=== PATIENT | male | born 1970 | race Caucasian/White ===

== ENCOUNTER 2018-07-15 13:27 | Emergency (ER) | payer OTHER ==
[2018-07-15] MEDS ORDERED: KETOROLAC 30 MG/ML INJ ONE (15:25)
--- NOTE | 2018-07-15 15:39 | RAD REPORT ---
EXAM DESCRIPTION: CT - Stone Protocol - 07/15/2018 3:29 pm CLINICAL HISTORY: Flank pain. FLANK PAIN COMPARISON: Abdomen Pelvis W Contrast dated 10/02/2016 TECHNIQUE: Axial images were obtained without oral or IV contrast. Lack of contrast limits solid org an and vascular assessment. The [id number]-idos spans the entirety of the system partially obscuring uppermost abdomen and lung bases. Coronal reformatted images were obtained and reviewed. All CT scans are performed using dose optimization technique as appropriate and may include automated exposure control or mA/KV adjustment according to patient size. FINDINGS: The lower lung jennings are clear. Imaged portions of the liver and spleen show no suspicious findings on non-contrast imaging. The panc reas and adrenal glands are normal. No pathologic lymphadenopathy in the abdomen or pelvis. Small bilateral renal calculi noted without hydronephrosis. The largest stone measuring 4 mm in the i nferior left calyx. No bowel obstruction, free air, free fluid or abscess. Normal appendix noted. No significant bony abnormality. Postsurgical changes left inguinal region. Small fat containing umbi lical hernia. IMPRESSION: Bilateral nephrolithiasis without hydronephrosis.
--- NOTE | 2018-07-15 15:44 | ER ---
Nurse's Notes [facility] Name: Chi Kelley Age: 48 yrs Sex: Male : 1970 Arrival Date: 07/15/2018 Time: 13:30 Bed 5 Private MD: None, None Diagnosis: Kidney stones;Radiculopathy, lumbar region Presentation: 07/15 14:03 Presenting complaint: Patient states: right lower back pain radiating down right leg aa5 that began Wednesday. Denies known injury. Transition of care: patient was not received from another setting of care. Onset of symptoms was 2017. Risk Assessment: Do you want to hurt yourself or someone else? Patient reports no desire to harm self or others. Initial Sepsis Screen: Does the patient meet any 2 criteria? No. Patient's initial sepsis screen is negative. Does the patient have a suspected source of infection? No. Patient's initial sepsis screen is negative. Care prior to arrival: None. 14:03 Method Of Arrival: Wheelchair aa5 14:03 Acuity: DORIAN 4 aa5 Historical: - Allergies: 14:04 No Known Allergies; aa5 - PMHx: 14:04 chronic back pain; COPD; Hypothyroidism; aa5 - PSHx: 14:04 None; aa5 - Immunization history:: Adult Immunizations unknown. - Social history:: Smoking status: Patient uses tobacco products, smokes one-half pack cigarettes per day. - Ebola Screening: : No symptoms or risks identified at this time. Screenin:32 Abuse screen: Denies threats or abuse. Denies injuries from another. Nutritional ch screening: No deficits noted. Tuberculosis screening: No symptoms or risk factors identified. Fall Risk None identified. Assessment: 15:32 General: Appears in no apparent distress. comfortable, Behavior is calm, cooperative, ch appropriate for age. Pain: Complains of pain in low back area Pain radiates to right leg Pain currently is 8 out of 10 on a pain scale. Pain began wednesday. Neuro: No deficits noted. Level of Consciousness is awake, alert, obeys commands, Oriented to person, place, time, situation, Military Technician are equal bilaterally Moves all extremities. Full function Gait is steady, Speech is normal, Facial symmetry appears normal, Facial symmetry: tongue is midline, Pupils are PERRLA. Cardiovascular: No deficits noted. Respiratory: No deficits noted. GI: No signs and/or symptoms were reported involving the gastrointestinal system. : No signs and/or symptoms were reported regarding the genitourinary system. Derm: Skin is pink, warm \T\ dry. Musculoskeletal: Circulation, motion, and sensation intact. Capillary refill < 3 seconds, in bilateral fingers. toes. Range of motion: intact in all extremities, Swelling absent. 15:56 Reassessment: Patient appears in no apparent distress at this time. Patient and/or ch family updated on plan of care and expected duration. Pain level reassessed. Patient is alert, oriented x 3, equal unlabored respirations, skin warm/dry/pink. Patient states feeling better. Patient states symptoms have improved. Vital Signs: 14:04 BP 125 / 96; Pulse 90; Resp 18 S; Temp 97.9(TE); Pulse Ox 99% on R/A; Weight 86.18 kg aa5 (R); Height 5 ft. 9 in. (175.26 cm) (R); Pain 9/10; 15:32 BP 128 / 88; Pulse 78; Resp 15; Temp 98.8; Pulse Ox 99% on R/A; Pain 8/10; ch 15:56 BP 119 / 77; Pulse 76; Resp 14; Temp 98.5; Pulse Ox 99% on R/A; Pain 7/10; ch 14:04 Body Mass Index 28.06 (86.18 kg, 175.26 cm) aa5 ED Course: 13:30 Patient arrived in ED. mr 13:31 None, None is Private Physician. mr 14:04 Triage completed. aa5 14:04 Arm band placed on. aa5 14:24 Andrew Jewell RN is Primary Nurse. jl 14:25 Melinda Guaman FNP-C is [facility]. snw 14:25 Yassine Jauregui MD is Attending Physician. snw 15:18 Primary Nurse role handed off by Andrew Jewell RN 15:18 Jazmin Ramirez, MELINA is Primary Nurse. 15:29 CT Stone Protocol In Process Unspecified. EDMS 15:32 Patient has correct armband on for positive identification. Bed in low position. Call ch light in reach. Side rails up X 1. Pulse ox on. NIBP on. 15:32 No provider procedures requiring assistance completed. Patient did not have IV access ch during this emergency room visit. Administered Medications: 15:24 Drug: TORadol 60 mg Route: IM; Site: right gluteus; ss Outcome: 15:43 Discharge ordered by . snw 15:57 Discharged to home ambulatory. 15:57 Condition: stable 15:57 Discharge instructions given to patient, family, Instructed on discharge instructions, follow up and referral plans. medication usage, Demonstrated understanding of instructions, follow-up care, medications, Prescriptions given X 2. 15:58 Patient left the ED. Signatures: Dispatcher [employer] EDMS Jazmin Ramirez, RN RN Melinda Guaman, MUFFLER MECHANIC-C MUFFLER MECHANIC-Csnw Gail Greer mr Abbi Torre, RN RN aa5 Julissa Rico RN RN Andrew Seay RN RN jl7
--- NOTE | 2018-07-15 15:44 | EDPHYS ---
Physician Documentation [facility] Name: Chi Kelley Age: 48 yrs Sex: Male : 1970 Arrival Date: 07/15/2018 Time: 13:30 Bed 5 Private MD: None, None ED Physician Yassine Jauregui HPI: 07/15 15:57 This 48 yrs old Male presents to ER via Wheelchair with complaints of Back snw Pain. 15:57 The patient presents with pain that is acute, with no known mechanism of injury. The snw symptoms are located in the low back. Onset: The symptoms/episode began/occurred suddenly, 3 day(s) ago, and became worse today, and became persistent. The pain radiates to the medial aspect of right thigh and right quadriceps. Associated signs and symptoms: The patient has no apparent associated signs or symptoms. The problem was sustained from unknown cause. Severity of symptoms: At their worst the symptoms were moderate. The patient has experienced similar episodes in the past. It is unknown whether or not the patient has recently seen a physician. 15:58 denies trauma, fever, hematuria. snw Historical: - Allergies: 14:04 No Known Allergies; aa5 - PMHx: 14:04 chronic back pain; COPD; Hypothyroidism; aa5 - PSHx: 14:04 None; aa5 - Immunization history:: Adult Immunizations unknown. - Social history:: Smoking status: Patient uses tobacco products, smokes one-half pack cigarettes per day. - Ebola Screening: : No symptoms or risks identified at this time. ROS: 15:55 Constitutional: Negative for fever, chills, and weight loss, Eyes: Negative for injury, snw pain, redness, and discharge, ENT: Negative for injury, pain, and discharge, Neck: Negative for injury, pain, and swelling, Cardiovascular: Negative for chest pain, palpitations, and edema, Respiratory: Negative for shortness of breath, cough, wheezing, and pleuritic chest pain, Abdomen/GI: Negative for abdominal pain, nausea, vomiting, diarrhea, and constipation, Back: Negative for injury and pain, : Negative for injury, bleeding, discharge, and swelling, Skin: Negative for injury, rash, and discoloration, Neuro: Negative for headache, weakness, numbness, tingling, and seizure, Psych: Negative for depression, anxiety, suicide ideation, homicidal ideation, and hallucinations. 15:55 Back: Negative for injury. + pain to right flank with radiation around to right anterior thigh MS/Extremity: Negative for injury and deformity. Exam: 15:47 Constitutional: This is a well developed, well nourished patient who is awake, alert, snw and in no acute distress. Head/Face: Normocephalic, atraumatic. Eyes: Pupils equal round and reactive to light, extra-ocular motions intact. Lids and lashes normal. Conjunctiva and sclera are non-icteric and not injected. Cornea within normal limits. Periorbital areas with no swelling, redness, or edema. ENT: Nares patent. No nasal discharge, no septal abnormalities noted. Tympanic membranes are normal and external auditory canals are clear. Oropharynx with no redness, swelling, or masses, exudates, or evidence of obstruction, uvula midline. Mucous membranes moist. Neck: Trachea midline, no thyromegaly or masses palpated, and no cervical lymphadenopathy. Supple, full range of motion without nuchal rigidity, or vertebral point tenderness. No Meningismus. Chest/axilla: Normal chest wall appearance and motion. Nontender with no deformity. No lesions are appreciated. Cardiovascular: Regular rate and rhythm with a normal S1 and S2. No gallops, murmurs, or rubs. Normal PMI, no JVD. No pulse deficits. Respiratory: Lungs have equal breath sounds bilaterally, clear to auscultation and percussion. No rales, rhonchi or wheezes noted. No increased work of breathing, no retractions or nasal flaring. Abdomen/GI: Soft, non-tender, with normal bowel sounds. No distension or tympany. No guarding or rebound. No evidence of tenderness throughout. Back: No spinal tenderness. Mild costovertebral tenderness to right. Full range of motion. Skin: Warm, dry with normal turgor. Normal color with no rashes, no lesions, and no evidence of cellulitis. MS/ Extremity: Pulses equal, no cyanosis. Neurovascular intact. Full, normal range of motion. Neuro: Awake and alert, GCS 15, oriented to person, place, time, and situation. Cranial nerves II-XII grossly intact. Motor strength 5/5 in all extremities. Sensory grossly intact. Cerebellar exam normal. Normal gait. Vital Signs: 14:04 BP 125 / 96; Pulse 90; Resp 18 S; Temp 97.9(TE); Pulse Ox 99% on R/A; Weight 86.18 kg aa5 (R); Height 5 ft. 9 in. (175.26 cm) (R); Pain 9/10; 15:32 BP 128 / 88; Pulse 78; Resp 15; Temp 98.8; Pulse Ox 99% on R/A; Pain 8/10; ch 15:56 BP 119 / 77; Pulse 76; Resp 14; Temp 98.5; Pulse Ox 99% on R/A; Pain 7/10; ch 14:04 Body Mass Index 28.06 (86.18 kg, 175.26 cm) aa5 MDM: 14:26 Patient medically screened. snw 15:57 Data reviewed: vital signs, nurses notes. Data interpreted: Pulse oximetry: on room air snw is 99 %. Interpretation: normal. Counseling: I had a detailed discussion with the patient and/or guardian regarding: the historical points, exam findings, and any diagnostic results supporting the discharge/admit diagnosis, the presence of at least one elevated blood pressure reading (>120/80) during this emergency department visit, radiology results, the need for outpatient follow up, to return to the emergency department if symptoms worsen or persist or if there are any questions or concerns that arise at home. Special discussion: I have referred the patient to see his PCP for further evaluation of high blood pressure. Based on the history and exam findings, there is no indication for further emergent testing or inpatient evaluation. I discussed with the patient/guardian the need to see the primary care provider for further evaluation of the symptoms. 07/15 15:15 Order name: CT Stone Protocol; Complete Time: 15:42 snw Administered Medications: 15:24 Drug: TORadol 60 mg Route: IM; Site: right gluteus; ss Disposition: 17:28 Co-signature as Attending Physician, Yassine Jauregui MD. rn Disposition: 07/15/18 15:43 Discharged to Home. Impression: Kidney stones, Radiculopathy, lumbar region. - Condition is Stable. - Discharge Instructions: Kidney Stones, Lumbosacral Radiculopathy, Heat Therapy, Back Injury Prevention. - Prescriptions for Diclofenac Sodium 75 mg Oral Tablet Sustained Release - take 1 tablet by ORAL route 2 times per day; 30 tablet. orphenadrine citrate 100 mg Oral Tablet Sustained Release - take 1 tablet by ORAL route 2 times per day As needed; 20 tablet. - Medication Reconciliation Form, Thank You Letter, Antibiotic Education, Prescription Opioid Use form. - Follow up: Private Physician; When: 2 - 3 days; Reason: Recheck today's complaints, Continuance of care, Re-evaluation by your physician. Follow up: Emergency Department; When: As needed; Reason: Worsening of condition. Signatures: Dispatcher [employer] EDJazmin Jarrett, RN RN Melinda Guaman, PERSONAL INJURY PARALEGAL-C PERSONAL INJURY PARALEGAL-Csnw Yassine Jauregui MD MD rn Calderon, Audri RN RN aa5 Julissa Rico RN RN ss Corrections: (The following items were deleted from the chart) 15:58 15:43 07/15/2018 15:43 Discharged to Home. Impression: Kidney stones; Radiculopathy, ch lumbar region. Condition is Stable. Forms are Medication Reconciliation Form, Thank You Letter, Antibiotic Education, Prescription Opioid Use. Follow up: Private Physician; When: 2 - 3 days; Reason: Recheck today's complaints, Continuance of care, Re-evaluation by your physician. Follow up: Emergency Department; When: As needed; Reason: Worsening of condition. snw
[2018-07-15 16:02] VITALS: O2SAT 99
[2018-07-15 16:05] VITALS: BP 119/77; TEMP 98.5
== END 2018-07-15 15:58 | disposition home or self-care (01) ==
LOC: ER 13:27
DX: N20.0 Calculus of kidney (principal); M54.16 Radiculopathy, lumbar region; F17.210 Nicotine dependence, cigarettes, uncomplicated
CPT/HCPCS: 74176; 76377; 96372; 99284

== ENCOUNTER 2018-08-22 07:15 | Day surgery (SDC) | payer OTHER ==
[2018-08-18 15:13] LABS: Absolute Lymphocytes (CBC) 2.1 K/uL (0.7-4.9); Absolute Monocytes 0.5 K/uL (0.1-1.3); Absolute Neutrophil 4.8 K/uL (1.8-8.0); Basophils % 0.9 % (0-1.3); Eosinophils % 2.3 % (0-4.4); Hematocrit 44.1 % (39.6-49.0); Lymphocytes % 27.3 % (15.3-44.8); MCH 32.5 pg (27.0-35.0); MCV 93.5 fL (80-100); MPV 9.8 fL (7.6-11.3); Monocytes % 6.9 % (3.3-12.3); RBC Red Blood Cell Count 4.71 M/uL (4.33-5.43)
[2018-08-18 15:23] LABS: Albumin 4.1 g/dL (3.4-5.0); Bilirubin Direct 0.1 mg/dL (0-0.2); Bilirubin Total 0.4 mg/dL (0.2-1.0); Potassium 4.3 mmol/L (3.5-5.1); Protein, Total 7.4 g/dL (6.4-8.2)
--- NOTE | 2018-08-18 15:52 | RAD REPORT ---
EXAM DESCRIPTION: RAD - Chest Pa And Lat (2 Views) - 08/18/2018 3:00 pm CLINICAL HISTORY: Preop chest, pending cholecystectomy COMPARISON: September 2016 TECHNIQUE: PA and lateral views of the chest were obtained. FINDINGS: The lungs are clear of failure, infiltrate or mass. Interstitial markings are prominent bu t not clearly different. Heart size is normal and central vasculature is within normal limits. No pleural effusion or pneumothorax seen. No acute bony finding noted. No aortic abnormality. IMPRESSION: No acute cardiopulmonary process. No significant change from 2016.
--- NOTE | 2018-08-18 22:06 | EKG ---
Test Date: 2018-08-18 Test Time: 14:40:33 General Clerk: COLIN MEASUREMENT RESULTS: Intervals: Rate: 75 MO: 180 QRSD: 80 QT: 352 QTc: 393 [place]: P: 38 MO: 180 QRS: 34 T: 35 INTERPRETIVE STATEMENTS: Normal sinus rhythm Normal ECG Compared to ECG 10/17/2015 13:12:32 No significant changes Electronically Signed On 08-18-18 22:05:57 CDT by Parveen Connor
[2018-08-22] MEDS ORDERED: CEFOXITIN/SWI 1gm 1 GM/10 ML SYR ONE (08:08)
[2018-08-22] MEDS ORDERED: Ringers Lactate 1,000 ML IV ONE (08:08)
[2018-08-22] MEDS ORDERED: FENTANYL CITR 250 MCG/5 ML ONE (08:13)
[2018-08-22] MEDS ORDERED: PROPOFOL 200 MG/20 ML VIAL IV ONE (08:15)
[2018-08-22] MEDS ORDERED: ROCURONIUM 50 MG/5 ML VIAL IV ONE (08:15)
[2018-08-22] MEDS ORDERED: NEOSTIGMINE 1 MG/ML -5 ML SYRINGE ONE (08:15)
[2018-08-22] MEDS ORDERED: GLYCOPYRROLATE 0.2 MG/ML SYR ONE ×2 (08:17)
[2018-08-22] MEDS ORDERED: MIDAZOLAM HCL 2 MG/2 ML INJ ONE (08:18)
[2018-08-22] MEDS ORDERED: NA CHLORIDE 0.9% 500 ML ONE (09:03)
--- NOTE | 2018-08-22 09:29 | P.BOP ---
Preoperative diagnosis: acute cholecystitis, symptomatic cholelithiasis, RUQ abd pain Postoperative diagnosis: same, incarcerated umbilical hernia Primary procedure: 1. Laparoscopic cholecystectomy Secondary procedure: 2. open repair of incarcerated umbilical hernia Diver Assistant: Alla Hinds) Estimated blood loss: <20 Specimen: gb Findings: same Anesthesia: General Complications: None Transferred to: Recovery Room Condition: Good
[2018-08-22] MEDS: MEPERIDINE HCL 50 MG/ML AMP ONE ×2 (09:44→09:49)
[2018-08-22] MEDS ORDERED: MEPERIDINE HCL 50 MG/ML AMP ONE (10:03)
[2018-08-22] MEDS ORDERED: CODEINE 30MG/APAP 300MG TAB ONE (10:25)
[2018-08-22 11:36] VITALS: TEMP 96.9
[2018-08-22 11:37] VITALS: BP 122/72; O2SAT 97
--- NOTE | 2018-08-22 20:48 | OP ---
Date of Procedure: 08/22/2018 Surgeon: Trino Vick MD Rn Integrated: Alla Munoz Preoperative Diagnoses: Acute cholecystitis, symptomatic cholelithiasis, and right upper quadrant ab dominal pain. Postoperative Diagnoses: Acute cholecystitis, symptomatic cholelithiasis, and right upper quadrant a bdominal pain. Procedures: 1.Laparoscopic cholecystectomy. 2.Open repair of incarcerated umbilical hernia. Estimated Blood Loss: Less than 20 cc. Specimen: Gallbladder. Anesthesia: General plus local. Indications: This is a case of a 48-year-old patient, comes to us with above diagnosis. Fully expla ined the benefits, alternatives, and risks of laparoscopic, possible open cholecystectomy, which incl ude but not limited to infection, bleeding, damage to adjacent structures, anesthesia complication, r ecurrence, [place], and even . He also understands this may not relieve any symptoms. He might need more than one surgical intervention. He understood, signed a consent. Description Of Procedure: The patient was brought to the operating room and placed in supine positio n. Anesthesia was achieved without complication. Abdominal area was prepped and draped in the usual sterile fashion. Marcaine 0.5% injected for local anesthetic, followed by sharp incision of the ski n in the infraumbilical region. Incision was carried down to fascia and we noticed the patient to nichole ve an incarcerated umbilical hernia. The hernia sac was opened. Incarcerated omentum was carefully retracted back into the abdominal cavity after fully inspected to make sure there was no bleeding and after adhesions were removed from that omentum to the hernia sac. The hernia sac was removed. The fascial edges were cleaned. We placed Vicryl #1 inside the fascia. Joy trocar was carefully intr oduced. Pneumoperitoneum was obtained. After that, I placed 3 more trocars, 5 mm each one of them, in the right upper quadrant. We localized the area of the gallbladder, some adhesions of omentum to the gallbladder. The patient had inflammation of the gallbladder. A grasper was placed in the fundu s of the gallbladder, another grasper in the infundibulum, retracted the gallbladder in the inferolat eral fashion exposing the triangle of Calot and obtaining critical view of safety. Cystic duct and c ystic artery were clearly isolated, freed circumferentially and a connection between those and the ga llbladder was clearly identified. I proceeded to ligate those by using at least 3 clips proximal, 1 clip distal, and ligation in middle. Same was done with the cystic artery. No bile leak. No bleedi ng. The gallbladder was removed from liver using Bovie cauterizer and removed from abdominal cavity using an EndoCatch through umbilical incision. The area was inspected once again. No bile leak. No bleeding. Clips were intact. Gallbladder fossa was intact. At that moment, I proceeded to remove the trocars under direct vision. Deflated the pneumoperitoneum. Closed the fascia with #1 Vicryl. Irrigated subcutaneous tissue. Closed the umbilical hernia with #1 Vicryl. Then, closed with 3-0 ch romic the subcutaneous tissue and then the skin with mitchell. Sponge count and instrument count were correct. The patient tolerated the procedure well. The patient was sent to Recovery in stable cond ition. POOJA/ANA Voice ID: [id number] Report ID: [id number]
--- NOTE | 2018-08-22 20:54 | DS ---
Date of Discharge: 08/22/2018 Diagnoses: Acute cholecystitis, symptomatic cholelithiasis, right upper quadrant abdominal pain and incarcerated umbilical hernia. Procedures: Laparoscopic cholecystectomy and repair of an incarcerated umbilical hernia. Disposition: Home. Activity: As tolerated. No heavy lifting. Followup: Follow up in my office in 1 week. Call for appointment on [phone]. Keep area dry for 48 hours, then may shower. May replace the gauze after 48 hours and use triple antibiotics. Medications: Include Tylenol No. 3 q.4 hours p.r.n. pain and Bactrim DS p.o. b.i.d. POOJA/ANA Voice ID: [id number] Report ID: [id number]
== END 2018-08-22 11:05 | disposition home or self-care (01) ==
LOC: OR 07:15
PROVIDERS: ATTEND Surgery
PROC: 0WQF0ZZ Repair Abdominal Wall, Open Approach (ICD-10-PCS; 2018-08-22)
PROC: 0FT44ZZ Resection of Gallbladder, Percutaneous Endoscopic Approach (ICD-10-PCS; principal; 2018-08-22 08:30)
DX: K80.12 Calculus of gallbladder with acute and chronic cholecystitis without obstruction (principal); K42.0 Umbilical hernia with obstruction, without gangrene; J44.9 Chronic obstructive pulmonary disease, unspecified; E07.9 Disorder of thyroid, unspecified; F17.210 Nicotine dependence, cigarettes, uncomplicated; Z80.9 Family history of malignant neoplasm, unspecified
CPT/HCPCS: 36415; 47562; 49587; 71046; 80048; 80076; 82150; 83690; 85025; 88302; 88304; 93005; J2175 ×2; J2250; J2704; J2710; J3010

== ENCOUNTER 2018-12-16 11:11 | Inpatient (IN) | payer OTHER ==
[2018-12-16 11:43] LABS: Absolute Lymphocytes (CBC) 1.9 K/uL (0.7-4.9); Absolute Monocytes 0.8 K/uL (0.1-1.3); Basophils % 0.5 % (0-1.3); Hematocrit 45.3 % (39.6-49.0); Lymphocytes % 17.4 % (15.3-44.8); MPV 9.2 fL (7.6-11.3); Monocytes % 7.7 % (3.3-12.3); RBC Red Blood Cell Count 4.99 M/uL (4.33-5.43)
[2018-12-16] MEDS ORDERED: MORPHINE 4 MG/ML SYR ONE ×2 (11:43→13:50)
[2018-12-16] MEDS ORDERED: ONDANSETRON 4 MG/2 ML VIAL ONE (11:43)
[2018-12-16 11:55] LABS: Albumin 4.4 g/dL (3.4-5.0); Bilirubin Direct 0.3 mg/dL (0-0.2); Potassium 3.8 mmol/L (3.5-5.1); Protein, Total 7.9 g/dL (6.4-8.2)
--- NOTE | 2018-12-16 12:30 | RAD REPORT ---
EXAM DESCRIPTION: CTAbdomen Pelvis W Contrast - 12/16/2018 12:16 pm CLINICAL HISTORY: Abdominal pain. ABD PAIN COMPARISON: Abdomen Pelvis W Contrast dated 10/02/2016; CT ABD PELVIS W CONTRAST dated 02/15/2013; S tone Protocol dated 07/15/2018 TECHNIQUE: Biphasic CT imaging of the abdomen and pelvis was performed with 100 ml non-ionic IV cont rast. All CT scans are performed using dose optimization technique as appropriate and may include automated exposure control or mA/KV adjustment according to patient size. FINDINGS: The lung bases are clear. The liver, spleen, pancreas, adrenal glands and kidneys are within normal limits. Cholecystectomy cli ps. Proximal aspect of the stomach appears dilated with multiple prominent small bowel loops seen through out the abdomen. No pneumoperitoneum or intra-abdominal abscess. The appendix is normal. Postsurgical clips are seen in the left inguinal region. No evidence of significant lymphadenopathy. No suspicious bony findings. IMPRESSION: Multiple dilated and thickened small bowel loops are seen in the abdomen suspicious for developing mechanical obstruction. Advise followup imaging in 24-48 hours for further assessment.
--- NOTE | 2018-12-16 13:05 | EDPHYS ---
Physician Documentation [facility] Name: Chi Kelley Age: 48 yrs Sex: Male : 1970 Arrival Date: 12/16/2018 Time: 11:13 Bed 5 Private MD: ED Physician Jaime Benitez HPI: 12/16 12:03 This 48 yrs old Male presents to ER via EMS with complaints of Abdominal Pain.pm1 12:03 The patient presents with abdominal pain right lower quadrant. Onset: The pm1 symptoms/episode began/occurred last night. The symptoms do not radiate. Associated signs and symptoms: Pertinent positives: nausea, Pertinent negatives: chest pain, diarrhea, dysuria, fever, shortness of breath, vomiting. The symptoms are described as crampy. Modifying factors: The symptoms are alleviated by nothing, the symptoms are aggravated by nothing. Severity of pain: in the emergency department the pain is actually worse is a 7 / 10. The patient has not experienced similar symptoms in the past. The patient has not recently seen a physician. Historical: - Allergies: 11:17 No Known Allergies; jl7 - Home Meds: 11:17 Flexeril 10 mg Oral tab 1 tab daily [Active]; levothyroxine oral once daily [Active]; jl7 Trazodone Oral nightly [Active]; Albuterol Inhl 3 times per day [Active]; - PMHx: 11:17 chronic back pain; COPD; Hypothyroidism; jl7 - PSHx: 11:17 Cholecystectomy; Hernia repair; jl7 - Immunization history:: Adult Immunizations unknown. - Social history:: Smoking status: Patient uses tobacco products, smokes one-half pack cigarettes per day. - Ebola Screening: : No symptoms or risks identified at this time. ROS: 12:10 Constitutional: Negative for fever, chills, and weight loss, Eyes: Negative for injury, pm1 pain, redness, and discharge, ENT: Negative for injury, pain, and discharge, Neck: Negative for injury, pain, and swelling, Cardiovascular: Negative for chest pain, palpitations, and edema, Respiratory: Negative for shortness of breath, cough, wheezing, and pleuritic chest pain. 12:10 Back: Negative for injury and pain, : Negative for injury, bleeding, discharge, and swelling, MS/Extremity: Negative for injury and deformity, Skin: Negative for injury, rash, and discoloration, Neuro: Negative for headache, weakness, numbness, tingling, and seizure. 12:10 Abdomen/GI: Positive for abdominal pain, nausea, Negative for vomiting, diarrhea, constipation. Exam: 12:10 Constitutional: This is a well developed, well nourished patient who is awake, alert, pm1 and in no acute distress. Head/Face: Normocephalic, atraumatic. Eyes: Pupils equal round and reactive to light, extra-ocular motions intact. Lids and lashes normal. Conjunctiva and sclera are non-icteric and not injected. Cornea within normal limits. Periorbital areas with no swelling, redness, or edema. ENT: Nares patent. No nasal discharge, no septal abnormalities noted. Tympanic membranes are normal and external auditory canals are clear. Oropharynx with no redness, swelling, or masses, exudates, or evidence of obstruction, uvula midline. Mucous membranes moist. Neck: Trachea midline, no thyromegaly or masses palpated, and no cervical lymphadenopathy. Supple, full range of motion without nuchal rigidity, or vertebral point tenderness. No Meningismus. Chest/axilla: Normal chest wall appearance and motion. Nontender with no deformity. No lesions are appreciated. Cardiovascular: Regular rate and rhythm with a normal S1 and S2. No gallops, murmurs, or rubs. Normal PMI, no JVD. No pulse deficits. Respiratory: Lungs have equal breath sounds bilaterally, clear to auscultation and percussion. No rales, rhonchi or wheezes noted. No increased work of breathing, no retractions or nasal flaring. 12:10 Back: No spinal tenderness. No costovertebral tenderness. Full range of motion. Skin: Warm, dry with normal turgor. Normal color with no rashes, no lesions, and no evidence of cellulitis. MS/ Extremity: Pulses equal, no cyanosis. Neurovascular intact. Full, normal range of motion. 12:10 Abdomen/GI: Inspection: abdomen appears normal, Bowel sounds: normal, Palpation: soft, mild abdominal tenderness, in the right midabdomen, mass, is not appreciated, rebound tenderness, is not appreciated. 12:10 Neuro: Orientation: is normal, Motor: is normal, moves all fours. Vital Signs: 11:17 BP 128 / 77; Pulse 98; Resp 16 S; Temp 98.3(O); Pulse Ox 96% on R/A; jl7 12:23 BP 122 / 70; Pulse 86; Resp 16 S; Pulse Ox 97% on R/A; jl7 13:27 BP 120 / 85; Pulse 85; Resp 16 S; Pulse Ox 98% on R/A; jl7 MDM: 11:22 Patient medically screened. pm1 12:11 Data reviewed: vital signs. Data interpreted: Pulse oximetry: on room air is 96 %. pm1 Interpretation: normal. 12:50 Physician consultation: Trino Vick MD discussed case with Dr. Vick. Is out of pm1 town and will not be back until Wednesday. Requests surgeon case monitor to be consulted. 13:01 Counseling: I had a detailed discussion with the patient and/or guardian regarding: the pm1 historical points, exam findings, and any diagnostic results supporting the discharge/admit diagnosis, lab results, radiology results, the need for further work-up and treatment in the hospital. 13:04 Physician consultation: Sharyn Torres MD was called at 13:04, was contacted at 13:04, pm1 regarding admission, patient's condition. 13:40 Physician consultation: Khari Kohler MD was called at 13:40, was contacted at 13:40, pm1 regarding admission, consult, patient's condition, Patient is not actively vomiting so currently no need for NG tube placement. 12/16 11:26 Order name: Basic Metabolic Panel; Complete Time: 11:57 pm1 12/16 11:26 Order name: CBC with Diff; Complete Time: 11:57 pm1 12/16 11:26 Order name: Creatinine for Radiology; Complete Time: 11:57 pm12/16 11:26 Order name: Hepatic Function; Complete Time: 11:57 pm1 12/16 11:26 Order name: Lipase; Complete Time: 11:57 pm1 12/16 12:36 Order name: Urine Dipstick--Ancillary (enter results); Complete Time: 13:29 eb 12/16 11:26 Order name: IV Saline Lock; Complete Time: 11:36 pm1 12/16 11:26 Order name: Labs collected and sent; Complete Time: 11:37 pm1 12/16 11:26 Order name: CT Abd/Pelvis - W/Contrast: IV contrast only; Complete Time: 12:39 pm1 12/16 13:16 Order name: NPO EDFL 12/16 11:26 Order name: Urine Dipstick-Ancillary (obtain specimen); Complete Time: 11:37 pm1 Administered Medications: 11:34 Drug: Zofran 4 mg Route: IVP; Site: left antecubital; jl7 12:24 Follow up: Response: No adverse reaction; Nausea is decreased jl7 11:36 Drug: morphine 4 mg Route: IVP; Site: left antecubital; jl7 12:24 Follow up: Response: No adverse reaction; Pain is decreased jl7 13:41 Drug: NS 0.9% 1000 ml Route: IV; Rate: 1000 ml; Site: left antecubital; jl7 14:30 Follow up: IV Status: Completed infusion jl7 13:41 Drug: morphine 4 mg Route: IVP; Site: left antecubital; jl7 14:00 Follow up: Response: No adverse reaction; Pain is decreased jl7 Disposition: 15:43 Co-signature as Attending Physician, Jaime Benitez MD I agree with the assessment and kdr plan of care. Disposition: 12/16/18 13:04 Hospitalization ordered by Sharyn Torres for Inpatient Admission. Preliminary diagnosis is Small bowel obstruction. - Bed requested for Telemetry/MedSurg (Inpatient). - Status is Inpatient Admission. jl7 - Condition is Stable. - Problem is new. - Symptoms have improved. UTI on Admission? No Signatures: Dispatcher [facility] Tanisha Carroll RN RN Jaime Benitez MD MD kdr Marinas, Patrick, NP APPAREL MANAGER pm1 Andrew Jewell RN RN jl7 Corrections: (The following items were deleted from the chart) 13:26 13:04 Hospitalization Ordered by Sharyn Torres MD for Inpatient Admission. Preliminary dylan diagnosis is Small bowel obstruction. Bed requested for Telemetry/MedSurg (Inpatient). Status is Inpatient Admission. Condition is Stable. Problem is new. Symptoms have improved. UTI on Admission? No. pm1 14:44 13:26 12/16/2018 13:04 Hospitalization Ordered by Sharyn Torres MD for Inpatient jl7 Admission. Preliminary diagnosis is Small bowel obstruction. Bed requested for Telemetry/MedSurg (Inpatient). Status is Inpatient Admission. Condition is Stable. Problem is new. Symptoms have improved. UTI on Admission? No. dw
--- NOTE | 2018-12-16 13:05 | ER ---
Nurse's Notes [facility] Name: Chi Kelley Age: 48 yrs Sex: Male : 1970 Arrival Date: 12/16/2018 Time: 11:13 Bed 5 Private MD: Diagnosis: Small bowel obstruction Presentation: 12/16 11:14 Presenting complaint: EMS states: RLQ abd pain started last night, worse today. Last BM jl7 was today and normal. Transition of care: patient was not received from another setting of care. Onset of symptoms was December 15, 2018. Risk Assessment: Do you want to hurt yourself or someone else? Patient reports no desire to harm self or others. Initial Sepsis Screen: Does the patient meet any 2 criteria? No. Patient's initial sepsis screen is negative. Does the patient have a suspected source of infection? No. Patient's initial sepsis screen is negative. Care prior to arrival: IV initiated. 20 GA, in the left antecubital area, Glucose check: 118. 11:14 Method Of Arrival: EMS: [facility] jl7 11:14 Acuity: DORIAN 3 jl7 Triage Assessment: 11:17 General: Appears in no apparent distress. uncomfortable, Behavior is calm, cooperative, jl7 appropriate for age. Pain: Complains of pain in right lower quadrant Pain radiates to right upper quadrant Pain currently is 8 out of 10 on a pain scale. Quality of pain is described as sharp, Pain began 1 day ago. Is continuous. EENT: No signs and/or symptoms were reported regarding the EENT system. Neuro: Level of Consciousness is awake, alert, obeys commands, Oriented to person, place, time, situation. Cardiovascular: Patient's skin is warm and dry. Respiratory: Airway is patent Respiratory effort is even, unlabored, Respiratory pattern is regular, symmetrical. GI: Abdomen is round non-distended, Bowel sounds present X 4 quads. Abd is soft X 4 quads Abd is non tender in right upper quadrant, left upper quadrant and left lower quadrant Abdomen is tender to palpation in right lower quadrant. : No signs and/or symptoms were reported regarding the genitourinary system. Derm: No signs and/or symptoms reported regarding the dermatologic system. Musculoskeletal: No signs and/or symptoms reported regarding the musculoskeletal system. Historical: - Allergies: 11:17 No Known Allergies; jl7 - Home Meds: 11:17 Flexeril 10 mg Oral tab 1 tab daily [Active]; levothyroxine oral once daily [Active]; jl7 Trazodone Oral nightly [Active]; Albuterol Inhl 3 times per day [Active]; - PMHx: 11:17 chronic back pain; COPD; Hypothyroidism; jl7 - PSHx: 11:17 Cholecystectomy; Hernia repair; jl7 - Immunization history:: Adult Immunizations unknown. - Social history:: Smoking status: Patient uses tobacco products, smokes one-half pack cigarettes per day. - Ebola Screening: : No symptoms or risks identified at this time. Screenin:20 Abuse screen: Denies threats or abuse. Denies injuries from another. Nutritional jl7 screening: No deficits noted. Tuberculosis screening: No symptoms or risk factors identified. Fall Risk IV access (20 points). Total Brito Fall Scale indicates No Risk (0-24 pts). Assessment: 11:20 General: See triage assessment. jl7 12:23 Reassessment: Patient appears in no apparent distress at this time. Patient and/or jl7 family updated on plan of care and expected duration. Pain level reassessed. Patient is alert, oriented x 3, equal unlabored respirations, skin warm/dry/pink. Patient states symptoms have improved. 13:27 Reassessment: Patient appears in no apparent distress at this time. Patient and/or jl7 family updated on plan of care and expected duration. Pain level reassessed. Patient is alert, oriented x 3, equal unlabored respirations, skin warm/dry/pink. Vital Signs: 11:17 BP 128 / 77; Pulse 98; Resp 16 S; Temp 98.3(O); Pulse Ox 96% on R/A; jl7 12:23 BP 122 / 70; Pulse 86; Resp 16 S; Pulse Ox 97% on R/A; jl7 13:27 BP 120 / 85; Pulse 85; Resp 16 S; Pulse Ox 98% on R/A; jl7 ED Course: 11:13 Patient arrived in ED. jl7 11:16 Triage completed. jl7 11:17 Arm band placed on right wrist. jl7 11:20 Patient has correct armband on for positive identification. Bed in low position. Call jl7 light in reach. Side rails up X 1. Pulse ox on. NIBP on. Warm blanket given. 11:20 Maintain EMS IV. Dressing intact. Good blood return noted. Site clean \T\ dry. Gauge \T\ jl 7 site: 20 left AC. 11:22 Luis Angel Suazo NP is PHCP. pm1 11:22 Jaime Benitez MD is Attending Physician. pm1 11:29 Andrew Jewell RN is Primary Nurse. jl7 11:52 Radiology exam delayed due to lab results not completed at this time. (BUN/Creatinine). vm2 12:[address] vm2 12:14 CT completed. Patient tolerated procedure well. Patient moved back from CT. vm2 12:16 CT Abd/Pelvis - W/Contrast: IV contrast only In Process Unspecified. EDMS 13:03 Sharyn Torres MD is Hospitalizing Provider. pm1 14:43 No provider procedures requiring assistance completed. Patient admitted, IV remains in jl7 place. intact, No redness/swelling at site. Administered Medications: 11:34 Drug: Zofran 4 mg Route: IVP; Site: left antecubital; jl7 12:24 Follow up: Response: No adverse reaction; Nausea is decreased jl7 11:36 Drug: morphine 4 mg Route: IVP; Site: left antecubital; jl7 12:24 Follow up: Response: No adverse reaction; Pain is decreased jl7 13:41 Drug: NS 0.9% 1000 ml Route: IV; Rate: 1000 ml; Site: left antecubital; jl7 14:30 Follow up: IV Status: Completed infusion jl7 13:41 Drug: morphine 4 mg Route: IVP; Site: left antecubital; jl7 14:00 Follow up: Response: No adverse reaction; Pain is decreased jl7 Outcome: 13:04 Decision to Hospitalize by Provider. pm1 14:43 Admitted to Tele accompanied by tech, family with patient, via wheelchair, room 224, jl7 with chart, Report called to MELINA Ramirez 14:43 Condition: stable 14:43 Discharge instructions given to patient, family, Instructed on the need for admit, Demonstrated understanding of instructions. 14:44 Patient left the ED. jl7 Signatures: Dispatcher [employer] EDMS Luis Angel Suazo NP DIRECTOR EQUIPMENT pm1 Andrew Jewell RN RN jl7 Rodriguez, Fifi vm2
[2018-12-16 13:28] LABS: Urine Blood NEGATIVE (NEG); Urine Glucose NEGATIVE (NEG); Urine Protein 3+ (NEG); Urine pH 6.5 (5.0-7.0)
--- NOTE | 2018-12-16 13:38 | P.HP ---
Certification for Inpatient Patient admitted to: Observation With expected LOS: <2 Midnights Patient will require the following post-hospital care: None Practitioner: I am a practitioner with admitting privileges, knowledge of patient current condition, hospital course, and medical plan of care. Services: Services provided to patient in accordance with Admission requirements found in Title 42 Section 412.3 of the Code of Federal Regulations Patient History Date of Service: 12/16/18 History of Present Illness: This is a 48-year-old male with significant past medical history of hypothyroidism, hernia repair in the past of presented to the ED complaining of having some right lower quadrant pain and nausea and vomiting. Patient stated that he had previous symptoms similar to this in 2016 when he had some oranges and started having abdominal pain. This time as well he had some oranges and started having the abdominal pain. Patient stated that he had 1 vomiting episode at the house that was really nauseous. Patient had his bowel movement today in the morning and after that he has been feeling really gassy as well. He had recently been seen here in the hospital also for gallbladder surgery In the ER patient was having abdominal tenderness along with some nausea and was found to have small bowel obstruction on the CT scan and thus was admitted for further care. NG tube was inserted due to continuous nausea and abdominal pain. Allergies No Known Allergies Allergy (Verified 08/18/18 14:16) Home medications list reviewed: Yes Home Medications: Levothyroxine [Synthroid*] 1 tab PO DAILY 10/03/16 Albuterol Neb [Proventil 0.083% Neb Soln] 2.5 mg NEB PRN PRN 08/18/18 Cyclobenzaprine [Flexeril] 10 mg PO BEDTIME 08/18/18 Trazodone [Desyrel] 50 mg PO BEDTIME 08/18/18 - Past Medical/Surgical History Diabetic: No -: Hypothyroidism -: GERD -: COPD -: Glaucoma -: BPH -: Tobacco abuse -: Left inguinal hernia repair -: Ankle surgery Psychosocial/ Personal History: He is , has 1 child, he does not work. He is currently disabled. - Family History Family History: Reviewed- Non-Contributory - Family History Mother -: Cancer (Lung and brain cancer) Father -: Lung disease (Asbestosis), Cancer - Social History Smoking Status: Current every day smoker Counseled patient to stop smoking for: more than 10 minutes Smoking therapy provided: Yes Patient receptive to therapy: No Alcohol use: No CD- Drugs: No Caffeine use: Yes Place of Residence: Home Review of Systems 10-point ROS is otherwise unremarkable Physical Examination - Physical Exam General: Alert, In no apparent distress HEENT: Atraumatic, PERRLA, Mucous membr. moist/pink, EOMI, Sclerae nonicteric Neck: Supple, 2+ carotid pulse no bruit, No LAD, Without JVD or thyroid abnormality Respiratory: Clear to auscultation bilaterally, Normal air movement Cardiovascular: Regular rate/rhythm, Normal S1 S2 Gastrointestinal: Normal bowel sounds, Tenderness (RLQ) Musculoskeletal: No tenderness Integumentary: No rashes Neurological: Normal gait, Normal speech, Normal strength at 5/5 x4 extr, Normal tone, Normal affect Lymphatics: No axilla or inguinal lymphadenopathy - Studies Laboratory Data (last 24 hrs) 12/16/18 11:30: Creatinine 0.99 12/16/18 11:30: WBC 10.9, Hgb 15.5, Hct 45.3, Plt Count 282 12/16/18 11:30: Sodium 141, Potassium 3.8, BUN 16, Creatinine 0.98, Glucose 131 H, Total Bilirubin 1.0, AST 20, ALT 37, Alkaline Phosphatase 76, Lipase 84 Assessment and Plan - Problems (Diagnosis) (1) Small bowel obstruction Onset Date: 10/05/16 Current Visit: No Status: Acute Plan: SBO on ABD CT 2.2 to Adhesion vs allergic reaction to orange -NPO, IV fluids and NG tube -General Surgery consulted. Appreciate Reccs -Encourage Ambulation (2) BPH (benign prostatic hyperplasia) Onset Date: 10/05/16 Current Visit: No Status: Chronic Qualifiers: Lower urinary tract symptom presence: symptoms absent Qualified Code(s): N40.0 - Benign prostatic hyperplasia without lower urinary tract symptoms (3) COPD (chronic obstructive pulmonary disease) Onset Date: 10/05/16 Current Visit: No Status: Chronic Qualifiers: COPD type: chronic bronchitis Chronic bronchitis type: simple Qualified Code(s): J41.0 - Simple chronic bronchitis (4) GERD (gastroesophageal reflux disease) Onset Date: 10/05/16 Current Visit: No Status: Chronic Qualifiers: Esophagitis presence: without esophagitis Qualified Code(s): K21.9 - Gastro -esophageal reflux disease without esophagitis (5) Hypothyroidism Onset Date: 10/05/16 Current Visit: No Status: Chronic Qualifiers: Hypothyroidism type: acquired Qualified Code(s): E03.9 - Hypothyroidism, unspecified (6) Tobacco abuse Onset Date: 10/05/16 Current Visit: No Status: Chronic Discharge Plan: Home Plan to discharge in: 48 Hours - Advance Directives Does patient have a Living Will: No Does patient have a Durable POA for Healthcare: No - Code Status/Comfort Care Code Status Assessed: Yes Critical Care: No
[2018-12-16] MEDS ORDERED: NA CHLORIDE 0.9% 1,000 ML ONE (13:46)
[2018-12-16] MEDS ORDERED: ONDANSETRON 4 MG/2 ML VIAL IV PRN (14:35)
[2018-12-16 15:19] VITALS: BMI 27.3
[2018-12-16] MEDS: NA CHLORIDE 0.9% 1,000 ML IV SCH (15:53)
--- NOTE | 2018-12-16 16:32 | RAD REPORT ---
EXAM DESCRIPTION: RAD - Chest Single View - 12/16/2018 4:20 pm CLINICAL HISTORY: NG TUBE PLACEMENT Chest pain. COMPARISON: Chest Pa And Lat (2 Views) dated 08/18/2018; Abdomen Acute Series dated 10/05/2016; Abdom en Acute Series dated 10/04/2016; CHEST SINGLE VIEW dated 10/17/2015 FINDINGS: Portable technique limits examination quality. The enteric tube tip is in the stomach.
[2018-12-16] MEDS ORDERED: ALBUTEROL 2.5 MG/3 ML NEB SOL NEB PRN (18:54)
--- NOTE | 2018-12-16 21:08 | CON ---
Date of Consultation: 12/16/2018 Brief History Of Present Illness: The patient is a 48-year-old male, who [facility] with 1-day history of global abdominal bloating, distention, nausea, vomiting, similar to epi sodes before he has had in the past. He does have a history of small bowel obstruction before in the past, resolved without surgical intervention. He states this felt very much like this and occurred after eating of either an orange or an apple, he cannot recall exactly. He believes it was an orange on both occasions. He states that he does not have any fever, chills. No constitutional complaints . No sick contacts. No recent travel. No new food exposures. He has had several abdominal surgeri es before in the past. Past Medical History: Significant for hypothyroidism, GERD, COPD, glaucoma, BPH, tobacco abuse. Past Surgical History: Includes an ankle surgery, left inguinal hernia repair, umbilical hernia repa ir, and cholecystectomy. Allergies: NO KNOWN DRUG ALLERGIES. Home Medications: Include Nexium, Synthroid, Proventil, Flexeril, Desyrel, Tylenol with Codeine, and Bactrim. Family History: Reviewed, noncontributory, although his mother had lung cancer, brain cancer. Juan R patel had asbestosis and cancer. Social History: Smoking, he is a current everyday smoker, has approximately 20 pack year history. Katharina sim denies alcohol or recreational drug use. Review of Systems: A 10-point review of systems other than HPI, denies. Physical Examination: Vital Signs: At the time of my examination, his BMI is 27.4. His blood pressure 120/85, pulse is 85 , respiratory rate 16, temperature is 98.3. General: He is awake, alert, oriented. Psychiatric: He is appropriate, conversive. HEENT: He is normocephalic. His sclerae are anicteric. His mucous membranes are moist. He has poo r dentition. His oropharynx is otherwise clear. Neck: Supple with no JVD. Chest: Normal expansion and excursion. Cardiovascular: Regular rate and rhythm. Pulmonary: Clear to auscultation bilaterally. Abdomen: Soft with positive mild global tenderness to palpation. No rebound. No guarding. No foca l peritonitis. It is nondistended. He has well-healed surgical scars evident. There is no psoas si gn. Extremities: No clubbing, cyanosis, or edema. Skin: Warm and dry. Laboratory Data: Reveals a white blood cell count of 10.9, hemoglobin is 15.5, hematocrit 45.3, plat elet count is 282, neutrophils are 73%. Sodium 141, potassium 3.8, chloride 106, carbon dioxide 26, BUN 16, creatinine is 0.99, glucose is 131, calcium 9.8, total bilirubin 1.0, direct component 0.3, A ST 20, ALT 37, alkaline phosphatase is 76, lipase 84. UA showed 2+ ketones, 3+ total protein. He nichole d a CT scan performed of the abdomen and pelvis, which was officially read by Dr. Vick as multiple di lated and thickened small bowel loops are seen in the abdomen suspicious for developing mechanical ob struction. Advised followup imaging in 24-48 hours for further assessment. The proximal aspect of t he stomach appears dilated with multiple prominent small bowel loops seen throughout the abdomen. No pneumoperitoneum or intraabdominal abscess. The appendix is normal. Postsurgical clips seen in the left inguinal region. No evidence of significant lymphadenopathy. Assessment And Plan: This is a 48-year-old male, who presents with signs and symptoms of an early sm all-bowel obstruction. 1.IV fluid hydration. 2.N.p.o. status. 3.Place NG tube for decompression as the patient's stomach appears quite dilated on CT scan. He con tinues to have nausea and had multiple episodes of vomiting this morning. 4.Serial abdominal exams. 5.Continue medical management per Dr. Torres. I will follow along with you. I have explained the ri sks, benefits, and alternatives of possible need for surgical intervention during this admission. Ho wever, we will try nonoperative management as the patient does not have any acute signs or symptoms o f a surgical urgency at this time. Thank you for this interesting consult. AYESHA/ANA Voice ID: [id number] Report ID: [id number]
[2018-12-17] MEDS: MORPHINE 4 MG/ML SYR IV PRN ×2 (00:46→05:30)
[2018-12-17] MEDS: NA CHLORIDE 0.9% 1,000 ML IV SCH ×4 (00:46→20:57)
[2018-12-17] MEDS ORDERED: MORPHINE 4 MG/ML SYR ONE (00:56)
[2018-12-17 05:05] LABS: Absolute Monocytes 1.1 K/uL (0.1-1.3); Basophils % 0.5 % (0-1.3); Eosinophils % 1.2 % (0-4.4); Hematocrit 44.3 % (39.6-49.0); MPV 9.3 fL (7.6-11.3); Monocytes % 8.3 % (3.3-12.3); RBC Red Blood Cell Count 4.85 M/uL (4.33-5.43)
[2018-12-17 05:32] LABS: ALT/SGPT 35 U/L (12-78); AST/SGOT 22 U/L (15-37); Albumin 3.6 g/dL (3.4-5.0); Alkaline Phosphatase 73 U/L (45-117); BUN Blood Urea Nitrogen 17 mg/dL (7-18); Bicarbonate 30 mmol/L (21-32); Bilirubin Total 1.2 mg/dL (0.2-1.0); Glucose Level 109 mg/dL (74-106); Magnesium 1.9 mg/dL (1.8-2.4); Phosphorus 3.3 mg/dL (2.5-4.9); Protein, Total 6.8 g/dL (6.4-8.2); Sodium Level 143 mmol/L (136-145)
[2018-12-17] MEDS ORDERED: SODIUM CHLORIDE 0.9% 10ML INJ IV PRN (05:47)
[2018-12-17] MEDS: PANTOPRAZOLE 40 MG INJ IVP SCH ×3 (06:43→20:57)
--- NOTE | 2018-12-17 10:04 | P.PN ---
Subjective Date of Service: 12/17/18 Subjective: Improving (Patient feels much better, hungry, passing large amount of gas. no pain since NG tube placed.) Physical Examination - Vital Signs Temperature: 97.2 F Blood Pressure: 129/76 Pulse: 79 Respirations: 18 Pulse Ox (%): 96 - Physical Exam General: Alert, In no apparent distress, Cooperative Gastrointestinal: Soft and benign, Non-distended, No ascites, No tenderness, No masses, No rebound, No guarding - Studies Laboratory Data (last 24 hrs) 12/17/18 04:51: Sodium 143, Potassium 4.0, BUN 17, Creatinine 0.88, Glucose 109 H, Phosphorus 3.3, Magnesium 1.9, Total Bilirubin 1.2 H, AST 22, ALT 35, Alkaline Phosphatase 73 12/17/18 04:51: WBC 13.3 H D, Hgb 15.0, Hct 44.3, Plt Count 255 12/16/18 11:30: Creatinine 0.99 12/16/18 11:30: WBC 10.9, Hgb 15.5, Hct 45.3, Plt Count 282 12/16/18 11:30: Sodium 141, Potassium 3.8, BUN 16, Creatinine 0.98, Glucose 131 H, Total Bilirubin 1.0, AST 20, ALT 37, Alkaline Phosphatase 76, Lipase 84 Assessment And Plan - Current Problems (Diagnosis) (1) Small bowel obstruction Onset Date: 10/05/16 Current Visit: No Status: Acute Plan: - SBO resolving - continue serial exams - DC NG tube and start sips of clears - will advance diet as tolerated - monitor leukocytosis
--- NOTE | 2018-12-17 10:52 | P.PN ---
Subjective Date of Service: 12/17/18 Patient seen and examined at bedside with RN. Chart reviewed. Case discussed with general surgery. Currently patient is off of NG tube diet has been advanced. Passing flatulence. No bowel movement yet. Review of Systems 10-point ROS is otherwise unremarkable Physical Examination - Vital Signs Temperature: 97.2 F Blood Pressure: 129/76 Pulse: 79 Respirations: 18 Pulse Ox (%): 96 - Physical Exam General: Alert, In no apparent distress HEENT: Atraumatic, PERRLA, EOMI Neck: Supple, JVD not distended Respiratory: Clear to auscultation bilaterally, Normal air movement Cardiovascular: Regular rate/rhythm, Normal S1 S2 Gastrointestinal: Normal bowel sounds, No tenderness Musculoskeletal: No tenderness Integumentary: No rashes Neurological: Normal speech, Normal tone, Normal affect Lymphatics: No axilla or inguinal lymphadenopathy - Studies Laboratory Data (last 24 hrs) 12/17/18 04:51: Sodium 143, Potassium 4.0, BUN 17, Creatinine 0.88, Glucose 109 H, Phosphorus 3.3, Magnesium 1.9, Total Bilirubin 1.2 H, AST 22, ALT 35, Alkaline Phosphatase 73 12/17/18 04:51: WBC 13.3 H D, Hgb 15.0, Hct 44.3, Plt Count 255 12/16/18 11:30: Creatinine 0.99 12/16/18 11:30: WBC 10.9, Hgb 15.5, Hct 45.3, Plt Count 282 12/16/18 11:30: Sodium 141, Potassium 3.8, BUN 16, Creatinine 0.98, Glucose 131 H, Total Bilirubin 1.0, AST 20, ALT 37, Alkaline Phosphatase 76, Lipase 84 Medications List Reviewed: Yes Assessment And Plan - Current Problems (Diagnosis) (1) Small bowel obstruction Onset Date: 10/05/16 Current Visit: No Status: Acute Plan: SBO on ABD CT 2.2 to Adhesion vs allergic reaction to orange -NG tube discontinued at this time. Will continue with IV fluids and clear liquid diet. -General Surgery consulted. Appreciate Reccs -Encourage Ambulation (2) BPH (benign prostatic hyperplasia) Onset Date: 10/05/16 Current Visit: No Status: Chronic Qualifiers: Lower urinary tract symptom presence: symptoms absent Qualified Code(s): N40.0 - Benign prostatic hyperplasia without lower urinary tract symptoms (3) COPD (chronic obstructive pulmonary disease) Onset Date: 10/05/16 Current Visit: No Status: Chronic Qualifiers: COPD type: chronic bronchitis Chronic bronchitis type: simple Qualified Code(s): J41.0 - Simple chronic bronchitis (4) GERD (gastroesophageal reflux disease) Onset Date: 10/05/16 Current Visit: No Status: Chronic Qualifiers: Esophagitis presence: without esophagitis Qualified Code(s): K21.9 - Gastro -esophageal reflux disease without esophagitis (5) Hypothyroidism Onset Date: 10/05/16 Current Visit: No Status: Chronic Qualifiers: Hypothyroidism type: acquired Qualified Code(s): E03.9 - Hypothyroidism, unspecified (6) Tobacco abuse Onset Date: 10/05/16 Current Visit: No Status: Chronic Discharge Plan: Home Plan to discharge in: 48 Hours - Code Status/Comfort Care Code Status Assessed: Yes Critical Care: No
[2018-12-18 05:04] LABS: Absolute Lymphocytes (CBC) 1.9 K/uL (0.7-4.9); Absolute Monocytes 0.9 K/uL (0.1-1.3); Absolute Neutrophil 5.7 K/uL (1.8-8.0); Basophils % 0.3 % (0-1.3); Hematocrit 39.3 % (39.6-49.0); Lymphocytes % 21.6 % (15.3-44.8); MPV 9.3 fL (7.6-11.3); Monocytes % 10.6 % (3.3-12.3); RBC Red Blood Cell Count 4.27 M/uL (4.33-5.43)
[2018-12-18 05:11] LABS: ALT/SGPT 29 U/L (12-78); AST/SGOT 19 U/L (15-37); Albumin 3.2 g/dL (3.4-5.0); Alkaline Phosphatase 66 U/L (45-117); BUN Blood Urea Nitrogen 13 mg/dL (7-18); Bicarbonate 28 mmol/L (21-32); Bilirubin Total 1.2 mg/dL (0.2-1.0); Glucose Level 107 mg/dL (74-106); Potassium 3.6 mmol/L (3.5-5.1); Protein, Total 6.1 g/dL (6.4-8.2); Sodium Level 142 mmol/L (136-145)
[2018-12-18] MEDS: NA CHLORIDE 0.9% 1,000 ML IV SCH (05:57)
[2018-12-18] MEDS ORDERED: POTASSIUM CL SA 10 MEQ TAB PO ONE (07:00)
[2018-12-18] MEDS: PANTOPRAZOLE 40 MG INJ IVP SCH (08:25)
[2018-12-18 10:35] VITALS: O2SAT 96
--- NOTE | 2018-12-18 11:52 | P.PN ---
Subjective Date of Service: 12/18/18 Subjective: Improving (Patient tolerated diet, no pain, return of normal bowel function) Physical Examination - Vital Signs Temperature: 98.7 F Blood Pressure: 134/80 Pulse: 81 Respirations: 19 Pulse Ox (%): 96 - Physical Exam General: Alert, In no apparent distress, Cooperative HEENT: Mucous membr. moist/pink Gastrointestinal: Soft and benign, Non-distended, No ascites, No tenderness, No masses, No rebound, No guarding - Studies Medications List Reviewed: Yes Assessment And Plan - Current Problems (Diagnosis) (1) Small bowel obstruction Onset Date: 10/05/16 Current Visit: No Status: Acute Plan: - SBO resolved - ok to [place] home from surgical standpoint
--- NOTE | 2018-12-18 13:01 | P.DS ---
Admission Date: 12/17/18 Discharge Date: 12/18/18 Disposition: ROUTINE DISCHARGE Discharge Condition: GOOD Consultations: Gen Surgery - Problems (1) Small bowel obstruction Onset Date: 10/05/16 Current Visit: No Status: Acute (2) BPH (benign prostatic hyperplasia) Onset Date: 10/05/16 Current Visit: No Status: Chronic Qualifiers: Lower urinary tract symptom presence: symptoms absent Qualified Code(s): N40.0 - Benign prostatic hyperplasia without lower urinary tract symptoms (3) COPD (chronic obstructive pulmonary disease) Onset Date: 10/05/16 Current Visit: No Status: Chronic Qualifiers: COPD type: chronic bronchitis Chronic bronchitis type: simple Qualified Code(s): J41.0 - Simple chronic bronchitis (4) GERD (gastroesophageal reflux disease) Onset Date: 10/05/16 Current Visit: No Status: Chronic Qualifiers: Esophagitis presence: without esophagitis Qualified Code(s): K21.9 - Gastro -esophageal reflux disease without esophagitis (5) Hypothyroidism Onset Date: 10/05/16 Current Visit: No Status: Chronic Qualifiers: Hypothyroidism type: acquired Qualified Code(s): E03.9 - Hypothyroidism, unspecified (6) Tobacco abuse Onset Date: 10/05/16 Current Visit: No Status: Chronic Brief History of Present Illness: This is a 48-year-old male with significant past medical history of hypothyroidism, hernia repair in the past of presented to the ED complaining of having some right lower quadrant pain and nausea and vomiting. Patient stated that he had previous symptoms similar to this in 2016 when he had some oranges and started having abdominal pain. This time as well he had some oranges and started having the abdominal pain. Patient stated that he had 1 vomiting episode at the house that was really nauseous. Patient had his bowel movement today in the morning and after that he has been feeling really gassy as well. He had recently been seen here in the hospital also for gallbladder surgery In the ER patient was having abdominal tenderness along with some nausea and was found to have small bowel obstruction on the CT scan and thus was admitted for further care. NG tube was inserted due to continuous nausea and abdominal pain. Hospital Course: Overall during the hospital stay patient main stable Patient was initially admitted to the hospital for small bowel obstruction most likely secondary to oranges versus adhesions. Patient was kept NPO NG tube was placed and IV fluids. Patient had marked improvement in his symptoms. NG tube this was discontinued. Patient's diet was advanced to a clear liquid diet tolerated well and thus was advanced to a soft diet.. Patient then was discharged home under stable condition and was asked to follow up with general surgery in about 1-2 days post discharge Vital Signs/Physical Exam: Temp Pulse Resp BP Pulse Ox 98.7 F 81 19 134/80 96 12/18/18 11:51 12/18/18 11:51 12/18/18 11:51 12/18/18 11:51 12/18/18 11:51 General: Alert, In no apparent distress HEENT: Atraumatic, PERRLA, EOMI Neck: Supple, JVD not distended Respiratory: Clear to auscultation bilaterally, Normal air movement Cardiovascular: Regular rate/rhythm, Normal S1 S2 Gastrointestinal: Normal bowel sounds, No tenderness Musculoskeletal: No tenderness Integumentary: No rashes Neurological: Normal speech, Normal tone, Normal affect Lymphatics: No axilla or inguinal lymphadenopathy Laboratory Data at Discharge: WBC 8.9 K/uL (4.3-10.9) D 12/18/18 04:33 Hgb 13.5 g/dL (13.6-17.9) L 12/18/18 04:33 Hct 39.3 % (39.6-49.0) L 12/18/18 04:33 Plt Count 215 K/uL (152-406) 12/18/18 04:33 Sodium 142 mmol/L (136-145) 12/18/18 04:33 Potassium 3.6 mmol/L (3.5-5.1) 12/18/18 04:33 BUN 13 mg/dL (7-18) 12/18/18 04:33 Creatinine 0.86 mg/dL (0.55-1.3) 12/18/18 04:33 Glucose 107 mg/dL (74-106) H 12/18/18 04:33 Phosphorus 3.3 mg/dL (2.5-4.9) 12/17/18 04:51 Magnesium 1.9 mg/dL (1.8-2.4) 12/17/18 04:51 Total Bilirubin 1.2 mg/dL (0.2-1.0) H 12/18/18 04:33 AST 19 U/L (15-37) 12/18/18 04:33 ALT 29 U/L (12-78) 12/18/18 04:33 Alkaline Phosphatase 66 U/L (45-117) 12/18/18 04:33 Lipase 84 U/L (73-393) 12/16/18 11:30 Home Medications: Levothyroxine [Synthroid*] 1 tab PO DAILY 10/03/16 Albuterol Neb [Proventil 0.083% Neb Soln] 2.5 mg NEB PRN PRN 08/18/18 Cyclobenzaprine [Flexeril*] 10 mg PO BEDTIME 08/18/18 Trazodone [Desyrel*] 50 mg PO BEDTIME 08/18/18 Diet: Regular Activity: Ad denise Followup: Trino Vick MD [ACTIVE - CAN ADMIT] - KEENAN DAVILA [OUTSIDE PHYSICIAN] -
[2018-12-18 14:40] VITALS: BP 116/73; TEMP 98.5
== END 2018-12-18 12:43 | disposition home or self-care (01) | DRG 390 ==
LOC: ER 11:11 → ERHOLD 13:14 → 2ND 14:18 → OBSVTOIN 12-17 08:12
PROVIDERS: ADMIT Family Medicine; ATTEND Family Medicine
PROC: 0D9670Z Drainage of Stomach with Drainage Device, Via Natural or Artificial Opening (ICD-10-PCS; principal; 2018-12-16)
DX: K56.50 Intestinal adhesions [bands], unspecified as to partial versus complete obstruction (principal); N40.0 Benign prostatic hyperplasia without lower urinary tract symptoms; J41.0 Simple chronic bronchitis; K21.9 Gastro-esophageal reflux disease without esophagitis; E03.9 Hypothyroidism, unspecified; F17.210 Nicotine dependence, cigarettes, uncomplicated; G89.29 Other chronic pain; M54.9 Dorsalgia, unspecified
CPT/HCPCS: 36415; 71045; 74177; 80048; 80053; 80076; 81003; 83690; 83735; 84100; 85025; 96361; 96374; 96375; 99285; C9113; G0378; J2405; J7030; Q9967

== ENCOUNTER 2019-04-05 15:27 | Emergency (ER) | payer OTHER ==
--- NOTE | 2019-04-05 16:05 | EDPHYS ---
Physician Documentation [facility] Name: Chi Kelley Age: 49 yrs Sex: Male : 1970 Arrival Date: 04/05/2019 Time: 15:29 Bed 14 Private MD: ED Physician Jaime Benitez HPI: 04/05 15:55 This 49 yrs old Male presents to ER via Ambulatory with complaints of pm1 Toothache. 15:55 The patient presents with pain. The problem is located in the upper right first molar pm1 and upper left first molar. Onset: The symptoms/episode began/occurred 3 day(s) ago. Duration: The symptoms are chronic, are continuous. Modifying factors: The symptoms are alleviated by nothing, the symptoms are aggravated by nothing. Associated signs and symptoms: Pertinent negatives: fever, inability to eat, nausea, vomiting. Severity of symptoms: in the emergency department the symptoms are actually worse. The patient has experienced similar episodes in the past, chronically. The patient has not recently seen a physician. Historical: - Allergies: 15:36 No Known Allergies; aj - Home Meds: 15:58 Trazodone Oral nightly [Active]; levothyroxine oral once daily [Active]; Flexeril 10 mg ls4 Oral tab 1 tab daily [Active]; Albuterol Inhl 3 times per day [Active]; - Immunization history:: Adult Immunizations unknown. - Social history:: Smoking status: Patient/guardian denies using tobacco. - Ebola Screening: : Patient negative for fever greater than or equal to 101.5 degrees Fahrenheit, and additional compatible Ebola Virus Disease symptoms Patient denies exposure to infectious person Patient denies travel to an Ebola-affected area in the 21 days before illness onset No symptoms or risks identified at this time. ROS: 15:55 Constitutional: Negative for fever, chills, and weight loss, Eyes: Negative for injury, pm1 pain, redness, and discharge, Neck: Negative for injury, pain, and swelling, Cardiovascular: Negative for chest pain, palpitations, and edema, Respiratory: Negative for shortness of breath, cough, wheezing, and pleuritic chest pain, Abdomen/GI: Negative for abdominal pain, nausea, vomiting, diarrhea, and constipation, Back: Negative for injury and pain, : Negative for injury, bleeding, discharge, and swelling. 15:55 MS/Extremity: Negative for injury and deformity, Skin: Negative for injury, rash, and discoloration, Neuro: Negative for headache, weakness, numbness, tingling, and seizure. 15:55 ENT: Positive for dental pain, Negative for drainage from ear(s), ear pain, rhinorrhea, sore throat. Exam: 15:55 Constitutional: This is a well developed, well nourished patient who is awake, alert, pm1 and in no acute distress. Head/Face: Normocephalic, atraumatic. Eyes: Pupils equal round and reactive to light, extra-ocular motions intact. Lids and lashes normal. Conjunctiva and sclera are non-icteric and not injected. Cornea within normal limits. Periorbital areas with no swelling, redness, or edema. 15:55 Neck: Trachea midline, no thyromegaly or masses palpated, and no cervical lymphadenopathy. Supple, full range of motion without nuchal rigidity, or vertebral point tenderness. No Meningismus. Chest/axilla: Normal chest wall appearance and motion. Nontender with no deformity. No lesions are appreciated. Cardiovascular: Regular rate and rhythm with a normal S1 and S2. No gallops, murmurs, or rubs. Normal PMI, no JVD. No pulse deficits. Respiratory: Lungs have equal breath sounds bilaterally, clear to auscultation and percussion. No rales, rhonchi or wheezes noted. No increased work of breathing, no retractions or nasal flaring. Abdomen/GI: Soft, non-tender, with normal bowel sounds. No distension or tympany. No guarding or rebound. No evidence of tenderness throughout. Back: No spinal tenderness. No costovertebral tenderness. Full range of motion. Skin: Warm, dry with normal turgor. Normal color with no rashes, no lesions, and no evidence of cellulitis. MS/ Extremity: Pulses equal, no cyanosis. Neurovascular intact. Full, normal range of motion. 15:55 ENT: External ear(s): are unremarkable, Ear canal(s): are normal, TM's: are normal, Nose: is normal, Mouth: is normal, no abscess, no drooling, (-) tongue elevation (-) trismus no ulcerations, Dental exam: dental caries, specifically in the upper right first molar (#3) and upper left first molar (#14), missing teeth, diffusely. 15:55 Neuro: Orientation: is normal, Motor: is normal. Vital Signs: 15:36 BP 118 / 67; Pulse 84; Resp 19; Temp 97.3; Pulse Ox 99% on R/A; Weight 78.02 kg; Height aj 5 ft. 9 in. (175.26 cm); 15:36 Body Mass Index 25.40 (78.02 kg, 175.26 cm) MDM: 16:01 Patient medically screened. pm1 16:02 Data reviewed: vital signs. Data interpreted: Pulse oximetry: on room air is 99 %. pm1 Interpretation: normal. Counseling: I had a detailed discussion with the patient and/or guardian regarding: the historical points, exam findings, and any diagnostic results supporting the discharge/admit diagnosis, the need for outpatient follow up, for definitive care, a dentist, to return to the emergency department if symptoms worsen or persist or if there are any questions or concerns that arise at home. Administered Medications: 16:14 Drug: [place] 5 mg-325 mg 1 tabs Route: PO; ls4 16:26 Follow up: Response: No adverse reaction ls4 Disposition: 04/06 07:20 Co-signature as Attending Physician, Jaime Benitez MD I agree with the assessment and kdr plan of care. Disposition: 04/05/19 16:05 Discharged to Home. Impression: Dental caries. - Condition is Stable. - Discharge Instructions: Dental Pain. - Prescriptions for Augmentin 875- 125 mg Oral Tablet - take 1 tablet by ORAL route every 12 hours for 10 days; 20 tablet. Tylenol- Codeine #3 300-30 mg Oral Tablet - take 2 tablets by ORAL route every 6 hours As needed; 20 tablet. - Medication Reconciliation Form, Thank You Letter, Antibiotic Education, Prescription Opioid Use form. - Follow up: Emergency Department; When: As needed; Reason: Worsening of condition. Follow up: Private Physician; When: 2 - 3 days; Reason: Recheck today's complaints, Continuance of care, Re-evaluation by your physician. - Problem is new. - Symptoms have improved. Signatures: Linda Nagy RN RN aj Rittger, Kevin, MD MD kdr Marinas, Patrick, NP INSURANCE CLAIMS ASSISTANT pm1 Frank, Irene, RN RN ls4 Corrections: (The following items were deleted from the chart) 04/05 16:27 16:05 04/05/2019 16:05 Discharged to Home. Impression: Dental caries. Condition is ls4 Stable. Forms are Medication Reconciliation Form, Thank You Letter, Antibiotic Education, Prescription Opioid Use. Follow up: Emergency Department; When: As needed; Reason: Worsening of condition. Follow up: Private Physician; When: 2 - 3 days; Reason: Recheck today's complaints, Continuance of care, Re-evaluation by your physician. Problem is new. Symptoms have improved. pm1
--- NOTE | 2019-04-05 16:05 | ER ---
Nurse's Notes [facility] Name: Chi Kelley Age: 49 yrs Sex: Male : 1970 Arrival Date: 04/05/2019 Time: 15:29 Bed 14 Private MD: Diagnosis: Dental caries Presentation: 04/05 15:35 Presenting complaint: Patient states: Left upper tooth pain for days. Transition of aj care: patient was not received from another setting of care. Onset of symptoms was April 03, 2019. Care prior to arrival: None. 15:35 Method Of Arrival: Ambulatory 15:35 Acuity: DORIAN 5 15:56 Risk Assessment: Do you want to hurt yourself or someone else? Patient reports no ls4 desire to harm self or others. Initial Sepsis Screen: Does the patient meet any 2 criteria? No. Patient's initial sepsis screen is negative. Does the patient have a suspected source of infection? No. Patient's initial sepsis screen is negative. Triage Assessment: 15:36 General: Appears in no apparent distress. comfortable, Behavior is calm, cooperative, aj appropriate for age. Pain: Complains of pain in upper left first molar. EENT: Poor dentition noted. Reports pain in upper left first molar. Respiratory: Airway is patent Respiratory effort is even, unlabored, Respiratory pattern is regular, symmetrical. Derm: Skin is intact, is healthy with good turgor, Skin is pink, warm \T\ dry. normal. Historical: - Allergies: 15:36 No Known Allergies; aj - Home Meds: 15:58 Trazodone Oral nightly [Active]; levothyroxine oral once daily [Active]; Flexeril 10 mg ls4 Oral tab 1 tab daily [Active]; Albuterol Inhl 3 times per day [Active]; - Immunization history:: Adult Immunizations unknown. - Social history:: Smoking status: Patient/guardian denies using tobacco. - Ebola Screening: : Patient negative for fever greater than or equal to 101.5 degrees Fahrenheit, and additional compatible Ebola Virus Disease symptoms Patient denies exposure to infectious person Patient denies travel to an Ebola-affected area in the 21 days before illness onset No symptoms or risks identified at this time. Screenin:53 Abuse screen: Denies threats or abuse. Denies injuries from another. Nutritional ls4 screening: No deficits noted. Tuberculosis screening: No symptoms or risk factors identified. Fall Risk None identified. Assessment: 15:53 General: Appears in no apparent distress. uncomfortable. Neuro: No deficits noted. ls4 Cardiovascular: No deficits noted. Respiratory: No deficits noted. Musculoskeletal: No deficits noted. Vital Signs: 15:36 BP 118 / 67; Pulse 84; Resp 19; Temp 97.3; Pulse Ox 99% on R/A; Weight 78.02 kg; Height aj 5 ft. 9 in. (175.26 cm); 15:36 Body Mass Index 25.40 (78.02 kg, 175.26 cm) aj ED Course: 15:29 Patient arrived in ED. as 15:36 Triage completed. aj 15:36 Arm band placed on right wrist. Patient placed in an exam room. aj 15:50 Luis Angel Suazo NP is PHCP. pm1 15:50 Jaime Benitez MD is Attending Physician. pm1 15:52 Irene Marie RN is Primary Nurse. ls4 15:53 Patient has correct armband on for positive identification. Bed in low position. Call ls4 light in reach. Side rails up X 1. 15:53 No provider procedures requiring assistance completed. Patient did not have IV access ls4 during this emergency room visit. Administered Medications: 16:14 Drug: [place] 5 mg-325 mg 1 tabs Route: PO; ls4 16:26 Follow up: Response: No adverse reaction ls4 Outcome: 16:05 Discharge ordered by . pm1 16:26 Discharged to home ambulatory. ls4 16:26 Condition: good 16:26 Discharge instructions given to patient, Instructed on discharge instructions, follow up and referral plans. medication usage, safety practices, Demonstrated understanding of instructions, follow-up care, medications, Prescriptions given X 2. 16:27 Patient left the ED. ls4 Signatures: Linda Nagy RN RN Waleska Krishnamurthy Patrick, NP NEGATIVE CLEANER pm1 Irene Marie RN RN ls4
[2019-04-05] MEDS ORDERED: HYDROCODONE/APAP 5/325 MG TAB ONE (16:35)
[2019-04-05 18:15] VITALS: BP 118/67; TEMP 97.3; O2SAT 99
== END 2019-04-05 16:27 | disposition home or self-care (01) ==
LOC: ER 15:27
DX: K02.9 Dental caries, unspecified (principal)
CPT/HCPCS: 99283

== ENCOUNTER 2019-05-16 22:51 | Emergency (ER) | payer OTHER ==
--- NOTE | 2019-05-16 23:21 | EDPHYS ---
Physician Documentation [facility] Name: Chi Kelley Age: 49 yrs Sex: Male : 1970 Arrival Date: 05/16/2019 Time: 22:58 Bed 20 Private MD: ED Physician Eugene Qureshi HPI: 05/16 23:44 This 49 yrs old Male presents to ER via Ambulatory with complaints of kb Toothache. 23:45 The patient presents with pain, redness, swelling. The problem is located in the upper kb right first bicuspid (#5). Onset: The symptoms/episode began/occurred months ago. Duration: The symptoms are continuous. Modifying factors: The symptoms are alleviated by nothing, the symptoms are aggravated by nothing. Associated signs and symptoms: Pertinent positives: pain, redness in area, swelling. Severity of symptoms: At their worst the symptoms were moderate, in the emergency department the symptoms are unchanged. The patient has not experienced similar symptoms in the past. The patient has not recently seen a physician. Historical: - Allergies: 23:18 No Known Allergies; mg2 - Home Meds: 23:18 Trazodone Oral nightly [Active]; levothyroxine oral once daily [Active]; Flexeril 10 mg mg2 Oral tab 1 tab daily [Active]; Albuterol Inhl 3 times per day [Active]; - PMHx: 23:18 Hypothyroidism; COPD; chronic back pain; mg2 - Immunization history:: Adult Immunizations up to date. - Social history:: Smoking status: Patient uses tobacco products. - Ebola Screening: : No symptoms or risks identified at this time. ROS: 23:44 Constitutional: Negative for fever, chills, and weight loss, Neck: Negative for injury, kb pain, and swelling, Cardiovascular: Negative for chest pain, palpitations, and edema, Respiratory: Negative for shortness of breath, cough, wheezing, and pleuritic chest pain, Abdomen/GI: Negative for abdominal pain, nausea, vomiting, diarrhea, and constipation, MS/Extremity: Negative for injury and deformity, Skin: Negative for injury, rash, and discoloration, Neuro: Negative for headache, weakness, numbness, tingling, and seizure. 23:44 ENT: Positive for dental pain. Exam: 23:39 Constitutional: This is a well developed, well nourished patient who is awake, alert, kb and in no acute distress. Head/Face: Normocephalic, atraumatic. Neck: Trachea midline, no thyromegaly or masses palpated, and no cervical lymphadenopathy. Supple, full range of motion without nuchal rigidity, or vertebral point tenderness. No Meningismus. Chest/axilla: Normal chest wall appearance and motion. Nontender with no deformity. No lesions are appreciated. Cardiovascular: Regular rate and rhythm with a normal S1 and S2. No gallops, murmurs, or rubs. Normal PMI, no JVD. No pulse deficits. Respiratory: Lungs have equal breath sounds bilaterally, clear to auscultation and percussion. No rales, rhonchi or wheezes noted. No increased work of breathing, no retractions or nasal flaring. Abdomen/GI: Soft, non-tender, with normal bowel sounds. No distension or tympany. No guarding or rebound. No evidence of tenderness throughout. Skin: Warm, dry with normal turgor. Normal color with no rashes, no lesions, and no evidence of cellulitis. MS/ Extremity: Pulses equal, no cyanosis. Neurovascular intact. Full, normal range of motion. Neuro: Awake and alert, GCS 15, oriented to person, place, time, and situation. Cranial nerves II-XII grossly intact. Motor strength 5/5 in all extremities. Sensory grossly intact. Cerebellar exam normal. Normal gait. 23:39 ENT: Dental exam: abscess, missing teeth, diffusely, pain, that is moderate, specifically in the upper right first bicuspid (#5). Vital Signs: 23:17 BP 122 / 71; Pulse 83; Resp 18; Temp 98.5; Pulse Ox 97% on R/A; Weight 78.02 kg; Height mg2 6 ft. (182.88 cm); Pain 10/10; 23:35 BP 125 / 82; Pulse 80; Resp 17; Pulse Ox 99% on R/A; rr5 23:17 Body Mass Index 23.33 (78.02 kg, 182.88 cm) mg2 MDM: 23:14 Patient medically screened. kb 23:20 Data reviewed: vital signs, nurses notes. Data interpreted: Pulse oximetry: on room air kb is 97 %. Interpretation: normal. Counseling: I had a detailed discussion with the patient and/or guardian regarding: the historical points, exam findings, and any diagnostic results supporting the discharge/admit diagnosis, the need for outpatient follow up, a dentist, to return to the emergency department if symptoms worsen or persist or if there are any questions or concerns that arise at home. Administered Medications: 23:24 Drug: [place] 5 mg-325 mg 1 tabs Route: PO; rr5 23:36 Follow up: Response: Medication administered at discharge. rr5 23:24 Drug: Augmentin 875 mg Route: PO; rr5 23:36 Follow up: Response: Medication administered at discharge. rr5 Disposition: 05/16/19 23:21 Discharged to Home. Impression: Periapical abscess without sinus. - Condition is Stable. - Discharge Instructions: Dental Pain, [id number], Dental Abscess, [id number]. - Prescriptions for Augmentin 875- 125 mg Oral Tablet - take 1 tablet by ORAL route every 12 hours for 10 days; 20 tablet. Diclofenac Sodium 75 mg Oral Tablet, Delayed Release (E.C.) - take 1 tablet by ORAL route 2 times per day As needed; 30 tablet. - Medication Reconciliation Form, Thank You Letter, Antibiotic Education, Prescription Opioid Use form. - Follow up: Emergency Department; When: As needed; Reason: Worsening of condition. Follow up: Private Physician; When: 2 - 3 days; Reason: Recheck today's complaints, Continuance of care, Re-evaluation by your physician. Signatures: Erika Hackett, CHIEF SOLUTION ARCHITECT-C CHIEF SOLUTION ARCHITECT-CkShun Wagner RN RN [facility] Magen Corbin RN RN rr5 Corrections: (The following items were deleted from the chart) 23:37 23:21 05/16/2019 23:21 Discharged to Home. Impression: Periapical abscess without rr5 sinus. Condition is Stable. Forms are Medication Reconciliation Form, Thank You Letter, Antibiotic Education, Prescription Opioid Use. Follow up: Emergency Department; When: As needed; Reason: Worsening of condition. Follow up: Private Physician; When: 2 - 3 days; Reason: Recheck today's complaints, Continuance of care, Re-evaluation by your physician. kb
--- NOTE | 2019-05-16 23:21 | ER ---
Nurse's Notes [facility] Name: Chi Kelley Age: 49 yrs Sex: Male : 1970 Arrival Date: 05/16/2019 Time: 22:58 Bed 20 Private MD: Diagnosis: Periapical abscess without sinus Presentation: 05/16 23:14 Presenting complaint: Patient states: Pt reports toothache to right side of mouth that mg2 has been coming and going for a few months. Pt reports tonight the pain got worse and radiated to his sabianism. Transition of care: patient was not received from another setting of care. Onset of symptoms was May 16, 2019. Risk Assessment: Do you want to hurt yourself or someone else? Patient reports no desire to harm self or others. Initial Sepsis Screen: Does the patient meet any 2 criteria? No. Patient's initial sepsis screen is negative. Does the patient have a suspected source of infection? No. Patient's initial sepsis screen is negative. Care prior to arrival: None. 23:14 Method Of Arrival: Ambulatory mg2 23:14 Acuity: DORIAN 5 mg2 Triage Assessment: 23:19 General: Appears in no apparent distress. Behavior is calm, cooperative, appropriate mg2 for age. Pain: Complains of pain in right side of mouth. EENT: Reports pain in right cheek, mouth and right sabianism. Neuro: Level of Consciousness is awake, alert, obeys commands, Oriented to person, place, time, situation. Respiratory: Airway is patent Respiratory effort is even, unlabored, Respiratory pattern is regular, symmetrical. Derm: Skin is pink, warm \T\ dry. Historical: - Allergies: 23:18 No Known Allergies; mg2 - Home Meds: 23:18 Trazodone Oral nightly [Active]; levothyroxine oral once daily [Active]; Flexeril 10 mg mg2 Oral tab 1 tab daily [Active]; Albuterol Inhl 3 times per day [Active]; - PMHx: 23:18 Hypothyroidism; COPD; chronic back pain; mg2 - Immunization history:: Adult Immunizations up to date. - Social history:: Smoking status: Patient uses tobacco products. - Ebola Screening: : No symptoms or risks identified at this time. Screenin:18 Abuse screen: Denies threats or abuse. Nutritional screening: No deficits noted. mg2 Tuberculosis screening: No symptoms or risk factors identified. Fall Risk None identified. Assessment: 23:15 General: Appears in no apparent distress. uncomfortable, Behavior is calm, cooperative, rr5 appropriate for age. 23:15 Pain: Complains of pain in tooth right side Pain radiates to right cheek and sabianism rr5 Pain currently is 10 out of 10 on a pain scale. Quality of pain is described as aching, Pain began gradually, Is intermittent. Neuro: Level of Consciousness is awake, alert, obeys commands, Oriented to person, place, time, situation, Appropriate for age. Cardiovascular: Capillary refill < 3 seconds Patient's skin is warm and dry. Respiratory: Airway is patent Respiratory effort is even, unlabored, Respiratory pattern is regular, symmetrical. GI: No signs and/or symptoms were reported involving the gastrointestinal system. : No signs and/or symptoms were reported regarding the genitourinary system. EENT: Reports pain since right side toothache. Derm: Skin is intact, Skin temperature is warm. Musculoskeletal: Circulation, motion, and sensation intact. Capillary refill. 23:35 Reassessment: Patient appears in no apparent distress at this time. Patient is alert, rr5 oriented x 3, equal unlabored respirations, skin warm/dry/pink. discharge instruction given and explained without complaints made. Vital Signs: 23:17 BP 122 / 71; Pulse 83; Resp 18; Temp 98.5; Pulse Ox 97% on R/A; Weight 78.02 kg; Height mg2 6 ft. (182.88 cm); Pain 10/10; 23:35 BP 125 / 82; Pulse 80; Resp 17; Pulse Ox 99% on R/A; rr5 23:17 Body Mass Index 23.33 (78.02 kg, 182.88 cm) mg2 ED Course: 22:58 Patient arrived in ED. es 23:14 Erika Hackett FNP-C is [facility]. kb 23:14 Eugene Qureshi MD is Attending Physician. kb 23:16 Triage completed. mg2 23:16 Patient has correct armband on for positive identification. Bed in low position. Call mg2 light in reach. Side rails up X2. 23:17 Arm band placed on right wrist. Patient placed in an exam room, on a stretcher, on mg2 pulse oximetry. 23:32 Corbin, Magen, RN is Primary Nurse. rr5 23:36 No provider procedures requiring assistance completed. Patient did not have IV access rr5 during this emergency room visit. Administered Medications: 23:24 Drug: Street 5 mg-325 mg 1 tabs Route: PO; rr5 23:36 Follow up: Response: Medication administered at discharge. rr5 23:24 Drug: Augmentin 875 mg Route: PO; rr5 23:36 Follow up: Response: Medication administered at discharge. rr5 Outcome: 23:21 Discharge ordered by . jennifer 23:36 Discharged to home ambulatory. rr5 23:36 Condition: stable 23:36 Discharge instructions given to patient, Instructed on discharge instructions, follow up and referral plans. medication usage, Demonstrated understanding of instructions, follow-up care, wound care, Prescriptions given X 2. 23:37 Patient left the ED. rr5 Signatures: Erika Hackett, RIGGER CHIEF-C RIGGER CHIEF-CkTanna Dumas Michele, RN RN mg2 Magen Corbin, MELINA RN rr5
[2019-05-16 23:41] VITALS: TEMP 98.5
[2019-05-16 23:42] VITALS: BP 125/82; O2SAT 99
[2019-05-16] MEDS ORDERED: HYDROCODONE/APAP 5/325 MG TAB ONE (23:43)
[2019-05-16] MEDS ORDERED: AMOX/K CLAV 875 MG TAB ONE (23:44)
[2019-05-17] MEDS ORDERED: MORPHINE 4 MG/ML SYR ONE (00:03)
== END 2019-05-16 23:37 | disposition home or self-care (01) ==
LOC: ER 22:51
DX: K04.7 Periapical abscess without sinus (principal); E03.9 Hypothyroidism, unspecified; J44.9 Chronic obstructive pulmonary disease, unspecified; Z72.0 Tobacco use

== ENCOUNTER 2019-07-20 20:38 | Emergency (ER) | payer OTHER ==
[2019-07-20 21:47] LABS: Absolute Lymphocytes (CBC) 3.2 K/uL (0.7-4.9); Basophils % 0.2 % (0-1.3); Hematocrit 37.5 % (39.6-49.0); MPV 9.5 fL (7.6-11.3); RBC Red Blood Cell Count 4.04 M/uL (4.33-5.43)
[2019-07-20 22:08] LABS: ALT/SGPT 34 U/L (12-78); AST/SGOT 23 U/L (15-37); Albumin 3.8 g/dL (3.4-5.0); Alkaline Phosphatase 64 U/L (45-117); BUN Blood Urea Nitrogen 15 mg/dL (7-18); Bicarbonate 26 mmol/L (21-32); Bilirubin Total 0.3 mg/dL (0.2-1.0); Glucose Level 132 mg/dL (74-106); NT PRO-BNP 44 pg/mL (<125); Potassium 3.8 mmol/L (3.5-5.1); Protein, Total 6.6 g/dL (6.4-8.2); Sodium Level 143 mmol/L (136-145); Troponin (Emerg Dept Use Only) < 0.02 ng/mL (0.0-0.045)
--- NOTE | 2019-07-20 22:45 | ER ---
Nurse's Notes [facility] Name: Chi Kelley Age: 49 yrs Sex: Male : 1970 Arrival Date: 07/20/2019 Time: 20:42 Bed 19 Private MD: Diagnosis: Intercostal pain Presentation: 07/20 21:00 Presenting complaint: Patient states: I'm having right sided chest pain started 1 1/2 rr5 week ago can't lay on side and it hurts when coughing. no trauma, pain score 9/10. Transition of care: patient was not received from another setting of care. Onset of symptoms was June 2019. Risk Assessment: Do you want to hurt yourself or someone else? Patient reports no desire to harm self or others. Initial Sepsis Screen: Does the patient meet any 2 criteria? No. Patient's initial sepsis screen is negative. Does the patient have a suspected source of infection? No. Patient's initial sepsis screen is negative. Care prior to arrival: None. 21:00 Method Of Arrival: Ambulatory rr5 21:00 Acuity: DORIAN 3 rr5 Historical: - Allergies: 21:00 No Known Allergies; rr5 - Home Meds: 21:00 Albuterol Inhl 3 times per day [Active]; Flexeril 10 mg Oral tab 1 tab daily [Active]; rr5 levothyroxine oral once daily [Active]; Trazodone Oral nightly [Active]; - PMHx: 21:00 chronic back pain; COPD; Hypothyroidism; rr5 - PSHx: 21:00 Cholecystectomy; Hernia repair; rr5 - Immunization history:: Adult Immunizations up to date. - Social history:: Smoking status: Patient uses tobacco products, 7 sticks per day, Patient/guardian denies using alcohol, street drugs. - Ebola Screening: : Patient negative for fever greater than or equal to 101.5 degrees Fahrenheit, and additional compatible Ebola Virus Disease symptoms Patient denies exposure to infectious person Patient denies travel to an Ebola-affected area in the 21 days before illness onset. Screenin:35 Abuse screen: Denies threats or abuse. Denies injuries from another. Nutritional rr5 screening: No deficits noted. Tuberculosis screening: No symptoms or risk factors identified. Fall Risk IV access (20 points). Total Brito Fall Scale indicates No Risk (0-24 pts). Assessment: 21:00 General: Appears in no apparent distress. comfortable, Behavior is calm, cooperative, rr5 appropriate for age. 21:00 Pain: Complains of pain in right chest Pain radiates to back Pain currently is 8 out of rr5 10 on a pain scale. Quality of pain is described as aching, Pain began gradually, Is intermittent. Neuro: Level of Consciousness is awake, alert, obeys commands, Oriented to person, place, time, situation, Appropriate for age. Cardiovascular: Reports chest pain, Capillary refill < 3 seconds Patient's skin is warm and dry. Respiratory: Airway is patent Respiratory effort is even, unlabored, Respiratory pattern is regular, symmetrical. GI: No signs and/or symptoms were reported involving the gastrointestinal system. : No signs and/or symptoms were reported regarding the genitourinary system. EENT: No signs and/or symptoms were reported regarding the EENT system. Derm: Skin is intact, Skin temperature is warm. Musculoskeletal: Circulation, motion, and sensation intact. Capillary refill < 3 seconds. 22:00 Reassessment: Patient appears in no apparent distress at this time. No changes from rr5 previously documented assessment. Patient is alert, oriented x 3, equal unlabored respirations, skin warm/dry/pink. 23:16 Reassessment: Patient appears in no apparent distress at this time. Patient is alert, rr5 oriented x 3, equal unlabored respirations, skin warm/dry/pink. discharge instruction given and explained without complaints made. verbalized understanding Patient states feeling better. Patient states symptoms have improved. Vital Signs: 21:00 BP 115 / 74; Pulse 86; Resp 17; Temp 98.5; Pulse Ox 98% ; Weight 82.1 kg; Height 5 ft. rr5 9 in. (175.26 cm); Pain 9/10; 22:00 BP 110 / 79; Pulse 79; Resp 19; Temp 98.4; Pulse Ox 99% on R/A; rr5 23:15 BP 101 / 67; Pulse 85; Resp 17; Temp 98.2; Pulse Ox 98% ; rr5 21:00 Body Mass Index 26.73 (82.10 kg, 175.26 cm) rr5 ED Course: 20:42 Patient arrived in ED. mr 20:51 Magen Corbin, RN is Primary Nurse. rr5 21:00 Arm band placed on left wrist. EKG completed in triage. Results shown to MD. rr5 21:00 Patient has correct armband on for positive identification. Placed in gown. Bed in low rr5 position. Call light in reach. suture winder hand on. Pulse ox on. NIBP on. 21:02 Triage completed. rr5 21:04 Chris Hsu MD is Attending Physician. ps1 21:34 Inserted saline lock: 20 gauge in right forearm, using aseptic technique. Blood rr5 collected. 22:46 CXR XRAY In Process Unspecified. EDMS 23:16 No provider procedures requiring assistance completed. IV discontinued, intact, rr5 bleeding controlled, No redness/swelling at site. Pressure dressing applied. Patient maintains SpO2 saturation greater than 95% on room air. Administered Medications: No medications were administered Outcome: 22:44 Discharge ordered by MD. ps1 23:17 Discharged to home ambulatory, with family. rr5 23:17 Condition: stable 23:17 Discharge instructions given to patient, Instructed on discharge instructions, follow up and referral plans. medication usage, Demonstrated understanding of instructions, follow-up care, medications, Prescriptions given X 2. 23:30 Patient left the ED. rr5 Signatures: Dispatcher [employer] [facility] Colleen Greer mr Chris Hsu MD MD ps1 Magen Corbin, RN RN rr5
--- NOTE | 2019-07-20 22:45 | EDPHYS ---
Physician Documentation [facility] Name: Chi Kelley Age: 49 yrs Sex: Male : 1970 Arrival Date: 07/20/2019 Time: 20:42 Bed 19 Private MD: ED Physician Chris Hsu HPI: 07/20 22:39 This 49 yrs old Male presents to ER via Ambulatory with complaints of Chest ps1 Pain. 22:39 Patient has reproducible chest pain localized in the inter-rib space of the right ribs ps1 for over a week and a half. patient states that the pain is atruamatic. Does not attest to exertional movements. He has a history of COPD and current smoker. Patient states the pain is worse with deep inspiration. Does not radiate. He denies fever. . Historical: - Allergies: 21:00 No Known Allergies; rr5 - Home Meds: 21:00 Albuterol Inhl 3 times per day [Active]; Flexeril 10 mg Oral tab 1 tab daily [Active]; rr5 levothyroxine oral once daily [Active]; Trazodone Oral nightly [Active]; - PMHx: 21:00 chronic back pain; COPD; Hypothyroidism; rr5 - PSHx: 21:00 Cholecystectomy; Hernia repair; rr5 - Immunization history:: Adult Immunizations up to date. - Social history:: Smoking status: Patient uses tobacco products, 7 sticks per day, Patient/guardian denies using alcohol, street drugs. - Ebola Screening: : Patient negative for fever greater than or equal to 101.5 degrees Fahrenheit, and additional compatible Ebola Virus Disease symptoms Patient denies exposure to infectious person Patient denies travel to an Ebola-affected area in the 21 days before illness onset. ROS: 22:39 Constitutional: Negative for fever, chills, and weight loss, Eyes: Negative for injury, ps1 pain, redness, and discharge, ENT: Negative for injury, pain, and discharge, Cardiovascular: Negative for chest pain, palpitations, and edema, Respiratory: Negative for shortness of breath, cough, wheezing, and pleuritic chest pain, Abdomen/GI: Negative for abdominal pain, nausea, vomiting, diarrhea, and constipation, Skin: Negative for injury, rash, and discoloration, Neuro: Negative for headache, weakness, numbness, tingling, and seizure, Psych: Negative for depression, anxiety, suicide ideation, homicidal ideation, and hallucinations. 22:39 MS/extremity: Positive for tenderness, of the right nipple and right breast. Exam: 22:39 Constitutional: This is a well developed, well nourished patient who is awake, alert, ps1 and in no acute distress. Head/Face: Normocephalic, atraumatic. Eyes: Pupils equal round and reactive to light, extra-ocular motions intact. Lids and lashes normal. Conjunctiva and sclera are non-icteric and not injected. Cardiovascular: Regular rate and rhythm. No gallops, murmurs, or rubs. Normal PMI, no JVD. No pulse deficits. Respiratory: Lungs have equal breath sounds bilaterally, clear to auscultation and percussion. No rales, rhonchi or wheezes noted. No increased work of breathing, no retractions or nasal flaring. Abdomen/GI: Soft, non-tender, with normal bowel sounds. No distension or tympany. No guarding or rebound. No evidence of tenderness throughout. Skin: Warm, dry with normal turgor. Normal color with no rashes, no lesions, and no evidence of cellulitis. MS/ Extremity: Pulses equal, no cyanosis. Neurovascular intact. Full, normal range of motion. Neuro: Awake and alert, GCS 15, oriented to person, place, time, and situation. Cranial nerves II-XII grossly intact. Sensory grossly intact. 22:39 Chest/axilla: Inspection: normal, Palpation: tenderness, that is moderate, of the right breast, that totally reproduces the patient's complaints. Vital Signs: 21:00 BP 115 / 74; Pulse 86; Resp 17; Temp 98.5; Pulse Ox 98% ; Weight 82.1 kg; Height 5 ft. rr5 9 in. (175.26 cm); Pain 9/10; 22:00 BP 110 / 79; Pulse 79; Resp 19; Temp 98.4; Pulse Ox 99% on R/A; rr5 23:15 BP 101 / 67; Pulse 85; Resp 17; Temp 98.2; Pulse Ox 98% ; rr5 21:00 Body Mass Index 26.73 (82.10 kg, 175.26 cm) rr5 MDM: 21:30 Patient medically screened. ps1 22:43 HEART Score: History: Slightly Suspicious (0), ECG: Normal (0), Age: > 45 and < 65 ps1 years (1), Risk Factors: 1 or 2 risk factors (1), Troponin: < or = 1 x Normal Limit (0), Total Score = 2. 22:43 Data reviewed: vital signs, nurses notes, lab test result(s), EKG, radiologic studies, ps1 and as a result, I will discharge patient. Counseling: I had a detailed discussion with the patient and/or guardian regarding: the historical points, exam findings, and any diagnostic results supporting the discharge/admit diagnosis, radiology results, the need for outpatient follow up, to return to the emergency department if symptoms worsen or persist or if there are any questions or concerns that arise at home, smoking cessation. 07/20 21:22 Order name: CBC with Diff; Complete Time: 22:10 ps1 07/20 21:22 Order name: CMP; Complete Time: 22:10 ps1 07/20 21:22 Order name: Troponin (emerg Dept Use Only); Complete Time: 22:10 ps1 07/20 21:22 Order name: BNP; Complete Time: 22:10 ps1 07/20 21:22 Order name: CXR XRAY ps1 EC:56 Rate is 83 beats/min. Rhythm is regular. QRS [place] is Normal. VT interval is normal. QRS ps1 interval is normal. QT interval is normal. No Q waves. T waves are Normal. No ST changes noted. Clinical impression: Normal ECG. Interpreted by me. Administered Medications: No medications were administered Disposition: 07/20/19 22:44 Discharged to Home. Impression: Intercostal pain. - Condition is Stable. - Prescriptions for Anaprox DS 550 mg Oral Tablet - take 1 tablet by ORAL route every 12 hours As needed; 20 tablet. Medrol (Dean) 4 mg Oral Tablets, Dose Pack - take 1 tablet by ORAL route as directed - follow package instructions; 1 packet. - Medication Reconciliation Form, Thank You Letter, Antibiotic Education, Prescription Opioid Use form. - Follow up: Emergency Department; When: As needed; Reason: Fever > 102 F, Trouble breathing, Worsening of condition. Follow up: Private Physician; When: As needed; Reason: Further diagnostic work-up, Recheck today's complaints, Continuance of care, Re-evaluation by your physician. - Problem is new. - Symptoms are unchanged. Signatures: Dispatcher [employer] EDChris Low MD MD ps1 Magen Corbin RN RN rr5 Corrections: (The following items were deleted from the chart) 23:30 22:44 07/20/2019 22:44 Discharged to Home. Impression: Intercostal pain. Condition is rr5 Stable. Forms are Medication Reconciliation Form, Thank You Letter, Antibiotic Education, Prescription Opioid Use. Follow up: Emergency Department; When: As needed; Reason: Fever > 102 F, Trouble breathing, Worsening of condition. Follow up: Private Physician; When: As needed; Reason: Further diagnostic work-up, Recheck today's complaints, Continuance of care, Re-evaluation by your physician. Problem is new. Symptoms are unchanged. ps1
[2019-07-21 00:58] VITALS: BP 101/67; TEMP 98.2; O2SAT 98
--- NOTE | 2019-07-22 04:44 | EKG ---
Test Date: 2019-07-20 Test Time: 20:56:56 Rn Manager: SHASHANK MEASUREMENT RESULTS: Intervals: Rate: 83 [place]: 162 QRSD: 76 QT: 336 QTc: 394 [place]: P: 61 [place]: 162 QRS: 43 T: 44 INTERPRETIVE STATEMENTS: Normal sinus rhythm Normal ECG Compared to ECG 08/18/2018 14:40:33 No significant changes Electronically Signed On 07-22-19 04:44:30 CDT by Parveen Connor
--- NOTE | 2019-07-22 15:19 | RAD REPORT ---
EXAM DESCRIPTION: Sylwia Single View07/21/2019 7:04 pm CLINICAL HISTORY: Chest pain COMPARISON: December 2018 FINDINGS: The lungs appear clear of acute infiltrate. The heart is normal size IMPRESSION: No acute abnormalities displayed
== END 2019-07-20 23:30 | disposition home or self-care (01) ==
LOC: ER 20:38
DX: R07.82 Intercostal pain (principal); J44.9 Chronic obstructive pulmonary disease, unspecified; E03.9 Hypothyroidism, unspecified; Z72.0 Tobacco use
CPT/HCPCS: 36415; 71045; 80053; 83880; 84484; 85025; 93005; 99285

== ENCOUNTER 2019-09-22 13:01 | Emergency (ER) | payer OTHER ==
[2019-09-22] MEDS ORDERED: HYDROCODONE/APAP 10/325 TAB ONE (14:03)
--- NOTE | 2019-09-22 14:54 | EDPHYS ---
Physician Documentation [facility] Name: Chi Kelley Age: 49 yrs Sex: Male : 1970 Arrival Date: 09/22/2019 Time: 13:04 Bed 30 Private MD: ED Physician Jaime Benitez HPI: 09/22 14:50 This 49 yrs old Male presents to ER via Ambulatory with complaints of Back la1 Pain. 14:50 The patient presents with pain that is acute, with no known mechanism of injury. The la1 symptoms are located in the low back. Onset: The symptoms/episode began/occurred 3 day(s) ago. The pain radiates to the right leg. Associated signs and symptoms: Pertinent negatives: headache, hematuria, nausea, urinary retention, weakness. The problem was sustained from unknown cause. Modifying factors: The patient symptoms are alleviated by nothing, the patient symptoms are aggravated by any movement, bending. Severity of symptoms: At their worst the symptoms were moderate. The patient has not experienced similar symptoms in the past. Historical: - Allergies: 13:16 No Known Allergies; iw - Home Meds: 13:16 Albuterol Inhl 3 times per day [Active]; Trazodone Oral nightly [Active]; levothyroxine iw oral once daily [Active]; Flexeril 10 mg Oral tab 1 tab daily [Active]; - PMHx: 13:16 chronic back pain; COPD; Hypothyroidism; iw - PSHx: 13:16 Cholecystectomy; Hernia repair; iw - Immunization history:: Adult Immunizations up to date. - Social history:: Smoking status: Smoking status: Patient uses tobacco products, denies chronic smoking, but will smoke occasionally. - Ebola Screening: : Patient negative for fever greater than or equal to 101.5 degrees Fahrenheit, and additional compatible Ebola Virus Disease symptoms Patient denies exposure to infectious person Patient denies travel to an Ebola-affected area in the 21 days before illness onset No symptoms or risks identified at this time. ROS: 14:51 Constitutional: Negative for fever, chills, and weight loss, Eyes: Negative for injury, la1 pain, redness, and discharge, ENT: Negative for injury, pain, and discharge, Neck: Negative for injury, pain, and swelling, Cardiovascular: Negative for chest pain, palpitations, and edema, Respiratory: Negative for shortness of breath, cough, wheezing, and pleuritic chest pain, Abdomen/GI: Negative for abdominal pain, nausea, vomiting, diarrhea, and constipation, Back: + for back pain' MS/Extremity: + for numbess/tingling to right leg Exam: 14:52 Constitutional: This is a well developed, well nourished patient who is awake, alert, la1 and in no acute distress. Head/Face: Normocephalic, atraumatic. Eyes: Pupils equal round and reactive to light, extra-ocular motions intact. Lids and lashes normal. Conjunctiva and sclera are non-icteric and not injected. Cornea within normal limits. Periorbital areas with no swelling, redness, or edema. ENT: Mucous membranes moist. Neck: No Meningismus. Chest/axilla: Normal chest wall appearance and motion. Nontender with no deformity. No lesions are appreciated. Cardiovascular: Regular rate and rhythm with a normal S1 and S2. No gallops, murmurs, or rubs. Normal PMI, no JVD. No pulse deficits. Respiratory: No increased work of breathing, no retractions or nasal flaring. Abdomen/GI: Soft, non-tender, with normal bowel sounds. No distension . No guarding or rebound. No evidence of tenderness throughout. Back: No spinal tenderness. No costovertebral tenderness. Full range of motion. 14:55 Neuro: Orientation: is normal, Mentation: is normal, Memory: is normal, Cranial nerves: la1 CN I not tested, CN II- XII are normal as tested, Cerebellar function: is grossly normal, Motor: is normal. Vital Signs: 13:16 BP 131 / 84; Pulse 91; Resp 16; Temp 98.0; Pulse Ox 97% on R/A; Weight 81.65 kg; Height iw 5 ft. 9 in. (175.26 cm); Pain 10/10; 13:16 Body Mass Index 26.58 (81.65 kg, 175.26 cm) iw MDM: 13:31 Patient medically screened. la1 14:52 Data reviewed: vital signs, nurses notes. Counseling: I had a detailed discussion with la1 the patient and/or guardian regarding: the historical points, exam findings, and any diagnostic results supporting the discharge/admit diagnosis, the need for outpatient follow up, a family practitioner, a neurosurgeon. ED course: PT ambulatory, denies urinary retention, sexual dysfunction, or saddle anesthesia. . 09/22 14:33 Order name: Urine Dipstick--Ancillary (enter results) eb 09/22 14:24 Order name: Urine Dipstick-Ancillary (obtain specimen); Complete Time: 14:37 lt1 Administered Medications: 14:04 Drug: [place] 10 mg-325 mg 1 tabs Route: PO; sg Disposition: 16:49 Co-signature as Attending Physician, Jaime Benitez MD I agree with the assessment and kdr plan of care. Disposition: 09/22/19 14:54 Discharged to Home. Impression: Low back pain, Paresthesia of skin. - Condition is Stable. - Discharge Instructions: Back Pain, Adult, Paresthesia, Back Pain, Adult, [id number], Back Exercises, [id number]. - Prescriptions for Tylenol 325 mg Oral Tablet - take 3 tablet by ORAL route every 6 hours as needed; 1 bottle. - Medication Reconciliation Form, Thank You Letter form. - Follow up: Private Physician; When: 2 - 3 days; Reason: Recheck today's complaints, Re-evaluation by your physician. Follow up: Emergency Department; When: As needed; Reason: Worsening of condition. - Notes: continue taking your flexeril as prescribed Signatures: Dispatcher [employer] EDMS Sagar Hernández RN RN sg Rittger, Kevin, MD MD [facility] Joann Moreau RN RN iw Sujata, Beau, GIS CONSULTANT-C GIS CONSULTANT-Cla1 Bridgett Don lt1 Corrections: (The following items were deleted from the chart) 15:03 14:54 09/22/2019 14:54 Discharged to Home. Impression: Low back pain; Paresthesia of iw skin. Condition is Stable. Forms are Medication Reconciliation Form, Thank You Letter, Antibiotic Education, Prescription Opioid Use. Follow up: Private Physician; When: 2 - 3 days; Reason: Recheck today's complaints, Re-evaluation by your physician. Follow up: Emergency Department; When: As needed; Reason: Worsening of condition. la1
--- NOTE | 2019-09-22 14:54 | ER ---
Nurse's Notes [facility] Name: Chi Kelley Age: 49 yrs Sex: Male : 1970 Arrival Date: 09/22/2019 Time: 13:04 Bed 30 Private MD: Diagnosis: Low back pain;Paresthesia of skin Presentation: 09/22 13:14 Presenting complaint: Patient states: right low back pain radiating to right leg for a iw few days. Transition of care: patient was not received from another setting of care. Onset of symptoms was September 19, 2019. Risk Assessment: Do you want to hurt yourself or someone else? Patient reports no desire to harm self or others. Initial Sepsis Screen: Does the patient meet any 2 criteria? No. Patient's initial sepsis screen is negative. Does the patient have a suspected source of infection? No. Patient's initial sepsis screen is negative. Care prior to arrival: Medication(s) given: Motrin. 13:14 Method Of Arrival: Ambulatory iw 13:14 Acuity: DORIAN 4 iw Historical: - Allergies: 13:16 No Known Allergies; iw - Home Meds: 13:16 Albuterol Inhl 3 times per day [Active]; Trazodone Oral nightly [Active]; levothyroxine iw oral once daily [Active]; Flexeril 10 mg Oral tab 1 tab daily [Active]; - PMHx: 13:16 chronic back pain; COPD; Hypothyroidism; iw - PSHx: 13:16 Cholecystectomy; Hernia repair; iw - Immunization history:: Adult Immunizations up to date. - Social history:: Smoking status: Smoking status: Patient uses tobacco products, denies chronic smoking, but will smoke occasionally. - Ebola Screening: : Patient negative for fever greater than or equal to 101.5 degrees Fahrenheit, and additional compatible Ebola Virus Disease symptoms Patient denies exposure to infectious person Patient denies travel to an Ebola-affected area in the 21 days before illness onset No symptoms or risks identified at this time. Screenin:30 Abuse screen: Denies threats or abuse. Denies injuries from another. Nutritional sg screening: No deficits noted. Tuberculosis screening: No symptoms or risk factors identified. Never had TB. Fall Risk None identified. Assessment: 13:30 General: Appears in no apparent distress. comfortable, well groomed, well developed, sg well nourished, Behavior is calm, cooperative, appropriate for age. Pain: Complains of pain in back Quality of pain is described as aching. Neuro: Level of Consciousness is awake, alert, obeys commands, Oriented to person, place, time, Superintendent Operating are equal bilaterally Moves all extremities. Full function Speech is normal, Facial symmetry appears normal. Cardiovascular: Heart tones S1 S2 present Chest pain is denied. Respiratory: Airway is patent Respiratory effort is even, unlabored, Respiratory pattern is regular, symmetrical. GI: Abdomen is round non-distended, Reports normal bowel habits, tolerance of fluids, tolerance of food. : No signs and/or symptoms were reported regarding the genitourinary system. EENT: No signs and/or symptoms were reported regarding the EENT system. Derm: Skin is pink, warm \T\ dry. Musculoskeletal: Circulation, motion, and sensation intact. Range of motion: intact in all extremities. Vital Signs: 13:16 BP 131 / 84; Pulse 91; Resp 16; Temp 98.0; Pulse Ox 97% on R/A; Weight 81.65 kg; Height iw 5 ft. 9 in. (175.26 cm); Pain 10/10; 13:16 Body Mass Index 26.58 (81.65 kg, 175.26 cm) iw ED Course: 13:04 Patient arrived in ED. mr 13:15 Triage completed. iw 13:30 Arm band placed on. sg 13:31 Beau Ernst FNP-C [facility]. la1 13:31 Jaime Benitez MD is Attending Physician. la1 13:41 Sagar Hernández, MELINA is Primary Nurse. sg 14:05 No provider procedures requiring assistance completed. sg 14:37 Urine collected: clean catch specimen, clear, teri colored. sg 14:37 Patient has correct armband on for positive identification. Bed in low position. Call sg light in reach. Side rails up X2. Pulse ox on. NIBP on. 15:02 Patient did not have IV access during this emergency room visit. iw Administered Medications: 14:04 Drug: [place] 10 mg-325 mg 1 tabs Route: PO; sg Outcome: 14:54 Discharge ordered by . la1 15:02 Discharged to home ambulatory, with family. iw 15:02 Condition: good 15:02 Discharge instructions given to patient, family, Instructed on discharge instructions, follow up and referral plans. medication usage, Demonstrated understanding of instructions, follow-up care, medications, Prescriptions given X 1. 15:03 Patient left the ED. iw Signatures: Sagar Hernández RN Colleen Cormier Irene, RN RN iw Attema, Lee, CLIMATOLOGIST-C CLIMATOLOGIST-Cla1
[2019-09-22 15:24] LABS: Urine Blood NEGATIVE (NEG); Urine Glucose NEGATIVE (NEG); Urine Protein 1+ (NEG)
[2019-09-22 17:19] VITALS: BP 131/84; TEMP 98; O2SAT 97
== END 2019-09-22 15:03 | disposition home or self-care (01) ==
LOC: ER 13:01
DX: R20.2 Paresthesia of skin (principal); E03.9 Hypothyroidism, unspecified; J44.9 Chronic obstructive pulmonary disease, unspecified; Z72.0 Tobacco use
CPT/HCPCS: 81003; 99284

== ENCOUNTER 2020-06-18 18:48 | Emergency (ER) | payer OTHER ==
[2020-06-18 19:43] LABS: Absolute Lymphocytes (CBC) 1.5 K/uL (0.7-4.9); Basophils % 0.8 % (0-1.3); Hematocrit 40.5 % (39.6-49.0); MPV 10.1 fL (7.6-11.3); RBC Red Blood Cell Count 4.41 M/uL (4.33-5.43)
[2020-06-18 19:49] LABS: Barbiturates NEGATIVE (NEGATIVE); Benzodiazepines NEGATIVE (NEGATIVE); Cocaine NEGATIVE (NEGATIVE); METHAMPHETAM NEGATIVE (NEGATIVE); Methadone NEGATIVE (NEGATIVE); Opiates NEGATIVE (NEGATIVE); Phencyclidine NEGATIVE (NEGATIVE); THC Cannibis NEGATIVE (NEGATIVE)
[2020-06-18 19:50] LABS: Protime INR 0.97
[2020-06-18 19:59] LABS: Urine Blood NEGATIVE (NEG); Urine Glucose NEGATIVE (NEG); Urine Protein 2+ (NEG); Urine Specific Gravity >1.030 (1.005-1.030); Urine pH 5.5 (5.0-7.0)
[2020-06-18] MEDS ORDERED: NA CHLORIDE 0.9% 1,000 ML ONE ×2 (20:04→20:59)
[2020-06-18 20:09] LABS: ALT/SGPT 51 U/L (12-78); AST/SGOT 29 U/L (15-37); Albumin 3.9 g/dL (3.4-5.0); Alkaline Phosphatase 73 U/L (45-117); BUN Blood Urea Nitrogen 14 mg/dL (7-18); Bicarbonate 25 mmol/L (21-32); Bilirubin Direct 0.1 mg/dL (0-0.2); Bilirubin Total 0.3 mg/dL (0.2-1.0); Glucose Level 134 mg/dL (74-106); Potassium 3.4 mmol/L (3.5-5.1); Protein, Total 7.7 g/dL (6.4-8.2); Sodium Level 141 mmol/L (136-145)
[2020-06-18] MEDS ORDERED: POTASSIUM 25 MEQ EFFERV TAB ONE (20:59)
--- NOTE | 2020-06-18 22:04 | EDPHYS ---
Physician Documentation [facility] Name: Chi Kelley Age: 50 yrs Sex: Male : 1970 Arrival Date: 06/18/2020 Time: 18:54 Bed 13 Private MD: ED Physician Ian Rhoades HPI: 06/18 19:46 This 50 yrs old Male presents to ER via EMS with complaints of accidental paige overdose, flexeril and trazadone. 19:46 not suicidal. Onset: The symptoms/episode began/occurred just prior to arrival, today. paige Severity of symptoms: At their worst the symptoms were mild in the emergency department the symptoms are unchanged. The patient has not experienced similar symptoms in the past. Historical: - Allergies: 19:00 No Known Allergies; ca1 - Home Meds: 19:00 Flexeril 10 mg Oral tab 1 tab daily [Active]; trazodone 50 mg oral tab 1 tab nightly ca1 [Active]; - PMHx: 19:00 chronic back pain; COPD; Hypothyroidism; Glaucoma; ca1 - PSHx: 19:00 Cholecystectomy; Hernia repair; ca1 - Immunization history:: Adult Immunizations up to date. - Social history:: Smoking status: Patient reports the use of cigarette tobacco products, smokes one-half pack cigarettes per day. ROS: 19:47 Constitutional: Negative for fever, chills, and weight loss, Eyes: Negative for injury, paige pain, redness, and discharge, ENT: Negative for injury, pain, and discharge, Neck: Negative for injury, pain, and swelling, Cardiovascular: Negative for chest pain, palpitations, and edema, Respiratory: Negative for shortness of breath, cough, wheezing, and pleuritic chest pain, Abdomen/GI: Negative for abdominal pain, nausea, vomiting, diarrhea, and constipation, Back: Negative for injury and pain, : Negative for injury, bleeding, discharge, and swelling, MS/Extremity: Negative for injury and deformity, Skin: Negative for injury, rash, and discoloration, Psych: Negative for depression, anxiety, suicide ideation, homicidal ideation, and hallucinations, Allergy/Immunology: Negative for hives, rash, and allergies, Endocrine: Negative for neck swelling, polydipsia, polyuria, polyphagia, and marked weight changes, Hematologic/Lymphatic: Negative for swollen nodes, abnormal bleeding, and unusual bruising. 19:47 Neuro: Positive for altered mental status. 19:47 Psych: Negative for anxiety, depression, drug dependence, alcohol dependence, auditory hallucinations, visual hallucinations, homicidal ideation, suicide gesture, suicidal ideation, acute changes. Exam: 19:47 Constitutional: This is a well developed, well nourished patient who is awake, alert, paige and in no acute distress. Head/Face: Normocephalic, atraumatic. Eyes: Pupils equal round and reactive to light, extra-ocular motions intact. Lids and lashes normal. Conjunctiva and sclera are non-icteric and not injected. Cornea within normal limits. Periorbital areas with no swelling, redness, or edema. ENT: Nares patent. No nasal discharge, no septal abnormalities noted. Tympanic membranes are normal and external auditory canals are clear. Oropharynx with no redness, swelling, or masses, exudates, or evidence of obstruction, uvula midline. Mucous membranes moist. Neck: Trachea midline, no thyromegaly or masses palpated, and no cervical lymphadenopathy. Supple, full range of motion without nuchal rigidity, or vertebral point tenderness. No Meningismus. Chest/axilla: Normal chest wall appearance and motion. Nontender with no deformity. No lesions are appreciated. Cardiovascular: Regular rate and rhythm with a normal S1 and S2. No gallops, murmurs, or rubs. Normal PMI, no JVD. No pulse deficits. Respiratory: Lungs have equal breath sounds bilaterally, clear to auscultation and percussion. No rales, rhonchi or wheezes noted. No increased work of breathing, no retractions or nasal flaring. Abdomen/GI: Soft, non-tender, with normal bowel sounds. No distension or tympany. No guarding or rebound. No evidence of tenderness throughout. Back: No spinal tenderness. No costovertebral tenderness. Full range of motion. Male : Normal genitalia with no discharge or lesions. Skin: Warm, dry with normal turgor. Normal color with no rashes, no lesions, and no evidence of cellulitis. MS/ Extremity: Pulses equal, no cyanosis. Neurovascular intact. Full, normal range of motion. Neuro: Awake and alert, GCS 15, oriented to person, place, time, and situation. Cranial nerves II-XII grossly intact. Motor strength 5/5 in all extremities. Sensory grossly intact. Cerebellar exam normal. Normal gait. Psych: Awake, alert, with orientation to person, place and time. Behavior, mood, and affect are within normal limits. 20:41 ECG was reviewed by the Attending Physician. paige 22:26 ECG was reviewed by the Attending Physician. [facility] Vital Signs: 18:54 BP 117 / 87; Pulse 88; Resp 16 S; Temp 98.3(TE); Pulse Ox 98% on R/A; Weight 90.72 kg aa5 (R); Height 5 ft. 9 in. (175.26 cm) (R); Pain 0/10; 20:26 BP 121 / 77; Pulse 75; Resp 18; Pulse Ox 96% on R/A; mg2 21:03 BP 118 / 69; Pulse 78; Resp 18; Pulse Ox 100% on R/A; mg2 22:22 BP 136 / 72; Pulse 70; Resp 18; Temp 98; Pulse Ox 100% on R/A; mg2 18:54 Body Mass Index 29.54 (90.72 kg, 175.26 cm) aa5 MDM: 19:20 Patient medically screened. [facility] 19:48 Data reviewed: vital signs, nurses notes, lab test result(s), EKG. [facility] 19:49 Differential Diagnosis altered mental status. Differential Diagnosis: electrolyte paige abnormality, alcohol intoxication, hypoglycemia, overdose, UTI, volume depletion. Data interpreted: monitor and storage bin tender: rate is 88 beats/min, rhythm is regular, Pulse oximetry: on room air is 98 %. Test interpretation: by ED physician or midlevel provider: ECG, plain radiologic studies. Counseling: I had a detailed discussion with the patient and/or guardian regarding: the historical points, exam findings, and any diagnostic results supporting the discharge/admit diagnosis, lab results. ED course: dw patient his results, not suicidal, will be more careful with meds. 22:01 ED course: pt remains stable, without complaint, repeat ekg normal, will dc and have [facility] patient follow up. 06/18 19:14 Order name: Acetaminophen mg2 06/18 19:14 Order name: Basic Metabolic Panel mg2 06/18 19:14 Order name: CBC with Diff; Complete Time: 19:49 mg2 06/18 19:14 Order name: ETOH Level; Complete Time: 20:38 mg2 06/18 19:14 Order name: Hepatic Function; Complete Time: 20:38 mg2 06/18 19:14 Order name: PT-INR; Complete Time: 20:38 mg2 06/18 19:14 Order name: Ptt, Activated; Complete Time: 20:38 mg2 06/18 19:14 Order name: Salicylate; Complete Time: 20:38 mg2 06/18 19:14 Order name: Urine Drug Screen; Complete Time: 20:38 mg2 06/18 19:15 Order name: Acetaminophen Level; Complete Time: 20:38 EDMS 06/18 19:15 Order name: Basic Metabolic Panel; Complete Time: 20:38 EDMS 06/18 19:26 Order name: Urine Dipstick--Ancillary (enter results); Complete Time: 20:38 sg 06/18 19:14 Order name: EKG; Complete Time: 19:15 mg2 06/18 19:14 Order name: EKG - Nurse/Tech; Complete Time: 19:16 mg2 06/18 19:14 Order name: IV Saline Lock; Complete Time: 19:16 mg2 06/18 19:14 Order name: Labs collected and sent; Complete Time: 19:16 mg2 06/18 19:14 Order name: Urine Dipstick-Ancillary (obtain specimen); Complete Time: 19:25 mg2 06/18 21:56 Order name: EKG - Nurse/Tech: Repeat EKG pls; Complete Time: 22:22 sg EC:41 Rate is 84 beats/min. Rhythm is regular. QRS [place] is Normal. ME interval is normal. QRS paige interval is normal. QT interval is normal. No Q waves. T waves are Normal. No ST changes noted. Clinical impression: Normal ECG and No evidence of ischemia. Interpreted by me. Reviewed by me. 22:26 Rate is 81 beats/min. Rhythm is regular. QRS [place] is Normal. ME interval is normal. QRS paige interval is normal. QT interval is normal. No Q waves. T waves are Normal. No ST changes noted. Clinical impression: Normal ECG and No evidence of ischemia. Interpreted by me. Reviewed by me. Administered Medications: Discontinued: NS 0.9% 1000 ml IV at 125 ml/hr continuous 19:52 Drug: NS 0.9% 1000 ml Route: IV; Rate: 1 bolus; Site: right antecubital; mg2 22:04 Follow up: Response: No adverse reaction; IV Status: Completed infusion; IV Intake: mg2 1000ml 21:02 Drug: NS 0.9% 1000 ml Route: IV; Rate: 125 ml/hr; Site: right antecubital; mg2 21:03 Drug: Potassium Effervescent Tablet 50 mEq Route: PO; mg2 22:04 Follow up: Response: No adverse reaction mg2 Disposition: 06/18/20 22:03 Discharged to Home. Impression: Poisoning by unspecified drugs, medicaments and biological substances, accidental (unintentional), Hypokalemia. - Condition is Stable. - Discharge Instructions: Potassium Content of Foods, Accidental Overdose, Weakness, Weakness, [id number], Hypokalemia. - Medication Reconciliation Form, Thank You Letter, Antibiotic Education, Prescription Opioid Use form. - Follow up: Private Physician; When: 2 - 3 days; Reason: Recheck today's complaints, Continuance of care, Re-evaluation by your physician. - Problem is new. - Symptoms have improved. Signatures: Dispatcher [employer] EDMS Sagar Hernández RN RN Ian Rhoades MD MD cha Gardose, Michele, RN RN [facility] Grecia Manzo RN RN ca1 Corrections: (The following items were deleted from the chart) 22:03 22:00 ED course: . paige [facility] 22:31 22:03 06/18/2020 22:03 Discharged to Home. Impression: Poisoning by unspecified drugs, mg2 medicaments and biological substances, accidental (unintentional); Hypokalemia. Condition is Stable. Discharge Instructions: Accidental Overdose, Weakness, Weakness, [id number], Potassium Content of Foods, Hypokalemia. Forms are Medication Reconciliation Form, Thank You Letter, Antibiotic Education, Prescription Opioid Use. Follow up: Private Physician; When: 2 - 3 days; Reason: Recheck today's complaints, Continuance of care, Re-evaluation by your physician. Problem is new. Symptoms have improved. paige
--- NOTE | 2020-06-18 22:04 | ER ---
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 Reports lightheadedness and nausea. BP 152/86, HR 96, RR 18. SPO2 98%, Temp 97.5. Chief complaint: Patient states: "I think I took 3-4 tabs of each bottle right there", pointing at the Trazodone and Cyclobenzaprine bottles. Coronavirus screen: Client denies travel out of the [place] in the last 14 days. At this time, the client does not indicate any symptoms associated with coronavirus-19. Ebola Screen: Patient negative for fever greater than or equal to 101.5 degrees Fahrenheit, and additional compatible Ebola Virus Disease symptoms Patient denies exposure to infectious person. Patient denies travel to an Ebola-affected area in the 21 days before illness onset. No symptoms or risks identified at this time. Initial Sepsis Screen: Does the patient meet any 2 criteria? Yes Does the patient have a suspected source of infection? No. Patient's initial sepsis screen is negative. Risk Assessment: Do you want to hurt yourself or someone else? Patient reports no desire to harm self or others. Onset of symptoms was June 18, 2020 at 18:00. 18:54 Method Of Arrival: EMS: [facility] ca1 18:54 Acuity: DORIAN 3 ca1 Triage Assessment: 19:00 General: Appears in no apparent distress. comfortable, Behavior is calm, cooperative, ca1 drowsy. Pain: Denies pain. Neuro: Level of Consciousness is awake, alert, obeys commands, Oriented to person, place, time, situation, Appropriate for age. Respiratory: Airway is patent Respiratory effort is even, unlabored, Respiratory pattern is regular, symmetrical. Historical: - Allergies: 19:00 No Known Allergies; ca1 - Home Meds: 19:00 Flexeril 10 mg Oral tab 1 tab daily [Active]; trazodone 50 mg oral tab 1 tab nightly ca1 [Active]; - PMHx: 19:00 chronic back pain; COPD; Hypothyroidism; Glaucoma; ca1 - PSHx: 19:00 Cholecystectomy; Hernia repair; ca1 - Immunization history:: Adult Immunizations up to date. - Social history:: Smoking status: Patient reports the use of cigarette tobacco products, smokes one-half pack cigarettes per day. Screenin:15 Abuse screen: Denies threats or abuse. Denies injuries from another. Nutritional mg2 screening: No deficits noted. Tuberculosis screening: No symptoms or risk factors identified. Fall Risk IV access (20 points). Assessment: 19:12 Reassessment: Called poison Control. Spoke with Lanny. Case # [id number]. Instructions: ca1 Cholinergic effects from Cyclobenzaprine: drowsiness, pupils enlarged, decrease bowel sounds, hypotension or hypertension, conduction issues like Q-T prolongation, should do EKG NOW then repeat in 4 hours. Trazodone effect: drowsiness. So put pt on Fall Risk. Observe pt for 8 hours from time of ingestion, so till 0200 06/19/2020. If patient continues to be symptomatic, admit patient. Do Tox Labs, UDS. If patient is not telling the truth and might have taken more than he is saying, put pt on SEIZURE precaution. 19:14 General: Appears in no apparent distress. comfortable, Behavior is calm, cooperative, mg2 drowsy. Pain: Denies pain. Neuro: Level of Consciousness is awake, alert, obeys commands, Oriented to person, place, time, situation. Cardiovascular: Capillary refill < 3 seconds Patient's skin is warm and dry. Respiratory: Airway is patent Respiratory effort is even, unlabored, Respiratory pattern is regular, symmetrical. GI: Reports nausea. : No signs and/or symptoms were reported regarding the genitourinary system. EENT: No signs and/or symptoms were reported regarding the EENT system. Derm: Skin is intact, is healthy with good turgor, Skin is pink, warm \\T\\ dry. normal. Musculoskeletal: Circulation, motion, and sensation intact. Capillary refill < 3 seconds. 21:03 Reassessment: Patient appears in no apparent distress at this time. mg2 21:07 Reassessment: Eli- updated about the patient, [id number]. mg2 21:33 Reassessment: poison control lanny updated for the status of the patient. 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 patient is fully awake and alert. Vital Signs: 18:54 BP 117 / 87; Pulse 88; Resp 16 S; Temp 98.3(TE); Pulse Ox 98% on R/A; Weight 90.72 kg aa5 (R); Height 5 ft. 9 in. (175.26 cm) (R); Pain 0/10; 20:26 BP 121 / 77; Pulse 75; Resp 18; Pulse Ox 96% on R/A; mg2 21:03 BP 118 / 69; Pulse 78; Resp 18; Pulse Ox 100% on R/A; mg2 22:22 BP 136 / 72; Pulse 70; Resp 18; Temp 98; Pulse Ox 100% on R/A; mg2 18:54 Body Mass Index 29.54 (90.72 kg, 175.26 cm) aa5 ED Course: 18:54 Patient arrived in ED. ca1 18:59 Triage completed. ca1 19:00 Arm band placed on right wrist. ca1 19:13 Shun Davey, RN is Primary Nurse. mg2 19:15 Patient has correct armband on for positive identification. radiation monitor on. Pulse mg2 ox on. NIBP on. Door closed. Warm blanket given. 19:15 No provider procedures requiring assistance completed. Inserted saline lock: 20 gauge mg2 in right antecubital area, using aseptic technique. Blood collected. 19:20 Ian Rhoades MD is Attending Physician. paige 22:31 IV discontinued, intact, bleeding controlled, No redness/swelling at site. Pressure mg2 dressing applied. Administered Medications: Discontinued: NS 0.9% 1000 ml IV at 125 ml/hr continuous 19:52 Drug: NS 0.9% 1000 ml Route: IV; Rate: 1 bolus; Site: right antecubital; mg2 22:04 Follow up: Response: No adverse reaction; IV Status: Completed infusion; IV Intake: mg2 1000ml 21:02 Drug: NS 0.9% 1000 ml Route: IV; Rate: 125 ml/hr; Site: right antecubital; mg2 21:03 Drug: Potassium Effervescent Tablet 50 mEq Route: PO; mg2 22:04 Follow up: Response: No adverse reaction mg2 Intake: 22:04 IV: 1000ml; Total: 1000ml. mg2 Outcome: 22:03 Discharge ordered by . paige 22:31 Discharged to home ambulatory. mg2 22:31 Condition: stable 22:31 Discharge instructions given to patient, Instructed on discharge instructions, follow up and referral plans. Demonstrated understanding of instructions, follow-up care. 22:31 Patient left the ED. mg2 Signatures: Ian Rhoades MD MD cha Calderon, Audri RN RN aa5 Shun Davey RN RN mg2 Magen Corbin, RN RN rr5 Grecia Manzo RN RN ca1 Corrections: (The following items were deleted from the chart) 19:04 18:54 BP 117 / 87; Pulse 88bpm; Resp 16bpm; Spontaneous; Pulse Ox 98% RA; Temp 98.3F aa5 Temporal; 90.72 kg Reported; Height 5 ft. 9 in. Reported; BMI: 29.5; Pain 0/10; ca1 19:18 19:04 Reassessment: aa5 ca1
--- NOTE | 2020-06-19 12:23 | EKG ---
Test Date: 2020-06-18 Test Time: 19:10:05 Media Senior Recruiter: MEASUREMENT RESULTS: Intervals: Rate: 84 CA: 170 QRSD: 86 QT: 368 QTc: 434 [place]: P: 46 CA: 170 QRS: 35 T: 53 INTERPRETIVE STATEMENTS: Normal sinus rhythm Normal ECG Compared to ECG 07/20/2019 20:56:56 No significant changes Electronically Signed On 06-19-20 12:22:41 CDT by Zack Tong
--- NOTE | 2020-06-19 12:23 | EKG ---
Test Date: 2020-06-18 Test Time: 22:21:55 Clinical Project Assistant: MEASUREMENT RESULTS: Intervals: Rate: 81 MI: 172 QRSD: 86 QT: 360 QTc: 418 [place]: P: 44 MI: 172 QRS: 23 T: 49 INTERPRETIVE STATEMENTS: Normal sinus rhythm Normal ECG Compared to ECG 07/20/2019 20:56:56 No significant changes Electronically Signed On 06-19-20 12:22:36 CDT by Zack Tong
== END 2020-06-18 22:31 | disposition home or self-care (01) ==
LOC: ER 18:48
DX: T50.901A Poisoning by unspecified drugs, medicaments and biological substances, accidental (unintentional), initial encounter (principal); Y92.9 Unspecified place or not applicable; E87.6 Hypokalemia; M54.9 Dorsalgia, unspecified; F17.210 Nicotine dependence, cigarettes, uncomplicated
CPT/HCPCS: 93005 ×2; 85025; 80048; 36415; 80320; 80329 ×2; 85610; 80076; 80307 ×8; 85730; 81003; J7030 ×2; 96360; 96361; 99284

== ENCOUNTER 2020-06-24 21:39 | Emergency (ER) | payer OTHER ==
[2020-06-24] MEDS ORDERED: MORPHINE 4 MG/ML SYR ONE (22:43)
[2020-06-24] MEDS ORDERED: ONDANSETRON 4 MG/2 ML VIAL ONE (22:43)
[2020-06-24] MEDS ORDERED: NA CHLORIDE 0.9% 1,000 ML ONE (22:44)
[2020-06-24 23:15] LABS: Absolute Lymphocytes (CBC) 2.9 K/uL (0.7-4.9); Basophils % 0.7 % (0-1.3); Hematocrit 41.9 % (39.6-49.0); Lymphocytes % 28.6 % (15.3-44.8); RBC Red Blood Cell Count 4.61 M/uL (4.33-5.43)
[2020-06-24 23:21] LABS: Albumin 3.9 g/dL (3.4-5.0); Bilirubin Direct 0.1 mg/dL (0-0.2); Bilirubin Total 0.5 mg/dL (0.2-1.0); Potassium 3.6 mmol/L (3.5-5.1); Protein, Total 7.6 g/dL (6.4-8.2)
--- NOTE | 2020-06-25 01:14 | ER ---
Nurse's Notes [facility] Name: Chi Kelley Age: 50 yrs Sex: Male : 1970 Arrival Date: 06/24/2020 Time: 21:40 Bed 13 Private MD: Diagnosis: Abdominal tenderness Presentation: 06/24 21:54 Chief complaint: EMS states: C/O right side abdominal pain and right flank pain for a wh few days now. Pt states loss of appetite and diarrhea yesterday. Coronavirus screen: Client denies travel out of the [place] in the last 14 days. At this time, the client does not indicate any symptoms associated with coronavirus-19. Ebola Screen: Patient negative for fever greater than or equal to 101.5 degrees Fahrenheit, and additional compatible Ebola Virus Disease symptoms Patient denies exposure to infectious person. Initial Sepsis Screen: Does the patient meet any 2 criteria? No. Patient's initial sepsis screen is negative. Does the patient have a suspected source of infection? Yes: Acute abdominal pain. Risk Assessment: Do you want to hurt yourself or someone else? Patient reports no desire to harm self or others. Onset of symptoms was June 24, 2020. 21:54 Method Of Arrival: EMS: [facility] 21:54 Acuity: DORIAN 3 wh Historical: - Allergies: 21:57 No Known Allergies; wh - PMHx: 21:57 chronic back pain; COPD; Glaucoma; Hypothyroidism; wh - PSHx: 21:57 Cholecystectomy; Hernia repair; wh - Immunization history:: Adult Immunizations up to date. - Social history:: Smoking status: Patient reports the use of cigarette tobacco products, 5 PPD, Patient/guardian denies using alcohol, street drugs. Screenin:30 Abuse screen: Denies threats or abuse. Denies injuries from another. Nutritional wh screening: No deficits noted. Tuberculosis screening: No symptoms or risk factors identified. Fall Risk None identified. Assessment: 22:10 General: Appears in no apparent distress. uncomfortable, Behavior is calm, cooperative, wh appropriate for age. Pain: Complains of pain in right upper quadrant and right lower quadrant Pain radiates to right mid back and right low back Pain currently is 8 out of 10 on a pain scale. Quality of pain is described as sharp, Pain began 2-3 days ago. Is intermittent. Neuro: Level of Consciousness is awake, alert, obeys commands, Oriented to person, place, time, situation, Appropriate for age. Cardiovascular: Heart tones S1 S2. Respiratory: Airway is patent Respiratory effort is even, unlabored, Respiratory pattern is regular, symmetrical, Breath sounds are clear bilaterally. GI: Abdomen is flat, non-distended, Bowel sounds present X 4 quads. Abd is soft Abdomen is tender to palpation in right upper quadrant and right lower quadrant Reports lower abdominal pain, upper abdominal pain. : No signs and/or symptoms were reported regarding the genitourinary system. EENT: No signs and/or symptoms were reported regarding the EENT system. Derm: Skin is intact, is healthy with good turgor, Skin is pink, warm \T\ dry. normal. Musculoskeletal: Circulation, motion, and sensation intact. 23:13 Reassessment: Patient appears in no apparent distress at this time. No changes from previously documented assessment. Patient and/or family updated on plan of care and expected duration. Pain level reassessed. Patient is alert, oriented x 3, equal unlabored respirations, skin warm/dry/pink. 06/25 00:08 Reassessment: Patient is alert, oriented x 3, equal unlabored respirations, skin wh warm/dry/pink. Patient states feeling better. Patient states symptoms have improved. 01:11 Reassessment: Patient is alert, oriented x 3, equal unlabored respirations, skin wh warm/dry/pink. FF up with [facility] result. 01:20 Reassessment: Pt with DC order but with no ride home as Pt doesn't own any vehicle, notified Charge Nurse and House Sup and agreeable to provide taxi for transportation. Vital Signs: 06/24 21:54 BP 126 / 88; Pulse 80; Resp 18; Temp 97.9; Pulse Ox 100% ; Weight 81.65 kg; Height 5 wh ft. 9 in. (175.26 cm); Pain 8/10; 23:14 BP 122 / 74; Pulse 76; Resp 18; Pulse Ox 98% on R/A; wh 06/25 00:08 BP 125 / 80; Pulse 69; Resp 18; Pulse Ox 97% ; wh 01:12 BP 118 / 71; Pulse 66; Resp 18; Pulse Ox 99% on R/A; 02:26 BP 121 / 84; Pulse 67; Resp 18; Pulse Ox 99% on R/A; 06/24 21:54 Body Mass Index 26.58 (81.65 kg, 175.26 cm) ED Course: 06/24 21:40 Patient arrived in ED. ds1 21:54 Eugene Qureshi MD is Attending Physician. tw4 21:54 Domo Seymour is Primary Nurse. 21:57 Triage completed. 22:30 Arm band placed on right wrist. 22:30 Patient has correct armband on for positive identification. Bed in low position. Call light in reach. Side rails up X 1. Pulse ox on. NIBP on. 22:45 Inserted saline lock: 20 gauge in right antecubital area, using aseptic technique. Blood collected. 23:14 Radiology exam delayed due to lab results not completed at this time. (BUN/Creatinine). kw1 23:48 CT Abd/Pelvis - IV Contrast Only In Process Unspecified. [facility] 06/25 02:26 No provider procedures requiring assistance completed. IV discontinued, intact, bleeding controlled, No redness/swelling at site. Administered Medications: 06/24 22:32 Drug: NS 0.9% 1000 ml Route: IV; Rate: 1 bolus; Site: right antecubital; 06/25 01:23 Follow up: Response: No adverse reaction; IV Status: Completed infusion 06/24 22:34 Drug: morphine 4 mg {Note: RASS 0.} Route: IVP; Site: right antecubital; 06/25 01:24 Follow up: Response: No adverse reaction; Pain is decreased; RASS: Alert and Calm (0) 06/24 22:36 Drug: Zofran (Ondansetron) 4 mg Route: IVP; Site: right antecubital; 06/25 01:24 Follow up: Response: No adverse reaction; Nausea is decreased Outcome: 01:14 Discharge ordered by . tw4 02:23 Patient left the ED. mw2 02:26 Discharged to home ambulatory. 02:26 Condition: stable 02:26 Discharge instructions given to patient, Instructed on discharge instructions, follow up and referral plans. medication usage, POC Demonstrated understanding of instructions, follow-up care, medications, POC Prescriptions given X 2. Signatures: Dispatcher [employer] [facility] Zena Aburto ds1 Domo Seymour wh Carlie Cardenas kw1 Eugene Qureshi MD MD tw4 Juanita Vallecillo mw2 Corrections: (The following items were deleted from the chart) 01:12 01:11 Reassessment: Patient is alert, oriented x 3, equal unlabored respirations, skin wh warm/dry/pink. wh
--- NOTE | 2020-06-25 01:15 | EDPHYS ---
Physician Documentation [facility] Name: Chi Kelley Age: 50 yrs Sex: Male : 1970 Arrival Date: 06/24/2020 Time: 21:40 Bed 13 Private MD: ED Physician Eugene Qureshi HPI: 06/24 22:38 This 50 yrs old Male presents to ER via EMS with complaints of Abdominal Pain.tw4 22:38 The patient presents with abdominal pain in the right upper quadrant, right lower tw4 quadrant. Onset: The symptoms/episode began/occurred 5 day(s) ago. The symptoms do not radiate. Associated signs and symptoms: none. Severity of pain: At its worst the pain was moderate in the emergency department the pain is unchanged. The patient has not experienced similar symptoms in the past. Historical: - Allergies: 21:57 No Known Allergies; wh - PMHx: 21:57 chronic back pain; COPD; Glaucoma; Hypothyroidism; wh - PSHx: 21:57 Cholecystectomy; Hernia repair; wh - Immunization history:: Adult Immunizations up to date. - Social history:: Smoking status: Patient reports the use of cigarette tobacco products, 5 PPD, Patient/guardian denies using alcohol, street drugs. ROS: 22:38 Constitutional: Negative for fever, chills, and weight loss, Eyes: Negative for injury, tw4 pain, redness, and discharge, Cardiovascular: Negative for chest pain, palpitations, and edema, Respiratory: Negative for shortness of breath, cough, wheezing, and pleuritic chest pain, Abdomen/GI: Negative for abdominal pain, nausea, vomiting, diarrhea, and constipation, Back: Negative for injury and pain, MS/Extremity: Negative for injury and deformity, Skin: Negative for injury, rash, and discoloration, Neuro: Negative for headache, weakness, numbness, tingling, and seizure. Exam: 22:38 Constitutional: This is a well developed, well nourished patient who is awake, alert, tw4 and in no acute distress. Head/Face: Normocephalic, atraumatic. Chest/axilla: Normal chest wall appearance and motion. Nontender with no deformity. No lesions are appreciated. Cardiovascular: Regular rate and rhythm with a normal S1 and S2. No gallops, murmurs, or rubs. Normal PMI, no JVD. No pulse deficits. Respiratory: Lungs have equal breath sounds bilaterally, clear to auscultation and percussion. No rales, rhonchi or wheezes noted. No increased work of breathing, no retractions or nasal flaring. Abdomen/GI: Soft, non-tender, with normal bowel sounds. No distension or tympany. No guarding or rebound. No evidence of tenderness throughout. Back: No spinal tenderness. No costovertebral tenderness. Full range of motion. MS/ Extremity: Pulses equal, no cyanosis. Neurovascular intact. Full, normal range of motion. Vital Signs: 21:54 BP 126 / 88; Pulse 80; Resp 18; Temp 97.9; Pulse Ox 100% ; Weight 81.65 kg; Height 5 wh ft. 9 in. (175.26 cm); Pain 8/10; 23:14 BP 122 / 74; Pulse 76; Resp 18; Pulse Ox 98% on R/A; 06/25 00:08 BP 125 / 80; Pulse 69; Resp 18; Pulse Ox 97% ; wh 01:12 BP 118 / 71; Pulse 66; Resp 18; Pulse Ox 99% on R/A; 02:26 BP 121 / 84; Pulse 67; Resp 18; Pulse Ox 99% on R/A; 06/24 21:54 Body Mass Index 26.58 (81.65 kg, 175.26 cm) MDM: 06/24 21:54 Patient medically screened. tw4 06/25 06:48 Data reviewed: vital signs, nurses notes. Data reviewed: lab test result(s), CBC, tw4 electrolytes, hepatic panel, radiologic studies, CT scan. Data interpreted: Pulse oximetry: Interpretation: normal. Counseling: I had a detailed discussion with the patient and/or guardian regarding: the historical points, exam findings, and any diagnostic results supporting the discharge/admit diagnosis, lab results, radiology results. Special discussion: I discussed with the patient/guardian in detail that at this point there is no indication for admission to the hospital. It is understood, however, that if the symptoms persist or worsen the patient needs to return immediately for re-evaluation. 06/24 22:19 Order name: Basic Metabolic Panel; Complete Time: 23:24 tw4 06/24 23:24 Interpretation: Normal except: BUN 19; CRE 1.31; GFR 58; CL 108. [facility] 06/24 22:19 Order name: CBC with Diff; Complete Time: 23:24 [facility] 06/24 23:24 Interpretation: Normal except: WBC 10.2. [facility] 06/24 22:19 Order name: Hepatic Function; Complete Time: 23:24 [facility] 06/24 23:25 Interpretation: Normal except: GLOB 3.7. [facility] 06/24 22:19 Order name: Lipase; Complete Time: 23:24 [facility] 06/24 22:19 Order name: CT Abd/Pelvis - IV Contrast Only [facility] 06/25 01:25 Order name: Urine Dipstick--Ancillary (enter results); Complete Time: 02:07 [facility] 06/25 02:07 Interpretation: Normal except: UKET 1+; UPROT 2+. [facility] 06/24 22:19 Order name: IV Saline Lock; Complete Time: 22:36 [facility] 06/24 22:19 Order name: Labs collected and sent; Complete Time: 22:36 [facility] 06/25 01:14 Order name: Urine Dipstick-Ancillary (obtain specimen); Complete Time: 01:23 [facility] Administered Medications: 06/24 22:32 Drug: NS 0.9% 1000 ml Route: IV; Rate: 1 bolus; Site: right antecubital; 06/25 01:23 Follow up: Response: No adverse reaction; IV Status: Completed infusion 06/24 22:34 Drug: morphine 4 mg {Note: RASS 0.} Route: IVP; Site: right antecubital; 06/25 01:24 Follow up: Response: No adverse reaction; Pain is decreased; RASS: Alert and Calm (0) 06/24 22:36 Drug: Zofran (Ondansetron) 4 mg Route: IVP; Site: right antecubital; 06/25 01:24 Follow up: Response: No adverse reaction; Nausea is decreased Disposition: 06/25/20 01:14 Discharged to Home. Impression: Abdominal tenderness. - Condition is Stable. - Discharge Instructions: Abdominal Pain, Adult, [id number]. - Prescriptions for Bentyl 20 mg Oral Tablet - take 1 tablet by ORAL route every 6 hours As needed; 20 tablet. Protonix 40 mg Oral Tablet - take 1 tablet by ORAL route once daily; 30 tablet. - Medication Reconciliation Form, Thank You Letter, Antibiotic Education, Prescription Opioid Use form. - Follow up: Private Physician; When: Upon discharge from the Emergency Department; Reason: Recheck today's complaints, Continuance of care, Re-evaluation by your physician. - Problem is new. - Symptoms have improved. Signatures: Dispatcher [employer] Domo Seymour Terrence, MD MD tw4 Juanita Vallecillo mw2 Corrections: (The following items were deleted from the chart) 02:23 01:14 06/25/2020 01:14 Discharged to Home. Impression: Abdominal tenderness. Condition mw2 is Stable. Forms are Medication Reconciliation Form, Thank You Letter, Antibiotic Education, Prescription Opioid Use. Follow up: Private Physician; When: Upon discharge from the Emergency Department; Reason: Recheck today's complaints, Continuance of care, Re-evaluation by your physician. Problem is new. Symptoms have improved. tw4
[2020-06-25 01:32] LABS: Urine Blood NEGATIVE (NEG); Urine Glucose NEGATIVE (NEG); Urine Protein 2+ (NEG); Urine pH 5.5 (5.0-7.0)
--- NOTE | 2020-06-25 11:10 | RAD REPORT ---
EXAM DESCRIPTION: CT ABDOMEN PELVIS W CONTRAST CLINICAL HISTORY: ABD PAIN TECHNIQUE: Contiguous axial images obtained through the abdomen and pelvis following the uneventful administration of IV contrast. Coronal and sagittal reformatted images were provided. This exam was performed according to our departmental dose-optimization program, which includes autom ated exposure control, adjustment of the mA and/or kV according to patient size and/or use of iterati ve reconstruction technique. COMPARISON: 12/16/2018 FINDINGS: Lung bases: Bibasilar subsegmental atelectasis/pleural parenchymal scar. Liver: Unremarkable Gallbladder and biliary system: Prior cholecystectomy. Pancreas: Unremarkable Spleen: Unremarkable Adrenals: Unremarkable Kidneys: Normal renal cortical enhancement. Small bilateral calculi. No hydronephrosis. Bowel: No obstruction. No appreciable mucosal thickening. Appendix: Normal caliber appendix. No findings to suggest acute appendicitis. Urinary bladder: Unremarkable Reproductive: Unremarkable as visualized Lymph nodes: No pathologically enlarged lymph nodes. Peritoneum: No focal fluid collection. No free air. Vessels: Mild atherosclerotic disease. No abdominal aortic aneurysm. Abdominal wall: Prior left inguinal hernia repair. Bones: Multilevel spondylosis. No acute fracture. IMPRESSION: 1. No acute abnormality identified within the abdomen and pelvis. 2. Other findings as above. Electronically signed by: Dianelys Campos MD 06/25/2020 12:03 AM CDT Due to temporary technical issues with the PACS/Fluency reporting system, reports are being signed by the in house radiologist without review as a courtesy to ensure prompt reporting. The interpreting r adiologist is fully responsible for the content of the report.
[2020-06-25 13:05] VITALS: TEMP 97.9
[2020-06-25 13:09] VITALS: BP 118/71; O2SAT 99
== END 2020-06-25 02:23 | disposition home or self-care (01) ==
LOC: ER 21:39
DX: R10.819 Abdominal tenderness, unspecified site (principal); G89.29 Other chronic pain; F17.210 Nicotine dependence, cigarettes, uncomplicated
CPT/HCPCS: 96361; 85025; 80048; 36415; 80076; 81003; 83690; 74177; 96375; 96374; 99284; Q9967; J7030; J2405

== ENCOUNTER 2020-07-27 17:29 | Observation (INO) | payer OTHER ==
[2020-07-27 17:51] LABS: Absolute Lymphocytes (CBC) 2.1 K/uL (0.7-4.9); Basophils % 0.9 % (0-1.3); Hematocrit 42.3 % (39.6-49.0); Lymphocytes % 24.8 % (15.3-44.8); MPV 9.6 fL (7.6-11.3)
[2020-07-27] MEDS ORDERED: NA CHLORIDE 0.9% 1,000 ML ONE (17:56)
[2020-07-27 18:07] LABS: ALT/SGPT 56 U/L (12-78); AST/SGOT 22 U/L (15-37); Alkaline Phosphatase 70 U/L (45-117); BUN Blood Urea Nitrogen 15 mg/dL (7-18); Bicarbonate 26 mmol/L (21-32); Bilirubin Direct 0.1 mg/dL (0-0.2); Bilirubin Total 0.5 mg/dL (0.2-1.0); Glucose Level 142 mg/dL (74-106); Lipase 93 U/L (73-393); Magnesium 2.1 mg/dL (1.8-2.4); NT PRO-BNP 14 pg/mL (<125); Potassium 3.8 mmol/L (3.5-5.1); Protein, Total 7.4 g/dL (6.4-8.2); Sodium Level 142 mmol/L (136-145); Troponin (Emerg Dept Use Only) < 0.02 ng/mL (0.0-0.045)
[2020-07-27] MEDS ORDERED: ACETAMINOPHEN 500 MG TAB ONE (18:09)
[2020-07-27] MEDS ORDERED: MORPHINE 2 MG/ML SYR ONE (18:09)
[2020-07-27] MEDS ORDERED: ONDANSETRON 4 MG/2 ML VIAL ONE (18:09)
--- NOTE | 2020-07-27 18:12 | EDPHYS ---
Physician Documentation [facility] Name: Chi Kelley Age: 50 yrs Sex: Male : 1970 Arrival Date: 07/27/2020 Time: 17:33 Bed 18 Private MD: ED Physician Ian Rhoades HPI: 07/27 17:49 This 50 yrs old Male presents to ER via EMS with complaints of Chest Pain > paige 29 y/o. 17:49 The patient or guardian reports chest pain that is located primarily in the substernal paige area. Onset: just prior to arrival. The pain does not radiate. Associated signs and symptoms: Pertinent positives: headache, shortness of breath. The chest pain is described as a pressure. Modifying factors: The symptoms are alleviated by remaining still, rest, the symptoms are aggravated by activity, exertion. Severity of pain: At its worst the pain was moderate in the emergency department the pain has improved. EMS care prior to arrival includes: aspirin, IV fluids, nitroglycerin, x 2 supplemental oxygen. Historical: - Allergies: 17:35 No Known Allergies; ss - PMHx: 17:35 chronic back pain; COPD; Glaucoma; Hypothyroidism; ss - PSHx: 17:35 Cholecystectomy; Hernia repair; ss - Immunization history:: Adult Immunizations up to date. - Social history:: Smoking status: Patient denies any tobacco usage or history of. - Family history:: not pertinent. ROS: 17:49 Constitutional: Negative for fever, chills, and weight loss, Eyes: Negative for injury, paige pain, redness, and discharge, ENT: Negative for injury, pain, and discharge, Neck: Negative for injury, pain, and swelling, Cardiovascular: Negative for chest pain, palpitations, and edema, Respiratory: Negative for shortness of breath, cough, wheezing, and pleuritic chest pain, Abdomen/GI: Negative for abdominal pain, nausea, vomiting, diarrhea, and constipation, Back: Negative for injury and pain, : Negative for injury, bleeding, discharge, and swelling, MS/Extremity: Negative for injury and deformity, Skin: Negative for injury, rash, and discoloration, Neuro: Negative for headache, weakness, numbness, tingling, and seizure, Psych: Negative for depression, anxiety, suicide ideation, homicidal ideation, and hallucinations, Endocrine: Negative for neck swelling, polydipsia, polyuria, polyphagia, and marked weight changes, Hematologic/Lymphatic: Negative for swollen nodes, abnormal bleeding, and unusual bruising. 17:49 MS/extremity: Negative for swelling, tenderness. Exam: 17:49 Constitutional: This is a well developed, well nourished patient who is awake, alert, paige and in no acute distress. Head/Face: Normocephalic, atraumatic. Eyes: Pupils equal round and reactive to light, extra-ocular motions intact. Lids and lashes normal. Conjunctiva and sclera are non-icteric and not injected. Cornea within normal limits. Periorbital areas with no swelling, redness, or edema. ENT: Nares patent. No nasal discharge, no septal abnormalities noted. Tympanic membranes are normal and external auditory canals are clear. Oropharynx with no redness, swelling, or masses, exudates, or evidence of obstruction, uvula midline. Mucous membranes moist. Neck: Trachea midline, no thyromegaly or masses palpated, and no cervical lymphadenopathy. Supple, full range of motion without nuchal rigidity, or vertebral point tenderness. No Meningismus. Chest/axilla: Normal chest wall appearance and motion. Nontender with no deformity. No lesions are appreciated. Cardiovascular: Regular rate and rhythm with a normal S1 and S2. No gallops, murmurs, or rubs. Normal PMI, no JVD. No pulse deficits. Respiratory: Lungs have equal breath sounds bilaterally, clear to auscultation and percussion. No rales, rhonchi or wheezes noted. No increased work of breathing, no retractions or nasal flaring. Abdomen/GI: Soft, non-tender, with normal bowel sounds. No distension or tympany. No guarding or rebound. No evidence of tenderness throughout. Back: No spinal tenderness. No costovertebral tenderness. Full range of motion. Skin: Warm, dry with normal turgor. Normal color with no rashes, no lesions, and no evidence of cellulitis. MS/ Extremity: Pulses equal, no cyanosis. Neurovascular intact. Full, normal range of motion. Neuro: Awake and alert, GCS 15, oriented to person, place, time, and situation. Cranial nerves II-XII grossly intact. Motor strength 5/5 in all extremities. Sensory grossly intact. Cerebellar exam normal. Normal gait. Psych: Awake, alert, with orientation to person, place and time. Behavior, mood, and affect are within normal limits. 17:49 Neck: ROM/movement: is normal, no acute changes, limited range of motion, is not appreciated, Meningeal signs: are not present, Kernig's sign is negative, Brudzinski's sign is negative, nuchal rigidity, is not appreciated. Vital Signs: 17:33 BP 115 / 60; Pulse 92; Resp 18; Pulse Ox 96% on R/A; Pain 4/10; ss 18:05 Temp 97.9(O); ss 18:05 Pain 0/10; ss 19:15 Weight 85.28 kg; ss 19:57 BP 125 / 83; Pulse 67; Resp 16 S; Pulse Ox 99% on R/A; jd3 MDM: 17:36 Patient medically screened. paige 17:53 Differential diagnosis: abnormal EKG, acute pericarditis, anxiety, coronary artery paige disease chest wall pain, congestive heart failure esophagitis, gastritis, hiatal hernia, pancreatitis, pneumonia, pneumothorax, pulmonary embolus, stable angina, unstable angina. HEART Score: History: Moderately Suspicious (1), ECG: Normal (0), Age: < or = 45 years (0), Risk Factors: 1 or 2 risk factors (1), [+ Family HX] Troponin: < or = 1 x Normal Limit (0). The patient was given aspirin in the Emergency Department. The patient's deep vein thrombosis risk score was calculated as follows: Total Score: 0. This patient was found to be at low risk for a deep vein thrombosis by using the Well's assessment criteria. The patient's pulmonary embolism risk score was calculated as follows: Total Score: 0-2 points. This patient was found to be at low risk for a pulmonary embolism by using the Well's assessment criteria. LIZY Risk Score: TOTAL SCORE = 0. Data reviewed: vital signs, nurses notes, lab test result(s), EKG, radiologic studies, CT scan, plain films. Data interpreted: library monitor: rate is 92 beats/min, rhythm is regular, Pulse oximetry: on room air is 96 %. Test interpretation: by ED physician or midlevel provider: ECG, plain radiologic studies. Counseling: I had a detailed discussion with the patient and/or guardian regarding: the historical points, exam findings, and any diagnostic results supporting the discharge/admit diagnosis, lab results, radiology results, the need for further work-up and treatment in the hospital. 07/27 17:35 Order name: Basic Metabolic Panel; Complete Time: 18:08 [facility] 07/27 17:35 Order name: CBC with Diff; Complete Time: 18:06 [facility] 07/27 17:35 Order name: LFT's; Complete Time: 18:08 [facility] 07/27 17:35 Order name: Magnesium; Complete Time: 18:08 [facility] 07/27 17:35 Order name: NT PRO-BNP; Complete Time: 18:08 [facility] 07/27 17:35 Order name: Troponin (emerg Dept Use Only); Complete Time: 18:08 [facility] 07/27 17:35 Order name: Lipase; Complete Time: 18:08 [facility] 07/27 17:35 Order name: UDS [facility] 07/27 19:15 Order name: Comprehensive Metabolic Panel [facility] 07/27 19:15 Order name: Comprehensive Metabolic Panel [facility] 07/27 19:15 Order name: Creatine Phosphokinase [facility] 07/27 19:15 Order name: Creatine Phosphokinase [facility] 07/27 19:15 Order name: Creatine Phosphokinase [facility] 07/27 19:17 Order name: Thyroid Stimulating Hormone [facility] 07/27 17:35 Order name: XRAY Chest (1 view); Complete Time: 18:42 [facility] 07/27 17:35 Order name: EKG; Complete Time: 17:36 [facility] 07/27 17:35 Order name: Cardiac monitoring; Complete Time: 17:48 [facility] 07/27 17:49 Order name: CT Head Brain wo Cont; Complete Time: 18:42 [facility] 07/27 19:16 Order name: CONS Pharmacy Consult [facility] 07/27 19:16 Order name: CONS Physician Consult [facility] 07/27 19:16 Order name: CONS Physician Consult [facility] 07/27 19:16 Order name: Regular [facility] 07/27 19:17 Order name: Troponin I [facility] 07/27 17:35 Order name: EKG - Nurse/Tech; Complete Time: 17:48 [facility] 07/27 17:35 Order name: IV Saline Lock; Complete Time: 19:19 [facility] 07/27 17:35 Order name: Labs collected and sent; Complete Time: 19:17 [facility] 07/27 17:35 Order name: O2 Per Protocol; Complete Time: 19:18 [facility] 07/27 17:35 Order name: O2 Sat Monitoring; Complete Time: 19:18 [facility] Administered Medications: 17:50 Drug: NS 0.9% 1000 ml Route: IV; Rate: 125 ml/hr; Site: right antecubital; ss 20:11 Follow up: Response: No adverse reaction; IV Status: Infusion continued upon admission jd3 18:01 Drug: Zofran (Ondansetron) 4 mg Route: IVP; Site: right antecubital; ss 19:10 Follow up: Response: No adverse reaction ss 18:03 Drug: morphine 2 mg Route: IVP; Site: right antecubital; ss 19:10 Follow up: Response: No adverse reaction; Pain is decreased ss 18:04 Drug: Tylenol 1000 mg Route: PO; ss 19:10 Follow up: Response: No adverse reaction; Pain is decreased ss 19:56 Drug: Pepcid 20 mg Route: IVP; Site: right antecubital; jd3 20:10 Follow up: Response: No adverse reaction jd3 19:56 Drug: Lovenox 1 mg/kg Route: Sub-Q; Site: abdomen; jd3 20:10 Follow up: Response: No adverse reaction jd3 19:57 Drug: Lopressor (metoprolol TARTRATE) 50 mg Route: PO; jd3 20:10 Follow up: Response: No adverse reaction jd3 Disposition: 07/27/20 18:12 Hospitalization ordered by Heidi Orozco for Observation. Preliminary diagnosis are Angina pectoris, Unspecified kidney failure - mild renal insufficency. - Bed requested for Telemetry/MedSurg (observation). - Status is Observation. jd3 - Condition is Stable. - Problem is new. - Symptoms have improved. Signatures: Dispatcher [employer] Ian Rogers MD MD cha Smirch, Shelby RN RN ss Isis Tavarez RN RN tl1 Dat Quiles RN RN jd3 Corrections: (The following items were deleted from the chart) 18:17 18:12 Hospitalization Ordered by Heidi Orozco MD for Observation. Preliminary [facility] diagnosis is Angina pectoris. Bed requested for Telemetry/MedSurg (observation). Status is Observation. Condition is Stable. Problem is new. Symptoms have improved. [facility] 19:28 18:17 07/27/2020 18:12 Hospitalization Ordered by Heidi Orozco MD for Observation. tl1 Preliminary diagnosis is Angina pectoris; Unspecified kidney failure - mild renal insufficency. Bed requested for Telemetry/MedSurg (observation). Status is Observation. Condition is Stable. Problem is new. Symptoms have improved. paige 20:16 19:28 07/27/2020 18:12 Hospitalization Ordered by Heidi Orozco MD for Observation. jd3 Preliminary diagnosis is Angina pectoris; Unspecified kidney failure - mild renal insufficency. Bed requested for Telemetry/MedSurg (observation). Status is Observation. Condition is Stable. Problem is new. Symptoms have improved. tl1
--- NOTE | 2020-07-27 18:12 | ER ---
Nurse's Notes [facility] Name: Chi Kelley Age: 50 yrs Sex: Male : 1970 Arrival Date: 07/27/2020 Time: 17:33 Bed 18 Private MD: Diagnosis: Angina pectoris;Unspecified kidney failure-mild renal insufficency Presentation: 07/27 17:33 Chief complaint: Patient states: Substernal chest pain that began 2 days ago. ss Reportedly radiates down L arm and up jaw. ASA 324 given en route to ED and 2 sprays of Nitro given. Pt reports that pain decreased from 06/27 to 10. Coronavirus screen: Client denies travel out of the [place] in the last 14 days. Ebola Screen: Patient denies exposure to infectious person. Patient denies travel to an Ebola-affected area in the 21 days before illness onset. Initial Sepsis Screen: Does the patient meet any 2 criteria? HR > 90 bpm. Does the patient have a suspected source of infection? No. Patient's initial sepsis screen is negative. Risk Assessment: Do you want to hurt yourself or someone else? Patient reports no desire to harm self or others. Onset of symptoms was July 25, 2020. 17:33 Method Of Arrival: EMS: [facility] ss 17:33 Acuity: DORIAN 2 ss Historical: - Allergies: 17:35 No Known Allergies; ss - PMHx: 17:35 chronic back pain; COPD; Glaucoma; Hypothyroidism; ss - PSHx: 17:35 Cholecystectomy; Hernia repair; ss - Immunization history:: Adult Immunizations up to date. - Social history:: Smoking status: Patient denies any tobacco usage or history of. - Family history:: not pertinent. Screenin:33 Abuse screen: Denies threats or abuse. Denies injuries from another. Nutritional ss screening: No deficits noted. Tuberculosis screening: Never had TB. Fall Risk None identified. Assessment: 17:33 General: Appears in no apparent distress. comfortable, Behavior is calm, cooperative, ss Denies fever, feeling ill, fatigue, chills. Pain: Complains of pain in chest Pain radiates to left jaw and left arm Pain currently is 4 out of 10 on a pain scale. Quality of pain is described as unable to describe Pain began 2-3 days ago. Is intermittent. Neuro: Level of Consciousness is awake, alert, obeys commands, Oriented to person, place, time, situation. Cardiovascular: Capillary refill < 3 seconds is brisk in bilateral fingers. Respiratory: Airway is patent Respiratory effort is even, unlabored, Respiratory pattern is regular, symmetrical. GI: Patient currently denies diarrhea, nausea, vomiting. : No signs and/or symptoms were reported regarding the genitourinary system. EENT: Oral mucosa is moist. Derm: Skin is intact, is healthy with good turgor, Skin is dry, Skin is pink, warm \T\ dry. normal. 18:05 Reassessment: Pt to XRAY not VIA stretcher. ss 18:06 Reassessment: Patient appears in no apparent distress at this time. Patient and/or ss family updated on plan of care and expected duration. Pain level reassessed. Patient is alert, oriented x 3, equal unlabored respirations, skin warm/dry/pink. Pt reports that just after medication administration that his pain is now 0/10 from 8/10 Patient denies pain at this time. Patient states symptoms have improved. 19:00 Reassessment: Patient appears in no apparent distress at this time. Patient and/or jd3 family updated on plan of care and expected duration. Pain level reassessed. Patient is alert, oriented x 3, equal unlabored respirations, skin warm/dry/pink. 20:05 Reassessment: Patient appears in no apparent distress at this time. Patient and/or jd3 family updated on plan of care and expected duration. Pain level reassessed. Patient is alert, oriented x 3, equal unlabored respirations, skin warm/dry/pink. report given to Catrachita SUMMERS. Vital Signs: 17:33 BP 115 / 60; Pulse 92; Resp 18; Pulse Ox 96% on R/A; Pain 4/10; ss 18:05 Temp 97.9(O); ss 18:05 Pain 0/10; ss 19:15 Weight 85.28 kg; ss 19:57 BP 125 / 83; Pulse 67; Resp 16 S; Pulse Ox 99% on R/A; jd3 ED Course: 17:33 Patient arrived in ED. ss 17:33 Ian Rhoades MD is Attending Physician. [facility] 17:33 Patient has correct armband on for positive identification. Placed in gown. Bed in low ss position. Call light in reach. Side rails up X 1. chicken cleaner on. Pulse ox on. NIBP on. 17:33 Patient maintains SpO2 saturation greater than 95% on room air. ss 17:35 Triage completed. ss 17:35 Arm band placed on right wrist. ss 17:36 Maintain EMS IV. Dressing intact. Good blood return noted. Site clean \T\ dry. Gauge \T\ ss site: 18 gauge R AC. 17:54 XRAY Chest (1 view) In Process Unspecified. EDMS 18:03 Julissa Rico, MELINA is Primary Nurse. ss 18:08 CT Head Brain wo Cont In Process Unspecified. EDMS 18:11 Heidi Orozco MD is Hospitalizing Provider. [facility] 19:29 No provider procedures requiring assistance completed. Patient admitted, IV remains in ss place. Administered Medications: 17:50 Drug: NS 0.9% 1000 ml Route: IV; Rate: 125 ml/hr; Site: right antecubital; ss 20:11 Follow up: Response: No adverse reaction; IV Status: Infusion continued upon admission jd3 18:01 Drug: Zofran (Ondansetron) 4 mg Route: IVP; Site: right antecubital; ss 19:10 Follow up: Response: No adverse reaction ss 18:03 Drug: morphine 2 mg Route: IVP; Site: right antecubital; ss 19:10 Follow up: Response: No adverse reaction; Pain is decreased ss 18:04 Drug: Tylenol 1000 mg Route: PO; ss 19:10 Follow up: Response: No adverse reaction; Pain is decreased ss 19:56 Drug: Pepcid 20 mg Route: IVP; Site: right antecubital; jd3 20:10 Follow up: Response: No adverse reaction jd3 19:56 Drug: Lovenox 1 mg/kg Route: Sub-Q; Site: abdomen; jd3 20:10 Follow up: Response: No adverse reaction jd3 19:57 Drug: Lopressor (metoprolol TARTRATE) 50 mg Route: PO; jd3 20:10 Follow up: Response: No adverse reaction jd3 Outcome: 18:12 Decision to Hospitalize by Provider. paige 19:29 Instructed on the need for admit. ss 19:57 Condition: stable jd3 20:09 Admitted to Med/surg accompanied by nurse, room 216, with chart, Report called to eliel Titus RN 20:16 Patient left the ED. eliel Signatures: Dispatcher [employer] Ian Rogers MD MD cha Smirch, Shelby RN Dat Navarrete RN RN jd3
--- NOTE | 2020-07-27 18:18 | RAD REPORT ---
EXAM DESCRIPTION: Sylwia Single View07/27/2020 5:53 pm CLINICAL HISTORY: Chest pain COMPARISON: 2019 FINDINGS: The lungs appear clear of acute infiltrate. The heart is normal size IMPRESSION: No acute abnormalities displayed
--- NOTE | 2020-07-27 18:24 | RAD REPORT ---
EXAM DESCRIPTION: CT - Head Brain Wo Cont - 07/27/2020 6:07 pm CLINICAL HISTORY: Headache COMPARISON: None. TECHNIQUE: Computed axial tomography of the head was obtained. IV contrast was not requested. All CT scans are performed using dose optimization technique as appropriate and may include automated exposure control or mA/KV adjustment according to patient size. FINDINGS: An intracranial bleed is not seen . The ventricles are normal in caliber. No extra-axial fluid collection is noted. Fluid within the sinuses/ mastoids is not seen. IMPRESSION: No acute intracranial abnormality is seen. If patient's symptoms persist MRI of the bra in would be recommended.
[2020-07-27] MEDS ORDERED: ACETAMINOPHEN 500 MG TAB PO PRN (19:08)
[2020-07-27] MEDS ORDERED: ONDANSETRON 4 MG/2 ML VIAL IV PRN (19:08)
[2020-07-27] MEDS ORDERED: ALBUTEROL 2.5 MG/3 ML NEB SOL NEB PRN (19:08)
[2020-07-27] MEDS ORDERED: MORPHINE 2 MG/ML SYR IV PRN (19:08)
[2020-07-27] MEDS ORDERED: HYDRALAZINE HCL 20 MG/ML VIAL IV PRN (19:11)
[2020-07-27] MEDS ORDERED: PANTOPRAZOLE 40MG TABLET PO SCH (19:11)
[2020-07-27] MEDS ORDERED: MELATONIN 5 MG TABLET PO PRN (19:11)
[2020-07-27] MEDS ORDERED: MAGNES/ALUMIN/SIMET 30ML UCUP PO ONE (19:14)
--- NOTE | 2020-07-27 19:23 | P.HP ---
Certification for Inpatient With expected LOS: >2 Midnights Patient will require the following post-hospital care: None Practitioner: I am a practitioner with admitting privileges, knowledge of patient current condition, hospital course, and medical plan of care. Services: Services provided to patient in accordance with Admission requirements found in Title 42 Section 412.3 of the Code of Federal Regulations Patient History Date of Service: 07/27/20 Reason for admission: chest pain History of Present Illness: 50-year-old male with past medical history of hypothyroidism, GERD on Protonix, status post cholecystectomy history of chronic tobacco use admitted for left-sided chest pain onset a about 3 days ago intermittent, left-sided, and radiating to the neck and down to the arm. He described the pain as someone applying pliers to his heart and twisting . Patient states his symptoms usually resolve after 5 min but frequency has gradually been increasing. He had multiple episodes last night distal BD sleep. 2D on his way to the emergency room he was attempting to ride his bike but felt very weak and and had to return after only 10 min ride , as against usual over 30 mins daily ride. He was driven to the emergency room by the spouse. Patient denies any shortness of breath. He had multiple doses of aspirin as well as nitroglycerin with no resolution of the pain. He still complain of pain symptoms now. He states the pain also intermittently radiates to his epigastric area. He states he is compliant with his Protonix use. He denies any history of hypertension or diabetes. He has a family history of coronary artery disease in his for the whole had heart attack in setting of cancer and diabetes in his 60s. Patient has never had any stress tests. Of note review of record shows when he was admitted and treated in the ER for similar chest pain 3 weeks ago. He describes history of intermittent nasal congestion, headaches and dizziness since the last 1 month. Seems to appeared to be worse with movement of the head. He has also noticed decreasing his hearing due to the dizziness. In the ER today EKG was unremarkable and unchanged from 3 weeks ago. Initial set of cardiac enzymes were negative. Head CT obtained was also negative for any acute intracranial pathology. He has been admitted for rule out acute coronary syndrome with possible unstable angina Allergies No Known Allergies Allergy (Verified 08/18/18 14:16) Home Medications: Levothyroxine [Synthroid*] 1 tab PO DAILY 10/03/16 Albuterol Neb [Proventil 0.083% Neb Soln] 2.5 mg NEB PRN PRN 08/18/18 Cyclobenzaprine [Flexeril*] 10 mg PO BEDTIME 08/18/18 Trazodone [Desyrel*] 50 mg PO BEDTIME 08/18/18 - Past Medical/Surgical History Diabetic: No -: Hypothyroidism -: GERD -: COPD -: Glaucoma -: BPH -: Tobacco abuse -: Left inguinal hernia repair -: Ankle surgery Psychosocial/ Personal History: He is , has 1 child, he does not work. He is currently disabled. - Family History Mother -: Cancer (Lung and brain cancer) Father -: Lung disease (Asbestosis), Cancer - Social History Alcohol use: No CD- Drugs: No Caffeine use: Yes Review of Systems General: Weakness, Unremarkable Eyes: Vision Change ENT: Nose Congestion Respiratory: Unremarkable Cardiovascular: Chest Pain, Light Headedness Gastrointestinal: Abdominal Pain, Diarrhea Genitourinary: Unremarkable Musculoskeletal: Unremarkable Integumentary: Unremarkable Neurological: Weakness, Unremarkable Physical Examination - Physical Exam General: Alert, In no apparent distress, Oriented x3 HEENT: Atraumatic, Normocephalic, PERRLA, Other (poor dentition) Neck: Supple, 2+ carotid pulse no bruit, JVD not distended Respiratory: Clear to auscultation bilaterally, Normal air movement, Other (marked reproducible anterior chest wall tenderness) Cardiovascular: Normal pulses, Regular rate/rhythm, Normal S1 S2 Capillary refill: <2 Seconds Gastrointestinal: Normal bowel sounds, Soft and benign, Non-distended, Tenderness (over epigastric area ) Musculoskeletal: No clubbing, No swelling Integumentary: No rashes, No breakdown Neurological: Normal gait, Normal speech, Normal strength at 5/5 x4 extr, Normal tone, Sensation intact, Cranial nerves 3-12 intact - Studies Laboratory Data (last 24 hrs) 07/27/20 17:39: WBC 8.6, Hgb 14.3, Hct 42.3, Plt Count 248 07/27/20 17:39: Sodium 142, Potassium 3.8, BUN 15, Creatinine 1.34 H, Glucose 142 H, Magnesium 2.1, Total Bilirubin 0.5, AST 22, ALT 56, Alkaline Phosphatase 70, Lipase 93 Imagings Data: EXAM DESCRIPTION: CT - Head Brain Wo Cont - 07/27/2020 6:07 pm CLINICAL HISTORY: Headache COMPARISON: None. TECHNIQUE: Computed axial tomography of the head was obtained. IV contrast was not requested. All CT scans are performed using dose optimization technique as appropriate and may include automated exposure control or mA/KV adjustment according to patient size. FINDINGS: An intracranial bleed is not seen . The ventricles are normal in caliber. No extra-axial fluid collection is noted. Fluid within the sinuses/ mastoids is not seen. IMPRESSION: No acute intracranial abnormality is seen. If patient's symptoms persist MRI of the brain would be recommended. CXR -unremarkable EKG -NSR at 86bpm , no ST changes Assessment and Plan - Problems (Diagnosis) (1) Menieres syndrome Current Visit: Yes Status: Acute (2) Chest pain Current Visit: No Status: Active (3) Abdominal pain Onset Date: 10/05/16 Current Visit: No Status: Acute Qualifiers: Abdominal location: periumbilical Qualified Code(s): R10.33 - Periumbilical pain (4) GERD (gastroesophageal reflux disease) Onset Date: 10/05/16 Current Visit: No Status: Chronic Qualifiers: Esophagitis presence: without esophagitis Qualified Code(s): K21.9 - Gastro-esophageal reflux disease without esophagitis (5) Hypothyroidism Onset Date: 10/05/16 Current Visit: No Status: Chronic Qualifiers: Hypothyroidism type: acquired Qualified Code(s): E03.9 - Hypothyroidism, unspecified (6) Tobacco abuse Onset Date: 10/05/16 Current Visit: No Status: Chronic Discharge Plan: Home Plan to discharge in: 48 Hours - Advance Directives Does patient have a Living Will: No Does patient have a Durable POA for Healthcare: No Physician Review: Patient Assessed, Agree with Above Assessment and Plan Physician Review Additional Text: # Atypical chest pain-possible for acute coronary syndrome with unstable angina -given reproducible chest pain pattern worrisome for musculoskeletal -Do serial set of cardiac enzymes. -Do nitro glycerine patch x1 now. -continue p.r.n. pain meds with morphine -since recurrent pattern of pain, will consult Cardiology, may need cardiac catheterization given tobacco use and mild family history LIZY score of 3 now -start aspirin 81 daily # history of culture with presumed gastritis We start Protonix in-increase to b.i.d. With dose Maalox x1 now May need EGD if cardiac catheterization negative #Hypothyroid disease-restart Synthroid, follow tsh #DVT prophylaxis-subcutaneous Lovenox # Recurrent headache and dizziness-may be due to Meniere's disease. Will do empirical meclizine use for now # chronic tobacco use-we do nicotine patch, tobacco cessation counseling done # Disposition-possible hospital stay for 24-48 hr Time Spent Managing Pts Care (In Minutes): 65
[2020-07-27] MEDS ORDERED: ENOXAPARIN 80 MG/0.8 ML SQ ONE (20:01)
[2020-07-27] MEDS ORDERED: METOPROLOL TAR 50 MG TAB ONE (20:01)
[2020-07-27] MEDS ORDERED: FAMOTIDINE 20 MG/2 ML VIAL IV ONE (20:01)
[2020-07-27 20:08] LABS: Thyroid Stimulating Hormone 0.819 uIU/mL (0.360-3.740)
[2020-07-27 20:57] VITALS: BMI 27.7
[2020-07-27] MEDS ORDERED: TRAZODONE 50 MG TABLET PO SCH (21:00)
[2020-07-27] MEDS ORDERED: CYCLOBENZAPRINE 10 MG TAB PO SCH (21:00)
[2020-07-27] MEDS: MECLIZINE HCL 12.5 MG TAB PO SCH (21:16)
[2020-07-27 22:52] LABS: Barbiturates NEGATIVE (NEGATIVE); Benzodiazepines NEGATIVE (NEGATIVE); Cocaine NEGATIVE (NEGATIVE); METHAMPHETAM NEGATIVE (NEGATIVE); Methadone NEGATIVE (NEGATIVE); Opiates POSITIVE (NEGATIVE); Phencyclidine NEGATIVE (NEGATIVE); THC Cannibis NEGATIVE (NEGATIVE)
[2020-07-28 04:23] LABS: Urine Protein/Creatinine Ratio 0.09 ratio (<0.15)
[2020-07-28 05:36] VITALS: TEMP 97.6
[2020-07-28 05:50] LABS: Absolute Lymphocytes (CBC) 3.3 K/uL (0.7-4.9); Basophils % 0.2 % (0-1.3); Hematocrit 40.1 % (39.6-49.0); Lymphocytes % 44.3 % (15.3-44.8); MPV 9.5 fL (7.6-11.3); RBC Red Blood Cell Count 4.36 M/uL (4.33-5.43)
[2020-07-28 06:15] LABS: Albumin 3.4 g/dL (3.4-5.0); Bilirubin Total 0.5 mg/dL (0.2-1.0); Potassium 4.1 mmol/L (3.5-5.1); Protein, Total 6.4 g/dL (6.4-8.2); Uric Acid 6.3 mg/dL (3.5-7.2)
[2020-07-28] MEDS ORDERED: LEVOTHYROXINE SOD 0.088 MG TAB PO SCH ×3 (06:30→09:00)
[2020-07-28] MEDS ORDERED: ALBUTEROL 2.5 MG/3 ML NEB SOL NEB PRN (06:46)
[2020-07-28] MEDS ORDERED: PANTOPRAZOLE 40MG TABLET PO SCH (07:30)
[2020-07-28] MEDS: MECLIZINE HCL 12.5 MG TAB PO SCH (08:37)
[2020-07-28] MEDS ORDERED: NICOTINE 21 MG/PAT TD SCH (09:00)
[2020-07-28] MEDS ORDERED: ASPIRIN EC 81 MG TAB PO SCH (09:00)
[2020-07-28] MEDS ORDERED: NITROGLYCERIN 0.2 MG/HR (5 MG) PATCH TD SCH (09:00)
[2020-07-28] MEDS ORDERED: ENOXAPARIN 40 MG/0.4 ML SQ SCH (09:00)
[2020-07-28 09:16] LABS: Creatine Phosphokinase 85 U/L (39-308); Troponin I < 0.02 ng/mL (0.0-0.045)
[2020-07-28 09:57] VITALS: BP 121/82
--- NOTE | 2020-07-28 11:12 | P.DS ---
Admission Date: 07/27/20 Discharge Date: 07/28/20 Disposition: ROUTINE DISCHARGE Discharge Condition: GOOD Reason for Admission: chest pain Brief History of Present Illness: Please refer to H&P Hospital Course: Patient is a 50 year old male with a PMH of HTN, HLD admitted overnight for chest pain. ACS was ruled out. He was cleared by cardiology for discharge. Vital Signs/Physical Exam: Temp Pulse Resp BP Pulse Ox 97.6 F 69 18 121/82 98 07/28/20 08:00 07/28/20 09:55 07/28/20 09:08 07/28/20 09:55 07/28/20 09:08 General: Alert, In no apparent distress, Cooperative HEENT: Atraumatic, Normocephalic, EOMI Neck: Supple Respiratory: Clear to auscultation bilaterally, Normal air movement Cardiovascular: No edema, Normal pulses, Regular rate/rhythm, Normal S1 S2 Gastrointestinal: Normal bowel sounds, Soft and benign, Non-distended Musculoskeletal: No clubbing, No swelling, No contractures, No erythema, No tenderness, No warmth Neurological: Normal speech, Sensation intact, Normal affect Laboratory Data at Discharge: WBC 7.5 K/uL (4.3-10.9) 07/28/20 05:12 Hgb 13.7 g/dL (13.6-17.9) 07/28/20 05:12 Hct 40.1 % (39.6-49.0) 07/28/20 05:12 Plt Count 201 K/uL (152-406) 07/28/20 05:12 Sodium 142 mmol/L (136-145) 07/28/20 05:12 Potassium 4.1 mmol/L (3.5-5.1) 07/28/20 05:12 BUN 14 mg/dL (7-18) 07/28/20 05:12 Creatinine 1.13 mg/dL (0.55-1.3) 07/28/20 05:12 Glucose 87 mg/dL (74-106) 07/28/20 05:12 Uric Acid 6.3 mg/dL (3.5-7.2) 07/28/20 05:12 Magnesium 2.1 mg/dL (1.8-2.4) 07/27/20 17:39 Total Bilirubin 0.5 mg/dL (0.2-1.0) 07/28/20 05:12 AST 24 U/L (15-37) 07/28/20 05:12 ALT 50 U/L (12-78) 07/28/20 05:12 Alkaline Phosphatase 57 U/L (45-117) 07/28/20 05:12 Troponin I < 0.02 ng/mL (0.0-0.045) 07/28/20 08:45 Lipase 93 U/L (73-393) 07/27/20 17:39 Home Medications: Albuterol Neb [Proventil 0.083% Neb Soln] 2.5 mg NEB PRN PRN 08/18/18 Trazodone [Desyrel*] 50 mg PO BEDTIME 08/18/18 Cyclobenzaprine HCl [Flexeril] 1 tab PO BEDTIME 07/27/20 Levothyroxine [Synthroid*] 1 tab PO DAILY 07/27/20 Pantoprazole [Protonix Tab*] 1 tab PO DAILY 07/27/20 Albuterol Neb [Proventil 0.083% Neb Soln] 2.5 mg NEB Q6HP PRN amp 07/28/20 Aspirin [Aspirin EC 81 MG] 81 mg PO DAILY #30 tablet. 07/28/20 Atorvastatin Calcium 40 mg PO DAILY #30 tablet 07/28/20 Meclizine HCl [Antivert*] 25 mg PO BID tab 07/28/20 Melatonin 10 mg PO BEDTIME PRN PRN tablet 07/28/20 New Medications: Aspirin [Aspirin EC 81 MG] 81 mg PO DAILY #30 tablet. Atorvastatin Calcium 40 mg PO DAILY #30 tablet Diet: AHA
[2020-07-28 12:09] VITALS: O2SAT 97
[2020-07-28] MEDS ORDERED: CYCLOBENZAPRINE 10 MG TAB PO SCH (21:00)
--- NOTE | 2020-07-29 00:13 | CON ---
Date of Consultation: 07/28/2020 Reason For Consultation: Elevated BUN and creatinine. History Of Present Illness: This is a 50-year-old gentleman with significant past medical history of hypothyroidism, GERD, came to the hospital complaining of chest pain, typical. The patient's primary workup showed elevation in BUN and creatinine. For that reason, we have been consulted. The patient denied taking any nonsteroidal. No IV contrast. No recent change in his medication. Upon arrival to the hospital, creatinine 1.3. The patient was started on hydration. Creatinine down to 1.1 with GFR of 68. Allergies: NO KNOWN DRUG ALLERGIES. Home Medications: Include levothyroxine, albuterol, Flexeril, trazodone. Past Medical History: Include GERD, hypothyroidism, benign prostatic hypertrophy. Past Surgical History: Include ankle surgery, left inguinal hernia repair. Family History: Positive for hypertension and cancer. Social History: Denies smoking. Denies drinking. Denies drug abuse. Review of Systems: Head and Neck: No red eye. No ear pain. GI: No nausea. No vomiting. : He has nocturia. 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 Respiratory: No shortness of breath. Cardiovascular: He has chest pain. Endocrine: No polydipsia. Skin: No rash. Physical Examination: Vital Signs: When I saw the patient, blood pressure of 121/82, pulse of 69, afebrile. Chest: Clear to auscultation. Heart: S1, S2. Regular. Abdomen: Soft, nontender. Extremities: No edema. Neurologic: Alert and oriented x3. Nonfocal. Laboratory Data: Upon admission, creatinine 1.3, GFR of 56. Current lab data, sodium 142, potassium 4.1, bicarb 28, BUN 14, creatinine 1.1, GFR 68, uric acid 6.3, calcium 8.5, TSH 0.8, PC ratio 0.09. Current Medications: Include aspirin, albuterol, Tylenol, levothyroxine, melatonin, nitroglycerin, pantoprazole, trazodone. Assessment And Plan: 1. Acute kidney injury secondary to prerenal, secondary to dehydration, resolved. I am going to discontinue IV fluid. The patient cleared from the renal standpoint for discharge planning. 2. Hypertension, currently controlled, optimal. Hold all blood pressure medication. 3. Chest pain as by primary. Time spent coordinating the care, discuss him with all of our team members including othere internal control consultant and hospitalist and [id number] with the patient and please go out of 45 min SAPPHIRE Voice ID: [id number] Report ID: [id number] MTDD
[2020-07-29] MEDS ORDERED: LEVOTHYROXINE SOD 0.088 MG TAB PO SCH (06:30)
[2020-07-29] MEDS ORDERED: PANTOPRAZOLE 40MG TABLET PO SCH (07:00)
--- NOTE | 2020-07-29 07:46 | EKG ---
Test Date: 2020-07-27 Test Time: 17:37:57 Buffet Runner: YANA MEASUREMENT RESULTS: Intervals: Rate: 86 OH: 164 QRSD: 84 QT: 336 QTc: 402 [place]: P: 31 OH: 164 QRS: 18 T: 38 INTERPRETIVE STATEMENTS: Normal sinus rhythm Normal ECG Compared to ECG 06/18/2020 22:21:55 No significant changes Electronically Signed On 07-29-20 07:43:14 CDT by Zack Tong
--- NOTE | 2020-07-29 10:09 | CON ---
Date of Consultation: 07/28/2020 Reason For Consultation: Chest pain. History Of Present Illness: Mr. Kelley is a 50-year-old male who has a history of COPD, chronic back pain, hypothyroidism, and glaucoma. Has had a cholecystectomy in the past and hernia surgery in the past, but no previous cardiac history. He had a heart catheterization few years ago that was normal. He came in with a sensation of what he describes as a plier like chest pain in the midsternal area that did not radiate. It was not exertional. It was not related to food, body position or time of he day. There were no nausea, vomiting, diaphoresis, PND, orthopnea, pedal edema, palpitations, or s yncope. FL has been ruled out. Past Medical History: As stated above. Allergies: NONE. Review of Systems: Negative. Social History: Positive for tobacco. Family History: Noncontributory. Medications: At home include inhalers, Synthroid, Protonix, Desyrel. Physical Examination: Vital Signs: Stable. He was afebrile. HEENT: Negative. Neck: Supple without any bruit, lymphadenopathy, JVD, or thyromegaly. Chest: Clear to auscultation and percussion. Cardiac: Revealed a regular rhythm and rate. No murmurs, gallops, or rubs. Abdomen: Benign. Extremities: Revealed no clubbing, cyanosis, or edema. Diagnostic Data: His EKG was normal. Chest x-ray was normal. Creatinine was 1.34. CPKs, MBs, and troponin were negative. Impression And Plan: 1.Atypical chest pain. Myocardial infarction had been ruled out. Normal EKG. Normal x-ray. Sympt oms are most suggestive of gastroesophageal reflux disease. Nevertheless, he has some risk factors i ncluding tobacco use and I think an outpatient stress test and an echocardiogram are reasonable and I will make an arrangement for those but he can go home whenever it is okay with Dr. Cain. 2.Chronic obstructive pulmonary disease. 3.Hypothyroidism. 4.Renal insufficiency. Nephrology consultation is pending. ELSA/ANA Voice ID: [id number] Report ID: [id number]
== END 2020-07-28 12:02 | disposition home or self-care (01) ==
LOC: ER 17:29 → ERHOLD 19:41 → INTOOBSV 19:41 → 2ND 20:10
PROVIDERS: ADMIT Internal Medicine; ATTEND Internal Medicine
DX: R07.89 Other chest pain (principal); N17.9 Acute kidney failure, unspecified; E86.0 Dehydration; Z20.828 Contact with and (suspected) exposure to other viral communicable diseases; J44.9 Chronic obstructive pulmonary disease, unspecified; M54.9 Dorsalgia, unspecified; G89.29 Other chronic pain; E03.9 Hypothyroidism, unspecified; H40.9 Unspecified glaucoma; K21.9 Gastro-esophageal reflux disease without esophagitis; N40.0 Benign prostatic hyperplasia without lower urinary tract symptoms; I10 Essential (primary) hypertension; E78.5 Hyperlipidemia, unspecified; Z72.0 Tobacco use
CPT/HCPCS: 96361; 93005; 85025 ×2; 80048; 36415 ×2; 83735; 82550 ×2; 84300; 80076; 84550; 80307 ×8; 84443; 82570; 84484 ×3; 83690; 80053; 83880; 84156; 70450; 71045; 96375; 96372; 96374; 99285; U0002; J1650; J2270 ×2; J7030; J2405; G0378 ×3

== ENCOUNTER 2020-11-24 17:27 | Emergency (ER) | payer OTHER ==
[2020-11-24 18:27] LABS: Absolute Lymphocytes (CBC) 2.5 K/uL (0.7-4.9); Basophils % 0.8 % (0-1.3); Hematocrit 39.2 % (39.6-49.0); Lymphocytes % 22.8 % (15.3-44.8); MPV 9.8 fL (7.6-11.3); RBC Red Blood Cell Count 4.31 M/uL (4.33-5.43)
[2020-11-24] MEDS ORDERED: MORPHINE 4 MG/ML SYR ONE (18:30)
[2020-11-24] MEDS ORDERED: ONDANSETRON 4 MG/2 ML VIAL ONE (18:31)
[2020-11-24 18:33] LABS: Protime INR 0.98
--- NOTE | 2020-11-24 18:35 | RAD REPORT ---
EXAM DESCRIPTION: RAD - Chest Single View - 11/24/2020 6:05 pm CLINICAL HISTORY: CHEST PAIN Chest pain. COMPARISON: Chest Single View dated 07/27/2020; Chest Single View dated 07/20/2019; Chest Single View dated 12/16/2018; Chest Pa And Lat (2 Views) dated 08/18/2018 FINDINGS: Portable technique limits examination quality. The lungs are grossly clear. The heart is normal in size. No displaced fractures. IMPRESSION: No acute intrathoracic process suspected.
[2020-11-24 18:46] LABS: ALT/SGPT 52 U/L (12-78); AST/SGOT 23 U/L (15-37); Albumin 3.9 g/dL (3.4-5.0); Alkaline Phosphatase 62 U/L (45-117); BUN Blood Urea Nitrogen 16 mg/dL (7-18); Bicarbonate 28 mmol/L (21-32); Bilirubin Direct 0.1 mg/dL (0-0.2); Bilirubin Total 0.4 mg/dL (0.2-1.0); Glucose Level 126 mg/dL (74-106); Magnesium 1.7 mg/dL (1.8-2.4); NT PRO-BNP 29 pg/mL (<125); Potassium 3.5 mmol/L (3.5-5.1); Sodium Level 141 mmol/L (136-145); Troponin (Emerg Dept Use Only) < 0.02 ng/mL (0.0-0.045)
--- NOTE | 2020-11-24 19:14 | ER ---
Nurse's Notes [facility] Name: Chi Kelley Age: 50 yrs Sex: Male : 1970 Arrival Date: 11/24/2020 Time: 17:29 Bed 19 Private MD: Diagnosis: Chest pain, unspecified Presentation: 11/24 17:37 Chief complaint: EMS states: patient called from home stating that he woke up feeling zb bad has a left sided nodule that was found in AUG 2020. pain will shoot from his neck to head and radiated down his left arm. patient also c/o of pain with inspiration, mild shortness of breath. patient states he has some difficult with taste. Coronavirus screen: Client presents with at least one sign or symptom that may indicate coronavirus-19. Standard/surgical mask placed on the client. Provider contacted for isolation considerations. Ebola Screen: No symptoms or risks identified at this time. Initial Sepsis Screen: Does the patient meet any 2 criteria? No. Patient's initial sepsis screen is negative. Does the patient have a suspected source of infection? No. Patient's initial sepsis screen is negative. Risk Assessment: Do you want to hurt yourself or someone else? Patient reports no desire to harm self or others. Onset of symptoms is unknown. 17:37 Acuity: DORIAN 3 zb 17:37 Method Of Arrival: EMS: [facility] zb Triage Assessment: 17:37 General: Appears in no apparent distress. uncomfortable, unkempt, Behavior is calm, zb cooperative, appropriate for age. Pain: Complains of pain in face and left arm and mid-sternal area Pain radiates to top of head Pain currently is 9 out of 10 on a pain scale. EENT: No signs and/or symptoms were reported regarding the EENT system. Neuro: Level of Consciousness is awake, alert, obeys commands, Oriented to person, place, time, situation. Cardiovascular: Heart tones S1 S2 present Capillary refill < 3 seconds Patient's skin is warm and dry. Respiratory: Airway is patent Respiratory effort is even, unlabored, Respiratory pattern is regular, symmetrical. GI: Abdomen is flat, non-distended, Bowel sounds present X 4 quads. : No signs and/or symptoms were reported regarding the genitourinary system. Derm: Skin is intact, is healthy with good turgor, Skin is dry, Skin is normal, Skin temperature is warm. Musculoskeletal: Circulation, motion, and sensation intact. Capillary refill < 3 seconds, in bilateral fingers. Range of motion: intact in all extremities. Historical: - Allergies: 17:43 No Known Allergies; zb - Home Meds: 17:43 Flexeril 10 mg Oral tab 1 tab daily [Active]; trazodone 50 mg Oral tab 1 tab nightly zb [Active]; - PMHx: 17:43 chronic back pain; COPD; Glaucoma; Hypothyroidism; zb - PSHx: 17:43 Cholecystectomy; Hernia repair; zb - Immunization history:: Adult Immunizations up to date. - Social history:: Smoking status: Patient reports the use of cigarette tobacco products, denies chronic smoking, but will smoke occasionally. Screenin:12 Abuse screen: Denies threats or abuse. Denies injuries from another. Nutritional zb screening: No deficits noted. Tuberculosis screening: No symptoms or risk factors identified. Fall Risk None identified. Assessment: 17:35 Reassessment: see triage note for initial assessment. zb 18:35 Reassessment: Patient appears in no apparent distress at this time. Patient and/or zb family updated on plan of care and expected duration. Pain level reassessed. Patient is alert, oriented x 3, equal unlabored respirations, skin warm/dry/pink. pt given pain medication. currently appears to be resting. 18:42 Pain: Pain began aug 2020. zb 19:35 Pain: Denies pain. mg2 Vital Signs: 17:37 BP 134 / 79; Pulse 86; Resp 16; Temp 97.5; Pulse Ox 100% on R/A; Weight 83.91 kg; zb Height 5 ft. 9 in. (175.26 cm); Pain 9/10; 18:41 BP 125 / 83; Pulse 70; Resp 16; Pulse Ox 100% on R/A; zb 19:34 BP 125 / 72; Pulse 75; Resp 18; Pulse Ox 100% on R/A; Pain 0/10; mg2 17:37 Body Mass Index 27.32 (83.91 kg, 175.26 cm) zb ED Course: 17:29 Patient arrived in ED. zb 17:30 Luis Angel Suazo NP is PHCP. pm1 17:30 Yassine Jauregui MD is Attending Physician. pm1 17:37 Nusrat Kelley, RN is Primary Nurse. zb 17:43 Triage completed. zb 17:50 EKG completed in triage. Results shown to MD. zb 18:03 XRAY Chest (1 view) Sent. zb 18:04 XRAY Chest (1 view) In Process Unspecified. EDMS 18:11 Inserted saline lock: 20 gauge in right antecubital area, using aseptic technique. zb Blood collected. 18:12 Patient maintains SpO2 saturation greater than 95% on room air. zb 18:12 Patient has correct armband on for positive identification. ekg monitor on. Pulse zb ox on. NIBP on. Door closed. Noise minimized. Warm blanket given. 18:41 Arm band placed on. zb 19:34 No provider procedures requiring assistance completed. IV discontinued, intact, mg2 bleeding controlled, No redness/swelling at site. Pressure dressing applied. Administered Medications: 18:18 Drug: morphine 4 mg Route: IVP; Site: right antecubital; zb 18:18 Drug: Zofran (Ondansetron) 4 mg Route: IVP; Site: right antecubital; zb Outcome: 19:14 Discharge ordered by MD. pm1 19:35 Discharged to home ambulatory. mg2 19:35 Condition: stable 19:35 Discharge instructions given to patient, Instructed on discharge instructions, follow up and referral plans. medication usage, Demonstrated understanding of instructions, follow-up care, medications, Prescriptions given X 1. 19:35 Patient left the ED. mg2 Signatures: Dispatcher [employer] EDFL Luis Angel Suazo, ANALI IRISH MOSS OPERATOR pm1 Shun Davey, MELINA RN mg2 Nusrat Kelley, MELINA RN zb
--- NOTE | 2020-11-24 19:14 | EDPHYS ---
Physician Documentation [facility] Name: Chi Kelley Age: 50 yrs Sex: Male : 1970 Arrival Date: 11/24/2020 Time: 17:29 Bed 19 Private MD: ED Physician Yassine Jauregui HPI: 11/24 18:02 This 50 yrs old Male presents to ER via EMS with complaints of Chest Pain, pm1 Headache. 18:02 The patient or guardian reports chest pain that is located primarily in the mid-sternal pm1 area. Onset: 3 day(s) ago, constant. The pain radiates to head and left arm. Associated signs and symptoms: Pertinent positives: cough, headache, shortness of breath, Pertinent negatives: abdominal pain, diaphoresis, dizziness, nausea, vomiting. The chest pain is described as aching. Duration: The patient or guardian reports a single episode, constant for the past 3 days. On and off since August. Modifying factors: The symptoms are alleviated by nothing. the symptoms are aggravated by deep breath. Severity of pain: in the emergency department the pain is unchanged. The patient has experienced similar episodes in the past, multiple times. It is unknown whether or not the patient has recently seen a physician. Historical: - Allergies: 17:43 No Known Allergies; zb - Home Meds: 17:43 Flexeril 10 mg Oral tab 1 tab daily [Active]; trazodone 50 mg Oral tab 1 tab nightly zb [Active]; - PMHx: 17:43 chronic back pain; COPD; Glaucoma; Hypothyroidism; zb - PSHx: 17:43 Cholecystectomy; Hernia repair; zb - Immunization history:: Adult Immunizations up to date. - Social history:: Smoking status: Patient reports the use of cigarette tobacco products, denies chronic smoking, but will smoke occasionally. ROS: 18:02 Constitutional: Negative for fever, chills, and weight loss, Neck: Negative for injury, pm1 pain, and swelling. 18:02 Abdomen/GI: Negative for abdominal pain, nausea, vomiting, diarrhea, and constipation, Back: Negative for injury and pain, MS/Extremity: Negative for injury and deformity, Skin: Negative for injury, rash, and discoloration. 18:02 Cardiovascular: Positive for chest pain, Negative for edema, orthopnea, palpitations. 18:02 Respiratory: Positive for cough, shortness of breath. 18:02 Neuro: Positive for headache, Negative for numbness, tingling, weakness. Exam: 18:02 Constitutional: This is a well developed, well nourished patient who is awake, alert, pm1 and in no acute distress. Head/Face: Normocephalic, atraumatic. Chest/axilla: Normal chest wall appearance and motion. Nontender with no deformity. No lesions are appreciated. Cardiovascular: Regular rate and rhythm with a normal S1 and S2. No gallops, murmurs, or rubs. Normal PMI, no JVD. No pulse deficits. Respiratory: Lungs have equal breath sounds bilaterally, clear to auscultation and percussion. No rales, rhonchi or wheezes noted. No increased work of breathing, no retractions or nasal flaring. 18:02 Back: No spinal tenderness. No costovertebral tenderness. Full range of motion. Skin: Warm, dry with normal turgor. Normal color with no rashes, no lesions, and no evidence of cellulitis. MS/ Extremity: Pulses equal, no cyanosis. Neurovascular intact. Full, normal range of motion. 18:02 Abdomen/GI: Exam negative for acute changes, Inspection: abdomen appears normal, Palpation: abdomen is soft and non-tender, in all quadrants. 18:02 Neuro: Exam negative for acute changes, Orientation: is normal, Mentation: is normal, Motor: is normal, moves all fours. Vital Signs: 17:37 BP 134 / 79; Pulse 86; Resp 16; Temp 97.5; Pulse Ox 100% on R/A; Weight 83.91 kg; zb Height 5 ft. 9 in. (175.26 cm); Pain 9/10; 18:41 BP 125 / 83; Pulse 70; Resp 16; Pulse Ox 100% on R/A; zb 19:34 BP 125 / 72; Pulse 75; Resp 18; Pulse Ox 100% on R/A; Pain 0/10; mg2 17:37 Body Mass Index 27.32 (83.91 kg, 175.26 cm) zb MDM: 17:31 Patient medically screened. pm1 19:12 Data reviewed: vital signs. Data interpreted: Pulse oximetry: on room air is 100 %. pm1 Interpretation: normal. 19:12 Counseling: I had a detailed discussion with the patient and/or guardian regarding: the pm1 historical points, exam findings, and any diagnostic results supporting the discharge/admit diagnosis, lab results, radiology results, the need for outpatient follow up, to return to the emergency department if symptoms worsen or persist or if there are any questions or concerns that arise at home. 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 2019 last prescription for T3. pm1 19:35 ED course: Patient attributes pain to lymph node in his neck. Requesting pain pm1 medication for prescription. Advised patient to follow up with his PCP or ENT for further evaluation and treatment of lymph node since August of last yerar. 11/24 17:37 Order name: Basic Metabolic Panel; Complete Time: 19:08 pm1 11/24 17:37 Order name: CBC with Diff; Complete Time: 18:40 pm1 11/24 17:37 Order name: LFT's; Complete Time: 19:08 pm1 11/24 17:37 Order name: Magnesium; Complete Time: 19:08 pm1 11/24 17:37 Order name: NT PRO-BNP; Complete Time: 19:08 pm1 11/24 17:37 Order name: PT-INR; Complete Time: 18:40 pm1 11/24 17:37 Order name: Troponin (emerg Dept Use Only); Complete Time: 19:08 pm1 11/24 17:37 Order name: XRAY Chest (1 view); Complete Time: 18:40 pm1 11/24 17:37 Order name: EKG; Complete Time: 17:38 pm1 11/24 17:37 Order name: Cardiac monitoring; Complete Time: 18:03 pm1 11/24 17:37 Order name: EKG - Nurse/Tech; Complete Time: 18:03 pm1 11/24 17:37 Order name: IV Saline Lock; Complete Time: 18:11 pm1 11/24 17:37 Order name: Labs collected and sent; Complete Time: 18:11 pm1 11/24 17:37 Order name: O2 Per Protocol; Complete Time: 18:03 pm1 11/24 17:37 Order name: O2 Sat Monitoring; Complete Time: 18:03 pm1 EC:06 Rate is 76 beats/min. Rhythm is regular, Normal Sinus Rhythm with No ectopy. QRS [place] pm1 is Normal. No Q waves. T waves are Normal. No ST changes noted. Clinical impression: Normal ECG. Administered Medications: 18:18 Drug: morphine 4 mg Route: IVP; Site: right antecubital; zb 18:18 Drug: Zofran (Ondansetron) 4 mg Route: IVP; Site: right antecubital; zb Disposition: 11/25 09:44 Co-signature as Attending Physician, Yassine Jauregui MD. rn Disposition: 11/24/20 19:14 Discharged to Home. Impression: Chest pain, unspecified. - Condition is Stable. - Discharge Instructions: Nonspecific Chest Pain. - Prescriptions for Tylenol- Codeine #3 300-30 mg Oral Tablet - take 2 tablets by ORAL route every 6 hours As needed; 20 tablet. - Medication Reconciliation Form, Thank You Letter, Antibiotic Education, Prescription Opioid Use form. - Follow up: Emergency Department; When: As needed; Reason: Worsening of condition. Follow up: Private Physician; When: 2 - 3 days; Reason: Recheck today's complaints, Continuance of care, Re-evaluation by your physician. - Problem is new. - Symptoms have improved. Signatures: Dispatcher [employer] EDMS Yassine Jauregui MD MD rn Luis Angel Suazo, [employer]NA[employer]PARATUS REPAIR MECHANIC pm1 Shun Davey RN RN mg2 Nusrat Kelley RN RN zb Corrections: (The following items were deleted from the chart) 11/24 19:35 19:14 11/24/2020 19:14 Discharged to Home. Impression: Chest pain, unspecified. mg2 Condition is Stable. Forms are Medication Reconciliation Form, Thank You Letter, Antibiotic Education, Prescription Opioid Use. Follow up: Emergency Department; When: As needed; Reason: Worsening of condition. Follow up: Private Physician; When: 2 - 3 days; Reason: Recheck today's complaints, Continuance of care, Re-evaluation by your physician. Problem is new. Symptoms have improved. pm1
[2020-11-24 19:41] VITALS: TEMP 97.5; O2SAT 100
[2020-11-24 19:43] VITALS: BP 125/72
== END 2020-11-24 19:35 | disposition home or self-care (01) ==
LOC: ER 17:27
DX: R07.9 Chest pain, unspecified (principal); E03.9 Hypothyroidism, unspecified; J44.9 Chronic obstructive pulmonary disease, unspecified; F17.210 Nicotine dependence, cigarettes, uncomplicated
CPT/HCPCS: 93005; 85025; 80048; 36415; 83735; 85610; 80076; 84484; 83880; 71045; 96375; 96374; 99285; J2405

== ENCOUNTER 2021-12-20 16:05 | Emergency (ER) | payer OTHER ==
--- OUTSIDE RECORDS SUMMARY | 2021-12-20 16:06 | XMS REPORT | Continuity of Care Document ---
:1970 Author Organization [facility] t Address [address] [place] [address] Care Team Providers Name Role Phone Unavailable Unavailable Unavailable Problems This patient has no known problems. Allergies, Adverse Reactions, Alerts This patient has no known allergies or adverse reactions. Medications This patient has no known medications. Procedures This patient has no known procedures. Results This patient has no known results.
[2021-12-20] MEDS ORDERED: ONDANSETRON 4 MG/2 ML VIAL ONE (16:26)
[2021-12-20] MEDS ORDERED: MORPHINE 4 MG/ML SYR ONE (16:26)
[2021-12-20 16:33] LABS: Absolute Lymphocytes (CBC) 2.8 K/uL (0.7-4.9); Hematocrit 38.7 % (39.6-49.0); Lymphocytes % 26.8 % (15.3-44.8); MPV 9.2 fL (7.6-11.3); RBC Red Blood Cell Count 4.17 M/uL (4.33-5.43)
[2021-12-20 16:55] LABS: ALT/SGPT 33 U/L (12-78); AST/SGOT 14 U/L (15-37); Albumin 3.5 g/dL (3.4-5.0); Alkaline Phosphatase 73 U/L (45-117); BUN Blood Urea Nitrogen 11 mg/dL (7-18); Bicarbonate 25 mmol/L (21-32); Bilirubin Total 0.2 mg/dL (0.2-1.0); Glucose Level 151 mg/dL (74-106); Lipase 236 U/L (73-393); Protein, Total 6.7 g/dL (6.4-8.2); Sodium Level 143 mmol/L (136-145)
[2021-12-20 16:58] LABS: Bilirubin Direct < 0.1 mg/dL (0-0.2)
--- NOTE | 2021-12-20 17:16 | RAD REPORT ---
EXAM DESCRIPTION: US - Scrotum Testicles - 12/20/2021 5:07 pm CLINICAL HISTORY: right scrotal pain COMPARISON: No comparisons FINDINGS: The right testicle 4.3 x 2.2 x 3.4 cm with volume of 16.7 mL. No intratesticular masses or evidence of testicular torsion. The left testicle 4.4 x 2.2 x 3.3 cm with volume of 16.4 mL. No intratesticular masses or evidence of testicular torsion. Both epididymides are normal in size and appearance. No pathologic fluid collections. IMPRESSION: Bilateral testicular blood flow. No acute findings.
--- NOTE | 2021-12-20 17:41 | RAD REPORT ---
EXAM DESCRIPTION: CTAbdomen Pelvis W Contrast - 12/20/2021 5:16 pm CLINICAL HISTORY: right sided abdominal pain COMPARISON: <Comparisons> TECHNIQUE: CT of the abdomen and pelvis was performed. All CT scans are performed using dose optimization technique as appropriate and may include automated exposure control or mA/KV adjustment according to patient size. FINDINGS: Lower chest: No acute abnormality. Liver: No acute abnormality or suspicious lesions. Biliary: No biliary ductal dilatation. Cholecystectomy. Stomach: No significant focal abnormality. Duodenum: No significant focal abnormality. Pancreas: No significant abnormality. Spleen: No significant abnormality. Adrenal: No suspicious lesions. Kidney/ureter: No hydronephrosis. Nonobstructive nephrolithiasis . Retroperitoneum: No retroperitoneal adenopathy. Vascular: No aneurysm. Bowel: No significant focal abnormality. Normal appendix. Peritoneum: Trace pelvic free fluid. Surgical clips in the left inguinal region. Increased nonspecifi c mesenteric edema. Bladder: Grossly unremarkable. Reproductive: No adnexal masses. Bones: No acute fracture. Other: n/a IMPRESSION: Nonspecific increased mesenteric edema without clear etiology. It could represent an occ ult infectious or inflammatory process such as an enteritis.
--- NOTE | 2021-12-20 17:52 | ER ---
Nurse's Notes [facility] Name: Chi Kelley Age: 51 yrs Sex: Male : 1970 Arrival Date: 12/20/2021 Time: 16:07 Bed 2 Private MD: Diagnosis: Vomiting;Diarrhea, unspecified Presentation: 12/20 16:11 Chief complaint: EMS states: ABD pain x3 days with NVD. Stated hx of bowel obstruction. vg1 Coronavirus screen: Vaccine status: Patient reports being unvaccinated. Client denies travel out of the [place] in the last 14 days. Ebola Screen: Patient negative for fever greater than or equal to 101.5 degrees Fahrenheit, and additional compatible Ebola Virus Disease symptoms. Initial Sepsis Screen: Does the patient meet any 2 criteria? No. Patient's initial sepsis screen is negative. Does the patient have a suspected source of infection? No. Patient's initial sepsis screen is negative. Risk Assessment: Do you want to hurt yourself or someone else? Patient reports no desire to harm self or others. Onset of symptoms was December 17, 2021. 16:11 Method Of Arrival: EMS: [facility] 1 16:11 Acuity: DORIAN 3 vg1 Triage Assessment: 16:13 General: Appears in no apparent distress. uncomfortable, Behavior is calm, cooperative. vg1 Pain: Complains of pain in right upper quadrant and right lower quadrant Pain currently is 9 out of 10 on a pain scale. GI: Abdomen is round non-distended, Reports diarrhea, nausea, vomiting. Historical: - Allergies: 16:13 No Known Allergies; vg1 - Home Meds: 16:13 Zoloft Oral [Active]; vg1 16:18 trazodone 50 mg Oral tab 1 tab nightly [Active]; jh6 - PMHx: 16:13 chronic back pain; COPD; Glaucoma; Hypothyroidism; Anxiety; Chronic obstructive lung vg1 disease; - PSHx: 16:13 Cholecystectomy; vg1 - Immunization history:: Client reports having NOT received the Covid vaccine. - Social history:: Smoking status: Patient reports the use of cigarette tobacco products, smokes one-half pack cigarettes per day. Screenin:18 Abuse screen: Denies threats or abuse. Nutritional screening: No deficits noted. 6 Tuberculosis screening: No symptoms or risk factors identified. Fall Risk Assessment: 16:16 General: Appears in no apparent distress. Behavior is calm, cooperative. Pain: jh6 Complains of pain in right upper quadrant and right lower quadrant Pain radiates to right mid back Pain currently is 9 out of 10 on a pain scale. Quality of pain is described as crampy, gnawing, Pain began 2-3 days ago. Is continuous, Alleviated by repositioning, Aggravated by increased activity. GI: Bowel sounds present X 4 quads. Abdomen is tender to palpation in anterior aspect of right lateral abdomen, right upper quadrant and right lower quadrant Reports upper abdominal pain, vomiting. 17:45 Reassessment: Patient and/or family updated on plan of care and expected duration. Pain jh6 level reassessed. Patient denies pain at this time. Patient states feeling better. 17:45 General: Appears in no apparent distress. jh6 Vital Signs: 16:11 BP 122 / 78; Pulse 90; Resp 17; Temp 97.7; Pulse Ox 98% ; Weight 83.91 kg; Height 5 ft. vg1 8 in. (172.72 cm); Pain 9/10; 16:18 BP 123 / 76; Pulse 84; Resp 18; Pulse Ox 96% ; jh6 17:45 BP 99 / 64; Pulse 76; Resp 17; Temp 97.6(O); Pulse Ox 97% ; Pain 0/10; jh6 16:11 Body Mass Index 28.13 (83.91 kg, 172.72 cm) vg1 ED Course: 16:07 Patient arrived in ED. eb 16:08 Miki Qureshi PA is PHCP. [facility] 16:08 Yassine Jauregui MD is Attending Physician. [facility] 16:13 Triage completed. vg1 16:13 Arm band placed on. vg1 16:15 Renita Torres, MELINA is Primary Nurse. jh6 16:17 Inserted saline lock: 20 gauge in left antecubital area, using aseptic technique. Blood jh6 collected. 16:18 Placed in gown. Bed in low position. Call light in reach. Side rails up X 1. jh6 16:18 No provider procedures requiring assistance completed. jh6 17:07 Scrotum Testicles US In Process Unspecified. EDMS 17:16 CT Abd/Pelvis - IV Contrast Only In Process Unspecified. EDMS 18:04 IV discontinued, intact, bleeding controlled, No redness/swelling at site. Pressure jh6 dressing applied. Administered Medications: 16:27 Drug: Zofran (Ondansetron) 4 mg Route: IVP; Site: right hand; jh6 16:28 Drug: morphine 4 mg Route: IVP; Site: right hand; jh6 Outcome: 17:51 Discharge ordered by . diamond 18:04 Discharged to home ambulatory. jh6 18:04 Condition: improved 18:04 Discharge instructions given to patient, Instructed on discharge instructions, follow up and referral plans. Demonstrated understanding of instructions, follow-up care, medications, Prescriptions given X 4. 18:05 Patient left the ED. jh6 Signatures: Dispatcher [employer] EDMS Miki Qureshi PA PA jmm Botello, Elizabeth eb Garcia, Victoria, RN RN vg1 Renita Torres RN RN jh6
--- NOTE | 2021-12-20 17:52 | EDPHYS ---
Physician Documentation [facility] Name: Chi Kelley Age: 51 yrs Sex: Male : 1970 Arrival Date: 12/20/2021 Time: 16:07 Bed 2 Private MD: ED Physician Yassine Jauregui HPI: 12/20 16:11 This 51 yrs old Male presents to ER via EMS with complaints of Abdominal Pain. [facility] 16:11 The patient presents with abdominal pain. Onset: The symptoms/episode began/occurred jm gradually, 4 day(s) ago. The symptoms radiate to right back. Associated signs and symptoms: Pertinent positives: diarrhea, vomiting. The symptoms are described as achy. Modifying factors: The symptoms are alleviated by nothing, the symptoms are aggravated by nothing. The patient has experienced similar episodes in the past, multiple times. Historical: - Allergies: 16:13 No Known Allergies; vg1 - Home Meds: 16:13 Zoloft Oral [Active]; vg1 16:18 trazodone 50 mg Oral tab 1 tab nightly [Active]; jh6 - PMHx: 16:13 chronic back pain; COPD; Glaucoma; Hypothyroidism; Anxiety; Chronic obstructive lung vg1 disease; - PSHx: 16:13 Cholecystectomy; vg1 - Immunization history:: Client reports having NOT received the Covid vaccine. - Social history:: Smoking status: Patient reports the use of cigarette tobacco products, smokes one-half pack cigarettes per day. ROS: 16:11 Constitutional: Negative for fever, chills, and weight loss, Cardiovascular: Negative jm for chest pain, palpitations, and edema, Respiratory: Negative for shortness of breath, cough, wheezing, and pleuritic chest pain. 16:11 Abdomen/GI: Positive for abdominal pain, nausea and vomiting, diarrhea. 16:11 All other systems are negative. Exam: 16:11 Constitutional: This is a well developed, well nourished patient who is awake, alert, jmm and in no acute distress. Head/Face: atraumatic. Eyes: EOMI, no conjunctival erythema appreciated ENT: Moist Mucus Membranes Neck: Trachea midline, Supple Chest/axilla: Normal chest wall appearance and motion. Cardiovascular: Regular rate and rhythm. No edema appreciated Respiratory: Normal respirations, no respiratory distress appreciated 16:11 Skin: General appearance color normal MS/ Extremity: Moves all extremities, no obvious deformities appreciated, no edema noted to the lower extremities Neuro: Awake and alert Psych: Behavior is normal, Mood is normal, Patient is cooperative and pleasant 16:11 Abdomen/GI: Inspection: abdomen appears normal, Bowel sounds: normal, Palpation: soft, mild abdominal tenderness, in the right upper quadrant and right lower quadrant. Vital Signs: 16:11 BP 122 / 78; Pulse 90; Resp 17; Temp 97.7; Pulse Ox 98% ; Weight 83.91 kg; Height 5 ft. vg1 8 in. (172.72 cm); Pain 9/10; 16:18 BP 123 / 76; Pulse 84; Resp 18; Pulse Ox 96% ; jh6 17:45 BP 99 / 64; Pulse 76; Resp 17; Temp 97.6(O); Pulse Ox 97% ; Pain 0/10; jh6 16:11 Body Mass Index 28.13 (83.91 kg, 172.72 cm) vg1 MDM: 16:11 Patient medically screened. [facility] 17:50 Data reviewed: vital signs, nurses notes. Counseling: I had a detailed discussion with diamond the patient and/or guardian regarding: the historical points, exam findings, and any diagnostic results supporting the discharge/admit diagnosis, lab results, radiology results, the need for outpatient follow up, to return to the emergency department if symptoms worsen or persist or if there are any questions or concerns that arise at home. ED course: Pain relieved in the ED. CT negative for obstruction. Advised to follow up with GI and otherwise given strict return precautions. patient understood and agrees with the plan of care. . 12/20 16:14 Order name: Basic Metabolic Panel; Complete Time: 17:13 [facility] 12/20 16:14 Order name: CBC with Diff; Complete Time: 16:40 [facility] 12/20 16:14 Order name: Hepatic Function; Complete Time: 17:13 [facility] 12/20 16:14 Order name: Lipase; Complete Time: 17:13 [facility] 12/20 16:17 Order name: Scrotum Testicles US; Complete Time: 17:19 [facility] 12/20 16:17 Order name: CT Abd/Pelvis - IV Contrast Only; Complete Time: 17:43 [facility] 12/20 16:14 Order name: IV Saline Lock; Complete Time: 16:19 [facility] 12/20 16:14 Order name: Labs collected and sent; Complete Time: 16:19 [facility] Administered Medications: 16:27 Drug: Zofran (Ondansetron) 4 mg Route: IVP; Site: right hand; [facility] 16:28 Drug: morphine 4 mg Route: IVP; Site: right hand; 6 Disposition: 18:12 Co-signature as Attending Physician, Yassine Jauregui MD. rn Disposition Summary: 12/20/21 17:51 Discharge Ordered Location: Home [facility] Condition: Stable [facility] Diagnosis - Vomiting [facility] - Diarrhea, unspecified jmm Followup: [facility] - With: Private Physician - When: 2 - 3 days - Reason: Recheck today's complaints, Continuance of care, Re-evaluation by your physician Discharge Instructions: - Discharge Summary Sheet [facility] - Food Choices to Help Relieve Diarrhea, Adult jm - Vomiting, Adult [facility] Forms: - Medication Reconciliation Form [facility] - Thank You Letter [facility] - Antibiotic Education [facility] - Prescription Opioid Use [facility] Prescriptions: - Flagyl 500 mg Oral Tablet - take 1 tablet by ORAL route every 6 hours for 10 days; 40 tablet; Refills: 0, [facility] Product Selection Permitted - Cipro 500 mg Oral Tablet - take 1 tablet by ORAL route every 12 hours for 10 days; 20 tablet; Refills: 0, [facility] Product Selection Permitted - ondansetron 4 mg Oral tablet,disintegrating - take 1 tablet by ORAL route every 4-6 hours; 30 tablet; Refills: 0, Product [facility] Selection Permitted - dicyclomine 20 mg Oral Tablet - take 1 tablet by ORAL route 3 times per day; 30 tablet; Refills: 0, Product [facility] Selection Permitted Signatures: Dispatcher [employer] Miki Harvey PA PA [facility] Yassine Jauregui MD MD rn Garcia, Victoria RN RN vg1 Renita Torres RN RN jh6
[2021-12-20 18:27] VITALS: BP 99/64; TEMP 97.6; O2SAT 97
== END 2021-12-20 18:05 | disposition home or self-care (01) ==
LOC: ER 16:05
DX: R19.7 Diarrhea, unspecified (principal); R10.9 Unspecified abdominal pain; F41.9 Anxiety disorder, unspecified; F17.210 Nicotine dependence, cigarettes, uncomplicated
CPT/HCPCS: 85025; 80048; 36415; 80076; 83690; 74177; 76870; 96375; 96374; 99284; Q9967; J2405

== ENCOUNTER 2021-12-23 18:09 | Emergency (ER) | payer OTHER ==
--- OUTSIDE RECORDS SUMMARY | 2021-12-23 18:12 | XMS REPORT | Continuity of Care Document ---
:1970 Author Organization [facility] t Address [address] [place] [address] Care Team Providers Name Role Phone Unavailable Unavailable Unavailable Problems This patient has no known problems. Allergies, Adverse Reactions, Alerts This patient has no known allergies or adverse reactions. Medications This patient has no known medications. Procedures This patient has no known procedures. Results This patient has no known results.
[2021-12-23 18:31] LABS: Urine Blood Negative (Negative); Urine Glucose Negative (Negative); Urine Protein Negative (Negative); Urine Specific Gravity 1.025 (1.005-1.030)
[2021-12-23 18:44] LABS: Absolute Lymphocytes (CBC) 2.5 K/uL (0.7-4.9); Hematocrit 39.5 % (39.6-49.0); Lymphocytes % 26.3 % (15.3-44.8); RBC Red Blood Cell Count 4.22 M/uL (4.33-5.43)
[2021-12-23] MEDS ORDERED: FENTANYL CITR 100 MCG/2 ML ONE (18:48)
[2021-12-23] MEDS ORDERED: ONDANSETRON 4 MG/2 ML VIAL ONE (18:48)
[2021-12-23 18:55] LABS: Protime INR 0.84
[2021-12-23 18:56] LABS: BUN Blood Urea Nitrogen 14 mg/dL (7-18); Bicarbonate 25 mmol/L (21-32); Glucose Level 141 mg/dL (74-106); Potassium 3.7 mmol/L (3.5-5.1); Sodium Level 141 mmol/L (136-145)
[2021-12-23 19:01] LABS: ALT/SGPT 35 U/L (12-78); AST/SGOT 19 U/L (15-37); Albumin 3.5 g/dL (3.4-5.0); Alkaline Phosphatase 74 U/L (45-117); Bilirubin Total 0.1 mg/dL (0.2-1.0); Lipase 264 U/L (73-393); Protein, Total 6.8 g/dL (6.4-8.2)
[2021-12-23 19:03] LABS: Bilirubin Direct < 0.1 mg/dL (0-0.2)
[2021-12-23 19:11] LABS: Urine Amorphous Sediment 1+ /HPF (NONE SEEN); Urine Bacteria <20 /HPF (NONE SEEN); Urine RBC <5 /HPF (NONE SEEN)
[2021-12-23 19:15] LABS: Barbiturates NEGATIVE (NEGATIVE); Benzodiazepines NEGATIVE (NEGATIVE); Cocaine NEGATIVE (NEGATIVE); METHAMPHETAM NEGATIVE (NEGATIVE); Methadone NEGATIVE (NEGATIVE); Opiates NEGATIVE (NEGATIVE); Phencyclidine NEGATIVE (NEGATIVE); THC Cannibis NEGATIVE (NEGATIVE)
--- NOTE | 2021-12-23 19:35 | RAD REPORT ---
EXAM DESCRIPTION: US - Extrem Venous W Compress Lexa - 12/23/2021 7:18 pm CLINICAL HISTORY: Pain;Swelling COMPARISON: None. TECHNIQUE: Real-time sonographic evaluation of the bilateral lower extremity common femoral, superfi cial femoral, popliteal and posterior tibial veins was performed. FINDINGS: Normal compressibility, flow augmentation, phasic flow and spontaneous flow are identified in the left and right lower extremity common femoral, superficial femoral, popliteal and posterior t ibial veins. No intraluminal filling defects seen. IMPRESSION: No DVT in either lower extremity.
--- NOTE | 2021-12-23 19:40 | RAD REPORT ---
EXAM DESCRIPTION: CT - Stone Protocol - 12/23/2021 7:27 pm CLINICAL HISTORY: FLANK PAINright side COMPARISON: Abdomen Pelvis W Contrast dated 12/20/2021 TECHNIQUE: Axial 3 mm thick images were obtained without oral or IV contrast. The [id number] span s the entirety of the system including uppermost abdomen and lung bases. All CT scans are performed using dose optimization technique as appropriate and may include automated exposure control or mA/KV adjustment according to patient size. FINDINGS: No hydronephrosis is present and no obstructing ureteral calculi. Bilateral 3-7 mm sized n onobstructing calyx calculi are present. No suspicious renal masses. Isodense masses and pyelonephrit is are not excluded on a stone protocol CT scan. No significant adrenal finding. No urinary bladder s uspicious finding. No bladder calculi. Prostate gland and seminal vesicles within range of normal. Nu merous phleboliths are seen along the pelvic floor with seminal vesicle calcifications present. Imaged portions of the liver, spleen and pancreas show no suspicious findings on non-contrast imaging . Cholecystectomy clips are present. No biliary tree dilatation. No suspicious bowel findings. The appendix is normal. There is moderate stool volume throughout the c olon with no acute colon process identified. No mass or bulky lymphadenopathy. Left inguinal hernia repair changes are present. No recurrent herni a is seen. No free air, free fluid or inflammatory stranding. No significant bony abnormality. IMPRESSION: No hydronephrosis, obstructing calculus or acute finding. Patient has nonobstructing bilateral calyx calculi. No appendicitis or acute GI finding. Gallbladder is absent with normal biliary tree.
[2021-12-23] MEDS ORDERED: KETOROLAC 30 MG/ML INJ ONE (21:20)
--- NOTE | 2021-12-23 21:47 | ER ---
Nurse's Notes [facility] Name: Chi Kelley Age: 51 yrs Sex: Male : 1970 Arrival Date: 12/23/2021 Time: 18:11 Bed 6 Private MD: Diagnosis: Suicidal ideations;Abdominal pain, unspecified;Pain in leg, unspecified-bilateral Presentation: 12/23 18:11 Chief complaint: Patient states: pt presented to Ed reporting bilateral leg swelling nichole and SI. Coronavirus screen: Vaccine status: Patient reports being unvaccinated. Ebola Screen: Patient denies travel to an Ebola-affected area in the 21 days before illness onset. Initial Sepsis Screen: Does the patient meet any 2 criteria? HR > 90 bpm. No. Patient's initial sepsis screen is negative. Does the patient have a suspected source of infection? No. Patient's initial sepsis screen is negative. Risk Assessment: Do you want to hurt yourself or someone else? Patient reports desire/thoughts of hurting themselves or someone else. Provider notified. Onset of symptoms was December 23, 2021. 18:11 Method Of Arrival: EMS: [facility] nichole 18:11 Acuity: DORIAN 2 nichole Triage Assessment: 18:12 General: Appears in no apparent distress. Behavior is calm, cooperative. Pain: nichole Complains of pain in pt reported pain all over. Musculoskeletal: Reports pain in right leg and left leg Pain is 10 out of 10 on a pain scale. Historical: - Allergies: 18:12 No Known Allergies; nichole - Home Meds: 18:12 Flexeril 10 mg Oral tab 1 tab daily [Active]; trazodone 50 mg Oral tab 1 tab nightly nichole [Active]; Zoloft Oral [Active]; - PMHx: 18:12 Anxiety; chronic back pain; Chronic obstructive lung disease; COPD; Glaucoma; nichole Hypothyroidism; - PSHx: 18:15 Cholecystectomy; nichole - Immunization history:: Adult Immunizations not up to date. - Social history:: Smoking status: Patient reports the use of cigarette tobacco products, smokes two packs cigarettes per day. Screenin:14 Abuse screen: Denies threats or abuse. Denies injuries from another. Nutritional nichole screening: No deficits noted. Tuberculosis screening: No symptoms or risk factors identified. Fall Risk None identified. Assessment: 18:41 General: Appears in no apparent distress. Behavior is calm, cooperative. Pain: nichole Complains of pain in right leg and left leg. 19:05 Reassessment: cleared pt's room of all items, informed him of suicidal precautions. sm5 20:17 Reassessment: Patient and/or family updated on plan of care and expected duration. Pain sm5 level reassessed. 21:06 Reassessment: No changes from previously documented assessment. sm5 22:10 Reassessment: pt given a sandwich and soda. sm5 12/24 01:08 Reassessment: pt resting comfortably in bed. kd3 02:00 Reassessment: No changes from previously documented assessment. kd3 03:20 Reassessment: Patient and/or family updated on plan of care and expected duration. Pain kd3 level reassessed. Patient is alert, oriented x 3, equal unlabored respirations, skin warm/dry/pink. 04:30 Reassessment: No changes from previously documented assessment. kd3 05:12 Reassessment: pt resting comfortably in bed. kd3 06:06 Reassessment: No changes from previously documented assessment. kd3 07:05 Reassessment: pt resting with eyes closed. General: Appears in no apparent distress. vg1 comfortable. Cardiovascular: Patient's skin is warm and dry. Respiratory: Airway is patent Respiratory effort is even, unlabored. GI: No signs and/or symptoms were reported involving the gastrointestinal system. : No signs and/or symptoms were reported regarding the genitourinary system. EENT: No signs and/or symptoms were reported regarding the EENT system. Vital Signs: 12/23 18:11 BP 125 / 77; Pulse 90; Resp 18; Temp 98.2; Pulse Ox 97% on R/A; Weight 90.72 kg; Height nichole 5 ft. 8 in. (172.72 cm); 12/24 03:30 BP 128 / 72; Pulse 92; Resp 16; Pulse Ox 100% on R/A; kd3 07:10 BP 108 / 64; Pulse 80; Resp 16; Temp 98.1; Pulse Ox 96% on R/A; vg1 12/23 18:11 Body Mass Index 30.41 (90.72 kg, 172.72 cm) ED Course: 12/23 18:11 Patient arrived in ED. nichole 18:12 Triage completed. nichole 18:12 Arm band placed on. nichole 18:13 Ian Ibrahim PA is PHCP. cp 18:13 Yassine Jauregui MD is Attending Physician. cp 18:14 No apparent distress. ED physician to see patient. Safety Checks: The door is open or nichole patient has been placed in a hallway bed/chair. There are no family/friend visitors at this time. 18:14 Patient has correct armband on for positive identification. Bed in low position. nichole 18:14 No provider procedures requiring assistance completed. nichole 18:34 Inserted saline lock: 20 gauge in right antecubital area, using aseptic technique. ic1 Blood collected. 18:41 Safety Checks: Other: clothing and medications was given to security to lock up. nichole 18:43 Safety Checks: Other: hospital equipments was not removed from pt room until pt is nichole medically cleared D/T bilateral leg swelling from from taking new prescribed medication. 18:50 SARS-COV-2 RT PCR Sent. ic1 18:50 Basic Metabolic Panel Sent. ic1 19:03 Mili Jones, MELINA is Primary Nurse. kd3 19:18 US Extremity Venous W Compression Lexa In Process Unspecified. EDMS 19:27 CT Stone Protocol In Process Unspecified. EDMS 12/24 07:07 Safety Checks: Personal items have been removed. The door is open or patient has been vg1 placed in a hallway bed/chair. There are no family/friend visitors at this time Sitter not present at this time due to or because sitter unavailable at this time Other: pt is resting with eyes closed. 08:04 IV discontinued, intact, bleeding controlled, No redness/swelling at site. Pressure vg1 dressing applied. Administered Medications: 12/23 18:49 Drug: fentaNYL (PF) 25 mcg Route: IVP; Site: right antecubital; ic1 18:58 Follow up: Response: No adverse reaction nichole 18:49 Drug: Zofran (Ondansetron) 4 mg Route: IVP; Site: right antecubital; ic1 18:58 Follow up: Response: No adverse reaction nichole 21:20 Drug: Ketorolac 15 mg Route: IVP; Site: right antecubital; kd3 12/24 01:08 Follow up: Response: No adverse reaction; Pain is decreased kd3 12/23 22:51 Drug: Ativan (LORazepam) 1 mg Route: IVP; Site: right antecubital; kd3 12/24 01:08 Follow up: Response: No adverse reaction; Anxiety decreased kd3 Outcome: 12/23 21:46 ER care complete, transfer ordered by MD. avitia 12/24 08:16 Transferred by ground EMS vg1 Condition: good Instructed on the need for transfer. 08:16 Patient left the ED. vg1 Signatures: Dispatcher [employer] EDMS Ian Ibrahim PA PA cp Garcia, Victoria, RN RN vg1 Mili Jones RN RN kd3 Rufina Michaels RN RN sm5 Cheri Ham RN RN Lorie Rodríguez RN RN ic1
--- NOTE | 2021-12-23 21:47 | EDPHYS ---
Physician Documentation [facility] Name: Chi Kelley Age: 51 yrs Sex: Male : 1970 Arrival Date: 12/23/2021 Time: 18:11 Bed 6 Private MD: ED Physician Yassine Jauregui HPI: 12/23 18:30 This 51 yrs old Male presents to ER via EMS with complaints of Right Flank Pain and cp Suicidal Ideation. 18:30 The patient presents with abdominal pain right flank bilateral leg pain. cp 18:30 Onset: The symptoms/episode began/occurred chronically. cp 18:30 Associated signs and symptoms: Pertinent negatives: chest pain, fever, hallucinations, cp shortness of breath, vomiting. The symptoms do not radiate. 18:33 The patient presents to the emergency department with suicide ideation, and the patient cp has a plan, to hang oneself. Historical: - Allergies: 18:12 No Known Allergies; nichole - Home Meds: 18:12 Flexeril 10 mg Oral tab 1 tab daily [Active]; trazodone 50 mg Oral tab 1 tab nightly nichole [Active]; Zoloft Oral [Active]; - PMHx: 18:12 Anxiety; chronic back pain; Chronic obstructive lung disease; COPD; Glaucoma; nichole Hypothyroidism; - PSHx: 18:15 Cholecystectomy; nichole - Immunization history:: Adult Immunizations not up to date. - Social history:: Smoking status: Patient reports the use of cigarette tobacco products, smokes two packs cigarettes per day. ROS: 18:40 Constitutional: Negative for body aches, chills, fever, poor PO intake. cp 18:40 Eyes: Negative for injury, pain, redness, and discharge. cp 18:40 Neck: Negative for pain with movement, pain at rest, stiffness. 18:40 Cardiovascular: Negative for chest pain, edema, palpitations. 18:40 Respiratory: Negative for cough, shortness of breath, wheezing. 18:40 Abdomen/GI: Positive for abdominal pain, Negative for vomiting, diarrhea, constipation, anorexia, black/tarry stool, rectal bleeding. 18:40 : Negative for urinary symptoms, testicular pain 18:40 MS/extremity: Positive for pain, swelling, of the right leg and left leg, Negative for injury or acute deformity, decreased range of motion. 18:40 Neuro: Negative for altered mental status, headache, weakness. 18:40 All other systems are negative. Exam: 18:45 Constitutional: The patient appears in no acute distress, alert, awake, cp non-diaphoretic, non-toxic, well developed, well nourished. 18:45 Head/Face: Normocephalic, atraumatic. cp 18:45 Eyes: Periorbital structures: appear normal, Conjunctiva: normal, no exudate, no injection, Sclera: no appreciated abnormality, Lids and lashes: appear normal, bilaterally. 18:45 ENT: External ear(s): are unremarkable, Nose: is normal, Mouth: Lips: moist, Oral mucosa: pink and intact, moist, Posterior pharynx: Airway: no evidence of obstruction, patent. 18:45 Neck: ROM/movement: is normal, is supple, without pain, no range of motions limitations. 18:45 Chest/axilla: Inspection: normal. 18:45 Cardiovascular: Rate: normal, Rhythm: regular, Edema: is not appreciated, JVD: is not appreciated. 18:45 Respiratory: the patient does not display signs of respiratory distress, Respirations: normal, no use of accessory muscles, no retractions, labored breathing, is not present, Breath sounds: are clear throughout, no decreased breath sounds, no stridor, no wheezing. 18:45 Abdomen/GI: Inspection: abdomen appears normal, Bowel sounds: active, all quadrants, Palpation: soft, in all quadrants, moderate abdominal tenderness, in the anterior aspect of right lateral abdomen, right upper quadrant and right lower quadrant, rebound tenderness, is not appreciated, involuntary guarding, is not appreciated. 18:45 Back: vertebral tenderness, is not appreciated. 18:45 Skin: cellulitis, is not appreciated, no rash present. 18:45 Neuro: Orientation: to person, place \T\ time. Mentation: is normal, Motor: moves all fours, strength is normal, Sensation: is normal. 18:45 Psych: Behavior/mood is cooperative, Affect is calm, Patient having thoughts of suicide. Plan for suicide is hang himself with rope Judgement / Insight is normal. Delusions/hallucinations are not present. 19:28 ECG was reviewed by the Attending Physician. cp Vital Signs: 18:11 BP 125 / 77; Pulse 90; Resp 18; Temp 98.2; Pulse Ox 97% on R/A; Weight 90.72 kg; Height nichole 5 ft. 8 in. (172.72 cm); 12/24 03:30 BP 128 / 72; Pulse 92; Resp 16; Pulse Ox 100% on R/A; kd3 07:10 BP 108 / 64; Pulse 80; Resp 16; Temp 98.1; Pulse Ox 96% on R/A; vg1 12/23 18:11 Body Mass Index 30.41 (90.72 kg, 172.72 cm) nichole MDM: 12/23 18:32 Patient medically screened. 21:43 Other consultation: [facility] screener recommends transfer for inpatient treatment to psych facility. 21:45 Data reviewed: vital signs, nurses notes, lab test result(s), EKG, radiologic studies, cp CT scan, and as a result, I will transfer patient to psych facility. 21:45 Test interpretation: by ED physician or midlevel provider: ECG. 23:32 Physician consultation: was contacted at 23:30, regarding regarding transfer, to a psychiatric hospital. patient's condition, accepting physician will be DR Ji. 12/23 18:22 Order name: Basic Metabolic Panel cp 12/23 18:22 Order name: CBC with Diff; Complete Time: 19:51 cp 12/23 19:51 Interpretation: Normal except: RBC 4.22; HCT 39.5. cp 12/23 18:22 Order name: Hepatic Function; Complete Time: 19:51 cp 12/23 19:51 Interpretation: Normal except: BILIT 0.1. cp 12/23 18:22 Order name: Lipase; Complete Time: 19:51 cp 12/23 19:54 Interpretation: Reviewed. cp 12/23 18:22 Order name: Urine Microscopic Only; Complete Time: 19:51 cp 12/23 19:55 Interpretation: Reviewed. cp 12/23 18:22 Order name: Basic Metabolic Panel; Complete Time: 19:51 EDMS 12/23 19:51 Interpretation: Normal except: GLUC 141; GFR 68. cp 12/23 18:28 Order name: Acetaminophen; Complete Time: 19:51 cp 12/23 18:28 Order name: ETOH Level; Complete Time: 19:51 cp 12/23 20:00 Interpretation: Reviewed. cp 12/23 18:28 Order name: PT-INR; Complete Time: 19:51 cp 12/23 18:28 Order name: Ptt, Activated; Complete Time: 19:51 cp 12/23 18:28 Order name: Salicylate; Complete Time: 23:28 cp 12/23 18:28 Order name: Urine Drug Screen; Complete Time: 19:51 cp 12/23 18:31 Order name: Urine Dipstick-Ancillary; Complete Time: 19:51 EDMS 12/23 19:54 Interpretation: Normal except: UKET Trace. cp 12/23 18:22 Order name: US Extremity Venous W Compression Lexa; Complete Time: 19:51 cp 12/23 19:52 Interpretation: Report reviewed. cp 12/23 18:22 Order name: IV Saline Lock; Complete Time: 18:50 cp 12/23 18:22 Order name: Labs collected and sent; Complete Time: 18:50 cp 12/23 18:22 Order name: Urine Dipstick-Ancillary (obtain specimen); Complete Time: 19:25 cp 12/23 18:22 Order name: CT Stone Protocol; Complete Time: 19:51 cp 12/23 18:28 Order name: NPO; Complete Time: 19:24 cp 12/23 18:28 Order name: EKG; Complete Time: 18:29 cp 12/23 18:28 Order name: EKG - Nurse/Tech; Complete Time: 19:24 cp 12/23 18:28 Order name: Suicide Screening (Jermyn); Complete Time: 18:50 cp 12/23 18:43 Order name: SARS-COV-2 RT PCR; Complete Time: 19:51 EDMS EC:28 Rate is 74 beats/min. Rhythm is regular. OR interval is normal. QRS interval is normal. cp QT interval is normal. T waves are Inverted in lead aVR. Interpreted by me. Reviewed by me. Administered Medications: 18:49 Drug: fentaNYL (PF) 25 mcg Route: IVP; Site: right antecubital; ic1 18:58 Follow up: Response: No adverse reaction nichole 18:49 Drug: Zofran (Ondansetron) 4 mg Route: IVP; Site: right antecubital; ic1 18:58 Follow up: Response: No adverse reaction nichole 21:20 Drug: Ketorolac 15 mg Route: IVP; Site: right antecubital; kd3 0309 01:08 Follow up: Response: No adverse reaction; Pain is decreased kd3 03/08 22:51 Drug: Ativan (LORazepam) 1 mg Route: IVP; Site: right antecubital; kd3 12/24 01:08 Follow up: Response: No adverse reaction; Anxiety decreased kd3 Disposition Summary: 12/23/21 21:46 Transfer Ordered Transfer Location: [facility] Facility cp Reason: Higher level of care cp Condition: Stable cp Problem: new cp Symptoms: have improved cp Accepting Physician: DR Ji(12/24/21 08:16) vg1 Diagnosis - Suicidal ideations cp - Abdominal pain, unspecified cp - Pain in leg, unspecified - bilateral cp Forms: - Medication Reconciliation Form cp - SBAR form cp Signatures: Dispatcher [employer] EDMS Ian Ibrahim PA PA cp Garcia, Victoria RN RN vg1 Mili Jones RN RN kd3 Wendy-Cheri Cruz RN RN Lorie Rodríguez RN RN ic1 Corrections: (The following items were deleted from the chart) 12/23 18:43 18:21 COVID 19 CPL+MR.LAB.BRZ ordered. EDMS EDMS 18:49 18:29 ETHANOL+C.LAB.BRZ ordered. EDMS EDMS 23:33 21:46 Doctor cp cp 12/24 08:16 12/23 23:33 DR Ji cp vg1 12/24 23:40 12/23 18:30 The patient presents with abdominal pain right flank cp cp
[2021-12-23] MEDS ORDERED: LORazepam 2 MG/ML VIAL ONE (22:53)
[2021-12-24 08:25] VITALS: BP 108/64; TEMP 98.1; O2SAT 96
--- NOTE | 2021-12-24 12:53 | EKG ---
Test Date: 2021-12-23 Test Time: 19:23:17 Alarm Signal Operator: BRYANT MEASUREMENT RESULTS: Intervals: Rate: 74 NE: 170 QRSD: 84 QT: 374 QTc: 415 [place]: P: 61 NE: 170 QRS: 51 T: 51 INTERPRETIVE STATEMENTS: Normal sinus rhythm Normal ECG Compared to ECG 11/24/2020 17:49:40 No significant changes Electronically Signed On 12-24-21 12:52:02 UNDERGROUND TRUCK OPERATOR by Zack Tong
== END 2021-12-24 08:16 ==
LOC: ER 18:09
DX: R45.851 Suicidal ideations (principal); R10.9 Unspecified abdominal pain; M79.605 Pain in left leg; M79.604 Pain in right leg; F41.9 Anxiety disorder, unspecified; J44.9 Chronic obstructive pulmonary disease, unspecified; F17.210 Nicotine dependence, cigarettes, uncomplicated; Z20.822 Contact with and (suspected) exposure to COVID-19
CPT/HCPCS: 93005; 85025; 80048; 36415; 80320; 80329 ×2; 85610; 80076; 85730; 83690; 80307; 76377; 74176; 93970; U0003; J3010; J2405; 81003; 81015; 96374; 96375; 99285

== ENCOUNTER 2022-01-16 17:53 | Emergency (ER) | payer OTHER ==
--- OUTSIDE RECORDS SUMMARY | 2022-01-16 17:57 | XMS REPORT | Continuity of Care Document ---
:1970 Author Organization [facility] t Address [address] [place] [address] Care Team Providers Name Role Phone Unavailable Unavailable Unavailable Problems This patient has no known problems. Allergies, Adverse Reactions, Alerts This patient has no known allergies or adverse reactions. Medications This patient has no known medications. Procedures This patient has no known procedures. Results This patient has no known results.
--- NOTE | 2022-01-16 18:32 | EDPHYS ---
Physician Documentation [facility] Name: Chi Kelley Age: 51 yrs Sex: Male : 1970 Arrival Date: 01/16/2022 Time: 17:55 Bed 27 Private MD: ED Physician Mario Devine HPI: 01/16 19:21 This 51 yrs old Male presents to ER via Ambulatory with complaints of Headache. mh7 19:21 The patient complains of pain to the head. The patient describes the headache as mh7 intermittent, throbbing, waxing and waning. Onset: The symptoms/episode began/occurred 4 month(s) ago, and became worse 2 week(s) ago. Associated signs and symptoms: Pertinent positives: dizziness, nausea, Photophobia Vertigo Ear ringing, Pertinent negatives: altered mental status, fever, malaise, neck stiffness, paresthesias, rash, sinus congestion, sinus tenderness, vision changes, vision loss, vomiting, weakness. Severity of symptoms: At its worst the pain was moderate, 7 day(s) ago, in the emergency department the pain has improved, moderately. Headache History: The patient has had previous headaches and this one is similar to previous episodes. The symptoms are alleviated by Darkened room, remaining still, the symptoms are aggravated by movement, noise. Historical: - Allergies: 18:10 No Known Allergies; ab2 - PMHx: 18:10 Anxiety; chronic back pain; COPD; Chronic obstructive lung disease; Glaucoma; ab2 Hypothyroidism; - PSHx: 18:10 Cholecystectomy; ab2 - Immunization history:: Adult Immunizations up to date. - Social history:: Smoking status: Patient reports the use of cigarette tobacco products, smokes one-half pack cigarettes per day. ROS: 19:21 Constitutional: Negative for fever, chills, and weight loss, Eyes: Negative for injury, mh7 pain, redness, and discharge, ENT: Negative for injury, pain, and discharge, Neck: Negative for injury, pain, and swelling, Cardiovascular: Negative for chest pain, palpitations, and edema, Respiratory: Negative for shortness of breath, cough, wheezing, and pleuritic chest pain. 19:21 Back: Negative for injury and pain, : Negative for injury, bleeding, discharge, and swelling, MS/Extremity: Negative for injury and deformity, Skin: Negative for injury, rash, and discoloration, Psych: Negative for depression, anxiety, suicide ideation, homicidal ideation, and hallucinations, Allergy/Immunology: Negative for hives, rash, and allergies, Endocrine: Negative for neck swelling, polydipsia, polyuria, polyphagia, and marked weight changes, Hematologic/Lymphatic: Negative for swollen nodes, abnormal bleeding, and unusual bruising. 19:21 Abdomen/GI: Negative for abdominal pain, vomiting, diarrhea, constipation, abdominal cramps, abdominal distension, anorexia, dysphagia, hematemesis, black/tarry stool, rectal pain, rectal bleeding, bowel incontinence, flatulence. Exam: 19:21 Constitutional: This is a well developed, well nourished patient who is awake, alert, mh7 and in no acute distress. 19:21 Eyes: Pupils equal round and reactive to light, extra-ocular motions intact. Lids and lashes normal. Conjunctiva and sclera are non-icteric and not injected. Cornea within normal limits. Periorbital areas with no swelling, redness, or edema. Neck: Trachea midline, no thyromegaly or masses palpated, and no cervical lymphadenopathy. Supple, full range of motion without nuchal rigidity, or vertebral point tenderness. No Meningismus. Chest/axilla: Normal chest wall appearance and motion. Nontender with no deformity. No lesions are appreciated. Cardiovascular: Regular rate and rhythm with a normal S1 and S2. No gallops, murmurs, or rubs. Normal PMI, no JVD. No pulse deficits. Respiratory: Lungs have equal breath sounds bilaterally, clear to auscultation and percussion. No rales, rhonchi or wheezes noted. No increased work of breathing, no retractions or nasal flaring. Abdomen/GI: Soft, non-tender, with normal bowel sounds. No distension or tympany. No guarding or rebound. No evidence of tenderness throughout. Back: No spinal tenderness. No costovertebral tenderness. Full range of motion. Skin: Warm, dry with normal turgor. Normal color with no rashes, no lesions, and no evidence of cellulitis. MS/ Extremity: Pulses equal, no cyanosis. Neurovascular intact. Full, normal range of motion. Psych: Awake, alert, with orientation to person, place and time. Behavior, mood, and affect are within normal limits. 19:21 Head/face: Noted is tenderness, that is moderate, of the scalp, diffusely. 19:21 Neuro: Orientation: is normal, Mentation: is normal, Memory: is normal, Cranial nerves: grossly normal, Cerebellar function: is grossly normal, Motor: is normal, Sensation: is normal, Gait: not tested. seizure activity, is not displayed by the patient, Abnormal movements: there are no abnormal movements. 19:21 ENT: Nares patent. No nasal discharge, no septal abnormalities noted. Tympanic mh7 membranes are normal and external auditory canals are clear. Oropharynx with no redness, swelling, or masses, exudates, or evidence of obstruction, uvula midline. Mucous membranes moist. 20:05 ECG was reviewed by the Attending Physician. 7 Vital Signs: 18:08 BP 136 / 79; Pulse 97; Resp 17; Temp 97.7(TE); Pulse Ox 99% on R/A; Weight 88.45 kg; ab2 Height 5 ft. 9 in. (175.26 cm); Pain 10/10; 18:45 BP 119 / 72; Pulse 95; Resp 18; Pulse Ox 95% on R/A; ld1 19:45 BP 124 / 71; Pulse 75; Resp 18; Pulse Ox 98% on R/A; ld1 20:34 BP 118 / 71; Pulse 84; Resp 18; Pulse Ox 98% on R/A; ld1 21:49 BP 127 / 69; Pulse 82; Resp 18; Pulse Ox 99% on R/A; ld1 18:08 Body Mass Index 28.80 (88.45 kg, 175.26 cm) ab2 [place] Coma Score: 21:52 Eye Response: spontaneous(4). Verbal Response: oriented(5). Motor Response: obeys mh7 commands(6). Total: 15. MDM: 21:52 Differential diagnosis: cluster headache, intracerebral hemorrhage, migraine, otitis, mh7 sinusitis, tension headache. Data reviewed: vital signs, nurses notes, old medical records, lab test result(s), CBC, electrolytes, EKG, radiologic studies, CT scan. Data interpreted: Pulse oximetry: on room air is 99 %. Interpretation: normal. Counseling: I had a detailed discussion with the patient and/or guardian regarding: the historical points, exam findings, and any diagnostic results supporting the discharge/admit diagnosis, lab results, radiology results, the need for outpatient follow up, an ENT specialist, to return to the emergency department if symptoms worsen or persist or if there are any questions or concerns that arise at home. Response to treatment: the patient's symptoms have markedly improved after treatment. Physician consultation: Tanesha Royal MD was contacted at 20:50, regarding patient's condition, and will see patient in office, Recommended Augmentin 875 mg BID for 10 days and follow up in office. 21:57 Patient medically screened. [facility] 01/16 19:21 Order name: CBC with Diff; Complete Time: 20:32 7 01/16 19:21 Order name: Basic Metabolic Panel; Complete Time: 21:31 [facility] 01/16 19:21 Order name: Protime (+inr); Complete Time: 20:32 7 01/16 19:21 Order name: Ptt, Activated; Complete Time: 20:32 7 01/16 19:21 Order name: LFT's; Complete Time: 21:31 [facility] 01/16 19:35 Order name: UDS; Complete Time: 20:32 7 01/16 19:21 Order name: Urine Dipstick-Ancillary (obtain specimen); Complete Time: 20:03 7 01/16 19:21 Order name: EKG - Nurse/Tech; Complete Time: 20:03 7 01/16 19:21 Order name: CT Head Brain wo Cont; Complete Time: 20:32 7 01/16 20:02 Order name: Urine Dipstick-Ancillary; Complete Time: 20:32 EDMS 01/16 19:21 Order name: Saline Lock; Complete Time: 20:03 mh7 EC:05 Rate is 88 beats/min. Rhythm is regular, Normal Sinus Rhythm with No ectopy. QRS [place] 7 is Normal. [place] interval is normal. QRS interval is normal. QT interval is normal. No Q waves. T waves are Normal. No ST changes noted. Clinical impression: Normal ECG and LVH. Administered Medications: 20:03 Drug: Reglan (metoCLOPramide) 10 mg Route: IVP; Site: right antecubital; ld1 20:03 Drug: Benadryl (diphenhydrAMINE) 50 mg Route: IVP; Site: right antecubital; ld1 20:03 Drug: NS 0.9% 500 ml Route: IV; Rate: bolus; Site: right antecubital; ld1 21:59 Drug: Augmentin (Amoxicillin-Clavulanate) 875 mg Route: PO; ld1 Disposition: 01/17 01:03 Co-signature as Attending Physician, Mario Devine MD. [facility] Disposition Summary: 01/16/22 21:57 Discharge Ordered Location: Home [facility] Problem: chronic [facility] Symptoms: have improved [facility] Condition: Stable(01/16/22 21:57) [facility] Diagnosis - Chronic Mastoiditis, Headache [facility] - Dizziness and giddiness [facility] Followup: [facility] - With: Private Physician - When: 1 - 2 days - Reason: Worsening of condition, Recheck today's complaints, Continuance of care, Re-evaluation by your physician Followup: [facility] - With: Tanesha Royal MD - When: 2 - 3 days - Reason: Worsening of condition, Further diagnostic work-up, Recheck today's complaints, Continuance of care Discharge Instructions: - Discharge Summary Sheet [facility] - Mastoiditis, Pediatric [facility] - Vertigo, [id number] [facility] - Dizziness, [id number] [facility] Forms: - Medication Reconciliation Form [facility] - Thank You Letter [facility] - Antibiotic Education [facility] - Prescription Opioid Use [facility] Prescriptions: - ketorolac 10 mg Oral tablet - take 1 tablet by ORAL route every 6 hours As needed not to exceed 40 mg in [facility] 24hrs; 15 tablet; Refills: 0, Product Selection Permitted - Augmentin 875-125 mg Oral Tablet - take 1 tablet by ORAL route every 12 hours for 10 days; 20 tablet; Refills: 0, [facility] Product Selection Permitted - Meclizine 25 mg Oral Tablet - take 1 tablet by ORAL route every 8 hours As needed; 30 tablet; Refills: 0, [facility] Product Selection Permitted Signatures: Dispatcher [employer] EDErika Gaffney, NIKKI-C CURRICULUM SUPERVISOR-Mario Puckett MD MD [facility] Lisa Valencia RN RN ld1 Dmitriy Carrillo Corrections: (The following items were deleted from the chart) 01/16 18:26 18:26 Data reviewed: vital signs, nurses notes, jennifer rodriguez 18:26 18:26 Data interpreted: Pulse oximetry: on room air is 99 %. Interpretation: normal. jennifer kb 18: 18: GCS: 15, kb kb 18:33 18:31 before being seen by provider ab2 iw : 18:31 unknown ab2 iw 18:31 Stable ab2 iw
--- NOTE | 2022-01-16 18:32 | ER ---
Nurse's Notes [facility] Name: Chi Kelley Age: 51 yrs Sex: Male : 1970 Arrival Date: 01/16/2022 Time: 17:55 Bed 27 Private MD: Diagnosis: Chronic Mastoiditis, Headache;Dizziness and giddiness Presentation: 01/16 18:08 Chief complaint: Patient states: "I've had a headache for 4 months and its getting ab2 worse. The pain radiates down my head into my left shoulder. My eyes hurt and I can hardly hear. I am losing my hair". Coronavirus screen: Vaccine status: Patient reports being unvaccinated. Client denies travel out of the [place] in the last 14 days. At this time, the client does not indicate any symptoms associated with coronavirus-19. Ebola Screen: Patient negative for fever greater than or equal to 101.5 degrees Fahrenheit, and additional compatible Ebola Virus Disease symptoms Patient denies exposure to infectious person. Patient denies travel to an Ebola-affected area in the 21 days before illness onset. No symptoms or risks identified at this time. Initial Sepsis Screen: Does the patient meet any 2 criteria? No. Patient's initial sepsis screen is negative. Does the patient have a suspected source of infection? No. Patient's initial sepsis screen is negative. Risk Assessment: Do you want to hurt yourself or someone else? Patient reports no desire to harm self or others. Onset of symptoms is unknown. 18:08 Method Of Arrival: Ambulatory ab2 18:08 Acuity: DORIAN 3 ab2 Triage Assessment: 18:11 Headache History: The patient has had previous headaches and this one is similar to ab2 previous episodes. General: Appears in no apparent distress. uncomfortable, Behavior is calm, cooperative, appropriate for age. Pain: Complains of pain in head Pain currently is 10 out of 10 on a pain scale. Pain began 4 months Also complains of. EENT: Reports decreased hearing in right ear and left ear pain in right eye, right ear, left ear and left eye. Neuro: Level of Consciousness is awake, alert, obeys commands, Oriented to person, place, time, situation, Appropriate for age Gang Worker are equal bilaterally Moves all extremities. Gait is steady, Speech is normal. Respiratory: Airway is patent Respiratory effort is even, unlabored, Respiratory pattern is regular, symmetrical. Derm: Skin is intact, Skin is pink, warm \\T\\ dry. Historical: - Allergies: 18:10 No Known Allergies; ab2 - PMHx: 18:10 Anxiety; chronic back pain; COPD; Chronic obstructive lung disease; Glaucoma; ab2 Hypothyroidism; - PSHx: 18:10 Cholecystectomy; ab2 - Immunization history:: Adult Immunizations up to date. - Social history:: Smoking status: Patient reports the use of cigarette tobacco products, smokes one-half pack cigarettes per day. Screenin:51 Abuse screen: Denies threats or abuse. Denies injuries from another. Nutritional ld1 screening: No deficits noted. Tuberculosis screening: No symptoms or risk factors identified. Fall Risk None identified. Assessment: 18:51 General: Appears in no apparent distress. comfortable, Behavior is calm, cooperative, ld1 appropriate for age. Pain: Complains of pain in face Pain does not radiate. Pain currently is 8 out of 10 on a pain scale. Quality of pain is described as throbbing, Pain began gradually, Is intermittent. Neuro: Level of Consciousness is awake, alert, obeys commands, Oriented to person, place, time, situation. Cardiovascular: Capillary refill < 3 seconds Patient's skin is warm and dry. Respiratory: Airway is patent Respiratory effort is even, unlabored. GI: Abdomen is flat, non-distended. : No signs and/or symptoms were reported regarding the genitourinary system. EENT: No signs and/or symptoms were reported regarding the EENT system. Derm: No signs and/or symptoms reported regarding the dermatologic system. Musculoskeletal: No signs and/or symptoms reported regarding the musculoskeletal system. 19:45 Reassessment: Patient appears in no apparent distress at this time. Patient and/or ld1 family updated on plan of care and expected duration. Pain level reassessed. Patient is alert, oriented x 3, equal unlabored respirations, skin warm/dry/pink. 19:45 Reassessment: Patient appears in no apparent distress at this time. No changes from ld1 previously documented assessment. Patient and/or family updated on plan of care and expected duration. Pain level reassessed. Patient is alert, oriented x 3, equal unlabored respirations, skin warm/dry/pink. Vital Signs: 18:08 BP 136 / 79; Pulse 97; Resp 17; Temp 97.7(TE); Pulse Ox 99% on R/A; Weight 88.45 kg; ab2 Height 5 ft. 9 in. (175.26 cm); Pain 10/10; 18:45 BP 119 / 72; Pulse 95; Resp 18; Pulse Ox 95% on R/A; ld1 19:45 BP 124 / 71; Pulse 75; Resp 18; Pulse Ox 98% on R/A; ld1 20:34 BP 118 / 71; Pulse 84; Resp 18; Pulse Ox 98% on R/A; ld1 21:49 BP 127 / 69; Pulse 82; Resp 18; Pulse Ox 99% on R/A; ld1 18:08 Body Mass Index 28.80 (88.45 kg, 175.26 cm) ab2 [place] Coma Score: 21:52 Eye Response: spontaneous(4). Verbal Response: oriented(5). Motor Response: obeys mh7 commands(6). Total: 15. ED Course: 17:55 Patient arrived in ED. am2 18:10 Triage completed. ab2 18:12 Arm band placed on left wrist. ab2 18:34 Lisa Valencia, RN is Primary Nurse. ld1 18:51 Patient has correct armband on for positive identification. Placed in gown. Bed in low ld1 position. Call light in reach. Side rails up X2. legal contracts specialist on. Pulse ox on. NIBP on. Door closed. Noise minimized. Warm blanket given. 18:51 No provider procedures requiring assistance completed. ld1 19:01 Mario Devine MD is Attending Physician. mh7 20:02 CT Head Brain wo Cont In Process Unspecified. EDMS 20:04 UDS Sent. ld1 20:04 Inserted saline lock: 20 gauge in right antecubital area, using aseptic technique. ld1 Blood collected. 21:56 Tanesha Royal MD is Referral Physician. mh7 22:11 IV discontinued, intact, bleeding controlled, No redness/swelling at site. ld1 Administered Medications: 20:03 Drug: Reglan (metoCLOPramide) 10 mg Route: IVP; Site: right antecubital; ld1 20:03 Drug: Benadryl (diphenhydrAMINE) 50 mg Route: IVP; Site: right antecubital; ld1 20:03 Drug: NS 0.9% 500 ml Route: IV; Rate: bolus; Site: right antecubital; ld1 21:59 Drug: Augmentin (Amoxicillin-Clavulanate) 875 mg Route: PO; ld1 Outcome: 18:31 Patient left the ED. ab2 21:57 Discharge ordered by . mh7 22:11 Discharged to home ambulatory. ld1 22:11 Condition: stable 22:11 Discharge instructions given to patient, Instructed on discharge instructions, follow up and referral plans. medication usage, Demonstrated understanding of instructions, follow-up care, medications. 22:11 Patient left the ED. ld1 Signatures: Dispatcher [employer] EDMS Erika Hackett, TOLL MECHANIC-C TOLL MECHANIC-Linda Guardado amMario Tobar MD MD [facility] Lisa Valencia RN RN ld1 Dmitriy Carrillo ab2
[2022-01-16] MEDS ORDERED: METOCLOPRAMIDE 10 MG/2mL INJ ONE (19:45)
[2022-01-16] MEDS ORDERED: DIPHENHYDRAMINE 50 MG/ML VIAL ONE (19:45)
[2022-01-16] MEDS ORDERED: NA CHLORIDE 0.9% 1,000 ML ONE (19:45)
[2022-01-16 20:02] LABS: Urine Blood 1+ (Negative); Urine Glucose Negative (Negative); Urine Protein Negative (Negative)
[2022-01-16 20:19] LABS: Absolute Lymphocytes (CBC) 2.7 K/uL (0.7-4.9); Hematocrit 39.4 % (39.6-49.0); Lymphocytes % 33.2 % (15.3-44.8); MPV 8.8 fL (7.6-11.3); RBC Red Blood Cell Count 4.27 M/uL (4.33-5.43)
[2022-01-16 20:20] LABS: Protime INR 0.89
--- NOTE | 2022-01-16 20:21 | RAD REPORT ---
EXAM DESCRIPTION: CT - Head Brain Wo Cont - 01/16/2022 8:01 pm CLINICAL HISTORY: Headache;Dizziness COMPARISON: Head Brain Wo Cont dated 07/27/2020 TECHNIQUE: Axial 5 mm thick images of the head were obtained without IV contrast. All CT scans are performed using dose optimization technique as appropriate and may include automated exposure control or mA/KV adjustment according to patient size. FINDINGS: No intracranial hemorrhage, mass, edema or shift of mid-line structures. No acute infarcti on changes seen. No abnormal extra-axial fluid collections. Ventricles are normal. Right-side mastoid air cells and paranasal sinuses are clear. There is complete left mastoid air cell opacification and partial opacification of the left middle ear. Similar pattern was seen in 2019. No acute bony findings. IMPRESSION: No acute intracranial finding. Intracranial findings are similar to July 2020. Complete opacification of the left mastoid air cells and partial middle ear opacification. Similar fi ndings were noted in 2019. This would be consistent with a chronic mastoiditis. No bone destruction seen.
[2022-01-16 20:22] LABS: Barbiturates NEGATIVE (NEGATIVE); Benzodiazepines NEGATIVE (NEGATIVE); Cocaine NEGATIVE (NEGATIVE); METHAMPHETAM NEGATIVE (NEGATIVE); Methadone NEGATIVE (NEGATIVE); Opiates NEGATIVE (NEGATIVE); Phencyclidine NEGATIVE (NEGATIVE); THC Cannibis NEGATIVE (NEGATIVE)
[2022-01-16 20:33] VITALS: TEMP 97.7
[2022-01-16 20:46] LABS: ALT/SGPT 40 U/L (12-78); AST/SGOT 20 U/L (15-37); Albumin 3.5 g/dL (3.4-5.0); Alkaline Phosphatase 76 U/L (45-117); BUN Blood Urea Nitrogen 13 mg/dL (7-18); Bicarbonate 29 mmol/L (21-32); Bilirubin Total 0.1 mg/dL (0.2-1.0); Glucose Level 175 mg/dL (74-106); Potassium 3.7 mmol/L (3.5-5.1); Protein, Total 6.7 g/dL (6.4-8.2); Sodium Level 142 mmol/L (136-145)
[2022-01-16 21:22] LABS: Bilirubin Direct < 0.1 mg/dL (0-0.2)
[2022-01-16] MEDS ORDERED: AMOX/K CLAV 875 MG TAB ONE (21:59)
[2022-01-16 23:38] VITALS: BP 127/69; O2SAT 99
--- NOTE | 2022-01-20 08:34 | EKG ---
Test Date: 2022-01-16 Test Time: 19:49:46 [place] Supervisor: TANVI MEASUREMENT RESULTS: Intervals: Rate: 88 OR: 174 QRSD: 82 QT: 356 QTc: 430 [place]: P: 41 OR: 174 QRS: 24 T: 6 INTERPRETIVE STATEMENTS: Normal sinus rhythm Moderate voltage criteria for LVH, may be normal variant Borderline ECG Compared to ECG 12/23/2021 19:23:17 Left ventricular hypertrophy now present Electronically Signed On 01-20-22 08:28:31 CDT by Zack Tong
== END 2022-01-16 22:11 | disposition home or self-care (01) ==
LOC: ER 17:53
DX: H70.10 Chronic mastoiditis, unspecified ear (principal); R42 Dizziness and giddiness; E03.9 Hypothyroidism, unspecified; J44.9 Chronic obstructive pulmonary disease, unspecified; F41.9 Anxiety disorder, unspecified; F17.210 Nicotine dependence, cigarettes, uncomplicated
CPT/HCPCS: 93005; 85025; 80048; 36415; 85610; 80076; 85730; 81003; 80307; 70450; 96375; 96374; 99284; J2765; J1200; J7030

== ENCOUNTER 2022-02-26 21:23 | Emergency (ER) | payer OTHER ==
--- OUTSIDE RECORDS SUMMARY | 2022-02-26 21:26 | XMS REPORT | Continuity of Care Document ---
:1970 Author Organization [facility] t Address [address] [place] [address] Care Team Providers Name Role Phone Unavailable Unavailable Unavailable Problems This patient has no known problems. Allergies, Adverse Reactions, Alerts This patient has no known allergies or adverse reactions. Medications This patient has no known medications. Procedures This patient has no known procedures. Results This patient has no known results.
--- NOTE | 2022-02-26 21:45 | RAD REPORT ---
EXAM DESCRIPTION: CT - Ct Stroke Brain Wo Cont - 02/26/2022 9:34 pm CLINICAL HISTORY: headache COMPARISON: January 2022 TECHNIQUE: Computed axial tomography of the head was obtained. All CT scans are performed using dose optimization technique as appropriate and may include automated exposure control or mA/KV adjustment according to patient size. FINDINGS: An intracranial bleed is not seen . The ventricles are normal in caliber. No extra-axial fluid collection is noted. No significant hypodense areas within the brain Fluid within the sinuses/ mastoids is not seen. IMPRESSION: No acute intracranial abnormality is seen. If patient's symptoms persist MRI of the bra in would be recommended. Maxwell Ibrahim of the emergency room was notified at 9:40 p.m. February 26, 2022
[2022-02-26 21:52] LABS: Absolute Lymphocytes (CBC) 2.8 K/uL (0.7-4.9); Hematocrit 38.5 % (39.6-49.0); Lymphocytes % 37.2 % (15.3-44.8); MPV 8.3 fL (7.6-11.3); RBC Red Blood Cell Count 4.24 M/uL (4.33-5.43)
--- NOTE | 2022-02-26 21:53 | RAD REPORT ---
EXAM DESCRIPTION: Sylwia Single View02/26/2022 9:44 pm CLINICAL HISTORY: Cough COMPARISON: 2020 FINDINGS: The lungs appear clear of acute infiltrate. The heart is normal size IMPRESSION: No acute abnormalities displayed
[2022-02-26 22:00] LABS: Protime INR 0.97
[2022-02-26] MEDS ORDERED: NA CHLORIDE 0.9% 1,000 ML ONE (22:10)
[2022-02-26 22:12] LABS: ALT/SGPT 47 U/L (12-78); AST/SGOT 19 U/L (15-37); Albumin 3.7 g/dL (3.4-5.0); Alkaline Phosphatase 61 U/L (45-117); BUN Blood Urea Nitrogen 11 mg/dL (7-18); Bicarbonate 27 mmol/L (21-32); Bilirubin Total 0.2 mg/dL (0.2-1.0); Glucose Level 116 mg/dL (74-106); Magnesium 1.8 mg/dL (1.8-2.4); NT PRO-BNP 15 pg/mL (<125); Potassium 3.5 mmol/L (3.5-5.1); Protein, Total 6.9 g/dL (6.4-8.2); Sodium Level 141 mmol/L (136-145); Troponin High Sensitivity 4.2 pg/mL (<58.9)
[2022-02-26 22:29] LABS: Bilirubin Direct < 0.1 mg/dL (0-0.2)
--- NOTE | 2022-02-27 00:59 | ER ---
Nurse's Notes [facility] Name: Chi Kelley Age: 52 yrs Sex: Male : 1970 Arrival Date: 02/26/2022 Time: 21:27 Bed 15 Private MD: Diagnosis: Abdominal pain, Generalized;Headache;Anorexia;Fatty (change of) liver, not elsewhere classified Presentation: 02/26 21:40 Chief complaint: Patient states: started having a headache that radiates down his left sm5 arm about 4-5 days ago. pt presenting with L sided arm and leg weakness and decreased sensation. pt has laceration to L side of forehead, states he fell but does not remember when. Coronavirus screen: Vaccine status: Patient reports being unvaccinated. Ebola Screen: No symptoms or risks identified at this time. Initial Sepsis Screen: Does the patient meet any 2 criteria? No. Patient's initial sepsis screen is negative. Does the patient have a suspected source of infection? No. Patient's initial sepsis screen is negative. Risk Assessment: Do you want to hurt yourself or someone else? Patient reports no desire to harm self or others. Onset of symptoms was February 22, 2022. 21:40 Method Of Arrival: EMS: [facility] 21:40 Acuity: DORIAN 3 sm5 Triage Assessment: 21:48 General: Appears in no apparent distress. Behavior is cooperative. Pain: Complains of sm5 pain in head. 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 Reports dizziness, headache in left frontal area. Cardiovascular: No deficits noted. Capillary refill < 3 seconds Patient's skin is warm and dry. Respiratory: No deficits noted. Airway is patent Trachea midline Respiratory effort is even, unlabored. Historical: - Allergies: 21:46 No Known Allergies; sm5 - Home Meds: 21:46 Flexeril 10 mg Oral tab 1 tab daily [Active]; trazodone 50 mg Oral tab 1 tab nightly sm5 [Active]; Zoloft Oral [Active]; - PMHx: 21:46 Anxiety; chronic back pain; Chronic obstructive lung disease; COPD; Glaucoma; sm5 Hypothyroidism; Pre-Diabetes; - PSHx: 21:46 Cholecystectomy; sm5 - Immunization history:: Client reports having NOT received the Covid vaccine. Flu vaccine is not up to date. - Social history:: Smoking status: Patient reports the use of cigarette tobacco products, denies chronic smoking, but will smoke occasionally, Patient/guardian denies using alcohol, street drugs. - Family history:: not pertinent. Screenin:47 Abuse screen: Denies threats or abuse. Denies injuries from another. Nutritional sm5 screening: No deficits noted. Tuberculosis screening: No symptoms or risk factors identified. Fall Risk None identified. Assessment: 22:00 Reassessment: see triage assessment. sm5 23:00 Reassessment: No changes from previously documented assessment. Patient and/or family sm5 updated on plan of care and expected duration. Pain level reassessed. 02/27 01:23 Reassessment: Patient states feeling better. Patient states symptoms have improved. 5 Vital Signs: 02/26 21:40 BP 136 / 81; Pulse 83; Resp 14; Pulse Ox 99% on R/A; Weight 86.18 kg; Height 5 ft. 9 sm5 in. (175.26 cm); Pain 10/10; 22:00 BP 123 / 79; Pulse 75; Resp 14; Pulse Ox 97% on R/A; sm5 23:35 BP 124 / 68; Pulse 68; Resp 15; Pulse Ox 98% on R/A; sm5 02/27 00:30 BP 115 / 70; Pulse 66; Resp 18; Pulse Ox 99% on R/A; sm5 00:30 BP 111 / 70; Pulse 69; Resp 18; Pulse Ox 99% on R/A; sm5 02/26 21:40 Body Mass Index 28.06 (86.18 kg, 175.26 cm) 5 ED Course: 02/26 21:27 Patient arrived in ED. mw2 21:28 Ian Rhoades MD is Attending Physician. paige 21:36 Ct Stroke Brain Wo Cont In Process Unspecified. EDMS 21:40 Rufina Michaels RN is Primary Nurse. 5 21:45 Inserted saline lock: 20 gauge in right antecubital area, using aseptic technique. 5 Blood collected. 21:46 XRAY Chest (1 view) In Process Unspecified. EDMS 21:46 Triage completed. sm5 21:47 Arm band placed on right wrist. sm5 21:47 Patient has correct armband on for positive identification. Bed in low position. Call 5 light in reach. Side rails up X2. Client placed on continuous cardiac and pulse oximetry monitoring. NIBP monitoring applied. 21:49 Basic Metabolic Panel Sent. sm5 21:50 CBC with Diff Sent. sm5 21:50 LFT's Sent. sm5 21:50 Magnesium Sent. sm5 21:50 NT PRO-BNP Sent. sm5 21:50 PT-INR Sent. sm5 21:50 Troponin HS Sent. sm5 02/27 00:12 Abdomen In Process Unspecified. EDMS 00:57 Brian Santos MD is Referral Physician. [facility] 01:22 No provider procedures requiring assistance completed. IV discontinued, intact, sm5 bleeding controlled, No redness/swelling at site. Pressure dressing applied. Administered Medications: 02/26 22:11 Drug: NS 0.9% 1000 ml Route: IV; Rate: 1000 ml; Site: right antecubital; 5 02/27 01:04 Follow up: IV Status: Completed infusion; IV Intake: 1000ml 5 Medication: 01:22 VIS not applicable for this client. sm5 Intake: 01:04 IV: 1000ml; Total: 1000ml. [facility] Outcome: 00:58 Discharge ordered by . [facility] 01:22 Discharged to home ambulatory. 5 01:22 Condition: stable 01:22 Discharge instructions given to patient, Instructed on discharge instructions, follow up and referral plans. medication usage, Demonstrated understanding of instructions, follow-up care, medications, Prescriptions given X 1. 01:41 Patient left the ED. 5 Signatures: Dispatcher [employer] EDIan Engle MD MD cha Westbrook, Juanita 2 Rufina Michaels, RN RN 5
--- NOTE | 2022-02-27 00:59 | EDPHYS ---
Physician Documentation [facility] Name: Chi Kelley Age: 52 yrs Sex: Male : 1970 Arrival Date: 02/26/2022 Time: 21:27 Bed 15 Private MD: ED Physician Ian Rhoades HPI: 02/26 22:21 This 52 yrs old Male presents to ER via EMS with complaints of abd pain , paige weak and headache. 22:21 The patient complains of pain to the forehead. The patient describes the headache as paige aching. Onset: The symptoms/episode began/occurred 3 day(s) ago. The patient presents with abdominal pain in the lower abdomen, abdominal distention in the upper abdomen, in the lower abdomen. Onset: The symptoms/episode began/occurred 3 day(s) ago. weak , no appetite and headache. Associated signs and symptoms: Pertinent positives: dizziness, weakness. Severity of symptoms: At its worst the pain was mild, in the emergency department the pain is unchanged. Headache History: The patient has had previous headaches and this one is similar to previous episodes. The symptoms do not radiate. Historical: - Allergies: 21:46 No Known Allergies; sm5 - Home Meds: 21:46 Flexeril 10 mg Oral tab 1 tab daily [Active]; trazodone 50 mg Oral tab 1 tab nightly sm5 [Active]; Zoloft Oral [Active]; - PMHx: 21:46 Anxiety; chronic back pain; Chronic obstructive lung disease; COPD; Glaucoma; sm5 Hypothyroidism; Pre-Diabetes; - PSHx: 21:46 Cholecystectomy; sm5 - Immunization history:: Client reports having NOT received the Covid vaccine. Flu vaccine is not up to date. - Social history:: Smoking status: Patient reports the use of cigarette tobacco products, denies chronic smoking, but will smoke occasionally, Patient/guardian denies using alcohol, street drugs. - Family history:: not pertinent. ROS: 22:21 Constitutional: Negative for fever, chills, and weight loss, Eyes: Negative for injury, paige pain, redness, and discharge, ENT: Negative for injury, pain, and discharge, Neck: Negative for injury, pain, and swelling, Cardiovascular: Negative for chest pain, palpitations, and edema, Respiratory: Negative for shortness of breath, cough, wheezing, and pleuritic chest pain, Back: Negative for injury and pain, : Negative for injury, bleeding, discharge, and swelling, MS/Extremity: Negative for injury and deformity, Skin: Negative for injury, rash, and discoloration, Neuro: Negative for headache, weakness, numbness, tingling, and seizure, Psych: Negative for depression, anxiety, suicide ideation, homicidal ideation, and hallucinations, Allergy/Immunology: Negative for hives, rash, and allergies, Endocrine: Negative for neck swelling, polydipsia, polyuria, polyphagia, and marked weight changes, Hematologic/Lymphatic: Negative for swollen nodes, abnormal bleeding, and unusual bruising. 22:21 Abdomen/GI: Positive for abdominal pain, abdominal cramps, of the right lower quadrant and left lower quadrant. Exam: 22:21 Constitutional: This is a well developed, well nourished patient who is awake, alert, paige and in no acute distress. Head/Face: Normocephalic, atraumatic. Eyes: Pupils equal round and reactive to light, extra-ocular motions intact. Lids and lashes normal. Conjunctiva and sclera are non-icteric and not injected. Cornea within normal limits. Periorbital areas with no swelling, redness, or edema. ENT: Nares patent. No nasal discharge, no septal abnormalities noted. Tympanic membranes are normal and external auditory canals are clear. Oropharynx with no redness, swelling, or masses, exudates, or evidence of obstruction, uvula midline. Mucous membranes moist. Neck: Trachea midline, no thyromegaly or masses palpated, and no cervical lymphadenopathy. Supple, full range of motion without nuchal rigidity, or vertebral point tenderness. No Meningismus. Chest/axilla: Normal chest wall appearance and motion. Nontender with no deformity. No lesions are appreciated. Cardiovascular: Regular rate and rhythm with a normal S1 and S2. No gallops, murmurs, or rubs. Normal PMI, no JVD. No pulse deficits. Respiratory: Lungs have equal breath sounds bilaterally, clear to auscultation and percussion. No rales, rhonchi or wheezes noted. No increased work of breathing, no retractions or nasal flaring. Back: No spinal tenderness. No costovertebral tenderness. Full range of motion. Male : Normal genitalia with no discharge or lesions. Skin: Warm, dry with normal turgor. Normal color with no rashes, no lesions, and no evidence of cellulitis. MS/ Extremity: Pulses equal, no cyanosis. Neurovascular intact. Full, normal range of motion. Neuro: Awake and alert, GCS 15, oriented to person, place, time, and situation. Cranial nerves II-XII grossly intact. Motor strength 5/5 in all extremities. Sensory grossly intact. Cerebellar exam normal. Normal gait. Psych: Awake, alert, with orientation to person, place and time. Behavior, mood, and affect are within normal limits. 22:21 ECG was reviewed by the Attending Physician. 22:21 Abdomen/GI: Inspection: abdomen appears normal, Bowel sounds: normal, Palpation: moderate abdominal tenderness, in all quadrants, Liver: is firm, Hernia: not appreciated. Vital Signs: 21:40 BP 136 / 81; Pulse 83; Resp 14; Pulse Ox 99% on R/A; Weight 86.18 kg; Height 5 ft. 9 5 in. (175.26 cm); Pain 10/10; 22:00 BP 123 / 79; Pulse 75; Resp 14; Pulse Ox 97% on R/A; 5 23:35 BP 124 / 68; Pulse 68; Resp 15; Pulse Ox 98% on R/A; [facility] 05 00:30 BP 115 / 70; Pulse 66; Resp 18; Pulse Ox 99% on R/A; 5 00:30 BP 111 / 70; Pulse 69; Resp 18; Pulse Ox 99% on R/A; [facility] 02/26 21:40 Body Mass Index 28.06 (86.18 kg, 175.26 cm) [facility] MDM: 02/26 21:28 Patient medically screened. [facility] 22:25 Data reviewed: vital signs, nurses notes, lab test result(s), EKG, radiologic studies, [facility] CT scan, plain films. ED course: weak, nichole and anorexia. 02/26 21:29 Order name: Basic Metabolic Panel; Complete Time: 22:40 [facility] 02/26 21:29 Order name: CBC with Diff; Complete Time: 22:17 [facility] 02/26 21:29 Order name: LFT's; Complete Time: 22:40 [facility] 02/26 21:29 Order name: Magnesium; Complete Time: 22:40 [facility] 02/26 21:29 Order name: NT PRO-BNP; Complete Time: 22:40 [facility] 02/26 21:29 Order name: PT-INR; Complete Time: 22:17 [facility] 02/26 21:29 Order name: Troponin HS; Complete Time: 22:40 [facility] 02/26 21:29 Order name: XRAY Chest (1 view); Complete Time: 22:17 [facility] 02/26 21:33 Order name: Ct Stroke Brain Wo Cont; Complete Time: 22:17 [facility] 02/26 21:58 Order name: Glucose, Ancillary Testing; Complete Time: 22:17 [facility] 02/26 22:18 Order name: Lipase; Complete Time: 23:02 [facility] 02/26 21:29 Order name: EKG; Complete Time: 21:30 [facility] 02/26 21:29 Order name: Cardiac monitoring; Complete Time: 21:49 [facility] 02/26 21:29 Order name: EKG - Nurse/Tech; Complete Time: 21:57 [facility] 02/26 21:29 Order name: IV Saline Lock; Complete Time: 21:49 [facility] 02/26 21:29 Order name: Labs collected and sent; Complete Time: 21:49 [facility] 02/26 21:29 Order name: O2 Per Protocol; Complete Time: 21:49 [facility] 02/26 21:29 Order name: O2 Sat Monitoring; Complete Time: 21:49 [facility] 02/26 21:29 Order name: Urine Dipstick-Ancillary (obtain specimen) [facility] 02/26 23:24 Order name: Abdomen EDMS EC:21 Rate is 83 beats/min. Rhythm is regular. QRS Igo is Normal. MA interval is normal. QRS paige interval is normal. QT interval is normal. No Q waves. T waves are Normal. No ST changes noted. Clinical impression: Normal ECG and No evidence of ischemia. Interpreted by me. Reviewed by me. Administered Medications: 22:11 Drug: NS 0.9% 1000 ml Route: IV; Rate: 1000 ml; Site: right antecubital; [facility] 02/27 01:04 Follow up: IV Status: Completed infusion; IV Intake: 1000ml [facility] Disposition Summary: 02/27/22 00:58 Discharge Ordered Location: Home paige Problem: new paige Symptoms: have improved paige Condition: Stable paige Diagnosis - Abdominal pain, Generalized paige - Headache paige - Anorexia paige - Fatty (change of) liver, not elsewhere classified paige Followup: paige - With: Private Physician - When: 2 - 3 days - Reason: Recheck today's complaints, Continuance of care, Re-evaluation by your physician Followup: paige - With: - When: 2 - 3 days - Reason: Recheck today's complaints, Re-evaluation by your physician Discharge Instructions: - Discharge Summary Sheet paige - Abdominal Pain, Adult paige - General Headache Without Cause paige - Abdominal Pain, Adult, Pram-gy-Oenw paige - General Headache Without Cause, Nauy-lo-Ihqd paige - Nonalcoholic Fatty Liver Disease Diet, Adult paige Forms: - Medication Reconciliation Form paige - Thank You Letter paige - Antibiotic Education paige - Prescription Opioid Use [facility] Prescriptions: - Zofran 4 mg Oral Tablet - take 1 tablet by ORAL route every 12 hours As needed; 20 tablet; Refills: 0, paige Product Selection Permitted Signatures: Dispatcher [employer] Ian Rogers MD MD cha Mazur, Sarah RN RN sm5 Corrections: (The following items were deleted from the chart) 02/26 21:38 21:34 Head Brain Wo Cont+CT.RAD.BRZ ordered. EDMS EDMS
[2022-02-27 05:58] VITALS: BP 111/70; O2SAT 99
--- NOTE | 2022-02-27 11:36 | RAD REPORT ---
EXAM DESCRIPTION: CT - Abdomen Pelvis W Contrast - 02/27/2022 1:49 am CLINICAL HISTORY: The patient is 52 years old and is Male; abdominal pain TECHNIQUE: Axial computed tomography images of the abdomen and pelvis with intravenous contrast. S agittal and coronal reformatted images were created and reviewed. This CT exam was performed using one or more of the following dose reduction techniques: automated exposure control, adjustment of t he mA and/or kV according to patient size, and/or use of iterative reconstruction technique. DLP: 2082 mGy*cm COMPARISON: CT abdomen and pelvis dated 12/23/2021. FINDINGS: LUNG BASES: Bibasilar atelectasis or scarring. No focal consolidation. Visualized heart is normal. ABDOMEN: LIVER: Hepatic steatosis. GALLBLADDER AND BILE DUCTS: Prior cholecystectomy with ductal dilatation. PANCREAS: Unremarkable. No mass. No ductal dilation. SPLEEN: Unremarkable. No splenomegaly. ADRENALS: Unremarkable. No mass. KIDNEYS AND URETERS: Nonobstructive left renal stone measuring 3.6 mm. STOMACH AND BOWEL: Unremarkable. No obstruction. No mucosal thickening. PELVIS: APPENDIX: The appendix is seen and is within normal limits. BLADDER: Unremarkable. No mass. REPRODUCTIVE: Unremarkable as visualized. ABDOMEN and PELVIS: INTRAPERITONEAL SPACE: Unremarkable. No free air. No significant fluid collection. BONES/JOINTS: Multilevel degenerative changes. Disc herniation at L3-4 with spinal canal narrowing . No acute fracture. No dislocation. SOFT TISSUES: Prior left inguinal hernia repair. VASCULATURE: Mild atherosclerotic vascular calcifications. No abdominal aortic aneurysm. LYMPH NODES: Unremarkable. No enlarged lymph nodes. IMPRESSION: 1. No acute abdominal or pelvic abnormality. 2. Hepatic steatosis. 3. Nonobstructive left renal stone measuring 3.6 mm. Electronically signed by: Nahun Hilliard DO 02/27/2022 12:35 AM CDT Due to temporary technical issues with the PACS/Fluency reporting system, reports are being signed by the in house radiologist without review as a courtesy to ensure prompt reporting. The interpreting r adiologist is fully responsible for the content of the report.
--- NOTE | 2022-02-28 14:53 | EKG ---
Test Date: 2022-02-26 Test Time: 21:56:41 Labeling Machine Operator: YOSELIN MEASUREMENT RESULTS: Intervals: Rate: 77 NV: 180 QRSD: 84 QT: 368 QTc: 416 [place]: P: 38 NV: 180 QRS: 16 T: 16 INTERPRETIVE STATEMENTS: Normal sinus rhythm Minimal voltage criteria for LVH, may be normal variant Borderline ECG Compared to ECG 01/16/2022 19:49:46 No significant changes Electronically Signed On 02-28-22 14:53:14 CDT by Tremayne An
== END 2022-02-27 01:41 | disposition home or self-care (01) ==
LOC: ER 21:23
DX: R10.84 Generalized abdominal pain (principal); R51.9 Headache, unspecified; R63.0 Anorexia; K76.0 Fatty (change of) liver, not elsewhere classified; E03.9 Hypothyroidism, unspecified; R73.03 Prediabetes; F41.9 Anxiety disorder, unspecified; F17.210 Nicotine dependence, cigarettes, uncomplicated
CPT/HCPCS: 96361; 93005; 85025; 80048; 36415; 83735; 85610; 82947; 80076; 84484; 83690; 83880; 74177; 70450; 71045; 96360; 99284; Q9967; J7030

== ENCOUNTER 2022-04-20 14:07 | Emergency (ER) | payer OTHER ==
[2022-04-20] MEDS ORDERED: NA CHLORIDE 0.9% 1,000 ML ONE (14:35)
[2022-04-20] MEDS ORDERED: ONDANSETRON 4 MG/2 ML VIAL ONE (14:35)
[2022-04-20] MEDS ORDERED: MORPHINE 4 MG/ML SYR ONE (14:35)
[2022-04-20 14:42] LABS: Urine Blood 3+ (Negative); Urine Glucose Negative (Negative); Urine Protein 2+ (Negative); Urine Specific Gravity >=1.030 (1.005-1.030); Urine pH 5.5 (5.0-7.0)
[2022-04-20 14:47] LABS: Absolute Lymphocytes (CBC) 2.3 K/uL (0.7-4.9); Lymphocytes % 27.8 % (15.3-44.8); MPV 8.5 fL (7.6-11.3); RBC Red Blood Cell Count 4.78 M/uL (4.33-5.43)
--- NOTE | 2022-04-20 14:51 | RAD REPORT ---
EXAM DESCRIPTION: CT - Stone Protocol - 04/20/2022 2:41 pm CLINICAL HISTORY: left flank pain COMPARISON: Abdomen Pelvis W Contrast dated 02/26/2022 TECHNIQUE: Axial 3 mm thick images were obtained without oral or IV contrast. The [id number] span s the entirety of the system including uppermost abdomen and lung bases. All CT scans are performed using dose optimization technique as appropriate and may include automated exposure control or mA/KV adjustment according to patient size. FINDINGS: Mild hydronephrosis of the left pelvis and calices noted secondary to a 6 mm UPJ calculus. 1 mm and 3 mm nonobstructing calyx calculi in the lower pole of the left kidney with 2 mm lower pole calcification right kidney. No right-sided hydronephrosis. No suspicious renal masses. Isodense mass es and pyelonephritis are not excluded on a stone protocol CT scan. No significant adrenal finding. U rinary bladder is contracted. No bladder calculi. Numerous pelvic floor phleboliths are present. Imaged portions of the liver, spleen and pancreas show no suspicious findings on non-contrast imaging . Liver shows fatty infiltration attenuation pattern. Cholecystectomy clips are present. No biliary t ree dilatation. No suspicious bowel findings. Appendix is normal. No hernia, mass or bulky lymphadenopathy noted. Left inguinal hernia repair changes are present. Fat extends minimally into the right inguinal canal. No free air, free fluid or inflammatory stranding. No significant bony abnormality. IMPRESSION: Mild left-sided renal pelvic and talus seal dilatation secondary to 6 mm obstructing UPJ calculus. Additional nonobstructing bilateral calyx calculi are present. Isodense masses and pyelonephritis are not excluded on stone protocol technique.
[2022-04-20 15:01] LABS: Albumin 3.9 g/dL (3.4-5.0); Bilirubin Total 0.4 mg/dL (0.2-1.0); Potassium 3.9 mmol/L (3.5-5.1); Protein, Total 7.4 g/dL (6.4-8.2)
[2022-04-20] MEDS ORDERED: TAMSULOSIN 0.4 MG SR CAP ONE (15:34)
[2022-04-20] MEDS ORDERED: CIPROFLOXACIN HCL 500 MG TAB ONE (15:34)
[2022-04-20] MEDS ORDERED: KETOROLAC 30 MG/ML INJ ONE (15:34)
--- NOTE | 2022-04-20 15:38 | EDPHYS ---
Physician Documentation [facility] Name: Chi Kelley Age: 52 yrs Sex: Male : 1970 Arrival Date: 04/20/2022 Time: 14:16 Bed 17 Private MD: ED Physician Jaime Benitez HPI: 04/20 14:26 This 52 yrs old Male presents to ER via EMS with complaints of Flank Pain. pm1 14:26 The patient complains of pain in the left low back. The pain radiates to the left lower pm1 quadrant. Onset: The symptoms/episode began/occurred this morning. Modifying factors: The symptoms are alleviated by nothing. the symptoms are aggravated by nothing. Associated signs and symptoms: Pertinent positives: nausea, Pertinent negatives: dysuria, fever, urinary frequency, hematuria, vomiting. Severity of pain: in the emergency department the pain is actually worse. The patient has not experienced similar symptoms in the past. The patient has not recently seen a physician. Historical: - Allergies: 14:19 No Known Allergies; bp - Home Meds: 14:19 Flexeril 10 mg Oral tab 1 tab daily [Active]; trazodone 50 mg Oral tab 1 tab nightly bp [Active]; Zoloft Oral [Active]; - PMHx: 14:19 Anxiety; chronic back pain; Chronic obstructive lung disease; COPD; Glaucoma; bp Hypothyroidism; Pre-Diabetes; - PSHx: 14:19 Cholecystectomy; bp - Immunization history:: Adult Immunizations up to date. - Social history:: Smoking status: Patient reports the use of cigarette tobacco products, unknown amount. ROS: 14:26 Constitutional: Negative for fever, chills, and weight loss, Cardiovascular: Negative pm1 for chest pain, palpitations, and edema, Respiratory: Negative for shortness of breath, cough, wheezing, and pleuritic chest pain. 14:26 : Negative for injury, bleeding, discharge, and swelling, MS/Extremity: Negative for injury and deformity, Skin: Negative for injury, rash, and discoloration, Neuro: Negative for headache, weakness, numbness, tingling, and seizure. 14:26 Abdomen/GI: Positive for nausea, Negative for abdominal pain, vomiting. 14:26 Back: Positive for flank pain, on the left. 14:26 All other systems are negative. Exam: 14:26 Constitutional: This is a well developed, well nourished patient who is awake, alert, pm1 and in no acute distress. Head/Face: Normocephalic, atraumatic. 14:26 Skin: Warm, dry with normal turgor. Normal color with no rashes, no lesions, and no evidence of cellulitis. MS/ Extremity: Pulses equal, no cyanosis. Neurovascular intact. Full, normal range of motion. 14:26 Eyes: Exam is negative for acute changes, Periorbital structures: appear normal, Pupils: no acute changes, Extraocular movements: no acute changes, Conjunctiva: no acute changes, no injection. 14:26 ENT: Exam is negative for acute changes, Mouth: no acute changes, Lips: normal, moist, Oral mucosa: normal, pink and intact, moist. 14:26 Cardiovascular: Exam negative for acute changes, Rate: normal, Rhythm: regular, Pulses: no pulse deficits are appreciated. 14:26 Respiratory: Exam negative for acute changes, respiratory distress, shortness of breath. 14:26 Abdomen/GI: Exam negative for acute changes, Inspection: abdomen appears normal, Palpation: abdomen is soft and non-tender, in all quadrants. 14:26 Back: CVA tenderness, that is mild, is noted on the left. 14:26 Neuro: Exam negative for acute changes, Orientation: is normal, Mentation: is normal, Motor: is normal, moves all fours. Vital Signs: 14:16 BP 123 / 83; Pulse 85; Resp 16; Temp 98; Pulse Ox 95% on R/A; bp 16:25 BP 121 / 79; Pulse 53; Resp 16; Pulse Ox 98% ; bp MDM: 14:20 Patient medically screened. pm1 15:02 Data reviewed: vital signs. Data interpreted: Pulse oximetry: on room air is 95 %. pm1 Interpretation: normal. 15:36 Counseling: I had a detailed discussion with the patient and/or guardian regarding: the pm1 historical points, exam findings, and any diagnostic results supporting the discharge/admit diagnosis, lab results, radiology results, the need for outpatient follow up, a urologist, to return to the emergency department if symptoms worsen or persist or if there are any questions or concerns that arise at home. 16:23 ED course: PMP[place] reviewed. pm1 04/20 14:24 Order name: CBC with Diff; Complete Time: 15:01 pm1 04/20 14:24 Order name: CMP; Complete Time: 15:01 pm1 04/20 14:24 Order name: Lipase; Complete Time: 15:01 pm1 04/20 14:24 Order name: CT Stone Protocol; Complete Time: 15:01 pm1 04/20 14:42 Order name: Urine Dipstick-Ancillary; Complete Time: 15:01 EDMS 04/20 14:24 Order name: IV Saline Lock; Complete Time: 14:38 pm1 04/20 14:24 Order name: Labs collected and sent; Complete Time: 14:38 pm1 04/20 14:24 Order name: Urine Dipstick-Ancillary (obtain specimen); Complete Time: 14:51 pm1 Administered Medications: 14:35 Drug: Zofran (Ondansetron) 4 mg Route: IVP; Site: right antecubital; bp 16:27 Follow up: Response: No adverse reaction bp 14:35 Drug: morphine 4 mg Route: IVP; Infused Over: 4 mins; Site: right antecubital; bp 16:28 Follow up: Response: Pain is decreased bp 14:35 Drug: NS 0.9% 1000 ml Route: IV; Rate: 1000 ml; Site: right antecubital; bp 16:27 Follow up: IV Status: Completed infusion; IV Intake: 1000ml bp 15:20 Drug: Ketorolac 30 mg Route: IVP; Site: right antecubital; bp 16:27 Follow up: Response: No adverse reaction bp 15:20 Drug: Flomax (tamsulosin) 0.4 mg Route: PO; bp 16:28 Follow up: Response: No adverse reaction bp 15:20 Drug: Cipro (ciprofloxacin) 500 mg Route: PO; bp 16:28 Follow up: Response: No adverse reaction bp Disposition: 16:35 Co-signature as Attending Physician, Jaime Benitez MD I agree with the assessment and kdr plan of care. Disposition Summary: 04/20/22 15:38 Discharge Ordered Location: Home pm1 Problem: new pm1 Symptoms: have improved pm1 Condition: Stable pm1 Diagnosis - Calculus of kidney with calculus of ureter pm1 Followup: pm1 - With: Emergency Department - When: As needed - Reason: Worsening of condition Followup: pm1 - With: Private Physician - When: 2 - 3 days - Reason: Recheck today's complaints, Continuance of care, Re-evaluation by your physician Discharge Instructions: - Discharge Summary Sheet pm1 - Kidney Stones pm1 - Dietary Guidelines to Help Prevent Kidney Stones pm1 Forms: - Medication Reconciliation Form pm1 - Thank You Letter pm1 - Antibiotic Education pm1 - Prescription Opioid Use pm1 Prescriptions: - ondansetron 4 mg Oral tablet,disintegrating - place 1 tablet by TRANSLINGUAL route every 8 hours As needed; 15 tablet; pm1 Refills: 0, Product Selection Permitted - Cipro 500 mg Oral Tablet - take 1 tablet by ORAL route every 12 hours for 7 days; 14 tablet; Refills: 0, pm1 Product Selection Permitted - Flomax 0.4 mg Oral capsule - take 1 capsule by ORAL route once daily 1/2 hour following the same meal each pm1 day; 10 capsule; Refills: 0, Product Selection Permitted - Tylenol-Codeine #3 300 mg-30 mg Oral - take 2 tablet by ORAL route every 6 hours As needed; 20 tablet; Refills: 0, pm1 Product Selection Permitted Signatures: Dispatcher [employer] Jaime Hannah MD MD [facility] Luis Angel Suazo NP HEAD LIBRARIAN pm1 Herb Lay, RN RN bp
--- NOTE | 2022-04-20 15:38 | ER ---
Nurse's Notes [facility] Name: Chi Kelley Age: 52 yrs Sex: Male : 1970 Arrival Date: 04/20/2022 Time: 14:16 Bed 17 Private MD: Diagnosis: Calculus of kidney with calculus of ureter Presentation: 04/20 14:16 Chief complaint: EMS states: LEFT FLANK PAIN RADIATING TO LLQ. Coronavirus screen: At bp this time, the client does not indicate any symptoms associated with coronavirus-19. Ebola Screen: No symptoms or risks identified at this time. Initial Sepsis Screen: Does the patient meet any 2 criteria? No. Patient's initial sepsis screen is negative. Does the patient have a suspected source of infection? No. Patient's initial sepsis screen is negative. Risk Assessment: Do you want to hurt yourself or someone else? Patient reports no desire to harm self or others. Onset of symptoms was April 20, 2022. 14:16 Method Of Arrival: EMS: [facility] bp 14:16 Acuity: DORIAN 3 bp Triage Assessment: 14:19 General: Appears distressed, uncomfortable, Behavior is cooperative, appropriate for bp age, anxious. Pain: Complains of pain in left flank. EENT: No deficits noted. Neuro: No deficits noted. Cardiovascular: No deficits noted. Respiratory: No deficits noted. GI: No signs and/or symptoms were reported involving the gastrointestinal system. : Reports pain in left flank(s), urinary frequency. Derm: No deficits noted. Musculoskeletal: No deficits noted. Historical: - Allergies: 14:19 No Known Allergies; bp - Home Meds: 14:19 Flexeril 10 mg Oral tab 1 tab daily [Active]; trazodone 50 mg Oral tab 1 tab nightly bp [Active]; Zoloft Oral [Active]; - PMHx: 14:19 Anxiety; chronic back pain; Chronic obstructive lung disease; COPD; Glaucoma; bp Hypothyroidism; Pre-Diabetes; - PSHx: 14:19 Cholecystectomy; bp - Immunization history:: Adult Immunizations up to date. - Social history:: Smoking status: Patient reports the use of cigarette tobacco products, unknown amount. Screenin:20 Abuse screen: Denies threats or abuse. Denies injuries from another. Nutritional bp screening: No deficits noted. Tuberculosis screening: No symptoms or risk factors identified. Fall Risk None identified. Assessment: 14:20 General: SEE TRIAGE NOTE. bp 16:25 Reassessment: PT D/C HOME AMBULATORY WITH FAMILY, DX WITH RENAL CALCULUS. bp Vital Signs: 14:16 BP 123 / 83; Pulse 85; Resp 16; Temp 98; Pulse Ox 95% on R/A; bp 16:25 BP 121 / 79; Pulse 53; Resp 16; Pulse Ox 98% ; bp ED Course: 14:16 Patient arrived in ED. bp 14:18 Luis Angel Suazo NP is PHCP. pm1 14:18 Jaime Benitez MD is Attending Physician. pm1 14:18 Triage completed. bp 14:19 Arm band placed on. bp 14:20 Patient has correct armband on for positive identification. Bed in low position. Call bp light in reach. Side rails up X2. 14:25 Herb Lay, RN is Primary Nurse. bp 14:37 Initial lab(s) drawn, by ga, sent to lab. Inserted saline lock: 20 gauge in right jw7 antecubital area, using aseptic technique. Blood collected. 14:43 CT Stone Protocol In Process Unspecified. EDMS 16:25 No provider procedures requiring assistance completed. IV discontinued, intact, bp bleeding controlled, No redness/swelling at site. Pressure dressing applied. Administered Medications: 14:35 Drug: Zofran (Ondansetron) 4 mg Route: IVP; Site: right antecubital; bp 16:27 Follow up: Response: No adverse reaction bp 14:35 Drug: morphine 4 mg Route: IVP; Infused Over: 4 mins; Site: right antecubital; bp 16:28 Follow up: Response: Pain is decreased bp 14:35 Drug: NS 0.9% 1000 ml Route: IV; Rate: 1000 ml; Site: right antecubital; bp 16:27 Follow up: IV Status: Completed infusion; IV Intake: 1000ml bp 15:20 Drug: Ketorolac 30 mg Route: IVP; Site: right antecubital; bp 16:27 Follow up: Response: No adverse reaction bp 15:20 Drug: Flomax (tamsulosin) 0.4 mg Route: PO; bp 16:28 Follow up: Response: No adverse reaction bp 15:20 Drug: Cipro (ciprofloxacin) 500 mg Route: PO; bp 16:28 Follow up: Response: No adverse reaction bp Medication: 14:20 VIS not applicable for this client. bp Intake: 16:27 IV: 1000ml; Total: 1000ml. bp Outcome: 15:38 Discharge ordered by . pm1 16:25 Discharged to home ambulatory, with family. bp 16:25 Condition: stable 16:25 Discharge instructions given to patient, Instructed on discharge instructions, follow up and referral plans. medication usage, Demonstrated understanding of instructions, follow-up care, medications, Prescriptions given X 4. 16:28 Patient left the ED. bp Signatures: Dispatcher [employer] EDMS Luis Angel Suazo NP BEAVER TRAPPER pm1 Herb Lay, RN RN bp Sheba Clements jw7
[2022-04-20 16:43] VITALS: TEMP 98
[2022-04-20 16:45] VITALS: BP 121/79; O2SAT 98
== END 2022-04-20 16:28 | disposition home or self-care (01) ==
LOC: ER 14:07
DX: N20.2 Calculus of kidney with calculus of ureter (principal); R10.32 Left lower quadrant pain; M54.50 Low back pain, unspecified; F41.9 Anxiety disorder, unspecified; Z72.0 Tobacco use
CPT/HCPCS: 85025; 36415; 81003; 83690; 80053; 76377; 74176; J7030; J2405; 96361; 96374; 96375; 99284

== ENCOUNTER 2023-01-06 20:30 | Emergency (ER) | payer OTHER ==
--- OUTSIDE RECORDS SUMMARY | 2023-01-06 20:34 | XMS REPORT | Continuity of Care Document ---
:1970 Author Organization [facility] t Address [address] [place] [address] Care Team Providers Name Role Phone Asked, No Pcp Primary Care Physician Unavailable Kalen Erickson MD Attending Clinician SOLEDAD Attending Clinician Unavailable MD KALEN ERICKSON Admitting Clinician Unavailable SOLEDAD Admitting Clinician Unavailable Payers Payer Name Policy Type Policy Number Effective Date Expiration Date S ource Problems This patient has no known problems. Allergies, Adverse Reactions, Alerts Allergy Allergy Status Severity Reaction(s) Onset Inactive Treating Comm ents Source Name Type Date Date Clinician No Known DA [facility] Allergie 00:00: s 00 No Known DA Active U [facility] Drug 2-11 Allergie 00:00: s 00 Social History Social Habit Start Date Stop Date Quantity Comments Source Sex Assigned At [birth year] [facility] 00:00:00 00:00:00 Smoking Status Start Date Stop Date Source Tobacco smoking consumption unknown [facility] Medications This patient has no known medications. Vital Signs Vital Name Observation Time Observation Value Comments Source Systolic blood 2022-11-25 14:54:00 136 mm[Hg] [facility] pressure Diastolic blood 2022-11-25 14:54:00 78 mm[Hg] [facility] pressure Heart rate 2022-11-25 14:54:00 84 /min [facility] Body temperature 2022-11-25 14:54:00 36.61 Evy [facility] Respiratory rate 2022-11-25 14:54:00 17 /min [facility] Oxygen saturation in 2022-11-25 14:54:00 98 /min [facility] Arterial blood by Pulse oximetry Body height 2022-11-25 08:50:00 175.3 cm [facility] Body weight 2022-11-25 08:50:00 97.977 kg [facility] BMI 2022-11-25 08:50:00 31.90 kg/m2 [facility] Procedures Procedure Date / Time Performing Clinician Source Performed ECG ED PRELIMINARY 2022-11-25 11:23:18 Tu, [facility] INTERPRETATION URINE CULTURE 2022-11-25 09:37:00 Tu, [facility] COVID-19 QUALITATIVE 2022-11-25 09:12:00 Tu, [facility] RT-PCR CBC WITH PLATELET AND 2022-11-25 09:12:00 Tu, [facility] DIFFERENTIAL COMPREHENSIVE METABOLIC 2022-11-25 09:12:00 Tu, [facility] PANEL THYROID STIMULATING 2022-11-25 09:12:00 Tu, [facility] HORMONE T4, FREE 2022-11-25 09:12:00 Tu, [facility] ALCOHOL LEVEL, BLOOD 2022-11-25 09:12:00 Tu, [facility] ACETAMINOPHEN LEVEL 2022-11-25 09:12:00 Tu, [facility] SALICYLATE LEVEL 2022-11-25 09:12:00 Tu, [facility] URINE DRUGS OF ABUSE 2022-11-25 09:12:00 Tu, [facility] SCREEN URINALYSIS SCREEN AND 2022-11-25 09:12:00 Tu, [facility] MICROSCOPY, WITH REFLEX TO CULTURE ESTIMATED GFR 2022-11-25 09:12:00 Tu, [facility] ECG 12-LEAD 2022-11-25 08:35:34 Kalen Erickson Hospital Encounters Start End Encounter Admission Attending Care Care Encounter Source Date/Time Date/Time Type Type Clinicians Facility Department ID 2021-12-11 Inpatient [facility] [id number] [facility] 15:59:00 21 2021-11-28 Inpatient [facility] [id number] [facility] 18:18:00 50 2021-11-28 Inpatient [facility] [id number] [facility] 18:18:00 50 2022-11-25 2022-11-25 Emergency Topher EricksonChuck 1.2.840.1 [id number] Jazmin 02:49:00 21:05:[id number] 3.430.2.7 Hospit a .3.108306 l .8 2022-11-25 2022-11-25 [id number] [place] 00:00:00 00:00:[address] 2022-11-25 2022-11-25 Travel 1.2.840.1 [id number] [id number] Methodi 00:00:00 00:00:[address] 3.430.2.7 0.2.7.3.698 Ho spita .3.540286 084.8 l .8 2022-04-30 2022-04-30 Outpatient AGUILA AMBRIZ [facility] [address] 01:18:00 01:18:00 HN 0714 da [facility] h Program 2021-12-11 2021-12-11 Emergency [facility] [id number] [facility] 15:59:00 15:59:00 21 Results Test Description Test Time Test Comments Results Result Comments Source ECG 12 lead 2022-11-27 01:20:51 Test Item Value Reference Range Interpretation Comme nts Ventricular rate (test code = 253) 76 Atrial rate (test code = 255) 76 CA interval (test code = 266) 174 QRSD interval (test code = 260) 74 QT interval (test code = 264) 366 QTC interval (test code = 265) 411 P axis 1 (test code = 267) 41 QRS axis 1 (test code = 268) 25 T wave axis (test code = 270) 51 EKG impression (test code = 273) Poor data quality-Normal sinus rhy thm-Normal ECG-No previous ECGs available- [facility] [id number] 18:28:00 Test Item Value Reference Range Interpretation Comments Urine culture Mixed jarod Specimen isolate (test <=10-3 col/cc InformationSp ecimen code = 46298-5) Source: Urin eSpecimen [facility] [Presence] in Respiratory specimen by LENKA with probe [id number] 04:11:08 Test Item Value Reference Range Interpretation Comments SARS-CoV-2 (COVID-19) RNA Not detected [Presence] in Respiratory specimen by LENKA with probe detection (test code = 05202-2) Whether patient is employed in a Unknown healthcare setting (test code = 97630-3) Whether the patient has symptoms Unknown related to condition of interest (test code = 38751-4) Whether the patient was Unknown hospitalized for condition of interest (test code = 12826-2) Whether the patient was admitted Unknown to intensive care unit (ICU) for condition of interest (test code = 25773-2) Whether patient resides in a Unknown congregate care setting (test code = 33614-4) status (test code = Unknown 66668-1) Date and time of symptom onset Unknown (test code = 88029-4) KAMERON HORNE WESTUA, Urinalysis Rflx Cult/[id number] 17:00:00 Test Item Value Reference Range Interpretation Comments Color,Urine (test code = UCOL) Yellow Yellow Clarity,Urine (test code = Clear Clear UCLAR) Ph, Urine (test code = UPH) 7.5 5.0-9.0 N Specific [place],Urine (test 1.015 1.005-1.030 N code = USG) Blood,Urine (test code = UBLD) Negative mg/dL Negative Protein,Urine (test code = Negative mg/dL Negative UPRO) Glucose,Urine (UA) (test code Negative mg/dL Negative = UGLU) Ketones,Urine (test code = Negative mg/dL Negative UKET) Nitrate,Urine (test code = Negative Negative UNIT) Bilirubin,Urine (test code = Negative mg/dL Negative UBIL) Urobilinogen,Urine (test code 1.0 E.U./dL Normal = UURO) Leukocyte Esterase,Urine (test Negative mg/dL Negative code = ULEU) Drug Screen,[id number] 17:00:00 Test Item Value Reference Range Interpretation Comments PCP Phencyclidine Screen,Urine (test Negative Negative code = PCPU) Amphetamine Screen,Urine (test code Negative Negative = AMPU) Methadone Screen,Urine (test code = Negative Negative METHU) Opiate Screen,Urine (test code = Negative Negative UOPIS) Barbituates Screen,Urine (test code Negative Negative = BARBU) Benzodiazepines Screen,Urine (test Negative Negative code = UBENZS) Cocaine Screen,Urine (test code = Negative Negative UCOCS) Cannabinoid Screen,Urine (test code Negative Negative = UTHCS) Propoxyphene Screen, Urine (test Negative Negative code = UPROP) Complete Blood Count Auto [id number] 16:55:00 Test Item Value Reference Range Interpretation Comments White Blood Count (test code = 10.8 x10 3/uL 4.4-10.5 H WBCT) Red Blood Count (test code = 4.79 x10 6/uL 4.10-5.70 N RBC) Hemoglobin (test code = HGBT) 14.9 g/dL 13.4-17.4 N Hematocrit (test code = HCTT) 44.9 % 38.7-52.0 N Mean Corpuscular Volume (test 93.70 fL 80.00-100.00 N code = MCV) Mean Corpuscular Hemoglobin 31.1 pg 27.0-32.5 N (test code = MCH) Mean Corpuscular HGB Conc 33.20 g/dL 32.00-37.50 N (test code = MCHC) RDW Coefficient of Variation 11.9 % 11.5-14.5 N (test code = RDWCV) Platelet Count (test code = 236.0 x10 3/uL 140.0-440.0 N PLTT) Mean Platelet Volume (test 11.4 fL code = MPV) Immature Granulocytes % (Auto) 0.3 % 0.0-5.0 N (test code = IMMGRAN%) Neutrophils % (Auto) (test 64.0 % 36.0-70.0 N code = NE%) Lymphocytes % (Auto) (test 27.8 % 12.0-44.0 N code = LY%) Monocytes % (Auto) (test code 6.3 % 0.0-11.0 N = MO%) Eosinophils % (Auto) (test 1.0 % 0.0-7.0 N code = EO%) Basophils % (Auto) (test code 0.6 % 0.0-2.0 N = BA%) Immature Granulocytes # (Auto) 0.03 x10 3/uL (test code = IMMGRAN#) Neutrophils # (Auto) (test 6.9 x10 3/uL 1.6-7.4 N code = NE#) Lymphocytes # (Auto) (test 3.00 x10 3/uL 0.50-4.60 N code = LY#) Monocytes # (Auto) (test code 0.68 x10 3/uL 0.00-1.20 N = MO#) Eosinophils # (Auto) (test 0.11 x10 3/uL 0.00-0.74 N code = EO#) Basophils # (Auto) (test code 0.06 x10 3/uL 0.00-0.21 N = BA#) nRBC Abs (test code = NRBCA) 0 nRBC Pct (test code = NRBCP) 0 % Comprehensive Metabolic [id number] 16:55:00 Test Item Value Reference Range Interpretation Comments SODIUM (test code = NA) 141.0 mmol/L 136.0-145.0 N Potassium,K (test code = K) 3.8 mmol/L 3.0-5.1 N Chloride (test code = CL) 107 mmol/L 98-107 N Carbon Dioxide (test code = 29 mmol/L 20-31 N CO2) Anion Gap (test code = GAP) 5 mmol/L 5-15 N Blood Urea Nitrogen (test code 12 mg/dL 9-23 N = BUN) Creatinine (test code = CREATT) 0.78 mg/dL 0.55-1.02 N Creatinine Clr Calc Pharmacy 114.39 mL/min (test code = CRCLPHA) Estimated GFR ( Lisa > 60 mL/min/1.73m2 (test code = EGFRAA) Estimated GFR (Non Afr Lisa > 60 mL/min/1.73m2 (test code = EGFRNAA) BUN/Creatinine Ratio (test code 15 ratio 10-20 N = BCRATIO) Glucose (test code = GLU) 90 mg/dL 74-106 N Osmolality,Calculated (test 291.2 code = OSMOC) Calcium (test code = CA) 9.8 mg/dL 8.3-10.6 N Bilirubin,Total (test code = 0.3 mg/dL 0.2-1.1 N BILIT) Aspartate Amino Transferase 33 U/L 0-34 N (test code = AST) Alanine Aminotransferase (test 66 U/L 10-49 H code = ALT) Total Protein (test code = TP) 7.0 g/dL 5.7-8.2 N Albumin Level (test code = ALB) 4.6 g/dL 3.2-4.8 N Globulin (test code = GLOB) 2.4 mg/dL 2.3-3.5 N Albumin/Globulin Ratio (test 1.9 ratio 0.8-2.0 N code = AGRATIO) Alkaline Phosphatase (test code 67 U/L 46-116 N = ALP) Ethanol [id number] 16:55:00 Test Item Value Reference Range Interpretation Comments Ethanol (test code < 3 mg/dL The pharm acological = ETOH) response to blo od alcohol levels mayvary from individual to i ndividual. The fatal umair ntrationhas been reported t o be >400mg/dL. Sars-CoV-2/FLU A/B RSV [id number] 16:55:00 Test Item Value Reference Range Interpretation Comments Sars-CoV-2/FLU A/B For use under Emergency RSV PCR (test code = Use Authorization (EUA) SARSFLURSVPCR) only. Sars-CoV-2/FLU A/B Reference Range: RSV PCR (test code = Negative SARSFLURSVPCR1.1) Influenza A PCR: Negative by Nucleic Acid (test code = Amplification Influenza A PCR:) Influenza B PCR: Negative by Nucleic Acid (test code = Amplification Influenza B PCR:) RSV PCR Result: (test Negative by Nucleic Acid code = RSV PCR Amplification Result:) SARS-CoV-2 PCR Negative by RT-PCR Result: (test code = SARS-CoV-2 PCR Result:) Complete Blood Count Auto [id number] 19:00:00 Test Item Value Reference Range Interpretation Comments White Blood Count (test code = 9.4 x10 3/uL 4.4-10.5 N WBCT) Red Blood Count (test code = 4.45 x10 6/uL 4.10-5.70 N RBC) Hemoglobin (test code = HGBT) 13.9 g/dL 13.4-17.4 N Hematocrit (test code = HCTT) 41.9 % 38.7-52.0 N Mean Corpuscular Volume (test 94.20 fL 80.00-100.00 N code = MCV) Mean Corpuscular Hemoglobin 31.2 pg 27.0-32.5 N (test code = MCH) Mean Corpuscular HGB Conc 33.20 g/dL 32.00-37.50 N (test code = MCHC) RDW Coefficient of Variation 11.9 % 11.5-14.5 N (test code = RDWCV) Platelet Count (test code = 235.0 x10 3/uL 140.0-440.0 N PLTT) Mean Platelet Volume (test 11.3 fL code = MPV) Immature Granulocytes % (Auto) 0.2 % 0.0-5.0 N (test code = IMMGRAN%) Neutrophils % (Auto) (test 57.5 % 36.0-70.0 N code = NE%) Lymphocytes % (Auto) (test 33.7 % 12.0-44.0 N code = LY%) Monocytes % (Auto) (test code 6.9 % 0.0-11.0 N = MO%) Eosinophils % (Auto) (test 1.1 % 0.0-7.0 N code = EO%) Basophils % (Auto) (test code 0.6 % 0.0-2.0 N = BA%) Immature Granulocytes # (Auto) 0.02 x10 3/uL (test code = IMMGRAN#) Neutrophils # (Auto) (test 5.4 x10 3/uL 1.6-7.4 N code = NE#) Lymphocytes # (Auto) (test 3.15 x10 3/uL 0.50-4.60 N code = LY#) Monocytes # (Auto) (test code 0.65 x10 3/uL 0.00-1.20 N = MO#) Eosinophils # (Auto) (test 0.10 x10 3/uL 0.00-0.74 N code = EO#) Basophils # (Auto) (test code 0.06 x10 3/uL 0.00-0.21 N = BA#) nRBC Abs (test code = NRBCA) 0 nRBC Pct (test code = NRBCP) 0 % Drug Screen,[id number] 19:00:00 Test Item Value Reference Range Interpretation Comments PCP Phencyclidine Screen,Urine (test Negative Negative code = PCPU) Amphetamine Screen,Urine (test code Negative Negative = AMPU) Methadone Screen,Urine (test code = Negative Negative METHU) Opiate Screen,Urine (test code = Negative Negative UOPIS) Barbituates Screen,Urine (test code Negative Negative = BARBU) Benzodiazepines Screen,Urine (test Negative Negative code = UBENZS) Cocaine Screen,Urine (test code = Negative Negative UCOCS) Cannabinoid Screen,Urine (test code Negative Negative = UTHCS) Propoxyphene Screen, Urine (test Negative Negative code = UPROP) UA, Urinalysis [id number] 19:00:00 Test Item Value Reference Range Interpretation Comments Color,Urine (test code = Yellow Yellow UCOL) Clarity,Urine (test code = Clear Clear UCLAR) PH,Urine (test code = 6.5 5.5-8.5 UPH.XX) Specific [place],Urine 1.015 1.005-1.030 N (test code = USG) Blood,Urine (test code = Negative cells/uL Negative UBLD) Protein,Urine (test code = Negative mg/dL Negative UPRO) Glucose,Urine (UA) (test Negative mg/dL Negative code = UGLU) Ketones,Urine (test code = Negative mg/dL Negative UKET) Nitrate,Urine (test code = Negative Negative UNIT) Bilirubin,Urine (test code Negative mg/dL Negative = UBIL) Urobilinogen,Urine (test 0.2 mg/dL Negative code = UURO) Leukocyte Esterase,Urine Negative cells/uL Negative (test code = ULEU) Sars-CoV-2/FLU A/B RSV [id number] 19:00:00 Test Item Value Reference Range Interpretation Comments Sars-CoV-2/FLU A/B For use under Emergency RSV PCR (test code = Use Authorization (EUA) SARSFLURSVPCR) only. Sars-CoV-2/FLU A/B Reference Range: RSV PCR (test code = Negative SARSFLURSVPCR1.1) Influenza A PCR: Negative by Nucleic Acid (test code = Amplification Influenza A PCR:) Influenza B PCR: Negative by Nucleic Acid (test code = Amplification Influenza B PCR:) RSV PCR Result: (test Negative by Nucleic Acid code = RSV PCR Amplification Result:) SARS-CoV-2 PCR Negative by RT-PCR Result: (test code = SARS-CoV-2 PCR Result:) Comprehensive Metabolic [id number] 19:00:00 Test Item Value Reference Range Interpretation Comments SODIUM (test code = NA) 142.0 mmol/L 136.0-145.0 N Potassium,K (test code = K) 3.6 mmol/L 3.0-5.1 N Chloride (test code = CL) 106 mmol/L 98-107 N Carbon Dioxide (test code = CO2) 29 mmol/L 20-31 N Anion Gap (test code = GAP) 7 mmol/L 5-15 N Blood Urea Nitrogen (test code = 8 mg/dL 9-23 L BUN) Creatinine (test code = CREATT) 0.95 mg/dL 0.55-1.02 N Creatinine Clr Calc Pharmacy 88.00 mL/min (test code = CRCLPHA) Estimated GFR ( Lisa > 60 mL/min/1.73m2 (test code = EGFRAA) Estimated GFR (Non Afr Lisa > 60 mL/min/1.73m2 (test code = EGFRNAA) BUN/Creatinine Ratio (test code 8 ratio 10-20 L = BCRATIO) Glucose (test code = GLU) 102 mg/dL 74-106 N Calcium (test code = CA) 10.2 mg/dL 8.3-10.6 N Bilirubin,Total (test code = 0.6 mg/dL 0.2-1.1 N BILIT) Aspartate Amino Transferase 44 U/L 0-34 H (test code = AST) Alanine Aminotransferase (test 66 U/L 10-49 H code = ALT) Total Protein (test code = TP) 7.4 g/dL 5.7-8.2 N Albumin Level (test code = ALB) 4.8 g/dL 3.2-4.8 N Globulin (test code = GLOB) 2.6 mg/dL 2.3-3.5 N Albumin/Globulin Ratio (test 1.8 ratio 0.8-2.0 N code = AGRATIO) Alkaline Phosphatase (test code 68 U/L 46-116 N = ALP) Osmolality,Calculated (test code 291.8 = OSMOC) Ethanol [id number] 19:00:00 Test Item Value Reference Range Interpretation Comments Ethanol (test code < 3 mg/dL The pharm acological = ETOH) response to blo od alcohol levels mayvary from individual to i ndividual. The fatal umair ntrationhas been reported t o be >400mg/dL.
[2023-01-06] MEDS ORDERED: MORPHINE 4 MG/ML SYR ONE (21:24)
[2023-01-06] MEDS ORDERED: ONDANSETRON 4 MG/2 ML VIAL ONE (21:24)
[2023-01-06] MEDS ORDERED: NA CHLORIDE 0.9% 1,000 ML ONE (21:24)
--- NOTE | 2023-01-06 21:47 | RAD REPORT ---
EXAM DESCRIPTION: CT - Stone Protocol - 01/06/2023 9:22 pm CLINICAL HISTORY: right flank and right low abdomen pain COMPARISON: Stone Protocol dated 04/20/2022; Abdomen Pelvis W Contrast dated 02/26/2022; Stone Protoc ol dated 12/23/2021; Abdomen Pelvis W Contrast dated 12/20/2021 TECHNIQUE: Thin cut axial CT imaging of the abdomen and pelvis was performed without IV contrast. Mu ltiplanar reformats were generated and reviewed. All CT scans are performed using dose optimization technique as appropriate and may include automated exposure control or mA/KV adjustment according to patient size. FINDINGS: No suspicious findings in the lung bases. The liver, spleen, and pancreas show no suspicious findings. Status post cholecystectomy. No evidence of intra or extrahepatic biliary ductal dilation. Symmetric renal contour, without suspicious parenchymal findings within limits of noncontrast techniq ue. No evidence of hydroureteronephrosis. Bilateral nonobstructing renal calculi, the largest at the lower pole on the right measuring 5 millimeter and on the left at the lower pole measuring 4 millimet er. No dilated bowel loops or bowel wall thickening. No free air, free fluid or inflammatory stranding. N o hernia, mass or bulky lymphadenopathy. Urinary bladder is suboptimally distended, limiting evaluati on, with small calculi layering posteriorly, 2-3 millimeter. No suspicious bony findings. IMPRESSION: No acute intra-abdominal process. Nonobstructing renal calculi, up to 5 millimeter. Tiny bladder calculi as well.
[2023-01-06 21:48] LABS: Specific Gravity 1.024 (1.005-1.030); Urine Bacteria <20 /HPF (<20); Urine Bilirubin NEGATIVE (Negative); Urine Blood 1+ (Negative); Urine Clarity Extremely Turbid (Clear); Urine Color Yellow (Yellow); Urine Glucose NEGATIVE (Negative); Urine Mucus 1+ /HPF (None Seen); Urine Protein 1+ (Negative); Urine RBC 21-50 /HPF (None Seen); Urine Urobilinogen 1+ (Normal)
[2023-01-06 22:07] LABS: Absolute Lymphocytes (CBC) 2.6 K/uL (0.7-4.9); Hematocrit 41.9 % (39.6-49.0); MCV 91.6 fL (80-100); MPV 8.9 fL (7.6-11.3); RBC Red Blood Cell Count 4.57 M/uL (4.33-5.43)
[2023-01-06 22:19] LABS: Albumin 3.8 g/dL (3.4-5.0); Bilirubin Total 0.3 mg/dL (0.2-1.0); Potassium 3.6 mEq/L (3.5-5.1); Protein, Total 7.4 g/dL (6.4-8.2)
--- NOTE | 2023-01-07 08:32 | ER ---
Nurse's Notes [facility] Name: Chi Kelley Age: 52 yrs Sex: Male : 1970 Arrival Date: 01/06/2023 Time: 20:33 Bed 19 Private MD: Diagnosis: Kidney Stone/ Calculus in bladder Presentation: 01/06 20:54 Chief complaint: Patient states: right groin pain radiating to back X1 day. burning lg3 sensation in stomach. Coronavirus screen: Client denies travel out of the [place] in the last 14 days. At this time, the client does not indicate any symptoms associated with coronavirus-19. Ebola Screen: No symptoms or risks identified at this time. Initial Sepsis Screen: Does the patient meet any 2 criteria? No. Patient's initial sepsis screen is negative. Does the patient have a suspected source of infection? No. Patient's initial sepsis screen is negative. Risk Assessment: Do you want to hurt yourself or someone else? Patient reports no desire to harm self or others. Onset of symptoms was January 05, 2023. 20:54 Method Of Arrival: Wheelchair lg3 20:54 Acuity: DORIAN 3 lg3 Triage Assessment: 20:56 General: Appears in no apparent distress. comfortable, Behavior is calm, cooperative. lg3 Pain: Complains of pain in right lower quadrant Pain radiates to right flank. EENT: No deficits noted. No signs and/or symptoms were reported regarding the EENT system. Neuro: No deficits noted. Good Agitation-Sedation Scale (RASS): 0 - Alert and Calm Level of Consciousness is awake, alert, obeys commands, Oriented to person, place, time, situation. Cardiovascular: No deficits noted. Denies chest pain, shortness of breath, Capillary refill < 3 seconds Clubbing of nail beds is absent Patient's skin is warm and dry. Respiratory: No deficits noted. Airway is patent Respiratory effort is even, unlabored, Respiratory pattern is regular, symmetrical. GI: No deficits noted. Abdomen is round non-distended, Reports lower abdominal pain, cramping. : No deficits noted. No signs and/or symptoms were reported regarding the genitourinary system. Derm: No deficits noted. No signs and/or symptoms reported regarding the dermatologic system. Skin is intact, is healthy with good turgor, Skin is dry, Skin is normal, Skin temperature is warm. Musculoskeletal: No deficits noted. No signs and/or symptoms reported regarding the musculoskeletal system. Circulation, motion, and sensation intact. Range of motion: intact in all extremities. Historical: - Allergies: 20:56 No Known Allergies; lg3 - Home Meds: 20:56 Flexeril 10 mg Oral tab 1 tab daily [Active]; trazodone 50 mg Oral tab 1 tab nightly lg3 [Active]; Zoloft Oral [Active]; - PMHx: 20:56 Anxiety; chronic back pain; Chronic obstructive lung disease; COPD; Glaucoma; lg3 Hypothyroidism; Pre-Diabetes; - PSHx: 20:56 Cholecystectomy; lg3 - Immunization history:: Adult Immunizations up to date, Client reports receiving the Rio \T\ Rio single-dose vaccine. - Social history:: Smoking status: Patient reports the use of cigarette tobacco products, smokes one-half pack cigarettes per day, Patient/guardian denies using alcohol, street drugs. Screenin:52 [facility] ED Fall Risk Assessment (Adult) History of falling in the last 3 months, mb9 including since admission No falls in past 3 months (0 pts) Confusion or Disorientation No (0 pts) Intoxicated or Sedated No (0 pts) Impaired Gait No (0 pts) Mobility Assist Device Used No (0 pt) Altered Elimination No (0 pt) Score/Fall Risk Level 0 - 2 = Low Risk Oriented to surroundings, Maintained a safe environment, Educated pt \T\ family on fall prevention, incl call for assistance when getting out of bed. Abuse screen: Denies threats or abuse. Nutritional screening: No deficits noted. Tuberculosis screening: No symptoms or risk factors identified. Assessment: 23:05 Reassessment: No changes from previously documented assessment. Patient and/or family mb9 updated on plan of care and expected duration. Pain level reassessed. Patient is alert, oriented x 3, equal unlabored respirations, skin warm/dry/pink. Patient states symptoms have improved. Vital Signs: 20:54 BP 120 / 90; Pulse 85; Resp 18 S; Temp 97.8(TE); Pulse Ox 98% on R/A; Weight 95.25 kg lg3 (R); Height 5 ft. 9 in. (R); Pain 10/10; 21:55 BP 121 / 79; Pulse 75; Resp 18; Pulse Ox 100% ; mb9 23:05 BP 119 / 78; Pulse 71; Resp 20; Pulse Ox 97% on R/A; mb9 20:54 Body Mass Index 31.01 (95.25 kg, 175.26 cm) lg3 20:54 Pain Scale: Adult lg3 ED Course: 20:33 Patient arrived in ED. es 20:38 Yassine Jauregui MD is Attending Physician. rn 20:41 Ian Ibrahim PA is PHCP. cp 20:41 Yassine Jauregui MD is Attending Physician. cp 20:51 Colleen Rudolph, MELINA is Primary Nurse. mb9 20:52 Arm band placed on. mb9 20:52 Placed in gown. Bed in low position. Call light in reach. Side rails up X 1. Client mb9 placed on continuous cardiac and pulse oximetry monitoring. NIBP monitoring applied. 20:55 Triage completed. lg3 21:20 Inserted saline lock: 20 gauge in right antecubital area, using aseptic technique. mb9 21:22 Urinalysis w/ reflexes Sent. mb9 21:23 CT Stone Protocol In Process Unspecified. EDMS 21:55 CBC with Diff Sent. mb9 21:55 CMP Sent. mb9 21:55 Lipase Sent. mb9 23:05 No provider procedures requiring assistance completed. mb9 23:37 Victorino Robles MD is Referral Physician. cp 23:52 IV discontinued, intact, bleeding controlled, No redness/swelling at site. Pressure mb9 dressing applied. Administered Medications: 21:30 Drug: Ondansetron IVP 4 mg Route: IVP; Site: right antecubital; mb9 23:33 Follow up: Response: No adverse reaction mb9 21:30 Drug: NS 0.9% IV 1000 ml Route: IV; Rate: 1 bolus; Site: right antecubital; mb9 21:33 Drug: morphine IVP or IV 4 mg Route: IVP; Infused Over: 4 mins; Site: right antecubital;mb9 23:33 Follow up: Response: No adverse reaction mb9 Medication: 20:52 VIS not applicable for this client. mb9 Outcome: 23:38 Discharge ordered by . cp 23:51 Discharged to home via wheelchair. mb9 23:51 Condition: stable 23:51 Discharge instructions given to patient, Instructed on discharge instructions, follow up and referral plans. Demonstrated understanding of instructions, follow-up care, medications, Prescriptions given X 1. 23:52 Patient left the ED. mb9 Signatures: Dispatcher [employer] Tanna Etienne Roman, MD MD rn Page, Corey, PA PA cp Gibson, Lacie, RN RN lg3 Colleen Rudolph RN RN mb9
--- NOTE | 2023-01-07 08:33 | EDPHYS ---
Physician Documentation [facility] Name: Chi Kelley Age: 52 yrs Sex: Male : 1970 Arrival Date: 01/06/2023 Time: 20:33 Bed 19 Private MD: ED Physician Yassine Jauregui HPI: 01/06 21:00 This 52 yrs old Male presents to ER via Wheelchair with complaints of Abdominal Pain, cp Back Pain. 21:00 The patient presents with abdominal pain right lower abdomen and right flank. Onset: cp The symptoms/episode began/occurred yesterday. 21:00 The symptoms radiate to right back, right groin. Associated signs and symptoms: cp Pertinent negatives: constipation, diarrhea, fever, headache, hematuria, vomiting. The symptoms are described as constant. Severity of pain: in the emergency department the pain is unchanged despite home interventions. Historical: - Allergies: 20:56 No Known Allergies; lg3 - Home Meds: 20:56 Flexeril 10 mg Oral tab 1 tab daily [Active]; trazodone 50 mg Oral tab 1 tab nightly lg3 [Active]; Zoloft Oral [Active]; - PMHx: 20:56 Anxiety; chronic back pain; Chronic obstructive lung disease; COPD; Glaucoma; lg3 Hypothyroidism; Pre-Diabetes; - PSHx: 20:56 Cholecystectomy; lg3 - Immunization history:: Adult Immunizations up to date, Client reports receiving the Rio \T\ Rio single-dose vaccine. - Social history:: Smoking status: Patient reports the use of cigarette tobacco products, smokes one-half pack cigarettes per day, Patient/guardian denies using alcohol, street drugs. ROS: 21:05 Constitutional: Negative for body aches, chills, fever, poor PO intake. cp 21:05 Eyes: Negative for injury, pain, redness, and discharge. cp 21:05 ENT: Negative for drainage from ear(s), ear pain, sore throat, difficulty swallowing, difficulty handling secretions. 21:05 Cardiovascular: Negative for chest pain, edema, palpitations. 21:05 Respiratory: Negative for cough, shortness of breath, wheezing. 21:05 Abdomen/GI: Positive for abdominal pain, of the right flank and right lower abdomen, Negative for vomiting, diarrhea, constipation, anorexia. 21:05 Back: Positive for pain at rest, pain with movement. 21:05 : Negative for urinary symptoms, testicular pain 21:05 Neuro: Negative for altered mental status, dizziness, headache, numbness, weakness. 21:05 All other systems are negative. Exam: 21:10 Constitutional: The patient appears in no acute distress, alert, awake, non-toxic, well cp developed, well nourished. 21:10 Head/Face: Normocephalic, atraumatic. cp 21:10 Eyes: Periorbital structures: appear normal, Conjunctiva: normal, no exudate, no cp injection, Sclera: no appreciated abnormality, Lids and lashes: appear normal, bilaterally. 21:10 ENT: External ear(s): are unremarkable, Nose: is normal, Mouth: Lips: moist, Oral mucosa: pink and intact, moist, Posterior pharynx: Airway: no evidence of obstruction, patent. 21:10 Chest/axilla: Inspection: normal. 21:10 Cardiovascular: Rate: normal, Rhythm: regular, Edema: is not appreciated. 21:10 Respiratory: the patient does not display signs of respiratory distress, Respirations: cp normal, no use of accessory muscles, no retractions, labored breathing, is not present, Breath sounds: are clear throughout, no decreased breath sounds, no stridor, no wheezing. 21:10 Abdomen/GI: Inspection: abdomen appears normal, Bowel sounds: active, all quadrants, Palpation: soft, in all quadrants, moderate abdominal tenderness, in the anterior aspect of right lateral abdomen, posterior aspect of right lateral abdomen and right lower quadrant, rebound tenderness, is not appreciated, involuntary guarding, is not appreciated. 21:10 Back: CVA tenderness, is absent. 21:10 Skin: cellulitis, is not appreciated, no rash present. 21:10 Neuro: Orientation: to person, place \T\ time. Mentation: is normal. Vital Signs: 20:54 BP 120 / 90; Pulse 85; Resp 18 S; Temp 97.8(TE); Pulse Ox 98% on R/A; Weight 95.25 kg lg3 (R); Height 5 ft. 9 in. (R); Pain 10/10; 21:55 BP 121 / 79; Pulse 75; Resp 18; Pulse Ox 100% ; mb9 23:05 BP 119 / 78; Pulse 71; Resp 20; Pulse Ox 97% on R/A; mb9 20:54 Body Mass Index 31.01 (95.25 kg, 175.26 cm) lg3 20:54 Pain Scale: Adult lg3 MDM: 20:38 Patient medically screened. rn 21:00 Differential diagnosis: appendicitis, cholecystitis, Cholelithiasis, Pyelonephritis, cp Testicular Torsion, Ureterolithiasis, urinary tract infection, colitis. 23:38 Data reviewed: vital signs, nurses notes, lab test result(s), radiologic studies, CT cp scan. 23:38 Consideration of Admission/Observation Escalation of care including cp admission/observation considered. I considered the following discharge prescriptions or medication management in the emergency department Medications were administered in the Emergency Department. See MAR. Care significantly affected by the following chronic conditions: Chronic Obstructive Pulmonary Disease, chronic back pain. Counseling: I had a detailed discussion with the patient and/or guardian regarding: the historical points, exam findings, and any diagnostic results supporting the discharge/admit diagnosis, lab results, radiology results, to return to the emergency department if symptoms worsen or persist or if there are any questions or concerns that arise at home. Response to treatment: the patient's symptoms have markedly improved after treatment, and as a result, I will discharge patient. 01/06 20:57 Order name: CBC with Diff cp 01/06 20:57 Order name: CMP cp 01/06 20:57 Order name: Lipase cp 01/06 20:57 Order name: Urinalysis w/ reflexes cp 01/06 21:04 Order name: CT Stone Protocol cp 01/06 20:57 Order name: IV Saline Lock; Complete Time: 21:55 cp 01/06 20:57 Order name: Labs collected and sent; Complete Time: 21:55 cp 01/06 23:37 Order name: Urine Strainer; Complete Time: 23:39 cp Administered Medications: 21:30 Drug: Ondansetron IVP 4 mg Route: IVP; Site: right antecubital; mb9 23:33 Follow up: Response: No adverse reaction mb9 21:30 Drug: NS 0.9% IV 1000 ml Route: IV; Rate: 1 bolus; Site: right antecubital; mb9 21:33 Drug: morphine IVP or IV 4 mg Route: IVP; Infused Over: 4 mins; Site: right antecubital;mb9 23:33 Follow up: Response: No adverse reaction mb9 Disposition: 01/07 00:45 Co-signature as Attending Physician, Yassine Jauregui MD I reviewed the patient's care rn provided by the Advanced Practice Provider and agree with the diagnosis and treatment plan. Disposition Summary: 01/06/23 23:38 Discharge Ordered Location: Home cp Problem: new cp Symptoms: have improved cp Condition: Stable cp Diagnosis - Kidney Stone/ Calculus in bladder cp Followup: cp - With: Victorino Robles MD - When: 2 - 3 days - Reason: pain continues Discharge Instructions: - Discharge Summary Sheet cp - Kidney Stones cp - Dietary Guidelines to Help Prevent Kidney Stones cp Forms: - Medication Reconciliation Form cp - Thank You Letter cp - Antibiotic Education cp - Prescription Opioid Use cp Prescriptions: - Ibuprofen 800 mg Oral Tablet - take 1 tablet by ORAL route every 8 hours As needed take with food; 30 tablet; cp Refills: 0, Product Selection Permitted Signatures: Dispatcher [employer] EDYassine Darden MD MD rn Page, Corey, PA PA cp Gertrudis Bermudez RN RN lg3 Colleen Rudolph RN RN mb9 Corrections: (The following items were deleted from the chart) 01/06 22:50 21:05 This 52 yrs old Male presents to ER via Wheelchair with complaints of Abdominal cp Pain, Back Pain. cp
[2023-01-07 10:34] VITALS: TEMP 97.8
[2023-01-07 10:36] VITALS: BP 119/78; O2SAT 97
== END 2023-01-06 23:52 | disposition home or self-care (01) ==
LOC: ER 20:30
DX: N20.0 Calculus of kidney (principal); N21.0 Calculus in bladder; J44.9 Chronic obstructive pulmonary disease, unspecified; F41.9 Anxiety disorder, unspecified; F17.210 Nicotine dependence, cigarettes, uncomplicated
CPT/HCPCS: 85025; 81001; 36415; 83690; 80053; 76377; 74176; J2405; J7030

== ENCOUNTER 2023-03-02 17:19 | Emergency (ER) | payer OTHER ==
--- OUTSIDE RECORDS SUMMARY | 2023-03-02 17:23 | XMS REPORT | Continuity of Care Document ---
:1970 Author Organization [facility] t Address [address] [place] [address] Care Team Providers Name Role Phone Asked, [...] Date Clinician No Known DA Active U 0 [facility] Drug 2-24 Allergie 00:00: s 00 No Known DA Active U 0 [facility] Drug 2-11 Allergie 00:00: s 00 Social History Social Habit Start Date Stop Date Quantity Comments Source Gender identity [facility] Sexual orientation Method [facility] History of Social 2022-11-25 2022-11-25 [facility] function 00:00:00 00:00:00 Sex Ass[birth year] [facility] 00:00:00 00:00:00 Smoking Status Start Date Stop Date Source Tobacco smoking consumption unknown [facility] Medications This patient has no known medications. Vital Signs Vital Name Observation Time Observation Value Comments Source Systolic blood 2022-11-25 14:54:00 136 mm[Hg] Method [facility] pressure Diastolic blood 2022-11-25 14:54:00 78 mm[Hg] [facility] pressure Heart rate 2022-11-25 14:54:00 84 /min [facility] Body temperature 2022-11-25 14:54:00 36.61 Evy [facility] Respiratory rate 2022-11-25 14:54:00 17 /min [facility] Oxygen saturation in 2022-11-25 14:54:00 98 /min [facility] Arterial blood by Pulse oximetry Body height 2022-11-25 08:50:00 175.3 cm [facility] Body weight 2022-11-25 08:50:00 97.977 kg [facility] BMI 2022-11-25 08:50:00 31.90 kg/m2 [facility] Procedures Procedure Date / Time Performing Clinician Source Performed ECG ED PRELIMINARY 2022-11-25 11:23:18 Tu, [facility] INTERPRETATION URINE CULTURE 2022-11-25 09:37:00 Tu, [facility] COVID-19 QUALITATIVE 2022-11-25 09:12:00 Tu, [facility] RT-PCR CBC WITH PLATELET AND 2022-11-25 09:12:00 Tu, [facility] DIFFERENTIAL COMPREHENSIVE METABOLIC 2022-11-25 09:12:00 Tu, [facility] PANEL THYROID STIMULATING 2022-11-25 09:12:00 Tu, [facility] HORMONE T4, FREE 2022-11-25 09:12:00 Tu, [facility] ALCOHOL LEVEL, BLOOD 2022-11-25 09:12:00 Tu, [facility] ACETAMINOPHEN LEVEL 2022-11-25 09:12:00 Tu, [facility] SALICYLATE LEVEL 2022-11-25 09:12:00 Tu, [facility] URINE DRUGS OF ABUSE 2022-11-25 09:12:00 Tu, [facility] SCREEN URINALYSIS SCREEN AND 2022-11-25 09:12:00 Tu, [facility] MICROSCOPY, WITH REFLEX TO CULTURE ESTIMATED GFR 2022-11-25 09:12:00 Tu, [facility] ECG 12-LEAD 2022-11-25 08:35:34 Tu, [facility] Encounters Start End Encounter Admission Attending Care Care Encounter Source Date/Time Date/Time Type Type Clinicians Facility Department ID 2021-12-11 Inpatient [facility] [id number] [facility] 15:59:00 21 2021-11-28 Inpatient [facility] [id number] [facility] 18:18:00 50 2021-11-28 Inpatient [facility] [id number] [facility] 18:18:00 50 2022-11-25 2022-11-25 Emergency Tu, Kalen 1.2.840.1 [id number] Methodi 02:49:00 21:05:[address] 3.430.2.7 Hospit a .3.453580 l .8 2022-11-25 2022-11-25 Emergency Tu, Kalen 1.2.840.1 [id number] [facility] 02:49:00 21:05:[id number] 3.430.2.7 Hospit a .3.302009 l .8 2022-11-25 2022-11-25 Travel 1.2.840.1 1.2.442.685 [id number] Methodi 00:00:00 00:00:[address] 3.430.2.7 0.2.7.3.698 Ho spita .3.974618 084.8 l .8 2022-11-25 2022-11-25 Travel 1.2.840.1 1.2.092.054 [id number] Methodi 00:00:00 00:00:[address] 3.430.2.7 0.2.7.3.698 Ho spita .3.033515 084.8 l .8 2022-04-30 2022-04-30 Outpatient AGUILA AMBRIZ [facility] [address] 01:18:00 01:18:00 HN 0714 da [facility] Outre [facility] 2021-12-11 2021-12-11 Emergency [facility] [id number] [facility] 15:59:00 15:59:00 21 Results Test Description Test Time Test Comments Results Result Comments Source ECG 12 lead 2022-11-27 01:20:51 Test Item Value Reference Range Interpretation Comme nts Ventricular rate (test code = 253) 76 Atrial rate (test code = 255) 76 DE interval (test code = 266) 174 QRSD [...] sinus rhy thm-Normal ECG-No previous ECGs available- [facility] [id number] 01:20:51 Test Item Value Reference Range Interpretation Comments Ventricular rate (test 76 code = 253) Atrial rate (test code = 76 255) DE interval (test code = 174 266) QRSD interval (test code 74 = 260) QT interval (test code = 366 264) QTC interval (test code 411 = 265) P axis 1 (test code = 41 267) QRS axis 1 (test code = 25 268) T wave axis (test code = 51 270) EKG impression (test Poor data code = 273) quality-Normal sinus rhythm-Normal ECG-No previous ECGs available-Electronica lly Signed By Neva Anne MD ([id number]) on 11/26/2022 7:20:49 PM [facility] [id number] 18:28:00 Test Item Value Reference Range Interpretation Comments Urine culture Mixed jarod Specimen isolate (test <=10-3 col/cc InformationSp ecimen code = 48897-5) Source: Urin eSpecimen Site: [facility] [id number] 18:28:00 Test Item Value Reference Range Interpretation Comments Urine culture Mixed jarod Specimen isolate (test <=10-3 col/cc InformationSp ecimen code = 03642-2) Source: [facility]rin [facility]Specimen [facility] RNA [Presence] in Respiratory specimen by LENKA with probe [id number] 04:11:08 Test Item Value Reference Range Interpretation Comments SARS-CoV-2 (COVID-19) RNA Not detected [Presence] in Respiratory specimen by LENKA with probe detection (test code = 35930-8) Whether patient is employed in a Unknown healthcare setting (test code = 18429-8) Whether the patient has symptoms Unknown related to condition of interest (test code = 45122-3) Whether the patient was Unknown hospitalized for condition of interest (test code = 82831-1) Whether the patient was admitted Unknown to intensive care unit (ICU) for condition of interest (test code = 16688-6) Whether patient resides in a Unknown congregate care setting (test code = 22536-8) status (test code = Unknown 94336-3) Date and time of symptom onset Unknown (test code = 09284-1) KAMERON TERRAZAS, Urinalysis Rflx Cult/[id number] 17:00:00 Test Item Value Reference Range Interpretation Comments Color,Urine (test code = UCOL) Yellow Yellow Clarity,Urine (test code = Clear Clear UCLAR) Ph, Urine (test code = UPH) 7.5 5.0-9.0 N Specific [place],Urine (test 1.015 1.005-1.030 N code = USG) [...] Negative mg/dL Negative code = ULEU) Drug Screen,[id number] 17:00:00 Test Item Value Reference Range Interpretation [...] code = UPROP) Complete Blood Count Auto [id number] 16:55:00 Test Item Value Reference Range Interpretation [...] code = NRBCP) 0 % Comprehensive Metabolic [id number] 16:55:00 Test Item Value Reference Range Interpretation [...] 67 U/L 46-116 N = ALP) Ethanol [id number] 16:55:00 Test Item Value Reference Range Interpretation Comments Ethanol (test code < 3 mg/dL The pharm acological = ETOH) response to blo od alcohol levels mayvary from individual to i ndividual. The fatal umair ntrationhas been reported t o be >400mg/dL. Sars-CoV-2/FLU A/B RSV [id number] 16:55:00 Test Item Value Reference Range Interpretation [...] SARS-CoV-2 PCR Result:) Complete Blood Count Auto [id number] 19:00:00 Test Item Value Reference Range Interpretation [...] (test code = NRBCP) 0 % Drug Screen,[id number] 19:00:00 Test Item Value Reference Range Interpretation [...] Negative Negative code = UPROP) UA, Urinalysis [id number] 19:00:00 Test Item Value Reference Range Interpretation Comments Color,Urine (test code = Yellow Yellow UCOL) Clarity,Urine (test code = Clear Clear UCLAR) PH,Urine (test code = 6.5 5.5-8.5 UPH.XX) Specific [place],Urine 1.015 1.005-1.030 N (test code = USG) [...] (test code = ULEU) Sars-CoV-2/FLU A/B RSV [id number] 19:00:00 Test Item Value Reference Range Interpretation [...] code = SARS-CoV-2 PCR Result:) Comprehensive Metabolic [id number] 19:00:00 Test Item Value Reference Range Interpretation [...] Osmolality,Calculated (test code 291.8 = OSMOC) Ethanol [id number] 19:00:00 Test Item Value Reference Range Interpretation Comments Ethanol (test code < 3 mg/dL The pharm acological = ETOH) response to blo od alcohol levels mayvary from individual to i ndividual. The fatal umair ntrationhas been reported t o be >400mg/dL. Notes Date/Time Note Provider Source 2021-12-11 16:54:00-00:00 [facility] [address] [place] [address] Emergency Department Document Signed Patient: Chi Kelley Medical Record#: [id number] 0 : 1970 Acct:[id number] Age/Sex: 51 / M Admit/Reg Date: 12/11/21 Loc: [facility] Room: Report Number: [id number]: Honorio Castañeda DO <Christiana Davis - Last Filed: 12/11/21 18:08> Psych HPI - General Chief Complaint: Psychiatric Symptoms Stated Complaint: Hearing Voices Nursing note reviewed: Yes Source: patient Mode of arrival: ambulatory Limitations: no limitations Primary Care Provider: Pcp-None,Md - History of Present Illness HPI Narrative: 51-year-old male history of anxiety, depression, GERD presents the ED complaining of auditory visual hallucinations, patient stat es he feels like someone is trying to kill him. Patient states he hears voices, states he feels like his landlord others are trying to kill him he feels paranoid, patient also reports seeing angels t rying to get him. Patient states was discharged from hospital yesterday, but has been unab le to afford the medications he was prescribed until the 1st of the month. Patient denies SI HI. Patient denies chest pain, shortness of breath, dizziness, headache, weakness, numbness, nausea/v omiting, abdominal pain, cough/congestion, fever syncope. Patient is alert oriented x3, answering questions appropriately, appears in no distress at this time, ambulates with an even steady gait. GCS 15 Vital signs stable - Related Data Previous Rx's Medication Instructions Recorded olanzapine 10 mg tablet 10 mg PO QHS tab 2 sertraline 50 mg tablet 50 mg PO DAILY tab 12/10 trazodone 100 mg tablet 100 mg PO QHS PRN tab Allergies Allergy/AdvReac Type Severity Reaction Status Da te / Time No Known Drug Allergies Allergy Verified 2 16:32 Review of Systems ROS: As reviewed in the HPI. All other systems review ed are negative or normal. Family/Social History - Social History Smoking Status: Current some day smoker Smoked/Used Tobacco in the Last 30 Days?: No Current or Hx of Recreational Drug use: No Physical Exam Physical Exam: CONSTITUTIONAL: Well appearing in no acute distr ess SKIN: Warm, dry, and intact EYES: Extraocular movements are grossly intact, clear conjunctiva HENT: Normocephalic, atraumatic, moist mucus mem branes NECK: No obvious swelling, normal range of motio n PULMONARY: Normal chest rise and fall, no respir atory distress or stridor CARDIOVASCULAR: Regular rate, distal extremities are warm and well perfused GASTROINTESTINAL: Nondistended, non-tender GENITOURINARY: No CVA tenderness noted NEUROLOGIC: Normal speech, moves all extremities MUSCULOSKELETAL: No gross deformities, atraumati c PSYCHIATRIC: Depressed, reports AH/VH, denies SI HI Results/Orders - Results and Orders Result diagrams: 12/11/21 16:55 12/11/21 16:55 MDM/COURSE - MDM Medical Decision Making Narrative: DDX: Depression, anxiety, sc hizophrenia, bipolar, substance abuse, intoxication Abnormal Lab Results 12/11/21 12/11/21 16:55 16:55 WBC 10.8 H RBC 4.79 Hgb 14.9 Hct 44.9 MCV 93.70 MCH 31.1 MCHC 33.20 RDW Coeff of Claribel 11.9 Plt Count 236.0 MPV 11.4 Immature Gran % (Auto) 0.3 Neut % (Auto) 64.0 Lymph % (Auto) 27.8 Dickey % (Auto) 6.3 Eos % (Auto) 1.0 Baso % (Auto) 0.6 Neut # (Auto) 6.9 Lymph # (Auto) 3.00 Dickey # (Auto) 0.68 Eos # (Auto) 0.11 Baso # (Auto) 0.06 Immature Gran # (Auto) 0.03 Absolute Nucleated RBC 0 Nucleated RBC % (auto) 0 Sodium 141.0 Potassium 3.8 Chloride 107 Carbon Dioxide 29 Anion Gap 5 BUN 12 Creatinine 0.78 Estimated Creat Clear 114.39 Est GFR ( Amer) > 60 Est GFR (Non-Af Amer) > 60 BUN/Creatinine Ratio 15 Glucose 90 Calculated Osmolality 291.2 Calcium 9.8 Total Bilirubin 0.3 AST 33 ALT 66 H Alkaline Phosphatase 67 Total Protein 7.0 Albumin 4.6 Globulin 2.4 Albumin/Globulin Ratio 1.9 Ethyl Alcohol < 3 MDM: CBC unremarkable, CMP unremarkable, ethanol nega tive Patient seen evaluated by xenia dozier thing cleared for discharge, patient was provided discount prescription cards at [facility], patient given resources for outpatient psychiatry. Patient denies SI HI at discharge, patient given return precautions verbalized understanding agreement the plan of care The results of pertinent cathy gnostic studies and exam findings were discussed. The patient s provisional diagnosis and pl an of care were discussed with the patient and present family. The patient and/or present famil y expressed understanding of the diagnosis and plan. The nurse was instructed to provide writte n instructions and appropriate follow-up information. The patient unde rstands their need and respo nsibility to obtain additional follow-up as instructed. The risks of med ications administered and pr escribed were discussed with the patient and family present. <Honorio Castañeda M - Last Filed: 12/13/21 14:30> Arrival - Arrival ED Triage Note: Patient stat es he does not feel safe at his home and he feels like someone is trying to kill. Patient denies SI/ HI but states he is hearing voices and seeing things. [facility] he think the discharge him too [facility]. H/o depression and anxiety, not taking meds. Psych HPI - General Primary Care Provider: Pcp-Shanda, Family/Social History - Social History Smoking Status: Current some day smoker Smoked/Used Tobacco in the Last 30 Days?: No Current or Hx of Recreational Drug use: No 1. How Often Do You Have a Drink Containing Alco hol: a. Never Physical Exam Triage Vital Signs: Temperature 36.8 C 12/11/21 16:19 Temperature Source Oral 12/11/21 16:19 Pulse Rate 75 12/11/21 16:19 Respiratory Rate 18 12/11/21 16:19 Blood Pressure 135/79 12/11/21 16:19 Blood Pressure Source Automatic Cuff 12/11/21 16 :19 Blood Pressure Mean 97 12/11/21 16:19 O2 Sat by Pulse Oximetry 100 12/11/21 16:19 Oxygen Delivery Method 12/11/21 16:19 Results/Orders - Results and Orders Result diagrams: 12/11/21 16:55 12/11/21 16:55 Lab Testing Results 12/11/21 16:55: WBC 10.8 H, RBC 4.79, Hgb 14.9, Hct 44.9, MCV 93.70, MCH 31.1, MCHC 33.20, RDW Coeff of Claribel 11.9, Plt Count 236.0 , MPV 11.4, Immature Gran % (Auto) 0.3, Neut % (Auto) 64.0, Lymph % (Auto) 27.8, Dickey % (Auto) 6 .3, Eos % (Auto) 1.0, Baso % (Auto) 0.6, Neut # (Auto) 6.9, Lymph # (Auto) 3.00, Dickey # (Auto) 0 .68, Eos # (Auto) 0.11, Baso # (Auto) 0.06, Immature Gran # (Auto) 0.03, Absolute Nucleated RBC 0, Nucleated RBC % (auto) 0 12/11/21 16:55: Sodium 141.0 , Potassium 3.8, Chloride 107, Carbon Dioxide 29, Anion Gap 5, BUN 12, Creatinine 0.78, Estimated C reat Clear 114.39, Est GFR ( Amer) > 60, Est GFR (Non-Af Amer) > 60, BUN/Creatinine Ratio 15, Glucose 90, Calculated Osmolality 291.2, Calcium 9.8, Total Bilirubin 0.3, AST 33, ALT 66 H, Alkal ine Phosphatase 67, Total Protein 7.0, Albumin 4.6, Globulin 2.4, Albumin/Globulin Ratio 1.9, Ethyl Alcohol < 3 12/11/21 17:00: Urine Color Yellow, Urine Clarity Clear, Urine pH 7.5, Ur Specific [place] 1.015, Urine Protein Negative, Urin e Glucose (UA) Negative, Urine Ketones Negative, Urine Blood Negative, Urine Nitrate Negative, Urin e Bilirubin Negative, Urine Urobilinogen 1.0, Ur Leukocyte Esterase Negative 12/11/21 17:00: Urine Opiate s Screen Negative, Urine Methadone Screen Negative, Ur Propoxyphene Screen Negative, Ur Barbitur ates Screen Negative, Ur Phencyclidine Scrn Negative, Ur Amphetamines Screen Negative, U Benzodiaz epines Scrn Negative, Urine Cocaine Screen Negative, U Cannabinoids Screen Negative MDM/COURSE Vital Signs Temperature 36.8 C 12/11/21 16:19 Pulse Rate 75 12/11/21 16:19 Respiratory Rate 18 12/11/21 16:19 Blood Pressure 135/79 12/11/21 16:19 O2 Sat by Pulse Oximetry 100 12/11/21 16:19 Temperature 36.8 C 12/11/21 16:19 Pulse Rate 82 12/11/21 18:39 Respiratory Rate 18 12/11/21 18:39 Blood Pressure 132/76 12/11/21 18:39 O2 Sat by Pulse Oximetry 99 12/11/21 18:39 - [facility] Medical Decision Making Narrative: 12/11/21 16:54 51-year-old male presents to the emergency department with auditory hallucinations, telling him to kill himself, known prior mo story of suicide attempt. Psychiatric evaluation pending medical clearance. Calm and co-opera tive on exam, normal mood and affect, obtaining labs for medical clearence. 12/13/21 14:29 Medically clear for psychiat [place] evaluation, no longer suicidal, cleared by psychiatry for discharge. - Medical Records Attestation: I reviewed the patient's medical re cords. Attending - ALLAN: Attending Note ALLAN: ED Attending Attestation: Yes Attending Attestation Statem ent: I personally saw the patient and performed a substantive portion of the visit including: all aspects of: medical decision making Discharge Plan - Discharge Clinical Impression: Anxiety, Depression Disposition: Home or Self-Care Condition: Good Instructions: ED Anxiety Reaction, ED Depression Prescriptions: No Action olanzapine 10 mg Tablet 10 mg PO QHS RF: 0 sertraline 50 mg Tablet 50 mg PO DAILY RF: 0 trazodone 100 mg Tablet 100 mg PO QHS PRN (Reason: Insomnia) RF: 0 Referrals: [facility] [Other] [facility] [Other] [facility] [Other] Pcp-Md Land MD [Primary Care Provider] - Print Language: Libyan - Discharge Data Time Seen by Provider: 12/11/21 16:00 - Depart Patient Account Discharge Date/Time: 12/11/21 18:39 Dictated By: Honorio Castañeda DO Signed By: Honorio Castañeda DO 12/13/21 1430 Christiana Davis NP 12/11/21 1810 DD/ 53 TD/TT: 12/11/21 165 Manufacturer Representative: DENISSE cc: MICHAEL* Pcp-Md DESIREE Land
[2023-03-02] MEDS ORDERED: LORazepam 2 MG/ML VIAL ONE (18:11)
[2023-03-02 18:31] LABS: Barbiturates NEGATIVE (NEGATIVE); Benzodiazepines NEGATIVE (NEGATIVE); Cocaine NEGATIVE (NEGATIVE); METHAMPHETAM NEGATIVE (NEGATIVE); Methadone NEGATIVE (NEGATIVE); Opiates NEGATIVE (NEGATIVE); Phencyclidine NEGATIVE (NEGATIVE); THC Cannibis NEGATIVE (NEGATIVE)
[2023-03-02 18:36] LABS: Absolute Lymphocytes (CBC) 2.7 K/uL (0.7-4.9); Hematocrit 42.1 % (39.6-49.0); Lymphocytes % 24.5 % (15.3-44.8); MCV 91.4 fL (80-100); MPV 9.1 fL (7.6-11.3); RBC Red Blood Cell Count 4.61 M/uL (4.33-5.43)
[2023-03-02 18:39] LABS: Protime INR 1.02
[2023-03-02 18:44] LABS: SARS-CoV-2 Antigen Rapid Res Negative (Negative)
[2023-03-02 18:51] LABS: ALT/SGPT 52 U/L (16-61); AST/SGOT 20 U/L (15-37); Albumin 4.2 g/dL (3.4-5.0); Alkaline Phosphatase 78 U/L (45-117); BUN Blood Urea Nitrogen 10 mg/dL (7-18); Bicarbonate 26 mEq/L (21-32); Bilirubin Direct 0.1 mg/dL (0-0.2); Bilirubin Indirect, Calculated 0.3 mg/dL (0.2-0.8); Bilirubin Total 0.4 mg/dL (0.2-1.0); Glomerular Filtration Rate 94 ml/min (=/>90); Glucose Level 115 mg/dL (74-106); Potassium 3.4 mEq/L (3.5-5.1); Protein, Total 7.8 g/dL (6.4-8.2); Sodium Level 137 mEq/L (136-145)
--- NOTE | 2023-03-02 19:26 | EDPHYS ---
Physician Documentation [facility] Name: Chi Kelley Age: 53 yrs Sex: Male : 1970 Arrival Date: 03/02/2023 Time: 17:19 Bed 16 Private MD: ED Physician Jarret Arndt HPI: 03/02 17:47 This 53 yrs old Male presents to ER via Unassigned with complaints of Suicidal Ideation.ms3 17:47 53-year-old male with past medical history of anxiety, chronic back pain, chronic ms3 obstructive lung disease, hyperlipidemia, glaucoma, hypothyroidism presents for suicidal thoughts. Patient states he wants to jump off a bridge to end his life. Patient states he does not feel like he is accomplish anything in his life and his sisters and brothers do not like him. Patient also states he can lower care for his and he lives in a "shitty trailer." Patient also notes he has not been able to sleep for 48 hours and has attempted to walk into traffic but the cars keeps worrying. Patient states he has also been hearing voices today that are telling him he is worthless, no good, and to kill himself. Patient states he has been seeing white doves today. Historical: - Allergies: 18:29 No Known Allergies; ld1 - Home Meds: 17:40 sertraline 100 mg oral tablet 2 tabs daily [Active]; quetiapine 400 mg oral tablet 1 nj1 tab every day at bedtime [Active]; mirtazapine 15 mg Oral tablet 1 tab every day at bedtime [Active]; olanzapine 15 mg oral Tablet,disintegrating 1 tab every day at bedtime [Active]; omeprazole 40 mg Oral capsule,delayed release (e.c.) 1 cap daily [Active]; - PMHx: 17:45 Anxiety; chronic back pain; Chronic obstructive lung disease; COPD; Glaucoma; ld1 Hypothyroidism; Pre-Diabetes; - PSHx: 17:45 Cholecystectomy; ld1 - Immunization history:: Adult Immunizations up to date, Client reports having NOT received the Covid vaccine. - Social history:: Smoking status: Patient denies any tobacco usage or history of. Patient/guardian denies using alcohol. ROS: 17:47 Constitutional: Negative for fever, and chills. Neck: Negative for injury, pain, and ms3 swelling, Cardiovascular: Negative for chest pain, and palpitations. Respiratory: Negative for shortness of breath, cough, wheezing, and pleuritic chest pain, Abdomen/GI: Negative for abdominal pain, nausea, vomiting, diarrhea, and constipation, MS/Extremity: Negative for injury and deformity, Skin: Negative for injury, rash, and discoloration. 17:47 Psych: Positive for anxiety, depression, auditory hallucinations, visual hallucinations, suicidal ideation. 17:47 All other systems are negative. Exam: 17:47 Constitutional: This is a well developed, well nourished patient who is awake, alert, ms3 and in no acute distress. Head/Face: Normocephalic, atraumatic. Neck: Trachea midline, no cervical lymphadenopathy. Supple, full range of motion without nuchal rigidity, or vertebral point tenderness. No Meningismus. Chest/axilla: Normal chest wall appearance and motion. Nontender with no deformity. Cardiovascular: Regular rate and rhythm with a normal S1 and S2. No gallops, murmurs, or rubs. Normal PMI, no JVD. No pulse deficits. Respiratory: Lungs have equal breath sounds bilaterally, clear to auscultation and percussion. No rales, rhonchi or wheezes noted. No increased work of breathing, no retractions or nasal flaring. Abdomen/GI: Soft, non-tender, with normal bowel sounds. No distension or tympany. No guarding or rebound. No evidence of tenderness throughout. Skin: Warm, dry with normal turgor. Normal color with no rashes, no lesions, and no evidence of cellulitis. MS/ Extremity: Pulses equal, no cyanosis. Neurovascular intact. Full, normal range of motion. 18:39 ECG was reviewed by the Attending Physician. ms3 Vital Signs: 17:40 BP 151 / 76; Pulse 88; Resp 18; Temp 99(TE); Pulse Ox 97% on R/A; Weight 90.72 kg; nj1 Height 5 ft. 9 in. ; 03/03 02:50 BP 113 / 77; Pulse 71; Resp 16; Temp 98.1; Pulse Ox 97% on R/A; Pain 0/10; pf1 07:08 BP 113 / 68; Pulse 86; Resp 16; Temp 97.9; Pulse Ox 98% on R/A; Pain 0/10; sg5 03/02 17:40 Body Mass Index 29.53 (90.72 kg, 175.26 cm) nj1 03/03 02:50 Pain Scale: Adult pf1 07:08 Pain Scale: Adult sg5 MDM: 03/02 17:46 Patient medically screened. ms3 17:47 Differential diagnosis: acute psychotic break, depression, psychosis secondary to ms3 non-compliance. 20:19 Data reviewed: vital signs, nurses notes, lab test result(s), and as a result, I will ms3 transfer to psychiatric facility. I considered the following discharge prescriptions or medication management in the emergency department Medications were administered in the Emergency Department. See MAR. Independent interpretation of the following test(s) in the Emergency Department EKG: See my EKG interpretation above. Care significantly affected by the following Social Determinants of Health: Poor access to healthcare and/or lack of insurance. Counseling: I had a detailed discussion with the patient and/or guardian regarding: the historical points, exam findings, and any diagnostic results supporting the discharge/admit diagnosis, the need to transfer to another facility. Transition of care: After a detail discussion of the patient's case, care is transferred to Jarret Arndt MD. 03/03 04:33 ED course: Patient had no acute issues while in the emergency department, patient sp4 received some IV Ativan for anxiety, patient was medically cleared and is now being transferred to [facility] for further management. 03/02 17:47 Order name: Acetaminophen; Complete Time: 19:24 ms3 03/02 17:47 Order name: BMP; Complete Time: 19:24 ms3 03/02 17:47 Order name: CBC with Diff; Complete Time: 19:24 ms3 03/02 17:47 Order name: Ethanol; Complete Time: 19:24 ms3 03/02 17:47 Order name: Hepatic Function; Complete Time: 19:24 ms3 03/02 17:47 Order name: Protime (+inr); Complete Time: 19:24 ms3 03/02 17:47 Order name: Ptt, Activated; Complete Time: 19:24 ms3 03/02 17:47 Order name: SARS-COV-2 Antigen Rapid; Complete Time: 19:24 ms3 03/02 17:47 Order name: Salicylate; Complete Time: 19:24 ms3 03/02 17:47 Order name: Urine Drug Screen; Complete Time: 19:24 ms3 03/02 17:47 Order name: EKG; Complete Time: 17:48 ms3 03/02 17:57 Order name: Diet Finger Food; Complete Time: 17:57 ld1 03/03 07:31 Order name: Diet Finger Food; Complete Time: 07:32 bd 03/02 17:47 Order name: EKG - Nurse/Tech; Complete Time: 18:08 ms3 03/02 17:47 Order name: IV Saline Lock; Complete Time: 18:08 ms3 03/02 17:47 Order name: Labs collected and sent; Complete Time: 18:08 ms3 03/02 17:47 Order name: O2 Per Protocol; Complete Time: 17:48 ms3 03/02 17:47 Order name: O2 Sat Monitoring; Complete Time: 17:48 ms3 03/02 17:47 Order name: Suicide Screening ([place]); Complete Time: 17:48 ms3 EC/16 18:39 Rate is 81 beats/min. Rhythm is regular. QRS [place] is Normal. [place] interval is normal. QRS ms3 interval is normal. Clinical impression: NSR w/ Non-specific ST/T Changes. Interpreted by me. Reviewed by me. Administered Medications: 18:16 Drug: Ativan IVP 2 mg Route: IVP; Site: left wrist; ld1 03/03 02:53 Follow up: Response: No adverse reaction as6 03/02 22:49 Drug: Nicoderm CQ Transdermal Patch 21 mg/24 hr 1 patches Route: Transdermal; Site: as6 affected area; 03/03 02:53 Follow up: Response: No adverse reaction as6 Disposition Summary: 03/02/23 19:25 Transfer Ordered Transfer Location: Psych Facility ms3 Reason: Higher level of care ms3 Condition: Stable ms3 Problem: new ms3 Symptoms: are unchanged ms3 Accepting Physician: (03/03/23 07:50) sg5 Diagnosis - Suicidal ideations ms3 - Visual hallucinations ms3 - Auditory hallucinations ms3 Forms: - Medication Reconciliation Form ms3 - SBAR form ms3 Signatures: Dispatcher [employer] EDMS Donavon Aguilar, DO ms3 Lisa Aguilar RN RN ld1 Jp Lee RN RN as6 Jarret Arndt MD MD sp4 Annette Mcleod RN RN sg5 Yashira Basilio RN RN nj1 Corrections: (The following items were deleted from the chart) 07:50 03/02 19:25 Dr tobias sg5
--- NOTE | 2023-03-02 19:26 | ER ---
Nurse's Notes [facility] Name: Chi Kelley Age: 53 yrs Sex: Male : 1970 Arrival Date: 03/02/2023 Time: 17:19 Bed 16 Private MD: Diagnosis: Suicidal ideations;Visual hallucinations;Auditory hallucinations Presentation: 03/02 17:22 Note Patient talking on the phone by triage room. This RN standing by patient to be nj1 able to triage and take him to room. Patient aware this RN is waiting for him to ask questions and bring him inside. 17:35 Note Patient done with phone call. This RN offers wheel chair, patient accepts. Taken nj1 to room 16 at this time. 17:40 Initial Sepsis Screen: Does the patient meet any 2 criteria? No. Patient's initial nj1 sepsis screen is negative. Does the patient have a suspected source of infection? No. Patient's initial sepsis screen is negative. 17:40 Risk Assessment: Do you want to hurt yourself or someone else? Patient reports nj1 desire/thoughts of hurting themselves or someone else. Provider notified. 18:28 Chief complaint: Patient states: "I came to the ER because I don't want to hurt myself. ld1 I have been having suicidal thoughts about stabbing myself with a knife or jumping off a bridge.". Coronavirus screen: At this time, the client does not indicate any symptoms associated with coronavirus-19. Ebola Screen: No symptoms or risks identified at this time. Initial Sepsis Screen:. Risk Assessment: Do you want to hurt yourself or someone else? Patient reports no desire to harm self or others. Onset of symptoms was March 02, 2023. 18:28 Method Of Arrival: Ambulatory ld1 18:28 Acuity: DORIAN 2 ld1 18:31 Initial Sepsis Screen: Does the patient meet any 2 criteria?. ld1 Triage Assessment: 18:29 General: Appears in no apparent distress. comfortable, Behavior is calm, cooperative, ld1 appropriate for age. Pain: Denies pain. EENT: No signs and/or symptoms were reported regarding the EENT system. Neuro: Level of Consciousness is awake, alert, obeys commands, Oriented to person, place, time, situation. Cardiovascular: Capillary refill < 3 seconds Patient's skin is warm and dry. Respiratory: Airway is patent Respiratory effort is even, unlabored. GI: Abdomen is round non-distended. : No signs and/or symptoms were reported regarding the genitourinary system. Derm: No signs and/or symptoms reported regarding the dermatologic system. Musculoskeletal: No signs and/or symptoms reported regarding the musculoskeletal system. Historical: - Allergies: 18:29 No Known Allergies; ld1 - Home Meds: 17:40 sertraline 100 mg oral tablet 2 tabs daily [Active]; quetiapine 400 mg oral tablet 1 nj1 tab every day at bedtime [Active]; mirtazapine 15 mg Oral tablet 1 tab every day at bedtime [Active]; olanzapine 15 mg oral Tablet,disintegrating 1 tab every day at bedtime [Active]; omeprazole 40 mg Oral capsule,delayed release (e.c.) 1 cap daily [Active]; - PMHx: 17:45 Anxiety; chronic back pain; Chronic obstructive lung disease; COPD; Glaucoma; ld1 Hypothyroidism; Pre-Diabetes; - PSHx: 17:45 Cholecystectomy; ld1 - Immunization history:: Adult Immunizations up to date, Client reports having NOT received the Covid vaccine. - Social history:: Smoking status: Patient denies any tobacco usage or history of. Patient/guardian denies using alcohol. Screenin:45 [facility] ED Fall Risk Assessment (Adult) History of falling in the last 3 months, ld1 including since admission No falls in past 3 months (0 pts). Abuse screen: Denies threats or abuse. Denies injuries from another. Nutritional screening: No deficits noted. Tuberculosis screening: No symptoms or risk factors identified. Assessment: 17:45 General: Appears in no apparent distress. comfortable, Behavior is calm, cooperative, ld1 appropriate for age. Pain: Denies pain. Neuro: Level of Consciousness is awake, alert, obeys commands, Oriented to person, place, time, situation. Cardiovascular: Capillary refill < 3 seconds Patient's skin is warm and dry. Respiratory: Airway is patent Respiratory effort is even, unlabored. GI: Abdomen is round non-distended. : No signs and/or symptoms were reported regarding the genitourinary system. EENT: No signs and/or symptoms were reported regarding the EENT system. Derm: No signs and/or symptoms reported regarding the dermatologic system. Musculoskeletal: No signs and/or symptoms reported regarding the musculoskeletal system. 19:00 Reassessment: Patient appears in no apparent distress at this time. Patient and/or as6 family updated on plan of care and expected duration. Pain level reassessed. Patient is alert, oriented x 3, equal unlabored respirations, skin warm/dry/pink. General:. 21:00 Reassessment: Patient appears in no apparent distress at this time. Patient and/or as6 family updated on plan of care and expected duration. Pain level reassessed. Patient is alert, oriented x 3, equal unlabored respirations, skin warm/dry/pink. 23:00 General: pt ambulated to bathroom. sitter at bedside, respirations even and non as6 labored, no other complaints or concerns at this time. 03/03 01:00 General: pt resting with eye closed, NAD, respirations even and non labored, no as6 complaints or concerns at this time. 03:00 General: VSS, NAD, pt resting with eyes closed, respirations even and non labored, pt as6 clam and cooperative, no complaints or concerns at this time, sitter remains with pt . 03:47 Reassessment: Spoke with Mandi with [facility]. aa9 03:52 Reassessment: spoke with Lydia Vasquez. aa9 03:57 Reassessment: spoke with [facility]. aa9 05:00 Reassessment: Patient appears in no apparent distress at this time. aa9 05:29 Reassessment: spoke with Chip from [facility] Dr Arce [id number] facility aa9 number [phone]. 06:55 Reassessment: Patient appears in no apparent distress at this time. Patient and/or aa9 family updated on plan of care and expected duration. Pain level reassessed. Patient is alert, oriented x 3, equal unlabored respirations, skin warm/dry/pink. 07:08 General: Appears in no apparent distress. comfortable, Behavior is calm, cooperative, sg5 appropriate for age, Patient awaiting transport to [facility] via EMS.. Pain: Denies pain. Neuro: Level of Consciousness is awake, alert, obeys commands, Oriented to person, place, time, situation. Cardiovascular: Capillary refill < 3 seconds Patient's skin is warm and dry. Respiratory: Airway is patent Respiratory effort is even, unlabored. GI: Abdomen is round non-distended. : No signs and/or symptoms were reported regarding the genitourinary system. EENT: No signs and/or symptoms were reported regarding the EENT system. Derm: No signs and/or symptoms reported regarding the dermatologic system. Musculoskeletal: No signs and/or symptoms reported regarding the musculoskeletal system. 07:26 Reassessment: Patient Belongings Bag brought to nurse station by Security for transport.sg5 07:41 Reassessment: [facility] arrived for transfer. sg5 07:46 Reassessment: [facility] leaving with patient, belongings given to EMS and food sg5 sent with EMS. Psych: 03/02 18:00 [place] Suicide Severity Screening: In the past month, have you wished you were ld1 or wished you could go to sleep and not wake up? Patient responds "yes." "In the past month, have you actually had any thoughts of killing yourself?" Patient responds "yes." "In your lifetime, have you ever done anything, started to do anything, or prepared to do anything to end your life?" Patient responds "no.". Subjective: Patient's mood is sad. Objective: Patient is cooperative. Interventions: Removed personal items and placed in bag. Patient placed in hospital gown. Searched person for dangerous items. Urine collected and sent for urine drug test. Belonging list filled out. Safety Checks: Personal items have been removed. Door is open. Pt denies substance abuse. Commitment: Patient will be a voluntary commitment. Vital Signs: 17:40 BP 151 / 76; Pulse 88; Resp 18; Temp 99(TE); Pulse Ox 97% on R/A; Weight 90.72 kg; nj1 Height 5 ft. 9 in. ; 03/03 02:50 BP 113 / 77; Pulse 71; Resp 16; Temp 98.1; Pulse Ox 97% on R/A; Pain 0/10; pf1 07:08 BP 113 / 68; Pulse 86; Resp 16; Temp 97.9; Pulse Ox 98% on R/A; Pain 0/10; sg5 03/02 17:40 Body Mass Index 29.53 (90.72 kg, 175.26 cm) [facility] 03/03 02:50 Pain Scale: Adult pf1 07:08 Pain Scale: Adult sg5 ED Course: 03/02 17:22 Patient arrived in ED. ja2 17:27 Donavon Aguilar DO is Attending Physician. ms3 17:28 Ian Ibrahim PA is PHCP. cp 17:45 Patient has correct armband on for positive identification. Placed in gown. Bed in low ld1 position. Call light in reach. Side rails up X2. Pulse ox on. NIBP on. Door closed. Noise minimized. Warm blanket given. 17:45 No provider procedures requiring assistance completed. ld1 17:48 Lisa Aguilar, RN is Primary Nurse. ld1 18:16 SARS-COV-2 Antigen Rapid Sent. ld1 18:16 Urine Drug Screen Sent. ld1 18:29 Triage completed. ld1 18:29 Arm band placed on right wrist. EKG completed in triage. Results shown to MD. ld1 20:21 Attending Physician role handed off by Donavon Aguilar DO ms3 20:21 Jarret Arndt MD is Attending Physician. ms3 03/03 03:02 Faxed all available Psych Facilities listed on Psych transfer sheet. wm 04:10 Pt accepted for transfer to [facility] by Dr. Kumar \\T\\ [id number]. wm 07:50 IV discontinued. sg5 Administered Medications: 03/02 18:16 Drug: Ativan IVP 2 mg Route: IVP; Site: left wrist; ld1 03/03 02:53 Follow up: Response: No adverse reaction as6 03/02 22:49 Drug: Nicoderm CQ Transdermal Patch 21 mg/24 hr 1 patches Route: Transdermal; Site: as6 affected area; 03/03 02:53 Follow up: Response: No adverse reaction as6 Medication: 03/02 17:45 VIS not applicable for this client. ld1 Outcome: 19:25 ER care complete, transfer ordered by . ms3 03/03 02:52 Condition: stable as6 07:47 Transferred by ground EMS Note: [facility] sg5 07:47 Condition: good 07:47 Instructed on the need for transfer, Demonstrated understanding of instructions. 07:50 Patient left the ED. sg5 Signatures: Ian Ibrahim PA PA cp Donavon Aguilar DO DO ms3 Lisa Aguilar RN RN ld1 Hannah Martinez Diana Cortes 2 Jp Lee RN RN as6 Mehnaz Yeh RN RN aa9 Jordana Day, RN RN pf1 Annette Mcleod RN RN sg5 Yashira Basilio RN RN nj1 Corrections: (The following items were deleted from the chart) 05:00 03:52 Reassessment: spoke with chi Kelley with [facility] aa9
[2023-03-02] MEDS ORDERED: NICOTINE 21 MG/PAT TD ONE (22:51)
[2023-03-03 08:00] VITALS: BP 113/68; TEMP 97.9; O2SAT 98
--- NOTE | 2023-03-03 11:46 | EKG ---
Test Date: 2023-03-02 Test Time: 18:11:26 Safety Investigator: Lang RICH MEASUREMENT RESULTS: Intervals: Rate: 81 MN: 164 QRSD: 80 QT: 360 QTc: 418 [place]: P: 15 MN: 164 QRS: 2 T: -13 INTERPRETIVE STATEMENTS: Normal sinus rhythm Voltage criteria for left ventricular hypertrophy Inferior infarct, age undetermined Abnormal ECG Compared to ECG 02/26/2022 21:56:41 Myocardial infarct finding now present Electronically Signed On 03-03-23 11:44:42 CDT by Zack Tong
== END 2023-03-03 07:50 ==
LOC: ER 17:19
DX: R45.851 Suicidal ideations (principal); R44.0 Auditory hallucinations; R44.1 Visual hallucinations; F41.9 Anxiety disorder, unspecified; R73.03 Prediabetes; J44.9 Chronic obstructive pulmonary disease, unspecified; E03.9 Hypothyroidism, unspecified; Z20.822 Contact with and (suspected) exposure to COVID-19
CPT/HCPCS: 93005; 85025; 80048; 36415; 85610; 80076; 85730; 80307; 87811; G0480 ×3

== ENCOUNTER 2023-03-19 20:33 | Emergency (ER) | payer OTHER ==
--- OUTSIDE RECORDS SUMMARY | 2023-03-19 20:36 | XMS REPORT | Continuity of Care Document ---
:1970 Author Organization [facility] t Address [address] [place] [address] Care Team Providers Name Role Phone Asked, [...] Clinician No Known DA Active U 0 [facility]24 Allergie 00:00: s 00 No Known DA Active U 2021-0 [facility] 2[facility]11 Allergie 00:00: s 00 Social History Social Habit Start Date Stop Date Quantity Comments Source Gender identity [facility] Sexual orientation [facility] History of Social 2022-11-25 2022-11-25 [facility] function 00:00:00 00:00:00 Sex Ass[birth year] [facility] 00:00:00 00:00:00 Smoking Status Start Date Stop Date Source Tobacco smoking consumption unknown [facility] Medications This patient has no known medications. Vital Signs Vital Name Observation Time Observation Value Comments Source Systolic blood 2022-11-25 14:54:00 136 mm[Hg] [facility] pressure Diastolic blood 2022-11-25 14:54:00 78 mm[Hg] [facility] pressure Heart rate 2022-11-25 14:54:00 84 /min [facility] Body temperature 2022-11-25 14:54:00 36.61 Evy [facility] Respiratory rate 2022-11-25 14:54:00 17 /min [facility] Oxygen saturation in 2022-11-25 14:54:00 98 /min [facility] Arterial blood by Pulse oximetry Body height 2022-11-25 08:50:00 175.3 cm [facility] Body weight 2022-11-25 08:50:00 97.977 kg [facility] BMI 2022-11-25 08:50:00 31.90 kg/m2 [facility] Procedures Procedure Date / Time Performing Clinician Source Performed ECG ED PRELIMINARY 2022-11-25 11:23:18 Tu, [facility] INTERPRETATION URINE CULTURE 2022-11-25 09:37:00 Tu, [facility] COVID-19 QUALITATIVE 2022-11-25 09:12:00 Tu, [facility] RT-PCR CBC WITH PLATELET AND 2022-11-25 09:12:00 Tu, [facility] DIFFERENTIAL COMPREHENSIVE METABOLIC 2022-11-25 09:12:00 Tu, [facility] PANEL THYROID STIMULATING 2022-11-25 09:12:00 Tu, [facility] HORMONE T4, FREE 2022-11-25 09:12:00 Tu, [facility] ALCOHOL LEVEL, BLOOD 2022-11-25 09:12:00 Tu, [facility] ACETAMINOPHEN LEVEL 2022-11-25 09:12:00 Tu, [facility] SALICYLATE LEVEL 2022-11-25 09:12:00 Tu, [facility] URINE DRUGS OF ABUSE 2022-11-25 09:12:00 Tu, [facility] SCREEN URINALYSIS SCREEN AND 2022-11-25 09:12:00 Tu, [facility] MICROSCOPY, WITH REFLEX TO CULTURE ESTIMATED GFR 2022-11-25 09:12:00 Kalen [facility] ECG 12-LEAD 2022-11-25 08:35:34 Kalen [facility] Encounters Start End Encounter Admission Attending Care Care Encounter Source Date/Time Date/Time Type Type Clinicians Facility Department ID 2021-12-11 Inpatient [facility] [id number] [facility] 15:59:00 21 2021-11-28 Inpatient [facility] [id number] [facility] 18:18:00 50 2021-11-28 Inpatient [facility] [id number] [facility] 18:18:00 50 2022-11-25 2022-11-25 Emergency , WenceslaoireneAriel 1.2.840.1 [id number] [facility] 02:49:00 21:05:[address] 3.430.2.7 Hospit a .3.423997 l .8 2022-11-25 2022-11-25 Emergency Tu, WenceslaoChuck 1.2.840.1 [id number] [facility] 02:49:00 21:05:[address] 3.430.2.7 Hospit a .3.885366 l .8 2022-11-25 2022-11-25 Travel 1.2.840.1 1.2.594.510 [id number] [facility] 00:00:00 00:00:[address] 3.430.2.7 0.2.7.3.698 Ho spita .3.026147 084.8 l .8 2022-11-25 2022-11-25 Travel 1.2.840.1 1.2.400.662 [id number] [facility] 00:00:00 00:00:[address] 3.430.2.7 0.2.7.3.698 Ho spita .3.592012 084.8 l .8 2022-04-30 2022-04-30 Outpatient AGUILA AMBRIZ [facility] [address] 01:18:00 01:18:00 HN 0714 da [facility] h Program 2021-12-11 2021-12-11 Emergency [facility] [id number] [facility] 15:59:00 15:59:00 21 Results Test Description Test Time Test Comments Results Result Comments Source ECG 12 lead 2022-11-27 01:20:51 Test Item Value Reference Range Interpretation Comme nts Ventricular rate (test code = 253) 76 Atrial rate (test code = 255) 76 NE interval (test code = 266) 174 QRSD [...] sinus rhy thm-Normal ECG-No [facility] ECGs available- [facility] [id number] 01:20:51 Test Item Value Reference Range Interpretation Comments Ventricular rate (test 76 code = 253) Atrial rate (test code = 76 255) NE interval (test code = 174 266) QRSD [...] available-Electronica lly Signed By Neva Anne MD ([id number]) on 11/26/2022 7:20:49 PM [facility] [id number] 01:20:51 Test Item Value Reference Range Interpretation Comments Ventricular rate (test 76 code = 253) Atrial rate (test code = 76 255) NE interval (test code = 174 266) QRSD [...] available-Electronica lly Signed By Neva Anne MD ([id number]) on 11/26/2022 7:20:49 PM [facility]2023-02-09 18:28:00 Test Item Value Reference Range Interpretation Comments Urine culture Mixed jarod Specimen isolate (test <=10-3 col/cc InformationSp ecimen code = 68116-7) Source: [facility] Site: [facility]2023-02-09 18:28:00 Test Item Value Reference Range Interpretation Comments Urine culture Mixed jarod Specimen isolate (test <=10-3 col/cc InformationSp ecimen code = 39101-2) Source: [facility] Site: [facility] [id number] 18:28:00 Test Item Value Reference Range Interpretation Comments Urine culture Mixed jarod Specimen isolate (test <=10-3 col/cc InformationSp ecimen code = 26499-9) Source: [facility] [Presence] in Respiratory specimen by LENKA with probe [id number] 04:11:08 Test Item Value Reference Range Interpretation Comments SARS-CoV-2 (COVID-19) RNA Not detected [Presence] in Respiratory specimen by LENKA with probe detection (test code = 49169-0) Whether patient is employed in a Unknown healthcare setting (test code = 52188-1) Whether the patient has symptoms Unknown related to condition of interest (test code = 05856-1) Whether the patient was Unknown hospitalized for condition of interest (test code = 88021-6) Whether the patient was admitted Unknown to intensive care unit (ICU) for condition of interest (test code = 14367-0) Whether patient resides in a Unknown congregate care setting (test code = 33346-6) status (test code = Unknown 52590-0) Date and time of symptom onset Unknown (test code = 44433-0) KAMERON HORNE NINI, Urinalysis Rflx Cult/[id number] 17:00:00 Test Item Value Reference Range Interpretation Comments Color,Urine (test code = UCOL) Yellow Yellow Clarity,Urine (test code = Clear Clear UCLAR) Ph, Urine (test code = UPH) 7.5 5.0-9.0 N Specific Marion,Urine (test 1.015 1.005-1.030 N code = USG) [...] Negative mg/dL Negative code = ULEU) Drug Screen,[id number] 17:00:00 Test Item Value Reference Range Interpretation [...] Urine (test Negative Negative code = UPROP) Sars-CoV-2/FLU A/B RSV [id number] 16:55:00 Test Item Value Reference Range Interpretation [...] SARS-CoV-2 PCR Result:) Complete Blood Count Auto [id number] 16:55:00 Test Item Value Reference Range Interpretation [...] code = NRBCP) 0 % Comprehensive Metabolic [id number] 16:55:00 Test Item Value Reference Range Interpretation [...] 67 U/L 46-116 N = ALP) Ethanol [id number] 16:55:00 Test Item Value Reference Range Interpretation Comments Ethanol (test code < 3 mg/dL The pharm acological = ETOH) response to blo od alcohol levels mayvary from individual to i ndividual. The fatal umair ntrationhas been reported t o be >400mg/dL. Complete Blood Count Auto [id number] 19:00:00 Test Item Value Reference Range Interpretation [...] (test code = NRBCP) 0 % Drug Screen,[id number] 19:00:00 Test Item Value Reference Range Interpretation [...] Negative Negative code = UPROP) UA, Urinalysis [id number] 19:00:00 Test Item Value Reference Range Interpretation Comments Color,Urine (test code = Yellow Yellow UCOL) Clarity,Urine (test code = Clear Clear UCLAR) PH,Urine (test code = 6.5 5.5-8.5 UPH.XX) Specific Marion,Urine 1.015 1.005-1.030 N (test code = USG) [...] (test code = ULEU) Sars-CoV-2/FLU A/B RSV [id number] 19:00:00 Test Item Value Reference Range Interpretation [...] code = SARS-CoV-2 PCR Result:) Comprehensive Metabolic [id number] 19:00:00 Test Item Value Reference Range Interpretation [...] Osmolality,Calculated (test code 291.8 = OSMOC) Ethanol [id number] 19:00:00 Test Item Value Reference Range Interpretation Comments Ethanol (test code < 3 mg/dL The pharm acological = ETOH) response to blo od alcohol levels mayvary from individual to i ndividual. The fatal umair ntrationhas been reported t o be >400mg/dL. Notes Date/Time Note Provider Source 2021-12-11 16:54:00-00:00 [facility] [address] [id number] Emergency Department Document Signed Patient: Chi Kelley Medical Record#: [id number] 0 : 1970 Acct:[id number] Age/Sex: 51 / M Admit/Reg Date: 12/11/21 Loc: [facility] Room: Report Number: [id number] Attending Dr: Honorio Castañeda DO <Christiana Davis [...] feels paranoid, patient also reports seeing [facility] get him. Patient states was discharged from hospital yesterday, but has been unab le to afford the medications he was prescribed until the of the month. Patient denies SI HI. [...] % (Auto) 64.0 Lymph % (Auto) 27.8 Foard % (Auto) 6.3 Eos % (Auto) 1.0 Baso % (Auto) 0.6 Neut # (Auto) 6.9 Lymph # (Auto) 3.00 Foard # (Auto) 0.68 Eos # (Auto) 0.11 [...] ethanol nega tive Patient seen evaluated by be havioral thing cleared for discharge, patient was provided discount prescription cards at [facility], patient given resources for outpatient psychiatry. [...] Patient says he was admitted here and discha rged yesterday and he think the discharge him too soon. H/o depression and anxiety, not taking meds. Psych HPI - General Primary Care Provider: Pcp-Md Shanda Family/Social History - Social History Smoking Status: [...] % (Auto) 64.0, Lymph % (Auto) 27.8, Foard % (Auto) 6 .3, Eos % (Auto) 1.0, Baso % (Auto) 0.6, Neut # (Auto) 6.9, Lymph # (Auto) 3.00, Foard # (Auto) 0 .68, Eos # (Auto) [...] Clarity Clear, Urine pH 7.5, Ur Specific Marion 1.015, Urine Protein Negative, Urin e Glucose [...] by Pulse Oximetry 99 12/11/21 18:39 - [facility] Medical Decision Making Narrative: 12/11/21 16:54 51-year-old male presents to the emergency department with auditory hallucinations, telling him to kill himself, known prior hi story of suicide attempt. Psychiatric evaluation pending [...] QHS PRN (Reason: Insomnia) RF: 0 Referrals: [facility] [Other] [facility] [Other] [facility] [Other] Pcp-Md Land MD [Primary Care Provider] - Print Language: Afghan - Discharge Data Time Seen by Provider: 12/11/21 16:00 - Depart Patient Account Discharge Date/Time: 12/11/21 18:39 Dictated By: Honorio Castañeda DO Signed By: Honorio Castañeda DO 12/13/21 1430 Christiana Davis NP 12/11/21 1810 DD/ 53 TD/TT: 12/11/21 165 [employer]: DENISSE cc: PCPNO* Pcp-Md DESIREE Land
--- NOTE | 2023-03-19 21:24 | ER ---
Nurse's Notes [facility] Name: Chi Kelley Age: 53 yrs Sex: Male : 1970 Arrival Date: 03/19/2023 Time: 20:33 Bed 17 Private MD: Diagnosis: Insomnia;Other depressive episodes;Suicidal ideations-resolved, no plan Presentation: 03/19 20:39 Chief complaint: EMS states: 53 year old male reports that has not been able to sleep ha1 for the past 12 hours because he ran out of medication. Coronavirus screen: Vaccine status:. Ebola Screen: No symptoms or risks identified at this time. Initial Sepsis Screen: Does the patient meet any 2 criteria? No. Patient's initial sepsis screen is negative. Does the patient have a suspected source of infection? No. Patient's initial sepsis screen is negative. Risk Assessment: Do you want to hurt yourself or someone else? Patient reports no desire to harm self or others. Onset of symptoms was March 19, 2023. 20:39 Method Of Arrival: EMS: [facility] ha1 20:39 Acuity: DORIAN 4 ha1 Triage Assessment: 20:38 General: Appears comfortable, Behavior is calm, cooperative. Pain: Denies pain. Neuro: ha1 Level of Consciousness is awake, alert, obeys commands, Oriented to person, place, time, situation. Neuro: Reports insommia. Cardiovascular: Capillary refill < 3 seconds Patient's skin is warm and dry. Respiratory: Airway is patent Respiratory effort is even, unlabored, Respiratory pattern is regular, symmetrical. GI: No signs and/or symptoms were reported involving the gastrointestinal system. : No signs and/or symptoms were reported regarding the genitourinary system. Derm: Skin is pink, warm \T\ dry. Musculoskeletal: Circulation, motion, and sensation intact. Range of motion: intact in all extremities. Historical: - Allergies: 20:42 No Known Allergies; ha1 - Home Meds: 20:42 mirtazapine 15 mg Oral tablet 1 tab every day at bedtime [Active]; olanzapine 15 mg ha1 Oral Tablet,disintegrating 1 tab every day at bedtime [Active]; omeprazole 40 mg Oral capsule,delayed release (e.c.) 1 cap daily [Active]; quetiapine 400 mg Oral tablet 1 tab every day at bedtime [Active]; sertraline 100 mg Oral tablet 2 tabs daily [Active]; - PMHx: 20:42 Anxiety; chronic back pain; Chronic obstructive lung disease; COPD; Glaucoma; ha1 Hypothyroidism; Pre-Diabetes; - PSHx: 20:42 Cholecystectomy; ha1 - Immunization history:: Adult Immunizations unknown. - Social history:: Smoking status: unknown. - Family history:: not pertinent. Screenin:38 [facility] ED Fall Risk Assessment (Adult) History of falling in the last 3 months, ha1 including since admission No falls in past 3 months (0 pts) Confusion or Disorientation No (0 pts) Intoxicated or Sedated No (0 pts) Impaired Gait No (0 pts) Mobility Assist Device Used No (0 pt) Altered Elimination No (0 pt) Score/Fall Risk Level 0 - 2 = Low Risk Oriented to surroundings, Maintained a safe environment, Educated pt \T\ family on fall prevention, incl call for assistance when getting out of bed. 21:53 Abuse screen: Denies threats or abuse. Denies injuries from another. Nutritional ha1 screening: No deficits noted. Tuberculosis screening: No symptoms or risk factors identified. Assessment: 20:38 Reassessment: see triage assessment. ha1 21:35 Reassessment: Patient and/or family updated on plan of care and expected duration. Pain ha1 level reassessed. Patient is alert, oriented x 3, equal unlabored respirations, skin warm/dry/pink. Patient denies pain at this time. Patient states feeling better. Patient states symptoms have improved. Vital Signs: 20:39 BP 107 / 69; Pulse 107; Resp 18 S; Temp 98.1; Pulse Ox 99% on R/A; Weight 79.38 kg; ha1 Height 5 ft. 9 in. ; Pain 0/10; 21:00 BP 106 / 64; Pulse 97; Resp 18 S; Pulse Ox 100% on R/A; ha1 21:53 BP 108 / 65; Pulse 98; Resp 18 S; Pulse Ox 100% on R/A; ha1 20:39 Body Mass Index 25.84 (79.38 kg, 175.26 cm) ha1 20:39 Pain Scale: Adult ha1 ED Course: 03/18 20:38 Arm band placed on right wrist. ha1 03/19 20:37 Patient arrived in ED. ag3 20:38 Patient has correct armband on for positive identification. Placed in gown. Bed in low ha1 position. Call light in reach. Side rails up X 1. 20:39 Deepthi Schulte, MELINA is Primary Nurse. ha1 20:40 Ian Rhoades MD is Attending Physician. [facility] 20:42 Triage completed. ha1 21:23 Stephane Hankins MD is Referral Physician. [facility] 21:55 No provider procedures requiring assistance completed. Patient did not have IV access ha1 during this emergency room visit. Administered Medications: 21:40 Drug: Zoloft 100 mg Route: PO; ha1 21:52 Follow up: Response: No adverse reaction ha1 21:40 Drug: Restoril PO 30 mg Route: PO; ha1 21:52 Follow up: Response: No adverse reaction ha1 Medication: 21:56 VIS not applicable for this client. ha1 Outcome: 21:24 Discharge ordered by . [facility] 21:55 Discharged to home ambulatory, [employer] ha1 21:55 Condition: stable 21:55 Discharge instructions given to patient, Instructed on discharge instructions, follow up and referral plans. medication usage, Demonstrated understanding of instructions, follow-up care, medications, Prescriptions given X 1. 21:56 Patient left the ED. ha1 Signatures: Ian Rhoades MD MD cha Gomez, Alice [facility] Deepthi Schulte RN RN ha1 Corrections: (The following items were deleted from the chart) 0603 01:34 06/02 21:53 Reassessment: Patient and/or family updated on plan of care and expected ha1 duration. Pain level reassessed. Patient is alert, oriented x 3, equal unlabored respirations, skin warm/dry/pink. Patient denies pain at this time. Patient states feeling better. Patient states symptoms have improved. ha1
--- NOTE | 2023-03-19 21:25 | EDPHYS ---
Physician Documentation [facility] Name: Chi Kelley Age: 53 yrs Sex: Male : 1970 Arrival Date: 03/19/2023 Time: 20:33 Bed 17 Private MD: ED Physician Ian Rhoades HPI: 03/19 21:15 This 53 yrs old Male presents to ER via EMS with complaints of Insomnia. paige 21:15 The patient presents to the emergency department with suicide ideation, but the patient paige has no formulated plan. Onset: The symptoms/episode began/occurred just prior to arrival. Past psychiatric history: Prior diagnosis: anxiety. cant sleep , out of zoloft. Associated signs and symptoms: Pertinent positives;. Onset: The symptoms/episode began/occurred 1 day(s) ago. Severity of symptoms: At their worst the symptoms were mild in the emergency department the symptoms are unchanged. The patient has experienced similar episodes in the past, several times. Historical: - Allergies: 20:42 No Known Allergies; ha1 - Home Meds: 20:42 mirtazapine 15 mg Oral tablet 1 tab every day at bedtime [Active]; olanzapine 15 mg ha1 Oral Tablet,disintegrating 1 tab every day at bedtime [Active]; omeprazole 40 mg Oral capsule,delayed release (e.c.) 1 cap daily [Active]; quetiapine 400 mg Oral tablet 1 tab every day at bedtime [Active]; sertraline 100 mg Oral tablet 2 tabs daily [Active]; - PMHx: 20:42 Anxiety; chronic back pain; Chronic obstructive lung disease; COPD; Glaucoma; ha1 Hypothyroidism; Pre-Diabetes; - PSHx: 20:42 Cholecystectomy; ha1 - Immunization history:: Adult Immunizations unknown. - Social history:: Smoking status: unknown. - Family history:: not pertinent. ROS: 21:15 Constitutional: Negative for fever, chills, and weight loss, Eyes: Negative for injury, paige pain, redness, and discharge, ENT: Negative for injury, pain, and discharge, Neck: Negative for injury, pain, and swelling, Cardiovascular: Negative for chest pain, palpitations, and edema, Respiratory: Negative for shortness of breath, cough, wheezing, and pleuritic chest pain, Abdomen/GI: Negative for abdominal pain, nausea, vomiting, diarrhea, and constipation, Back: Negative for injury and pain, : Negative for injury, bleeding, discharge, and swelling, MS/Extremity: Negative for injury and deformity, Skin: Negative for injury, rash, and discoloration, Neuro: Negative for headache, weakness, numbness, tingling, and seizure, Allergy/Immunology: Negative for hives, rash, and allergies, Endocrine: Negative for neck swelling, polydipsia, polyuria, polyphagia, and marked weight changes, Hematologic/Lymphatic: Negative for swollen nodes, abnormal bleeding, and unusual bruising. 21:15 Psych: Positive for insomnia, suicidal ideation. Exam: 21:15 Constitutional: This is a well developed, well nourished patient who is awake, alert, paige and in no acute distress. Head/Face: Normocephalic, atraumatic. Eyes: Pupils equal round and reactive to light, extra-ocular motions intact. Lids and lashes normal. Conjunctiva and sclera are non-icteric and not injected. Cornea within normal limits. Periorbital areas with no swelling, redness, or edema. ENT: Nares patent. No nasal discharge, no septal abnormalities noted. Tympanic membranes are normal and external auditory canals are clear. Oropharynx with no redness, swelling, or masses, exudates, or evidence of obstruction, uvula midline. Mucous membranes moist. Neck: Trachea midline, no thyromegaly or masses palpated, and no cervical lymphadenopathy. Supple, full range of motion without nuchal rigidity, or vertebral point tenderness. No Meningismus. Chest/axilla: Normal chest wall appearance and motion. Nontender with no deformity. No lesions are appreciated. Cardiovascular: Regular rate and rhythm with a normal S1 and S2. No gallops, murmurs, or rubs. Normal PMI, no JVD. No pulse deficits. Respiratory: Lungs have equal breath sounds bilaterally, clear to auscultation and percussion. No rales, rhonchi or wheezes noted. No increased work of breathing, no retractions or nasal flaring. Abdomen/GI: Soft, non-tender, with normal bowel sounds. No distension or tympany. No guarding or rebound. No evidence of tenderness throughout. Back: No spinal tenderness. No costovertebral tenderness. Full range of motion. Skin: Warm, dry with normal turgor. Normal color with no rashes, no lesions, and no evidence of cellulitis. MS/ Extremity: Pulses equal, no cyanosis. Neurovascular intact. Full, normal range of motion. Neuro: Awake and alert, GCS 15, oriented to person, place, time, and situation. Cranial nerves II-XII grossly intact. Motor strength 5/5 in all extremities. Sensory grossly intact. Cerebellar exam normal. Normal gait. Psych: Awake, alert, with orientation to person, place and time. Behavior, mood, and affect are within normal limits. 21:15 Psych: Behavior/mood is pleasant, cooperative, Affect is calm, Oriented to person, place, time, Patient has no thoughts/intents to harm self or others. Judgement / Insight is normal. Memory is normal. Delusions/hallucinations are not present. Vital Signs: 20:39 BP 107 / 69; Pulse 107; Resp 18 S; Temp 98.1; Pulse Ox 99% on R/A; Weight 79.38 kg; ha1 Height 5 ft. 9 in. ; Pain 0/10; 21:00 BP 106 / 64; Pulse 97; Resp 18 S; Pulse Ox 100% on R/A; ha1 21:53 BP 108 / 65; Pulse 98; Resp 18 S; Pulse Ox 100% on R/A; ha1 20:39 Body Mass Index 25.84 (79.38 kg, 175.26 cm) ha1 20:39 Pain Scale: Adult ha1 MDM: 20:40 Patient medically screened. paige 21:23 Differential diagnosis: drug withdrawal. acute psychotic break, depression. paige Differential Diagnosis altered mental status. Data reviewed: vital signs, nurses notes. Consideration of Admission/Observation Escalation of care including admission/observation considered. I considered the following discharge prescriptions or medication management in the emergency department Medications were administered in the Emergency Department. See MAR. Test considered but Not performed: Labs: no labs. Administered Medications: 21:40 Drug: Zoloft 100 mg Route: PO; ha1 21:52 Follow up: Response: No adverse reaction ha1 21:40 Drug: Restoril PO 30 mg Route: PO; ha1 21:52 Follow up: Response: No adverse reaction ha1 Disposition Summary: 03/19/23 21:24 Discharge Ordered Location: Home paige Problem: new apige Symptoms: have improved paige Condition: Stable paige Diagnosis - Insomnia paige - Other depressive episodes paige - Suicidal ideations - resolved, no plan paige Followup: paige - With: Private Physician - When: 2 - 3 days - Reason: Recheck today's complaints, Continuance of care, Re-evaluation by your physician Followup: paige - With: Stephane Hankins MD - When: 2 - 3 days - Reason: Recheck today's complaints, Re-evaluation by your physician Discharge Instructions: - Discharge Summary Sheet paige - Insomnia paige - Suicidal Feelings: How to Help Yourself paige - Helping Someone Who is Suicidal paige - Stress, Adult paige Forms: - Medication Reconciliation Form paige - Thank You Letter paige - Antibiotic Education paige - Prescription Opioid Use paige Prescriptions: - Zoloft 100 mg Oral tablet - take 1 tablet by ORAL route daily; 30 tablet; Refills: 0, Product Selection paige Permitted Signatures: Ian Rhoades MD MD cha Ayala, Heidy, RN RN ha1
[2023-03-19] MEDS ORDERED: TEMAZEPAM 15 MG CAP ONE (21:40)
[2023-03-19] MEDS ORDERED: SERTRALINE HCL 100 MG TAB ONE (21:52)
[2023-03-19 22:37] VITALS: TEMP 98.1
[2023-03-19 22:39] VITALS: BP 108/65; O2SAT 100
== END 2023-03-19 21:56 | disposition home or self-care (01) ==
LOC: ER 20:33
DX: G47.00 Insomnia, unspecified (principal); F32.89 Other specified depressive episodes
CPT/HCPCS: 99284

== ENCOUNTER 2023-06-01 14:28 | Emergency (ER) | payer OTHER ==
--- OUTSIDE RECORDS SUMMARY | 2023-06-01 14:32 | XMS REPORT | Continuity of Care Document ---
:1970 Author Organization [facility] t Address [address] [place] [address] Care Team Providers Name Role Phone Asked, No Pcp Primary Care Physician Unavailable Arash RAMÍREZ, Kalen Christianson Attending Clinician SOLEDAD Attending Clinician Unavailable MD KALEN ERICKSON Admitting Clinician Unavailable SOLEDAD Admitting Clinician Unavailable Payers Payer Name Policy Type Policy Number Effective Date Expiration Date S ource Problems This patient has no known problems. Allergies, Adverse Reactions, Alerts Allergy Allergy Status Severity Reaction(s) Onset Inactive Treating Comm ents Source Name Type Date Date Clinician No Known [facility] Allergie 00:00: s 00 No Known DA Active U 0 [facility] 2-11 Allergie 00:00: s 00 Social History Social Habit Start Date Stop Date Quantity Comments Source Gender identity [facility] Sexual orientation [facility] History of Social 2022-11-25 2022-11-25 [facility] function 00:00:00 00:00:00 Sex Assigned At [birth year] [facility] 00:00:00 00:00:00 Smoking Status Start Date Stop Date Source Tobacco smoking consumption unknown [facility] Medications This patient has no known medications. Vital Signs Vital Name Observation Time Observation Value Comments Source Systolic blood 2022-11-25 14:54:00 136 mm[Hg] [facility] pressure Diastolic blood 2022-11-25 14:54:00 78 mm[Hg] [facility] pressure Heart rate 2022-11-25 14:54:00 84 /min [facility] Body temperature 2022-11-25 14:54:00 36.61 Evy [facility] Respiratory rate 2022-11-25 14:54:00 17 /min [facility] Oxygen saturation in 2022-11-25 14:54:00 98 /min [facility] Arterial blood by Pulse oximetry Body height 2022-11-25 08:50:00 175.3 cm [facility] Body weight 2022-11-25 08:50:00 97.977 kg [facility] BMI 2022-11-25 08:50:00 31.90 kg/m2 [facility] Procedures Procedure Date / Time Performing Clinician Source Performed ECG ED PRELIMINARY 2022-11-25 11:23:18 Tu, [facility] INTERPRETATION URINE CULTURE 2022-11-25 09:37:00 Tu, [facility] COVID-19 QUALITATIVE 2022-11-25 09:12:00 Tu, [facility] RT-PCR CBC WITH PLATELET AND 2022-11-25 09:12:00 Tu, [facility] DIFFERENTIAL COMPREHENSIVE METABOLIC 2022-11-25 09:12:00 Tu, [facility] PANEL THYROID STIMULATING 2022-11-25 09:12:00 Tu, [facility] HORMONE T4, FREE 2022-11-25 09:12:00 Tu, [facility] ALCOHOL LEVEL, BLOOD 2022-11-25 09:12:00 Tu, [facility] ACETAMINOPHEN LEVEL 2022-11-25 09:12:00 Tu, [facility] SALICYLATE LEVEL 2022-11-25 09:12:00 Tu, [facility] URINE DRUGS OF ABUSE 2022-11-25 09:12:00 Tu, [facility] SCREEN URINALYSIS SCREEN AND 2022-11-25 09:12:00 Kalen Erickson [facility] MICROSCOPY, WITH REFLEX TO CULTURE ESTIMATED GFR 2022-11-25 09:12:00 TuKalen [facility] ECG 12-LEAD 2022-11-25 08:35:34 Kalen Erickson [facility] Encounters Start End Encounter Admission Attending Care Care Encounter Source Date/Time Date/Time Type Type Clinicians Facility Department ID 2021-12-11 Inpatient [facility] [id number] [facility] 15:59:00 21 2021-11-28 Inpatient [facility] [id number] [facility] 18:18:00 50 2021-11-28 Inpatient [facility] [id number] [facility] 18:18:00 50 2022-11-25 2022-11-25 Emergency Tu, Kalen 1.2.840.1 [id number] [facility] 02:49:00 21:05:[address] [facility] [address] 3.430.2.7 Hospit a .3.662451 l .8 2022-11-25 2022-11-25 Emergency Tu, Kalen 1.2.840.1 [id number] [facility] 02:49:00 21:05:[address] [facility] [address] 3.430.2.7 Hospit a .3.563121 l .8 2022-11-25 2022-11-25 Travel 1.2.840.1 [id number] [id number] [facility] 00:00:00 00:00:[address] 3.430.2.7 0.2.7.3.698 Ho spita .3.078940 084.8 l .8 2022-11-25 2022-11-25 Travel 1.2.840.1 1.2.926.759 [id number] [facility] 00:00:00 00:00:[address] 3.430.2.7 0.2.7.3.698 Ho spita .3.320253 084.8 l .8 2022-04-30 2022-04-30 Outpatient AGUILA AMBRIZ [place] [address] 01:18:00 01:18:00 HN 0714 da [facility] Program 2021-12-11 2021-12-11 Emergency [facility] [id number] [facility] 15:59:00 15:59:00 21 Results Test Description Test Time Test Comments Results Result Comments Source ECG 12 lead 2022-11-27 01:20:51 Test Item Value Reference Range Interpretation Comme nts Ventricular rate (test code = 253) 76 Atrial rate (test code = 255) 76 PA interval (test code = 266) 174 QRSD [...] sinus rhy thm-Normal ECG-No previous ECGs available- [place] [address] [id number] 01:20:51 Test Item Value Reference Range Interpretation Comments Ventricular rate (test 76 code = 253) Atrial rate (test code = 76 255) PA interval (test code = 174 266) QRSD [...] available-Electronica lly Signed By Neva Anne MD ([id number]) on 11/26/2022 7:20:49 PM [facility] [id number] 01:20:51 Test Item Value Reference Range Interpretation Comments Ventricular rate (test 76 code = 253) Atrial rate (test code = 76 255) PA interval (test code = 174 266) QRSD [...] available-Electronica lly Signed By Neva Anne MD ([id number]) on 11/26/2022 7:20:[address]2023-02-10 01:20:51 Test Item Value Reference Range Interpretation Comments Ventricular rate (test 76 code = 253) Atrial rate (test code = 76 255) PA interval (test code = 174 266) QRSD [...] available-Electronica lly Signed By Neva Anne MD ([id number]) on 11/26/2022 7:20:[address]2023-02-10 01:20:51 Test Item Value Reference Range Interpretation Comments Ventricular rate (test 76 code = 253) Atrial rate (test code = 76 255) PA interval (test code = 174 266) QRSD [...] available-Electronica lly Signed By Neva Anne MD ([id number]) on 11/26/2022 7:20:49 PM [facility]2023-02-09 18:28:00 Test Item Value Reference Range Interpretation Comments Urine culture Mixed jarod Specimen isolate (test <=10-3 col/cc InformationSp ecimen code = 96992-0) Source: Urin eSpecimen Site: [facility] [id number] 18:28:00 Test Item Value Reference Range Interpretation Comments Urine culture Mixed jarod Specimen isolate (test <=10-3 col/cc InformationSp ecimen code = 52018-5) Source: [place] Site: [facility] [id number] 18:28:00 Test Item Value Reference Range Interpretation Comments Urine culture Mixed jarod Specimen isolate (test <=10-3 col/cc InformationSp ecimen code = 64510-8) Source: [place] Site: [facility] [id number] 18:28:00 Test Item Value Reference Range Interpretation Comments Urine culture Mixed jarod Specimen isolate (test <=10-3 col/cc InformationSp ecimen code = 51850-4) Source: [place] Site: [facility] [id number] 18:28:00 Test Item Value Reference Range Interpretation Comments Urine culture Mixed jarod Specimen isolate (test <=10-3 col/cc InformationSp ecimen code = 61452-6) Source: [place] [facility] [Presence] in Respiratory specimen by LENKA with probe [id number] 04:11:08 Test Item Value Reference Range Interpretation Comments SARS-CoV-2 (COVID-19) RNA Not detected [Presence] in Respiratory specimen by LENKA with probe detection (test code = 17618-4) Whether patient is employed in a Unknown healthcare setting (test code = 07723-1) Whether the patient has symptoms Unknown related to condition of interest (test code = 81037-2) Whether the patient was Unknown hospitalized for condition of interest (test code = 92692-0) Whether the patient was admitted Unknown to intensive care unit (ICU) for condition of interest (test code = 08897-1) Whether patient resides in a Unknown congregate care setting (test code = 85397-1) status (test code = Unknown 28636-2) Date and time of symptom onset Unknown (test code = 18992-7) KAMERON TERRAZAS Urinalysis Rflx Cult/[id number] 17:00:00 Test Item Value Reference Range Interpretation Comments Color,Urine (test code = UCOL) Yellow Yellow Clarity,Urine (test code = Clear Clear UCLAR) Ph, Urine (test code = UPH) 7.5 5.0-9.0 N Specific [place],Urine (test 1.015 1.005-1.030 N code = USG) [...] Negative mg/dL Negative code = ULEU) Drug Screen,[id number] 17:00:00 Test Item Value Reference Range Interpretation [...] code = UPROP) Complete Blood Count Auto [id number] 16:55:00 Test Item Value Reference Range Interpretation [...] code = NRBCP) 0 % Comprehensive Metabolic [id number] 16:55:00 Test Item Value Reference Range Interpretation [...] 67 U/L 46-116 N = ALP) Ethanol [id number] 16:55:00 Test Item Value Reference Range Interpretation Comments Ethanol (test code < 3 mg/dL The pharm acological = ETOH) response to blo od alcohol levels mayvary from individual to i ndividual. The fatal umair ntrationhas been reported t o be >400mg/dL. Sars-CoV-2/FLU A/B RSV [id number] 16:55:00 Test Item Value Reference Range Interpretation [...] SARS-CoV-2 PCR Result:) Complete Blood Count Auto [id number] 19:00:00 Test Item Value Reference Range Interpretation [...] (test code = NRBCP) 0 % Drug Screen,[id number] 19:00:00 Test Item Value Reference Range Interpretation [...] Negative Negative code = UPROP) UA, Urinalysis [id number] 19:00:00 Test Item Value Reference Range Interpretation Comments Color,Urine (test code = Yellow Yellow UCOL) Clarity,Urine (test code = Clear Clear UCLAR) PH,Urine (test code = 6.5 5.5-8.5 UPH.XX) Specific [place],Urine 1.015 1.005-1.030 N (test code = USG) [...] (test code = ULEU) Sars-CoV-2/FLU A/B RSV [id number] 19:00:00 Test Item Value Reference Range Interpretation [...] code = SARS-CoV-2 PCR Result:) Comprehensive Metabolic [id number] 19:00:00 Test Item Value Reference Range Interpretation [...] Osmolality,Calculated (test code 291.8 = OSMOC) Ethanol [id number] 19:00:00 Test Item Value Reference Range Interpretation Comments Ethanol (test code < 3 mg/dL The pharm acological = ETOH) response to blo od alcohol levels mayvary from individual to i ndividual. The fatal umair ntrationhas been reported t o be >400mg/dL. Notes Date/Time Note Provider Source 2021-12-11 16:54:00-00:00 [facility] [address] [place] [address] Emergency Department Document Signed Patient: Chi Kelley Medical Record#: [id number] : 1970 Acct:[id number] Age/Sex: 51 / M Admit/Reg Date: 12/11/21 Loc: [facility] Room: Report Number: [id number]: Honorio Castañeda DO <Christiana Davis [...] he feels paranoid, patient also reports seeing [facility] to get him. Patient states was [...] Medical Decision Making Narrative: DDX: Depression, anxiety, s chizophrenia, bipolar, substance abuse, intoxication Abnormal Lab Results 12/11/21 12/11/21 16:55 16:55 WBC 10.8 H RBC 4.79 Hgb 14.9 Hct 44.9 MCV 93.70 MCH 31.1 MCHC 33.20 RDW Coeff of Claribel 11.9 Plt Count 236.0 MPV 11.4 Immature Gran % (Auto) 0.3 Neut % (Auto) 64.0 Lymph % (Auto) 27.8 [place] % (Auto) 6.3 Eos % (Auto) 1.0 Baso % (Auto) 0.6 Neut # (Auto) 6.9 Lymph # (Auto) 3.00 [place] # (Auto) 0.68 Eos # (Auto) 0.11 [...] patient was provided discount prescription cards at [facility], patient given resources for outpatient psychiatry. Patient [...] % (Auto) 64.0, Lymph % (Auto) 27.8, [place] % (Auto) 6 .3, Eos % (Auto) 1.0, Baso % (Auto) 0.6, Neut # (Auto) 6.9, Lymph # (Auto) 3.00, [place] # (Auto) 0 .68, Eos # (Auto) [...] Clarity Clear, Urine pH 7.5, Ur Specific [place] 1.015, Urine Protein Negative, Urin e Glucose [...] by Pulse Oximetry 99 12/11/21 18:39 - [facility] Medical Decision Making Narrative: 12/11/21 16:54 51-year-old [...] Center [Other] [facility] [Other] [facility] [Other] Pcp-Md Land MD [Primary Care Provider] - Print Language: Montserratian - Discharge Data Time Seen by Provider: 12/11/21 16:00 - Depart Patient Account Discharge Date/Time: 12/11/21 18:39 Dictated By: Honorio Castañeda DO Signed By: Honorio Castañeda DO 12/13/21 1430 Christiana Davis NP 12/11/21 1810 DD/ 1654 TD/TT: 12/11/21 1654 Routeman: DENISSE cc: MICHAEL* Pcp-Md DESIREE Land
[2023-06-01] MEDS ORDERED: NA CHLORIDE 0.9% 1,000 ML ONE (15:41)
[2023-06-01] MEDS ORDERED: ONDANSETRON 4 MG/2 ML VIAL ONE (15:41)
[2023-06-01] MEDS ORDERED: KETOROLAC 30 MG/ML INJ ONE (15:41)
[2023-06-01 15:57] LABS: Absolute Lymphocytes (CBC) 2.9 K/uL (0.7-4.9); Hematocrit 39.2 % (39.6-49.0); Lymphocytes % 26.2 % (15.3-44.8); MCV 90.7 fL (80-100); MPV 9.3 fL (7.6-11.3); Platelets 247 thou/uL (152-406); RBC Red Blood Cell Count 4.32 M/uL (4.33-5.43)
[2023-06-01 16:23] LABS: Albumin 3.8 g/dL (3.4-5.0); Bilirubin Total 0.3 mg/dL (0.2-1.0); Protein, Total 7.5 g/dL (6.4-8.2)
[2023-06-01 16:24] LABS: Potassium 2.9 mEq/L (3.5-5.1)
--- NOTE | 2023-06-01 17:12 | RAD REPORT ---
EXAM DESCRIPTION: CT - Abdomen Pelvis W Contrast - 06/01/2023 4:41 pm CLINICAL HISTORY: ABD PAIN COMPARISON: Abdomen Pelvis W Contrast dated 02/26/2022; Abdomen Pelvis W Contrast dated 12/20/2021; Abdomen Pelvis W Contrast dated 06/24/2020; Abdomen Pelvis W Contrast dated 12/16/2018 TECHNIQUE: Thin cut axial CT imaging of the abdomen and pelvis was performed following intravenous a dministration of 100 mL Isovue 300. Multiplanar reformats were generated and reviewed. All CT scans are performed using dose optimization technique as appropriate and may include automated exposure control or mA/KV adjustment according to patient size. FINDINGS: No suspicious findings in the lung bases. The liver shows diffuse parenchymal hypoattenuation, suggesting steatosis. Adrenal glands, spleen, an d pancreas show no suspicious findings. Gallbladder was surgically removed. No intra or extrahepatic biliary ductal dilation. No focal suspicious renal mass. Mild right hydroureteronephrosis. A 3 millimeter calculus is seen sandra r the right ureteral orifice, may be at the vesicoureteral junction or recently passed. Mild right re nal enlargement, with perinephric fat stranding, and diffuse cortical hypoenhancement compared to the left kidney. Bilateral nonobstructing renal calculi, largest measuring 5 millimeter. No dilated bowel loops or bowel wall thickening. No free air, free fluid or inflammatory stranding. N o hernia, mass or bulky lymphadenopathy. The urinary bladder is suboptimally distended limiting evalu ation. No suspicious bony findings. IMPRESSION: Right mild hydroureteronephrosis. A 3 millimeter calculus is seen near the right uretera l orifice, may be at the vesicoureteral junction or recently passed. Asymmetric hypoenhancement of the right kidney with mild perinephric fluid. This could relate to the acute obstruction, however superimposed infection would be difficult to exclude. Please correlate cli nically and with urinalysis results. Other bilateral small nonobstructing renal calculi. Diffuse hepatic steatosis. The findings were communicated to Yassine Jauregui on 06/01/2023 at 17:09 hours.
[2023-06-01] MEDS ORDERED: POTASSIUM 25 MEQ EFFERV TAB ONE (17:38)
[2023-06-01 18:18] LABS: Calcium Oxalate Crystals- Ur Few /HPF (None Seen); Specific Gravity > 1.030 (1.005-1.030); Urine Bacteria None Seen /HPF (<20); Urine Bilirubin NEGATIVE (Negative); Urine Blood 2+ (Negative); Urine Clarity Turbid (Clear); Urine Color Yellow (Yellow); Urine Glucose NEGATIVE (Negative); Urine Mucus 4+ /HPF (None Seen); Urine Protein 1+ (Negative); Urine RBC 21-50 /HPF (None Seen); Urine Urobilinogen Normal (Normal)
--- NOTE | 2023-06-01 18:25 | EDPHYS ---
Physician Documentation [facility] Name: Chi Kelley Age: 53 yrs Sex: Male : 1970 Arrival Date: 06/01/2023 Time: 14:28 Bed 7 Private MD: ED Physician Donavon Aguilar HPI: 06/01 15:06 This 53 yrs old Male presents to ER via Ambulatory with complaints of Urinary ms3 Incontinence, Abdominal Pain. 15:06 53-year-old male with past medical history of anxiety, chronic back pain, COPD, ms3 depression, thyroid disease presents for lower abdominal pain, urinary retention that began yesterday morning. Patient rates his discomfort a 10/10 and denies alleviating or inciting factors. He states he took Advil 3 hours prior to arrival. Patient denies nausea, fevers. Patient endorses diarrhea and chills.. Historical: - Allergies: 14:45 No Known Allergies; ap3 - PMHx: 14:45 Anxiety; chronic back pain; Chronic obstructive lung disease; COPD; depressive ap3 disorder; Glaucoma; Hypothyroidism; Pre-Diabetes; - PSHx: 14:45 Cholecystectomy; ap3 - Immunization history:: Adult Immunizations unknown. - Social history:: Smoking status: Patient reports the use of cigarette tobacco products, smokes one-half pack cigarettes per day. ROS: 15:06 Neck: Negative for injury, pain, and swelling, Cardiovascular: Negative for chest pain, ms3 and palpitations. Respiratory: Negative for shortness of breath, cough, wheezing, and pleuritic chest pain. 15:06 MS/Extremity: Negative for injury and deformity, Skin: Negative for injury, rash, and discoloration. 15:06 Constitutional: Positive for chills. 15:06 Abdomen/GI: Positive for abdominal pain, nausea, diarrhea, Negative for vomiting. 15:06 All other systems are negative. Exam: 15:06 Constitutional: This is a well developed, well nourished patient who is awake, alert, ms3 and in no acute distress. Head/Face: Normocephalic, atraumatic. Neck: Trachea midline, no cervical lymphadenopathy. Supple, full range of motion without nuchal rigidity, or vertebral point tenderness. No Meningismus. Chest/axilla: Normal chest wall appearance and motion. Nontender with no deformity. Cardiovascular: Regular rate and rhythm with a normal S1 and S2. No gallops, murmurs, or rubs. Normal PMI, no JVD. No pulse deficits. Respiratory: Lungs have equal breath sounds bilaterally, clear to auscultation and percussion. No rales, rhonchi or wheezes noted. No increased work of breathing, no retractions or nasal flaring. 15:06 Abdomen/GI: Inspection: abdomen appears normal, Bowel sounds: normal, Palpation: moderate abdominal tenderness, in the right lower quadrant and left lower quadrant. Vital Signs: 14:44 BP 126 / 88; Pulse 81; Resp 17; Temp 98.4; Pulse Ox 100% ; Pain 10/10; ap3 15:48 BP 120 / 81; Pulse 70; Resp 17; Pulse Ox 99% on R/A; Pain 7/10; me1 18:27 BP 143 / 88; Pulse 62; Resp 16; Pulse Ox 100% on R/A; me1 14:44 Pain Scale: Adult ap3 15:48 Pain Scale: Adult me1 MDM: 14:49 Patient medically screened. ms3 15:06 Differential diagnosis: appendicitis, bowel obstruction, non-specific abd pain, urinary ms3 tract infection, Urinary retention. 18:27 Data reviewed: vital signs, nurses notes, lab test result(s), radiologic studies, CT ms3 scan, and as a result, I will discharge patient. I considered the following discharge prescriptions or medication management in the emergency department Medications were administered in the Emergency Department. See MAR. Independent interpretation of the following test(s) in the Emergency Department CT Scan: My interpretation is CT scan reviewed by me showed right ureteral stone. Care significantly affected by the following chronic conditions: Chronic Obstructive Pulmonary Disease. Counseling: I had a detailed discussion with the patient and/or guardian regarding: the historical points, exam findings, and any diagnostic results supporting the discharge/admit diagnosis, lab results, radiology results, the need for outpatient follow up, to return to the emergency department if symptoms worsen or persist or if there are any questions or concerns that arise at home. Response to treatment: the patient's symptoms have markedly improved after treatment, and as a result, I will discharge patient. Special discussion: I discussed with the patient/guardian in detail that at this point there is no indication for admission to the hospital. It is understood, however, that if the symptoms persist or worsen the patient needs to return immediately for re-evaluation. ED course: Patient symptoms improved, patient is alert and orient x4, no apparent distress, nontoxic-appearing, ambulatory in emergency department. Patient to follow-up with Dr. Robles in 2 to 3 days. Patient understands agrees with plan. All questions were answered. Return precautions discussed include worsening symptoms, or any other concerns.. 06/01 15:19 Order name: CBC with Diff; Complete Time: 16:40 ms3 06/01 15:19 Order name: CMP; Complete Time: 16:40 ms3 06/01 15:19 Order name: Lipase; Complete Time: 16:40 ms3 06/01 15:19 Order name: Urinalysis w/ reflexes; Complete Time: 18:19 ms3 06/01 15:19 Order name: CT Abd/Pelvis - IV Contrast Only; Complete Time: 17:22 ms3 06/01 15:19 Order name: IV Saline Lock; Complete Time: 15:47 ms3 06/01 15:19 Order name: Labs collected and sent; Complete Time: 15:47 ms3 06/01 15:19 Order name: Bladder Scanner ms3 Administered Medications: 15:48 Drug: NS 0.9% IV 1000 ml Route: IV; Rate: 1 bolus; Site: right antecubital; me1 18:00 Follow up: IV Status: Completed infusion; IV Intake: 1000ml me1 15:48 Drug: TORadol - Ketorolac IVP 15 mg Route: IVP; Site: right antecubital; me1 18:30 Follow up: Response: No adverse reaction; Pain is decreased me1 15:48 Drug: Ondansetron IVP 4 mg Route: IVP; Site: right antecubital; me1 16:48 Follow up: Response: No adverse reaction; Nausea is decreased me1 17:30 Drug: Potassium PO Effervescent Tablet 50 mEq Route: PO; me1 18:28 Follow up: Response: No adverse reaction me1 Disposition Summary: 06/01/23 18:25 Discharge Ordered Location: Home ms3 Condition: Stable ms3 Diagnosis - Right kidney stone ms3 - Other hydronephrosis ms3 - Anemia, unspecified ms3 - Hypokalemia ms3 Followup: ms3 - With: Victorino Robles MD - When: 2 - 3 days - Reason: Recheck today's complaints Discharge Instructions: - Discharge Summary Sheet ms3 - Anemia ms3 - Potassium Content of Foods ms3 - Kidney Stones, [place]-ef-Vanh ms3 Forms: - Medication Reconciliation Form ms3 - Thank You Letter ms3 - Antibiotic Education ms3 - Prescription Opioid Use ms3 - Patient Portal Instructions ms3 - Leadership Thank You Letter ms3 Prescriptions: - Flomax 0.4 mg Oral capsule - take 1 capsule by ORAL route every 24 hours; 20 capsule; Refills: 0, Product ms3 Selection Permitted - Ibuprofen 600 mg Oral Tablet - take 1 tablet by ORAL route every 6 hours As needed take with food; 30 tablet; ms3 Refills: 0, Product Selection Permitted Signatures: Dispatcher [employer] Linda Perry, RN RN ap3 Donavon Aguilar DO DO ms3 Susanna Rogers RN RN me1
--- NOTE | 2023-06-01 18:25 | ER ---
Nurse's Notes [facility] Name: Chi Kelley Age: 53 yrs Sex: Male : 1970 Arrival Date: 06/01/2023 Time: 14:28 Bed 7 Private MD: Diagnosis: Right kidney stone;Other hydronephrosis;Anemia, unspecified;Hypokalemia Presentation: 06/01 14:44 Chief complaint: Patient states: he hasn't been able to urinate or have a BM, and is ap3 having lower abdominal pain. patient states these symptoms began yesterday 05/31/23. Coronavirus screen: At this time, the client does not indicate any symptoms associated with coronavirus-19. Ebola Screen: No symptoms or risks identified at this time. Initial Sepsis Screen: Does the patient meet any 2 criteria? No. Patient's initial sepsis screen is negative. Does the patient have a suspected source of infection? No. Patient's initial sepsis screen is negative. Risk Assessment: Do you want to hurt yourself or someone else? Patient reports no desire to harm self or others. Onset of symptoms was May 31, 2023. 14:44 Method Of Arrival: Ambulatory ap3 14:44 Acuity: DORIAN 3 ap3 Triage Assessment: 14:46 General: Appears unkempt, Behavior is calm, cooperative. Pain: Complains of pain in ap3 abdomen Pain began 1 day ago. Neuro: Level of Consciousness is awake, alert, obeys commands, Oriented to person, place, time, situation. Cardiovascular: Patient's skin is warm and dry. Respiratory: Airway is patent Respiratory effort is even, unlabored, Respiratory pattern is regular, symmetrical. GI: Reports lower abdominal pain, constipation. : Reports inability to void. Historical: - Allergies: 14:45 No Known Allergies; ap3 - PMHx: 14:45 Anxiety; chronic back pain; Chronic obstructive lung disease; COPD; depressive ap3 disorder; Glaucoma; Hypothyroidism; Pre-Diabetes; - PSHx: 14:45 Cholecystectomy; ap3 - Immunization history:: Adult Immunizations unknown. - Social history:: Smoking status: Patient reports the use of cigarette tobacco products, smokes one-half pack cigarettes per day. Screenin:46 Abuse screen: Denies threats or abuse. Nutritional screening: No deficits noted. ap3 Tuberculosis screening: No symptoms or risk factors identified. 15:10 [facility] ED Fall Risk Assessment (Adult) Score/Fall Risk Level 0 - 2 = Low Risk. me1 Assessment: 15:10 General: Appears uncomfortable, Behavior is calm, cooperative, appropriate for age, me1 Reports feeling ill for fatigue for RLQ and R flank pain. States he hasn't voided since last night. Denies suprapubic pain. Pain: Complains of pain in abdomen and right lower quadrant Pain radiates to right flank Pain currently is 7 out of 10 on a pain scale. Quality of pain is described as shooting, Pain began Is continuous. Neuro: Level of Consciousness is awake, alert, obeys commands, Oriented to person, place, time, situation, Appropriate for age. Cardiovascular: Capillary refill < 3 seconds Patient's skin is warm and dry. Respiratory: Airway is patent Respiratory effort is even, unlabored, Respiratory pattern is regular, symmetrical. GI: Bowel sounds present X 4 quads. Abd is soft and non tender X 4 quads. : Reports inability to void, since last night. Vital Signs: 14:44 BP 126 / 88; Pulse 81; Resp 17; Temp 98.4; Pulse Ox 100% ; Pain 10/10; ap3 15:48 BP 120 / 81; Pulse 70; Resp 17; Pulse Ox 99% on R/A; Pain 7/10; me1 18:27 BP 143 / 88; Pulse 62; Resp 16; Pulse Ox 100% on R/A; me1 14:44 Pain Scale: Adult ap3 15:48 Pain Scale: Adult ut1 ED Course: 14:30 Patient arrived in ED. kj1 14:30 Donavon Aguilar DO is Attending Physician. ms3 14:45 Triage completed. ap3 14:47 Arm band placed on left wrist. ap3 15:02 Susanna Rogers, MELINA is Primary Nurse. me1 15:10 Allergy band placed. Bed in low position. Call light in reach. Provided Education on: me1 POC. Verbalized understanding. . 15:10 No provider procedures requiring assistance completed. me1 15:47 Inserted saline lock: 22 gauge in right antecubital area, using aseptic technique. me1 15:47 CBC with Diff Sent. me1 15:48 CMP Sent. me1 15:48 Lipase Sent. me1 16:43 CT Abd/Pelvis - IV Contrast Only In Process Unspecified. EDMS 18:24 Victorino Robles MD is Referral Physician. ms3 18:30 IV discontinued, intact, bleeding controlled, No redness/swelling at site. Pressure me1 dressing applied. Administered Medications: 15:48 Drug: NS 0.9% IV 1000 ml Route: IV; Rate: 1 bolus; Site: right antecubital; me1 18:00 Follow up: IV Status: Completed infusion; IV Intake: 1000ml me1 15:48 Drug: TORadol - Ketorolac IVP 15 mg Route: IVP; Site: right antecubital; me1 18:30 Follow up: Response: No adverse reaction; Pain is decreased me1 15:48 Drug: Ondansetron IVP 4 mg Route: IVP; Site: right antecubital; me1 16:48 Follow up: Response: No adverse reaction; Nausea is decreased me1 17:30 Drug: Potassium PO Effervescent Tablet 50 mEq Route: PO; me1 18:28 Follow up: Response: No adverse reaction me1 Medication: 15:10 VIS not applicable for this client. me1 Intake: 18:00 IV: 1000ml; Total: 1000ml. me1 Outcome: 18:25 Discharge ordered by MD. ms3 18:30 Discharged to home ambulatory, with significant other. me1 18:30 Condition: stable 18:30 Discharge instructions given to patient, significant other, Instructed on discharge instructions, follow up and referral plans. medication usage, Demonstrated understanding of instructions, follow-up care, medications, Prescriptions given X 2. 18:41 Patient left the ED. me1 Signatures: Dispatcher [employer] EDLinda Collazo, RN RN mark3 Maggie Hackett1 Donavon Aguilar DO DO ms3 Susanna Rogers RN RN me1
[2023-06-01 19:29] VITALS: TEMP 98.4
[2023-06-01 19:32] VITALS: BP 143/88; O2SAT 100
== END 2023-06-01 18:41 | disposition home or self-care (01) ==
LOC: ER 14:28
DX: N20.0 Calculus of kidney (principal); N13.39 Other hydronephrosis; D64.9 Anemia, unspecified; E87.6 Hypokalemia; F17.210 Nicotine dependence, cigarettes, uncomplicated
CPT/HCPCS: 85025; 81001; 36415; 83690; 80053; 74177; Q9967; J2405; J7030; 96361; 96374; 96375; 99284

== ENCOUNTER 2023-09-19 17:00 | Emergency (ER) | payer OTHER ==
--- OUTSIDE RECORDS SUMMARY | 2023-09-19 17:04 | XMS REPORT | Continuity of Care Document ---
:1970 Author Organization [facility] t Address [address] [place] [address] Care Team Providers Name Role Phone Asked, [...] Date Clinician No Known DA [facility] 2[facility]24 Allergie 00:00: s 00 No Known DA Active U 0 [facility] Drug 2-11 Allergie 00:00: s 00 Social History Social Habit Start Date Stop Date Quantity Comments Source Gender identity [facility] Sexual orientation [facility] History of Social 2022-11-25 2022-11-25 [facility] function 00:00:00 00:00:00 Sex Assigned At [address] [facility] 00:00:00 00:00:00 Smoking Status Start Date Stop Date Source Tobacco smoking consumption unknown [facility] Medications This patient has no known medications. Vital Signs Vital Name Observation Time Observation Value Comments Source Systolic blood 2022-11-25 14:54:00 136 mm[Hg] [facility] pressure Diastolic blood 2022-11-25 14:54:00 78 mm[Hg] [facility] pressure Heart rate 2022-11-25 14:54:00 84 /min [facility] Body temperature 2022-11-25 14:54:[address] [facility] Respiratory rate 2022-11-25 14:54:00 17 /min [facility] Oxygen saturation in 2022-11-25 14:54:00 98 /min [facility] Arterial blood by Pulse oximetry Body height 2022-11-25 08:50:00 175.3 cm [facility] Body weight 2022-11-25 08:50:00 97.977 kg [facility] BMI 2022-11-25 08:50:00 31.90 kg/m2 [facility] Procedures Procedure Date / Time Performing Clinician Source Performed ECG ED PRELIMINARY 2022-11-25 11:23:18 Tu, [facility] INTERPRETATION URINE CULTURE 2022-11-25 09:37:00 Tu, [facility] ESTIMATED GFR 2022-11-25 09:12:00 Tu, [facility] COVID-19 QUALITATIVE 2022-11-25 09:12:00 Tu, [facility] RT-PCR CBC WITH PLATELET AND 2022-11-25 09:12:00 Tu, [facility] DIFFERENTIAL COMPREHENSIVE METABOLIC 2022-11-25 09:12:00 Tu, [facility] PANEL THYROID STIMULATING 2022-11-25 09:12:00 Tu, [facility] HORMONE T4, FREE 2022-11-25 09:12:00 Tu, [facility] ALCOHOL LEVEL, BLOOD 2022-11-25 09:12:00 Tu, [facility] ACETAMINOPHEN LEVEL 2022-11-25 09:12:00 Tu, [facility] SALICYLATE LEVEL 2022-11-25 09:12:00 Tu, [facility] URINE DRUGS OF ABUSE 2022-11-25 09:12:00 Tu, [facility] SCREEN URINALYSIS SCREEN AND 2022-11-25 09:12:00 [facility] MICROSCOPY, WITH REFLEX TO CULTURE ECG 12-LEAD 2022-11-25 08:35:34 Kalenian [facility] Encounters Start End Encounter Admission Attending Care Care Encounter Source Date/Time Date/Time Type Type Clinicians Facility Department ID 2021-12-11 Inpatient [facility] [id number] [facility] 15:59:00 21 2021-11-28 Inpatient [facility] [id number] [facility] 18:18:00 50 2021-11-28 Inpatient [facility] [id number] [facility] 18:18:00 50 2022-11-25 2022-11-25 Emergency , Kalen 1.2.840.1 [id number] [facility] 02:49:00 21:05:[address] 3[facility]430.2.7 Hospit a .3.370492 l .8 2022-11-25 2022-11-25 Emergency Tu, Kalen 1.2.840.1 [id number] 2 [id number] [facility] 02:49:00 21:05:[address] 3.430.2.7 Hospit a .3.078702 l .8 2022-11-25 2022-11-25 Travel 1.2.840.1 1.2.648.067 [id number] [facility] 00:00:00 00:00:[address] 3.430.2.7 0.2.7.3.698 Ho spita .3.184755 084.8 l .8 2022-11-25 2022-11-25 Travel 1.2.840.1 1.2.586.802 [id number] [facility] 00:00:00 00:00:[address] 3.430.2.7 0.2.7.3.698 Ho spita .3.929289 084.8 l .8 2022-04-30 2022-04-30 Outpatient AGUILA AMBRIZ VTCHAPITO [address] 01:18:00 01:18:00 HN 0714 da [facility] 2021-12-11 2021-12-11 Emergency [facility] [id number] [facility] 15:59:00 15:59:00 21 Results Test Description Test Time Test Comments Results Result Comments Source ECG 12 lead 2022-11-27 01:20:51 Test Item Value Reference Range Interpretation Comme nts Ventricular rate (test code = 253) 76 Atrial rate (test code = 255) 76 ME interval (test code = 266) 174 QRSD [...] sinus rhy thm-Normal ECG-No previous ECGs available- [place] [address] [id number] 01:20:51 Test Item Value Reference Range Interpretation Comments Ventricular rate (test 76 code = 253) Atrial rate (test code = 76 255) ME interval (test code = 174 266) QRSD [...] available-Electronica lly Signed By Neva Anne MD ([id number]) on 11/26/2022 7:20:49 [facility] [id number] 01:20:51 Test Item Value Reference Range Interpretation Comments Ventricular rate (test 76 code = 253) Atrial rate (test code = 76 255) ME interval (test code = 174 266) QRSD [...] available-Electronica lly Signed By Neva Anne MD ([id number]) on 11/26/2022 7:20:[address]2023-02-10 01:20:51 Test Item Value Reference Range Interpretation Comments Ventricular rate (test 76 code = 253) Atrial rate (test code = 76 255) ME interval (test code = 174 266) QRSD [...] available-Electronica lly Signed By Neva Anne MD ([id number]) on 11/26/2022 7:20:[address]2023-02-10 01:20:51 Test Item Value Reference Range Interpretation Comments Ventricular rate (test 76 code = 253) Atrial rate (test code = 76 255) ME interval (test code = 174 266) QRSD [...] available-Electronica lly Signed By Neva Anne MD ([id number]) on 11/26/2022 7:20:[address]2023-02-10 01:20:51 Test Item Value Reference Range Interpretation Comments Ventricular rate (test 76 code = 253) Atrial rate (test code = 76 255) ME interval (test code = 174 266) QRSD [...] available-Electronica lly Signed By Neva Anne MD ([id number]) on 11/26/2022 7:20:49 PM [facility]2023-02-09 18:28:00 Test Item Value Reference Range Interpretation Comments Urine culture Mixed jarod Specimen isolate (test <=10-3 col/cc InformationSp ecimen code = 09261-2) Source: [facility] Site: [facility]2023-02-09 18:28:00 Test Item Value Reference Range Interpretation Comments Urine culture Mixed jarod Specimen isolate (test <=10-3 col/cc InformationSp ecimen code = 01737-2) Source: [facility] Site: [facility]2023-02-09 18:28:00 Test Item Value Reference Range Interpretation Comments Urine culture Mixed jarod Specimen isolate (test <=10-3 col/cc InformationSp ecimen code = 33087-6) Source: [facility] Site: [facility]2023-02-09 18:28:00 Test Item Value Reference Range Interpretation Comments Urine culture Mixed jarod Specimen isolate (test <=10-3 col/cc InformationSp ecimen code = 75688-3) Source: [facility] Site: [facility]2023-02-09 18:28:00 Test Item Value Reference Range Interpretation Comments Urine culture Mixed jarod Specimen isolate (test <=10-3 col/cc InformationSp ecimen code = 72737-5) Source: [facility] Site: [facility]2023-02-09 18:28:00 Test Item Value Reference Range Interpretation Comments Urine culture Mixed jarod Specimen isolate (test <=10-3 col/cc InformationSp ecimen code = 63422-9) Source: [facility] Site: [facility] ED Preliminary Interpretation - Not an [id number] 11:23:18Kalen Erickson MD 11/26/2022 9:28 [facility] ED Preliminary Interpretation - Not an OrderPerformed by: Kalen Erickson MDAuthorized by: Kalen Erickson MD ECG reviewed by ED Physician in the absence of a finger waver: yes Previous ECG: Previous ECG: UnavailableInterpretation: Interpretation: normal Rate: ECG rate: 76 ECG rate assessment: normal Rhythm: Rhythm: sinus rhythm Ectopy: Ectopy:none QRS: QRS axis: Normal QRS intervals: NormalConduction: Conduction: normal ST segments: ST segments: NormalT waves: T waves: normal Comments: The personnel monitor revealed normal sinus rhythm as inte rpreted by me.The personnel monitor was ordered secondary to the patient's history of cardiac issues and the monitor the patient for qxoqgmvmjdjGVTE-StV-9 (COVID- 19) RNA [Presence] in Respiratory specimen by LENKA with probe [id number] 04:11:08 Test Item Value Reference Range Interpretation Comments SARS-CoV-2 (COVID-19) RNA Not detected [Presence] in Respiratory specimen by LENKA with probe detection (test code = 37170-9) Whether patient is employed in a Unknown healthcare setting (test code = 77438-4) Whether the patient has symptoms Unknown related to condition of interest (test code = 15334-0) Whether the patient was Unknown hospitalized for condition of interest (test code = 54401-9) Whether the patient was admitted Unknown to intensive care unit (ICU) for condition of interest (test code = 05167-3) Whether patient resides in a Unknown congregate care setting (test code = 02694-5) status (test code = Unknown 44586-5) Date and time of symptom onset Unknown (test code = 76860-8) KAMERON TERRAZAS, Urinalysis Rflx Cult/[id number] 17:00:00 Test Item Value Reference Range Interpretation Comments Color,Urine (test code = UCOL) Yellow Yellow Clarity,Urine (test code = Clear Clear UCLAR) Ph, Urine (test code = UPH) 7.5 5.0-9.0 N Specific [place],Urine (test 1.015 1.005-1.030 N code = USG) [...] Negative mg/dL Negative code = ULEU) Drug Screen,[id number] 17:00:00 Test Item Value Reference Range Interpretation [...] code = UPROP) Complete Blood Count Auto [id number] 16:55:00 Test Item Value Reference Range Interpretation [...] code = NRBCP) 0 % Comprehensive Metabolic [id number] 16:55:00 Test Item Value Reference Range Interpretation [...] 67 U/L 46-116 N = ALP) Ethanol [id number] 16:55:00 Test Item Value Reference Range Interpretation Comments Ethanol (test code < 3 mg/dL The pharm acological = ETOH) response to blo od alcohol levels mayvary from individual to i ndividual. The fatal umair ntrationhas been reported t o be >400mg/dL. Sars-CoV-2/FLU A/B RSV [id number] 16:55:00 Test Item Value Reference Range Interpretation [...] SARS-CoV-2 PCR Result:) Complete Blood Count Auto [id number] 19:00:00 Test Item Value Reference Range Interpretation [...] (test code = NRBCP) 0 % Drug Screen,[id number] 19:00:00 Test Item Value Reference Range Interpretation [...] Negative Negative code = UPROP) UA, Urinalysis [id number] 19:00:00 Test Item Value Reference Range Interpretation Comments Color,Urine (test code = Yellow Yellow UCOL) Clarity,Urine (test code = Clear Clear UCLAR) PH,Urine (test code = 6.5 5.5-8.5 UPH.XX) Specific [place],Urine 1.015 1.005-1.030 N (test code = USG) [...] (test code = ULEU) Sars-CoV-2/FLU A/B RSV [id number] 19:00:00 Test Item Value Reference Range Interpretation [...] code = SARS-CoV-2 PCR Result:) Comprehensive Metabolic [id number] 19:00:00 Test Item Value Reference Range Interpretation [...] Osmolality,Calculated (test code 291.8 = OSMOC) Ethanol [id number] 19:00:00 Test Item Value Reference Range Interpretation Comments Ethanol (test code < 3 mg/dL The pharm acological = ETOH) response to blo od alcohol levels mayvary from individual to i ndividual. The fatal umair ntrationhas been reported t o be >400mg/dL. Notes Date/Time Note Provider Source 2021-12-11 16:54:00 4227-30-05H89:54:00 [facility] [address] [place] [address] Emergency Department Document Signed Patient: Chi Kelley Medical Record#: [id number] : 1970 Acct:[id number] Age/Sex: 51 / M Admit/Reg Date: 12/11/21 Loc: [facility] Room: Report Number: [id number]: Honorio Castañeda DO <Christiana Davis - Last Filed: 12/11/21 18:08> Psych HPI - General Chief Complaint: Psychiatric Symptoms Stated Complaint: Hearing Voices Nursing note reviewed: Yes Source: patien t Mode of arrival: ambulatory Limitations: no limitations Primary Care Provider: Pcp-None,Md - History of Present Illness HPI Narrative: 51-year-old male history of anxiety, depression, GERD presents the ED complaining of auditory visualhallucinations, patient states he feels like someone is trying to kill him. Patient states he hearsvoices, states he feels like his landlord others are trying to kill him he feels paranoid, patient also reports seeing angels trying to get him. Patient states was discharged from hospital yesterday, but has been unable to afford the medications he was prescribed until the 1st of the month. Patient denies SI HI. Patient denies chest pain, shortness of breath, dizziness, headache, weakness, numbness, nausea/vomiting, abdominal pain, cough/congestion, fever syncope. Patient is aler t oriented x3, answering questions appropriately, appears in no distress at this time, ambulateswith an even steady gait. GCS 15 Vital signs stable - Related Data Previous Rx's Medication Instructions Recorded olanzapine 10 m g tablet 10 mg PO QHS tab 12/10/21 sertraline 50 m g tablet 50 mg PO DAILY tab 12/10/21 trazodone 100 mg tablet 100 mg PO QHS PRN tab 12/10/21 Allergies Allergy/AdvReac Type Severity Reaction Status Date / Time No Known Drug Allergies Allergy Verified 12/11/21 16:32 Review of System s ROS: As reviewed in the HPI. All other systems reviewed are negative or normal. Family/Social History - Social History Smoking Status: Current some day smoker Smoked/Used Tobacco in the Last 30 Days?: No Current or Hx of Recreational Drug use: No Physical Exam Physical Exam: CONSTITUTIONAL: Well appearing in no acute distress SKIN: Warm, dry, and intact EYES: Extraocular movements are grossly intact, clear conjunctiva HENT: Normocephalic, atraumatic, moist mucus membranes NECK: No obvious swelling, normal range of motion PULMONARY: Normal chest rise and fall, no respiratory distress or strido r CARDIOVASCULAR: Regular rate, distal extremities are warm and well perfused GASTROINTESTINAL: Nondistended, non-tender GENITOURINARY: No CVA tenderness noted NEUROLOGIC: Normal speech, move s all extremities MUSCULOSKELETAL: No gross deformities, atraumatic PSYCHIATRIC: Depressed, reports AH/VH, denies SI HI Results/Orders - Results and Orders Result diagrams: 12/11/21 16:55 12/11/21 16:55 MDM/COURSE - MDM Medical Decision Making Narrative: DDX: Depression, anxiety, schizophrenia, bipolar, substance abuse , intoxication Abnormal Lab Results 12/11/21 12/11/21 16:55 16:55 WBC 10.8 H RBC 4.79 Hgb 14. 9 Hct 44.9 MCV 93.70 MCH 31.1 MCHC 33.20 RDW Coeff of Claribel 11.9 Plt Count 236.0 MPV 11.4 Immature Gran % (Auto) 0.3 Neut % (Auto) 64.0 Lymph % (Auto) 27.8 [place] % (Auto) 6.3 Eos % (Auto) 1.0 Baso % (Auto) 0.6 Neut # (Auto) 6.9 Lymph # (Auto) 3.00 [place] # (Auto) 0.68 Eos # (Auto) 0.11 [...] Calculated Osmolality 291.2 Calcium 9.8 Total Bilirubin 0. 3 AST 33 ALT 66 H Alkaline Phosphatase 67 Total Protein 7.0 Albumin 4.6 Globulin 2.4 Albumin/Globulin Ratio 1.9 Ethyl Alcohol < 3 _ MDM: CBC unremarkable, CMP unremarkable, ethanol negative Patient seen evaluated by behavioral thing cleared for discharge, patient was provided discount prescription cards at discharge, patien t given resources for outpatient psychiatry. Patient denies SI HI at discharge, patient given return precautions verbalized understanding agreement the plan of care The results of pertinent diagnostic studies and exam findings were discussed. The patient s provisional diagnosis and plan of care were discussed with the patient and present family. The patient and/or present family expressed understanding of the diagnosis and plan. The nurse was instructed to provide written instructions and appropriate follow-up information. The patient understands their need and responsibility to obtain additional follow-u p as instructed. The risks of medications administered and prescribed were discussed with the patient and family present. <Honorio Castañeda - Last Filed: 12/13/21 14:30> Arrival - Arrival ED Triage Note: Patient states he does not feel saf e at his home and he feels like someone is tryingt o kill. Patient denies SI/ HI but states he is hearing voices and seeing things. Patient says lissa sim was admitted here and discharged yesterday and lissa sim think the discharge him too soon. H/o depression and anxiety, not taking meds. Psych HPI - Genera l Primary Care Provider: Pcp-Md Shanda Family/Social History - Social History Smoking Status: Current some day smoker Smoked/Used Tobacco in the Last 30 Days?: No Current or Hx of Recreational Drug use: No 1. How Often Do You Have a Drink Containing Alcohol: a. Never Physical Exam Triag e Vital Signs: Temperature 36.8 C 12/11/21 16:19 Temperature Source Oral 12/11/21 16:19 Pulse Rat e 75 12/11/21 16:19 Respiratory Rate 18 12/11/21 16:19 Blood Pressure 135/79 12/11/21 16:19 Blood Pressure Source Automatic Cuff 12/11/21 16:19 Blood Pressure Mean 97 12/11/21 16:19 O2 Sat by Pulse Oximetry 100 12/11/21 16:19 Oxygen Deliver y Method 12/11/21 16:19 Results/Orders - Results and Orders Result diagrams: 12/11/21 16:55 12/11/21 16:55 Lab Testing Results 12/11/21 16:55: WBC 10.8 H, RBC 4.79, Hgb 14.9, Hct 44.9, MCV 93.70, MCH 31.1, MCHC 33.20, RDW Coeffof Claribel 11.9, Plt Count 236.0, MPV 11.4, Immature Gran % (Auto) 0.3, Neut % (Auto) 64.0, Lymph % (Auto) 27.8, [place] % (Auto) 6.3, Eos % (Auto) 1.0, Baso % (Auto) 0.6, Neut # (Auto) 6.9, Lymph # (Auto) 3.00, [place] # (Auto) 0.68, Eos # (Auto) 0.11, Bas o # (Auto) 0.06, Immature Gran # (Auto) 0.03,Absolute Nucleated RBC 0, Nucleated RBC % (auto) 0 12/11/21 16:55: Sodium 141.0, Potassium 3.8, Chloride 107, Carbon Dioxide 29, Anion Gap 5, BUN 12, Creatinine 0.78, Estimated Creat Che r 114.39, Est GFR ( Amer) > 60, Est GFR (Non-Af Amer) > 60, BUN/Creatinine Ratio 15, Glucose 90, Calculated Osmolality 291.2, Calcium 9.8, Total Bilirubin 0.3, AST 33, ALT 66 H, Alkaline Phosphatase 67, Total Protein 7.0, Albumin 4.6, Globulin 2.4, Albumin/Globulin Rati o 1.9, Ethyl Alcohol < 3 12/11/21 17:00: Urine Color Yellow, Urine Clarity Clear, Urine pH 7.5, Ur Specific [place] 1.015, Urine Protein Negative, Urine Glucose (UA) Negative, Urine Ketones Negative, Urine Blood Negative, Urine Nitrate Negative, Urine Bilirubin Negative, Urin e Urobilinogen 1.0, Ur Leukocyte Esterase Negative 12/11/21 17:00: Urine Opiates Screen Negative, Urine Methadone Screen Negative, Ur Propoxyphene Screen Negative, Ur Barbiturates Screen Negative , Ur Phencyclidine Scrn Negative, Ur Amphetamines Screen Negative, U Benzodiazepines Scrn Negative , Urine Cocaine Screen Negative, U Cannabinoids Screen Negative MDM/COURSE Vital Signs Temperature 36.8 C 12/11/21 16:19 Pulse Rate 75 12/11/21 16:19 Respiratory Rate 18 12/11/21 16:1 9 Blood Pressure 135/79 12/11/21 16:19 O2 Sat by Pulse Oximetry 100 12/11/21 16:19 Temperature 36.8 C 12/11/21 16:19 Pulse Rate 82 12/11/21 18:39 Respiratory Rate 18 12/11/21 18:39 Blood Pressure 132/76 12/11/21 18:39 O2 Sat by Pulse Oximetry 99 12/11/21 18:39 - [facility] Medical Decisio n Making Narrative: 12/11/21 16:54 51-year-old florentino sim presents to the emergency department with auditory hallucinations, telling him to kill himself, known prior history of suicide attempt. Psychiatric evaluation pending medical clearance . Calm and co-operative on exam, normal mood and affect, obtaining labs for medical clearence. 12/13/21 14:29 Medically clear for psychiatric evaluation, no longer suicidal, cleared by psychiatry for discharge. - Medical Records Attestation: I reviewed the patient's medical records. Attending - ALLAN: Attending Note ALLAN: ED Attending Attestation: Yes Attending Attestation Statement: I personally saw the patient and performed a substantive portion ofthe visit including: all aspects of: medical decision making Discharge Plan - Discharge Clinical Impression: Anxiety, Depression Disposition: Chase e or Self-Care Condition: Good Instructions: ED Anxiety Reaction, ED Depression Prescriptions: N o Action olanzapine 10 mg Tablet 10 mg PO QHS RF: 0 sertraline 50 mg Tablet 50 mg PO DAILY RF: 0 trazodone 100 mg Tablet 100 mg PO QHS PRN (Reason: Insomnia) RF: 0 Referrals: [facility] [Other] [facility] [Other] [facility] [Other] Pcp-None,MD Artis [Primary Care Provider] - Print Language: Citizen Of [place] - Discharge Data Time Seen by Provider: 12/11/21 16:00 - Depart Patien t Account Discharge Date/Time: 12/11/21 18:39 Dictated By: Honorio Castañeda DO Signed By: Rico Castañeda DO 12/13/21 1430 Christiana Davis NP 12/11/21 1810 DD/ 1654 TD/TT: 12/11/21 1654 Legal Billing Analyst: DENISSE cc: PCPNO* Pcp-NoneMd Manish Physician DocumentationSYEFASyRico blackwellFbyziCvunLzmnyM5036-23-25C30:54:00P.Elizabeth sim for patient djxoHXWFLSuPZBLn9424-34-50V29:31:58
[2023-09-19 17:39] LABS: Specific Gravity 1.016 (1.005-1.030); Urine Bacteria None Seen /HPF (<20); Urine Bilirubin NEGATIVE (Negative); Urine Blood Negative (Negative); Urine Clarity Clear (Clear); Urine Color Yellow (Yellow); Urine Glucose NEGATIVE (Negative); Urine Mucus Slight /HPF (None Seen); Urine Protein TRACE (Negative); Urine RBC <5 /HPF (None Seen); Urine Urobilinogen Normal (Normal); Urine pH 6.5 (5.0-7.0)
[2023-09-19 17:41] LABS: Hematocrit 42.8 % (39.6-49.0); Lymphocytes % 29.1 % (15.3-44.8); MCV 90.9 fL (80-100); MPV 9.7 fL (7.6-11.3); Platelets 214 thou/uL (152-406); RBC Red Blood Cell Count 4.71 M/uL (4.33-5.43)
[2023-09-19 17:43] LABS: Protime INR 1.02
[2023-09-19 17:56] LABS: Albumin 3.8 g/dL (3.4-5.0); Bilirubin Direct 0.1 mg/dL (0-0.2); Bilirubin Indirect, Calculated 0.2 mg/dL (0.2-0.8); Bilirubin Total 0.3 mg/dL (0.2-1.0); Magnesium 1.8 mg/dL (1.6-2.4); Potassium 3.5 mEq/L (3.5-5.1); Protein, Total 7.4 g/dL (6.4-8.2); Troponin High Sensitivity 5.6 pg/mL (<58.9)
--- NOTE | 2023-09-19 18:12 | RAD REPORT ---
EXAM DESCRIPTION: CT - Head Brain Wo Cont - 09/19/2023 5:37 pm CLINICAL HISTORY: Headache COMPARISON: 2021 TECHNIQUE: Computed axial tomography of the head was obtained. IV contrast was not requested. All CT scans are performed using dose optimization technique as appropriate and may include automated exposure control or mA/KV adjustment according to patient size. FINDINGS: An intracranial bleed is not seen The ventricles are normal in caliber No significant hypodense areas within the brain visualized No extra-axial fluid collection is noted. Chronic opacification left mastoids may indicate chronic mastoiditis IMPRESSION: No acute intracranial abnormality is seen Chronic complete opacification left mastoids may indicate chronic mastoiditis If patient's symptoms persist MRI of the brain would be recommended
[2023-09-19] MEDS ORDERED: DIPHENHYDRAMINE 50 MG/ML VIAL ONE (18:25)
[2023-09-19] MEDS ORDERED: METOCLOPRAMIDE 10 MG/2mL INJ ONE (18:26)
[2023-09-19] MEDS ORDERED: dexAMETHasone 10 MG/ML VIAL ONE (18:26)
[2023-09-19] MEDS ORDERED: NA CHLORIDE 0.9% 1,000 ML ONE (18:26)
[2023-09-19] MEDS ORDERED: KETOROLAC 30 MG/ML INJ ONE (18:35)
--- NOTE | 2023-09-19 18:42 | RAD REPORT ---
EXAM DESCRIPTION: Sylwia Single View09/19/2023 6:10 pm CLINICAL HISTORY: cough COMPARISON: April 2023 FINDINGS: The lungs appear clear of acute infiltrate. The heart is normal size IMPRESSION: No acute abnormalities displayed
--- NOTE | 2023-09-19 19:18 | ER ---
Nurse's Notes [facility] Name: Chi Kelley Age: 53 yrs Sex: Male : 1970 Arrival Date: 09/19/2023 Time: 17:00 Bed 20 Private MD: Diagnosis: Headache;Nausea;Dizziness and giddiness Presentation: 09/19 17:07 Chief complaint: EMS states: toned out to [facility] in [place] for a patient that was c/o me1 SINGER, Right lung pain, dizziness, nausea. Coronavirus screen: Vaccine status: Patient reports being unvaccinated. Ebola Screen: No symptoms or risks identified at this time. Initial Sepsis Screen: Does the patient meet any 2 criteria? No. Patient's initial sepsis screen is negative. Does the patient have a suspected source of infection? No. Patient's initial sepsis screen is negative. Risk Assessment: Do you want to hurt yourself or someone else? Patient reports no desire to harm self or others. Onset of symptoms was September 19, 2023. 17:07 Method Of Arrival: EMS: [place] [facility] 17:07 Acuity: DORIAN 3 me1 Triage Assessment: 17:10 General: Appears uncomfortable, unkempt, Behavior is cooperative, appropriate for age, me1 anxious, crying, Reports He and his live in a trailer with black mold. C/o SINGER, Right lung pain, lightheadedness and nausea. Pain: Complains of pain in head Pain does not radiate. Pain currently is 10 out of 10 on a pain scale. Quality of pain is described as aching, Pain began unsure Is continuous. Neuro: Level of Consciousness is awake, alert, obeys commands, Oriented to person, place, time, situation, Appropriate for age. Cardiovascular: Capillary refill < 3 seconds Patient's skin is warm and dry. Respiratory: Airway is patent Respiratory effort is even, unlabored, Respiratory pattern is regular, symmetrical. Historical: - Allergies: 17:10 Hydrocodone-Acetaminophen; me1 - PMHx: 17:10 Anxiety; chronic back pain; Chronic obstructive lung disease; COPD; depressive me1 disorder; Glaucoma; Hypothyroidism; Pre-Diabetes; - PSHx: 17:10 Cholecystectomy; me1 - Immunization history:: Adult Immunizations unknown. - Social history:: Smoking status: Patient reports the use of cigarette tobacco products, smokes one pack cigarettes per day. Screenin:12 [facility] ED Fall Risk Assessment (Adult) History of falling in the last 3 months, me1 including since admission No falls in past 3 months (0 pts) Confusion or Disorientation No (0 pts) Intoxicated or Sedated No (0 pts) Impaired Gait No (0 pts) Mobility Assist Device Used No (0 pt) Altered Elimination No (0 pt) Score/Fall Risk Level 0 - 2 = Low Risk Maintained a safe environment, Provided non-skid footwear, Hourly rounding (assess needs \T\ fall precautionary measures) done. Abuse screen: Denies threats or abuse. Nutritional screening: No deficits noted. Tuberculosis screening: No symptoms or risk factors identified. Assessment: 17:12 General: See triage assessment. . me1 20:25 Reassessment: Patient appears in no apparent distress at this time. Patient denies pain cg at this time. Patient states feeling better. Patient states symptoms have improved. Vital Signs: 17:07 BP 130 / 80; Pulse 77; Resp 19; Temp 97.4(O); Pulse Ox 99% on R/A; me1 17:15 BP 125 / 85; Pulse 80; Resp 16; Pulse Ox 99% on R/A; me1 17:15 BP 121 / 80; Pulse 70; Resp 16; Pulse Ox 100% on R/A; me1 20:25 BP 136 / 70; Pulse 66; Resp 18; Pulse Ox 99% on R/A; cg ED Course: 17:03 Patient arrived in ED. eb 17:05 Cheri Diez, RN is Primary Nurse. hb 17:06 Erika Hackett FNP-C is PHCP. kb 17:06 Ian Rhoades MD is Attending Physician. kb 17:10 Triage completed. me1 17:10 Splint/sling/ice applied as appropriate. Arm band placed on Patient placed in an exam me1 room. 17:12 Patient has correct armband on for positive identification. Bed in low position. Call pa1 light in reach. Side rails up X 1. Provided Education on: POC. Verbalized understanding. . 17:12 No provider procedures requiring assistance completed. me1 17:31 Inserted saline lock: 20 gauge in right antecubital area, using aseptic technique. me1 17:31 Basic Metabolic Panel Sent. me1 17:31 CBC with Diff Sent. me1 17:31 Hepatic Function Sent. me1 17:31 Magnesium Sent. me1 17:31 Protime (+inr) Sent. me1 17:31 Ptt, Activated Sent. me1 17:31 Troponin High Sensitivity Sent. me1 17:31 Urinalysis w/ reflexes Sent. me1 17:38 CT Head Brain wo Cont In Process Unspecified. EDMS 18:12 Chest Single View XRAY In Process Unspecified. EDMS 20:26 IV discontinued, intact, bleeding controlled, No redness/swelling at site. Pressure cg dressing applied. Administered Medications: 18:18 Drug: NS 0.9% IV 1000 ml IV at 1000 ml once Route: IV; Rate: 1000 ml; Site: right me1 antecubital; 18:18 Drug: Decadron - Dexamethasone IVP 10 mg IVP once Route: IVP; Site: right antecubital; me1 18:18 Drug: diphenhydrAMINE IVP 12.5 mg IVP once Route: IVP; Site: right antecubital; me1 18:18 Drug: metoCLOPramide IVP 10 mg IVP once; over 1 to 2 minutes Route: IVP; Site: right me1 antecubital; 18:22 Drug: Ketorolac IVP 15 mg IVP once Route: IVP; Site: right antecubital; me1 Medication: 17:12 VIS not applicable for this client. me1 Outcome: 19:18 Discharge ordered by . kb 20:26 Discharged to home ambulatory, cg 20:26 Condition: stable 20:26 Discharge instructions given to patient, Instructed on discharge instructions, follow up and referral plans. Demonstrated understanding of instructions, follow-up care, medications, 20:26 Patient left the ED. cg Signatures: Dispatcher [employer] EDErika Gaffney, ADMISSIONS NURSE-C ADMISSIONS NURSE-Joelle Yeung RN RN Cheri Diez RN RN hb Botello, Elizabeth eb Eddleman, Michelle, RN RN me1 Corrections: (The following items were deleted from the chart) 17:10 17:10 Allergies: No Known Allergies; me1 me1
--- NOTE | 2023-09-19 19:18 | EDPHYS ---
Physician Documentation [facility] Name: Chi Kelley Age: 53 yrs Sex: Male : 1970 Arrival Date: 09/19/2023 Time: 17:00 Bed 20 Private MD: ED Physician Ian Rhoades HPI: 09/19 19:19 This 53 yrs old Male presents to ER via EMS with complaints of dizziness, headache, kb nausea. 19:19 Patient is a 53-year-old male who presents for headache, nausea, vomiting, dizziness kb and right lung pain. States all the symptoms started 1 week ago and had been persistent. Denies fever. States that there is black mold where he lives that is because of the symptoms.. Historical: - Allergies: 17:10 Hydrocodone-Acetaminophen; me1 - PMHx: 17:10 Anxiety; chronic back pain; Chronic obstructive lung disease; COPD; depressive me1 disorder; Glaucoma; Hypothyroidism; Pre-Diabetes; - PSHx: 17:10 Cholecystectomy; me1 - Immunization history:: Adult Immunizations unknown. - Social history:: Smoking status: Patient reports the use of cigarette tobacco products, smokes one pack cigarettes per day. ROS: 19:18 Constitutional: Negative for fever, chills, and weight loss, kb 19:18 Respiratory: Positive for pleurisy, 19:18 Abdomen/GI: Positive for nausea and vomiting, Negative for abdominal pain, 19:18 Neuro: Positive for dizziness, headache, 19:18 All other systems are negative, Exam: 19:18 Constitutional: This is a well developed, well nourished patient who is awake, alert, kb and in no acute distress. Head/Face: Normocephalic, atraumatic. ENT: Moist Mucous membranes Cardiovascular: Regular rate Respiratory: Respirations even and unlabored. No increased work of breathing. Talking in full sentences Abdomen/GI: Soft, non-tender. No distention Skin: Warm, dry with normal turgor. Normal color. MS/ Extremity: Pulses equal, no cyanosis. Neurovascular intact. Full, normal range of motion. Neuro: Awake and alert, GCS 15, oriented to person, place, time, and situation. Moves all extremities. Normal gait. 23:15 ECG was reviewed by the Attending Physician. kb Vital Signs: 17:07 BP 130 / 80; Pulse 77; Resp 19; Temp 97.4(O); Pulse Ox 99% on R/A; me1 17:15 BP 125 / 85; Pulse 80; Resp 16; Pulse Ox 99% on R/A; me1 17:15 BP 121 / 80; Pulse 70; Resp 16; Pulse Ox 100% on R/A; me1 20:25 BP 136 / 70; Pulse 66; Resp 18; Pulse Ox 99% on R/A; cg MDM: 17:06 Patient medically screened. kb 19:17 Data reviewed: vital signs, nurses notes. Counseling: I had a detailed discussion with kb the patient and/or guardian regarding the historical points, exam findings, and any diagnostic results supporting the discharge/admit diagnosis, lab results, radiology results, the need for outpatient follow up, a family practitioner, to return to the emergency department if symptoms worsen or persist or if there are any questions or concerns that arise at home. Response to treatment: the patient's symptoms have resolved after treatment. 19:18 Historians other than the Patient: EMS: [facility]. kb 09/19 17:07 Order name: Basic Metabolic Panel; Complete Time: 17:58 kb 09/19 17:07 Order name: CBC with Diff; Complete Time: 17:49 kb 09/19 17:07 Order name: Hepatic Function; Complete Time: 17:58 kb 09/19 17:07 Order name: Magnesium; Complete Time: 17:58 kb 03 17:07 Order name: Protime (+inr); Complete Time: 17:43 kb 09/19 17:07 Order name: Ptt, Activated; Complete Time: 17:43 kb 09/19 17:07 Order name: Troponin High Sensitivity; Complete Time: 17:58 kb 03 17:07 Order name: Urinalysis w/ reflexes; Complete Time: 17:42 kb 09/19 17:07 Order name: CT Head Brain wo Cont; Complete Time: 18:13 kb 09/19 17:07 Order name: Chest Single View XRAY; Complete Time: 18:48 kb 09/19 17:07 Order name: EKG; Complete Time: 17:08 kb 09/19 17:07 Order name: Cardiac monitoring kb 09/19 17:07 Order name: EKG - Nurse/Tech kb 09/19 17:07 Order name: IV Saline Lock; Complete Time: 17:31 kb 09/19 17:07 Order name: Labs collected and sent; Complete Time: 17:32 kb 09/19 17:07 Order name: NPO; Complete Time: 17:32 kb 09/19 17:07 Order name: O2 Per Protocol; Complete Time: 17:32 kb 09/19 17:07 Order name: O2 Sat Monitoring; Complete Time: 17:32 kb 09/19 17:07 Order name: Orthostatics kb EC:15 Rate is 73 beats/min. Rhythm is regular. QRS [place] is Normal. [place] interval is normal at kb 190 msec. QRS interval is normal at 74 msec. QT interval is normal at 418 msec. Administered Medications: 18:18 Drug: NS 0.9% IV 1000 ml IV at 1000 ml once Route: IV; Rate: 1000 ml; Site: right me1 antecubital; 18:18 Drug: Decadron - Dexamethasone IVP 10 mg IVP once Route: IVP; Site: right antecubital; ar1 18:18 Drug: diphenhydrAMINE IVP 12.5 mg IVP once Route: IVP; Site: right antecubital; ar1 18:18 Drug: metoCLOPramide IVP 10 mg IVP once; over 1 to 2 minutes Route: IVP; Site: right me1 antecubital; 18:22 Drug: Ketorolac IVP 15 mg IVP once Route: IVP; Site: right antecubital; ar1 Disposition Summary: 09/19/23 19:18 Discharge Ordered Notes: Location: Home kb Condition: Stable kb Diagnosis - Headache kb - Nausea kb - Dizziness and giddiness kb Followup: kb - With: Emergency Department - When: As needed - Reason: Worsening of condition Followup: kb - With: Private Physician - When: 2 - 3 days - Reason: Recheck today's complaints, Continuance of care, Re-evaluation by your physician Discharge Instructions: - Discharge Summary Sheet kb - General Headache Without Cause, [id number] kb - Dizziness, [id number] kb Forms: - Medication Reconciliation Form kb - Thank You Letter kb - Antibiotic Education kb - Prescription Opioid Use kb - Patient Portal Instructions kb - Leadership Thank You Letter kb Signatures: Dispatcher [employer] Erika Galan, IMMIGRATION ATTORNEY-C IMMIGRATION ATTORNEY-Susanna Hough RN RN me1 Corrections: (The following items were deleted from the chart) 17:10 17:10 Allergies: No Known Allergies; me1 me1
[2023-09-19 20:52] VITALS: TEMP 97.4
[2023-09-19 20:58] VITALS: BP 121/80; O2SAT 100
--- NOTE | 2023-09-21 13:33 | EKG ---
Test Date: 2023-09-19 Test Time: 19:32:46 Project Assistant: DARRON MEASUREMENT RESULTS: Intervals: Rate: 73 TX: 190 QRSD: 74 QT: 380 QTc: 418 [place]: P: 45 TX: 190 QRS: 34 T: 36 INTERPRETIVE STATEMENTS: Normal sinus rhythm Normal ECG Compared to ECG 05/10/2023 20:23:50 No significant changes Electronically Signed On 09-21-23 13:28:01 NURSE PRACTITIONER HOSPITALIST by Tremayne An
== END 2023-09-19 20:26 | disposition home or self-care (01) ==
LOC: ER 17:00
DX: R51.9 Headache, unspecified (principal); R11.0 Nausea; R42 Dizziness and giddiness; F17.210 Nicotine dependence, cigarettes, uncomplicated; Z88.5 Allergy status to narcotic agent
CPT/HCPCS: 93005; 85025; 81001; 80048; 36415; 83735; 85610; 80076; 85730; 84484; 70450; 71045; 96375; 96374; 99284; J2765; J1200; J1100; J7030

== ENCOUNTER 2023-09-28 15:01 | Emergency (ER) | payer OTHER ==
[2023-09-28 15:31] LABS: Specific Gravity 1.008 (1.005-1.030); Urine Bacteria None Seen /HPF (<20); Urine Bilirubin NEGATIVE (Negative); Urine Blood 3+ (Negative); Urine Clarity Turbid (Clear); Urine Color Light-Yellow (Yellow); Urine Crystals Unidentified Few /HPF (None Seen); Urine Glucose NEGATIVE (Negative); Urine Mucus Slight /HPF (None Seen); Urine Protein NEGATIVE (Negative); Urine RBC 21-50 /HPF (None Seen); Urine Urobilinogen Normal (Normal)
[2023-09-28 15:35] LABS: Absolute Lymphocytes (CBC) 2.3 K/uL (0.7-4.9); Hematocrit 43.5 % (39.6-49.0); Lymphocytes % 19.9 % (15.3-44.8); MCV 90.2 fL (80-100); MPV 9.2 fL (7.6-11.3); Platelets 226 thou/uL (152-406); RBC Red Blood Cell Count 4.83 M/uL (4.33-5.43)
[2023-09-28 15:44] LABS: Protime INR 1.07
[2023-09-28 15:50] LABS: Barbiturates NEGATIVE (NEGATIVE); Benzodiazepines NEGATIVE (NEGATIVE); Cocaine NEGATIVE (NEGATIVE); METHAMPHETAM NEGATIVE (NEGATIVE); Methadone NEGATIVE (NEGATIVE); Opiates NEGATIVE (NEGATIVE); Phencyclidine NEGATIVE (NEGATIVE); THC Cannibis NEGATIVE (NEGATIVE)
[2023-09-28 16:44] LABS: ALT/SGPT 63 U/L (16-61); AST/SGOT 34 U/L (15-37); Albumin 3.9 g/dL (3.4-5.0); Alkaline Phosphatase 82 U/L (45-117); BUN Blood Urea Nitrogen 9 mg/dL (7-18); Bicarbonate 24 mEq/L (21-32); Bilirubin Direct 0.2 mg/dL (0-0.2); Bilirubin Indirect, Calculated 0.3 mg/dL (0.2-0.8); Bilirubin Total 0.5 mg/dL (0.2-1.0); Glomerular Filtration Rate 78 ml/min (=/>90); Glucose Level 124 mg/dL (74-106); Potassium 3.5 mEq/L (3.5-5.1); Protein, Total 7.9 g/dL (6.4-8.2); Sodium Level 138 mEq/L (136-145)
--- NOTE | 2023-09-28 17:09 | ER ---
Nurse's Notes [facility] Name: Chi Kelley Age: 53 yrs Sex: Male : 1970 Arrival Date: 09/28/2023 Time: 15:01 Bed 16 Private MD: Diagnosis: Homicidal and suicidal ideations Presentation: 09/28 15:15 Chief complaint: Brought in by [employer] in handcuffs on ARON No. [id number]. Per officer hb pt was agitated and paranoid at his home, destroyed parts of the home, pt placed in handcuffs for fear of violence toward self and/or officer. Pt tearful, stated to nurse "I wanna kill myself, I don't wanna live no more, I'm retarded, everyone thinks I'm crazy in the head, I am suicidal and homicidal and I want to be ." Suicide plan is "to take all my pills." Pt reportedly has been inpatient [facility] [place]. 15:15 Method Of Arrival: Law Enforcement: [employer] NGUYEN 15:15 Chief complaint:. Coronavirus screen: At this time, the client does not indicate any hb symptoms associated with coronavirus-19. Ebola Screen: No symptoms or risks identified at this time. Initial Sepsis Screen: Does the patient meet any 2 criteria? No. Patient's initial sepsis screen is negative. Does the patient have a suspected source of infection? No. Patient's initial sepsis screen is negative. Risk Assessment: Do you want to hurt yourself or someone else? Patient reports desire/thoughts of hurting themselves or someone else. Provider notified. Onset of symptoms was September 28, 2023. 15:15 Acuity: DORIAN 2 hb Historical: - Allergies: 15:27 Hydrocodone-Acetaminophen; hb - Home Meds: 17:27 sertraline 100 mg Oral tablet 2 tabs daily [Active]; quetiapine 400 mg Oral tablet 1 db tab every day at bedtime [Active]; omeprazole 40 mg Oral capsule 1 cap daily [Active]; olanzapine 15 mg Oral Tablet 1 tab every day at bedtime [Active]; mirtazapine 15 mg Oral tablet 1 tab every day at bedtime [Active]; - PMHx: 15:27 Anxiety; chronic back pain; Chronic obstructive lung disease; COPD; depressive hb disorder; Glaucoma; Hypothyroidism; Pre-Diabetes; - PSHx: 15:27 Cholecystectomy; hb - Immunization history:: Adult Immunizations unknown. - Social history:: Smoking status: unknown. Screenin:45 [facility] ED Fall Risk Assessment (Adult) History of falling in the last 3 months, db including since admission No falls in past 3 months (0 pts) Confusion or Disorientation No (0 pts) Intoxicated or Sedated No (0 pts) Impaired Gait No (0 pts) Mobility Assist Device Used No (0 pt) Altered Elimination No (0 pt) Score/Fall Risk Level 0 - 2 = Low Risk Oriented to surroundings, Maintained a safe environment. Abuse screen: Denies threats or abuse. Denies injuries from another. Nutritional screening: No deficits noted. Tuberculosis screening: No symptoms or risk factors identified. Assessment: 15:20 Reassessment: Patient appears in no apparent distress at this time. Patient and/or db family updated on plan of care and expected duration. Pain level reassessed. PATIENT IS TEARFUL. OFFICER AT BEDSIDE. 16:00 Reassessment: Patient appears in no apparent distress at this time. Patient and/or db family updated on plan of care and expected duration. Pain level reassessed. Patient is alert, oriented x 3, equal unlabored respirations, skin warm/dry/pink. PT IS CALM AND QUIET. 17:00 Reassessment: Patient appears in no apparent distress at this time. Patient and/or db family updated on plan of care and expected duration. Pain level reassessed. Patient is alert, oriented x 3, equal unlabored respirations, skin warm/dry/pink. 17:23 Reassessment: REPORT GIVEN TO RENETTA SANTANA [facility] NURSE TO NURSE. db 17:40 Reassessment: Patient appears in no apparent distress at this time. Patient and/or db family updated on plan of care and expected duration. Pain level reassessed. Patient is alert, oriented x 3, equal unlabored respirations, skin warm/dry/pink. PATIENT SIGNED CONSENT FOR TRANSFER. 17:44 General: Appears in no apparent distress. comfortable, Behavior is calm, cooperative. db Pain: Denies pain. Neuro: Level of Consciousness is awake, alert, obeys commands, Oriented to person, place, time, situation. Respiratory: Airway is patent Respiratory effort is even, unlabored, Respiratory pattern is regular, symmetrical. 18:28 Reassessment: Patient appears in no apparent distress at this time. Patient and/or db family updated on plan of care and expected duration. Pain level reassessed. Patient is alert, oriented x 3, equal unlabored respirations, skin warm/dry/pink. [facility] HERE FOR PT TRANSPORT. Psych: 15:15 [place] Suicide Severity Screening: In the past month, have you wished you were db or wished you could go to sleep and not wake up? Patient responds "yes." "In the past month, have you actually had any thoughts of killing yourself?" Patient responds "yes." Based off the client's response additional [place] suicide severity screening questions to be further documented on paper forms. "In your lifetime, have you ever done anything, started to do anything, or prepared to do anything to end your life?" Patient responds "yes." Patient reports suicidal intent within 3 past months. Subjective: Patient's mood is sad, hopeless, Delusions are persecutory, Hallucinations are denied Having thoughts of suicide. Denies suicidal plan. Objective: Patient is cooperative, Speech is normal, Affect is flat. Interventions: Removed personal items and placed in bag. Patient placed in hospital gown. Searched person for dangerous items. Urine collected and sent for urine drug test. Belonging list filled out. Safety Checks: Personal items have been removed. Door is open. Visitors are present. Pt denies substance abuse. Commitment: Patient will be an involuntary commitment. Commitment papers completed. Vital Signs: 15:15 BP 152 / 90; Pulse 81; Resp 16; Temp 98.3; Pulse Ox 100% on R/A; Weight 95.25 kg; hb Height 5 ft. 7 in. ; Pain 0/10; 17:40 BP 141 / 85; Pulse 77; Resp 16; Pulse Ox 100% on R/A; db 15:15 Body Mass Index 32.89 (95.25 kg, 170.18 cm) hb 15:15 Pain Scale: Adult hb ED Course: 15:05 Patient arrived in ED. bd 15:08 Erika Hackett FNP-C is PHCP. kb 15:08 Donavon Aguilar DO is Attending Physician. kb 15:18 Urine collected: clean catch specimen, clear. tm3 15:27 Triage completed. hb 15:27 Arm band placed on. hb 15:28 Initial lab(s) drawn, by me, sent to lab. Inserted saline lock: 22 gauge in right tm3 antecubital area, using aseptic technique. 15:41 Arianna Campo, RN is Primary Nurse. db 15:43 EKG done, by ED staff. tm3 17:14 faxed chart to [facility], [facility], [facility]. bd 17:45 Patient has correct armband on for positive identification. Bed in low position. Call db light in reach. Side rails up X 1. Warm blanket given. 18:01 pt accepted in transfer to [facility] by dr Mabry, approval given by Chelsey Isabel. bd 18:28 No provider procedures requiring assistance completed. IV discontinued, intact, db bleeding controlled, No redness/swelling at site. 18:28 Provided Education on: TRANSFER TO FACILITY. db Administered Medications: No medications were administered Medication: 17:50 VIS not applicable for this client. db Outcome: 17:09 ER care complete, transfer ordered by . kb 18:28 Transferred by ground EMS Note: TO [facility] WITH EMS db 18:28 Condition: stable 18:28 Instructed on the need for transfer, 18:30 Patient left the ED. db Signatures: Erika Hackett, SLEEVE TURNER-C SLEEVE TURNER-Maggi [place], [place] tm3 Cheri Diez, RN RN Arianna Campo, RN RN db Corrections: (The following items were deleted from the chart) 15:27 15:15 Chief complaint: Brought in by [place] [employer] in handcuffs on ARON No. [id number]. Pt hb Per officer pt was agitated and paranoid at his home, destroyed parts of the home, pt placed in handcuffs for fear of violence toward self and/or officer. Pt tearful, stated to nurse "I I wanna kill myself, I don't lucho alive no more, I'm retarded, everyone thinks I'm crazy in the head, i am suicidal and homicidal and I want to be ." Suicide plan is "to take all my pills." Pt reportedly has been in patient at [facility]. hb 15:28 15:15 Chief complaint: Brought in by [employer] in handcuffs on ARON No. [id number]. Pt hb Per officer pt was agitated and paranoid at his home, destroyed parts of the home, pt placed in handcuffs for fear of violence toward self and/or officer. Pt tearful, stated to nurse "I wanna kill myself, I don't wanna live no more, I'm retarded, everyone thinks I'm crazy in the head, I am suicidal and homicidal and I want to be ." Suicide plan is "to take all my pills." Pt reportedly has been inpatient at [facility] [place] [facility]. hb 18:21 15:15 [place] Suicide Severity Screening: In the past month, have you wished you were db or wished you could go to sleep and not wake up? Patient responds "yes." "In the past month, have you actually had any thoughts of killing yourself?" Patient responds "yes." Based off the client's response additional [place] suicide severity screening questions to be further documented on paper forms. "In your lifetime, have you ever done anything, started to do anything, or prepared to do anything to end your life?" Patient responds "yes." Patient reports suicidal intent within 3 past months. db
--- NOTE | 2023-09-28 17:09 | EDPHYS ---
Physician Documentation [facility] Name: Chi Kelley Age: 53 yrs Sex: Male : 1970 Arrival Date: 09/28/2023 Time: 15:01 Bed 16 Private MD: ED Physician Donavon Aguilar HPI: 09/28 15:47 This 53 yrs old Male presents to ER via Law Enforcement with complaints of kb Suicidal/Homicidal Ideation. 15:47 Patient is a 53-year-old male with a history of COPD, anxiety, depression who presents kb for suicidal and homicidal ideations. States people have been saying he wanted to harm his but he does not want to harm his . States he has homicidal ideations towards his program management manager because she is trying to frame him. States his plan for committing suicide would involve cutting himself or taking all of his pills.. Historical: - Allergies: 15:27 Hydrocodone-Acetaminophen; hb - Home Meds: 17:27 sertraline 100 mg Oral tablet 2 tabs daily [Active]; quetiapine 400 mg Oral tablet 1 db tab every day at bedtime [Active]; omeprazole 40 mg Oral capsule 1 cap daily [Active]; olanzapine 15 mg Oral Tablet 1 tab every day at bedtime [Active]; mirtazapine 15 mg Oral tablet 1 tab every day at bedtime [Active]; - PMHx: 15:27 Anxiety; chronic back pain; Chronic obstructive lung disease; COPD; depressive hb disorder; Glaucoma; Hypothyroidism; Pre-Diabetes; - PSHx: 15:27 Cholecystectomy; hb - Immunization history:: Adult Immunizations unknown. - Social history:: Smoking status: unknown. ROS: 15:46 Constitutional: Negative for fever, chills, and weight loss, kb 15:46 Psych: Positive for anxiety, depression, homicidal ideation, suicidal ideation, 15:46 All other systems are negative, Exam: 15:45 Constitutional: This is a well developed, well nourished patient who is awake, alert, kb and in no acute distress. Head/Face: Normocephalic, atraumatic. ENT: Moist Mucous membranes Cardiovascular: Regular rate Respiratory: Respirations even and unlabored. No increased work of breathing. Talking in full sentences Abdomen/GI: Soft, non-tender. No distention Skin: Warm, dry with normal turgor. Normal color. MS/ Extremity: Pulses equal, no cyanosis. Neurovascular intact. Full, normal range of motion. Neuro: Awake and alert, GCS 15, oriented to person, place, time, and situation. Moves all extremities. Normal gait. 15:45 ECG was reviewed by the Attending Physician. 15:45 Psych: Behavior/mood is cooperative, anxious, suicidal, depressed, Affect is animated, Oriented to person, place, time, Patient having thoughts of suicide. Plan for suicide is cut self, overdose Patient having thoughts of homicide. Homicidal thoughts directed towards his program management manager Vital Signs: 15:15 BP 152 / 90; Pulse 81; Resp 16; Temp 98.3; Pulse Ox 100% on R/A; Weight 95.25 kg; hb Height 5 ft. 7 in. ; Pain 0/10; 17:40 BP 141 / 85; Pulse 77; Resp 16; Pulse Ox 100% on R/A; db 15:15 Body Mass Index 32.89 (95.25 kg, 170.18 cm) hb 15:15 Pain Scale: Adult hb MDM: 15:08 Patient medically screened. kb 15:46 Differential diagnosis: suicidal ideations, homicidal ideations, anxiety, depression, kb acute stress reaction. Data reviewed: vital signs, nurses notes. Historians other than the Patient: Law enforcement: PD. 16:10 Consideration of Admission/Observation Escalation of care including kb admission/observation considered. pt will be transferred to inpatient psychiatric facility. Counseling: I had a detailed discussion with the patient and/or guardian regarding the historical points, exam findings, and any diagnostic results supporting the discharge/admit diagnosis, lab results, the need to transfer to another facility, [facility] does not immediately have the required specialist. 16:49 ED course: Pt is medically cleared. Transfer initiated for inpatient psychiatric kb treatment. Pt is voluntary. 17:32 Management of patient was discussed with the following: Behavioral Health Provider: Pt kb accepted to [facility] by Dr Mabry without conference. 09/28 15:08 Order name: Acetaminophen; Complete Time: 16:49 kb 09/28 15:08 Order name: Basic Metabolic Panel; Complete Time: 16:49 kb 09/28 15:08 Order name: CBC with Diff; Complete Time: 15:44 kb 09/28 15:08 Order name: ETOH Level; Complete Time: 16:26 kb 09/28 15:08 Order name: Hepatic Function; Complete Time: 16:49 kb 09/28 15:08 Order name: PT-INR; Complete Time: 15:44 kb 09/28 15:08 Order name: Ptt, Activated; Complete Time: 15:44 kb 09/28 15:08 Order name: Salicylate; Complete Time: 16:26 kb 09/28 15:08 Order name: Urinalysis w/ reflexes; Complete Time: 15:32 kb 09/28 15:08 Order name: Urine Drug Screen; Complete Time: 16:02 kb 09/28 15:08 Order name: EKG; Complete Time: 15:09 kb 09/28 15:08 Order name: EKG - Nurse/Tech; Complete Time: 15:43 kb 09/28 15:08 Order name: IV Saline Lock; Complete Time: 16:53 kb 09/28 15:08 Order name: Labs collected and sent; Complete Time: 16:53 kb 09/28 15:08 Order name: Suicide Precautions; Complete Time: 16:53 kb 09/28 15:08 Order name: Suicide Screening ([place]); Complete Time: 16:53 kb EC:45 Rate is 72 beats/min. Rhythm is regular. QRS [place] is Normal. MA interval is normal at kb 154 msec. QRS interval is normal at 80 msec. QT interval is normal at 420 msec. Administered Medications: No medications were administered Disposition: 17:14 I was immediately available on-site in the Emergency Department for consultation in the ms3 care of the patient. Disposition Summary: 09/28/23 17:09 Transfer Ordered Notes: Transfer Location: Psych Facility kb Reason: Higher level of care kb Condition: Stable kb Problem: new kb Symptoms: are unchanged kb Accepting Physician: Dr aMbry(09/28/23 18:30) db Diagnosis - Homicidal and suicidal ideations kb Forms: - Medication Reconciliation Form kb - SBAR form kb Signatures: Dispatcher [employer] EDMS Erika Hackett FNP-C FNP-Cheri Scruggs, RN RN Donavon Guaman DO DO ms3 Arianna Campo RN RN db Corrections: (The following items were deleted from the chart) 17:33 17:09 Dr jennifer rodriguez 18:30 17:33 Dr Mabry kb db
[2023-09-28 18:59] VITALS: TEMP 98.3; O2SAT 100
[2023-09-28 19:01] VITALS: BP 141/85
--- NOTE | 2023-09-29 13:05 | EKG ---
Test Date: 2023-09-28 Test Time: 15:41:53 Dry Roller: TM MEASUREMENT RESULTS: Intervals: Rate: 72 PA: 154 QRSD: 80 QT: 384 QTc: 420 Koppel: P: 52 PA: 154 QRS: 44 T: 65 INTERPRETIVE STATEMENTS: Normal sinus rhythm Normal ECG Compared to ECG 09/19/2023 19:32:46 No significant changes Electronically Signed On 09-29-23 13:03:49 [employer] DRAW[employer] by Tremayne An
== END 2023-09-28 18:30 ==
LOC: ER 15:01
DX: R45.851 Suicidal ideations (principal); F41.9 Anxiety disorder, unspecified; J44.9 Chronic obstructive pulmonary disease, unspecified; F32.A Depression, unspecified; Z88.5 Allergy status to narcotic agent
CPT/HCPCS: 36415; 80048; 80076; 80143; 80179; 80307; 81001; 82077; 85025; 85610; 85730; 93005

== ENCOUNTER → 2023-12-12 | Emergency (ER) | payer OTHER ==
[2023-12-12 13:25] LABS: Absolute Lymphocytes (CBC) 2.4 K/uL (0.7-4.9); Hematocrit 42.1 % (39.6-49.0); Lymphocytes % 24.4 % (15.3-44.8); MCV 89.2 fL (80-100); MPV 9.1 fL (7.6-11.3); Platelets 251 thou/uL (152-406); RBC Red Blood Cell Count 4.72 M/uL (4.33-5.43)
[2023-12-12 13:29] LABS: Protime INR 1.13
[2023-12-12 13:34] LABS: Urine Bacteria None Seen /HPF (<20); Urine Bilirubin NEGATIVE (Negative); Urine Blood Negative (Negative); Urine Clarity Turbid (Clear); Urine Color Yellow (Yellow); Urine Glucose NEGATIVE (Negative); Urine Mucus 4+ /HPF (None Seen); Urine Protein 1+ (Negative); Urine RBC <5 /HPF (None Seen); Urine Urobilinogen 1+ (Normal)
[2023-12-12 13:40] LABS: Barbiturates NEGATIVE (NEGATIVE); Benzodiazepines NEGATIVE (NEGATIVE); Cocaine NEGATIVE (NEGATIVE); METHAMPHETAM NEGATIVE (NEGATIVE); Methadone NEGATIVE (NEGATIVE); Opiates NEGATIVE (NEGATIVE); Phencyclidine NEGATIVE (NEGATIVE); THC Cannibis NEGATIVE (NEGATIVE)
[2023-12-12 13:51] LABS: ALT/SGPT 89 U/L (16-61); AST/SGOT 37 U/L (15-37); Alkaline Phosphatase 65 U/L (45-117); BUN Blood Urea Nitrogen 14 mg/dL (7-18); Bicarbonate 24 mEq/L (21-32); Bilirubin Direct 0.2 mg/dL (0-0.2); Bilirubin Indirect, Calculated 0.3 mg/dL (0.2-0.8); Bilirubin Total 0.5 mg/dL (0.2-1.0); Glomerular Filtration Rate 82 ml/min (=/>90); Glucose Level 166 mg/dL (74-106); Protein, Total 7.7 g/dL (6.4-8.2); Sodium Level 139 mEq/L (136-145)
[2023-12-12 14:00] LABS: T3 Free 2.78 pg/mL (2.18-3.98); T4,Total 12.2 ug/dL (4.5-12.1)
--- NOTE | 2023-12-12 14:07 | EDPHYS ---
Physician Documentation [facility] Name: Chi Kelley Age: 53 yrs Sex: Male : 1970 Arrival Date: 12/12/2023 Time: 12:58 Bed 7 Private MD: ED Physician Ian Rhoades HPI: 12/12 13:07 This 53 yrs old Male presents to ER via EMS with complaints of Possible Overdose. jh7 13:07 The patient presents to the emergency department with a possible overdose, was found [facility] with a bottle. Context: Method: the patient has a confirmed or suspected ingestion, Levothyroxine, Time: this morning, Extent: it is unknown what amount the patient ingested, the strength of the pills/capsules is .25 mg(s), the OD/poisoning occurred at at home, and was witnessed by family, , Found with a bottle, Psychiatric history: the patient has a known psychiatric disorder, depression, Previous OD/poisoning history: yes. Associated signs and symptoms: The patient has no apparent associated signs or symptoms. Historical: - Allergies: 13:14 Hydrocodone-Acetaminophen; ph - Home Meds: 13:14 mirtazapine 15 mg Oral tablet 1 tab every day at bedtime [Active]; olanzapine 15 mg ph Oral tablet 1 tab every day at bedtime [Active]; omeprazole 40 mg Oral capsule 1 cap daily [Active]; quetiapine 400 mg Oral tablet 1 tab every day at bedtime [Active]; sertraline 100 mg Oral tablet 2 tabs daily [Active]; - PMHx: 13:14 Anxiety; chronic back pain; Chronic obstructive lung disease; COPD; depressive ph disorder; Glaucoma; Hypothyroidism; Pre-Diabetes; - PSHx: 13:14 Cholecystectomy; ph - Immunization history:: Adult Immunizations unknown. - Social history:: Smoking status: Patient denies any tobacco usage or history of. Patient/guardian denies using alcohol, street drugs. ROS: 13:07 Constitutional: Negative for fever, chills, and weight loss, Eyes: Negative for injury, jh7 pain, redness, and discharge, Neck: Negative for injury, pain, and swelling, Cardiovascular: Negative for chest pain, palpitations, and edema, Respiratory: Negative for shortness of breath, cough, wheezing, and pleuritic chest pain, Abdomen/GI: Negative for abdominal pain, nausea, vomiting, diarrhea, and constipation, Skin: Negative for injury, rash, and discoloration, Neuro: Negative for headache, weakness, numbness, tingling, and seizure, 13:07 Psych: Positive for depression, suicide gesture, 13:07 All other systems are negative, Exam: 13:07 Constitutional: This is a well developed, well nourished patient who is awake, alert, jh7 and in no acute distress. Head/Face: Normocephalic, atraumatic. Neck: Trachea midline, no thyromegaly or masses palpated, and no cervical lymphadenopathy. Supple, full range of motion without nuchal rigidity, or vertebral point tenderness. No Meningismus. Cardiovascular: Regular rate and rhythm with a normal S1 and S2. No gallops, murmurs, or rubs. Normal PMI, no JVD. No pulse deficits. Respiratory: Lungs have equal breath sounds bilaterally, clear to auscultation and percussion. No rales, rhonchi or wheezes noted. No increased work of breathing, no retractions or nasal flaring. Abdomen/GI: Soft, non-tender, with normal bowel sounds. No distension or tympany. No guarding or rebound. No evidence of tenderness throughout. Back: No spinal tenderness. No costovertebral tenderness. Full range of motion. Skin: Warm, dry with normal turgor. Normal color with no rashes, no lesions, and no evidence of cellulitis. MS/ Extremity: Pulses equal, no cyanosis. Neurovascular intact. Full, normal range of motion. Neuro: Awake and alert, GCS 15, oriented to person, place, time, and situation. Cranial nerves II-XII grossly intact. Motor strength 5/5 in all extremities. Sensory grossly intact. Cerebellar exam normal. Normal gait. 13:07 Psych: Behavior/mood is suicidal, Affect is flat, Oriented to person, place, time, Patient having thoughts of suicide. Plan for suicide is to overdose Judgement / Insight is normal. Recent memory is intact. Delusions/hallucinations are not present. Vital Signs: 13:07 BP 128 / 85; Pulse 81; Resp 18; Temp 97.6; Pulse Ox 100% on R/A; Weight 86.18 kg; ph 15:30 BP 122 / 76; Pulse 76; Resp 18; Temp 97.2; Pulse Ox 98% on R/A; ph MDM: 13:02 Patient medically screened. [facility] 13:10 Management of patient was discussed with the following: Robert with poison control. Case [facility] #[id number]. Symptoms to look out for include tremors, anxiety, tachycardia, and hypertension. Due to the age of the pill bottle in the low dosage, Poison control reports that there is a low concern for adverse effects. Reports that if labs come back normal we may initiate transfer for psych consult. Advised EKG, T3, T4, TSH, and toxicology labs.. 14:19 Differential diagnosis: Ingestion/exposure to Levothyroxine polypharmacy, over [facility] medication, Suicide attempt. Data reviewed: vital signs, nurses notes, lab test result(s), EKG. Consideration of Admission/Observation Patient will be transferred to the appropriate facility. Independent interpretation of the following test(s) in the Emergency Department EKG: See my EKG interpretation above. Historians other than the Patient: EMS: EMS. Counseling: I had a detailed discussion with the patient and/or guardian regarding the historical points, exam findings, and any diagnostic results supporting the discharge/admit diagnosis, the need to transfer to another facility, [facility] does not immediately have the required specialist. 12/12 13:03 Order name: Acetaminophen; Complete Time: 14: [facility] 12/12 13:03 Order name: Basic Metabolic Panel; Complete Time: 14: [facility] 12/12 13:03 Order name: CBC with Diff; Complete Time: 14: [facility] 12/12 13:03 Order name: ETOH Level; Complete Time: 14: [facility] 12/12 13:03 Order name: Hepatic Function; Complete Time: 14: [facility] 12/12 13:03 Order name: PT-INR; Complete Time: 14: [facility] 12/12 13:03 Order name: Ptt, Activated; Complete Time: 14: [facility] 12/12 13:03 Order name: Salicylate; Complete Time: 14: [facility] 12/12 13:03 Order name: Urinalysis w/ reflexes; Complete Time: 14: [facility] 12/12 13:03 Order name: Urine Drug Screen; Complete Time: 14: [facility] 12/12 13:03 Order name: TSH; Complete Time: 14: [facility] 12/12 13:07 Order name: T3 Free; Complete Time: 14:05 [facility] 12/12 13:07 Order name: T4,Total; Complete Time: 14:05 [facility] 12/12 13:03 Order name: EKG - Nurse/Tech; Complete Time: 15:20 [facility] 12/12 13:03 Order name: IV Saline Lock; Complete Time: 15:20 [facility] 12/12 13:03 Order name: Labs collected and sent; Complete Time: 15:20 [facility] 12/12 13:03 Order name: Suicide Precautions; Complete Time: 15:20 [facility] 12/12 13:03 Order name: Suicide Screening ([place]); Complete Time: 15:20 [facility] Administered Medications: No medications were administered Disposition Summary: 12/12/23 14:06 Transfer Ordered Notes: Transfer Location: [place] [id number] Reason: Higher level of care [facility] Condition: Stable [facility] Problem: new [facility] Symptoms: are unchanged [facility] Accepting Physician: [facility]12/12/23 16:04) ph Diagnosis - Suicide attempt [facility] Forms: - Medication Reconciliation Form [facility] - SBAR form [facility] Signatures: Dispatcher [employer] Lisa Monterroso RN RN ph Renita Murrell, BINDER CASER BINDER CASER [facility] Corrections: (The following items were deleted from the chart) 16:04 14:06 accepting [place] [id number] ph
--- NOTE | 2023-12-12 14:07 | ER ---
Nurse's Notes [facility] Name: Chi Kelley Age: 53 yrs Sex: Male : 1970 Arrival Date: 12/12/2023 Time: 12:58 Bed 7 Private MD: Diagnosis: Suicide attempt Presentation: 12/12 13:07 Chief complaint: EMS states: called 911 stating that pt took unknown amount of her ph levothyroxine, when EMS arrived pt was actively cutting L wrist, lacerations are superficial, also stabbed himself multiple times to R thigh, also superficial. Pt states that he is suicidal, states, " I don't want to live anymore.'". Coronavirus screen: UNKNOWN. Ebola Screen: No symptoms or risks identified at this time. Initial Sepsis Screen: Does the patient meet any 2 criteria? No. Patient's initial sepsis screen is negative. Does the patient have a suspected source of infection? No. Patient's initial sepsis screen is negative. Risk Assessment: Do you want to hurt yourself or someone else?. Onset of symptoms was December 12, 2023. 13:07 Method Of Arrival: EMS: [facility] ph 13:07 Acuity: DORIAN 2 ph Triage Assessment: 13:05 General: Appears in no apparent distress. comfortable, Behavior is cooperative, flat. ph Historical: - Allergies: 13:14 Hydrocodone-Acetaminophen; ph - Home Meds: 13:14 mirtazapine 15 mg Oral tablet 1 tab every day at bedtime [Active]; olanzapine 15 mg ph Oral tablet 1 tab every day at bedtime [Active]; omeprazole 40 mg Oral capsule 1 cap daily [Active]; quetiapine 400 mg Oral tablet 1 tab every day at bedtime [Active]; sertraline 100 mg Oral tablet 2 tabs daily [Active]; - PMHx: 13:14 Anxiety; chronic back pain; Chronic obstructive lung disease; COPD; depressive ph disorder; Glaucoma; Hypothyroidism; Pre-Diabetes; - PSHx: 13:14 Cholecystectomy; ph - Immunization history:: Adult Immunizations unknown. - Social history:: Smoking status: Patient denies any tobacco usage or history of. Patient/guardian denies using alcohol, street drugs. Screenin:18 [facility] ED Fall Risk Assessment (Adult) History of falling in the last 3 months, ph including since admission Yes- single mechanical fall (1 pt) Confusion or Disorientation No (0 pts) Intoxicated or Sedated No (0 pts) Impaired Gait Yes (1 pt) Mobility Assist Device Used Yes (1 pt) Altered Elimination Yes (1 pt) Score/Fall Risk Level 3 or more points = High Risk Oriented to surroundings, Maintained a safe environment, Hourly rounding (assess needs \\T\\ fall precautionary measures) done, Used ambulatory aids as needed (educated on \\T\\ assisted with). Abuse screen: Denies threats or abuse. Denies injuries from another. Nutritional screening: No deficits noted. Tuberculosis screening: No symptoms or risk factors identified. Assessment: 13:30 General: Appears in no apparent distress. Behavior is cooperative, flat, quiet. Pain: ph Denies pain. Neuro: Level of Consciousness is awake, alert, obeys commands, Oriented to person, place, time, situation. Cardiovascular: Capillary refill < 3 seconds in bilateral fingers Patient's skin is warm and dry. Respiratory: Airway is patent Respiratory effort is even, unlabored, Respiratory pattern is regular, symmetrical. Derm: Skin is pink, warm \\T\\ dry. Injury Description: Abrasion sustained to dorsal aspect of left forearm. 14:56 Reassessment: Nurse to nurse given to Roxana at [facility]. Psych: 13:30 [place] Suicide Severity Screening: In the past month, have you wished you were ph or wished you could go to sleep and not wake up? Patient responds "yes." "In the past month, have you actually had any thoughts of killing yourself?" Patient responds "yes." "In your lifetime, have you ever done anything, started to do anything, or prepared to do anything to end your life?" Patient responds "yes.". Subjective: Patient's mood is sad, hopeless, Delusions are denied, Hallucinations are denied Having thoughts of suicide. Objective: Patient is cooperative, Speech is soft, Affect is flat, Patient has mutilated themselves by superficial lacerations to L forearm. Interventions: Removed personal items and placed in bag. Patient placed in hospital gown. Searched person for dangerous items. Urine collected and sent for urine drug test. Safety Checks: Personal items have been removed. Door is open. No visitors are present at this time. Pt denies substance abuse. Commitment: Patient will be a voluntary commitment. Overdose: 13:30 [place] Suicide Severity Screening: "In the past month, have you wished you were ph or wished you could go to sleep and not wake up?" Patient responds "yes." Based off client's responses, additional C-SSRS screening questions required. "In the past month, have you actually had any thoughts of killing yourself?" Patient responds "yes." Based off client's responses, additional C-SSRS screening questions required. "In your lifetime, have you ever done anything, started to do anything, or prepared to do anything to end your life?" Patient responds "yes." Patient reports suicidal intent within 3 past months. Vital Signs: 13:07 BP 128 / 85; Pulse 81; Resp 18; Temp 97.6; Pulse Ox 100% on R/A; Weight 86.18 kg; ph 15:30 BP 122 / 76; Pulse 76; Resp 18; Temp 97.2; Pulse Ox 98% on R/A; ph ED Course: 13:02 Patient arrived in ED. ph 13:02 Renita Murrell FNP is PHCP. jh7 13:02 Ian Rhoades MD is Attending Physician. jh7 13:14 Triage completed. ph 13:15 Arm band placed on Patient placed in an exam room. ph 13:15 Initial lab(s) drawn, by ED staff, sent to lab. EKG done. Inserted saline lock: 18 ph gauge in right forearm, using aseptic technique. Blood collected. 14:54 [id number] faxed to [facility] facility list. sp 14:56 Camery with [facility] accepted pt AZO \\T\\[id number] Luciano Garcia Doctor Johanny Bryan. sp 15:12 Lisa Nicholas, RN is Primary Nurse. ph 15:19 Patient has correct armband on for positive identification. Placed in gown. Bed in low ph position. Call light in reach. 15:22 called [facility] talked to Jasmina will take Transfer to [facility]. sp 16:00 No provider procedures requiring assistance completed. IV discontinued, intact, ph bleeding controlled, No redness/swelling at site. Pressure dressing applied. Administered Medications: No medications were administered Medication: 15:19 VIS not applicable for this client. ph Outcome: 14:06 ER care complete, transfer ordered by MD. jh7 16:04 Patient left the ED. ph 16:04 Transferred by ground [facility]. Note: [facility] ph 16:04 Condition: stable Signatures: Elida Montana Patricia, RN RN ph Cheri Diez, RN RN Renita Murrell, FIELD MARKETING DIRECTOR FIELD MARKETING DIRECTOR jh7
[2023-12-12 16:26] VITALS: BP 128/85; TEMP 97.6; O2SAT 100
== END ==
LOC: ER 12:58
DX: T38.1X2A Poisoning by thyroid hormones and substitutes, intentional self-harm, initial encounter (principal); F32.A Depression, unspecified; Z88.5 Allergy status to narcotic agent
CPT/HCPCS: 36415; 80048; 80076; 80143; 80179; 80307; 81001; 82077; 84436; 84443; 84481; 85025; 85610; 85730; 99285

== ENCOUNTER → 2024-01-03 | Emergency (ER) | payer OTHER ==
[~2024-01-03] MED LIST: FAMOTIDINE 20 MG/2 ML VIAL IV ONE; FENTANYL CITR 100 MCG/2 ML ONE; NA CHLORIDE 0.9% 1,000 ML ONE; ONDANSETRON 4 MG/2 ML VIAL ONE; PANTOPRAZOLE 40 MG INJ ONE
[2024-01-03 03:55] LABS: Absolute Basophils 0.1 K/uL (0-0.5); Absolute Eosinophils 0.3 K/uL (0-0.5); Absolute Lymphocytes (CBC) 3.2 K/uL (0.7-4.9); Absolute Monocytes 0.8 K/uL (0.1-1.3); Absolute Neutrophil 5.3 K/uL (1.8-8.0); Basophils % 0.7 % (0-1.3); Eosinophils % 3.1 % (0-4.4); Hematocrit 39.3 % (39.6-49.0); Hemoglobin 13.4 g/dL (13.6-17.9); MCH 30.9 pg (27.0-35.0); MCHC 34.1 g/dL (32.0-36.0); MCV 90.6 fL (80-100); Monocytes % 8.1 % (3.3-12.3); Neutrophils % 55.1 % (41.7-73.7); Platelets 200 thou/uL (152-406); RBC Red Blood Cell Count 4.34 M/uL (4.33-5.43); Red Cell Distribution Width 13.5 % (12.1-15.2)
[2024-01-03 04:02] LABS: Albumin 3.4 g/dL (3.4-5.0); Albumin/Globulin Ratio 0.9 (1.1-1.8); Anion Gap 11.6 mEq/L (5.0-15.0); Bilirubin Total 0.3 mg/dL (0.2-1.0); Globulin 3.6 g/dL (2.3-3.5); Potassium 3.6 mEq/L (3.5-5.1)
--- NOTE | 2024-01-03 06:43 | ER ---
Nurse's Notes [facility] Name: Chi Kelley Age: 53 yrs Sex: Male : 1970 Arrival Date: 01/03/2024 Time: 02:06 Bed 10 Private MD: Diagnosis: Acute gastritis Presentation: 01/02 02:15 Chief complaint: Patient states: I am having abdominal pain, feel bloated, and have a jb4 burning sensation in my esophagus. It feels like its coming up when I lay down, there is mucus coming up into my mouth and nose. Coronavirus screen: At this time, the client does not indicate any symptoms associated with coronavirus-19. Ebola Screen: No symptoms or risks identified at this time. Initial Sepsis Screen: Does the patient meet any 2 criteria? No. Patient's initial sepsis screen is negative. Does the patient have a suspected source of infection? No. Patient's initial sepsis screen is negative. Risk Assessment: Do you want to hurt yourself or someone else? Patient reports no desire to harm self or others. Onset of symptoms was January 03, 2024. Transition of care: patient was not received from another setting of care. 02:15 Method Of Arrival: Ambulatory jb4 02:15 Acuity: DORIAN 3 jb4 Triage Assessment: 02:17 General: Appears in no apparent distress. uncomfortable, Behavior is calm, cooperative, jb4 appropriate for age. Pain: Complains of pain in abdomen Pain radiates to back Pain currently is 10 out of 10 on a pain scale. EENT: No signs and/or symptoms were reported regarding the EENT system. Neuro: Level of Consciousness is awake, alert, obeys commands, Oriented to person, place, time, situation. Cardiovascular: Patient's skin is warm and dry. Respiratory: Airway is patent Respiratory effort is even, unlabored, Respiratory pattern is regular, symmetrical. GI: Abdomen is distended, obese, Reports nausea, vomiting. : No signs and/or symptoms were reported regarding the genitourinary system. Derm: Skin is intact, Skin is pink, warm \T\ dry. Musculoskeletal: Circulation, motion, and sensation intact. Range of motion: intact in all extremities. Historical: - Allergies: 02:17 Hydrocodone-Acetaminophen; jb4 02:17 cats; jb4 - PMHx: 02:17 Anxiety; chronic back pain; Chronic obstructive lung disease; COPD; depressive jb4 disorder; Glaucoma; Hypothyroidism; Pre-Diabetes; - PSHx: 02:17 Cholecystectomy; jb4 - Immunization history:: Adult Immunizations up to date. - Social history:: Smoking status: Patient reports the use of cigarette tobacco products, smokes one-half pack cigarettes per day. Screenin:21 [facility] ED Fall Risk Assessment (Adult) History of falling in the last 3 months, jb4 including since admission No falls in past 3 months (0 pts) Confusion or Disorientation No (0 pts) Intoxicated or Sedated No (0 pts) Impaired Gait No (0 pts) Mobility Assist Device Used No (0 pt) Altered Elimination No (0 pt) Score/Fall Risk Level 0 - 2 = Low Risk Oriented to surroundings, Maintained a safe environment. Abuse screen: Denies threats or abuse. Nutritional screening: No deficits noted. Tuberculosis screening: No symptoms or risk factors identified. Assessment: 05:23 Reassessment: Patient appears in no apparent distress at this time. Patient and/or jb4 family updated on plan of care and expected duration. Pain level reassessed. Patient is alert, oriented x 3, equal unlabored respirations, skin warm/dry/pink. 07:21 Reassessment: Patient appears in no apparent distress at this time. Patient and/or jb4 family updated on plan of care and expected duration. Pain level reassessed. Patient is alert, oriented x 3, equal unlabored respirations, skin warm/dry/pink. Vital Signs: 02:15 BP 133 / 76; Pulse 90; Resp 16; Temp 97.3(TE); Pulse Ox 98% on R/A; Weight 88.45 kg jb4 (R); Height 5 ft. 9 in. (R); Pain 10/10; 05:23 BP 115 / 90; Pulse 70; Resp 16; Pulse Ox 97% on R/A; jb4 02:15 Body Mass Index 28.80 (88.45 kg, 175.26 cm) jb4 02:15 Pain Scale: Adult jb4 ED Course: 02:10 Patient arrived in ED. jj6 02:17 Triage completed. jb4 02:17 Arm band placed on right wrist. jb4 02:27 Bertrand Carranza is Attending Physician. ci 03:25 Initial lab(s) drawn, by , sent to lab. Inserted saline lock: 22 gauge in right ty antecubital area, using aseptic technique. Missed attempt(s): 22 gauge in right forearm. Bleeding controlled, band aid applied, catheter tip intact. 04:05 CT Abd/Pelvis - IV Contrast Only In Process Unspecified. EDMS 04:46 Dashawn Salinas, RN is Primary Nurse. jb4 07:21 Patient has correct armband on for positive identification. Bed in low position. Call jb4 light in reach. Side rails up X 1. Provided Education on: Discharge instructions. 07:21 No provider procedures requiring assistance completed. IV discontinued, intact, jb4 bleeding controlled, No redness/swelling at site. Pressure dressing applied. Administered Medications: 03:29 Drug: NS 0.9% IV 1000 ml IV at 1 bolus Per protocol; 1000 mL bolus Route: IV; Rate: 1 jb4 bolus; Site: right antecubital; 05:26 Follow up: Response: No adverse reaction; IV Status: Completed infusion; IV Intake: jb4 1000ml 03:29 Drug: Famotidine IVP 20 mg IVP once; dilute with 10 mL 0.9% NaCl; give over 2 minutes jb4 Route: IVP; Site: right antecubital; 05:26 Follow up: Response: No adverse reaction; Marked relief of symptoms jb4 03:29 Drug: Ondansetron IVP 4 mg IVP once; over 2 minutes Route: IVP; Site: right antecubital;jb4 05:26 Follow up: Response: No adverse reaction; Marked relief of symptoms jb4 05:58 Drug: Pantoprazole IVP 40 mg IVP once Route: IVP; Site: right antecubital; jb4 05:58 Drug: fentaNYL (PF) IVP 50 mcg IVP once Route: IVP; Site: right antecubital; jb4 Medication: 07:21 VIS not applicable for this client. jb4 Intake: 05:26 IV: 1000ml; Total: 1000ml. jb4 Outcome: 06:43 Discharge ordered by . ci 07:21 Discharged to home ambulatory, jb4 07:21 Condition: stable 07:21 Discharge instructions given to patient, Instructed on discharge instructions, follow up and referral plans. medication usage, Demonstrated understanding of instructions, follow-up care, medications, Prescriptions given X 1, 07:22 Patient left the ED. jb4 Signatures: Dispatcher [facility] Dashawn Gongora, MELINA RN jb4 Renita Gilliland jj6 IheonunekwuBertrand Tylor ty
--- NOTE | 2024-01-03 06:43 | EDPHYS ---
Physician Documentation [facility] Name: Chi Kelley Age: 53 yrs Sex: Male : 1970 Arrival Date: 01/03/2024 Time: 02:06 Bed 10 Private MD: ED Physician Bertrand Carranza HPI: 01/02 06:39 This 53 yrs old Male presents to ER via Ambulatory with complaints of Epigastric Pain, ci Abdominal Pain. 06:39 This 53 yrs old Male presents to ER via Ambulatory with complaints of Epigastric Pain, ci Abdominal Pain. 06:39 Patient is a 53-year-old male with PMH anxiety, COPD, depression who presents with ci epigastric abdominal pain that began a few weeks ago, worse since last night. Pain is burning,, feels like there is acid going up to his stomach. Patient also feels like he is bloated. Has a history of GERD but not taking any of his medications because he ran out.. Historical: - Allergies: 02:17 Hydrocodone-Acetaminophen; jb4 02:17 cats; jb4 - PMHx: 02:17 Anxiety; chronic back pain; Chronic obstructive lung disease; COPD; depressive jb4 disorder; Glaucoma; Hypothyroidism; Pre-Diabetes; - PSHx: 02:17 Cholecystectomy; jb4 - Immunization history:: Adult Immunizations up to date. - Social history:: Smoking status: Patient reports the use of cigarette tobacco products, smokes one-half pack cigarettes per day. ROS: 06:39 Abdomen/GI: Positive for abdominal pain, nausea and vomiting, ci Exam: 06:39 Constitutional: This is a well developed, well nourished patient who is awake, alert, ci and in no acute distress. Head/Face: Normocephalic, atraumatic. Eyes: Pupils equal round and reactive to light, extra-ocular motions intact. Lids and lashes normal. Conjunctiva and sclera are non-icteric and not injected. Cornea within normal limits. Periorbital areas with no swelling, redness, or edema. ENT: Nares patent. No nasal discharge, no septal abnormalities noted. Tympanic membranes are normal and external auditory canals are clear. Oropharynx with no redness, swelling, or masses, exudates, or evidence of obstruction, uvula midline. Mucous membranes moist. Neck: Trachea midline, no thyromegaly or masses palpated, and no cervical lymphadenopathy. Supple, full range of motion without nuchal rigidity, or vertebral point tenderness. No Meningismus. Chest/axilla: Normal chest wall appearance and motion. Nontender with no deformity. No lesions are appreciated. Cardiovascular: Regular rate and rhythm with a normal S1 and S2. No gallops, murmurs, or rubs. Normal PMI, no JVD. No pulse deficits. Respiratory: Lungs have equal breath sounds bilaterally, clear to auscultation and percussion. No rales, rhonchi or wheezes noted. No increased work of breathing, no retractions or nasal flaring. Abdomen/GI: Soft, non-tender, with normal bowel sounds. No distension or tympany. No guarding or rebound. No evidence of tenderness throughout. Back: No spinal tenderness. No costovertebral tenderness. Full range of motion. Skin: Warm, dry with normal turgor. Normal color with no rashes, no lesions, and no evidence of cellulitis. MS/ Extremity: Pulses equal, no cyanosis. Neurovascular intact. Full, normal range of motion. Neuro: Awake and alert, GCS 15, oriented to person, place, time, and situation. Cranial nerves II-XII grossly intact. Motor strength 5/5 in all extremities. Sensory grossly intact. Cerebellar exam normal. Normal gait. Psych: Awake, alert, with orientation to person, place and time. Behavior, mood, and affect are within normal limits. Vital Signs: 02:15 BP 133 / 76; Pulse 90; Resp 16; Temp 97.3(TE); Pulse Ox 98% on R/A; Weight 88.45 kg jb4 (R); Height 5 ft. 9 in. (R); Pain 10/10; 05:23 BP 115 / 90; Pulse 70; Resp 16; Pulse Ox 97% on R/A; jb4 02:15 Body Mass Index 28.80 (88.45 kg, 175.26 cm) 4 02:15 Pain Scale: Adult jb4 MDM: 02:27 Patient medically screened. ci 06:39 Differential Diagnosis Gastritis, GERD, cholecystitis, pancreatitis, SBO. Data ci reviewed: vital signs, nurses notes. ED course: CT with questionable gastritis. No SBO. Stable for discharge with prescription for Protonix and GI referral.. 01/02 03:02 Order name: CBC with Diff; Complete Time: 04:14 jb4 01/02 03:02 Order name: CMP; Complete Time: 04:14 jb4 01/02 03:02 Order name: Lipase; Complete Time: 04:14 jb4 01/02 03:07 Order name: CT Abd/Pelvis - IV Contrast Only ci 01/02 03:02 Order name: IV Saline Lock; Complete Time: 03:30 jb4 01/02 03:02 Order name: Labs collected and sent; Complete Time: 03:30 jb4 Administered Medications: 03:29 Drug: NS 0.9% IV 1000 ml IV at 1 bolus Per protocol; 1000 mL bolus Route: IV; Rate: 1 jb4 bolus; Site: right antecubital; 05:26 Follow up: Response: No adverse reaction; IV Status: Completed infusion; IV Intake: jb4 1000ml 03:29 Drug: Famotidine IVP 20 mg IVP once; dilute with 10 mL 0.9% NaCl; give over 2 minutes jb4 Route: IVP; Site: right antecubital; 05:26 Follow up: Response: No adverse reaction; Marked relief of symptoms jb4 03:29 Drug: Ondansetron IVP 4 mg IVP once; over 2 minutes Route: IVP; Site: right antecubital;jb4 05:26 Follow up: Response: No adverse reaction; Marked relief of symptoms jb4 05:58 Drug: Pantoprazole IVP 40 mg IVP once Route: IVP; Site: right antecubital; jb4 05:58 Drug: fentaNYL (PF) IVP 50 mcg IVP once Route: IVP; Site: right antecubital; jb4 Disposition Summary: 01/03/24 06:43 Discharge Ordered Notes: Location: Home ci Condition: Stable ci Diagnosis - Acute gastritis ci Followup: ci - With: Private Physician - When: 2 - 3 days - Reason: Recheck today's complaints, Re-evaluation by your physician Discharge Instructions: - Discharge Summary Sheet ci - Gastritis, Adult, [id number] ci - Abdominal Pain, Adult, [id number] ci Forms: - Medication Reconciliation Form ci - Thank You Letter ci - Antibiotic Education ci - Prescription Opioid Use ci - Patient Portal Instructions ci - Leadership Thank You Letter ci Prescriptions: - Protonix 40 mg Oral Tablet - take 1 tablet ORAL route once daily; 30 tablet; Refills: 0, Product Selection ci Permitted Signatures: [facility] Dashawn Gongora, RN RN jb4 IheonunekwuBertrand
[2024-01-03 07:57] VITALS: BP 115/90; TEMP 97.3; O2SAT 97
--- NOTE | 2024-01-03 12:46 | RAD REPORT ---
EXAM DESCRIPTION: CT - Abdomen Pelvis W Contrast - 01/03/2024 6:39 am RadLex: CT ABDOMEN PELVIS WITH IV CONTRAST CLINICAL HISTORY: 53 years Male; ABD PAIN, VOMITING; IV ONLY Bed Name: 10 TECHNIQUE: CT of the abdomen and pelvis with intravenous contrast. All CT scans at this facility use dose modulation, iterative reconstruction, and/or weight based dosi ng when appropriate to reduce radiation dose to as low as reasonably achievable. COMPARISON: CT abdomen pelvis 06/01/2023 FINDINGS: Lower thorax: Bibasilar atelectasis. Abdomen: Stomach: Questionable mild distal gastric wall thickening. Liver: No focal lesions. Enlarged. Hepatic steatosis. No intrahepatic ductal distention. Gallbladder: Surgically absent. Pancreas: Within normal limits Spleen: Within normal limits Right kidney: No hydronephrosis. 2 mm renal stone. Left kidney: No hydronephrosis. 2 mm renal stone. Adrenal glands: Within normal limits Vascular structures: Mild atherosclerosis of the abdominal aorta and major branches. Nodes: No lymphadenopathy by size criteria Pelvis: Small bowel: No significant distention. Appendix: Within normal limits Colon: No distention or acute pericolonic edema. Peritoneum: No free intraperitoneal fluid or air. Bones: No acute bone findings. Bladder: Unremarkable. Reproductive organs: No acute findings. Soft tissues: Surgical clips in the left inguinal region, likely secondary to hernia repair. IMPRESSION: 1. Questionable mild distal gastric wall thickening, can be seen in setting of gastrit is. Otherwise no acute abdominopelvic findings. 2. Hepatomegaly with hepatic steatosis. 3. Bilateral nephrolithiasis. No hydronephrosis. Electronically signed by: Ben Hylton MD 01/03/2024 05:51 AM CDT Due to temporary technical issues with the PACS/Fluency reporting system, reports are being signed by the in house radiologist without review as a courtesy to ensure prompt reporting. The interpreting r adiologist is fully responsible for the content of the report.
== END ==
LOC: ER 02:06
DX: K29.00 Acute gastritis without bleeding (principal); F17.210 Nicotine dependence, cigarettes, uncomplicated; Z88.5 Allergy status to narcotic agent
CPT/HCPCS: 85025; 36415; 83690; 80053; 74177; Q9967; C9113; J3010; J2405; J7030; 96361; 96374; 96375; 99284

== ENCOUNTER 2024-02-04 20:02 | Emergency (ER) | payer OTHER ==
[2024-02-04 20:39] LABS: Absolute Basophils 0.1 K/uL (0-0.5); Absolute Eosinophils 0.2 K/uL (0-0.5); Absolute Lymphocytes (CBC) 2.8 K/uL (0.7-4.9); Absolute Monocytes 0.5 K/uL (0.1-1.3); Absolute Neutrophil 4.3 K/uL (1.8-8.0); Basophils % 0.8 % (0-1.3); Eosinophils % 2.5 % (0-4.4); Hematocrit 38.9 % (39.6-49.0); Hemoglobin 13.1 g/dL (13.6-17.9); Lymphocytes % 35.6 % (15.3-44.8); MCH 30.7 pg (27.0-35.0); MCHC 33.8 g/dL (32.0-36.0); MCV 90.9 fL (80-100); MPV 9.3 fL (7.6-11.3); Monocytes % 6.2 % (3.3-12.3); Neutrophils % 54.9 % (41.7-73.7); Platelets 188 thou/uL (152-406); RBC Red Blood Cell Count 4.28 M/uL (4.33-5.43); Red Cell Distribution Width 13.2 % (12.1-15.2)
[2024-02-04 20:43] LABS: Specific Gravity 1.029 (1.005-1.030); Sqamous Epithelial None Seen /HPF (None Seen); Urine Bacteria None Seen /HPF (<20); Urine Bilirubin NEGATIVE (Negative); Urine Blood Negative (Negative); Urine Clarity Clear (Clear); Urine Color Colorless (Yellow); Urine Culture Reflex Order NOT NEEDED; Urine Glucose 4+ (Over) (Negative); Urine Ketones NEGATIVE (Negative); Urine Micro Reflex YN NO BILL MICROSCOPIC; Urine Mucus Slight /HPF (None Seen); Urine Nitrite NEGATIVE (Negative); Urine Protein NEGATIVE (Negative); Urine RBC <5 /HPF (None Seen); Urine Urobilinogen Normal (Normal); Urine WBC <5 /HPF (<5); Urine pH 5.5 (5.0-7.0)
--- NOTE | 2024-02-04 20:50 | RAD REPORT ---
EXAM DESCRIPTION: Sylwia Single View02/04/2024 8:34 pm CLINICAL HISTORY: Cough COMPARISON: 2022 FINDINGS: The lungs appear clear of acute infiltrate. The heart is normal size IMPRESSION: No acute abnormalities displayed
[2024-02-04 21:05] LABS: Anion Gap 9.7 mEq/L (5.0-15.0); BUN Blood Urea Nitrogen 16 mg/dL (7-18); Bicarbonate 26 mEq/L (21-32); Glomerular Filtration Rate 70 ml/min (=/>90); Potassium 3.7 mEq/L (3.5-5.1); Sodium Level 134 mEq/L (136-145)
[2024-02-04 21:10] LABS: Troponin High Sensitivity < 3.0 pg/mL (<58.9)
[2024-02-04 21:13] LABS: Glucose Level 436 mg/dL (74-106)
--- NOTE | 2024-02-04 21:44 | EDPHYS ---
Physician Documentation [facility] Name: Chi Kelley Age: 53 yrs Sex: Male : 1970 Arrival Date: 02/04/2024 Time: 20:02 Bed 19 Private MD: ED Physician Johnathon Mckenzie HPI: 02/03 20:11 This 53 yrs old Male presents to ER via EMS with complaints of High Blood ec2 Sugar. 20:11 Patient arrives today for elevated blood sugars. Patient has poor primary care ec2 follow-up, I recently saw him last week, had elevated blood sugars, start him on metformin, states that he has been feeling generally weak and dizzy, states that he also has a chronic cough. Reports history of COPD. No inhaler use. Patient reports no fevers or chills, no nausea or vomiting or diarrhea. Patient reports no urinary complaints.. Historical: - Allergies: 20:05 cats; me1 20:05 Hydrocodone-Acetaminophen; me1 20:05 Vicodin; me1 - PMHx: 20:05 Anxiety; chronic back pain; Chronic obstructive lung disease; COPD; depressive me1 disorder; Glaucoma; Hypothyroidism; Pre-Diabetes; - PSHx: 20:05 Cholecystectomy; me1 - Immunization history:: Adult Immunizations up to date. - Infectious Disease History:: Denies. - Social history:: Smoking status: Patient reports the use of cigarette tobacco products, smokes one-half pack cigarettes per day. ROS: 20:11 Constitutional: as per hpi ec2 Exam: 20:11 Constitutional: GEN: NAD Head: atraumatic Eyes: EOMI Ears: External ears are ec2 normal. CV: regular rate LUNGS: no respiratory distress ABD: non-distended SKIN: no evidence of rashes MSK: no evidence of trauma NEURO: moves all extremities equally Vital Signs: 20:04 BP 140 / 87; Pulse 89; Resp 18; Temp 98.1; Pulse Ox 94% on R/A; Weight 90.72 kg; Height me1 5 ft. 9 in. ; Pain 0/10; 21:00 BP 111 / 71; Pulse 87; Resp 16; Pulse Ox 99% on R/A; me1 21:50 BP 119 / 82; Pulse 81; Resp 16; Temp 98.4; Pulse Ox 97% ; me1 20:04 Body Mass Index 29.53 (90.72 kg, 175.26 cm) me1 20:04 Pain Scale: Adult me1 MDM: 20:06 Patient medically screened. ec2 20:11 Data reviewed: vital signs, nurses notes. ED course: Patient arrives today for ec2 dizziness. Examination remarkable well-appearing nontoxic individual is otherwise in no acute distress with a reassuring examination. Will obtain lab work, urine studies, chest x-ray to evaluate for underlying process such as viral infection, electrolyte disturbances, anemia, dehydration. COVID patient crystalloid as well for the reported hyperglycemia.. 20:29 ED course: EKG independently reviewed and interpreted by me, shows normal sinus rhythm, ec2 rate of 80, no acute ST segment elevations, intervals are nonconcerning.. 20:53 ED course: Chest x-ray shows no acute intrathoracic process. Urine is noninfectious ec2 appearing does have glucose noted.. 21:19 ED course: Metabolic profile shows hyperglycemia with a sugar of 436. Troponin is ec2 undetectable. . 21:41 ED course: Ultimately patient with elevated blood sugars likely secondary to ec2 undiagnosed diabetes however pt w/ no diabetic emergency necessitating inpatient hospitalization. I will increase the patient's metformin, I will instruct him on going from 500 twice daily to thousand twice daily. Patient discharged home and I stressed importance of establishing with primary care. Return precautions given.. 02/03 20:11 Order name: Basic Metabolic Panel; Complete Time: 21:19 ec2 02/03 20:11 Order name: CBC with Diff; Complete Time: 20:53 ec2 02/03 20:11 Order name: Troponin HS; Complete Time: 21:19 ec2 02/03 20:11 Order name: UAM; Complete Time: 20:53 ec2 02/03 21:46 Order name: Glucose, Ancillary Testing; Complete Time: 21:47 EDMS 02/03 20:11 Order name: XRAY Chest (1 view); Complete Time: 20:53 ec2 02/03 20:11 Order name: Cardiac monitoring; Complete Time: 20:31 ec2 02/03 20:11 Order name: EKG - Nurse/Tech; Complete Time: 20:30 ec2 02/03 20:11 Order name: IV Saline Lock; Complete Time: 20:30 ec2 02/03 20:11 Order name: Labs collected and sent; Complete Time: 20:30 ec2 02/03 20:11 Order name: O2 Per Protocol; Complete Time: 20:29 ec2 02/03 20:11 Order name: O2 Sat Monitoring; Complete Time: 20:29 ec2 02/03 21:28 Order name: Accucheck Blood Glucose; Complete Time: 21:33 ec2 Administered Medications: 20:29 Drug: NS 0.9% IV 2000 ml IV at 1 bolus Per protocol; 1000 mL bolus Route: IV; Rate: 1 me1 bolus; Site: right antecubital; 21:30 Follow up: Response: No adverse reaction; IV Status: Completed infusion; IV Intake: me1 1000ml Point of Care Testing: Blood Glucose: 21:33 Blood Glucose: 383 mg/dL; me1 Ranges: Critical Glucose Levels:Adult <50 mg/dl or >400 mg/dl <40 mg/dl or >180 mg/dl Disposition Summary: 02/04/24 21:43 Discharge Ordered Notes: Location: Home ec2 Condition: Stable ec2 Diagnosis - Hyperglycemia, unspecified ec2 Followup: ec2 - With: Private Physician - When: - Reason: Re-evaluation by your physician Discharge Instructions: - Discharge Summary Sheet ec2 - Carbohydrate Counting for Diabetes Mellitus, Adult ec2 - Hyperglycemia, [id number] ec2 Forms: - Medication Reconciliation Form ec2 - Thank You Letter ec2 - Antibiotic Education ec2 - Prescription Opioid Use ec2 - Patient Portal Instructions ec2 - Leadership Thank You Letter ec2 Prescriptions: - metformin 500 mg Oral tablet - take 2 tablet ORAL route 2 times per day; 60 tablet; Refills: 0, Product ec2 Selection Permitted Signatures: Dispatcher [employer] Susanna Savage RN RN wi1 Johnathon Mckenzie MD MD ec2 Corrections: (The following items were deleted from the chart) 20:11 20:11 Chest Single View+[email or web address] ordered. GUSTAVO CHEN
--- NOTE | 2024-02-04 21:44 | ER ---
Nurse's Notes [facility] Name: Chi Kelley Age: 53 yrs Sex: Male : 1970 Arrival Date: 02/04/2024 Time: 20:02 Bed 19 Private MD: Diagnosis: Hyperglycemia, unspecified Presentation: 02/03 20:04 Chief complaint: EMS states: toned out for high blood sugar. Coronavirus screen: me1 Vaccine status: Patient reports receiving the 2nd dose of the covid vaccine. Ebola Screen: No symptoms or risks identified at this time. Initial Sepsis Screen: Does the patient meet any 2 criteria? No. Patient's initial sepsis screen is negative. Does the patient have a suspected source of infection? No. Patient's initial sepsis screen is negative. Risk Assessment: Do you want to hurt yourself or someone else? Patient reports no desire to harm self or others. Onset of symptoms was February 03, 2024. 20:04 Method Of Arrival: EMS: [facility] 20:04 Acuity: DORIAN 3 me1 20:09 Care prior to arrival: Medication(s) given: Normal saline infusion, 500 mL, IV me1 initiated. 20 GA, in the right antecubital area, Glucose check: 436. Triage Assessment: 20:05 General: Appears comfortable, unkempt, well developed, well nourished, Behavior is me1 calm, cooperative, appropriate for age, Reports dizziness and unsteady gait that started yesterday. Blood sugar has been high since yesterday per patient. BGL per EMS 436. Pain: Denies pain. Neuro: Level of Consciousness is awake, alert, obeys commands, Oriented to person, place, time, situation, Appropriate for age. Cardiovascular: Capillary refill < 3 seconds Patient's skin is warm and dry. Respiratory: Airway is patent Trachea midline Respiratory effort is even, unlabored, Respiratory pattern is regular, symmetrical. GI: No signs and/or symptoms were reported involving the gastrointestinal system. : No signs and/or symptoms were reported regarding the genitourinary system. Derm: Skin is intact, Skin is pink, warm \T\ dry. Musculoskeletal: No signs and/or symptoms reported regarding the musculoskeletal system. Historical: - Allergies: 20:05 cats; me1 20:05 Hydrocodone-Acetaminophen; me1 20:05 Vicodin; me1 - PMHx: 20:05 Anxiety; chronic back pain; Chronic obstructive lung disease; COPD; depressive me1 disorder; Glaucoma; Hypothyroidism; Pre-Diabetes; - PSHx: 20:05 Cholecystectomy; me1 - Immunization history:: Adult Immunizations up to date. - Infectious Disease History:: Denies. - Social history:: Smoking status: Patient reports the use of cigarette tobacco products, smokes one-half pack cigarettes per day. Screenin:07 [facility] ED Fall Risk Assessment (Adult) History of falling in the last 3 months, me1 including since admission No falls in past 3 months (0 pts) Confusion or Disorientation No (0 pts) Intoxicated or Sedated No (0 pts) Impaired Gait No (0 pts) Mobility Assist Device Used No (0 pt) Altered Elimination No (0 pt) Score/Fall Risk Level 0 - 2 = Low Risk Maintained a safe environment, Provided non-skid footwear, Hourly rounding (assess needs \T\ fall precautionary measures) done. Abuse screen: Denies threats or abuse. Nutritional screening: No deficits noted. Tuberculosis screening: No symptoms or risk factors identified. Assessment: 20:07 General: See triage assessment. . me1 Vital Signs: 20:04 BP 140 / 87; Pulse 89; Resp 18; Temp 98.1; Pulse Ox 94% on R/A; Weight 90.72 kg; Height me1 5 ft. 9 in. ; Pain 0/10; 21:00 BP 111 / 71; Pulse 87; Resp 16; Pulse Ox 99% on R/A; me1 21:50 BP 119 / 82; Pulse 81; Resp 16; Temp 98.4; Pulse Ox 97% ; me1 20:04 Body Mass Index 29.53 (90.72 kg, 175.26 cm) me1 20:04 Pain Scale: Adult me1 ED Course: 20:03 Patient arrived in ED. me1 20:04 Johnathon Mckenzie MD is Attending Physician. ec2 20:05 Triage completed. me1 20:05 Arm band placed on Patient placed in an exam room. me1 20:05 Client placed on continuous cardiac and pulse oximetry monitoring. NIBP monitoring me1 applied. manager of hospital on. Pulse ox on. NIBP on. 20:07 Patient has correct armband on for positive identification. Bed in low position. Call me1 light in reach. Side rails up X2. Provided Education on: POC. Verbalized understanding. . 20:07 No provider procedures requiring assistance completed. Maintain EMS IV. Dressing me1 intact. Good blood return noted. Site clean \T\ dry. Gauge \T\ site: 20g RAC. 20:28 Susanna Rogers, RN is Primary Nurse. me1 20:30 Basic Metabolic Panel Sent. rv1 20:30 CBC with Diff Sent. rv1 20:30 Troponin HS Sent. rv1 20:30 UAM Sent. rv1 20:31 Initial lab(s) drawn, by ED staff, sent to lab. EKG done, by ED staff, reviewed by nv1 Johnathon Mckenzie MD. 20:32 Urine collected: clean catch specimen, cloudy. me1 20:36 XRAY Chest (1 view) In Process Unspecified. EDMS 21:12 Notified ED physician of a critical lab result(s). glucose 436. [facility] 21:57 IV discontinued, intact, bleeding controlled, No redness/swelling at site. Pressure me1 dressing applied. Administered Medications: 20:29 Drug: NS 0.9% IV 2000 ml IV at 1 bolus Per protocol; 1000 mL bolus Route: IV; Rate: 1 me1 bolus; Site: right antecubital; 21:30 Follow up: Response: No adverse reaction; IV Status: Completed infusion; IV Intake: me1 1000ml Medication: 20:07 VIS not applicable for this client. nv1 Point of Care Testing: Blood Glucose: 21:33 Blood Glucose: 383 mg/dL; nv1 Ranges: Intake: 21:30 IV: 1000ml; Total: 1000ml. me1 Outcome: 21:43 Discharge ordered by . ec2 21:57 Discharged to home ambulatory, with family, me1 21:57 Condition: stable 21:57 Discharge instructions given to patient, family, Instructed on discharge instructions, follow up and referral plans. medication usage, Demonstrated understanding of instructions, follow-up care, medications, Prescriptions given X 1, 21:57 Patient left the ED. me1 Signatures: Dispatcher [employer] EDMS Colleen Rudolph RN RN mb9 Polina Gregg 1 Susanna Rogers, RN RN [facility] [place] Johnathon Mckenzie MD MD ec2
[2024-02-04 22:34] VITALS: BP 119/82; TEMP 98.4; O2SAT 97
== END 2024-02-04 21:57 | disposition home or self-care (01) ==
LOC: ER 20:02
DX: R73.9 Hyperglycemia, unspecified (principal); J44.9 Chronic obstructive pulmonary disease, unspecified; J30.81 Allergic rhinitis due to animal (cat) (dog) hair and dander; Z88.5 Allergy status to narcotic agent
CPT/HCPCS: 36415; 71045; 80048; 81001; 82947; 84484; 85025; 93005; 96360; 99285

== ENCOUNTER 2024-03-12 21:42 | Emergency (ER) | payer OTHER ==
[2024-03-12] MEDS ORDERED: ONDANSETRON 4 MG/2 ML VIAL ONE (22:10)
[2024-03-12] MEDS ORDERED: MORPHINE 4 MG/ML SYR ONE (22:10)
--- NOTE | 2024-03-12 22:35 | RAD REPORT ---
EXAM DESCRIPTION: RAD - Chest Single View - 03/12/2024 10:29 pm CLINICAL HISTORY: BLUNT CHEST TRAUMA COMPARISON: 03/08/2024 FINDINGS: Lines: None. Lungs: No evidence of edema or pneumonia. Pleural: No significant pleural effusions or pneumothorax. Cardiac: The heart size is within normal limits. Mediastinum: Within normal limits. Bones: No acute fractures. Other: None IMPRESSION: No acute cardiopulmonary disease.
--- NOTE | 2024-03-12 22:38 | RAD REPORT ---
EXAM DESCRIPTION: RAD - Ribs Right - 03/12/2024 10:29 pm CLINICAL HISTORY: BLUNT CHEST TRAUMA COMPARISON: <Comparisons> FINDINGS/IMPRESSION: Minimally displaced right anterolateral fifth rib fracture. Mild angulation of the right anterolateral eighth rib could represent age indeterminate rib fracture the dislocation as well. Nondisplaced rib fractures may not be apparent on conventional radiography. No pneumothorax.
--- NOTE | 2024-03-12 23:24 | EDPHYS ---
Physician Documentation [facility] Name: Chi Kelley Age: 54 yrs Sex: Male : 1970 Arrival Date: 03/12/2024 Time: 21:42 Bed 4 Private MD: ED Physician Johnathon Mckenzie HPI: 03/12 23:22 This 54 yrs old Male presents to ER via EMS with complaints of Rib Pain. kb 23:22 Patient is a 54-year-old male who was getting out of his bathtub when he fell hitting kb right lateral ribs on the bathtub. Reports pain to right lateral ribs that is worse with movement, palpation and cough. Denies any other injury. Denies hitting head, LOC.. Historical: - Allergies: 22:28 cats; jb4 22:28 Hydrocodone-Acetaminophen; jb4 22:28 Vicodin; jb4 - PMHx: 22:28 Bipolar disorder; chronic back pain; Chronic obstructive lung disease; COPD; depressive jb4 disorder; Glaucoma; Hypothyroidism; Anxiety; Pre-Diabetes; - PSHx: 22:28 Cholecystectomy; jb4 - Immunization history:: Adult Immunizations up to date. - Infectious Disease History:: Denies. - Social history:: Smoking status: Patient reports the use of cigarette tobacco products, smokes one-half pack cigarettes per day. ROS: 23:21 Constitutional: As per HPI kb Exam: 23:21 Constitutional: This is a well developed, well nourished patient who is awake, alert, kb and in no acute distress. Head/Face: Normocephalic, atraumatic. ENT: Moist Mucous membranes Cardiovascular: Regular rate Respiratory: Respirations even and unlabored. No increased work of breathing. Talking in full sentences Abdomen/GI: Soft, non-tender. No distention Skin: Warm, dry with normal turgor. Normal color. MS/ Extremity: Pulses equal, no cyanosis. Neurovascular intact. Full, normal range of motion. Neuro: Awake and alert, GCS 15, oriented to person, place, time, and situation. Moves all extremities. Normal gait. 23:21 Chest/axilla: Palpation: tenderness, that is moderate, of the right lateral anterior chest and right lateral posterior chest, that totally reproduces the patient's complaints, Vital Signs: 22:25 BP 136 / 82; Pulse 83; Resp 16; Pulse Ox 99% on R/A; Weight 90.72 kg; Height 5 ft. 9 jb4 in. ; Pain 6/10; 22:25 Body Mass Index 29.53 (90.72 kg, 175.26 cm) jb4 22:25 Pain Scale: Adult jb4 MDM: 21:46 Patient medically screened. kb 23:22 Differential diagnosis: contusion, fracture. Data reviewed: vital signs, nurses notes. kb Historians other than the Patient: EMS: [facility]. Counseling: I had a detailed discussion with the patient and/or guardian regarding the historical points, exam findings, and any diagnostic results supporting the discharge/admit diagnosis, radiology results, the need for outpatient follow up, a family practitioner, to return to the emergency department if symptoms worsen or persist or if there are any questions or concerns that arise at home. 03/12 21:47 Order name: Ribs Right XRAY; Complete Time: 22:44 kb 03/12 21:47 Order name: Chest Single View XRAY; Complete Time: 22:37 kb Administered Medications: 22:16 Drug: morphine IVP or IV 4 mg IVP once over 4 mins Route: IVP; Infused Over: 4 mins; jb4 Site: right antecubital; 22:16 Drug: Ondansetron IVP 4 mg IVP once; over 2 minutes Route: IVP; Site: right antecubital;jb4 23:57 Drug: traMADol PO 50 mg PO once Route: PO; jb4 Disposition Summary: 03/12/24 23:23 Discharge Ordered Notes: Location: Home kb Condition: Stable kb Diagnosis - Fracture of one rib, right side kb Followup: kb - With: Emergency Department - When: As needed - Reason: Worsening of condition Followup: kb - With: Private Physician - When: 2 - 3 days - Reason: Recheck today's complaints, Continuance of care, Re-evaluation by your physician Discharge Instructions: - Discharge Summary Sheet kb - Rib Fracture, [id number] kb Forms: - Medication Reconciliation Form kb - Antibiotic Education kb - Prescription Opioid Use kb - Patient Portal Instructions kb - Leadership Thank You Letter kb Prescriptions: - Tramadol 50 mg Oral Tablet - take 1 tablet ORAL route every 8 hours as needed; 12 tablet; Refills: 0, kb Product Selection Permitted Addendum: 03/14/2024 05:38 I was immediately available for consultation during this patient's visit. I did not e c2 personally see the patient or discuss the patient with the ALLAN. . Signatures: Dispatcher [employer] Erika Galan, SHOAIBC NIKKI-Dashawn Mares, RN RN jb4 Johnathon Mckenzie MD MD ec2 Corrections: (The following items were deleted from the chart) 03/12 22:28 PMHx: Bipolar disorder; jb4 jb4 : PMHx: Anxiety; jb4 jb4
--- NOTE | 2024-03-12 23:24 | ER ---
Nurse's Notes [facility] Name: Chi Kelley Age: 54 yrs Sex: Male : 1970 Arrival Date: 03/12/2024 Time: 21:42 Bed 4 Private MD: Diagnosis: Fracture of one rib, right side Presentation: 03/12 22:25 Chief complaint: EMS states: Pt fell in his bathtub hitting his right ribs and lower jb4 back. Denies LOC. Coronavirus screen: At this time, the client does not indicate any symptoms associated with coronavirus-19. Ebola Screen: No symptoms or risks identified at this time. Initial Sepsis Screen: Does the patient meet any 2 criteria? No. Patient's initial sepsis screen is negative. Does the patient have a suspected source of infection? No. Patient's initial sepsis screen is negative. Risk Assessment: Do you want to hurt yourself or someone else? Patient reports no desire to harm self or others. Onset of symptoms was March 12, 2024. Transition of care: patient was not received from another setting of care. 22:25 Method Of Arrival: EMS: [facility] jb4 22:25 Acuity: DORIAN 4 jb4 Historical: - Allergies: 22:28 cats; jb4 22:28 Hydrocodone-Acetaminophen; jb4 22:28 Vicodin; jb4 - PMHx: 22:28 Bipolar disorder; chronic back pain; Chronic obstructive lung disease; COPD; depressive jb4 disorder; Glaucoma; Hypothyroidism; Anxiety; Pre-Diabetes; - PSHx: 22:28 Cholecystectomy; jb4 - Immunization history:: Adult Immunizations up to date. - Infectious Disease History:: Denies. - Social history:: Smoking status: Patient reports the use of cigarette tobacco products, smokes one-half pack cigarettes per day. Screenin:30 [facility] ED Fall Risk Assessment (Adult) History of falling in the last 3 months, jb4 including since admission No falls in past 3 months (0 pts) Confusion or Disorientation No (0 pts) Intoxicated or Sedated No (0 pts) Impaired Gait No (0 pts) Mobility Assist Device Used No (0 pt) Altered Elimination No (0 pt) Score/Fall Risk Level 0 - 2 = Low Risk Oriented to surroundings, Maintained a safe environment. Abuse screen: Denies threats or abuse. Nutritional screening: No deficits noted. Tuberculosis screening: No symptoms or risk factors identified. Assessment: 22:30 General: Appears in no apparent distress. uncomfortable, Behavior is calm, cooperative, jb4 appropriate for age. Pain: Complains of pain in anterior aspect of right lateral abdomen and posterior aspect of right lateral abdomen Pain does not radiate. Pain currently is 6 out of 10 on a pain scale. Quality of pain is described as aching. Neuro: Level of Consciousness is awake, alert, obeys commands, Oriented to person, place, time, situation. Cardiovascular: Patient's skin is warm and dry. Respiratory: Airway is patent Respiratory effort is even, unlabored, Respiratory pattern is regular, symmetrical. GI: No signs and/or symptoms were reported involving the gastrointestinal system. : No signs and/or symptoms were reported regarding the genitourinary system. EENT: No signs and/or symptoms were reported regarding the EENT system. Derm: Skin is intact, Skin is pink, warm \T\ dry. Musculoskeletal: Circulation, motion, and sensation intact. Range of motion: intact in all extremities. 23:30 Reassessment: Patient appears in no apparent distress at this time. Patient and/or jb4 family updated on plan of care and expected duration. Pain level reassessed. Patient is alert, oriented x 3, equal unlabored respirations, skin warm/dry/pink. Vital Signs: 22:25 BP 136 / 82; Pulse 83; Resp 16; Pulse Ox 99% on R/A; Weight 90.72 kg; Height 5 ft. 9 jb4 in. ; Pain 6/10; 22:25 Body Mass Index 29.53 (90.72 kg, 175.26 cm) jb4 22:25 Pain Scale: Adult jb4 ED Course: 21:46 Patient arrived in ED. kb 21:46 E[facility] Hackett [facility]NP-C [facility] kb 21:46 Johnathon Mckenzie MD is Attending Physician. kb 22:27 Triage completed. jb4 22:28 Arm band placed on right wrist. jb4 22:30 Ribs Right XRAY In Process Unspecified. EDMS 22:30 Chest Single View XRAY In Process Unspecified. EDMS 23:30 Patient has correct armband on for positive identification. Provided Education on: jb4 discharge instructions. 23:30 No provider procedures requiring assistance completed. IV discontinued, intact, jb4 bleeding controlled, No redness/swelling at site. Pressure dressing applied. Administered Medications: 22:16 Drug: morphine IVP or IV 4 mg IVP once over 4 mins Route: IVP; Infused Over: 4 mins; jb4 Site: right antecubital; 22:16 Drug: Ondansetron IVP 4 mg IVP once; over 2 minutes Route: IVP; Site: right antecubital;jb4 23:57 Drug: traMADol PO 50 mg PO once Route: PO; jb4 Medication: 23:30 VIS not applicable for this client. jb4 Outcome: 23:23 Discharge ordered by MD. rodriguez 03/13 00:00 Discharged to home ambulatory, jb4 Condition: stable Discharge instructions given to patient, Instructed on discharge instructions, follow up and referral plans. Demonstrated understanding of instructions, follow-up care, 00:17 Patient left the ED. jb4 Signatures: Dispatcher [employer] EDMS Erika Hackett, CLINICAL RESEARCH COORDINATOR-C CLINICAL RESEARCH COORDINATOR-Dashawn Mares, RN RN jb4 Corrections: (The following items were deleted from the chart) 03/12 22:28 22:28 PMHx: Bipolar disorder; jb4 jb4 22:28 22:28 PMHx: Anxiety; jb4 jb4
[2024-03-12] MEDS ORDERED: TRAMADOL HCL 50 MG TAB ONE (23:55)
[2024-03-13 00:47] VITALS: BP 136/82; O2SAT 99
== END 2024-03-13 00:17 | disposition home or self-care (01) ==
LOC: ER 21:42
DX: S22.31XA Fracture of one rib, right side, initial encounter for closed fracture (principal); F17.210 Nicotine dependence, cigarettes, uncomplicated
CPT/HCPCS: 71045; 71100; 96375; 96374; 99284; J2405

== ENCOUNTER 2024-04-09 13:46 | Emergency (ER) | payer OTHER ==
--- NOTE | 2024-04-09 14:31 | ER ---
Nurse's Notes [facility] Name: Chi Kelley Age: 54 yrs Sex: Male : 1970 Arrival Date: 04/09/2024 Time: 13:46 Bed 15 Private MD: Diagnosis: Other otitis externa, right ear Presentation: 04/09 13:56 Chief complaint: Patient states: R ear pain, drainage, and decreased hearing for 3 ll1 days. No fever. Coronavirus screen: Client denies travel out of the [place] in the last 14 days. At this time, the client does not indicate any symptoms associated with coronavirus-19. Ebola Screen: Patient denies travel to an Ebola-affected area in the 21 days before illness onset. Initial Sepsis Screen: Does the patient meet any 2 criteria? No. Patient's initial sepsis screen is negative. Does the patient have a suspected source of infection? No. Patient's initial sepsis screen is negative. Risk Assessment: Do you want to hurt yourself or someone else? Patient reports no desire to harm self or others. Onset of symptoms was April 07, 2024. 13:56 Method Of Arrival: Ambulatory ll1 13:56 Acuity: DORIAN 4 ll1 Triage Assessment: 14:01 General: Appears uncomfortable, Behavior is calm, cooperative, appropriate for age. ll1 Pain: Complains of pain in right ear. EENT: Reports decreased hearing in right ear pain in right ear. Historical: - Allergies: 13:57 cats; ll1 13:57 Hydrocodone-Acetaminophen; ll1 13:57 Vicodin; ll1 - PMHx: 13:57 Bipolar disorder; Glaucoma; COPD; depressive disorder; Chronic obstructive lung ll1 disease; chronic back pain; Anxiety; Hypothyroidism; Pre-Diabetes; - PSHx: 13:57 Cholecystectomy; ll1 - Immunization history:: Adult Immunizations up to date. - Infectious Disease History:: Denies. - Social history:: Smoking status: Patient reports the use of cigarette tobacco products, smokes one-half pack cigarettes per day. Screenin:55 [facility] ED Fall Risk Assessment (Adult) History of falling in the last 3 months, db including since admission No falls in past 3 months (0 pts) Confusion or Disorientation No (0 pts) Intoxicated or Sedated No (0 pts) Impaired Gait No (0 pts) Mobility Assist Device Used No (0 pt) Altered Elimination No (0 pt) Score/Fall Risk Level 0 - 2 = Low Risk Oriented to surroundings, Maintained a safe environment. Abuse screen: Denies threats or abuse. Denies injuries from another. Nutritional screening: No deficits noted. Tuberculosis screening: No symptoms or risk factors identified. Assessment: 14:55 Reassessment: Patient appears in no apparent distress at this time. Patient and/or db family updated on plan of care and expected duration. Pain level reassessed. Patient is alert, oriented x 3, equal unlabored respirations, skin warm/dry/pink. General: Appears in no apparent distress. comfortable, Behavior is calm, cooperative. Pain: Complains of pain in right ear. Neuro: Level of Consciousness is awake, alert, obeys commands, Oriented to person, place, time, situation. Respiratory: Airway is patent Respiratory effort is even, unlabored, Respiratory pattern is regular, symmetrical. 14:55 EENT: Tympanic membrane reddened on right ear Reports pain in right ear. db Vital Signs: 13:56 BP 148 / 82; Pulse 105; Resp 17; Temp 98.8; Pulse Ox 96% on R/A; Pain 10/10; ll1 13:56 Pain Scale: Adult ll1 ED Course: 13:51 Patient arrived in ED. mg5 13:57 Triage completed. ll1 13:58 Arm band placed on Patient placed in an exam room, on a stretcher. ll1 13:59 Danika Kelley PA[facility]C [facility]. sb4 13:59 Bobby Fox MD is Attending Physician. sb4 14:12 Arianna Campo, MELINA is Primary Nurse. db 14:55 Patient has correct armband on for positive identification. Bed in low position. Call db light in reach. Side rails up X 1. Provided Education on: DISCHARGE. Warm blanket given. Pillow given. 14:55 No provider procedures requiring assistance completed. Patient did not have IV access db during this emergency room visit. Administered Medications: 14:50 Drug: Bccqbohl-Vcxtbeniw-RH Otic Drops 4 drops Otic in right ear once Route: Otic; db Site: right ear; 14:58 Follow up: Response: No adverse reaction db Medication: 14:55 VIS not applicable for this client. db Outcome: 14:31 Discharge ordered by MD. negrete 14:55 Discharged to home ambulatory, with family, db 14:55 Condition: stable 14:55 Discharge instructions given to patient, Instructed on discharge instructions, follow up and referral plans. 15:02 Patient left the ED. db Signatures: Harjeet Vargas RN RN ll1 Arianna Campo RN RN db aDnika Kelley, PA-C PA-C sb4 Kimberlyn Jennings mg5 Corrections: (The following items were deleted from the chart) 14:58 14:55 General: Appears in no apparent distress. comfortable, Behavior is calm, db cooperative, db
--- NOTE | 2024-04-09 14:31 | EDPHYS ---
Physician Documentation [facility] Name: Chi Kelley Age: 54 yrs Sex: Male : 1970 Arrival Date: 04/09/2024 Time: 13:46 Bed 15 Private MD: ED Physician Bobby Fox HPI: 04/09 18:25 This 54 yrs old Male presents to ER via Ambulatory with complaints of Ear Pain. sb4 18:25 The patient presents with drainage, pain, swelling. The complaints affect the right sb4 ear. Onset: The symptoms/episode began/occurred 3 day(s) ago. Modifying factors: The symptoms are alleviated by nothing, the symptoms are aggravated by nothing. Associated signs and symptoms: The patient has no apparent associated signs or symptoms. The patient has not experienced similar symptoms in the past. The patient has not recently seen a physician. Historical: - Allergies: 13:57 cats; ll1 13:57 Hydrocodone-Acetaminophen; ll1 13:57 Vicodin; ll1 - PMHx: 13:57 Bipolar disorder; Glaucoma; COPD; depressive disorder; Chronic obstructive lung ll1 disease; chronic back pain; Anxiety; Hypothyroidism; Pre-Diabetes; - PSHx: 13:57 Cholecystectomy; ll1 - Immunization history:: Adult Immunizations up to date. - Infectious Disease History:: Denies. - Social history:: Smoking status: Patient reports the use of cigarette tobacco products, smokes one-half pack cigarettes per day. ROS: 18:25 Constitutional: Negative for fever, chills, and weight loss, sb4 18:25 ENT: Positive for drainage from ear(s), ear pain, hearing loss, 18:25 All other systems are negative, Exam: 18:25 Constitutional: This is a well developed, well nourished patient who is awake, alert, sb4 and in no acute distress. Head/Face: Normocephalic, atraumatic. Eyes: Extra-ocular motions intact. Periorbital areas with no swelling, redness, or edema. Skin: Warm, dry with normal turgor. Normal color with no rashes, no lesions, and no evidence of cellulitis. 18:25 ENT: Ear canal(s): erythema, that is moderate, of the right canal, swelling, that is moderate, of the right canal, TM's: are normal, Examination of the other ear shows no obvious abnormality, Vital Signs: 13:56 BP 148 / 82; Pulse 105; Resp 17; Temp 98.8; Pulse Ox 96% on R/A; Pain 10/10; ll1 13:56 Pain Scale: Adult ll1 MDM: 13:59 Patient medically screened. sb4 18:25 Data reviewed: vital signs, nurses notes, and as a result, I will discharge patient. sb4 Counseling: I had a detailed discussion with the patient and/or guardian regarding the historical points, exam findings, and any diagnostic results supporting the discharge/admit diagnosis, to return to the emergency department if symptoms worsen or persist or if there are any questions or concerns that arise at home. Administered Medications: 14:50 Drug: Pamjsqyj-Tstqfeawm-WK Otic Drops 4 drops Otic in right ear once Route: Otic; db Site: right ear; 14:58 Follow up: Response: No adverse reaction db Disposition: 19:21 Co-signature as Attending Physician, Bobby Fox MD I reviewed the patient's care rt provided by the Advanced Practice Provider and agree with the diagnosis and treatment plan. Disposition Summary: 04/09/24 14:31 Discharge Ordered Notes: Apply 4 drops in right ear 3 times a day for 7 days. Location: Home sb4 Problem: new sb4 Symptoms: have improved sb4 Condition: Stable sb4 Diagnosis - Other otitis externa, right ear sb4 Followup: sb4 - With: Emergency Department - When: As needed - Reason: Trouble breathing, Worsening of condition Discharge Instructions: - Discharge Summary Sheet sb4 - Otitis Externa, [id number] sb4 Forms: - Patient Portal Instructions sb4 - Leadership Thank You Letter sb4 Signatures: Harjeet Vargas, RN RN ll1 Arianna Campo, RN RN Danika Maurer, PACathyC PACathyC sb4 Bobby Fox MD MD rt
[2024-04-09] MEDS ORDERED: NEOMY/POLY/HC 1% OTIC DROPS ONE (14:35)
[2024-04-09 19:12] VITALS: BP 148/82; TEMP 98.8; O2SAT 96
== END 2024-04-09 15:02 | disposition home or self-care (01) ==
LOC: ER 13:46
DX: H60.8X1 Other otitis externa, right ear (principal)

== ENCOUNTER 2024-04-26 19:20 | Emergency (ER) | payer OTHER ==
[2024-04-26] MEDS ORDERED: MAGNES/ALUMIN/SIMET 30ML UCUP ONE (20:28)
--- NOTE | 2024-04-26 20:28 | EDPHYS ---
Physician Documentation [facility] Name: Chi Kelley Age: 54 yrs Sex: Male : 1970 Arrival Date: 04/26/2024 Time: 19:20 Bed IW3 Private MD: ED Physician Yassine Jauregui HPI: 04/26 20:29 This 54 yrs old Male presents to ER via Ambulatory with complaints of prescription pm1 refill. 20:29 Onset: The symptoms/episode began/occurred 1 week(s) ago. Associated signs and pm1 symptoms: Pertinent negatives: abdominal pain, chest pain, shortness of breath. Modifying factors: The patient symptoms are alleviated by GERD medications. Patient takes nexium, the patient symptoms are aggravated by eating food. The patient has experienced similar episodes in the past, chronically. The patient has not recently seen a physician. Patient presented the ER with complaints of prescription refill. He ran out of his GERD medications and he just wants a refill. Historical: - Allergies: 19:49 cats; tl4 19:49 Hydrocodone-Acetaminophen; tl4 19:49 Vicodin; tl4 - PMHx: 19:49 Anxiety; Pre-Diabetes; Hypothyroidism; Glaucoma; depressive disorder; COPD; Chronic tl4 obstructive lung disease; chronic back pain; Bipolar disorder; - PSHx: 19:49 Cholecystectomy; tl4 - Immunization history:: Adult Immunizations. - Infectious Disease History:: Denies. - Social history:: Smoking status: Patient reports the use of cigarette tobacco products, smokes one-half pack cigarettes per day. ROS: 20:29 Constitutional: Negative for fever, chills, and weight loss, pm1 20:29 Cardiovascular: Negative for chest pain, palpitations, and edema, Respiratory: Negative for shortness of breath, cough, wheezing, and pleuritic chest pain, Back: Negative for injury and pain, MS/Extremity: Negative for injury and deformity, Skin: Negative for injury, rash, and discoloration, Neuro: Negative for headache, weakness, numbness, tingling, and seizure, 20:29 Abdomen/GI: Negative for abdominal pain, nausea, vomiting, and diarrhea, black/tarry stool, rectal bleeding, Exam: 20:29 Constitutional: This is a well developed, well nourished patient who is awake, alert, pm1 and in no acute distress. Head/Face: Normocephalic, atraumatic. 20:29 Back: No spinal tenderness. No costovertebral tenderness. Full range of motion. 20:29 Skin: Warm, dry with normal turgor. Normal color with no rashes, no lesions, and no evidence of cellulitis. MS/ Extremity: Pulses equal, no cyanosis. Neurovascular intact. Full, normal range of motion. 20:29 Cardiovascular: Exam negative for acute changes, 20:29 Respiratory: Exam negative for acute changes, respiratory distress, shortness of breath, Breath sounds: are clear throughout, 20:29 Abdomen/GI: Exam negative for acute changes, Inspection: abdomen appears normal, Palpation: abdomen is soft and non-tender, in all quadrants, 20:29 Neuro: Exam negative for acute changes, Vital Signs: 19:45 BP 137 / 80; Pulse 93; Resp 18; Temp 97(O); Pulse Ox 98% on R/A; Weight 97.52 kg; tl4 Height 5 ft. 9 in. ; Pain 8/10; 20:45 BP 135 / 80; Pulse 80; Resp 18; Temp 97; Pulse Ox 98% ; Pain 0/10; bm8 19:45 Body Mass Index 31.75 (97.52 kg, 175.26 cm) tl4 19:45 Pain Scale: Adult tl4 20:45 Pain Scale: Adult bm8 [place] Coma Score: 20:45 Eye Response: spontaneous(4). Motor Response: obeys commands(6). Verbal Response: bm8 oriented(5). Total: 15. MDM: 20:21 Patient medically screened. pm1 20:26 Data reviewed: vital signs. pm1 20:26 Counseling: I had a detailed discussion with the patient and/or guardian regarding the pm1 historical points, exam findings, and any diagnostic results supporting the discharge/admit diagnosis, the need for outpatient follow up, a family practitioner, a fish and wildlife biologist, to return to the emergency department if symptoms worsen or persist or if there are any questions or concerns that arise at home, Patient does not want a work up. He came here for a refill of his prescription of GERD medication. Administered Medications: 20:45 Drug: GI Cocktail without - (Maalox PO 30 ml, Lidocaine Mucous Membrane 2 % 15 bm8 ml) PO once Route: PO; 20:47 Follow up: Response: No adverse reaction bm8 Disposition: 04/27 09:00 Co-signature as Attending Physician, Yassine Jauregui MD I reviewed the patient's care rn provided by the Advanced Practice Provider and agree with the diagnosis and treatment plan. Disposition Summary: 04/26/24 20:28 Discharge Ordered Notes: Location: Home pm1 Problem: new pm1 Symptoms: have improved pm1 Condition: Stable pm1 Diagnosis - Encounter for issue of repeat prescription pm1 Followup: pm1 - With: Emergency Department - When: As needed - Reason: Worsening of condition Followup: pm1 - With: Private Physician - When: 2 - 3 days - Reason: Recheck today's complaints, Continuance of care, Re-evaluation by your physician Discharge Instructions: - Discharge Summary Sheet pm1 - Medicine Refill at the Emergency Department pm1 - Food Choices for Gastroesophageal Reflux Disease, Adult, [id number] pm1 Forms: - Medication Reconciliation Form pm1 - Antibiotic Education pm1 - Prescription Opioid Use pm1 - Patient Portal Instructions pm1 - Leadership Thank You Letter pm1 Prescriptions: - Nexium 20 mg Oral Capsule - take 1 capsule ORAL route once daily; 20 capsule; Refills: 0, Product Selection pm1 Permitted Signatures: Yassine Jauregui MD MD rn Marinas, Patrick, NP [employer] pm1 Sterling Johnson RN RN tl4 Jerald Huang RN RN bm8
--- NOTE | 2024-04-26 20:28 | ER ---
Nurse's Notes [facility] Name: Chi Kelley Age: 54 yrs Sex: Male : 1970 Arrival Date: 04/26/2024 Time: 19:20 Bed IW3 Private MD: Diagnosis: Encounter for issue of repeat prescription Presentation: 04/26 19:45 Chief complaint: Patient states: Pt states he is having acid reflux. Pt states he is tl4 out of omeprazole which normally controls symptoms. Pt states he is very uncomfortable. Coronavirus screen: At this time, the client does not indicate any symptoms associated with coronavirus-19. Ebola Screen: No symptoms or risks identified at this time. Initial Sepsis Screen: Does the patient meet any 2 criteria? No. Patient's initial sepsis screen is negative. Does the patient have a suspected source of infection? No. Patient's initial sepsis screen is negative. Risk Assessment: Do you want to hurt yourself or someone else? Patient reports no desire to harm self or others. Onset of symptoms was April 24, 2024. 19:45 Method Of Arrival: Ambulatory tl4 19:45 Acuity: DORIAN 3 tl4 Triage Assessment: 19:49 General: Appears in no apparent distress. Behavior is calm, cooperative. Pain: tl4 Complains of pain in abdomen. EENT: No signs and/or symptoms were reported regarding the EENT system. Neuro: Level of Consciousness is awake, alert, obeys commands, Oriented to person, place, time, situation. Cardiovascular: Capillary refill < 3 seconds Patient's skin is warm and dry. Respiratory: Airway is patent Respiratory effort is even, unlabored, Respiratory pattern is regular, symmetrical. GI: Reports upper abdominal pain. : No signs and/or symptoms were reported regarding the genitourinary system. Derm: No signs and/or symptoms reported regarding the dermatologic system. Musculoskeletal: No signs and/or symptoms reported regarding the musculoskeletal system. Historical: - Allergies: 19:49 cats; tl4 19:49 Hydrocodone-Acetaminophen; tl4 19:49 Vicodin; tl4 - PMHx: 19:49 Anxiety; Pre-Diabetes; Hypothyroidism; Glaucoma; depressive disorder; COPD; Chronic tl4 obstructive lung disease; chronic back pain; Bipolar disorder; - PSHx: 19:49 Cholecystectomy; tl4 - Immunization history:: Adult Immunizations. - Infectious Disease History:: Denies. - Social history:: Smoking status: Patient reports the use of cigarette tobacco products, smokes one-half pack cigarettes per day. Screenin:45 [facility] ED Fall Risk Assessment (Adult) History of falling in the last 3 months, bm8 including since admission No falls in past 3 months (0 pts) Confusion or Disorientation No (0 pts) Intoxicated or Sedated No (0 pts) Impaired Gait No (0 pts) Mobility Assist Device Used No (0 pt) Altered Elimination No (0 pt) Score/Fall Risk Level 0 - 2 = Low Risk Oriented to surroundings, Maintained a safe environment, Educated pt \T\ family on fall prevention, incl call for assistance when getting out of bed, Assessed \T\ reinforced patient's understanding of fall precautions. Abuse screen: Denies threats or abuse. Nutritional screening: No deficits noted. Tuberculosis screening: No symptoms or risk factors identified. Assessment: 20:45 Reassessment: Patient appears in no apparent distress at this time. Patient and/or bm8 family updated on plan of care and expected duration. Pain level reassessed. Patient is alert, oriented x 3, equal unlabored respirations, skin warm/dry/pink. Patient states feeling better. General: Appears in no apparent distress. comfortable, Behavior is calm, cooperative, appropriate for age. Neuro: No deficits noted. Level of Consciousness is awake, alert, obeys commands, Oriented to person, place, time, situation, Appropriate for age. Cardiovascular: Denies chest pain, Capillary refill < 3 seconds Patient's skin is warm and dry. Respiratory: Airway is patent Respiratory effort is even, unlabored, Respiratory pattern is regular, symmetrical. GI: Abdomen is flat, non-distended, Reports indigestion, pt asking for nexium refill. Vital Signs: 19:45 BP 137 / 80; Pulse 93; Resp 18; Temp 97(O); Pulse Ox 98% on R/A; Weight 97.52 kg; tl4 Height 5 ft. 9 in. ; Pain 8/10; 20:45 BP 135 / 80; Pulse 80; Resp 18; Temp 97; Pulse Ox 98% ; Pain 0/10; bm8 19:45 Body Mass Index 31.75 (97.52 kg, 175.26 cm) tl4 19:45 Pain Scale: Adult tl4 20:45 Pain Scale: Adult bm8 [place] Coma Score: 20:45 Eye Response: spontaneous(4). Motor Response: obeys commands(6). Verbal Response: bm8 oriented(5). Total: 15. ED Course: 19:26 Patient arrived in ED. gm2 19:48 Triage completed. tl4 19:50 Arm band placed on right wrist. tl4 20:00 Luis Angel Suazo NP is PHCP. pm1 20:00 Yassine Jauregui MD is Attending Physician. pm1 20:44 Jerald Huang, RN is Primary Nurse. bm8 20:45 Patient has correct armband on for positive identification. Provided Education on: post bm8 er care. Client placed on continuous cardiac and pulse oximetry monitoring. NIBP monitoring applied. Pulse ox on. NIBP on. 20:45 No provider procedures requiring assistance completed. Patient did not have IV access bm8 during this emergency room visit. Administered Medications: 20:45 Drug: GI Cocktail without - (Maalox PO 30 ml, Lidocaine Mucous Membrane 2 % 15 bm8 ml) PO once Route: PO; 20:47 Follow up: Response: No adverse reaction bm8 Medication: 20:45 VIS not applicable for this client. bm8 Outcome: 20:28 Discharge ordered by . pm1 20:45 Discharged to home ambulatory, bm8 20:45 Condition: stable 20:45 Discharge instructions given to patient, Instructed on discharge instructions, follow up and referral plans. Demonstrated understanding of instructions, follow-up care, medications, Prescriptions given X 1, 20:47 Patient left the ED. bm8 Signatures: Luis Angel Suazo NP [employer] pm1 Anamika Vásquez 2 Sterling Johnson RN RN tl4 Jerald Huang, RN RN bm8
[2024-04-26] MEDS ORDERED: LIDOCAINE VISCOUS 2% 10ML ORAL SOLN ONE (20:29)
[2024-04-27 02:29] VITALS: BP 135/80; TEMP 97; O2SAT 98
== END 2024-04-26 20:47 | disposition home or self-care (01) ==
LOC: ER 19:20
DX: Z76.0 Encounter for issue of repeat prescription (principal)
CPT/HCPCS: 99284

== ENCOUNTER 2024-05-23 23:10 | Emergency (ER) | payer OTHER ==
--- NOTE | 2024-05-23 23:23 | EDPHYS ---
Physician Documentation [facility] Name: Chi Kelley Age: 54 yrs Sex: Male : 1970 Arrival Date: 05/23/2024 Time: 23:10 Bed IW3 Private MD: ED Physician Garett Torres HPI: 05/23 23:24 This 54 yrs old Male presents to ER via Ambulatory with complaints of Toothache. kb 23:24 Pt is a 54 year old male who presents for toothache that started yesterday. Pt has very kb poor dentition. Denies fever, nausea, vomiting. . Historical: - Allergies: 23:20 cats; cm10 23:20 Hydrocodone-Acetaminophen; cm10 23:20 Vicodin; cm10 - PMHx: 23:20 Bipolar disorder; Anxiety; Glaucoma; Pre-Diabetes; COPD; chronic back pain; cm10 Hypothyroidism; depressive disorder; Chronic obstructive lung disease; - PSHx: 23:20 Cholecystectomy; cm10 - Immunization history:: Adult Immunizations up to date. - Infectious Disease History:: Denies. - Social history:: Smoking status: Patient reports the use of cigarette tobacco products, smokes one-half pack cigarettes per day. ROS: 23:20 Constitutional: As per HPI kb Exam: 23:20 Constitutional: This is a well developed, well nourished patient who is awake, alert, kb and in no acute distress. Head/Face: Normocephalic, atraumatic. Cardiovascular: Regular rate Respiratory: Respirations even and unlabored. No increased work of breathing. Talking in full sentences Skin: Warm, dry with normal turgor. Normal color. MS/ Extremity: Pulses equal, no cyanosis. Neurovascular intact. Full, normal range of motion. Neuro: Awake and alert, GCS 15, oriented to person, place, time, and situation. Moves all extremities. Normal gait. 23:20 ENT: Dental exam: dental caries, gum swelling, that is mild, that is moderate, missing teeth, pain, that is moderate, specifically in the lower left first molar (#19) and lower left second bicuspid (#20), Vital Signs: 23:19 BP 128 / 75; Pulse 89; Resp 16; Temp 97.8; Pulse Ox 96% on R/A; Weight 100.24 kg; cm10 Height 5 ft. 9 in. ; Pain 07/27; 23:19 Body Mass Index 32.64 (100.24 kg, 175.26 cm) cm10 23:19 Pain Scale: Adult cm10 MDM: 23:16 Patient medically screened. kb 23:21 Differential diagnosis: dental caries, gingivitis, dental abscess, pericoronitis. Data kb reviewed: vital signs, nurses notes. Counseling: I had a detailed discussion with the patient and/or guardian regarding the historical points, exam findings, and any diagnostic results supporting the discharge/admit diagnosis, the need for outpatient follow up, a dentist, to return to the emergency department if symptoms worsen or persist or if there are any questions or concerns that arise at home. Administered Medications: 23:30 Drug: traMADol PO 50 mg PO once Route: PO; cm10 23:30 Follow up: Response: Medication administered at discharge. cm10 23:30 Drug: Amoxicillin-Clavulanate PO 875 mg PO once Route: PO; cm10 23:30 Follow up: Response: Medication administered at discharge. cm10 Disposition Summary: 05/23/24 23:23 Discharge Ordered Notes: Location: Home kb Condition: Stable kb Diagnosis - Periapical abscess without sinus kb Followup: kb - With: Emergency Department - When: As needed - Reason: Worsening of condition Followup: kb - With: Private Physician - When: 2 - 3 days - Reason: Recheck today's complaints, Continuance of care, Re-evaluation by your physician Discharge Instructions: - Discharge Summary Sheet kb - Dental Pain, [id number] kb - Dental Abscess, [id number] kb Forms: - Medication Reconciliation Form kb - Antibiotic Education kb - Prescription Opioid Use kb - Patient Portal Instructions kb - Leadership Thank You Letter kb Prescriptions: - Augmentin 875-125 mg Oral Tablet - take 1 tablet ORAL route every 12 hours for 10 days; 20 tablet; Refills: 0, kb Product Selection Permitted - Ibuprofen 600 mg Oral Tablet - take 1 tablet ORAL route every 6 hours As needed take with food; 30 tablet; kb Refills: 0, Product Selection Permitted Signatures: Erika Hackett, Karon Hernandez, RN RN cm10
--- NOTE | 2024-05-23 23:23 | ER ---
Nurse's Notes [facility] Name: Chi Kelley Age: 54 yrs Sex: Male : 1970 Arrival Date: 05/23/2024 Time: 23:10 Bed IW3 Private MD: Diagnosis: Periapical abscess without sinus Presentation: 05/23 23:19 Chief complaint: Patient states: Toothache to the bottom left side onset yesterday. cm10 Coronavirus screen: Client denies travel out of the [place] in the last 14 days. At this time, the client does not indicate any symptoms associated with coronavirus-19. Ebola Screen: Patient denies travel to an Ebola-affected area in the 21 days before illness onset. No symptoms or risks identified at this time. Initial Sepsis Screen: Does the patient meet any 2 criteria? No. Patient's initial sepsis screen is negative. Does the patient have a suspected source of infection? No. Patient's initial sepsis screen is negative. Risk Assessment: Do you want to hurt yourself or someone else? Patient reports no desire to harm self or others. Onset of symptoms was May 23, 2024. 23:19 Method Of Arrival: Ambulatory cm10 23:19 Acuity: DORIAN 4 cm10 Triage Assessment: 23:21 General: Appears in no apparent distress. comfortable, Behavior is calm, cooperative. cm10 Pain: Complains of pain in lower left second bicuspid (#20) and lower left first molar (#19). EENT: Reports pain in lower left second bicuspid (#20) and lower left first molar (#19). Neuro: No deficits noted. Level of Consciousness is awake, alert, obeys commands, Oriented to person, place, time, situation, Appropriate for age. Respiratory: No deficits noted. Airway is patent Respiratory effort is even, unlabored, Respiratory pattern is regular, symmetrical. Historical: - Allergies: 23:20 cats; cm10 23:20 Hydrocodone-Acetaminophen; cm10 23:20 Vicodin; cm10 - PMHx: 23:20 Bipolar disorder; Anxiety; Glaucoma; Pre-Diabetes; COPD; chronic back pain; cm10 Hypothyroidism; depressive disorder; Chronic obstructive lung disease; - PSHx: 23:20 Cholecystectomy; cm10 - Immunization history:: Adult Immunizations up to date. - Infectious Disease History:: Denies. - Social history:: Smoking status: Patient reports the use of cigarette tobacco products, smokes one-half pack cigarettes per day. Screenin:21 [facility] ED Fall Risk Assessment (Adult) History of falling in the last 3 months, cm10 including since admission No falls in past 3 months (0 pts) Confusion or Disorientation No (0 pts) Intoxicated or Sedated No (0 pts) Impaired Gait No (0 pts) Mobility Assist Device Used No (0 pt) Altered Elimination No (0 pt) Score/Fall Risk Level 0 - 2 = Low Risk Oriented to surroundings, Maintained a safe environment, Hourly rounding (assess needs \T\ fall precautionary measures) done. Abuse screen: Denies threats or abuse. Denies injuries from another. Nutritional screening: No deficits noted. Tuberculosis screening: No symptoms or risk factors identified. Vital Signs: 23:19 BP 128 / 75; Pulse 89; Resp 16; Temp 97.8; Pulse Ox 96% on R/A; Weight 100.24 kg; cm10 Height 5 ft. 9 in. ; Pain 10/10; 23:19 Body Mass Index 32.64 (100.24 kg, 175.26 cm) cm10 23:19 Pain Scale: Adult cm10 ED Course: 23:13 Patient arrived in ED. [id number] 23:16 Erika Hackett FNP-C is [facility]. kb 23:16 Garett Torres MD is Attending Physician. kb 23:20 Triage completed. cm10 23:21 Arm band placed on Patient placed in waiting room. cm10 23:22 Patient has correct armband on for positive identification. Provided Education on: ER cm10 process and procedures.. Cardiac monitoring not applicable on this patient. 23:22 No provider procedures requiring assistance completed. Patient did not have IV access cm10 during this emergency room visit. Administered Medications: 23:30 Drug: traMADol PO 50 mg PO once Route: PO; cm10 23:30 Follow up: Response: Medication administered at discharge. cm10 23:30 Drug: Amoxicillin-Clavulanate PO 875 mg PO once Route: PO; cm10 23:30 Follow up: Response: Medication administered at discharge. cm10 Medication: 23:21 VIS not applicable for this client. cm10 Outcome: 23:23 Discharge ordered by . kb 23:30 Discharged to home ambulatory, with family, cm10 23:30 Condition: good 23:30 Discharge instructions given to patient, Instructed on discharge instructions, follow up and referral plans. medication usage, Demonstrated understanding of instructions, follow-up care, medications, Prescriptions given X 2, 23:31 Patient left the ED. cm10 Signatures: Erika Hackett, CNC SET UP OPERATOR-C CNC SET UP OPERATOR-Ckb Renita Gilliland jj6 Karon Vick, RN RN cm10
[2024-05-23] MEDS ORDERED: AMOX/K CLAV 875 MG TAB ONE (23:24)
[2024-05-23] MEDS ORDERED: TRAMADOL HCL 50 MG TAB ONE (23:24)
[2024-05-24 10:44] VITALS: BP 128/75; TEMP 97.8; O2SAT 96
== END 2024-05-23 23:31 | disposition home or self-care (01) ==
LOC: ER 23:10
DX: K04.7 Periapical abscess without sinus (principal)

== ENCOUNTER 2024-07-11 23:30 | Emergency (ER) | payer OTHER ==
--- NOTE | 2024-07-12 00:24 | EDPHYS ---
Physician Documentation [facility] Name: Chi Kelley Age: 54 yrs Sex: Male : 1970 Arrival Date: 07/11/2024 Time: 23:30 Bed 7 Private MD: ED Physician Garett Torres HPI: 07/11 23:52 This 54 yrs old Male presents to ER via Unassigned with complaints of Fall Injury. sp3 23:52 54-year-old male with PMH above now presents with mechanical ground-level fall today sp3 injuring his lower back because he "landed on his tailbone". Patient states he has got pain radiating down bilateral lower extremities which is exacerbated his prior chronic symptoms. He denies any saddle paresthesia or bowel or bladder loss of control. Patient is ambulatory. He denies any other injury including head injury, neck pain, chest pain, shortness of breath, abdominal pain, upper back pain, mid back pain, other extremity pain, or any other signs or symptoms on ROS at this time.. Historical: - Allergies: 23:53 cats; me1 23:53 Hydrocodone-Acetaminophen; me1 23:53 Vicodin; me1 - PMHx: 23:53 Anxiety; Bipolar disorder; chronic back pain; Chronic obstructive lung disease; COPD; me1 Glaucoma; Hypothyroidism; depressive disorder; Pre-Diabetes; - PSHx: 23:53 Cholecystectomy; me1 - Immunization history:: Adult Immunizations unknown. - Infectious Disease History:: Denies. - Social history:: Smoking status: Patient reports the use of cigarette tobacco products, smokes one-half pack cigarettes per day. ROS: 23:53 Constitutional: Negative for fever, chills, and weight loss, Eyes: Negative for injury, sp3 pain, redness, and discharge, ENT: Negative for injury, pain, and discharge, Neck: Negative for injury, pain, and swelling, Cardiovascular: Negative for chest pain, palpitations, and edema, Respiratory: Negative for shortness of breath, cough, wheezing, and pleuritic chest pain, Abdomen/GI: Negative for abdominal pain, nausea, vomiting, diarrhea, and constipation, Skin: Negative for injury, rash, and discoloration, Neuro: Negative for headache, weakness, numbness, tingling, and seizure, Psych: Negative for depression, anxiety, suicide ideation, homicidal ideation, and hallucinations, Allergy/Immunology: Negative for hives, rash, and allergies, Endocrine: Negative for neck swelling, polydipsia, polyuria, polyphagia, and marked weight changes, Hematologic/Lymphatic: Negative for swollen nodes, abnormal bleeding, and unusual bruising, 23:53 All other systems are negative, Exam: 23:54 Constitutional: This is a well developed, well nourished patient who is awake, alert, sp3 and in no acute distress. Head/Face: Normocephalic, atraumatic. Eyes: Pupils equal round and reactive to light, extra-ocular motions intact. Lids and lashes normal. Conjunctiva and sclera are non-icteric and not injected. Cornea within normal limits. Periorbital areas with no swelling, redness, or edema. ENT: Nares patent. No nasal discharge, no septal abnormalities noted. External auditory canals are clear. Oropharynx with no redness, swelling, or masses, exudates, or evidence of obstruction, uvula midline. Mucous membranes moist. Neck: Trachea midline, no thyromegaly or masses palpated, and no cervical lymphadenopathy. Supple, full range of motion without nuchal rigidity, or vertebral point tenderness. No Meningismus. Chest/axilla: Normal chest wall appearance and motion. Nontender with no deformity. No lesions are appreciated. Cardiovascular: Regular rate and rhythm with a normal S1 and S2. No gallops, murmurs, or rubs. Normal PMI, no JVD. No pulse deficits. Respiratory: Lungs have equal breath sounds bilaterally, clear to auscultation and percussion. No rales, rhonchi or wheezes noted. No increased work of breathing, no retractions or nasal flaring. Abdomen/GI: Soft, non-tender, with normal bowel sounds. No distension or tympany. No guarding or rebound. No evidence of tenderness throughout. Skin: Warm, dry with normal turgor. Normal color with no rashes, no lesions, and no evidence of cellulitis. MS/ Extremity: Pulses equal, no cyanosis. Neurovascular intact. Full, normal range of motion. Neuro: Awake and alert, GCS 15, oriented to person, place, time, and situation. Cranial nerves II-XII grossly intact. Motor strength 5/5 in all extremities. Sensory grossly intact. Cerebellar exam normal. Normal gait. Psych: Awake, alert, with orientation to person, place and time. Behavior, mood, and affect are within normal limits. 23:54 Back: Mild pain to palpation on the lower back across musculature. No bony tenderness. No step-offs noted., Vital Signs: 23:51 BP 133 / 90; Pulse 99; Resp 17; Temp 98.2; Pulse Ox 97% ; Weight 95.25 kg; Height 5 ft. me1 9 in. ; Pain 10/10; 07/12 00:26 BP 125 / 86; Pulse 71; Resp 17; Temp 98.1; Pulse Ox 97% ; Pain 8/10; bm8 07/11 23:51 Body Mass Index 31.01 (95.25 kg, 175.26 cm) mo1 07/11 23:51 Pain Scale: Adult me1 07/12 00:26 Pain Scale: Adult bm8 William Coma Score: 00:26 Eye Response: spontaneous(4). Motor Response: obeys commands(6). Verbal Response: bm8 oriented(5). Total: 15. MDM: 07/11 23:46 Patient medically screened. sp3 23:55 Data reviewed: vital signs, nurses notes, radiologic studies. ED course: 54-year-old sp3 male with low back contusion versus low probability fracture or other traumatic abnormality. Vital signs are normal. Patient has chronic low back pain. This likely exacerbated that injury. Ibuprofen will be given here in the ED. If x-rays of the lumbar sacral spine are negative we will discharge patient home on NSAID.. 07/12 00:23 ED course: X-rays read by me and demonstrate no significant acute findings. Patient sp3 will be discharged home at this time.. 07/11 23:52 Order name: Lumbar Spine (3 Views) XRAY sp3 Administered Medications: 00:19 Not Given (Physician Discretion): [id number] mg PO once bm8 Disposition Summary: 07/12/24 00:24 Discharge Ordered Notes: Location: Home sp3 Condition: Stable sp3 Diagnosis - Acute on chronic low back pain due to trauma/fall sp3 Followup: sp3 - With: Private Physician - When: Upon discharge from the Emergency Department - Reason: Continuance of care Discharge Instructions: - Discharge Summary Sheet sp3 - Acute Back Pain, Adult sp3 Forms: - Medication Reconciliation Form sp3 - Antibiotic Education sp3 - Prescription Opioid Use sp3 - Patient Portal Instructions sp3 - Leadership Thank You Letter sp3 Prescriptions: - Diclofenac Sodium 75 mg Oral Tablet Sustained Release - take 1 tablet ORAL route 2 times per day; 30 tablet; Refills: 0, Product sp3 Selection Permitted Signatures: Dispatcher [employer] Garett Pinedo MD MD sp3 Susanna Rogers RN RN me1 Jerald Huang RN bm8
--- NOTE | 2024-07-12 00:24 | ER ---
Nurse's Notes [facility] Name: Chi Kelley Age: 54 yrs Sex: Male : 1970 Arrival Date: 07/11/2024 Time: 23:30 Bed 7 Private MD: Diagnosis: Acute on chronic low back pain due to trauma/fall Presentation: 07/11 23:51 Chief complaint: Patient states: s/p fall this afternoon while trying to get on his me1 bike. c/o lower back pain that goes down both legs, 10/10, throbbing. Coronavirus screen: Vaccine status: Patient reports being unvaccinated. Ebola Screen: No symptoms or risks identified at this time. Initial Sepsis Screen: Does the patient meet any 2 criteria? No. Patient's initial sepsis screen is negative. Does the patient have a suspected source of infection? No. Patient's initial sepsis screen is negative. Risk Assessment: Do you want to hurt yourself or someone else? Patient reports no desire to harm self or others. Onset of symptoms was July 11, 2024 at 16:00. 23:51 Method Of Arrival: Ambulatory me1 23:51 Acuity: DORIAN 4 me1 Historical: - Allergies: 23:53 cats; me1 23:53 Hydrocodone-Acetaminophen; me1 23:53 Vicodin; me1 - PMHx: 23:53 Anxiety; Bipolar disorder; chronic back pain; Chronic obstructive lung disease; COPD; me1 Glaucoma; Hypothyroidism; depressive disorder; Pre-Diabetes; - PSHx: 23:53 Cholecystectomy; me1 - Immunization history:: Adult Immunizations unknown. - Infectious Disease History:: Denies. - Social history:: Smoking status: Patient reports the use of cigarette tobacco products, smokes one-half pack cigarettes per day. Screenin/25 00:26 [facility] ED Fall Risk Assessment (Adult) History of falling in the last 3 months, bm8 including since admission No falls in past 3 months (0 pts) Confusion or Disorientation No (0 pts) Intoxicated or Sedated No (0 pts) Impaired Gait No (0 pts) Mobility Assist Device Used No (0 pt) Altered Elimination No (0 pt) Score/Fall Risk Level 0 - 2 = Low Risk Oriented to surroundings, Maintained a safe environment, Educated pt \T\ family on fall prevention, incl call for assistance when getting out of bed, Assessed \T\ reinforced patient's understanding of fall precautions, Hourly rounding (assess needs \T\ fall precautionary measures) done, Used ambulatory aids as needed (educated on \T\ assisted with), Used gait belt as appropriate. Abuse screen: Denies threats or abuse. Nutritional screening: No deficits noted. Tuberculosis screening: No symptoms or risk factors identified. Assessment: 00:26 Reassessment: Patient appears in no apparent distress at this time. Patient and/or bm8 family updated on plan of care and expected duration. Pain level reassessed. Patient is alert, oriented x 3, equal unlabored respirations, skin warm/dry/pink. General: Appears in no apparent distress. comfortable, Behavior is calm, cooperative, appropriate for age. Pain: Pain currently is 8 out of 10 on a pain scale. Neuro: No deficits noted. Level of Consciousness is awake, alert, obeys commands, Oriented to person, place, time, situation, Appropriate for age. Cardiovascular: Denies chest pain, Capillary refill < 3 seconds Patient's skin is warm and dry. Respiratory: Airway is patent Respiratory effort is even, unlabored, Respiratory pattern is regular, symmetrical. GI: No signs and/or symptoms were reported involving the gastrointestinal system. : No signs and/or symptoms were reported regarding the genitourinary system. EENT: No signs and/or symptoms were reported regarding the EENT system. Derm: No signs and/or symptoms reported regarding the dermatologic system. Musculoskeletal: Circulation, motion, and sensation intact. Range of motion: intact in all extremities, Reports pain in back Pain is 8 out of 10 on a pain scale. Vital Signs: 07/11 23:51 BP 133 / 90; Pulse 99; Resp 17; Temp 98.2; Pulse Ox 97% ; Weight 95.25 kg; Height 5 ft. me1 9 in. ; Pain 10/10; 07/12 00:26 BP 125 / 86; Pulse 71; Resp 17; Temp 98.1; Pulse Ox 97% ; Pain 8/10; bm8 07/11 23:51 Body Mass Index 31.01 (95.25 kg, 175.26 cm) me1 07/11 23:51 Pain Scale: Adult me1 07/12 00:26 Pain Scale: Adult bm8 Cement Coma Score: 00:26 Eye Response: spontaneous(4). Motor Response: obeys commands(6). Verbal Response: bm8 oriented(5). Total: 15. ED Course: 07/11 23:34 Patient arrived in ED. gm2 23:39 Garett Torres MD is Attending Physician. sp3 23:53 Triage completed. me1 23:53 Arm band placed on Patient placed in an exam room. me1 07/12 00:01 Jerald Huang, RN is Primary Nurse. bm8 00:25 Lumbar Spine (3 Views) XRAY In Process Unspecified. EDMS 00:26 Patient has correct armband on for positive identification. Call light in reach. Side bm8 rails up X 1. Provided Education on: post er care. Client placed on continuous cardiac and pulse oximetry monitoring. NIBP monitoring applied. Pulse ox on. NIBP on. 00:26 No provider procedures requiring assistance completed. Patient did not have IV access bm8 during this emergency room visit. Administered Medications: 00:19 Not Given (Physician Discretion): [id number] mg PO once bm8 Medication: 00:26 VIS not applicable for this client. bm8 Outcome: 00:24 Discharge ordered by . sp3 00:26 Discharged to home ambulatory, bm8 00:30 Condition: stable bm8 00:30 Discharge instructions given to patient, Instructed on discharge instructions, follow up and referral plans. Demonstrated understanding of instructions, follow-up care, medications, Prescriptions given X 1, 00:34 Patient left the ED. bm8 Signatures: Dispatcher [employer] EDNV Garett Torres MD MD sp3 Susanna Rogers RN RN la1 Anamika Vásquez 2 Jerald Huang, RN RN bm8
[2024-07-12 00:54] VITALS: O2SAT 97
[2024-07-12 00:56] VITALS: BP 125/86; TEMP 98.1
--- NOTE | 2024-07-12 05:25 | RAD REPORT ---
CLINICAL HISTORY: Pain, radiculopathy. COMPARISON: CT Abdomen and Pelvis 07/07/2024. TECHNIQUE: XR LUMBAR SPINE 2-3 VIEWS 07/11/2024 11:52 PM CDT FINDINGS: There is no acute fracture. Vertebral body heights are preserved. Alignment is anatomic. There is mod erate lower lumbar facet arthritis. There is mild narrowing of the L5-S1 disc. Soft tissues are unremarkable. IMPRESSION: No acute fracture or subluxation. Electronically signed by: Jaime Hu MD 07/12/2024 12:44 AM CDT RP Due to temporary technical issues with the PACS/KeraFAST scribe reporting system, reports are being sign ed by the in-house radiologist without review as a courtesy to ensure prompt reporting the interpreting radiologist is fully responsible for the content of the report. Transcribed Date/Time: 07/12/2024 5:24 AM
== END 2024-07-12 00:34 | disposition home or self-care (01) ==
LOC: ER 23:30
DX: G89.11 Acute pain due to trauma (principal); W18.30XA Fall on same level, unspecified, initial encounter; F17.210 Nicotine dependence, cigarettes, uncomplicated
CPT/HCPCS: 72100; 99283

== ENCOUNTER 2024-07-23 19:15 | Emergency (ER) | payer OTHER ==
[2024-07-23 19:53] LABS: Hemoglobin 14.5 g/dL (13.6-17.9); MCH 31.2 pg (27.0-35.0); MPV 9.6 fL (7.6-11.3); Monocytes % 7.1 % (3.3-12.3); Red Cell Distribution Width 13.1 % (12.1-15.2)
[2024-07-23 19:56] LABS: Absolute Basophils 0.1 K/uL (0-0.5); Absolute Eosinophils 0.2 K/uL (0-0.5); Absolute Lymphocytes (CBC) 2.3 K/uL (0.7-4.9); Absolute Monocytes 0.6 K/uL (0.1-1.3); Absolute Neutrophil 4.8 K/uL (1.8-8.0); Basophils % 0.9 % (0-1.3); Eosinophils % 2.8 % (0-4.4); Hematocrit 42.5 % (39.6-49.0); Lymphocytes % 28.9 % (15.3-44.8); MCV 91.6 fL (80-100); Neutrophils % 60.3 % (41.7-73.7); Nucleated Red Blood Cells % 0.1 % (0-0); Platelets 166 thou/uL (152-406); RBC Red Blood Cell Count 4.65 M/uL (4.33-5.43); Specific Gravity > 1.030 (1.005-1.030); Sqamous Epithelial None Seen /HPF (None Seen); Urine Bacteria <20 /HPF (<20); Urine Bilirubin NEGATIVE (Negative); Urine Blood Negative (Negative); Urine Clarity Clear (Clear); Urine Color Light-Yellow (Yellow); Urine Culture Reflex Order NOT NEEDED; Urine Glucose 4+ (Over) (Negative); Urine Ketones NEGATIVE (Negative); Urine Microscopic Reflex YN ORDER UMIC; Urine Nitrite NEGATIVE (Negative); Urine Protein NEGATIVE (Negative); Urine RBC <5 /HPF (None Seen); Urine Urobilinogen Normal (Normal); Urine WBC <5 /HPF (<5)
[2024-07-23 20:00] LABS: Barbiturates NEGATIVE (NEGATIVE); Benzodiazepines NEGATIVE (NEGATIVE); Cocaine NEGATIVE (NEGATIVE); METHAMPHETAM NEGATIVE (NEGATIVE); Methadone NEGATIVE (NEGATIVE); Opiates NEGATIVE (NEGATIVE); Phencyclidine NEGATIVE (NEGATIVE); THC Cannibis NEGATIVE (NEGATIVE)
[2024-07-23 20:03] LABS: PT Prothrombin Time 11.4 SECONDS (9.4-12.5); PTT, Activated Partial Thromb 33.2 SECONDS (24.3-36.9); Protime INR 1.02
[2024-07-23 20:18] LABS: ALT/SGPT 99 U/L (16-61); AST/SGOT 65 U/L (15-37); Albumin 3.6 g/dL (3.4-5.0); Albumin/Globulin Ratio 0.9 (1.1-1.8); Alkaline Phosphatase 93 U/L (45-117); Anion Gap 10.7 mEq/L (5.0-15.0); BUN Blood Urea Nitrogen 16 mg/dL (7-18); Bicarbonate 26 mEq/L (21-32); Bilirubin Total 0.3 mg/dL (0.2-1.0); Globulin 3.8 g/dL (2.3-3.5); Glomerular Filtration Rate 71 ml/min (=/>90); Glucose Level 393 mg/dL (74-106); Potassium 3.7 mEq/L (3.5-5.1); Protein, Total 7.4 g/dL (6.4-8.2); Sodium Level 135 mEq/L (136-145)
[2024-07-23 20:19] LABS: Bilirubin Direct < 0.2 mg/dL (0-0.2); Bilirubin Indirect, Calculated 0.1 mg/dL (0.2-0.8)
[2024-07-23] MEDS ORDERED: ZIPRASIDONE MESYLA 20 MG/VIAL IM ONE (20:22)
[2024-07-23] MEDS ORDERED: NA CHLORIDE 0.9% 1,000 ML ONE (20:22)
[2024-07-23] MEDS ORDERED: LORazepam 2 MG/ML VIAL ONE (20:22)
[2024-07-23] MEDS ORDERED: WATER FOR INJ,STERILE 10 ML ONE (20:23)
--- NOTE | 2024-07-23 23:32 | EDPHYS ---
Physician Documentation [facility] Name: Chi Kelley Age: 54 yrs Sex: Male : 1970 Arrival Date: 07/23/2024 Time: 19:15 Bed 18 Private MD: ED Physician Johnathon Mckenzie HPI: 07/23 19:30 This 54 yrs old Male presents to ER via Ambulatory with complaints of Suicidal Ideation.cp 19:30 The patient presents to the emergency department with psychosis, has experienced cp auditory hallucinations, suicide ideation, and the patient has a plan, to overdose with medications. 19:30 Onset: The symptoms/episode began/occurred 2 day(s) ago. cp 19:30 Past psychiatric history: Prior diagnosis: bipolar disorder, depression. Associated cp signs and symptoms: Pertinent positives; insomnia. Historical: - Allergies: 19:22 cats; iw 19:22 Hydrocodone-Acetaminophen; iw 19:22 Vicodin; iw - PMHx: 19:22 Anxiety; Bipolar disorder; Chronic obstructive lung disease; chronic back pain; iw depressive disorder; Glaucoma; Hypothyroidism; Pre-Diabetes; - PSHx: 19:22 Cholecystectomy; iw - Immunization history:: Adult Immunizations up to date. - Infectious Disease History:: Denies. - Social history:: Smoking status: Patient reports the use of cigarette tobacco products, smokes one-half pack cigarettes per day. ROS: 19:33 Constitutional: Negative for body aches, chills, fever, poor PO intake, cp 19:33 Eyes: Negative for injury, pain, redness, and discharge, cp Exam: 19:35 Constitutional: The patient appears in no acute distress, alert, awake, cp non-diaphoretic, non-toxic, well developed, well nourished, 19:35 Head/Face: Normocephalic, atraumatic. cp 19:35 Eyes: Periorbital structures: appear normal, Conjunctiva: normal, no exudate, no injection, Lids and lashes: appear normal, bilaterally, 19:35 ENT: External ear(s): are unremarkable, Nose: is normal, Mouth: Lips: moist, Oral mucosa: moist, Posterior pharynx: Airway: no evidence of obstruction, patent, 19:35 Chest/axilla: Inspection: normal, 19:35 Cardiovascular: Rate: bradycardic, Rhythm: regular, 19:35 Respiratory: the patient does not display signs of respiratory distress, Respirations: normal, no use of accessory muscles, no retractions, labored breathing, is not present, Breath sounds: are clear throughout, no decreased breath sounds, no stridor, no wheezing, 19:35 Abdomen/GI: Exam negative for discomfort, distension, guarding, Inspection: abdomen appears normal, 19:35 Neuro: Orientation: to person, place \T\ time. Mentation: is normal, Cerebellar function: is grossly normal, Motor: moves all fours, strength is normal, 19:35 Psych: Behavior/mood is cooperative, suicidal, Affect is agitated. Patient having thoughts of suicide. Plan for suicide is overdose on prescription medications Judgement / Insight is normal. 19:58 ECG was reviewed by the Attending Physician. cp Vital Signs: 19:25 BP 136 / 83; Pulse 47; Resp 18; Temp 97.8; Pulse Ox 97% ; Weight 95.25 kg; Height 5 ft. cp4 9 in. ; Pain 0/10; 07/24 02:52 BP 142 / 87; Pulse 88; Resp 18; Temp 97; Pulse Ox 97% ; Pain 0/10; cp4 07/23 19:25 Body Mass Index 31.01 (95.25 kg, 175.26 cm) cp4 07/23 19:25 Pain Scale: Adult cp4 07/24 02:52 Pain Scale: Adult cp4 MDM: 07/23 19:20 Patient medically screened. cp 20:00 Differential diagnosis: drug withdrawal. acute psychotic break, depression, psychosis cp secondary to non-compliance. 23:30 Data reviewed: vital signs, nurses notes, lab test result(s), EKG, and as a result, I cp will discharge patient. 23:31 Independent interpretation of the following test(s) in the Emergency Department EKG: cp See my EKG interpretation above. 23:31 Care significantly affected by the following chronic conditions: Diabetes, Chronic cp Obstructive Pulmonary Disease. Counseling: I had a detailed discussion with the patient and/or guardian regarding the historical points, exam findings, and any diagnostic results supporting the discharge/admit diagnosis, lab results, the need to transfer to another facility, [facility] does not immediately have the required specialist. 07/23 19:24 Order name: Acetaminophen; Complete Time: 21:11 cp 07/23 21:11 Interpretation: Reviewed. cp 07/23 19:24 Order name: Basic Metabolic Panel; Complete Time: 21:11 07/23 21:12 Interpretation: Normal except: NA 135; GLUC 393; GFR 71. cp 07/23 19:24 Order name: CBC with Diff; Complete Time: 20:15 07/23 19:24 Order name: ETOH Level; Complete Time: 21:11 cp 07/23 19:24 Order name: Hepatic Function; Complete Time: 21:11 cp 07/23 21:12 Interpretation: Normal except: AST 65; ALT 99; IBILI, CALC 0.1; GLOB 3.8; A/G 0.9. cp 07/23 19:24 Order name: PT-INR; Complete Time: 20:15 07/23 19:24 Order name: Ptt, Activated; Complete Time: 20:15 07/23 19:24 Order name: Salicylate; Complete Time: 21:11 07/23 19:24 Order name: Urinalysis w/ reflexes; Complete Time: 20:15 07/23 19:24 Order name: Urine Drug Screen; Complete Time: 20:15 cp 07/23 20:35 Order name: Glucose, Ancillary Testing; Complete Time: 21:11 EDMS 07/23 23:12 Order name: Glucose, Ancillary Testing EDMS 07/23 23:14 Order name: Glucose, Ancillary Testing EDWI 07/23 19:24 Order name: EKG; Complete Time: 19:24 07/23 19:24 Order name: EKG - Nurse/Tech; Complete Time: 19:46 07/23 19:24 Order name: IV Saline Lock; Complete Time: 19:46 07/23 19:24 Order name: Labs collected and sent; Complete Time: 19:46 cp 07/23 19:24 Order name: Suicide Precautions; Complete Time: 19:46 07/23 19:24 Order name: Suicide Screening ([place]); Complete Time: 19:46 07/23 20:16 Order name: Accucheck Blood Glucose; Complete Time: 20:26 cp 07/23 22:52 Order name: Accucheck Blood Glucose; Complete Time: 23:01 cp EC:58 Rate is 86 beats/min. Rhythm is regular. ND interval is normal. QRS interval is normal. cp QT interval is normal. T waves are Inverted in lead aVR. Interpreted by me. Reviewed by me. Administered Medications: 20:30 Drug: Geodon IM 10 mg IM once Route: IM; Site: right deltoid; cp4 21:12 Follow up: Response: No adverse reaction cp4 20:31 Drug: Ativan IVP 1 mg IVP once Route: IVP; Site: right antecubital; cp4 21:12 Follow up: Response: No adverse reaction cp4 20:31 Drug: NS 0.9% IV 1000 ml IV at 999 ml/hr Per protocol Route: IV; Rate: 999 ml/hr; Site: cp4 right antecubital; 21:40 Follow up: IV Status: Completed infusion cp4 Point of Care Testing: Blood Glucose: 23:01 Blood Glucose: 264 mg/dL; cp4 Ranges: Critical Glucose Levels:Adult <50 mg/dl or >400 mg/dl <40 mg/dl or >180 mg/dl Disposition Summary: 07/23/24 23:32 Transfer Ordered Notes: Transfer Location: [facility] Facility cp Reason: Higher level of care cp Condition: Stable cp Problem: new cp Symptoms: have improved cp Accepting Physician: DR Kumar(07/24/24 02:57) cp4 Diagnosis - Insomnia due to other mental disorder cp - Suicidal ideations cp Forms: - Medication Reconciliation Form cp - SBAR form cp Addendum: 07/26/2024 09:45 I was immediately available for consultation during this patient's visit. I did not e c2 personally see the patient or discuss the patient with the ALL[place]. . Signatures: Dispatcher [employer] Joann Jones RN RN iw Page, Corey, PA PA cp Corral, Edwin, MD MD ec2 Jazmin Adam cp4 Corrections: (The following items were deleted from the chart) 07/24 01:02 07/23 23:32 Doctor sadi cp 07/24 02:57 01:02 DR Kumar cp cp4
--- NOTE | 2024-07-23 23:32 | ER ---
Nurse's Notes [facility] Name: Chi Kelley Age: 54 yrs Sex: Male : 1970 Arrival Date: 07/23/2024 Time: 19:15 Bed 18 Private MD: Diagnosis: Insomnia due to other mental disorder;Suicidal ideations Presentation: 07/23 19:21 Chief complaint: Patient states: suicidal ideation for past few days, worse today, iw reached out to suicide hotline and they told him to come to ER , has a plan to take his pills to overdose. Coronavirus screen: At this time, the client does not indicate any symptoms associated with coronavirus-19. Ebola Screen: No symptoms or risks identified at this time. Initial Sepsis Screen: Does the patient meet any 2 criteria? No. Patient's initial sepsis screen is negative. Does the patient have a suspected source of infection? No. Patient's initial sepsis screen is negative. Risk Assessment: Do you want to hurt yourself or someone else? Patient reports desire/thoughts of hurting themselves or someone else. Provider notified. Onset of symptoms was July 20, 2024. 19:21 Method Of Arrival: Ambulatory iw 19:21 Acuity: DORIAN 2 iw Triage Assessment: 19:25 General: Appears in no apparent distress. uncomfortable, Behavior is calm, cooperative, cp4 appropriate for age. Pain: Denies pain. EENT: No signs and/or symptoms were reported regarding the EENT system. Neuro: Level of Consciousness is awake, alert, obeys commands, Oriented to person, place, time, situation. Cardiovascular: Patient's skin is warm and dry. Respiratory: Airway is patent Respiratory effort is even, unlabored. GI: No signs and/or symptoms were reported involving the gastrointestinal system. : No signs and/or symptoms were reported regarding the genitourinary system. Derm: No signs and/or symptoms reported regarding the dermatologic system. Musculoskeletal: No signs and/or symptoms reported regarding the musculoskeletal system. Historical: - Allergies: 19:22 cats; iw 19:22 Hydrocodone-Acetaminophen; iw 19:22 Vicodin; iw - PMHx: 19:22 Anxiety; Bipolar disorder; Chronic obstructive lung disease; chronic back pain; iw depressive disorder; Glaucoma; Hypothyroidism; Pre-Diabetes; - PSHx: 19:22 Cholecystectomy; iw - Immunization history:: Adult Immunizations up to date. - Infectious Disease History:: Denies. - Social history:: Smoking status: Patient reports the use of cigarette tobacco products, smokes one-half pack cigarettes per day. Screenin:28 [facility] ED Fall Risk Assessment (Adult) History of falling in the last 3 months, cp4 including since admission No falls in past 3 months (0 pts) Confusion or Disorientation No (0 pts) Intoxicated or Sedated No (0 pts) Impaired Gait No (0 pts) Mobility Assist Device Used No (0 pt) Altered Elimination No (0 pt) Score/Fall Risk Level 0 - 2 = Low Risk Oriented to surroundings, Maintained a safe environment, Assessed \\T\\ reinforced patient's understanding of fall precautions, Hourly rounding (assess needs \\T\\ fall precautionary measures) done. Abuse screen: Denies threats or abuse. Nutritional screening: No deficits noted. Tuberculosis screening: No symptoms or risk factors identified. Assessment: 19:28 Reassessment: No changes from previously documented assessment. cp4 20:00 Reassessment: Patient appears in no apparent distress at this time. Patient and/or cp4 family updated on plan of care and expected duration. Pain level reassessed. Patient is alert, oriented x 3, equal unlabored respirations, skin warm/dry/pink. 20:14 Reassessment: REPORTS NOT WANTING TO BE TRANSFER TO [facility]. ANY OTHER FACILITY ha1 IS OK. 21:00 Reassessment: Patient appears in no apparent distress at this time. Patient and/or cp4 family updated on plan of care and expected duration. Pain level reassessed. Patient is alert, oriented x 3, equal unlabored respirations, skin warm/dry/pink. 22:00 Reassessment: Patient appears in no apparent distress at this time. Patient and/or cp4 family updated on plan of care and expected duration. Pain level reassessed. Patient is alert, oriented x 3, equal unlabored respirations, skin warm/dry/pink. 23:00 Reassessment: Patient appears in no apparent distress at this time. Patient and/or cp4 family updated on plan of care and expected duration. Pain level reassessed. Patient is alert, oriented x 3, equal unlabored respirations, skin warm/dry/pink. 07/24 00:00 Reassessment: Patient appears in no apparent distress at this time. Patient and/or cp4 family updated on plan of care and expected duration. Pain level reassessed. Patient is alert, oriented x 3, equal unlabored respirations, skin warm/dry/pink. 01:00 Reassessment: Patient appears in no apparent distress at this time. Patient and/or cp4 family updated on plan of care and expected duration. Pain level reassessed. Patient is alert, oriented x 3, equal unlabored respirations, skin warm/dry/pink. 02:00 Reassessment: Patient appears in no apparent distress at this time. Patient and/or cp4 family updated on plan of care and expected duration. Pain level reassessed. Patient is alert, oriented x 3, equal unlabored respirations, skin warm/dry/pink. Psych: 07/23 19:46 [place] Suicide Severity Screening: In the past month, have you wished you were cp4 or wished you could go to sleep and not wake up? Patient responds "yes." "In the past month, have you actually had any thoughts of killing yourself?" Patient responds "yes." "In your lifetime, have you ever done anything, started to do anything, or prepared to do anything to end your life?" Patient responds "yes.". Subjective: Patient's mood is sad, Delusions are denied, Hallucinations are denied Having thoughts of suicide. Plan for suicide is taking his and his 's pills. Objective: Patient is cooperative, Speech is normal, Affect is appropriate. Interventions: Removed personal items and placed in bag. Patient placed in hospital gown. Searched person for dangerous items. Urine collected and sent for urine drug test. Belonging list filled out. Safety Checks: Personal items have been removed. Door is open. No visitors are present at this time. Pt denies substance abuse. Commitment: Patient will be a voluntary commitment. Vital Signs: 19:25 BP 136 / 83; Pulse 47; Resp 18; Temp 97.8; Pulse Ox 97% ; Weight 95.25 kg; Height 5 ft. cp4 9 in. ; Pain 0/10; 07/24 02:52 BP 142 / 87; Pulse 88; Resp 18; Temp 97; Pulse Ox 97% ; Pain 0/10; cp4 07/23 19:25 Body Mass Index 31.01 (95.25 kg, 175.26 cm) cp4 07/23 19:25 Pain Scale: Adult cp4 07/24 02:52 Pain Scale: Adult cp4 ED Course: 07/23 19:17 Patient arrived in ED. gm2 19:20 Ian Ibrahim PA is PHCP. cp 19:20 Johnathon Mckenzie MD is Attending Physician. cp 19:22 Triage completed. iw 19:23 Arm band placed on. iw 19:24 Jazmin Adam is Primary Nurse. cp4 19:28 Bed in low position. Side rails up X2. cp4 19:28 No provider procedures requiring assistance completed. cp4 19:47 Inserted saline lock: 20 gauge in right antecubital area, using aseptic technique. af3 Blood collected. Flushed with 10 mL NS. 19:47 Acetaminophen Sent. af3 19:47 Basic Metabolic Panel Sent. af3 19:47 CBC with Diff Sent. af3 19:47 ETOH Level Sent. af3 19:48 Hepatic Function Sent. af3 19:48 PT-INR Sent. af3 19:48 Ptt, Activated Sent. af3 19:48 Salicylate Sent. af3 19:48 Urinalysis w/ reflexes Sent. af3 19:48 Urine Drug Screen Sent. af3 19:49 EKG done, by bindery library technical assistant. af3 07/24 00:00 initiated transfer with [facility]. vk 00:30 [facility] called for nurse to nurse spoke with damon. vk 00:42 patient was accepted to [facility] per Damon to Dr. Kumar. vk 00:56 initiated transport with EMS spoke with Jasmina accepted patient. vk 02:53 intact, bleeding controlled, No redness/swelling at site. Pressure dressing applied. cp4 02:56 Provided Education on: suicidal ideation. cp4 Administered Medications: 07/23 20:30 Drug: Geodon IM 10 mg IM once Route: IM; Site: right deltoid; cp4 21:12 Follow up: Response: No adverse reaction cp4 20:31 Drug: Ativan IVP 1 mg IVP once Route: IVP; Site: right antecubital; cp4 21:12 Follow up: Response: No adverse reaction cp4 20:31 Drug: NS 0.9% IV 1000 ml IV at 999 ml/hr Per protocol Route: IV; Rate: 999 ml/hr; Site: cp4 right antecubital; 21:40 Follow up: IV Status: Completed infusion cp4 Medication: 19:28 VIS not applicable for this client. cp4 Point of Care Testing: Blood Glucose: 23:01 Blood Glucose: 264 mg/dL; cp4 Ranges: Outcome: 23:32 ER care complete, transfer ordered by . cp 07/24 02:53 Transferred by ground EMS Note: [facility] cp4 Condition: stable Instructed on the need for transfer, 02:57 Patient left the ED. cp4 Signatures: Joann Moreau RN RN Ian Pop PA PA cp Deepthi Schulte, MELINA RN ha1 Jazmin Adam cp4 Anamika Vásquez gm2 Hollie Siddiqui Ashley af3
[2024-07-24 03:21] VITALS: O2SAT 97
[2024-07-24 03:23] VITALS: BP 142/87; TEMP 97
--- NOTE | 2024-07-24 11:52 | EKG ---
Test Date: 2024-07-23 Test Time: 19:52:23 Cloth Drier: AF MEASUREMENT RESULTS: Intervals: Rate: 86 OR: 168 QRSD: 84 QT: 354 QTc: 423 [place]: P: 55 OR: 168 QRS: 41 T: 52 INTERPRETIVE STATEMENTS: Normal sinus rhythm Normal ECG Compared to ECG 07/07/2024 23:13:35 No significant changes Electronically Signed On 07-24-24 11:51:12 CDT by Noel Azul
== END 2024-07-24 02:57 ==
LOC: ER 19:15
DX: F51.05 Insomnia due to other mental disorder (principal); R45.851 Suicidal ideations; F31.9 Bipolar disorder, unspecified; F17.210 Nicotine dependence, cigarettes, uncomplicated
CPT/HCPCS: 96361; 93005; 85025; 81001; 80048; 36415; 85610; 82947 ×2; 80076; 85730; 80307; 96372; 96374; 99285; 80143; 80179; 82077; J3486; J7030

== ENCOUNTER 2024-08-15 23:39 | Emergency (ER) | payer OTHER ==
[2024-08-15] MEDS ORDERED: KETOROLAC 30 MG/ML INJ ONE (23:59)
[2024-08-15] MEDS ORDERED: ACETAMINOPHEN 500 MG TAB ONE (23:59)
[2024-08-15] MEDS ORDERED: methocarbamoL 500 MG TAB ONE (23:59)
--- NOTE | 2024-08-16 01:00 | ER ---
Nurse's Notes [facility] Name: Chi Kelley Age: 54 yrs Sex: Male : 1970 Arrival Date: 08/15/2024 Time: 23:39 Bed 6 Private MD: Diagnosis: Pain in left leg Presentation: 08/15 23:53 Chief complaint: Patient states: Slipped a few days ago, I don't remember exactly when, vc1 but now my left thigh and knee hurts and it shoots down to my foot. Coronavirus screen: Client denies travel out of the [place] in the last 14 days. At this time, the client does not indicate any symptoms associated with coronavirus-19. Ebola Screen: Patient negative for fever greater than or equal to 101.5 degrees Fahrenheit, and additional compatible Ebola Virus Disease symptoms Patient denies exposure to infectious person. Patient denies travel to an Ebola-affected area in the 21 days before illness onset. No symptoms or risks identified at this time. Initial Sepsis Screen: Does the patient meet any 2 criteria? No. Patient's initial sepsis screen is negative. Does the patient have a suspected source of infection? No. Patient's initial sepsis screen is negative. Risk Assessment: Do you want to hurt yourself or someone else? Patient reports no desire to harm self or others. Onset of symptoms is unknown. Care prior to arrival: Medication(s) given: Motrin, 2300. 23:53 Method Of Arrival: Wheelchair vc1 23:53 Acuity: DORIAN 3 vc1 Triage Assessment: 23:56 General: Appears in no apparent distress. uncomfortable, unkempt, well developed, vc1 Behavior is calm, cooperative, appropriate for age. Pain: Complains of pain in left quadriceps and left knee Pain radiates to left foot Pain currently is 9 out of 10 on a pain scale. Quality of pain is described as sharp. EENT: No deficits noted. No signs and/or symptoms were reported regarding the EENT system. Neuro: Level of Consciousness is awake, alert, obeys commands, Oriented to person, place, time, situation, Appropriate for age. Cardiovascular: Capillary refill < 3 seconds Patient's skin is warm and dry. Respiratory: Airway is patent Respiratory effort is even, unlabored, Respiratory pattern is regular, symmetrical. GI: No deficits noted. No signs and/or symptoms were reported involving the gastrointestinal system. : No deficits noted. No signs and/or symptoms were reported regarding the genitourinary system. Derm: Skin is intact, is healthy with good turgor, Skin is dry, Skin is normal, Skin temperature is warm. Musculoskeletal: Circulation, motion, and sensation intact. Range of motion: intact in all extremities, Reports pain in left leg. Historical: - Allergies: 23:55 cats; vc1 23:55 Hydrocodone-Acetaminophen; vc1 23:55 Vicodin; vc1 - PMHx: 23:55 Anxiety; Hypothyroidism; Bipolar disorder; chronic back pain; COPD; Chronic obstructive vc1 lung disease; depressive disorder; Glaucoma; Pre-Diabetes; - PSHx: 23:55 Cholecystectomy; vc1 - Immunization history:: Adult Immunizations up to date. - Infectious Disease History:: Denies. - Social history:: Smoking status: Patient reports the use of cigarette tobacco products. Screenin:54 [facility] ED Fall Risk Assessment (Adult) History of falling in the last 3 months, bm8 including since admission Yes- single mechanical fall (1 pt) Confusion or Disorientation No (0 pts) Intoxicated or Sedated No (0 pts) Impaired Gait Yes (1 pt) Mobility Assist Device Used No (0 pt) Altered Elimination No (0 pt) Score/Fall Risk Level 0 - 2 = Low Risk Oriented to surroundings, Maintained a safe environment, Educated pt \T\ family on fall prevention, incl call for assistance when getting out of bed, Assessed \T\ reinforced patient's understanding of fall precautions, Hourly rounding (assess needs \T\ fall precautionary measures) done, Used ambulatory aids as needed (educated on \T\ assisted with), Used gait belt as appropriate. Abuse screen: Denies threats or abuse. Nutritional screening: No deficits noted. Tuberculosis screening: No symptoms or risk factors identified. Assessment: 23:54 General: Appears in no apparent distress. comfortable, Behavior is calm, cooperative, bm8 appropriate for age. Pain: Complains of pain in left leg Pain currently is 8 out of 10 on a pain scale. Quality of pain is described as aching. Neuro: No deficits noted. Level of Consciousness is awake, alert, obeys commands, Oriented to person, place, time, situation, Appropriate for age. Cardiovascular: Denies chest pain, Capillary refill < 3 seconds in bilateral fingers Patient's skin is warm and dry. Respiratory: Airway is patent Respiratory effort is even, unlabored, Respiratory pattern is regular, symmetrical. GI: No signs and/or symptoms were reported involving the gastrointestinal system. : No signs and/or symptoms were reported regarding the genitourinary system. EENT: No signs and/or symptoms were reported regarding the EENT system. Derm: No signs and/or symptoms reported regarding the dermatologic system. Musculoskeletal: Circulation, motion, and sensation intact. Capillary refill < 3 seconds, in bilateral fingers. toes. Range of motion: intact in all extremities, Reports pain in left leg since unk.. Pain is 8 out of 10 on a pain scale. 08/16 01:00 Reassessment: Patient appears in no apparent distress at this time. Patient and/or bm8 family updated on plan of care and expected duration. Pain level reassessed. Patient is alert, oriented x 3, equal unlabored respirations, skin warm/dry/pink. Patient denies pain at this time. Patient states feeling better. Patient states symptoms have improved. Vital Signs: 08/15 23:53 BP 118 / 70; Pulse 91; Resp 17; Temp 98.2; Pulse Ox 97% ; Weight 99.79 kg; Height 5 ft. vc1 9 in. ; Pain 9/10; 08/16 01:00 BP 115 / 77; Pulse 84; Resp 17; Temp 98.2; Pulse Ox 97% ; Pain 0/10; bm8 08/15 23:53 Body Mass Index 32.49 (99.79 kg, 175.26 cm) vc1 08/15 23:53 Pain Scale: Adult vc1 08/16 01:00 Pain Scale: Adult bm8 William Coma Score: 08/15 23:54 Eye Response: spontaneous(4). Motor Response: obeys commands(6). Verbal Response: bm8 oriented(5). Total: 15. 08/16 01:00 Eye Response: spontaneous(4). Motor Response: obeys commands(6). Verbal Response: bm8 oriented(5). Total: 15. ED Course: 08/15 23:43 Patient arrived in ED. ra3 23:48 Johnathon Mckenzie MD is Attending Physician. ec2 23:49 NOE, MARLYS, RN is Primary Nurse. dd2 23:54 Patient has correct armband on for positive identification. Bed in low position. Call bm8 light in reach. Side rails up X 1. Client placed on continuous cardiac and pulse oximetry monitoring. NIBP monitoring applied. Pulse ox on. NIBP on. Door closed. Noise minimized. Pillow given. Verbal reassurance given. Head of bed elevated. 23:54 No provider procedures requiring assistance completed. Patient maintains SpO2 bm8 saturation greater than 95% on room air. 23:55 Triage completed. vc1 23:56 Arm band placed on right wrist. vc1 08/16 00:04 Patient did not have IV access during this emergency room visit. bm8 00:37 Femur Left XRAY In Process Unspecified. EDMS 00:37 Knee Left 3 View XRAY In Process Unspecified. EDMS 01:00 Provided Education on: Post ER care. bm8 Administered Medications: 00:03 Drug: Acetaminophen PO 1000 mg PO once Route: PO; bm8 00:44 Follow up: Response: No adverse reaction bm8 00:04 Drug: Ketorolac IM 30 mg IM once Route: IM; Site: right deltoid; bm8 00:45 Follow up: Response: No adverse reaction bm8 00:04 Drug: Methocarbamol PO 500 mg PO once Route: PO; bm8 00:44 Follow up: Response: No adverse reaction bm8 Medication: 08/15 23:54 VIS not applicable for this client. bm8 Outcome: 08/16 01:00 Discharge ordered by . ec2 01:00 Discharged to home ambulatory, bm8 01:01 Condition: stable bm8 01:01 Discharge instructions given to patient, Instructed on discharge instructions, follow up and referral plans. medication usage, safety practices, Demonstrated understanding of instructions, follow-up care, medications, Prescriptions given X 1, 01:04 Patient left the ED. bm8 Signatures: Dispatcher [employer] EDHI Danae Bloom RN RN vc1 Johnathon Mckenzie MD MD ec2 Kalie Handy ra3 Jerald Huang RN RN bm8 MARLYS LIU RN RN dd2
--- NOTE | 2024-08-16 01:00 | EDPHYS ---
Physician Documentation [facility] Name: Chi Kelley Age: 54 yrs Sex: Male : 1970 Arrival Date: 08/15/2024 Time: 23:39 Bed 6 Private MD: ED Physician Johnathon Mckenzie HPI: 08/15 23:55 This 54 yrs old Male presents to ER via Wheelchair with complaints of Leg ec2 Pain - Left. 23:55 Patient arrives today for evaluation of left leg pain. Patient complaining of left leg ec2 pain from the hip to the knee. Reports that he fell several days ago. Denies any back pain. Denies any head or neck pain. Patient reports otherwise pain is worsened with movement. Historical: - Allergies: 23:55 cats; vc1 23:55 Hydrocodone-Acetaminophen; vc1 23:55 Vicodin; vc1 - PMHx: 23:55 Anxiety; Hypothyroidism; Bipolar disorder; chronic back pain; COPD; Chronic obstructive vc1 lung disease; depressive disorder; Glaucoma; Pre-Diabetes; - PSHx: 23:55 Cholecystectomy; vc1 - Immunization history:: Adult Immunizations up to date. - Infectious Disease History:: Denies. - Social history:: Smoking status: Patient reports the use of cigarette tobacco products. ROS: 23:55 Constitutional: as per hpi ec2 Exam: 23:55 Constitutional: GEN: NAD Head: atraumatic Eyes: EOMI Ears: External ears are ec2 normal. CV: regular rate LUNGS: no respiratory distress ABD: non-distended SKIN: no evidence of rashes MSK: Left lower extremity with intact range of motion at the hip and knee, no deformities. Vital Signs: 23:53 BP 118 / 70; Pulse 91; Resp 17; Temp 98.2; Pulse Ox 97% ; Weight 99.79 kg; Height 5 ft. vc1 9 in. ; Pain 9/10; 08/16 01:00 BP 115 / 77; Pulse 84; Resp 17; Temp 98.2; Pulse Ox 97% ; Pain 0/10; bm8 08/15 23:53 Body Mass Index 32.49 (99.79 kg, 175.26 cm) vc1 08/15 23:53 Pain Scale: Adult vc1 08/16 01:00 Pain Scale: Adult bm8 Wliliam Coma Score: 08/15 23:54 Eye Response: spontaneous(4). Motor Response: obeys commands(6). Verbal Response: bm8 oriented(5). Total: 15. 08/16 01:00 Eye Response: spontaneous(4). Motor Response: obeys commands(6). Verbal Response: bm8 oriented(5). Total: 15. MDM: 08/15 23:50 Medical Screening Exam initiated ec2 23:55 Data reviewed: vital signs. ED course: Patient arrives today for evaluation of left ec2 lower extremity pain. Examination remarkable for well-appearing nontoxic vigorous otherwise in no acute distress.Will obtain radiographs of the left lower extremity, will treat the patient's pain. Suspect possible strain, doubt fracture, doubt sciatic . 08/16 00:59 ED course: Femur and knee x-ray independently reviewed and interpreted by me, shows no ec2 bony fracture. Will discharge home prescribe Robaxin. Return precautions given. 08/15 23:55 Order name: Femur Left XRAY ec2 08/15 23:55 Order name: Knee Left 3 View XRAY ec2 Administered Medications: 00:03 Drug: Acetaminophen PO 1000 mg PO once Route: PO; bm8 00:44 Follow up: Response: No adverse reaction bm8 00:04 Drug: Ketorolac IM 30 mg IM once Route: IM; Site: right deltoid; bm8 00:45 Follow up: Response: No adverse reaction bm8 00:04 Drug: Methocarbamol PO 500 mg PO once Route: PO; bm8 00:44 Follow up: Response: No adverse reaction bm8 Disposition Summary: 08/16/24 01:00 Discharge Ordered Notes: Location: Home ec2 Condition: Stable ec2 Diagnosis - Pain in left leg ec2 Followup: ec2 - With: Private Physician - When: - Reason: Re-evaluation by your physician Discharge Instructions: - Discharge Summary Sheet ec2 - Musculoskeletal Pain ec2 Forms: - Medication Reconciliation Form ec2 - Antibiotic Education ec2 - Prescription Opioid Use ec2 - Patient Portal Instructions ec2 - Leadership Thank You Letter ec2 Prescriptions: - methocarbamol 500 mg Oral tablet - take 1 tablet ORAL route 4 times per day; 30 tablet; Refills: 0, Product ec2 Selection Permitted Signatures: Dispatcher [employer] Danae Del Cid RN RN vc1 Johnathon Mckenzie MD MD ec2 Jerald Huang RN RN bm8 Corrections: (The following items were deleted from the chart) 08/15 23:57 23:55 ED course: Patient arrives today for evaluation of left lower extremity pain. ec2 Examination remarkable for well-appearing nontoxic vigorous otherwise in no acute distress.. ec2
[2024-08-16 01:08] VITALS: TEMP 98.2; O2SAT 97
[2024-08-16 01:09] VITALS: BP 115/77
--- NOTE | 2024-08-16 03:38 | RAD REPORT ---
EXAM: XR Left Knee, 3 Views CLINICAL HISTORY: Injury. TECHNIQUE: Three views of the left knee. COMPARISON: No relevant prior studies available. FINDINGS: Bones/joints: Minimal tricompartmental osteophytic lipping. No acute fracture. No appreciable joint effusion. No dislocation. Soft tissues: Unremarkable. IMPRESSION: No acute injury. Electronically signed by: Dianelys Campos MD 08/16/2024 02:33 AM CDT Due to temporary technical issues with the PACS/DocuTAP reporting system, reports are being juliette d by the in-house radiologist without review as a courtesy to ensure prompt reporting the interpreting radiologist is fully responsible for the content of the report. Transcribed Date/Time: 08/16/2024 3:38 AM
--- NOTE | 2024-08-16 03:38 | RAD REPORT ---
EXAM: XR Left Femur, 2 Views CLINICAL HISTORY: The patient is 54 years old and is Male; injury TECHNIQUE: Frontal and lateral views of the left femur. COMPARISON: No relevant prior studies available. FINDINGS: BONES/JOINTS: Unremarkable. No acute fracture. No dislocation. SOFT TISSUES: Unremarkable. IMPRESSION: Negative left femur radiographs. Electronically signed by: Lynn Maria MD 08/16/2024 02:19 AM CDT RP Due to temporary technical issues with the PACS/cafegive reporting system, reports are being juliette d by the in-house radiologist without review as a courtesy to ensure prompt reporting the interpreting radiologist is fully responsible for the content of the report. Transcribed Date/Time: 08/16/2024 3:38 AM
== END 2024-08-16 01:04 | disposition home or self-care (01) ==
LOC: ER 23:39
DX: M79.605 Pain in left leg (principal); W18.30XA Fall on same level, unspecified, initial encounter; Z72.0 Tobacco use
CPT/HCPCS: 96372; 99284

== ENCOUNTER 2024-08-21 03:29 | Emergency (ER) | payer OTHER ==
[2024-08-21] MEDS ORDERED: NA CHLORIDE 0.9% 2,000 ML ONE (03:48)
[2024-08-21 04:13] LABS: Absolute Basophils 0.1 K/uL (0-0.5); Absolute Eosinophils 0.3 K/uL (0-0.5); Absolute Lymphocytes (CBC) 3.2 K/uL (0.7-4.9); Absolute Monocytes 0.6 K/uL (0.1-1.3); Absolute Neutrophil 4.1 K/uL (1.8-8.0); Basophils % 0.7 % (0-1.3); Eosinophils % 3.5 % (0-4.4); Hematocrit 38.7 % (39.6-49.0); Hemoglobin 13.1 g/dL (13.6-17.9); MCH 31.5 pg (27.0-35.0); MCV 92.7 fL (80-100); MPV 9.7 fL (7.6-11.3); Monocytes % 7.1 % (3.3-12.3); Neutrophils % 49.7 % (41.7-73.7); Platelets 163 thou/uL (152-406); RBC Red Blood Cell Count 4.18 M/uL (4.33-5.43)
[2024-08-21 04:29] LABS: Albumin 3.3 g/dL (3.4-5.0); Albumin/Globulin Ratio 0.9 (1.1-1.8); Anion Gap 9.5 mEq/L (5.0-15.0); Bilirubin Total 0.2 mg/dL (0.2-1.0); Globulin 3.5 g/dL (2.3-3.5); Protein, Total 6.8 g/dL (6.4-8.2)
[2024-08-21 04:30] LABS: Potassium 3.5 mEq/L (3.5-5.1)
--- NOTE | 2024-08-21 06:17 | EDPHYS ---
Physician Documentation [facility] Name: Chi Kelley Age: 54 yrs Sex: Male : 1970 Arrival Date: 08/21/2024 Time: 03:29 Bed 14 Private MD: ED Physician Jarret Arndt HPI: 08/21 03:39 This 54 yrs old Male presents to ER via Unassigned with complaints of High sp4 Blood Sugar. 08/22 02:03 Patient presents with complaint of elevated blood sugar and dizziness. History of sp4 poorly controlled DM type II. Historical: - Allergies: 08/21 04:14 cats; rg5 04:14 Hydrocodone-Acetaminophen; rg5 04:14 Vicodin; rg5 - Home Meds: 04:14 cyclobenzaprine 10 mg Oral tablet 1 tab every 8 hours for Muscle Spasm [Active]; rg5 diclofenac sodium (bulk) 75 mg tab [Active]; glipizide 5 mg Oral Tablet [Active]; hydroxyzine pamoate 50 mg Oral capsule 1 cap every day at bedtime for Anxiety [Active]; mirtazapine 15 mg Oral tablet 1 tab every day at bedtime [Active]; Nexium 20 mg Oral capsule [Active]; olanzapine 15 mg Oral tablet 1 tab every day at bedtime [Active]; trazodone 50 mg Oral tablet 1 tab every day at bedtime [Active]; sertraline 100 mg Oral tablet 2 tabs daily [Active]; - PMHx: 04:14 Anxiety; Bipolar disorder; COPD; depressive disorder; Pre-Diabetes; Hypothyroidism; rg5 Glaucoma; Chronic obstructive lung disease; chronic back pain; - PSHx: 04:14 Cholecystectomy; rg5 - Immunization history:: Adult Immunizations not up to date. - Infectious Disease History:: Denies. - Social history:: Smoking status: Patient reports the use of cigarette tobacco products, smokes one-half pack cigarettes per day. - Family history:: not pertinent. ROS: 08/22 02:03 Constitutional: Negative for fever, chills, and weight loss, positive dizziness sp4 All other systems are negative, Exam: 02:03 Constitutional: This is a well developed, well nourished patient who is awake, alert, sp4 and in no acute distress. Head/Face: Normocephalic, atraumatic. Eyes: Pupils equal round and reactive to light, extra-ocular motions intact. Lids and lashes normal. Conjunctiva and sclera are not injected. Cornea within normal limits. Periorbital areas with no swelling, redness, or edema. ENT: Nares patent. No nasal discharge, no septal abnormalities noted. Tympanic membranes are normal and external auditory canals are clear. Oropharynx with no redness, swelling, or masses, exudates, or evidence of obstruction, uvula midline. Mucous membranes moist. Neck: Trachea midline, no thyromegaly or masses palpated, and no cervical lymphadenopathy. Supple, full range of motion without nuchal rigidity, or vertebral point tenderness. Chest/axilla: Normal chest wall appearance and motion. Nontender with no deformity. No lesions are appreciated. Cardiovascular: Regular rate and rhythm with a normal S1 and S2. No gallops, murmurs, or rubs. Normal PMI, no JVD. No pulse deficits. Respiratory: Lungs have equal breath sounds bilaterally, clear to auscultation and percussion. No rales, rhonchi or wheezes noted. No increased work of breathing, no retractions or nasal flaring. Abdomen/GI: Soft, with normal bowel sounds. No distension or tympany. No guarding or rebound. No evidence of tenderness throughout. Back: No spinal tenderness. No costovertebral tenderness. Skin: Warm, dry with normal turgor. Normal color with no rashes, no lesions, and no evidence of cellulitis. MS/ Extremity: Pulses equal, no cyanosis. Neurovascular intact. Full, normal range of motion. Neuro: Awake and alert, GCS 15, oriented to person, place, time, and situation. Cranial nerves II-XII grossly intact. Motor strength 5/5 in all extremities. Sensory grossly intact. Psych: Awake, alert, with orientation to person, place and time. Behavior, mood, and affect are within normal limits Vital Signs: 08/21 03:35 BP 128 / 76; Pulse 81; Resp 16; Temp 98(O); Pulse Ox 97% ; Weight 99.79 kg; Height 5 rg5 ft. 9 in. ; 04:18 BP 126 / 61; Pulse 79; Resp 16; Pulse Ox 97% on R/A; rg5 05:58 BP 121 / 72; Pulse 77; Resp 17; Pulse Ox 100% on R/A; rg5 03:35 Body Mass Index 32.49 (99.79 kg, 175.26 cm) rg5 [place] Coma Score: 08/22 02:03 Eye Response: spontaneous(4). Motor Response: obeys commands(6). Verbal Response: sp4 oriented(5). Total: 15. MDM: 08/21 03:38 Medical Screening Exam initiated sp4 08/22 02:05 Differential diagnosis: DKA, hyperglycemia, hypoglycemic episode, new onset diabetes. sp4 Data reviewed: vital signs, nurses notes, lab test result(s). 02:05 Consideration of Admission/Observation Escalation of care including sp4 admission/observation considered. ED course: Blood sugar is controlled, stable for discharge home. . 08/21 03:38 Order name: CBC with Diff; Complete Time: 04:17 sp4 08/21 03:38 Order name: CMP; Complete Time: 06:12 sp4 08/21 03:38 Order name: Lipase; Complete Time: 06:12 sp4 08/21 05:42 Order name: Glucose, Ancillary Testing; Complete Time: 06:12 EDMS 08/21 03:38 Order name: IV Saline Lock; Complete Time: 03:43 sp4 08/21 03:38 Order name: Labs collected and sent; Complete Time: 03:57 sp4 Administered Medications: 08/21 03:57 Drug: NS 0.9% IV 1000 ml IV at 1000 ml once; to be given as a bolus over 60 minutes rg5 Route: IV; Rate: 1000 ml; Site: right antecubital; 05:00 Follow up: IV Status: Completed infusion; IV Intake: 1000ml rg5 03:57 Drug: NS 0.9% IV 1000 ml IV at 1000 ml once; to be given as a bolus over 60 minutes rg5 Route: IV; Rate: 1000 ml; Site: right antecubital; 05:00 Follow up: IV Status: Completed infusion; IV Intake: 1000ml rg5 Disposition: 08/22 02:06 Chart complete. sp4 Disposition Summary: 08/21/24 06:17 Discharge Ordered Notes: Location: Home sp4 Problem: new sp4 Symptoms: have improved sp4 Condition: Stable sp4 Diagnosis - Type 2 diabetes mellitus with hyperglycemia sp4 Followup: sp4 - With: Private Physician - When: 7 - 10 days - Reason: Recheck today's complaints Discharge Instructions: - Discharge Summary Sheet sp4 - Hyperglycemia sp4 Forms: - Patient Portal Instructions sp4 Prescriptions: - Metformin 1,000 mg Oral tablet - take 1 tablet ORAL route every 12 hours with morning and evening meals; 180 sp4 tablet; Refills: 0, Product Selection Permitted Signatures: Dispatcher [employer] Jarret Muñiz MD MD sp4 Tony Buenrostro RN RN rg5
--- NOTE | 2024-08-21 06:17 | ER ---
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 rg5 03:35 Method Of Arrival: EMS: [facility] rg5 03:35 Coronavirus screen: Vaccine status: Patient reports being unvaccinated. Ebola Screen: rg5 Patient negative for fever greater than or equal to 101.5 degrees Fahrenheit, and additional compatible Ebola Virus Disease symptoms. Initial Sepsis Screen: Does the patient meet any 2 criteria? No. Patient's initial sepsis screen is negative. Does the patient have a suspected source of infection? No. Patient's initial sepsis screen is negative. Risk Assessment: Do you want to hurt yourself or someone else? Patient reports no desire to harm self or others. Onset of symptoms was August 21, 2024. Care prior to arrival: IV initiated. 20 GA, in the right antecubital area, Glucose check: 400. 03:35 Acuity: DORIAN 3 rg5 Triage Assessment: 04:14 General: Appears in no apparent distress. Behavior is calm, cooperative, appropriate rg5 for age. Pain: Denies pain. EENT: No deficits noted. Neuro: Level of Consciousness is awake, alert, obeys commands, Oriented to person, place, time. Cardiovascular: Heart tones S1 S2 Patient's skin is warm and dry. Respiratory: Airway is patent Trachea midline Respiratory effort is even, unlabored. GI: Abdomen is round. : No signs and/or symptoms were reported regarding the genitourinary system. Derm: Skin is intact, Skin is dry, Skin is normal. Musculoskeletal: Circulation, motion, and sensation intact. Range of motion: intact in all extremities. Historical: - Allergies: 04:14 cats; rg5 04:14 Hydrocodone-Acetaminophen; rg5 04:14 Vicodin; rg5 - Home Meds: 04:14 cyclobenzaprine 10 mg Oral tablet 1 tab every 8 hours for Muscle Spasm [Active]; rg5 diclofenac sodium (bulk) 75 mg tab [Active]; glipizide 5 mg Oral Tablet [Active]; hydroxyzine pamoate 50 mg Oral capsule 1 cap every day at bedtime for Anxiety [Active]; mirtazapine 15 mg Oral tablet 1 tab every day at bedtime [Active]; Nexium 20 mg Oral capsule [Active]; olanzapine 15 mg Oral tablet 1 tab every day at bedtime [Active]; trazodone 50 mg Oral tablet 1 tab every day at bedtime [Active]; sertraline 100 mg Oral tablet 2 tabs daily [Active]; - PMHx: 04:14 Anxiety; Bipolar disorder; COPD; depressive disorder; Pre-Diabetes; Hypothyroidism; rg5 Glaucoma; Chronic obstructive lung disease; chronic back pain; - PSHx: 04:14 Cholecystectomy; rg5 - Immunization history:: Adult Immunizations not up to date. - Infectious Disease History:: Denies. - Social history:: Smoking status: Patient reports the use of cigarette tobacco products, smokes one-half pack cigarettes per day. - Family history:: not pertinent. Screenin:18 [facility] ED Fall Risk Assessment (Adult) History of falling in the last 3 months, rg5 including since admission No falls in past 3 months (0 pts) Confusion or Disorientation No (0 pts) Intoxicated or Sedated No (0 pts) Impaired Gait No (0 pts) Mobility Assist Device Used No (0 pt) Altered Elimination No (0 pt) Score/Fall Risk Level 0 - 2 = Low Risk Oriented to surroundings, Maintained a safe environment, Hourly rounding (assess needs \T\ fall precautionary measures) done. Abuse screen: Denies threats or abuse. Nutritional screening: No deficits noted. Tuberculosis screening: No symptoms or risk factors identified. Assessment: 04:18 Reassessment: see triage assessment. rg5 05:00 Reassessment: Patient and/or family updated on plan of care and expected duration. Pain rg5 level reassessed. Patient is alert, oriented x 3, equal unlabored respirations, skin warm/dry/pink. Patient states feeling better. 06:00 Reassessment: Patient and/or family updated on plan of care and expected duration. Pain rg5 level reassessed. Patient is alert, oriented x 3, equal unlabored respirations, skin warm/dry/pink. Patient states feeling better. Vital Signs: 03:35 BP 128 / 76; Pulse 81; Resp 16; Temp 98(O); Pulse Ox 97% ; Weight 99.79 kg; Height 5 rg5 ft. 9 in. ; 04:18 BP 126 / 61; Pulse 79; Resp 16; Pulse Ox 97% on R/A; rg5 05:58 BP 121 / 72; Pulse 77; Resp 17; Pulse Ox 100% on R/A; rg5 03:35 Body Mass Index 32.49 (99.79 kg, 175.26 cm) rg5 [place] Coma Score: 08/22 02:03 Eye Response: spontaneous(4). Motor Response: obeys commands(6). Verbal Response: sp4 oriented(5). Total: 15. ED Course: 08/21 03:33 Patient arrived in ED. jj6 03:38 Jarret Arndt MD is Attending Physician. sp4 03:42 Tony Buenrostro RN is Primary Nurse. rg5 04:14 Triage completed. rg5 04:18 Patient has correct armband on for positive identification. Bed in low position. Call rg5 light in reach. Side rails up X 1. Door closed. Noise minimized. Warm blanket given. Verbal reassurance given. 04:18 No provider procedures requiring assistance completed. Maintain EMS IV. Dressing rg5 intact. Good blood return noted. Site clean \T\ dry. Gauge \T\ site: 20. Flushed with 10 mL NS lab sent. IV. 06:49 Provided Education on: post er care. rg5 06:49 IV discontinued, bleeding controlled, No redness/swelling at site. Pressure dressing rg5 applied. Administered Medications: 03:57 Drug: NS 0.9% IV 1000 ml IV at 1000 ml once; to be given as a bolus over 60 minutes rg5 Route: IV; Rate: 1000 ml; Site: right antecubital; 05:00 Follow up: IV Status: Completed infusion; IV Intake: 1000ml rg5 03:57 Drug: NS 0.9% IV 1000 ml IV at 1000 ml once; to be given as a bolus over 60 minutes rg5 Route: IV; Rate: 1000 ml; Site: right antecubital; 05:00 Follow up: IV Status: Completed infusion; IV Intake: 1000ml rg5 Medication: 04:18 VIS not applicable for this client. rg5 Intake: 05:00 IV: 1000ml; Total: 1000ml. rg5 05:00 IV: 1000ml; Total: 2000ml. rg5 Outcome: 06:17 Discharge ordered by . sp4 06:49 Discharged to home ambulatory, rg5 06:49 Condition: stable 06:49 Discharge instructions given to patient, Instructed on discharge instructions, follow up and referral plans. Demonstrated understanding of instructions, follow-up care, Prescriptions given X 1, 06:51 Patient left the ED. rg5 Signatures: Renita Gilliland jj6 Jarret Arndt MD MD sp4 Tony Buenrostro, RN RN rg5
[2024-08-21 06:56] VITALS: TEMP 98
[2024-08-21 06:59] VITALS: BP 121/72; O2SAT 100
== END 2024-08-21 06:51 | disposition home or self-care (01) ==
LOC: ER 03:29
DX: E11.65 Type 2 diabetes mellitus with hyperglycemia (principal); J44.9 Chronic obstructive pulmonary disease, unspecified; E03.9 Hypothyroidism, unspecified; F17.210 Nicotine dependence, cigarettes, uncomplicated
CPT/HCPCS: 85025; 36415; 82947; 83690; 80053; J7030; 96360; 99284

== ENCOUNTER 2024-09-11 21:51 | Emergency (ER) | payer OTHER ==
[2024-09-11] MEDS ORDERED: CEFAZOLIN SODIUM 1 GM/VIAL ONE (22:35)
[2024-09-11] MEDS ORDERED: FENTANYL CITR 100 MCG/2 ML ONE (22:35)
[2024-09-11] MEDS ORDERED: NA CHLORIDE 0.9% 100 ML ONE (22:38)
[2024-09-11 23:00] LABS: Absolute Basophils 0.1 K/uL (0-0.5); Absolute Eosinophils 0.3 K/uL (0-0.5); Absolute Lymphocytes (CBC) 3.4 K/uL (0.7-4.9); Absolute Monocytes 0.6 K/uL (0.1-1.3); Absolute Neutrophil 4.3 K/uL (1.8-8.0); Basophils % 1.1 % (0-1.3); Eosinophils % 3.6 % (0-4.4); Hemoglobin 13.8 g/dL (13.6-17.9); Lymphocytes % 38.6 % (15.3-44.8); MCH 31.8 pg (27.0-35.0); MCHC 34.4 g/dL (32.0-36.0); MCV 92.3 fL (80-100); Monocytes % 7.2 % (3.3-12.3); Neutrophils % 49.5 % (41.7-73.7); Nucleated Red Blood Cells % 0.1 % (0-0); Platelets 175 thou/uL (152-406); RBC Red Blood Cell Count 4.34 M/uL (4.33-5.43); Red Cell Distribution Width 13.1 % (12.1-15.2)
[2024-09-11 23:34] LABS: Albumin 3.5 g/dL (3.4-5.0); Anion Gap 10.5 mEq/L (5.0-15.0); Bilirubin Total 0.3 mg/dL (0.2-1.0); Globulin 3.6 g/dL (2.3-3.5); Potassium 3.5 mEq/L (3.5-5.1); Protein, Total 7.1 g/dL (6.4-8.2)
--- NOTE | 2024-09-11 23:46 | ER ---
Nurse's Notes [facility] Name: Chi Kelley Age: 54 yrs Sex: Male : 1970 Arrival Date: 09/11/2024 Time: 21:51 Bed 17 Private MD: Diagnosis: Cellulitis of left lower extremity Presentation: 09/11 22:10 Chief complaint: Patient states: wound pain and drainage. Coronavirus screen: Client kj2 denies travel out of the [place] in the last 14 days. Ebola Screen: No symptoms or risks identified at this time. Initial Sepsis Screen: Does the patient meet any 2 criteria? No. Patient's initial sepsis screen is negative. Does the patient have a suspected source of infection? No. Patient's initial sepsis screen is negative. Risk Assessment: Do you want to hurt yourself or someone else? Patient reports no desire to harm self or others. Onset of symptoms was September 08, 2024. 22:10 Method Of Arrival: Ambulatory [facility] 22:10 Acuity: DORIAN 3 kj2 Triage Assessment: 22:10 General: Appears in no apparent distress. Behavior is calm, cooperative. Pain: kj2 Complains of pain in left leg Pain currently is 7 out of 10 on a pain scale. Neuro: Level of Consciousness is awake, alert, obeys commands, Oriented to person, place, time, situation. Cardiovascular: Patient's skin is warm and dry. Respiratory: Airway is patent Respiratory effort is unlabored. GI: No signs and/or symptoms were reported involving the gastrointestinal system. : No signs and/or symptoms were reported regarding the genitourinary system. Derm: Wound noted left leg Wound is open wound approximatley 1 inch in length and 0.2 inch width, scant clear drainage, bed bloody. Historical: - Allergies: 23:04 cats; kj2 23:04 Hydrocodone-Acetaminophen; kj2 23:04 Vicodin; kj2 - Home Meds: 23:23 cyclobenzaprine 10 mg Oral tablet 1 tab every 8 hours for Muscle Spasm [Active]; kj2 diclofenac sodium (bulk) 75 mg tab [Active]; glipizide 5 mg Oral tablet [Active]; hydroxyzine pamoate 50 mg Oral capsule 1 cap every day at bedtime for Anxiety [Active]; mirtazapine 15 mg Oral tablet 1 tab every day at bedtime [Active]; Nexium 20 mg Oral capsule [Active]; olanzapine 15 mg Oral tablet 1 tab every day at bedtime [Active]; omeprazole 40 mg Oral capsule 1 cap daily [Active]; quetiapine 400 mg Oral tablet 1 tab every day at bedtime [Active]; sertraline 100 mg Oral tablet 2 tabs daily [Active]; trazodone 50 mg Oral tablet 1 tab every day at bedtime [Active]; - PMHx: 23:24 Anxiety; Bipolar disorder; chronic back pain; Chronic obstructive lung disease; COPD; kj2 depressive disorder; Glaucoma; Hypothyroidism; Pre-Diabetes; - PSHx: 23:24 Cholecystectomy; kj2 - Immunization history:: Adult Immunizations unknown. - Infectious Disease History:: Denies. - Social history:: Smoking status: Patient reports the use of cigarette tobacco products, smokes one-half pack cigarettes per day. Screenin:10 [facility] ED Fall Risk Assessment (Adult) History of falling in the last 3 months, kj2 including since admission No falls in past 3 months (0 pts) Confusion or Disorientation No (0 pts) Intoxicated or Sedated No (0 pts) Impaired Gait No (0 pts) Mobility Assist Device Used No (0 pt) Altered Elimination No (0 pt) Score/Fall Risk Level 0 - 2 = Low Risk Maintained a safe environment, Hourly rounding (assess needs \T\ fall precautionary measures) done. Abuse screen: Denies threats or abuse. Denies injuries from another. Nutritional screening: No deficits noted. Tuberculosis screening: No symptoms or risk factors identified. Assessment: 22:10 General: see triage assessment. kj2 23:10 Reassessment: Patient appears in no apparent distress at this time. Patient and/or kj2 family updated on plan of care and expected duration. Pain level reassessed. Patient is alert, oriented x 3, equal unlabored respirations, skin warm/dry/pink. 23:47 Reassessment: Patient appears in no apparent distress at this time. Patient and/or kj2 family updated on plan of care and expected duration. Pain level reassessed. Patient is alert, oriented x 3, equal unlabored respirations, skin warm/dry/pink. Vital Signs: 22:10 BP 127 / 77; Pulse 88; Resp 18; Temp 97.9; Pulse Ox 97% on R/A; kj2 22:15 Weight 99.79 kg; Height 5 ft. 9 in. ; kj2 22:31 BP 127 / 77; Pulse 88; Resp 17; Temp 97.9(O); Pulse Ox 97% on R/A; vk 23:10 BP 123 / 73; Pulse 79; Pulse Ox 94% on R/A; kj2 23:48 BP 124 / 78; Pulse 78; Resp 18; Temp 98; Pulse Ox 97% on R/A; kj2 22:15 Body Mass Index 32.49 (99.79 kg, 175.26 cm) kj2 ED Course: 21:52 Patient arrived in ED. jj6 21:52 Bobby Fox MD is Attending Physician. rt 22:10 Patient has correct armband on for positive identification. Bed in low position. Call kj2 light in reach. Adult w/ patient. Provided Education on: call light, fall precautions. 22:10 Arm band placed on Patient placed in an exam room, on a stretcher. kj2 22:23 Keri Hollingsworth, RN is Primary Nurse. kj2 22:50 Inserted saline lock: 20 gauge in right antecubital area, using aseptic technique. kj2 Blood collected. Flushed with 10 mL NS. 22:51 CMP Sent. kj2 22:51 CBC with Diff Sent. kj2 23:03 Triage completed. kj2 23:10 No provider procedures requiring assistance completed. kj2 23:49 IV discontinued, intact, bleeding controlled, No redness/swelling at site. Pressure kj2 dressing applied. Administered Medications: 22:50 Drug: fentaNYL (PF) IVP 75 mcg IVP once Route: IVP; Site: right antecubital; kj2 23:55 Follow up: Response: No adverse reaction kj2 22:58 Drug: ceFAZolin IVPB 1 grams IVPB once Route: IVPB; Site: right antecubital; kj2 23:55 Follow up: Response: No adverse reaction; IV Status: Completed infusion; IV Intake: kj2 100ml Medication: 23:48 VIS not applicable for this client. kj2 Intake: 23:55 IV: 100ml; Total: 100ml. kj2 Outcome: 23:46 Discharge ordered by . rt 23:49 Discharged to home ambulatory, with family, kj2 23:49 Condition: stable 23:49 Discharge instructions given to patient, Instructed on discharge instructions, follow up and referral plans. Demonstrated understanding of instructions, follow-up care, 23:56 Patient left the ED. kj2 Signatures: Renita Gilliland jj6 Bobby Fox MD MD rt Kruse, Vivian vk Jordan, Krystal, RN RN kj2
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
[2024-09-12 07:06] VITALS: BP 124/78; TEMP 98; O2SAT 97
== END 2024-09-11 23:56 | disposition home or self-care (01) ==
LOC: ER 21:51
DX: L03.116 Cellulitis of left lower limb (principal); F17.210 Nicotine dependence, cigarettes, uncomplicated; F41.9 Anxiety disorder, unspecified; J44.9 Chronic obstructive pulmonary disease, unspecified; G89.29 Other chronic pain; Z88.5 Allergy status to narcotic agent
CPT/HCPCS: 96365; 85025; 36415; 80053; 96375; 99284; J3010; J0690

== ENCOUNTER 2024-09-26 13:23 | Emergency (ER) | payer OTHER ==
[2024-09-26 14:13] LABS: Absolute Basophils 0.1 K/uL (0-0.5); Absolute Eosinophils 0.2 K/uL (0-0.5); Absolute Lymphocytes (CBC) 2.7 K/uL (0.7-4.9); Absolute Monocytes 0.5 K/uL (0.1-1.3); Absolute Neutrophil 4.2 K/uL (1.8-8.0); Basophils % 0.7 % (0-1.3); Hematocrit 40.3 % (39.6-49.0); Hemoglobin 13.6 g/dL (13.6-17.9); Lymphocytes % 34.7 % (15.3-44.8); MCH 31.5 pg (27.0-35.0); MCHC 33.8 g/dL (32.0-36.0); MCV 93.1 fL (80-100); Monocytes % 6.6 % (3.3-12.3); Platelets 159 thou/uL (152-406); RBC Red Blood Cell Count 4.32 M/uL (4.33-5.43)
[2024-09-26 14:19] LABS: PT Prothrombin Time 11.5 SECONDS (9.4-12.5); Protime INR 1.03
[2024-09-26] MEDS ORDERED: ALPRAZOLAM 0.5 MG TABLET ONE (14:19)
[2024-09-26 14:27] LABS: Specific Gravity > 1.030 (1.005-1.030); Urine Bilirubin NEGATIVE (Negative); Urine Blood Negative (Negative); Urine Clarity Clear (Clear); Urine Color Light-Yellow (Yellow); Urine Glucose 4+ (Over) (Negative); Urine Ketones NEGATIVE (Negative); Urine Microscopic Reflex YN NO UMIC; Urine Nitrite NEGATIVE (Negative); Urine Protein NEGATIVE (Negative); Urine Urobilinogen Normal (Normal); Urine pH 6.5 (5.0-7.0)
[2024-09-26 14:32] LABS: ALT/SGPT 83 U/L (16-61); AST/SGOT 59 U/L (15-37); Albumin 3.6 g/dL (3.4-5.0); Alkaline Phosphatase 97 U/L (45-117); Anion Gap 9.5 mEq/L (5.0-15.0); BUN Blood Urea Nitrogen 10 mg/dL (7-18); Bicarbonate 26 mEq/L (21-32); Bilirubin Total 0.5 mg/dL (0.2-1.0); Globulin 3.6 g/dL (2.3-3.5); Glomerular Filtration Rate 74 ml/min (=/>90); Glucose Level 395 mg/dL (74-106); Potassium 3.5 mEq/L (3.5-5.1); Protein, Total 7.2 g/dL (6.4-8.2); Sodium Level 135 mEq/L (136-145)
[2024-09-26 14:33] LABS: Bilirubin Direct < 0.2 mg/dL (0-0.2); Bilirubin Indirect, Calculated 0.3 mg/dL (0.2-0.8)
[2024-09-26 14:37] LABS: Barbiturates NEGATIVE (NEGATIVE); Benzodiazepines NEGATIVE (NEGATIVE); Cocaine NEGATIVE (NEGATIVE); METHAMPHETAM NEGATIVE (NEGATIVE); Methadone NEGATIVE (NEGATIVE); Opiates NEGATIVE (NEGATIVE); Phencyclidine NEGATIVE (NEGATIVE); THC Cannibis NEGATIVE (NEGATIVE)
--- NOTE | 2024-09-26 14:42 | ER ---
Nurse's Notes [facility] Name: Chi Kelley Age: 54 yrs Sex: Male : 1970 Arrival Date: 09/26/2024 Time: 13:23 Bed 17 Private MD: Diagnosis: Suicidal ideation, depression Presentation: 09/26 13:45 Chief complaint: Patient states: Si - reports suicide ideations \R\1 weeks. Mentions he go2 took a zoloft today prior to ER arrival hoping it would help. Says he plans on cutting his wrists or take all of his medications at once. Denies visual or auditory hallucinations. Denies HI. Non compliant with his meds, per patient. Coronavirus screen: Vaccine status: Patient reports receiving the 2nd dose of the covid vaccine. Client denies travel out of the [place] in the last 14 days. Ebola Screen: No symptoms or risks identified at this time. Initial Sepsis Screen: Does the patient meet any 2 criteria? No. Patient's initial sepsis screen is negative. Does the patient have a suspected source of infection? No. Patient's initial sepsis screen is negative. Risk Assessment: Do you want to hurt yourself or someone else? Patient reports no desire to harm self or others. Onset of symptoms was September 17, 2024. Care prior to arrival: None. Activity prior to arrival: None. 13:45 Method Of Arrival: Law Enforcement: [facility] go2 13:45 Acuity: DORIAN 2 go2 Triage Assessment: 13:53 General: Appears in no apparent distress. comfortable. General: Behavior is calm, go2 cooperative, quiet. Pain: Denies pain. EENT: No deficits noted. Neuro: No deficits noted. Cardiovascular: No deficits noted. Respiratory: No deficits noted. GI: No deficits noted. : No deficits noted. Derm: No deficits noted. Musculoskeletal: No deficits noted. Historical: - Immunization history:: Adult Immunizations up to date, Last tetanus immunization: not indicated for visit today. - Infectious Disease History:: Denies. - Social history:: Smoking status: Patient reports the use of cigarette tobacco products, smokes two packs cigarettes per day. Screenin:56 [facility] ED Fall Risk Assessment (Adult) History of falling in the last 3 months, go2 including since admission No falls in past 3 months (0 pts) Confusion or Disorientation No (0 pts) Intoxicated or Sedated No (0 pts) Impaired Gait No (0 pts) Mobility Assist Device Used No (0 pt) Altered Elimination No (0 pt) Score/Fall Risk Level 0 - 2 = Low Risk. Abuse screen: Denies threats or abuse. Nutritional screening: No deficits noted. Tuberculosis screening: No symptoms or risk factors identified. Assessment: 13:55 General: Appears in no apparent distress. comfortable. Pain: Denies pain. Neuro: No go2 deficits noted. Cardiovascular: No deficits noted. Respiratory: No deficits noted. GI: No deficits noted. : No deficits noted. EENT: No deficits noted. Derm: No deficits noted. Musculoskeletal: No deficits noted. Vital Signs: 13:45 BP 135 / 79; Pulse 77; Resp 16; Temp 98; Pulse Ox 99% ; Weight 97.52 kg; Height 5 ft. 9 go2 in. ; 13:54 BP 135 / 79; Pulse 77; Resp 16; Temp 98; Pulse Ox 98% ; Weight 97.52 kg; Height 5 ft. 9 go2 in. ; 13:54 Body Mass Index 31.75 (97.52 kg, 175.26 cm) go2 ED Course: 13:29 Patient arrived in ED. bd 13:29 Garett Torres MD is Attending Physician. sp3 13:36 Linda Leal, MELINA is Primary Nurse. ap3 13:42 Patient has correct armband on for positive identification. Allergy band placed. ap3 Patient is placed in psych hold. 13:52 Triage completed. go2 14:01 Inserted saline lock: 20 gauge in right antecubital area, using aseptic technique. go2 14:06 Initial lab(s) drawn, by me, sent to lab. EKG done, by ED staff. tm3 14:48 faxed chart to [facility] [place]. bd 14:53 Minnie Hatch, MELINA is Primary Nurse. go2 16:11 No provider procedures requiring assistance completed. Patient transferred, IV remains ap3 in place. Administered Medications: 14:22 Drug: ALPRAZolam PO Tablet 0.5 mg PO once Route: PO; go2 15:12 Follow up: Response: No adverse reaction; Anxiety decreased ap3 15:09 Drug: Insulin Regular Human Sub-Q 5 units Sub-Q once {Co-Signature: ss (vic Wasserman RN).} Route: Sub-Q; Site: left upper arm; Medication: 13:56 VIS not applicable for this client. go2 Outcome: 14:41 ER care complete, transfer ordered by . sp3 16:10 Transferred by ground EMS to other acute care facility: [facility] [place]. jl7 16:10 Condition: stable 16:10 Discharge instructions given to patient, Instructed on the need for transfer, Demonstrated understanding of instructions, 16:29 Patient left the ED. ap3 Signatures: Maggi Tian Toni tm3 Andrew Jewell RN RN jl7 Linda Leal RN RN ap3 Garett Torres MD MD sp3 Minnie Hatch RN RN go2 Julissa Wasserman RN ss Corrections: (The following items were deleted from the chart) 13:53 13:53 PMHx: Hypothyroidism; go2 go2 13:53 13:53 PMHx: COPD; go2 go2 13:53 13:53 PMHx: chronic back pain; go2 go2 13:53 13:53 PMHx: Glaucoma; go2 go2 13:53 13:53 PMHx: Anxiety; go2 go2 13:53 13:53 PMHx: Chronic obstructive lung disease; go2 go2 13:53 13:53 PMHx: Pre-Diabetes; go2 go2 13:53 13:53 PMHx: depressive disorder; go2 go2 13:53 13:53 PMHx: Bipolar disorder; go2 go2 13:53 13:53 PSHx: Cholecystectomy; go2 go2
--- NOTE | 2024-09-26 14:42 | EDPHYS ---
Physician Documentation [facility] Name: Chi Kelley Age: 54 yrs Sex: Male : 1970 Arrival Date: 09/26/2024 Time: 13:23 Bed 17 Private MD: ED Physician Garett Torres HPI: 09/26 13:55 This 54 yrs old Male presents to ER via Law Enforcement with complaints of Suicidal sp3 Ideation. 13:55 54-year-old male with prior depression and psychosis/schizophrenia currently on Zoloft sp3 now presents to the ED with chief complaint suicidal ideation for 1 week with plan of overdosing or slitting his wrists. Patient has 1 prior overdose in the past. Patient was brought in under [place] with [place] [employer]. He denies any other somatic symptoms including fever, headache, chest pain, shortness breath, abdominal pain, vomit, diarrhea, fever or any other signs or symptoms on ROS at this time.. Historical: - Immunization history:: Adult Immunizations up to date, Last tetanus immunization: not indicated for visit today. - Infectious Disease History:: Denies. - Social history:: Smoking status: Patient reports the use of cigarette tobacco products, smokes two packs cigarettes per day. ROS: 13:56 Constitutional: Negative for fever, chills, and weight loss, Eyes: Negative for injury, sp3 pain, redness, and discharge, Neck: Negative for injury, pain, and swelling, Cardiovascular: Negative for chest pain, palpitations, and edema, Respiratory: Negative for shortness of breath, cough, wheezing, and pleuritic chest pain, Abdomen/GI: Negative for abdominal pain, nausea, vomiting, diarrhea, and constipation, Back: Negative for injury and pain, MS/Extremity: Negative for injury and deformity, Skin: Negative for injury, rash, and discoloration, Allergy/Immunology: Negative for hives, rash, and allergies, Endocrine: Negative for neck swelling, polydipsia, polyuria, polyphagia, and marked weight changes, Hematologic/Lymphatic: Negative for swollen nodes, abnormal bleeding, and unusual bruising, 13:56 All other systems are negative, Exam: 13:56 Constitutional: This is a well developed, well nourished patient who is awake, alert, sp3 and in no acute distress. Head/Face: Normocephalic, atraumatic. Eyes: Pupils equal round and reactive to light, extra-ocular motions intact. Lids and lashes normal. Conjunctiva and sclera are non-icteric and not injected. Cornea within normal limits. Periorbital areas with no swelling, redness, or edema. Neck: Trachea midline, no thyromegaly or masses palpated, and no cervical lymphadenopathy. Supple, full range of motion without nuchal rigidity, or vertebral point tenderness. No Meningismus. Chest/axilla: Normal chest wall appearance and motion. Nontender with no deformity. No lesions are appreciated. Cardiovascular: Regular rate and rhythm with a normal S1 and S2. No gallops, murmurs, or rubs. Normal PMI, no JVD. No pulse deficits. Respiratory: Lungs have equal breath sounds bilaterally, clear to auscultation and percussion. No rales, rhonchi or wheezes noted. No increased work of breathing, no retractions or nasal flaring. Abdomen/GI: Soft, non-tender, with normal bowel sounds. No distension or tympany. No guarding or rebound. No evidence of tenderness throughout. Back: No spinal tenderness. No costovertebral tenderness. Full range of motion. Skin: Warm, dry with normal turgor. Normal color with no rashes, no lesions, and no evidence of cellulitis. MS/ Extremity: Pulses equal, no cyanosis. Neurovascular intact. Full, normal range of motion. Neuro: Awake and alert, GCS 15, oriented to person, place, time, and situation. Cranial nerves II-XII grossly intact. Motor strength 5/5 in all extremities. Sensory grossly intact. Cerebellar exam normal. Normal gait. 13:56 Psych: Patient actively suicidal with potential psychosis. Vital Signs: 13:45 BP 135 / 79; Pulse 77; Resp 16; Temp 98; Pulse Ox 99% ; Weight 97.52 kg; Height 5 ft. 9 go2 in. ; 13:54 BP 135 / 79; Pulse 77; Resp 16; Temp 98; Pulse Ox 98% ; Weight 97.52 kg; Height 5 ft. 9 go2 in. ; 13:54 Body Mass Index 31.75 (97.52 kg, 175.26 cm) go2 MDM: 13:50 Medical Screening Exam initiated sp3 13:57 Data reviewed: vital signs, nurses notes, lab test result(s), EKG, radiologic studies. sp3 ED course: 54-year-old male with suicidal ideation with plan and possible psychosis. Patient will need psychiatric consultation. Will rule out any medical etiology and once medically clear refer to [facility].. 14:40 ED course: Patient medically clear and we will transfer to psych facility at this time..3 09/26 13:55 Order name: Acetaminophen; Complete Time: 14:40 3 09/26 13:55 Order name: Basic Metabolic Panel; Complete Time: 14:40 09/26 13:55 Order name: CBC with Diff; Complete Time: 14:40 09/26 13:55 Order name: ETOH Level; Complete Time: 14:40 09/26 13:55 Order name: Hepatic Function; Complete Time: 14:40 09/26 13:55 Order name: PT-INR; Complete Time: 14:40 09/26 13:55 Order name: Ptt, Activated; Complete Time: 14:40 09/26 13:55 Order name: Salicylate; Complete Time: 14:40 09/26 13:55 Order name: Urinalysis w/ reflexes; Complete Time: 14:40 3 09/26 13:55 Order name: Urine Drug Screen; Complete Time: 14:40 [facility] 09/26 13:55 Order name: EKG; Complete Time: 13:56 09/26 13:55 Order name: EKG - Nurse/Tech; Complete Time: 14:08 09/26 13:55 Order name: IV Saline Lock; Complete Time: 14:18 [facility] 09/26 13:55 Order name: Labs collected and sent; Complete Time: 14:18 09/26 13:55 Order name: Suicide Precautions; Complete Time: 14:08 09/26 13:55 Order name: Suicide Screening ([place]); Complete Time: 14:18 3 Administered Medications: 14:22 Drug: ALPRAZolam PO Tablet 0.5 mg PO once Route: PO; go2 15:12 Follow up: Response: No adverse reaction; Anxiety decreased ap3 15:09 Drug: Insulin Regular Human Sub-Q 5 units Sub-Q once {Co-Signature: ss (Lisy ap3 Julissa SUMMERS).} Route: Sub-Q; Site: left upper arm; Disposition Summary: 12/10/24 14:41 Transfer Ordered Notes: Transfer Location: Psych Facility sp3 Reason: Higher level of care sp3 Condition: Stable sp3 Problem: an acute exacerbation sp3 Symptoms: have worsened sp3 Accepting Physician: Psych facility(09/26/24 16:29) ap3 Diagnosis - Suicidal ideation, depression sp3 Forms: - Medication Reconciliation Form sp3 - SBAR form sp3 Signatures: Dispatcher [employer] EDLinda Collazo RN RN ap3 Garett Torres MD MD sp3 Minnie Hatch RN RN go2 Julissa Wasserman RN ss Corrections: (The following items were deleted from the chart) 13:53 13:53 PMHx: Hypothyroidism; go2 go2 13:53 13:53 PMHx: COPD; go2 go2 13:53 13:53 PMHx: chronic back pain; go2 go2 13:53 13:53 PMHx: Glaucoma; go2 go2 13:53 13:53 PMHx: Anxiety; go2 go2 13:53 13:53 PMHx: Chronic obstructive lung disease; go2 go2 13:53 13:53 PMHx: Pre-Diabetes; go2 go2 13:53 13:53 PMHx: depressive disorder; go2 go2 13:53 13:53 PMHx: Bipolar disorder; go2 go2 13:53 13:53 PSHx: Cholecystectomy; go2 go2 13:56 13:56 ACETAMINOPHEN+C.LAB.BRZ ordered. EDMS EDMS 13:56 13:56 BASIC METABOLIC PANEL+C.LAB.BRZ ordered. EDMS EDMS 13:56 13:56 CBC+H.LAB.BRZ ordered. EDMS EDMS 13:56 13:56 ETHANOL+C.LAB.BRZ ordered. EDMS EDMS 13:56 13:56 HEPATIC FUNCTION+C.LAB.BRZ ordered. EDMS EDMS 13:56 13:56 PROTIME (+INR)+COAG.LAB.BRZ ordered. EDMS EDMS 13:56 13:56 PTT, ACTIVATED+COAG.LAB.BRZ ordered. EDMS EDMS 13:56 13:56 SALICYLATE+C.LAB.BRZ ordered. EDMS EDMS 13:56 13:56 Urinalysis+U.LAB.BRZ ordered. EDMS EDMS 13:56 13:56 URINE DRUG SCREEN+UC.LAB.BRZ ordered. EDMS EDMS 16:29 14:41 Psych facility sp3 ap3
[2024-09-26] MEDS ORDERED: INSULIN REGULAR (HUMAN) 100 UNIT/ML ONE (15:05)
[2024-09-26 16:34] VITALS: BP 135/79; TEMP 98
[2024-09-26 16:35] VITALS: O2SAT 98
--- NOTE | 2024-09-29 15:56 | EKG ---
Test Date: 2024-09-26 Test Time: 13:59:17 Fast Food Supervisor: TM MEASUREMENT RESULTS: Intervals: Rate: 82 NJ: 178 QRSD: 82 QT: 360 QTc: 420 [place]: P: 40 NJ: 178 QRS: 15 T: 43 INTERPRETIVE STATEMENTS: Normal sinus rhythm Normal ECG Compared to ECG 07/23/2024 19:52:23 No significant changes Electronically Signed On 09-29-24 15:51:29 COREMAKER SUPERVISOR by Noel Azul
== END 2024-09-26 16:29 ==
LOC: ER 13:23
DX: R45.851 Suicidal ideations (principal); F32.A Depression, unspecified; F17.210 Nicotine dependence, cigarettes, uncomplicated
CPT/HCPCS: 36415; 80048; 80076; 80143; 80179; 80307; 81003; 82077; 85025; 85610; 85730; 93005; 96372; 99285

== ENCOUNTER 2024-10-09 21:51 | Observation (INO) | payer OTHER ==
--- NOTE | 2024-10-09 22:25 | RAD REPORT ---
Procedure: Chest Single View HISTORY: Chest pain COMPARISON: June 2024 FINDINGS: The lungs appear clear of acute infiltrate. No significant pleural effusion noted. The heart is normal size. IMPRESSION: No acute abnormality is displayed.
[2024-10-09 22:32] LABS: Absolute Basophils 0.1 K/uL (0-0.5); Absolute Eosinophils 0.2 K/uL (0-0.5); Absolute Lymphocytes (CBC) 2.8 K/uL (0.7-4.9); Absolute Monocytes 0.6 K/uL (0.1-1.3); Absolute Neutrophil 5.1 K/uL (1.8-8.0); Basophils % 0.7 % (0-1.3); Eosinophils % 1.7 % (0-4.4); Hematocrit 39.4 % (39.6-49.0); Hemoglobin 13.4 g/dL (13.6-17.9); MCH 31.9 pg (27.0-35.0); MCHC 33.9 g/dL (32.0-36.0); MCV 93.9 fL (80-100); MPV 9.2 fL (7.6-11.3); Monocytes % 6.7 % (3.3-12.3); Neutrophils % 58.9 % (41.7-73.7); Platelets 174 thou/uL (152-406); Red Cell Distribution Width 13.1 % (12.1-15.2)
[2024-10-09 22:39] LABS: PT Prothrombin Time 12.7 SECONDS (9.4-12.5); Protime INR 1.14
[2024-10-09 22:51] LABS: Anion Gap 8.5 mEq/L (5.0-15.0); Potassium 3.5 mEq/L (3.5-5.1); Troponin High Sensitivity 3.5 pg/mL (<58.9)
[2024-10-10] MEDS ORDERED: MORPHINE 4 MG/ML SYR ONE (01:00)
[2024-10-10] MEDS ORDERED: ONDANSETRON 4 MG/2 ML VIAL ONE (01:00)
--- NOTE | 2024-10-10 01:16 | ER ---
Nurse's Notes [facility] Name: Chi Kelley Age: 54 yrs Sex: Male : 1970 Arrival Date: 10/09/2024 Time: 21:51 Bed 18 Private MD: Diagnosis: Chest pain, unspecified Presentation: 10/09 22:11 Chief complaint: EMS states: Chest pain since yesterday. VS WNL. EKG NSR. NS 500mls to hb 20g RAC. 22:12 Coronavirus screen: At this time, the client does not indicate any symptoms associated hb with coronavirus-19. Ebola Screen: No symptoms or risks identified at this time. Initial Sepsis Screen: Does the patient meet any 2 criteria? No. Patient's initial sepsis screen is negative. Does the patient have a suspected source of infection? No. Patient's initial sepsis screen is negative. Risk Assessment: Do you want to hurt yourself or someone else? Patient reports no desire to harm self or others. Onset of symptoms was October 08, 2024. 22:12 Method Of Arrival: EMS: [facility] 22:12 Acuity: DORIAN 3 hb Triage Assessment: 23:00 General: Appears in no apparent distress. uncomfortable, Behavior is calm, cooperative, vc1 appropriate for age. Pain: Complains of pain in chest Pain does not radiate. Pain Quality of pain is described as sharp. EENT: No deficits noted. No signs and/or symptoms were reported regarding the EENT system. Neuro: Level of Consciousness is awake, alert, obeys commands, Oriented to person, place, time, situation, Appropriate for age. Cardiovascular: Reports chest pain, Capillary refill < 3 seconds Patient's skin is warm and dry. Chest pain is described as mild. Respiratory: Airway is patent Respiratory effort is even, unlabored, Respiratory pattern is regular, symmetrical, Breath sounds are clear bilaterally. GI: Abdomen is round non-distended, Abd is soft and non tender. : No deficits noted. No signs and/or symptoms were reported regarding the genitourinary system. Derm: Skin is intact, is healthy with good turgor, Skin is dry, Skin is normal, Skin temperature is warm. Musculoskeletal: Circulation, motion, and sensation intact. Range of motion: intact in all extremities. Historical: - Allergies: 22:12 No Known Allergies; hb - Immunization history:: Adult Immunizations unknown. - Infectious Disease History:: Denies. - Family history:: not pertinent. - Hospitalizations: : No recent hospitalization is reported. - Social history:: Smoking status: unknown. Screenin:11 [facility] ED Fall Risk Assessment (Adult) History of falling in the last 3 months, vc1 including since admission No falls in past 3 months (0 pts) Confusion or Disorientation No (0 pts) Intoxicated or Sedated No (0 pts) Impaired Gait No (0 pts) Mobility Assist Device Used No (0 pt) Altered Elimination No (0 pt) Score/Fall Risk Level 0 - 2 = Low Risk Oriented to surroundings, Maintained a safe environment, Educated pt \T\ family on fall prevention, incl call for assistance when getting out of bed. Abuse screen: Denies threats or abuse. Nutritional screening: No deficits noted. Tuberculosis screening: No symptoms or risk factors identified. 10/10 01:28 Exposure risk/Travel Screening: None identified. mt4 Assessment: 10/09 23:00 Pain: Pain began 2-3 days ago. vc1 10/10 01:28 General: Appears in no apparent distress. comfortable, unkempt, Behavior is calm, mt4 cooperative, appropriate for age. Pain: Complains of pain in chest Pain does not radiate. Pain currently is 10 out of 10 on a pain scale. Quality of pain is described as sharp, Pain began 2-3 days ago. Neuro: Level of Consciousness is awake, alert, obeys commands, Oriented to Partner are equal bilaterally Moves all extremities. Gait is steady, Speech is normal, Facial symmetry appears normal. Cardiovascular: Reports chest pain, Capillary refill < 3 seconds. Respiratory: Airway is patent Respiratory effort is even, unlabored, Respiratory pattern is regular, symmetrical. GI: Abdomen is non-distended. : Denies burning with urination. Vital Signs: 10/09 22:12 BP 127 / 78; Pulse 86; Resp 16; Temp 97.8; Pulse Ox 100% on R/A; Pain 8/10; hb 10/10 01:28 BP 117 / 84; Pulse 58; Resp 19; Temp 97.9(O); Pulse Ox 97% on R/A; Pain 10/10; mt4 10/09 22:12 Pain Scale: Adult hb 10/10 01:28 Pain Scale: Adult mt4 William Coma Score: 01:28 Eye Response: spontaneous(4). Motor Response: obeys commands(6). Verbal Response: mt4 oriented(5). Total: 15. ED Course: 10/09 21:52 Patient arrived in ED. jj6 21:58 Yassine Jauregui MD is Attending Physician. rn 22:11 Arm band placed on right wrist. vc1 22:11 No provider procedures requiring assistance completed. Maintain EMS IV. Dressing vc1 intact. Good blood return noted. Site clean \T\ dry. Gauge \T\ site: 20 RAC. Flushed with 10 mL NS. 22:11 Patient maintains SpO2 saturation greater than 95% on room air. vc1 22:12 Triage completed. hb 22:16 XRAY Chest (1 view) In Process Unspecified. EDMS 23:00 Patient has correct armband on for positive identification. In diagnostic chair. Pulse vc1 ox on. NIBP on. 23:08 CT Chest For PE Angio In Process Unspecified. EDMS 10/10 01:16 Magen Jauregui MD is Hospitalizing Provider. rn 01:24 Patient admitted, IV remains in place. vc1 01:25 Jaime Zamora RN is Primary Nurse. mt4 01:27 Provided Education on: fall safety. vc1 01:28 Client placed on continuous cardiac and pulse oximetry monitoring. NIBP monitoring mt4 applied. alarm security or surveillance monitor on. Pulse ox on. Door closed. Lights dimmed. Warm blanket given. Pillow given. Verbal reassurance given. Patient is placed in psych hold. Patient is placed in psych hold. Assisted to bathroom. 01:28 Patient maintains SpO2 saturation greater than 95% on room air. mt4 Administered Medications: 01:05 Drug: morphine IVP or IV 4 mg IVP once over 4 mins Route: IVP; Infused Over: 4 mins; vc1 Site: right antecubital; 01:06 Drug: Ondansetron IVP 4 mg IVP once; over 2 minutes Route: IVP; Site: right antecubital;vc1 01:22 Drug: Aspirin PO 325 mg PO once Route: PO; vc1 Medication: 01:23 VIS not applicable for this client. vc1 Outcome: 01:16 Decision to Hospitalize by Provider. rn 01:24 Admitted to ER Hold. Please see [employer] for further documentation. vc1 01:24 Condition: stable 01:24 Instructed on the need for admit, 14:02 Patient left the ED. tm6 Signatures: Dispatcher [employer] EDYassine Darden MD MD rn Baxter, Heather RN RN Renita Craig jj6 Danae Bloom RN RN vc1 Johanne Rawls RN RN tm6 Jaime Zamora RN RN mt4
--- NOTE | 2024-10-10 01:16 | EDPHYS ---
Physician Documentation [facility] Name: Chi Kelley Age: 54 yrs Sex: Male : 1970 Arrival Date: 10/09/2024 Time: 21:51 Bed 18 Private MD: ED Physician Yassine Jauregui HPI: 10/09 23:01 This 54 yrs old Male presents to ER via EMS with complaints of Chest Pain. rn 23:01 The patient or guardian reports chest pain that is located primarily in the anterior rn chest wall, left. Onset: 3 day(s) ago. The pain does not radiate. Associated signs and symptoms: Pertinent positives: nausea, shortness of breath, Diarrhea. The chest pain is described as aching. Duration: The patient or guardian reports multiple episodes, that are intermittent. Modifying factors: The symptoms are alleviated by nothing. the symptoms are aggravated by cough, deep breath. Severity of pain: At its worst the pain was mild in the emergency department the pain is unchanged. The patient has not experienced similar symptoms in the past. Patient reports 3 days of intermittent left-sided chest pain, nonradiating, associated with shortness of breath, cough, nausea and diarrhea. No sick contacts. No trauma. No history of ME in the past but states "cardiac problems ". Denies hemoptysis. No history of DVT or PE. Reports myalgias.. Historical: - Allergies: 22:12 No Known Allergies; hb - Immunization history:: Adult Immunizations unknown. - Infectious Disease History:: Denies. - Family history:: not pertinent. - Hospitalizations: : No recent hospitalization is reported. - Social history:: Smoking status: unknown. ROS: 23:01 Constitutional: Negative for fever, chills, and weight loss, Cardiovascular: Positive rn for chest pain Respiratory: Positive for cough and shortness of breath Abdomen/GI: Positive for nausea and diarrhea MS/Extremity: Negative for injury and deformity, Skin: Negative for injury, rash, and discoloration, Neuro: Negative for headache, weakness, numbness, tingling, and seizure, Exam: 23:01 Constitutional: This is a well developed, well nourished patient who is awake, alert, rn and in no acute distress. Sitting in wheelchair with legs crossed Head/Face: Normocephalic, atraumatic. Cardiovascular: Regular rate and rhythm. No pulse deficits. Respiratory: No increased work of breathing, no retractions or nasal flaring. Abdomen/GI: Soft, non-tender MS/ Extremity: Pulses equal, no cyanosis. Neurovascular intact. Full, normal range of motion. Equal circumference. Neuro: Awake and alert, GCS 15 Vital Signs: 22:12 BP 127 / 78; Pulse 86; Resp 16; Temp 97.8; Pulse Ox 100% on R/A; Pain 8/10; hb 10/10 01:28 BP 117 / 84; Pulse 58; Resp 19; Temp 97.9(O); Pulse Ox 97% on R/A; Pain 10/10; mt4 10/09 22:12 Pain Scale: Adult hb 10/10 01:28 Pain Scale: Adult mt4 William Coma Score: 01:28 Eye Response: spontaneous(4). Motor Response: obeys commands(6). Verbal Response: mt4 oriented(5). Total: 15. MDM: 10/09 21:58 Medical Screening Exam initiated rn 10/10 01:13 Differential diagnosis: acute myocardial infarction, acute pericarditis, anxiety, rn coronary artery disease costochondritis, esophagitis, gastritis, gastroesophageal reflux disease (GERD), pleurisy, pneumonia, pneumothorax, pulmonary embolus, stable angina. Data reviewed: vital signs, nurses notes, lab test result(s), EKG, radiologic studies, CT scan, plain films, and as a result, I will admit patient. Consideration of Admission/Observation Patient was admitted/placed on observation. Escalation of care including admission/observation considered. Counseling: I had a detailed discussion with the patient and/or guardian regarding the historical points, exam findings, and any diagnostic results supporting the discharge/admit diagnosis, lab results, radiology results, the need for further work-up and treatment in the hospital. Response to treatment: the patient's symptoms have markedly improved after treatment, and as a result, I will admit patient. ED course: Patient improved after morphine. Troponin negative. CT PE protocol negative. Intermittent chest pain without clear etiology over the last 3 days, will admit to hospitalist service for cardiac workup.. 10/09 21:59 Order name: Basic Metabolic Panel; Complete Time: 23:00 rn 10/09 21:59 Order name: CBC with Diff; Complete Time: 22:42 rn 10/09 21:59 Order name: NT PRO-BNP; Complete Time: 23:00 rn 10/09 21:59 Order name: PT-INR; Complete Time: 22:42 rn 10/09 21:59 Order name: Troponin HS; Complete Time: 23:00 rn 10/10 01:16 Order name: Glucose, Ancillary Testing; Complete Time: 01:17 EDWV 10/10 03:03 Order name: Urinalysis w/ reflexes EDMS 10/10 03:03 Order name: Troponin High Sensitivity EDWV 10/10 03:03 Order name: Troponin High Sensitivity EDMS 10/10 03:03 Order name: Troponin High Sensitivity EDMS 10/10 03:03 Order name: Troponin High Sensitivity EDWV 10/10 03:03 Order name: CBC with Automated Diff EDWV 10/10 03:03 Order name: Comprehensive Metabolic Panel EDWV 10/10 03:03 Order name: Magnesium EDWV 10/10 03:03 Order name: Phosphorus EDWV 10/10 03:03 Order name: Thyroid Stimulating Hormone EDWV 10/10 05:40 Order name: T4 Free EDWV 10/10 08:36 Order name: Glucose, Ancillary Testing EDWV 10/10 12:27 Order name: Glucose, Ancillary Testing EDWV 10/10 12:37 Order name: Troponin High Sensitivity EDWV 10/09 21:59 Order name: XRAY Chest (1 view); Complete Time: 22:29 rn 10/09 22:14 Order name: CT Chest For PE Angio rn 10/10 02:59 Order name: Echo with Doppler EDWV 10/10 03:03 Order name: CONS Physician Consult EDWV 10/09 21:59 Order name: Cardiac monitoring; Complete Time: 00:34 rn 10/09 21:59 Order name: EKG - Nurse/Tech; Complete Time: 00:34 rn 10/09 21:59 Order name: IV Saline Lock; Complete Time: 00:34 rn 10/09 21:59 Order name: Labs collected and sent; Complete Time: 00:34 rn 10/09 21:59 Order name: O2 Per Protocol; Complete Time: 00:34 rn 10/09 21:59 Order name: O2 Sat Monitoring; Complete Time: 00:34 rn 10/09 21:59 Order name: Glucose Level; Complete Time: 00:36 rn Administered Medications: 01:05 Drug: morphine IVP or IV 4 mg IVP once over 4 mins Route: IVP; Infused Over: 4 mins; vc1 Site: right antecubital; 01:06 Drug: Ondansetron IVP 4 mg IVP once; over 2 minutes Route: IVP; Site: right antecubital;vc1 01:22 Drug: Aspirin PO 325 mg PO once Route: PO; vc1 Disposition Summary: 10/10/24 01:16 Hospitalization Ordered Notes: Hospitalization Status: Observation rn Provider: Magen Jauregui rn Condition: Stable rn Problem: new rn Symptoms: have improved rn Bed/Room Type: Standard rn Location: Telemetry/MedSurg (observation)(10/10/24 12:28) ja1 Room Assignment: 412(10/10/24 12:28) tj Diagnosis - Chest pain, unspecified rn Forms: - Medication Reconciliation Form rn - SBAR form rn - Leadership Thank You Letter rn Signatures: Dispatcher [employer] EDMS Yassine Jauregui MD MD rn Baxter, Heather RN MELINA Nikhil Adams RN RN [facility] Danae Bloom RN RN vc1 Corrections: (The following items were deleted from the chart) 10/09 22:15 22:15 Chest For PE Angio+CT.RAD.BRZ ordered. [facility] 10/10 02:19 01:16 Telemetry/MedSurg (observation) rn vc1 02:19 01:16 rn vc1 02:19 02:19 vc1 vc1 12: 02:19 [facility] ER HOLD vc1 ja1 12: 02:19 ERHOLD- vc1 ja1
[2024-10-10] MEDS ORDERED: ASPIRIN 325 MG TAB ONE (01:20)
--- NOTE | 2024-10-10 01:34 | RAD REPORT ---
CTA THORAX - PULMONARY ARTERIES HISTORY: Suspected pulmonary embolus. COMPARISON: None. TECHNIQUE: Intravenous low osmolar contrast. Coronal and sagittal reformations including 3D maxim um intensity projections. This exam was performed according to our departmental dose-optimization program, which includes autom ated exposure control, adjustment of the mA and/or kV according to patient size and/or use of iterative reconstruction technique. FINDINGS: PULMONARY ARTERIAL SYSTEM: Contrast bolus is adequate. No CT evidence for pulmonary embolism. CARDIAC: Normal. AORTA/VASCULAR: No aneurysm. LYMPH NODES/MEDIASTINUM: No thoracic adenopathy. CENTRAL AIRWAYS: Central airways are patent. LUNGS: No pulmonary infiltrates or masses. PLEURA: Normal. ESOPHAGUS: Collapsed and not well assessed by CT, without obvious abnormality. THYROID: Negative, where seen. CHEST WALL: Normal. UPPER ABDOMEN: Hepatic steatosis. Cholecystectomy. THORACIC SKELETAL: No acute finding. ADDITIONAL CHEST FINDINGS: None. IMPRESSION: 1. No evidence of acute pulmonary embolus. 2. No acute thoracic findings. 3. Hepatic steatosis. Electronically signed by: Ben Hylton MD 10/10/2024 01:03 AM [facility] Z9 Due to temporary technical issues with the PACS/Makstr reporting system, reports are being juliette d by the in-house radiologist without review as a courtesy to ensure prompt reporting the interpreting radiologist is fully responsible for the content of the report. Transcribed Date/Time: 10/10/2024 1:33 AM
[2024-10-10] MEDS: NA CHLORIDE 0.9% 1,000 ML IV SCH (03:00)
[2024-10-10] MEDS ORDERED: D10W 125 ML IV PRN (03:01)
[2024-10-10] MEDS ORDERED: GLUCAGON 1 MG/VIAL IM PRN (03:01)
[2024-10-10] MEDS ORDERED: MELATONIN 5 MG TABLET PO PRN (03:02)
--- NOTE | 2024-10-10 03:09 | P.HP ---
Certification for Inpatient Patient admitted to: Observation With expected LOS: <2 Midnights <Keisha Villa - Last Filed: 10/10/24 03:03> Patient History Date of Service: 10/10/24 Reason for admission: chest pain History of Present Illness: 54-year-old man with a past medical history significant for HDL, GERD, hypothyroidism, insomnia, and DM type II [id number] presented to the emergency department tonight complaining of chest pain x 3 days. The patient describes his chest pain as substernal, radiating to the left shoulder, and of an aching quality. He states his chest hurts even at rest. The patient is an everyday smoker, and reports smoking half a pack daily. He denies fever, cough, dyspnea, and urinary symptoms. Home medications list reviewed: Yes - Past Medical/Surgical History Diabetic: Yes -: Hypothyroidism -: GERD -: DMT2 -: Insomnia -: HDL -: Left inguinal hernia repair -: Ankle surgery Psychosocial/ Personal History: He is , has 1 child, he does not work. He is currently disabled. - Family History Mother -: Cancer Notes: brain and lung Father -: Heart disease, Lung disease, Diabetes, Cancer Notes: lung cancer - Social History Smoking Status: Current every day smoker (Half a pack daily) Counseled patient to stop smoking for: less than 10 minutes Smoking therapy provided: No Alcohol use: No CD- Drugs: No Caffeine use: Yes <Keisha Villa - Last Filed: 10/10/24 03:03> Date of Service: 10/10/24 <Magen Jauregui - Last Filed: 10/10/24 11:05> Allergies No Known Allergies Allergy (Verified 07/27/20 20:48) Home Medications: Albuterol Neb [Proventil 0.083% Neb Soln] 2.5 mg NEB PRN PRN 08/18/18 Trazodone [Desyrel*] 50 mg PO BEDTIME 08/18/18 Cyclobenzaprine HCl [Flexeril] 1 tab PO BEDTIME 07/27/20 Levothyroxine [Synthroid*] 1 tab PO DAILY 07/27/20 Pantoprazole [Protonix Tab*] 1 tab PO DAILY 07/27/20 Albuterol Neb [Proventil 0.083% Neb Soln] 2.5 mg NEB Q6HP PRN amp 07/28/20 Aspirin [Aspirin EC 81 MG] 81 mg PO DAILY #30 tablet. 07/28/20 Atorvastatin Calcium 40 mg PO DAILY #30 tablet 07/28/20 Meclizine HCl [Antivert*] 25 mg PO BID tab 07/28/20 Melatonin 10 mg PO BEDTIME PRN PRN tablet 07/28/20 Review of Systems Cardiovascular: Chest Pain Gastrointestinal: Abdominal Pain (Generalized) <Keisha Villa Q - Last Filed: 10/10/24 03:03> Physical Examination - Vital Signs Temperature: 97.8 F Blood Pressure: 120/79 Pulse: 54 Respirations: 18 Pulse Ox (%): 100 (On room air) - Physical Exam General: Alert, Oriented x3 HEENT: Atraumatic, Normocephalic Neck: JVD not distended Respiratory: Clear to auscultation bilaterally Cardiovascular: No edema, Regular rate/rhythm, No gallops, No rubs, No murmurs Gastrointestinal: Normal bowel sounds, Non-distended, No tenderness Musculoskeletal: No swelling, No erythema, No tenderness, No warmth Neurological: Normal speech, Normal strength at 5/5 x4 extr, Sensation intact - Studies Laboratory Data (last 24 hrs) 10/09/24 10/09/24 10/09/24 22:24 22:24 22:24 WBC 8.70 Hgb 13.4 L Hct 39.4 L Plt Count 174 PT 12.7 H INR 1.14 Sodium 139 Potassium 3.5 BUN 9 Creatinine 1.07 Glucose 252 H <Keisha Villa Q - Last Filed: 10/10/24 03:03> - Studies Laboratory Data (last 24 hrs) 10/09/24 10/09/24 10/09/24 22:24 22:24 22:24 WBC 8.70 Hgb 13.4 L Hct 39.4 L Plt Count 174 PT 12.7 H INR 1.14 Sodium 139 Potassium 3.5 BUN 9 Creatinine 1.07 Glucose 252 H <Magen Jauregui - Last Filed: 10/10/24 11:05> Assessment and Plan - Problems (Diagnosis) (1) Chest pain Current Visit: No Status: Active (2) Diabetes Current Visit: Yes Status: Acute (3) Insomnia Current Visit: Yes Status: Acute (4) GERD (gastroesophageal reflux disease) Onset Date: 10/05/16 Current Visit: No Status: Chronic (5) Hypothyroidism Onset Date: 10/05/16 Current Visit: No Status: Chronic - Plan Chest pain: Admit to observation Telemetry ordered Cardiology consulted Troponin ordered to trend Echocardiogram ordered Negative troponin Negative BNP CXR revealed no abnormality CTA revealed no pulmonary embolism Continue with aspirin, and statin home dose Diabetes: On insulin sliding scale HDL: Resume home medication Insomnia: Resume home medication Hypothyroidism: Resume home medication GERD: Resume home medication - Advance Directives Does patient have a Living Will: No Does patient have a Durable POA for Healthcare: No <Keisha Villa - Last Filed: 10/10/24 03:03> - Plan DOS (10/10/24) Discussed case with DAVIS Villa. Remote EMR access unavailable at the time for indepenent review. agree with plan of care as noted above. obs for ACS rule out 3 days chest pain. trop negative in ED, continue to trend CTA negative for PE in ED, CXR clear, EKG reportedly without ischemic changes <Magen Jauregui - Last Filed: 10/10/24 11:05>
[2024-10-10] MEDS ORDERED: NA CHLORIDE 0.9% 1,000 ML ONE (03:19)
[2024-10-10 03:53] VITALS: BMI 31.7
[2024-10-10] MEDS ORDERED: ACETAMINOPHEN 325 MG TABLET ONE (04:23)
[2024-10-10] MEDS ORDERED: MORPHINE 4 MG/ML SYR IV PRN (04:26)
[2024-10-10] MEDS: ACETAMINOPHEN 325 MG TABLET PO PRN (04:26)
[2024-10-10 05:07] LABS: Absolute Basophils 0.1 K/uL (0-0.5); Absolute Eosinophils 0.3 K/uL (0-0.5); Absolute Lymphocytes (CBC) 4.4 K/uL (0.7-4.9); Absolute Monocytes 0.7 K/uL (0.1-1.3); Absolute Neutrophil 4.2 K/uL (1.8-8.0); Basophils % 0.6 % (0-1.3); Eosinophils % 2.9 % (0-4.4); Hematocrit 40.4 % (39.6-49.0); Hemoglobin 13.6 g/dL (13.6-17.9); Lymphocytes % 46.1 % (15.3-44.8); MCH 31.6 pg (27.0-35.0); MCHC 33.7 g/dL (32.0-36.0); MCV 93.8 fL (80-100); MPV 9.4 fL (7.6-11.3); Monocytes % 6.9 % (3.3-12.3); Neutrophils % 43.5 % (41.7-73.7); Nucleated Red Blood Cells % 0.1 % (0-0); Platelets 190 thou/uL (152-406); Red Cell Distribution Width 12.9 % (12.1-15.2)
[2024-10-10 05:26] LABS: Albumin 3.2 g/dL (3.4-5.0); Albumin/Globulin Ratio 0.9 (1.1-1.8); Anion Gap 5.6 mEq/L (5.0-15.0); Bilirubin Total 0.5 mg/dL (0.2-1.0); Globulin 3.4 g/dL (2.3-3.5); Magnesium 1.8 mg/dL (1.6-2.4); Phosphorus 3.2 mg/dL (2.5-4.9); Potassium 3.6 mEq/L (3.5-5.1); Protein, Total 6.6 g/dL (6.4-8.2); Thyroid Stimulating Hormone 5.16 uIU/mL (0.358-3.740)
[2024-10-10] MEDS: LEVOTHYROXINE SOD 0.088 MG TAB PO SCH (06:00)
[2024-10-10] MEDS: INSULIN REGULAR (HUMAN) 100 UNIT/ML SQ SCH (07:30)
[2024-10-10] MEDS: ENOXAPARIN 40 MG/0.4 ML SQ SCH (09:00)
[2024-10-10] MEDS: ATORVASTATIN 40 MG TAB PO SCH (09:00)
[2024-10-10] MEDS: ASPIRIN EC 81 MG TAB PO SCH (09:00)
[2024-10-10] MEDS: PANTOPRAZOLE 40MG TABLET PO SCH (09:00)
[2024-10-10] MEDS: MECLIZINE HCL 12.5 MG TAB PO SCH (09:00)
[2024-10-10] MEDS: FLU (Fluarix Triv) TS24-25(6MOS UP)/PF 45 MCG/0.5 ML Syringe IM ONE (09:00)
[2024-10-10] MEDS ORDERED: PANTOPRAZOLE 40MG TABLET PO ONE (09:51)
[2024-10-10] MEDS ORDERED: ATORVASTATIN 20 MG TAB ONE (09:51)
[2024-10-10] MEDS ORDERED: FLU (Fluarix Triv) TS24-25(6MOS UP)/PF 45 MCG/0.5 ML Syringe IM ONE (09:52)
[2024-10-10] MEDS ORDERED: ASPIRIN EC 81 MG TAB PO ONE (09:52)
[2024-10-10] MEDS ORDERED: MECLIZINE HCL 12.5 MG TAB ONE (09:52)
[2024-10-10] MEDS ORDERED: ENOXAPARIN 40 MG/0.4 ML SQ ONE (09:53)
[2024-10-10] MEDS ORDERED: INSULIN REGULAR (HUMAN) 100 UNIT/ML ONE (13:00)
[2024-10-10 14:09] VITALS: O2SAT 97
[2024-10-10 17:03] VITALS: BP 114/72; TEMP 97.5
--- NOTE | 2024-10-10 18:26 | P.DS ---
Admission Date: 10/10/24 Discharge Date: 10/10/24 Disposition: ROUTINE DISCHARGE Discharge Condition: FAIR Reason for Admission: chest pain - Problems (1) Chest pain Current Visit: No Status: Active (2) GERD (gastroesophageal reflux disease) Onset Date: 10/05/16 Current Visit: No Status: Chronic Qualifiers: (3) Type 2 diabetes mellitus Current Visit: Yes Status: Acute (4) Hypothyroidism Onset Date: 10/05/16 Current Visit: No Status: Chronic Qualifiers: (5) Tobacco abuse Onset Date: 10/05/16 Current Visit: No Status: Chronic Brief History of Present Illness: 54-year-old man with a past medical history significant for HDL, GERD, hypothyroidism, insomnia, and DM type II [id number] presented to the emergency department tonight complaining of chest pain x 3 days. The patient reported he is an everyday smoker, and reports smoking half a pack daily. He denied any shortness of breath. Initial troponin negative. CTA thorax showed no pulm embolism and no acute lung disease. Patient was hospitalized for ACS rule out. Hospital Course: Patient placed under observation of medical floor, troponin trended negative. Patient was chest pain-free during the hospital stay. Echocardiogram was done and result is pending. Patient evaluated by cardiology Dr. An who recommended further outpatient cardiac workup after his troponin trended negative. Patient given refills for aspirin, Lipitor and prescribed metformin for diabetes. Blood pressure is within normal range and patient has been intermittently bradycardic. Vital Signs/Physical Exam: Temp Pulse Resp BP Pulse Ox 97.5 F 65 16 114/72 96 10/10/24 16:00 10/10/24 16:00 10/10/24 16:00 10/10/24 16:00 10/10/24 16:00 General: Alert, In no apparent distress, Oriented x3 HEENT: Normocephalic Neck: Supple, JVD not distended Respiratory: Clear to auscultation bilaterally, Normal air movement Cardiovascular: No edema, Regular rate/rhythm, Normal S1 S2 Capillary refill: <2 Seconds Gastrointestinal: Normal bowel sounds, Soft and benign, Non-distended, No tenderness Musculoskeletal: No swelling, No tenderness Integumentary: No rashes, No cyanosis Neurological: Normal speech, Normal strength at 5/5 x4 extr, Cranial nerves 3-12 intact Lymphatics: No axilla or inguinal lymphadenopathy Laboratory Data at Discharge: WBC 9.50 thou/uL (4.3-10.9) 10/10/24 04:31 Hgb 13.6 g/dL (13.6-17.9) 10/10/24 04:31 Hct 40.4 % (39.6-49.0) 10/10/24 04:31 Plt Count 190 thou/uL (152-406) 10/10/24 04:31 PT 12.7 SECONDS (9.4-12.5) H 10/09/24 22:24 INR 1.14 10/09/24 22:24 Sodium 139 mEq/L (136-145) 10/10/24 04:31 Potassium 3.6 mEq/L (3.5-5.1) 10/10/24 04:31 BUN 8 mg/dL (7-18) 10/10/24 04:31 Creatinine 0.93 mg/dL (0.70-1.30) 10/10/24 04:31 Glucose 116 mg/dL (74-106) H 10/10/24 04:31 Phosphorus 3.2 mg/dL (2.5-4.9) 10/10/24 04:31 Magnesium 1.8 mg/dL (1.6-2.4) 10/10/24 04:31 Total Bilirubin 0.5 mg/dL (0.2-1.0) 10/10/24 04:31 AST 46 U/L (15-37) H 10/10/24 04:31 ALT 74 U/L (16-61) H 10/10/24 04:31 Alkaline Phosphatase 63 U/L (45-117) 10/10/24 04:31 Home Medications: Albuterol Neb [Proventil 0.083% Neb Soln] 2.5 mg NEB PRN PRN 08/18/18 Trazodone [Desyrel*] 50 mg PO BEDTIME 08/18/18 Cyclobenzaprine HCl [Flexeril] 1 tab PO BEDTIME 07/27/20 Levothyroxine [Synthroid*] 1 tab PO DAILY 07/27/20 Pantoprazole [Protonix Tab*] 1 tab PO DAILY 07/27/20 Albuterol Neb [Proventil 0.083% Neb Soln] 2.5 mg NEB Q6HP PRN amp 07/28/20 Meclizine HCl [Antivert*] 25 mg PO BID tab 07/28/20 Melatonin 10 mg PO BEDTIME PRN PRN tablet 07/28/20 Aspirin [Aspirin EC 81 MG] 81 mg PO DAILY #30 tablet. 10/10/24 Atorvastatin Calcium 40 mg PO DAILY #30 tablet 10/10/24 Metformin HCl 500 mg PO BID #60 tab 10/10/24 New Medications: Aspirin [Aspirin EC 81 MG] 81 mg PO DAILY #30 tablet. Atorvastatin Calcium 40 mg PO DAILY #30 tablet Metformin HCl 500 mg PO BID #60 tab Diet: ADA Activity: Ad denise Followup: NONE,NONE [Primary Care Provider] - 1-2 Weeks Tremayne An MD [ACTIVE - CAN ADMIT] - 1 Week (Please call for arrangement for stress test within 1 week.) Time spent managing pt's care (in minutes): 27
[2024-10-10] MEDS ORDERED: TRAZODONE 50 MG TABLET PO SCH (21:00)
--- NOTE | 2024-10-16 10:24 | ECHO ---
HEIGHT: 5 ft 9 in WEIGHT: 215 lb 0 oz DATE OF STUDY: 10/10/[address]: Keisha Villa PA-C 2-DIMENSIONAL: YES M.MODE: YES DOPPLER: YES COLOR FLOW: YES TDS: YES PORTABLE: YES DEFINITY: NO BUBBLE STUDY: NO DIAGNOSIS: CHEST PAIN CARDIAC HISTORY: CATHERIZATION: NO SURGERY: NO PROSTHETIC VALVE: NO PACEMAKER: NO MEASUREMENTS (cm) DIASTOLIC (NORMALS) SYSTOLIC (NORMALS) IVSd 1.1 (0.6-1.2) LA Diam 2.9 (1.9-4.0) LVEF 55-60% LVIDd 4.5 (3.5-5.7) LVIDs 3.2 (2.0-3.5) %FS 30% LVPWd 1.1 (0.6-1.2) Ao Diam 2.9 (2.0-3.7) 2 DIMENSIONAL ASSESSMENT: RIGHT ATRIUM: NORMAL LEFT ATRIUM: NORMAL RIGHT VENTRICLE: NORMAL LEFT VENTRICLE: LEFT VENTRICULAR HYPERTROPHY TRICUSPID VALVE: TRACE TRICUSPID REGURGITATION MITRAL VALVE: TRACE MITRAL REGURGITATION PULMONIC VALVE: NORMAL AORTIC VALVE: NORMAL PERICARDIAL EFFUSION: NONE AORTIC ROOT: NORMAL LEFT VENTRICULAR WALL MOTION: NORMAL. DOPPLER/COLOR FLOW: SEE BELOW. COMMENTS: 1. NORMAL LEFT VENTRICULAR LEFT VENTRICULAR EJECTION FRACTION 55-60% WITH NORMAL WALL MOTION. 2. NORMAL DIASTOLIC FUNCTION. 3. MILD TRICUSPID AND MITRAL REGURGITATION WITH NORMAL RIGHT VENTRICULAR SYSTOLIC PRESSURE. 4. MILD CONCENTRIC LEFT VENTRICULAR HYPERTROPHY. TECHNOLOGIST: TUNDE HORN
--- NOTE | 2024-10-16 11:24 | EKG ---
Test Date: 2024-10-10 Test Time: 08:03:38 Credit Verifier: HB MEASUREMENT RESULTS: Intervals: Rate: 57 NV: 204 QRSD: 86 QT: 424 QTc: 412 Tiline: P: 69 NV: 204 QRS: 45 T: 33 INTERPRETIVE STATEMENTS: Sinus bradycardia Otherwise normal ECG Compared to ECG 09/26/2024 13:59:17 Sinus rhythm no longer present Electronically Signed On 10-16-24 11:18:14 SYSTEM PROGRAMMER by Noel Azul
== END 2024-10-10 20:00 | disposition home or self-care (01) ==
LOC: ER 21:51 → ERHOLD 10-10 02:57 → INTOOBSV 10-10 02:57 → 4TH 10-10 13:32
PROVIDERS: ADMIT Internal Medicine; ATTEND Internal Medicine
DX: R07.9 Chest pain, unspecified (principal); E78.5 Hyperlipidemia, unspecified; K21.9 Gastro-esophageal reflux disease without esophagitis; E03.9 Hypothyroidism, unspecified; G47.00 Insomnia, unspecified; E11.9 Type 2 diabetes mellitus without complications; F17.210 Nicotine dependence, cigarettes, uncomplicated
CPT/HCPCS: 93306; 85025 ×2; 80048; 36415; 83735; 84100; 85610; 82947 ×4; 84443; 84484 ×3; 84439; 80053; 83880; 71275; 71045; 96375; 96374; 99285; Q9967; J8597; J1650; J2405; J7030 ×2; G0378 ×3; 93005

== ENCOUNTER 2024-10-26 22:17 | Inpatient (IN) | payer OTHER ==
[2024-10-26] MEDS ORDERED: ACTIVATED CHARCOAL 50 GM/240 ML ONE (22:43)
[2024-10-26] MEDS ORDERED: ONDANSETRON 4 MG/2 ML VIAL ONE (22:54)
[2024-10-26] MEDS ORDERED: NA CHLORIDE 0.9% 3,000 ML ONE (22:54)
[2024-10-26] MEDS ORDERED: CALCIUM GLUCONATE 1 GM IVPB 2 GM/100 ML BAG IV ONE (22:55)
[2024-10-26 23:10] LABS: Absolute Eosinophils 0.2 K/uL (0-0.5); Absolute Lymphocytes (CBC) 3.1 K/uL (0.7-4.9); Absolute Monocytes 0.7 K/uL (0.1-1.3); Absolute Neutrophil 6.8 K/uL (1.8-8.0); Basophils % 0.4 % (0-1.3); Hematocrit 41.2 % (39.6-49.0); Lymphocytes % 28.6 % (15.3-44.8); MCH 31.6 pg (27.0-35.0); MCHC 34.1 g/dL (32.0-36.0); MCV 92.9 fL (80-100); MPV 9.3 fL (7.6-11.3); Monocytes % 6.2 % (3.3-12.3); Neutrophils % 62.8 % (41.7-73.7); Nucleated Red Blood Cells % 0.1 % (0-0); Platelets 190 thou/uL (152-406); RBC Red Blood Cell Count 4.43 M/uL (4.33-5.43); Red Cell Distribution Width 12.9 % (12.1-15.2)
[2024-10-26 23:15] LABS: PT Prothrombin Time 11.8 SECONDS (9.4-12.5); PTT, Activated Partial Thromb 31.3 SECONDS (24.3-36.9); Protime INR 1.06
[2024-10-26 23:37] LABS: Sqamous Epithelial None Seen /HPF (None Seen); Urine Bacteria None Seen /HPF (<20); Urine Bilirubin NEGATIVE (Negative); Urine Blood Negative (Negative); Urine Clarity Clear (Clear); Urine Color Light-Yellow (Yellow); Urine Culture Reflex Order NOT NEEDED; Urine Glucose NEGATIVE (Negative); Urine Ketones NEGATIVE (Negative); Urine Microscopic Reflex YN ORDER UMIC; Urine Mucus Slight /HPF (None Seen); Urine Nitrite NEGATIVE (Negative); Urine Protein NEGATIVE (Negative); Urine RBC <5 /HPF (None Seen); Urine Urobilinogen Normal (Normal); Urine WBC <5 /HPF (<5); Urine pH 6.5 (5.0-7.0)
[2024-10-26 23:50] LABS: ALT/SGPT 72 U/L (16-61); AST/SGOT 34 U/L (15-37); Albumin 3.4 g/dL (3.4-5.0); Alkaline Phosphatase 76 U/L (45-117); Anion Gap 10.4 mEq/L (5.0-15.0); BUN Blood Urea Nitrogen 10 mg/dL (7-18); Bicarbonate 23 mEq/L (21-32); Bilirubin Total 0.3 mg/dL (0.2-1.0); Globulin 3.4 g/dL (2.3-3.5); Glomerular Filtration Rate 91 ml/min (=/>90); Glucose Level 134 mg/dL (74-106); Potassium 3.4 mEq/L (3.5-5.1); Protein, Total 6.8 g/dL (6.4-8.2); Sodium Level 138 mEq/L (136-145)
[2024-10-26 23:55] LABS: Bilirubin Direct < 0.2 mg/dL (0-0.2); Bilirubin Indirect, Calculated 0.1 mg/dL (0.2-0.8)
[2024-10-27 00:01] LABS: Thyroid Stimulating Hormone 1.1 uIU/mL (0.358-3.740)
[2024-10-27 00:03] LABS: Barbiturates NEGATIVE (NEGATIVE); Benzodiazepines NEGATIVE (NEGATIVE); Cocaine NEGATIVE (NEGATIVE); METHAMPHETAM NEGATIVE (NEGATIVE); Methadone NEGATIVE (NEGATIVE); Opiates NEGATIVE (NEGATIVE); Phencyclidine NEGATIVE (NEGATIVE); THC Cannibis NEGATIVE (NEGATIVE)
[2024-10-27] MEDS ORDERED: OCTREOTIDE ACETATE 100 MCG/ML ONE (00:34)
[2024-10-27] MEDS ORDERED: KCL 20 MEQ/100 mL IVPB 100 ML IV ONE (00:34)
[2024-10-27 01:52] LABS: Anion Gap 8.9 mEq/L (5.0-15.0); Bilirubin Total 0.3 mg/dL (0.2-1.0); Potassium 3.9 mEq/L (3.5-5.1)
--- NOTE | 2024-10-27 02:33 | EDPHYS ---
Physician Documentation [facility] Name: Chi Kelley Age: 54 yrs Sex: Male : 1970 Arrival Date: 10/26/2024 Time: 22:17 Bed 3 Private MD: ED Physician Jarret Arndt HPI: 10/26 22:40 This 54 yrs old Male presents to ER via EMS with complaints of Overdose. sp4 10/27 02:33 This is a 54-year-old male with history of depression presents with polysubstance sp4 overdose patient reportedly took estimated 30 tablets of mirtazapine 50 mg each, also estimated 30 tablets quetiapine 50 mg each, also estimated 30 tablets of levothyroxine 88 mcg each, additionally patient took possibly 60 tablets of trazodone 100 mg each, glipizide 30 tablets 5 mg each, pantoprazole 30 tablets 40 mg each, and lastly sertraline 100 mg tablets reported several 5-6 total. Patient states she was depressed and wanted to commit suicide. Patient has [place] and police presents on arrival. Patient arrived with EMS . EMS reported that patient's has called EMS. Patient is not able to say exactly how many tablets of each medication he has consumed. Hemodynamically stable on arrival.. Historical: - Allergies: 10/26 22:29 Hydrocodone-Acetaminophen; cp4 - Immunization history:: Adult Immunizations up to date. - Infectious Disease History:: Denies. - Social history:: Smoking status: Patient reports the use of cigarette tobacco products, smokes one pack cigarettes per day. - Family history:: not pertinent. ROS: 10/27 02:36 Constitutional: Negative for fever, chills, and weight loss, positive for depression sp4 and positive overdose All other systems are negative, Exam: 02:36 Constitutional: This is a well developed, well nourished patient who is awake, alert, sp4 and in no acute distress. Head/Face: Normocephalic, atraumatic. Eyes: Pupils equal round and reactive to light, extra-ocular motions intact. Lids and lashes normal. Conjunctiva and sclera are not injected. Cornea within normal limits. Periorbital areas with no swelling, redness, or edema. ENT: Nares patent. No nasal discharge, no septal abnormalities noted. Tympanic membranes are normal and external auditory canals are clear. Oropharynx with no redness, swelling, or masses, exudates, or evidence of obstruction, uvula midline. Mucous membranes moist. Neck: Trachea midline, no thyromegaly or masses palpated, and no cervical lymphadenopathy. Supple, full range of motion without nuchal rigidity, or vertebral point tenderness. Chest/axilla: Normal chest wall appearance and motion. Nontender with no deformity. No lesions are appreciated. Cardiovascular: Regular rate and rhythm with a normal S1 and S2. No gallops, murmurs, or rubs. Normal PMI, no JVD. No pulse deficits. Respiratory: Lungs have equal breath sounds bilaterally, clear to auscultation and percussion. No rales, rhonchi or wheezes noted. No increased work of breathing, no retractions or nasal flaring. Abdomen/GI: Soft, with normal bowel sounds. No distension or tympany. No guarding or rebound. No evidence of tenderness throughout. Back: No spinal tenderness. No costovertebral tenderness. Skin: Warm, dry with normal turgor. Normal color with no rashes, no lesions, and no evidence of cellulitis. MS/ Extremity: Pulses equal, no cyanosis. Neurovascular intact. Full, normal range of motion. Neuro: Awake and alert, GCS 15, oriented to person, place, time, and situation. Cranial nerves II-XII grossly intact. Motor strength 5/5 in all extremities. Sensory grossly intact. Psych: Awake, alert, with orientation to person, place and time. Behavior, mood, and affect are within normal limits 04:41 ECG was reviewed by the Attending Physician. EKG 2232 normal sinus rhythm rate 83, sp4 Vital Signs: 10/26 22:24 BP 124 / 83; Pulse 83; Resp 17; Temp 98.2; Pulse Ox 97% ; Pain 0/10; cp4 23:00 BP 139 / 78; Pulse 75; Resp 18; Pulse Ox 98% ; cp4 23:30 BP 138 / 77; Pulse 88; Resp 18; Pulse Ox 100% ; cp4 10/27 00:00 BP 135 / 73; Pulse 82; Resp 17; Pulse Ox 100% ; cp4 00:30 BP 138 / 85; Pulse 75; Resp 18; Pulse Ox 99% ; cp4 01:00 BP 126 / 89; Pulse 67; Resp 18; Pulse Ox 97% ; cp4 01:30 BP 127 / 73; Pulse 73; Resp 16; Pulse Ox 100% ; cp4 02:00 BP 123 / 75; Pulse 69; Resp 16; Pulse Ox 98% ; cp4 02:30 BP 132 / 78; Pulse 69; Resp 16; Pulse Ox 98% ; cp4 03:00 BP 131 / 73; Pulse 68; Resp 14; Pulse Ox 98% on R/A; al5 03:30 BP 129 / 84; Pulse 66; Resp 12; Pulse Ox 100% on R/A; cp4 04:00 BP 130 / 81; Pulse 65; Resp 13; Pulse Ox 99% on R/A; al5 04:30 BP 125 / 78; Pulse 66; Resp 13; Pulse Ox 99% on R/A; al5 10/26 22:24 Pain Scale: Adult cp4 William Coma Score: 02:36 Eye Response: spontaneous(4). Motor Response: obeys commands(6). Verbal Response: sp4 oriented(5). Total: 15. Procedures: 00:16 Central Line: the site was prepped with Betadine, in sterile fashion, a triple lumen sp4 catheter was inserted, in the right internal jugular vein, in 1 attempts. placement was verified, by CXR, by blood return, Ultrasound-guided central line, the site was dressed with 4X4s, foam tape, using sterile technique, the patient tolerated the procedure, well. MDM: 10/26 22:24 Medical Screening Exam initiated sp4 22:38 ED course: Poison control recommendations --blood glucose check every hour, Shrestha sp4 catheter, monitor for seizures, provide Bentyl for seizures, give IV dextrose, octreotide IV 50 to 100 mcg or subcutaneous, give atropine for bradycardia, monitor for 24 hours, medical clearance can only be accomplished after 24 hours of monitoring, . 10/27 02:36 Differential diagnosis: Ingestion/exposure to Quetiapine, trazodone polypharmacy, over sp4 medication, hypoglycemia. Data reviewed: vital signs, nurses notes, EMS record, old medical records, lab test result(s), EKG, radiologic studies, plain films. Consideration of Admission/Observation Escalation of care including admission/observation considered. ED course: EXAM: XR Chest, 1 View CLINICAL HISTORY: Right CVL placement TECHNIQUE: Frontal view of the chest. COMPARISON: No relevant prior studies available. FINDINGS: Lungs: Unremarkable. No consolidation. Pleural space: Unremarkable. No pneumothorax. Heart: Unremarkable. No cardiomegaly. Mediastinum: Unremarkable. Normal mediastinal contour. Bones/joints: Multilevel spondylosis. No acute fracture. Tubes, lines and devices: Right internal jugular central venous catheter tip projects over the mid to distal superior vena cava. IMPRESSION: Right internal jugular central venous catheter tip projects over the mid to distal superior vena cava.. ED course: Patient was monitored in the emergency room for 4-1/2 hours and remained stable. Blood pressure stable heart rate normal. Patient stable for admission to ICU for further monitoring.. 10/26 22:22 Order name: Acetaminophen; Complete Time: 00:16 sp4 10/26 22:22 Order name: Basic Metabolic Panel; Complete Time: 00:16 4 10/26 22:22 Order name: CBC with Diff; Complete Time: 23:47 sp4 10/26 22:22 Order name: ETOH Level; Complete Time: 00:16 sp4 10/26 22:22 Order name: Hepatic Function; Complete Time: 00:16 sp4 10/26 22:22 Order name: PT-INR; Complete Time: 23:47 sp4 10/26 22:22 Order name: Ptt, Activated; Complete Time: 23:47 sp4 10/26 22:22 Order name: Salicylate; Complete Time: 23:47 sp4 10/26 22:22 Order name: Urinalysis w/ reflexes; Complete Time: 23:47 sp4 10/26 22:22 Order name: Urine Drug Screen; Complete Time: 00:16 sp4 10/26 22:40 Order name: CK; Complete Time: 00:16 sp4 10/26 22:40 Order name: Lactate w/ 2H reflex if indic.; Complete Time: 00:16 sp4 10/26 22:40 Order name: AMMONIA; Complete Time: 00:16 sp4 10/26 22:40 Order name: T4 Free; Complete Time: 00:16 sp4 10/26 22:40 Order name: TSH; Complete Time: 00:16 sp4 10/26 23:58 Order name: Ghost Lactate-NO COLLECT Timer; Complete Time: 02:30 EDMS 10/27 00:43 Order name: Lactate w/ 2H reflex if indic.; Complete Time: 02:30 sp4 10/27 00:43 Order name: CMP; Complete Time: 02:30 sp4 10/27 01:12 Order name: Glucose, Ancillary Testing; Complete Time: 02:30 EDMS 10/27 01:57 Order name: Ghost Lactate-NO COLLECT Timer; Complete Time: 04:38 EDMS 10/27 04:10 Order name: Glucose, Ancillary Testing; Complete Time: 04:38 EDMS 10/27 04:38 Order name: Lactate Sepsis 2 HR Follow-up; Complete Time: 04:38 EDMS 10/26 23:47 Order name: Chest Single View XRAY sp4 10/26 22:22 Order name: EKG; Complete Time: 22:23 sp4 10/26 22:22 Order name: EKG - Nurse/Tech; Complete Time: 23:11 sp4 10/26 22:22 Order name: IV Saline Lock; Complete Time: 23:11 sp4 10/26 22:22 Order name: Labs collected and sent; Complete Time: 23:11 sp4 10/26 22:22 Order name: Suicide Precautions; Complete Time: 23:11 sp4 10/26 22:22 Order name: Suicide Screening ([place]); Complete Time: 23:11 sp4 10/26 22:24 Order name: Central Line Dressing Kit; Complete Time: 23:08 sp4 10/26 22:24 Order name: Central Line Kit; Complete Time: 23:08 sp4 10/26 22:24 Order name: Chlorhexidine prep; Complete Time: 23:08 sp4 10/26 22:24 Order name: Consent for central line completed; Complete Time: 23: sp4 10/26 22:24 Order name: Line Caps x3; Complete Time: 23: sp4 10/26 22:24 Order name: NS Flushes x3; Complete Time: 23: sp4 10/26 22:24 Order name: Sterile Gloves; Complete Time: 23: sp4 10/26 22:24 Order name: Sterile Probe Cover; Complete Time: 23: sp4 EC/09 22:32 Rate is 83 beats/min. Rhythm is regular, Normal Sinus Rhythm. QRS [place] is Normal. DC sp4 interval is normal. QRS interval is normal. QT interval is normal. No Q waves. T waves are Normal. No ST changes noted. Clinical impression: No evidence of ischemia. Interpreted by me. Reviewed by me. Administered Medications: 22:51 Drug: Actidose-Sorbitol PO Suspension 50 grams PO once Route: PO; cp4 23:51 Follow up: Response: No adverse reaction cp4 23:09 Drug: NS 0.9% IV 1000 ml IV at 1 bolus Per protocol; to be given as a bolus over 60 cp4 minutes Route: IV; Rate: 1 bolus; Site: left hand; 10/27 00:42 Follow up: IV Status: Completed infusion cp4 10/26 23:09 Drug: NS 0.9% IV 1000 ml IV at 1 bolus Per protocol; to be given as a bolus over 60 cp4 minutes Route: IV; Rate: 1 bolus; Site: left hand; 10/27 00:42 Follow up: IV Status: Completed infusion cp4 10/26 23:09 Drug: Ondansetron IVP 4 mg IVP once; over 2 minutes Route: IVP; Site: right antecubital;cp4 23:52 Follow up: Response: No adverse reaction cp4 23:09 Drug: NS 0.9% IV 1000 ml IV at 250 ml/hr Per protocol; to be given as a bolus over 60 cp4 minutes Route: IV; Rate: 250 ml/hr; Site: right antecubital; 10/27 03:28 Follow up: Response: No adverse reaction; IV Status: Completed infusion; IV Intake: cp4 1000ml 10/26 23:09 Drug: Sodium Bicarbonate IVP 1 amp IVP once; (50 mL); equals 50 mEq Route: IVP; Site: cp4 right antecubital; 23:51 Follow up: Response: No adverse reaction cp4 23:10 Drug: Sodium Bicarbonate IVP 1 amp IVP once; (50 mL); equals 50 mEq Route: IVP; Site: cp4 right antecubital; 23:51 Follow up: Response: No adverse reaction cp4 23:10 Drug: Calcium Gluconate IVPB 2 grams IVPB once over 60 mins; (mix in NS 100 mL) Route: cp4 IVPB; Infused Over: 60 mins; Site: right antecubital; 10/27 00:42 Follow up: Response: No adverse reaction; IV Status: Completed infusion cp4 00:41 Drug: Octreotide Sub-Q 50 mcg Sub-Q once Route: Sub-Q; Site: abdomen; cp4 03:19 Follow up: Response: No adverse reaction cp4 00:41 Drug: Potassium Chloride IV 20 mEq IV at calculated rate once; administer over 1-2 cp4 hours Route: IV; Rate: calculated rate; Site: right antecubital; 03:28 Follow up: Response: No adverse reaction; IV Status: Completed infusion; IV Intake: [id number] Disposition Summary: 10/27/24 02:33 Hospitalization Ordered Notes: Hospitalization Status: Inpatient Admission sp4 Provider: Landon Hooks4 Location: Intensive Care Unit sp4 Condition: Serious sp4 Problem: new sp4 Symptoms: have improved sp4 Bed/Room Type: Standard sp4 Room Assignment: 5-(10/27/24 03:40) cp4 Diagnosis - Polysubstance overdose, mirtazapine overdose, quetiapine overdose, levothyroxine sp4 overdose, trazodone overdose, glipizide overdose, sertraline overdose, depression with suicide attempt Forms: - Medication Reconciliation Form sp4 - SBAR form sp4 - Leadership Thank You Letter sp4 Critical care time excluding procedures: 00:17 Critical care time: Bedside Care: 56 minutes, Consultation: 12 minutes, Family sp4 Intervention: 12 minutes. Total time: 80 minutes Signatures: Dispatcher [employer] EDJarret Summers MD MD sp4 Jazmin Adam cp4 Corrections: (The following items were deleted from the chart) 10/26 22:41 22:41 T4 FREE+C.LAB.BRZ ordered. EDMS EDMS 22:41 22:41 THYROID STIMULAT HORMONE+C.LAB.BRZ ordered. EDMD EDMD 10/27 03:40 02:33 sp4 cp4
--- NOTE | 2024-10-27 02:33 | ER ---
Nurse's Notes [facility] Name: Chi Kelley Age: 54 yrs Sex: Male : 1970 Arrival Date: 10/26/2024 Time: 22:17 Bed 3 Private MD: Diagnosis: Polysubstance overdose, mirtazapine overdose, quetiapine overdose, levothyroxine overdose, trazodone overdose, glipizide overdose, sertraline overdose, depression with suicide attempt Presentation: 10/26 22:24 Chief complaint: Patient states: suicide attempt. Patient took approximately 150 cp4 different prescription pills attempting to commit suicide. Coronavirus screen: Client denies travel out of the [place] in the last 14 days. At this time, the client does not indicate any symptoms associated with coronavirus-19. Ebola Screen: Patient negative for fever greater than or equal to 101.5 degrees Fahrenheit, and additional compatible Ebola Virus Disease symptoms Patient denies exposure to infectious person. Patient denies travel to an Ebola-affected area in the 21 days before illness onset. No symptoms or risks identified at this time. Initial Sepsis Screen: Does the patient meet any 2 criteria? No. Patient's initial sepsis screen is negative. Does the patient have a suspected source of infection? No. Patient's initial sepsis screen is negative. Risk Assessment: Do you want to hurt yourself or someone else? Patient reports desire/thoughts of hurting themselves or someone else. Provider notified. Onset of symptoms was October 26, 2024 at 21:30. 22:24 Method Of Arrival: EMS: [facility] cp4 22:24 Acuity: DORIAN 2 cp4 Triage Assessment: 22:29 General: Appears in no apparent distress. uncomfortable, Behavior is calm, cooperative, cp4 appropriate for age. Pain: Denies pain. EENT: No signs and/or symptoms were reported regarding the EENT system. Neuro: Level of Consciousness is awake, alert, obeys commands, Oriented to person, place, time, situation. Cardiovascular: Patient's skin is warm and dry. Rhythm is sinus rhythm. Respiratory: Airway is patent Respiratory effort is even, unlabored. GI: No signs and/or symptoms were reported involving the gastrointestinal system. : No signs and/or symptoms were reported regarding the genitourinary system. Derm: No signs and/or symptoms reported regarding the dermatologic system. Musculoskeletal: No signs and/or symptoms reported regarding the musculoskeletal system. Historical: - Allergies: 22:29 Hydrocodone-Acetaminophen; cp4 - Immunization history:: Adult Immunizations up to date. - Infectious Disease History:: Denies. - Social history:: Smoking status: Patient reports the use of cigarette tobacco products, smokes one pack cigarettes per day. - Family history:: not pertinent. Screenin:32 [facility] ED Fall Risk Assessment (Adult) History of falling in the last 3 months, cp4 including since admission No falls in past 3 months (0 pts) Confusion or Disorientation No (0 pts) Intoxicated or Sedated No (0 pts) Impaired Gait No (0 pts) Mobility Assist Device Used No (0 pt) Altered Elimination No (0 pt) Score/Fall Risk Level 0 - 2 = Low Risk Oriented to surroundings, Maintained a safe environment, Assessed \\T\\ reinforced patient's understanding of fall precautions, Hourly rounding (assess needs \\T\\ fall precautionary measures) done. Abuse screen: Denies threats or abuse. Nutritional screening: No deficits noted. Tuberculosis screening: No symptoms or risk factors identified. Assessment: 22:20 Reassessment: CONTACTED POISON CONTROL. CASE # [id number]. MONITOR FOR SEIZURES, URINARY ha1 RETENTION, LOW GLUCOSE. GIVE ACTIVATED CHARCOAL, GLUCOSE CHECK EVERY HOUR. GIVE ATROPINE FOR LOW HEART RATE, DEXTROSE FOR LOW GLUCOSE. NEEDS TO BE MONITOR FOR 24 HOURS BEFORE MEDICAL CLEARANCE . COLLECT LABS SALICYLATES AND ACETAMINOPHEN LEVELS. PERFORM EKGS. 22:32 Reassessment: No changes from previously documented assessment. cp4 23:30 Reassessment: Patient appears in no apparent distress at this time. Patient and/or cp4 family updated on plan of care and expected duration. Pain level reassessed. Patient is alert, oriented x 3, equal unlabored respirations, skin warm/dry/pink. 10/27 00:30 Reassessment: Patient appears in no apparent distress at this time. Patient and/or cp4 family updated on plan of care and expected duration. Pain level reassessed. Patient is alert, oriented x 3, equal unlabored respirations, skin warm/dry/pink. 00:55 Reassessment: List of pills missing from pill packs: sertraline 100 mg (30), cp4 Mirtazapine 15 mg (22), glipizide 5 mg (22), pantoprazole 40 mg (23), trazodone 100 mg (30), levothyroxine 88 mcg (18), quetiapine 50 mg (22). 01:30 Reassessment: Patient appears in no apparent distress at this time. Patient and/or cp4 family updated on plan of care and expected duration. Pain level reassessed. Patient is alert, oriented x 3, equal unlabored respirations, skin warm/dry/pink. 02:30 Reassessment: Patient appears in no apparent distress at this time. Patient and/or cp4 family updated on plan of care and expected duration. Pain level reassessed. Patient is alert, oriented x 3, equal unlabored respirations, skin warm/dry/pink. 03:00 General: Appears in no apparent distress. comfortable, Behavior is calm, sleeping cp4 comfortably at this time. Neuro: Level of Consciousness is awake, alert, obeys commands, Oriented to person, place, time, situation. Cardiovascular: Capillary refill < 3 seconds Patient's skin is warm and dry. Rhythm is sinus rhythm. Respiratory: Airway is patent Respiratory effort is even, unlabored, Respiratory pattern is regular, symmetrical. GI: No deficits noted. : No deficits noted. EENT: No deficits noted. Derm: Skin is intact, is healthy with good turgor, Skin is pink, warm \\T\\ dry. normal. Musculoskeletal: No deficits noted. 03:53 Reassessment: report given to nancy rn in ICU. al5 04:44 Reassessment: Patient appears in no apparent distress at this time. No changes from al5 previously documented assessment. Patient and/or family updated on plan of care and expected duration. Pain level reassessed. Patient is alert, oriented x 3, equal unlabored respirations, skin warm/dry/pink. Overdose: 10/26 22:33 [place] Suicide Severity Screening: "In the past month, have you wished you were cp4 or wished you could go to sleep and not wake up?" Patient responds "yes." Based off client's responses, additional C-SSRS screening questions required. "In the past month, have you actually had any thoughts of killing yourself?" Patient responds "yes." Based off client's responses, additional C-SSRS screening questions required. "In your lifetime, have you ever done anything, started to do anything, or prepared to do anything to end your life?" Patient responds "yes." Patient reports suicidal intent occurred greater than 3 months prior. Overdose occurred 30 minutes to 1 hour ago. Vital Signs: 22:24 BP 124 / 83; Pulse 83; Resp 17; Temp 98.2; Pulse Ox 97% ; Pain 0/10; cp4 23:00 BP 139 / 78; Pulse 75; Resp 18; Pulse Ox 98% ; cp4 23:30 BP 138 / 77; Pulse 88; Resp 18; Pulse Ox 100% ; cp4 01/10 00:00 BP 135 / 73; Pulse 82; Resp 17; Pulse Ox 100% ; cp4 00:30 BP 138 / 85; Pulse 75; Resp 18; Pulse Ox 99% ; cp4 01:00 BP 126 / 89; Pulse 67; Resp 18; Pulse Ox 97% ; cp4 01:30 BP 127 / 73; Pulse 73; Resp 16; Pulse Ox 100% ; cp4 02:00 BP 123 / 75; Pulse 69; Resp 16; Pulse Ox 98% ; cp4 02:30 BP 132 / 78; Pulse 69; Resp 16; Pulse Ox 98% ; cp4 03:00 BP 131 / 73; Pulse 68; Resp 14; Pulse Ox 98% on R/A; al5 03:30 BP 129 / 84; Pulse 66; Resp 12; Pulse Ox 100% on R/A; cp4 04:00 BP 130 / 81; Pulse 65; Resp 13; Pulse Ox 99% on R/A; al5 04:30 BP 125 / 78; Pulse 66; Resp 13; Pulse Ox 99% on R/A; al5 10/26 22:24 Pain Scale: Adult cp4 [place] Coma Score: 02:36 Eye Response: spontaneous(4). Motor Response: obeys commands(6). Verbal Response: sp4 oriented(5). Total: 15. ED Course: 10/26 22:18 Patient arrived in ED. [id number] 22:22 Jarret Arndt MD is Attending Physician. sp4 22:24 Jazmin Adam is Primary Nurse. cp4 22:26 Triage completed. cp4 22:29 Arm band placed on right wrist. Patient placed in an exam room, on a stretcher. cp4 22:32 Bed in low position. Call light in reach. Side rails up X2. Seizure precautions cp4 initiated. 22:32 Maintain EMS IV. Dressing intact. Good blood return noted. Site clean \\T\\ dry. Gauge \\T\\ cp 4 site: 22 RAC. Flushed with 10 mL NS. 23:05 Inserted saline lock: 20 gauge in left wrist, using aseptic technique. Blood collected. hw Flushed with 10 mL NS. 23:13 Provided Education on: Procedure Consent. cp4 23:48 Assisted provider with central line placement. Set up central line tray. Triple lumen cp4 line placed in right internal jugular. Line placed by Jarret Arndt MD Placement verified by CXR, blood return, Dressed with Tegaderm, Patient tolerated well. 10/27 00:27 Chest Single View XRAY In Process Unspecified. EDMS 02:31 Landon Hooks MD is Hospitalizing Provider. sp4 03:16 Patient admitted, IV remains in place. cp4 Administered Medications: 10/26 22:51 Drug: Actidose-Sorbitol PO Suspension 50 grams PO once Route: PO; cp4 23:51 Follow up: Response: No adverse reaction cp4 23:09 Drug: NS 0.9% IV 1000 ml IV at 1 bolus Per protocol; to be given as a bolus over 60 cp4 minutes Route: IV; Rate: 1 bolus; Site: left hand; 10/27 00:42 Follow up: IV Status: Completed infusion cp4 10/26 23:09 Drug: NS 0.9% IV 1000 ml IV at 1 bolus Per protocol; to be given as a bolus over 60 cp4 minutes Route: IV; Rate: 1 bolus; Site: left hand; 10/27 00:42 Follow up: IV Status: Completed infusion cp4 10/26 23:09 Drug: Ondansetron IVP 4 mg IVP once; over 2 minutes Route: IVP; Site: right antecubital;cp4 23:52 Follow up: Response: No adverse reaction cp4 23:09 Drug: NS 0.9% IV 1000 ml IV at 250 ml/hr Per protocol; to be given as a bolus over 60 cp4 minutes Route: IV; Rate: 250 ml/hr; Site: right antecubital; 10/27 03:28 Follow up: Response: No adverse reaction; IV Status: Completed infusion; IV Intake: cp4 1000ml 10/26 23:09 Drug: Sodium Bicarbonate IVP 1 amp IVP once; (50 mL); equals 50 mEq Route: IVP; Site: cp4 right antecubital; 23:51 Follow up: Response: No adverse reaction cp4 23:10 Drug: Sodium Bicarbonate IVP 1 amp IVP once; (50 mL); equals 50 mEq Route: IVP; Site: cp4 right antecubital; 23:51 Follow up: Response: No adverse reaction cp4 23:10 Drug: Calcium Gluconate IVPB 2 grams IVPB once over 60 mins; (mix in NS 100 mL) Route: cp4 IVPB; Infused Over: 60 mins; Site: right antecubital; 10/27 00:42 Follow up: Response: No adverse reaction; IV Status: Completed infusion cp4 00:41 Drug: Octreotide Sub-Q 50 mcg Sub-Q once Route: Sub-Q; Site: abdomen; cp4 03:19 Follow up: Response: No adverse reaction cp4 00:41 Drug: Potassium Chloride IV 20 mEq IV at calculated rate once; administer over 1-2 cp4 hours Route: IV; Rate: calculated rate; Site: right antecubital; 03:28 Follow up: Response: No adverse reaction; IV Status: Completed infusion; IV Intake: [id number] Medication: 10/26 22:32 VIS not applicable for this client. cp4 Intake: 10/27 03:28 IV: 1000ml; Total: 1000ml. cp4 03:28 IV: 50ml; Total: 1050ml. cp4 Output: 00:53 Urine: 1150ml (Voided); Total: 1150ml. cp4 Outcome: 02:33 Decision to Hospitalize by Provider. sp4 04:44 Admitted to ICU accompanied by nurse, accompanied by tech, via stretcher, room 5, on al5 monitor, with chart, Report called to nancy rn 04:44 Condition: stable 04:44 Instructed on the need for admit, 05:02 Patient left the ED. al5 Signatures: Dispatcher [employer] EDMS Renita Gilliland6 Deepthi Schulte RN RN Jarret Cade MD MD sp4 Jazmin Adam cp4 Linda Davis RN RN al5 Araceli Villela Corrections: (The following items were deleted from the chart) 10/26 23:36 22:20 Reassessment: CONTACTED POISON CONTROL ha1 ha1
[2024-10-27] MEDS ORDERED: ALBUTEROL 2.5 MG/3 ML NEB SOL NEB PRN (03:08)
--- NOTE | 2024-10-27 03:08 | P.HP ---
Certification for Inpatient Patient admitted to: Inpatient With expected LOS: >2 Midnights Practitioner: I am a practitioner with admitting privileges, knowledge of patient current condition, hospital course, and medical plan of care. Services: Services provided to patient in accordance with Admission requirements found in Title 42 Section 412.3 of the Code of Federal Regulations Patient History Date of Service: 10/27/24 Reason for admission: overdose History of Present Illness: 54-year-old male presented via EMS with complaints of overdose. It was reported that he had consumed a large amount of mirtazapine, quetiapine, levothyroxine, trazodone, glipizide, sertraline with attempt for suicide. Poison control was contacted. Recommended blood glucose monitors every hours monitoring for seizures Bentyl for seizures IV dextrose, octreotide as well as atropine for bradycardia. Initial blood work showed an elevated lactate. As well as slightly decreased potassium. He did report some mild shortness of breath. States this is unchanged from his baseline. The patient did receive charcoal. A central line was placed. He was monitored in the ER for an extended period before admission was initiated. Allergies No Known Allergies Allergy (Verified 07/27/20 20:48) Home Medications: Albuterol Neb [Proventil 0.083% Neb Soln] 2.5 mg NEB PRN PRN 08/18/18 Trazodone [Desyrel*] 50 mg PO BEDTIME 08/18/18 Cyclobenzaprine HCl [Flexeril] 1 tab PO BEDTIME 07/27/20 Levothyroxine [Synthroid*] 1 tab PO DAILY 07/27/20 Pantoprazole [Protonix Tab*] 1 tab PO DAILY 07/27/20 Albuterol Neb [Proventil 0.083% Neb Soln] 2.5 mg NEB Q6HP PRN amp 07/28/20 Meclizine HCl [Antivert*] 25 mg PO BID tab 07/28/20 Melatonin 10 mg PO BEDTIME PRN PRN tablet 07/28/20 Aspirin [Aspirin EC 81 MG] 81 mg PO DAILY #30 tablet. 10/10/24 Atorvastatin Calcium 40 mg PO DAILY #30 tablet 10/10/24 Metformin HCl 500 mg PO BID #60 tab 10/10/24 - Past Medical/Surgical History Diabetic: Yes -: Hypothyroidism -: GERD -: DMT2 -: Insomnia -: HDL -: Tobacco abuse -: Left inguinal hernia repair -: Ankle surgery Psychosocial/ Personal History: He is , has 1 child, he does not work. He is currently disabled. - Family History Mother -: Cancer Notes: brain and lung Father -: Heart disease, Lung disease, Diabetes, Cancer Notes: lung cancer - Social History Alcohol use: No CD- Drugs: No Caffeine use: Yes Review of Systems 10-point ROS is otherwise unremarkable Respiratory: Shortness of Breath Physical Examination - Physical Exam General: Oriented x3, Disheveled HEENT: Atraumatic, Normocephalic Respiratory: Clear to auscultation bilaterally, Normal air movement Cardiovascular: Normal pulses, Regular rate/rhythm Gastrointestinal: Normal bowel sounds, Non-distended Musculoskeletal: No clubbing Integumentary: No rashes Neurological: Normal speech - Studies Laboratory Data (last 24 hrs) 10/27/24 10/26/24 10/26/24 01:16 22:46 22:16 WBC Hgb Hct Plt Count PT 11.8 INR 1.06 APTT 31.3 Sodium 141 138 Potassium 3.9 D 3.4 L BUN 9 10 Creatinine 0.88 0.98 Glucose 167 H 134 H Total Bilirubin 0.3 0.3 AST 30 34 ALT 61 72 H Alkaline Phosphatase 69 76 10/26/24 22:16 WBC 10.80 Hgb 14.0 Hct 41.2 Plt Count 190 PT INR APTT Sodium Potassium BUN Creatinine Glucose Total Bilirubin AST ALT Alkaline Phosphatase Assessment and Plan - Problems (Diagnosis) (1) Overdose Current Visit: Yes Status: Acute (2) Depression Current Visit: Yes Status: Acute (3) Type 2 diabetes mellitus Current Visit: No Status: Acute (4) COPD (chronic obstructive pulmonary disease) Onset Date: 10/05/16 Current Visit: No Status: Chronic Qualifiers: (5) Hypothyroidism Onset Date: 10/05/16 Current Visit: No Status: Chronic Qualifiers: - Plan 54-year-old male presented via EMS with complaints of overdose. It was reported that he had consumed a large amount of mirtazapine, quetiapine, levothyroxine, trazodone, glipizide, sertraline with attempt for suicide. Poison control was contacted. Recommended blood glucose monitors every hours monitoring for seizures Bentyl for seizures IV dextrose, octreotide as well as atropine for bradycardia. Initial blood work showed an elevated lactate. As well as slightly decreased potassium. He did report some mild shortness of breath. States this is unchanged from his baseline. The patient did receive charcoal. A central line was placed. He was monitored in the ER for an extended period before admission was initiated. #overdose #suicide attempt #depression #NIDDM #hypothyroidism #COPD Plan: Will admit him to the ICU. Every hour blood sugar monitoring D5 half NS Seizure precautions Atropine for bradycardia Thyroid studies were ordered We will hold all medications for now Will need psych consult once stable and cleared - Advance Directives Does patient have a Living Will: No Does patient have a Durable POA for Healthcare: No
[2024-10-27] MEDS: D5 0.45 NS 1,000 ML IV SCH (05:21)
[2024-10-27 05:36] VITALS: BMI 31.9
--- NOTE | 2024-10-27 05:55 | RAD REPORT ---
EXAM: XR Chest, 1 View CLINICAL HISTORY: Right CVL placement TECHNIQUE: Frontal view of the chest. COMPARISON: No relevant prior studies available. FINDINGS: Lungs: Unremarkable. No consolidation. Pleural space: Unremarkable. No pneumothorax. Heart: Unremarkable. No cardiomegaly. Mediastinum: Unremarkable. Normal mediastinal contour. Bones/joints: Multilevel spondylosis. No acute fracture. Tubes, lines and devices: Right internal jugular central venous catheter tip projects over the mid to distal superior vena cava. IMPRESSION: Right internal jugular central venous catheter tip projects over the mid to distal superior vena cava . Electronically signed by: Dianelys Campos MD 10/27/2024 01:29 AM [facility] Due to temporary technical issues with the PACS/Cipher[employer] reporting system, reports are being juliette d by the in-house radiologist without review as a courtesy to ensure prompt reporting the interpreting radiologist is fully responsible for the content of the report. Transcribed Date/Time: 10/27/2024 5:55 AM
--- NOTE | 2024-10-27 16:26 | P.PN ---
Date of Service: 10/27/24 Patient seen and examined. Patient is awake and alert, currently denies any complain. He denies any abdominal pain. Patient states he is hungry and wants to eat/ Blood pressure has been stable No seizures. AMS resolved. No hypoglycemia episode. Patient is clinically stable. [facility] to evaluate for possible inpatient psych.
[2024-10-27 20:36] VITALS: TEMP 97.2
[2024-10-28 01:26] VITALS: O2SAT 96
[2024-10-28 02:59] VITALS: BP 114/64
[2024-10-28] MEDS ORDERED: LEVOTHYROXINE SOD 0.088 MG TAB PO SCH (06:30)
[2024-10-28] MEDS ORDERED: PANTOPRAZOLE 40MG TABLET PO SCH (09:00)
== END 2024-10-28 02:50 | DRG 918 ==
LOC: ER 22:17 → ERHOLD 10-27 03:08 → 3RD-ICU 10-27 04:17
PROVIDERS: ADMIT Internal Medicine; ATTEND Internal Medicine
PROC: 02HV33Z Insertion of Infusion Device into Superior Vena Cava, Percutaneous Approach (ICD-10-PCS; principal; 2024-10-27)
DX: T43.022A Poisoning by tetracyclic antidepressants, intentional self-harm, initial encounter (principal); T43.592A Poisoning by other antipsychotics and neuroleptics, intentional self-harm, initial encounter; T38.1X2A Poisoning by thyroid hormones and substitutes, intentional self-harm, initial encounter; T43.212A Poisoning by selective serotonin and norepinephrine reuptake inhibitors, intentional self-harm, initial encounter; T38.3X2A Poisoning by insulin and oral hypoglycemic [antidiabetic] drugs, intentional self-harm, initial encounter; T47.1X2A Poisoning by other antacids and anti-gastric-secretion drugs, intentional self-harm, initial encounter; T43.222A Poisoning by selective serotonin reuptake inhibitors, intentional self-harm, initial encounter; Z88.5 Allergy status to narcotic agent; F32.A Depression, unspecified; F17.210 Nicotine dependence, cigarettes, uncomplicated; Z79.82 Long term (current) use of aspirin; Z79.84 Long term (current) use of oral hypoglycemic drugs; Z79.890 Hormone replacement therapy; Z79.899 Other long term (current) drug therapy; E03.9 Hypothyroidism, unspecified; K21.9 Gastro-esophageal reflux disease without esophagitis; E11.9 Type 2 diabetes mellitus without complications; E78.5 Hyperlipidemia, unspecified; J44.9 Chronic obstructive pulmonary disease, unspecified; R00.1 Bradycardia, unspecified; Z23 Encounter for immunization
CPT/HCPCS: 36415; 36556; 71045; 80048; 80053; 80076; 80143; 80179; 80307; 81001; 82077; 82140; 82550; 82947; 83605; 84439; 84443; 85025; 85610; 85730; 96365; 96366; 96372; 96375; 99285; J0612; J2354; J2405; J3480; J7030; J7799

== ENCOUNTER 2024-11-23 23:16 | Emergency (ER) | payer OTHER ==
[2024-11-23 23:42] LABS: Specific Gravity 1.026 (1.005-1.030); Sqamous Epithelial None Seen /HPF (None Seen); Urine Bacteria None Seen /HPF (<20); Urine Bilirubin NEGATIVE (Negative); Urine Blood Negative (Negative); Urine Clarity Clear (Clear); Urine Color Light-Yellow (Yellow); Urine Culture Reflex Order NOT NEEDED; Urine Glucose 4+ (Over) (Negative); Urine Ketones NEGATIVE (Negative); Urine Microscopic Reflex YN ORDER UMIC; Urine Nitrite NEGATIVE (Negative); Urine Protein NEGATIVE (Negative); Urine RBC <5 /HPF (None Seen); Urine Urobilinogen Normal (Normal); Urine WBC None Seen /HPF (<5); Urine pH 6.5 (5.0-7.0)
[2024-11-23 23:43] LABS: Barbiturates NEGATIVE (NEGATIVE); Benzodiazepines NEGATIVE (NEGATIVE); Cocaine NEGATIVE (NEGATIVE); METHAMPHETAM NEGATIVE (NEGATIVE); Methadone NEGATIVE (NEGATIVE); Opiates NEGATIVE (NEGATIVE); Phencyclidine NEGATIVE (NEGATIVE); THC Cannibis NEGATIVE (NEGATIVE)
[2024-11-23 23:44] LABS: Absolute Basophils 0.1 K/uL (0-0.5); Absolute Eosinophils 0.2 K/uL (0-0.5); Absolute Lymphocytes (CBC) 3.3 K/uL (0.7-4.9); Absolute Monocytes 0.7 K/uL (0.1-1.3); Absolute Neutrophil 6.2 K/uL (1.8-8.0); Basophils % 1.2 % (0-1.3); Eosinophils % 2.3 % (0-4.4); Hematocrit 43.2 % (39.6-49.0); Hemoglobin 15.1 g/dL (13.6-17.9); Lymphocytes % 31.3 % (15.3-44.8); MCHC 34.9 g/dL (32.0-36.0); MCV 91.6 fL (80-100); MPV 10.4 fL (7.6-11.3); Monocytes % 6.6 % (3.3-12.3); Neutrophils % 58.6 % (41.7-73.7); Nucleated Red Blood Cells % 0.1 % (0-0); Platelets 211 thou/uL (152-406); RBC Red Blood Cell Count 4.71 M/uL (4.33-5.43)
[2024-11-23 23:46] LABS: PT Prothrombin Time 10.7 SECONDS (9.4-12.5); PTT, Activated Partial Thromb 32.9 SECONDS (24.3-36.9); Protime INR 1.02
[2024-11-23 23:56] LABS: ALT/SGPT 87 U/L (16-61); Albumin 3.6 g/dL (3.4-5.0); Albumin/Globulin Ratio 0.9 (1.1-1.8); Alkaline Phosphatase 133 U/L (45-117); Anion Gap 10.9 mEq/L (5.0-15.0); BUN Blood Urea Nitrogen 13 mg/dL (7-18); Bicarbonate 24 mEq/L (21-32); Bilirubin Total 0.3 mg/dL (0.2-1.0); Globulin 4.2 g/dL (2.3-3.5); Glomerular Filtration Rate 78 ml/min (=/>90); Glucose Level 317 mg/dL (74-106); Protein, Total 7.8 g/dL (6.4-8.2); Sodium Level 134 mEq/L (136-145)
[2024-11-24] MEDS ORDERED: KETOROLAC 30 MG/ML INJ ONE
[2024-11-24 00:06] LABS: AST/SGOT 50 U/L (15-37); Bilirubin Direct < 0.2 mg/dL (0-0.2); Bilirubin Indirect, Calculated 0.1 mg/dL (0.2-0.8); Potassium 3.9 mEq/L (3.5-5.1)
[2024-11-24] MEDS ORDERED: INSULIN REGULAR (HUMAN) 100 UNIT/ML ONE (00:48)
[2024-11-24] MEDS ORDERED: NA CHLORIDE 0.9% 1,000 ML ONE (00:49)
--- NOTE | 2024-11-24 01:44 | ER ---
Nurse's Notes [facility] Name: Chi Kelley Age: 54 yrs Sex: Male : 1970 Arrival Date: 11/23/2024 Time: 23:16 Bed 14 Private MD: Diagnosis: Suicidal ideations Presentation: 11/23 23:20 Chief complaint: Patient states: PT STATES HE HAS BEEN HAVING SUICIDAL IDEATIONS AND br2 HAD A KNIFE WANTING TO KILL HIMSELF BUT CALLED 911 INSTEAD. 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 Coronavirus screen: Client denies travel out of the [place] in the last 14 days. Ebola Screen: Patient negative for fever greater than or equal to 101.5 degrees Fahrenheit, and additional compatible Ebola Virus Disease symptoms Patient denies exposure to infectious person. Initial Sepsis Screen: Does the patient meet any 2 criteria? No. Patient's initial sepsis screen is negative. Does the patient have a suspected source of infection? No. Patient's initial sepsis screen is negative. Risk Assessment: Do you want to hurt yourself or someone else? Patient reports desire/thoughts of hurting themselves or someone else. Provider notified. Onset of symptoms was November 23, 2024. 23:20 Method Of Arrival: Law Enforcement br2 23:20 Acuity: DORIAN 3 br2 Historical: - Allergies: 23:24 Hydrocodone-Acetaminophen; br2 - Immunization history:: Adult Immunizations up to date. - Infectious Disease History:: Denies. - Social history:: Smoking status: Patient reports the use of cigarette tobacco products, smokes 8 packs per day. Screenin:30 [facility] ED Fall Risk Assessment (Adult) History of falling in the last 3 months, cp4 including since admission No falls in past 3 months (0 pts) Confusion or Disorientation No (0 pts) Intoxicated or Sedated No (0 pts) Impaired Gait No (0 pts) Mobility Assist Device Used No (0 pt) Altered Elimination No (0 pt) Score/Fall Risk Level 0 - 2 = Low Risk Oriented to surroundings, Maintained a safe environment, Assessed \\T\\ reinforced patient's understanding of fall precautions, Hourly rounding (assess needs \\T\\ fall precautionary measures) done. Abuse screen: Denies threats or abuse. Denies injuries from another. Nutritional screening: No deficits noted. Tuberculosis screening: No symptoms or risk factors identified. Assessment: 23:29 General: Appears in no apparent distress. comfortable, Behavior is calm, cooperative, cp4 appropriate for age. Pain: Complains of pain in dental Pain currently is 7 out of 10 on a pain scale. Neuro: Level of Consciousness is awake, alert, obeys commands, Oriented to person, place, time, situation. Cardiovascular: Patient's skin is warm and dry. Rhythm is sinus rhythm. Respiratory: Airway is patent Respiratory effort is even, unlabored. GI: No signs and/or symptoms were reported involving the gastrointestinal system. : No signs and/or symptoms were reported regarding the genitourinary system. EENT: No signs and/or symptoms were reported regarding the EENT system. Derm: No signs and/or symptoms reported regarding the dermatologic system. Musculoskeletal: No signs and/or symptoms reported regarding the musculoskeletal system. Psych: 23:32 [place] Suicide Severity Screening: In the past month, have you wished you were cp4 or wished you could go to sleep and not wake up? Patient responds "yes." Based off the client's responses additional C-SSRS screening is required. "In the past month, have you actually had any thoughts of killing yourself?" Patient responds "yes." Based off the client's response additional [place] suicide severity screening questions to be further documented on paper forms. "In your lifetime, have you ever done anything, started to do anything, or prepared to do anything to end your life?" Patient responds "yes." Patient reports suicidal intent within 3 past months. Subjective: Patient's mood is hopeless, Delusions are denied, Hallucinations are denied Having thoughts of suicide. Plan for suicide is knife and pills. Objective: Patient is cooperative, Speech is normal, Affect is appropriate. Interventions: Removed personal items and placed in bag. Patient placed in hospital gown. Searched person for dangerous items. Urine collected and sent for urine drug test. Belonging list filled out. Safety Checks: Personal items have been removed. Door is open. Visitors are present. Pt denies substance abuse. Commitment: Patient will be a voluntary commitment. Vital Signs: 23:20 BP 141 / 73; Pulse 100; Resp 18; Temp 97.2; Pulse Ox 92% ; Weight 90.72 kg; Height 5 br2 ft. 9 in. ; Pain 10/10; 11/24 01:32 BP 138 / 71; Pulse 94; Resp 18; Temp 97.3; Pulse Ox 94% ; Pain 0/10; cp4 11/23 23:20 Body Mass Index 29.53 (90.72 kg, 175.26 cm) br2 11/23 23:20 Pain Scale: Adult br2 11/24 01:32 Pain Scale: Adult cp4 ED Course: 11/23 23:19 Patient arrived in ED. br2 23:20 Bobby Fox MD is Attending Physician. rt 23:24 Triage completed. br2 23:28 Acetaminophen Sent. mm11 23:28 Basic Metabolic Panel Sent. mm11 23:28 CBC with Diff Sent. mm11 23:29 Jazmin Adam is Primary Nurse. cp4 23:29 ETOH Level Sent. mm11 23:29 Hepatic Function Sent. mm11 23:29 PT-INR Sent. mm11 23:29 Ptt, Activated Sent. mm11 23:29 Salicylate Sent. mm11 23:29 Urinalysis w/ reflexes Sent. mm11 23:29 Urine Drug Screen Sent. mm11 23:30 No provider procedures requiring assistance completed. Inserted saline lock: 18 gauge cp4 in right hand, using aseptic technique. Blood collected. Flushed with 10 mL NS. 23:30 Placed in gown. Bed in low position. Side rails up X2. cp4 11/24 00:24 faxed pt clinical's to various faculties. kmf 00:30 nurse to nurse with [facility]. kmf 00:50 pt was accepted to [facility] by Dr. Bryan. kmf 01:34 intact, bleeding controlled, No redness/swelling at site. Pressure dressing applied. cp4 01:34 Provided Education on: suicidal ideation. cp4 01:35 Arm band placed on right wrist. Patient placed in an exam room, on a stretcher. cp4 Administered Medications: 00:05 Drug: Ketorolac IM 15 mg IM once Route: IM; Site: right deltoid; cp4 02:00 Follow up: Response: No adverse reaction cp4 00:52 Drug: NS 0.9% IV 1000 ml IV at 1000 ml once; to be given as a bolus over 60 minutes cp4 Route: IV; Rate: 1000 ml; Site: right hand; 01:59 Follow up: IV Status: Completed infusion cp4 00:53 Drug: Insulin Regular Human Sub-Q 10 units Sub-Q once {Co-Signature: lew (arnold Mock RN).} Route: Sub-Q; Site: left upper arm; :59 Follow up: Response: No adverse reaction cp4 Medication: 11/23 23:30 VIS not applicable for this client. cp4 Outcome: 11/24 01:34 Transferred by ground EMS to other acute care facility: [facility]. Transfer cp4 form completed. X-rays sent w/ patient. Condition: stable Instructed on the need for transfer, 01:44 ER care complete, transfer ordered by MD. rt 01:58 Patient left the ED. cp4 Signatures: Bobby Fox MD MD rt Jazmin Adam cp4 Haleigh Chawla [facility] Angie Mock RN RN br2 jennifer sorensen mm11 Angie Mock RN br2
--- NOTE | 2024-11-24 01:45 | EDPHYS ---
Physician Documentation [facility] Name: Chi Kelley Age: 54 yrs Sex: Male : 1970 Arrival Date: 11/23/2024 Time: 23:16 Bed 14 Private MD: ED Physician Bobby Fox HPI: 11/24 00:19 This 54 yrs old Male presents to ER via [employer] with complaints of Suicidal rt Ideation. 00:19 Patient presents to the ED with suicidal ideation. The patient called 911, reportedly rt held up at night, then put the knife down. He did not take any pills, or injure himself. Denies other acute complaints at this time, symptoms are moderate in severity, no other aggravating alleviating factors.. Historical: - Allergies: 11/23 23:24 Hydrocodone-Acetaminophen; br2 - Immunization history:: Adult Immunizations up to date. - Infectious Disease History:: Denies. - Social history:: Smoking status: Patient reports the use of cigarette tobacco products, smokes 8 packs per day. ROS: 11/24 00:19 Constitutional: Negative for fever, chills, and weight loss, Cardiovascular: Negative rt for chest pain, palpitations, and edema, Respiratory: Negative for shortness of breath, cough, wheezing, and pleuritic chest pain, Abdomen/GI: Negative for abdominal pain, nausea, vomiting, diarrhea, and constipation, Skin: Negative for injury, rash, and discoloration, Neuro: Negative for headache, weakness, numbness, tingling, and seizure, Psych: Positive for suicide gesture, suicidal ideation, Exam: 00:19 Constitutional: This is a well developed, well nourished patient who is awake, alert, rt and in no acute distress. Head/Face: Normocephalic, atraumatic. Chest/axilla: Normal chest wall appearance and motion. Nontender with no deformity. No lesions are appreciated. Cardiovascular: Regular rate and rhythm with a normal S1 and S2. No gallops, murmurs, or rubs. Normal PMI, no JVD. No pulse deficits. Respiratory: Lungs have equal breath sounds bilaterally, clear to auscultation and percussion. No rales, rhonchi or wheezes noted. No increased work of breathing, no retractions or nasal flaring. Abdomen/GI: Soft, non-tender, with normal bowel sounds. No distension or tympany. No guarding or rebound. No evidence of tenderness throughout. Skin: Warm, dry with normal turgor. Normal color with no rashes, no lesions, and no evidence of cellulitis. MS/ Extremity: Pulses equal, no cyanosis. Neurovascular intact. Full, normal range of motion. 00:19 ECG was reviewed by the Attending Physician. 00:19 Psych: Mood depressed, affect congruent, reported suicidal ideation. Vital Signs: 11/23 23:20 BP 141 / 73; Pulse 100; Resp 18; Temp 97.2; Pulse Ox 92% ; Weight 90.72 kg; Height 5 br2 ft. 9 in. ; Pain 10/10; 11/24 01:32 BP 138 / 71; Pulse 94; Resp 18; Temp 97.3; Pulse Ox 94% ; Pain 0/10; cp4 11/23 23:20 Body Mass Index 29.53 (90.72 kg, 175.26 cm) br2 11/23 23:20 Pain Scale: Adult br2 11/24 01:32 Pain Scale: Adult cp4 MDM: 11/23 23:20 Medical Screening Exam initiated rt 11/24 03:01 Differential diagnosis: Suicidal ideation. Data reviewed: vital signs, nurses notes, rt lab test result(s), EKG. Care significantly affected by the following chronic conditions: MDD. Counseling: I had a detailed discussion with the patient and/or guardian regarding the historical points, exam findings, and any diagnostic results supporting the discharge/admit diagnosis, lab results, the need to transfer to another facility. 11/23 23:20 Order name: Acetaminophen; Complete Time: 00:06 rt 11/23 23:20 Order name: Basic Metabolic Panel; Complete Time: 00:06 rt 11/23 23:20 Order name: CBC with Diff; Complete Time: 00:06 rt 11/23 23:20 Order name: ETOH Level; Complete Time: 00:06 rt 11/23 23:20 Order name: Hepatic Function; Complete Time: 00:06 rt 11/23 23:20 Order name: PT-INR; Complete Time: 23:50 rt 02 23:20 Order name: Ptt, Activated; Complete Time: 23:50 rt 11/23 23:20 Order name: Salicylate; Complete Time: 23:50 rt 11/23 23:20 Order name: Urinalysis w/ reflexes; Complete Time: 23:50 rt 02 23:20 Order name: Urine Drug Screen; Complete Time: 23:50 rt 11/23 23:20 Order name: EKG; Complete Time: 23:21 rt 02 23:20 Order name: EKG - Nurse/Tech; Complete Time: 23:28 rt 02 23:20 Order name: IV Saline Lock; Complete Time: 23:28 rt 11/23 23:20 Order name: Labs collected and sent; Complete Time: 23:28 rt 02 23:20 Order name: Suicide Screening ([place]); Complete Time: 23:29 rt EC:19 Rate is 99 beats/min. Rhythm is regular, Normal Sinus Rhythm with No ectopy. QRS [place] rt is Normal. AL interval is normal. QRS interval is normal. QT interval is normal. No Q waves. T waves are Normal. No ST changes noted. Administered Medications: 00:05 Drug: Ketorolac IM 15 mg IM once Route: IM; Site: right deltoid; 4 02:00 Follow up: Response: No adverse reaction cp4 00:52 Drug: NS 0.9% IV 1000 ml IV at 1000 ml once; to be given as a bolus over 60 minutes cp4 Route: IV; Rate: 1000 ml; Site: right hand; 01:59 Follow up: IV Status: Completed infusion cp4 00:53 Drug: Insulin Regular Human Sub-Q 10 units Sub-Q once {Co-Signature: br2 (arnold Mock RN).} Route: Sub-Q; Site: left upper arm; 01:59 Follow up: Response: No adverse reaction cp4 Disposition Summary: 11/24/24 01:44 Transfer Ordered Notes: Transfer Location: [facility] rt Reason: Higher level of care rt Condition: Stable rt Problem: an acute exacerbation rt Symptoms: are unchanged rt Accepting Physician: (11/24/24 01:58) cp4 Diagnosis - Suicidal ideations rt Discharge Instructions: - Discharge Summary Sheet kmf Forms: - Medication Reconciliation Form kmf - SBAR form kmf Signatures: Dispatcher [employer] Bobby Kirk MD MD rt Jazmin Adam cp4 Angie Mock RN RN br2 Sisters, Angie RN br2 Corrections: (The following items were deleted from the chart) 11/23 23:21 23:21 ACETAMINOPHEN+C.LAB.BRZ ordered. EDMS EDMS 23:21 23:21 BASIC METABOLIC PANEL+C.LAB.BRZ ordered. EDMS EDMS 23:21 23:21 CBC+H.LAB.BRZ ordered. EDMS EDMS 23:21 23:21 ETHANOL+C.LAB.BRZ ordered. EDMS EDMS 23:21 23:21 HEPATIC FUNCTION+C.LAB.BRZ ordered. EDMS EDMS 23:21 23:21 PROTIME (+INR)+COAG.LAB.BRZ ordered. EDMS EDMS 23:21 23:21 PTT, ACTIVATED+COAG.LAB.BRZ ordered. EDMS EDMS 23:21 23:21 SALICYLATE+C.LAB.BRZ ordered. EDMS EDMS 23:21 23:21 Urinalysis+U.LAB.BRZ ordered. EDMS EDMS 23:21 23:21 URINE DRUG SCREEN+UC.LAB.BRZ ordered. EDMS EDMS 11/24 01:58 01:44 rt cp4
[2024-11-24 02:05] VITALS: BP 138/71; TEMP 97.3; O2SAT 94
--- NOTE | 2024-11-24 13:39 | EKG ---
Test Date: 2024-11-23 Test Time: 23:25:51 Product Coordinator: FRANCESCO MEASUREMENT RESULTS: Intervals: Rate: 99 AR: 150 QRSD: 80 QT: 340 QTc: 436 [place]: P: 46 AR: 150 QRS: 38 T: 58 INTERPRETIVE STATEMENTS: Normal sinus rhythm Normal ECG Compared to ECG 10/10/2024 08:03:38 Sinus bradycardia no longer present Electronically Signed On 11-24-24 13:37:41 LEAD NET SOFTWARE DEVELOPER by Tremayne An
== END 2024-11-24 01:58 ==
LOC: ER 23:16
DX: R45.851 Suicidal ideations (principal); F17.210 Nicotine dependence, cigarettes, uncomplicated
CPT/HCPCS: 93005; 85025; 81001; 80048; 36415; 85610; 80076; 85730; 80307; 96360; 96372; 99285; 80143; 80179; 82077; J7030

== ENCOUNTER 2024-12-28 21:03 | Emergency (ER) | payer OTHER ==
[2024-12-28] MEDS ORDERED: MECLIZINE HCL 12.5 MG TAB ONE (21:18)
[2024-12-28] MEDS ORDERED: INSULIN REGULAR (HUMAN) 100 UNIT/ML ONE ×2 (21:19→23:36)
[2024-12-28] MEDS ORDERED: NA CHLORIDE 0.9% 1,000 ML ONE (21:19)
[2024-12-28 21:31] LABS: Absolute Basophils 0.1 K/uL (0-0.5); Absolute Eosinophils 0.2 K/uL (0-0.5); Absolute Lymphocytes (CBC) 2.3 K/uL (0.7-4.9); Absolute Monocytes 0.5 K/uL (0.1-1.3); Basophils % 0.9 % (0-1.3); Eosinophils % 3.4 % (0-4.4); Hematocrit 39.1 % (39.6-49.0); Hemoglobin 13.2 g/dL (13.6-17.9); Lymphocytes % 32.6 % (15.3-44.8); MCH 31.7 pg (27.0-35.0); MCHC 33.7 g/dL (32.0-36.0); MCV 94.1 fL (80-100); MPV 8.9 fL (7.6-11.3); Monocytes % 6.6 % (3.3-12.3); Neutrophils % 56.5 % (41.7-73.7); Nucleated Red Blood Cells % 0.2 % (0-0); Platelets 149 thou/uL (152-406); RBC Red Blood Cell Count 4.15 M/uL (4.33-5.43); Red Cell Distribution Width 12.8 % (12.1-15.2)
[2024-12-28 21:44] LABS: Albumin/Globulin Ratio 0.8 (1.1-1.8); Anion Gap 10.9 mEq/L (5.0-15.0); Bilirubin Total 0.2 mg/dL (0.2-1.0); Globulin 3.6 g/dL (2.3-3.5); Potassium 3.9 mEq/L (3.5-5.1); Protein, Total 6.6 g/dL (6.4-8.2)
--- NOTE | 2024-12-29 00:59 | ER ---
Nurse's Notes [facility] Name: Chi Kelley Age: 54 yrs Sex: Male : 1970 Arrival Date: 12/28/2024 Time: 21:03 Bed 7 Private MD: Diagnosis: Type 2 diabetes mellitus with hyperglycemia;Hyperglycemia, unspecified Presentation: 12/28 21:09 Chief complaint: Patient states: I have been dizzy all day and my blood sugar is high. bm8 Coronavirus screen: At this time, the client does not indicate any symptoms associated with coronavirus-19. Ebola Screen: Patient negative for fever greater than or equal to 101.5 degrees Fahrenheit, and additional compatible Ebola Virus Disease symptoms Patient denies exposure to infectious person. Patient denies travel to an Ebola-affected area in the 21 days before illness onset. No symptoms or risks identified at this time. Initial Sepsis Screen: Does the patient meet any 2 criteria? No. Patient's initial sepsis screen is negative. Does the patient have a suspected source of infection? No. Patient's initial sepsis screen is negative. Risk Assessment: Do you want to hurt yourself or someone else? Patient reports no desire to harm self or others. Onset of symptoms was December 28, 2024 at 09:00. Care prior to arrival: Medication(s) given: Normal saline infusion, 1000 mL, IV initiated. 18 GA, in the right antecubital area, Glucose check: 517. 21:09 Method Of Arrival: EMS: [facility] bm8 21:09 Acuity: DORIAN 3 bm8 Triage Assessment: 21:11 General: Appears in no apparent distress. comfortable, Behavior is calm, cooperative, bm8 appropriate for age. Pain: Denies pain. EENT: No deficits noted. No signs and/or symptoms were reported regarding the EENT system. Neuro: Level of Consciousness is awake, alert, obeys commands, Oriented to person, place, time, situation, Appropriate for age Reports dizziness. Cardiovascular: Denies chest pain, Heart tones S1 S2 present Capillary refill < 3 seconds in bilateral fingers. Respiratory: No deficits noted. Airway is patent Respiratory effort is even, unlabored, Respiratory pattern is regular, symmetrical. GI: reports high blood sugar. : No deficits noted. Derm: No deficits noted. Musculoskeletal: No deficits noted. Historical: - Allergies: 21:11 Hydrocodone-Acetaminophen; bm8 - Home Meds: 21:11 Unable to obtain [Active]; bm8 - PMHx: 21:11 Unable to Obtain; bm8 - PSHx: 21:11 Unable to Obtain; bm8 - Immunization history:: Adult Immunizations up to date. - Infectious Disease History:: Denies. - Social history:: Smoking status: Patient/guardian denies using tobacco. Screenin:12 [facility] ED Fall Risk Assessment (Adult) History of falling in the last 3 months, bm8 including since admission No falls in past 3 months (0 pts) Confusion or Disorientation No (0 pts) Intoxicated or Sedated No (0 pts) Impaired Gait Yes (1 pt) Mobility Assist Device Used No (0 pt) Altered Elimination No (0 pt) Score/Fall Risk Level 0 - 2 = Low Risk Oriented to surroundings, Maintained a safe environment, Educated pt \T\ family on fall prevention, incl call for assistance when getting out of bed, Assessed \T\ reinforced patient's understanding of fall precautions, Hourly rounding (assess needs \T\ fall precautionary measures) done, Used ambulatory aids as needed (educated on \T\ assisted with), Used gait belt as appropriate. Abuse screen: Denies threats or abuse. Nutritional screening: No deficits noted. Tuberculosis screening: No symptoms or risk factors identified. Assessment: 21:12 Reassessment: see triage assessment. bm8 22:04 Reassessment: Patient appears in no apparent distress at this time. Patient and/or bm8 family updated on plan of care and expected duration. Pain level reassessed. Patient is alert, oriented x 3, equal unlabored respirations, skin warm/dry/pink. Patient denies pain at this time. Patient states feeling better. Patient states symptoms have improved. Pain: Denies pain. Neuro: Denies dizziness. 22:04 Reassessment: POC BS 393. bm8 23:26 Reassessment: Patient appears in no apparent distress at this time. Patient and/or bm8 family updated on plan of care and expected duration. Pain level reassessed. Patient is alert, oriented x 3, equal unlabored respirations, skin warm/dry/pink. POC BS 420, provider informed of elevated levels Patient denies pain at this time. Patient states feeling better. Patient states symptoms have improved. 12/29 00:52 Reassessment: No changes from previously documented assessment. bm8 Vital Signs: 12/28 21:09 BP 138 / 79; Pulse 89; Resp 18; Temp 98.1; Pulse Ox 96% ; Weight 95.25 kg; Height 5 ft. bm8 9 in. ; Pain 0/10; 22:04 BP 131 / 77; Pulse 81; Resp 17; Temp 98.3; Pulse Ox 99% ; Pain 0/10; bm8 23:26 BP 129 / 85; Pulse 81; Resp 17; Temp 98.3; Pulse Ox 96% ; Pain 0/10; bm8 12/29 00:52 BP 125 / 73; Pulse 84; Resp 16; Temp 98.3; Pulse Ox 95% ; Pain 0/10; bm8 12/28 21:09 Body Mass Index 31.01 (95.25 kg, 175.26 cm) bm8 12/28 21:09 Pain Scale: Adult bm8 22:04 Pain Scale: Adult bm8 23:26 Pain Scale: Adult bm8 12/29 00:52 Pain Scale: Adult bm8 William Coma Score: 12/28 21:12 Eye Response: spontaneous(4). Motor Response: obeys commands(6). Verbal Response: bm8 oriented(5). Total: 15. 22:04 Eye Response: spontaneous(4). Motor Response: obeys commands(6). Verbal Response: bm8 oriented(5). Total: 15. 23:26 Eye Response: spontaneous(4). Motor Response: obeys commands(6). Verbal Response: bm8 oriented(5). Total: 15. 12/29 00:52 Eye Response: spontaneous(4). Motor Response: obeys commands(6). Verbal Response: bm8 oriented(5). Total: 15. 06:48 Eye Response: spontaneous(4). Motor Response: obeys commands(6). Verbal Response: sp4 oriented(5). Total: 15. ED Course: 12/28 21:05 Patient arrived in ED. rv1 21:08 Jerald Huang, RN is Primary Nurse. bm8 21:08 Jarret Arndt MD is Attending Physician. sp4 21:11 Triage completed. bm8 21:11 Arm band placed on right wrist. bm8 21:12 Patient has correct armband on for positive identification. Bed in low position. Call bm8 light in reach. Side rails up X 1. Side rails up X2. Adult w/ patient. Client placed on continuous cardiac and pulse oximetry monitoring. NIBP monitoring applied. Pulse ox on. NIBP on. Door closed. Noise minimized. Warm blanket given. Pillow given. Verbal reassurance given. Head of bed elevated. 21:12 No provider procedures requiring assistance completed. Initial lab(s) drawn, by me, bm8 sent to lab. Maintain EMS IV. Dressing intact. Good blood return noted. Site clean \T\ dry. Gauge \T\ site: 18 g rac. Flushed with 10 mL NS. 12/29 01:05 Provided Education on: post er care, follow up with pcp. bm8 01:05 IV discontinued, intact, bleeding controlled, No redness/swelling at site. Pressure bm8 dressing applied. Administered Medications: 12/28 21:21 Drug: Meclizine PO 25 mg PO once Route: PO; bm8 22:05 Follow up: Response: No adverse reaction bm8 21:22 Drug: NS 0.9% IV 1000 ml IV at 1 bolus Per protocol; to be given as a bolus over 60 bm8 minutes Route: IV; Rate: 1 bolus; Site: right antecubital; 22:06 Follow up: Response: No adverse reaction; IV Status: Completed infusion bm8 21:22 Drug: Insulin Regular Human IVP 10 units IVP once {Co-Signature: rg5 (Tony Buenrostro RN).} Route: IVP; Site: right antecubital; 22:06 Follow up: Response: No adverse reaction bm8 23:40 Drug: Insulin Regular Human IVP 8 units IVP once {Co-Signature: rg5 (Tony Buenrostro RN).} Route: IVP; Site: right antecubital; 12/29 01:07 Follow up: Response: No adverse reaction bm8 Medication: 12/28 21:12 VIS not applicable for this client. bm8 Outcome: 12/29 00:59 Discharge ordered by MD. nesbitt 01:05 Discharged to home ambulatory, bm8 01:05 Condition: stable 01:05 Discharge instructions given to patient, family, Instructed on discharge instructions, follow up and referral plans. no drinking with medication, no driving heavy equipment, medication usage, safety practices, Demonstrated understanding of instructions, follow-up care, medications, 01:06 Patient left the ED. bm8 Signatures: Polina Gregg rv1 Jarret Arndt MD MD sp4 Jerald Huang RN RN bm8 Tony Buenrostro RN rg5
--- NOTE | 2024-12-29 00:59 | EDPHYS ---
Physician Documentation [facility] Name: Chi Kelley Age: 54 yrs Sex: Male : 1970 Arrival Date: 12/28/2024 Time: 21:03 Bed 7 Private MD: ED Physician Jarret Arndt HPI: 12/28 21:08 This 54 yrs old Male presents to ER via Unassigned with complaints of High sp4 Blood Sugar, Dizziness. 21:08 54-year-old male who presents with complaint of acute dizziness and elevated blood sp4 sugar at 517.. Historical: - Allergies: 21:11 Hydrocodone-Acetaminophen; bm8 - Home Meds: 21:11 Unable to obtain [Active]; bm8 - PMHx: 21:11 Unable to Obtain; bm8 - PSHx: 21:11 Unable to Obtain; bm8 - Immunization history:: Adult Immunizations up to date. - Infectious Disease History:: Denies. - Social history:: Smoking status: Patient/guardian denies using tobacco. ROS: 12/29 06:50 Constitutional: Negative for fever, chills, and weight loss, positive dizziness sp4 positive elevated blood sugar All other systems are negative, Exam: 06:48 Constitutional: This is a well developed, well nourished patient who is awake, alert, sp4 and in no acute distress. Head/Face: Normocephalic, atraumatic. Eyes: Pupils equal round and reactive to light, extra-ocular motions intact. Lids and lashes normal. Conjunctiva and sclera are not injected. Cornea within normal limits. Periorbital areas with no swelling, redness, or edema. ENT: Nares patent. No nasal discharge, no septal abnormalities noted. Tympanic membranes are normal and external auditory canals are clear. Oropharynx with no redness, swelling, or masses, exudates, or evidence of obstruction, uvula midline. Mucous membranes moist. Neck: Trachea midline, no thyromegaly or masses palpated, and no cervical lymphadenopathy. Supple, full range of motion without nuchal rigidity, or vertebral point tenderness. Chest/axilla: Normal chest wall appearance and motion. Nontender with no deformity. No lesions are appreciated. Cardiovascular: Regular rate and rhythm with a normal S1 and S2. No gallops, murmurs, or rubs. Normal PMI, no JVD. No pulse deficits. Respiratory: Lungs have equal breath sounds bilaterally, clear to auscultation and percussion. No rales, rhonchi or wheezes noted. No increased work of breathing, no retractions or nasal flaring. Abdomen/GI: Soft, with normal bowel sounds. No distension or tympany. No guarding or rebound. No evidence of tenderness throughout. Back: No spinal tenderness. No costovertebral tenderness. Skin: Warm, dry with normal turgor. Normal color with no rashes, no lesions, and no evidence of cellulitis. MS/ Extremity: Pulses equal, no cyanosis. Neurovascular intact. Full, normal range of motion. Neuro: Awake and alert, GCS 15, oriented to person, place, time, and situation. Cranial nerves II-XII grossly intact. Motor strength 5/5 in all extremities. Sensory grossly intact. Psych: Awake, alert, with orientation to person, place and time. Behavior, mood, and affect are within normal limits 06:48 ECG was reviewed by the Attending Physician. EKG 2106 normal sinus rhythm rate 85. Vital Signs: 12/28 21:09 BP 138 / 79; Pulse 89; Resp 18; Temp 98.1; Pulse Ox 96% ; Weight 95.25 kg; Height 5 ft. bm8 9 in. ; Pain 0/10; 22:04 BP 131 / 77; Pulse 81; Resp 17; Temp 98.3; Pulse Ox 99% ; Pain 0/10; bm8 23:26 BP 129 / 85; Pulse 81; Resp 17; Temp 98.3; Pulse Ox 96% ; Pain 0/10; bm8 12/29 00:52 BP 125 / 73; Pulse 84; Resp 16; Temp 98.3; Pulse Ox 95% ; Pain 0/10; bm8 12/28 21:09 Body Mass Index 31.01 (95.25 kg, 175.26 cm) bm8 12/28 21:09 Pain Scale: Adult bm8 22:04 Pain Scale: Adult bm8 23:26 Pain Scale: Adult bm8 12/29 00:52 Pain Scale: Adult bm8 Ducor Coma Score: 12/28 21:12 Eye Response: spontaneous(4). Motor Response: obeys commands(6). Verbal Response: bm8 oriented(5). Total: 15. 22:04 Eye Response: spontaneous(4). Motor Response: obeys commands(6). Verbal Response: bm8 oriented(5). Total: 15. 23:26 Eye Response: spontaneous(4). Motor Response: obeys commands(6). Verbal Response: bm8 oriented(5). Total: 15. 12/29 00:52 Eye Response: spontaneous(4). Motor Response: obeys commands(6). Verbal Response: bm8 oriented(5). Total: 15. 06:48 Eye Response: spontaneous(4). Motor Response: obeys commands(6). Verbal Response: sp4 oriented(5). Total: 15. : 12/28 21:06 Differential diagnosis: Winchester's syndrome, diabetes insipidus, DKA, hyperglycemia, sp4 hyperthyroidism. Data reviewed: vital signs, nurses notes, lab test result(s), EKG. Consideration of Admission/Observation Escalation of care including admission/observation considered. ED course: Blood sugar has improved after IV hydration and insulin. Patient stable for discharge home.. 23:12 Medical Screening Exam initiated sp4 12/28 21:10 Order name: CBC with Diff; Complete Time: 22:47 sp4 12/28 21:10 Order name: CMP; Complete Time: 22:47 sp4 12/28 21:10 Order name: Lipase; Complete Time: 22:47 sp4 12/28 22:17 Order name: Glucose, Ancillary Testing; Complete Time: 22:47 EDMS 12/28 23:34 Order name: Glucose, Ancillary Testing; Complete Time: 00:16 EDMS 12/29 01:03 Order name: Glucose, Ancillary Testing EDMS 12/28 21:10 Order name: IV Saline Lock; Complete Time: 21:14 sp4 12/28 21:10 Order name: Labs collected and sent; Complete Time: 21:14 sp4 EC:06 Rate is 85 beats/min. Rhythm is regular, Normal Sinus Rhythm. QRS [place] is Normal. FL sp4 interval is normal. QRS interval is normal. QT interval is normal. No Q waves. T waves are Normal. No ST changes noted. Clinical impression: Normal ECG. Interpreted by me. Reviewed by me. Administered Medications: 21:21 Drug: Meclizine PO 25 mg PO once Route: PO; bm8 22:05 Follow up: Response: No adverse reaction bm8 21:22 Drug: NS 0.9% IV 1000 ml IV at 1 bolus Per protocol; to be given as a bolus over 60 bm8 minutes Route: IV; Rate: 1 bolus; Site: right antecubital; 22:06 Follow up: Response: No adverse reaction; IV Status: Completed infusion bm8 21:22 Drug: Insulin Regular Human IVP 10 units IVP once {Co-Signature: rg5 (Tony Buenrostro bm8 RN).} Route: IVP; Site: right antecubital; 22:06 Follow up: Response: No adverse reaction bm8 23:40 Drug: Insulin Regular Human IVP 8 units IVP once {Co-Signature: rg5 (Tony Buenrostro bm8 RN).} Route: IVP; Site: right antecubital; 12/29 01:07 Follow up: Response: No adverse reaction bm8 Disposition Summary: 12/29/24 00:59 Discharge Ordered Notes: Location: Home sp4 Problem: new sp4 Symptoms: have improved sp4 Condition: Stable sp4 Diagnosis - Type 2 diabetes mellitus with hyperglycemia sp4 - Hyperglycemia, unspecified sp4 Followup: sp4 - With: Private Physician - When: 7 - 10 days - Reason: Recheck today's complaints Discharge Instructions: - Discharge Summary Sheet sp4 - Diabetes Mellitus and Nutrition, Adult sp4 Forms: - Patient Portal Instructions sp4 Signatures: Dispatcher [employer] Jarret Muñiz MD MD sp4 Jerald Huang RN RN bm8 Tony Buenrostro RN rg5
[2024-12-29 01:12] VITALS: TEMP 98.3
[2024-12-29 01:15] VITALS: BP 125/73; O2SAT 95
== END 2024-12-29 01:06 | disposition home or self-care (01) ==
LOC: ER 21:03
DX: E11.65 Type 2 diabetes mellitus with hyperglycemia (principal)
CPT/HCPCS: 96361; 85025; 36415; 82947 ×3; 83690; 80053; 96374; 99284; J8597; J1815 ×2; J7030; 93005

== ENCOUNTER 2025-01-13 20:06 | Emergency (ER) | payer OTHER ==
[2025-01-13 22:20] LABS: Absolute Basophils 0.1 K/uL (0-0.5); Absolute Eosinophils 0.3 K/uL (0-0.5); Absolute Lymphocytes (CBC) 3.7 K/uL (0.7-4.9); Absolute Monocytes 0.6 K/uL (0.1-1.3); Basophils % 0.9 % (0-1.3); Eosinophils % 2.7 % (0-4.4); Hematocrit 41.5 % (39.6-49.0); Hemoglobin 14.6 g/dL (13.6-17.9); Lymphocytes % 38.2 % (15.3-44.8); MCH 32.1 pg (27.0-35.0); MCHC 35.1 g/dL (32.0-36.0); MCV 91.5 fL (80-100); MPV 9.5 fL (7.6-11.3); Monocytes % 5.9 % (3.3-12.3); Neutrophils % 52.3 % (41.7-73.7); Nucleated Red Blood Cells % 0.2 % (0-0); Platelets 168 thou/uL (152-406); RBC Red Blood Cell Count 4.53 M/uL (4.33-5.43); Red Cell Distribution Width 13.2 % (12.1-15.2)
[2025-01-13 22:22] LABS: Specific Gravity > 1.030 (1.005-1.030); Urine Bilirubin NEGATIVE (Negative); Urine Blood Negative (Negative); Urine Clarity Clear (Clear); Urine Color Light-Yellow (Yellow); Urine Glucose 4+ (Over) (Negative); Urine Ketones NEGATIVE (Negative); Urine Microscopic Reflex YN NO UMIC; Urine Nitrite NEGATIVE (Negative); Urine Protein NEGATIVE (Negative); Urine Urobilinogen Normal (Normal)
[2025-01-13] MEDS ORDERED: NA CHLORIDE 0.9% 1,000 ML ONE (22:33)
[2025-01-13] MEDS ORDERED: INSULIN REGULAR (HUMAN) 100 UNIT/ML ONE (22:33)
[2025-01-13 22:36] LABS: Albumin 3.5 g/dL (3.4-5.0); Albumin/Globulin Ratio 0.9 (1.1-1.8); Anion Gap 8.7 mEq/L (5.0-15.0); Bilirubin Total 0.3 mg/dL (0.2-1.0); Globulin 4.1 g/dL (2.3-3.5); Potassium 3.7 mEq/L (3.5-5.1); Protein, Total 7.6 g/dL (6.4-8.2)
[2025-01-13] MEDS ORDERED: CODEINE 30MG/APAP 300MG TAB ONE (22:57)
[2025-01-13] MEDS ORDERED: KETOROLAC 30 MG/ML INJ ONE (22:57)
--- NOTE | 2025-01-13 23:52 | EDPHYS ---
Physician Documentation [facility] Name: Chi Kelley Age: 54 yrs Sex: Male : 1970 Arrival Date: 01/13/2025 Time: 20:06 Bed 20 Private MD: ED Physician Ian Rhoades HPI: 01/13 21:10 This 54 yrs old Male presents to ER via Ambulatory with complaints of High Blood Sugar. cp 21:10 The patient or guardian reports hyperglycemia, that was potentially precipitated by no cp particular event. Onset: The symptoms/episode began/occurred today. Associated signs and symptoms: Pertinent positives: right lower tooth pain. Current symptoms: In the emergency department the patient's symptoms right lower tooth pain. Historical: - Allergies: 20:54 Hydrocodone-Acetaminophen; cm10 - PMHx: 20:54 Diabetes mellitus; THYROID DISEASE; Glaucoma; Depressive disorder; GERD; cm10 - Immunization history:: Adult Immunizations up to date. - Infectious Disease History:: Denies. - Social history:: Smoking status: Patient reports the use of cigarette tobacco products, smokes one-half pack cigarettes per day. ROS: 21:15 Constitutional: Negative for body aches, chills, fever, poor PO intake, cp 21:15 Eyes: Negative for injury, pain, redness, and discharge, cp 21:15 ENT: Positive for dental pain, Negative for drainage from ear(s), ear pain, sore throat, difficulty swallowing, difficulty handling secretions, 21:15 Cardiovascular: Negative for chest pain, palpitations, 21:15 Respiratory: Negative for cough, shortness of breath, wheezing, 21:15 Abdomen/GI: Negative for abdominal pain, vomiting, diarrhea, constipation, 21:15 Neuro: Negative for altered mental status, dizziness, headache, syncope, weakness, 21:15 All other systems are negative, Exam: 21:20 Constitutional: The patient appears in no acute distress, alert, awake, cp non-diaphoretic, non-toxic, well developed, well nourished, 21:20 Head/Face: Normocephalic, atraumatic. cp 21:20 Eyes: Periorbital structures: appear normal, Conjunctiva: normal, no exudate, no injection, Sclera: no appreciated abnormality, Lids and lashes: appear normal, bilaterally, 21:20 ENT: External ear(s): are unremarkable, Nose: is normal, Mouth: Lips: moist, Oral mucosa: pink and intact, moist, Gums: mild redness and swelling right lower gums, Tongue: is normal, abscess, is not appreciated, Posterior pharynx: Airway: no evidence of obstruction, patent, Dental exam: dental caries, that is severe, diffusely, missing teeth, diffusely, pain, that is mild, specifically in the lower right first molar (#30), Voice: is normal, 21:20 Neck: ROM/movement: is normal, is supple, without pain, no range of motions limitations, Lymph nodes: no appreciated lymphadenopathy, 21:20 Chest/axilla: Inspection: normal, 21:20 Cardiovascular: Rate: normal, 21:20 Respiratory: the patient does not display signs of respiratory distress, Respirations: normal, no use of accessory muscles, no retractions, labored breathing, is not present, Breath sounds: are clear throughout, no decreased breath sounds, 21:20 Abdomen/GI: Inspection: abdomen appears normal, 21:20 Neuro: Orientation: to person, place \T\ time. Mentation: is normal, Motor: moves all fours, strength is normal, Sensation: no obvious gross deficits, Vital Signs: 20:53 BP 112 / 79; Pulse 93; Resp 18; Temp 98(O); Pulse Ox 97% ; Weight 97.52 kg; Height 5 cm10 ft. 9 in. ; Pain 0/10; 21:00 BP 124 / 75; Pulse 83; Resp 18; Pulse Ox 96% on R/A; Pain 0/10; rg5 23:00 BP 119 / 75; Pulse 82; Resp 18; Pulse Ox 99% on R/A; Pain 0/10; rg5 20:53 Body Mass Index 31.75 (97.52 kg, 175.26 cm) cm10 20:53 Pain Scale: Adult cm10 21:00 Pain Scale: Adult rg5 23:00 Pain Scale: Adult rg5 MDM: 21:02 Medical Screening Exam initiated paige 23:50 Data reviewed: vital signs, nurses notes, lab test result(s), and as a result, I will cp discharge patient. 23:50 Differential diagnosis: DKA, hyperglycemia, sepsis, dental abscess. I considered the cp following discharge prescriptions or medication management in the emergency department Medications were administered in the Emergency Department. See MAR. Counseling: I had a detailed discussion with the patient and/or guardian regarding the historical points, exam findings, and any diagnostic results supporting the discharge/admit diagnosis, lab results, the need for outpatient follow up, for definitive care, a dentist, a family practitioner, to return to the emergency department if symptoms worsen or persist or if there are any questions or concerns that arise at home. Response to treatment: the patient's symptoms have mildly improved after treatment, and as a result, I will discharge patient. 01/13 21:04 Order name: Glucose, Ancillary Testing; Complete Time: 21:14 EDMS 01/13 21:14 Interpretation: Reviewed. cp 01/13 21:27 Order name: CBC with Diff; Complete Time: 22:44 cp 01/13 21:27 Order name: CMP; Complete Time: 22:44 cp 01/13 21:27 Order name: Lipase; Complete Time: 22:44 cp 01/13 21:27 Order name: Urinalysis w/ reflexes; Complete Time: 22:44 cp 01/13 21:39 Order name: Glucose, Ancillary Testing; Complete Time: 22:44 EDMS 01/14 00:02 Order name: Glucose, Ancillary Testing EDMS 01/13 20:20 Order name: Accucheck Blood Glucose; Complete Time: 22:04 cp 01/13 21:27 Order name: IV Saline Lock; Complete Time: 22:15 cp 01/13 21:27 Order name: Labs collected and sent; Complete Time: 22:15 cp 01/13 23:51 Order name: Accucheck Blood Glucose; Complete Time: 23:59 cp Administered Medications: 22:36 Drug: Insulin Regular Human IVP 10 units IVP once {Co-Signature: le1 (Swedish, rgDayna Poole RN).} Route: IVP; Site: right antecubital; 22:52 Follow up: Response: No adverse reaction rg5 22:37 Drug: NS 0.9% IV 1000 ml IV at 1000 ml once; to be given as a bolus over 60 minutes rg5 Route: IV; Rate: 1000 ml; Site: right antecubital; 23:45 Follow up: IV Status: Completed infusion; IV Intake: 1000ml rg5 23:00 Drug: Acetaminophen-Codeine PO (300 mg-30 mg) 2 tabs PO once; RASS on ADMIN: Combtv4, rg5 Very Agttd3, Agttd2, Rstlss1, AlertClm0, Drwsy-1, Lt Sdtn-2, Mod Sdtn-3, Dp Sdtn-4, UnArsble-5 Route: PO; 01/14 00:00 Follow up: Response: No adverse reaction; Pain is decreased rg5 01/13 23:00 Drug: Ketorolac IVP 15 mg IVP once Route: IVP; Site: right antecubital; rg5 23:59 Follow up: Response: No adverse reaction; Pain is decreased rg5 23:00 Drug: Clindamycin PO 600 mg PO once Route: PO; rg5 23:59 Follow up: Response: No adverse reaction rg5 Point of Care Testing: Blood Glucose: 20:53 Blood Glucose: 401 mg/dL; cm10 Ranges: Critical Glucose Levels:Adult <50 mg/dl or >400 mg/dl <40 mg/dl or >180 mg/dl Disposition Summary: 01/13/25 23:51 Discharge Ordered Notes: Location: Home cp Problem: an ongoing problem cp Symptoms: have improved cp Condition: Stable cp Diagnosis - Disorder of teeth and supporting structures, unspecified cp - Diabetes mellitus due to underlying condition with hyperglycemia cp Followup: cp - With: Private Physician - When: 2 - 3 days - Reason: Recheck today's complaints Discharge Instructions: - Discharge Summary Sheet cp - Dental Pain cp - Type 2 Diabetes Mellitus, Diagnosis, Adult cp - Hyperglycemia cp - Daily Diabetes Mellitus Record cp - Blood Glucose Monitoring, Adult cp - Diabetes Mellitus and Nutrition, Adult cp Forms: - Medication Reconciliation Form cp - Antibiotic Education cp - Prescription Opioid Use cp - Patient Portal Instructions cp - Leadership Thank You Letter cp Prescriptions: - Anaprox DS 550 mg Oral Tablet - take 1 tablet ORAL route every 12 hours As needed; 20 tablet; Refills: 0, cp Product Selection Permitted - Clindamycin HCl 300 mg Oral Capsule - take 1 capsule ORAL route every 6 hours for 10 days; 40 capsule; Refills: 0, cp Product Selection Permitted Addendum: 01/16/2025 15:34 Co-signature as Attending Physician, Ian Rhoades MD I agree with the assessment and c nichole plan of care. Signatures: Dispatcher [employer] Ian Rogers MD MD cha Page, Corey, PA PA cp Martinez, Clarissa, RN RN cm10 Tony Buenrostro RN RN rg5 Virgilio Houston RN le1 Corrections: (The following items were deleted from the chart) 01/13 21: 21:28 CBC+H.LAB.BRZ ordered. EDMS EDMS 21:28 COMPREHENSIVE METABOLIC PANEL+C.LAB.BRZ ordered. EDMS EDMS 21:28 LIPASE+C.LAB.BRZ ordered. EDMS EDMS 21:28 Urinalysis+U.LAB.BRZ ordered. EDMS EDMS
--- NOTE | 2025-01-13 23:52 | ER ---
Nurse's Notes [facility] Name: Chi Kelley Age: 54 yrs Sex: Male : 1970 Arrival Date: 01/13/2025 Time: 20:06 Bed 20 Private MD: Diagnosis: Disorder of teeth and supporting structures, unspecified;Diabetes mellitus due to underlying condition with hyperglycemia Presentation: 01/13 20:55 Chief complaint: Patient states: HERE TO HAVE BLOOD SUGAR CHECKED BECAUSE HE DOES NOT cm10 HAVE A GLUCOMETER AND HIS BLOOD SUGARS HAVE BEEN RUNNING HIGH. Coronavirus screen: Client denies travel out of the [place] in the last 14 days. Ebola Screen: Patient denies travel to an Ebola-affected area in the 21 days before illness onset. Initial Sepsis Screen: Does the patient meet any 2 criteria? HR > 90 bpm. No. Patient's initial sepsis screen is negative. Does the patient have a suspected source of infection? No. Patient's initial sepsis screen is negative. Risk Assessment: Do you want to hurt yourself or someone else? Patient reports no desire to harm self or others. Onset of symptoms was January 13, 2025. 20:55 Method Of Arrival: Ambulatory cm10 20:55 Acuity: DORIAN 3 cm10 Triage Assessment: 20:54 General: Appears in no apparent distress. comfortable, Behavior is calm, cooperative. cm10 Pain: Denies pain. Neuro: No deficits noted. Level of Consciousness is awake, alert, obeys commands, Oriented to person, place, time, situation, Appropriate for age. Respiratory: No deficits noted. Airway is patent Respiratory effort is even, unlabored, Respiratory pattern is regular, symmetrical. Historical: - Allergies: 20:54 Hydrocodone-Acetaminophen; cm10 - PMHx: 20:54 Diabetes mellitus; THYROID DISEASE; Glaucoma; Depressive disorder; GERD; cm10 - Immunization history:: Adult Immunizations up to date. - Infectious Disease History:: Denies. - Social history:: Smoking status: Patient reports the use of cigarette tobacco products, smokes one-half pack cigarettes per day. Screenin:10 [facility] ED Fall Risk Assessment (Adult) History of falling in the last 3 months, rg5 including since admission No falls in past 3 months (0 pts) Confusion or Disorientation No (0 pts) Intoxicated or Sedated No (0 pts) Impaired Gait No (0 pts) Mobility Assist Device Used No (0 pt) Altered Elimination No (0 pt) Score/Fall Risk Level 0 - 2 = Low Risk Oriented to surroundings, Maintained a safe environment, Hourly rounding (assess needs \T\ fall precautionary measures) done. 21:10 Abuse screen: Denies threats or abuse. Nutritional screening: No deficits noted. rg5 Tuberculosis screening: No symptoms or risk factors identified. Assessment: 21:00 Reassessment: No changes from previously documented assessment. Patient and/or family rg5 updated on plan of care and expected duration. Pain level reassessed. Patient is alert, oriented x 3, equal unlabored respirations, skin warm/dry/pink. 22:00 Reassessment: No changes from previously documented assessment. Patient and/or family rg5 updated on plan of care and expected duration. Pain level reassessed. Patient is alert, oriented x 3, equal unlabored respirations, skin warm/dry/pink. 23:00 Reassessment: No changes from previously documented assessment. Patient and/or family rg5 updated on plan of care and expected duration. Pain level reassessed. Patient is alert, oriented x 3, equal unlabored respirations, skin warm/dry/pink. 01/14 00:00 Reassessment: No changes from previously documented assessment. Patient and/or family rg5 updated on plan of care and expected duration. Pain level reassessed. Patient is alert, oriented x 3, equal unlabored respirations, skin warm/dry/pink. Vital Signs: 01/13 20:53 BP 112 / 79; Pulse 93; Resp 18; Temp 98(O); Pulse Ox 97% ; Weight 97.52 kg; Height 5 cm10 ft. 9 in. ; Pain 0/10; 21:00 BP 124 / 75; Pulse 83; Resp 18; Pulse Ox 96% on R/A; Pain 0/10; rg5 23:00 BP 119 / 75; Pulse 82; Resp 18; Pulse Ox 99% on R/A; Pain 0/10; rg5 20:53 Body Mass Index 31.75 (97.52 kg, 175.26 cm) cm10 20:53 Pain Scale: Adult cm10 21:00 Pain Scale: Adult rg5 23:00 Pain Scale: Adult rg5 ED Course: 20:09 Patient arrived in ED. mr 20:15 [facility] cp 20:15 Ian Rhoades MD is Attending Physician. cp 20:55 Triage completed. cm10 20:55 Arm band placed on right wrist. Patient placed in waiting room. cm10 21:10 Patient has correct armband on for positive identification. Bed in low position. Call rg5 light in reach. Side rails up X 1. Door closed. Noise minimized. Warm blanket given. 21:10 No provider procedures requiring assistance completed. Inserted saline lock: 20 gauge rg5 in right antecubital area, using aseptic technique. Blood collected. Flushed with 10 mL NS. 22:03 Tony Buenrostro, RN is Primary Nurse. rg5 01/14 00:00 Provided Education on: post er care done. rg5 00:00 IV discontinued, bleeding controlled, No redness/swelling at site. Pressure dressing rg5 applied. Administered Medications: 01/13 22:36 Drug: Insulin Regular Human IVP 10 units IVP once {Co-Signature: le1 (, rgDayna Poole RN).} Route: IVP; Site: right antecubital; 22:52 Follow up: Response: No adverse reaction rg5 22:37 Drug: NS 0.9% IV 1000 ml IV at 1000 ml once; to be given as a bolus over 60 minutes rg5 Route: IV; Rate: 1000 ml; Site: right antecubital; 23:45 Follow up: IV Status: Completed infusion; IV Intake: 1000ml rg5 23:00 Drug: Acetaminophen-Codeine PO (300 mg-30 mg) 2 tabs PO once; RASS on ADMIN: Combtv4, rg5 Very Agttd3, Agttd2, Rstlss1, AlertClm0, Drwsy-1, Lt Sdtn-2, Mod Sdtn-3, Dp Sdtn-4, UnArsble-5 Route: PO; 01/14 00:00 Follow up: Response: No adverse reaction; Pain is decreased rg5 01/13 23:00 Drug: Ketorolac IVP 15 mg IVP once Route: IVP; Site: right antecubital; rg5 23:59 Follow up: Response: No adverse reaction; Pain is decreased rg5 23:00 Drug: Clindamycin PO 600 mg PO once Route: PO; rg5 23:59 Follow up: Response: No adverse reaction rg5 Medication: 22:00 VIS not applicable for this client. rg5 Point of Care Testing: Blood Glucose: 20:53 Blood Glucose: 401 mg/dL; cm10 Ranges: Intake: 23:45 IV: 1000ml; Total: 1000ml. rg5 Outcome: 23:51 Discharge ordered by . sadi 01/14 00:00 Discharged to home ambulatory, rg5 Condition: stable 00:00 Discharge instructions given to patient, family, Instructed on discharge instructions, rg5 follow up and referral plans. Demonstrated understanding of instructions, follow-up care, medications, Prescriptions given X 2, 00:15 Patient left the ED. rg5 Signatures: Colleen Greer, Reg Reg mr Ian Ibrahim PA PA cp Martinez, Clarissa, RN RN cm10 Tony Buenrostro RN RN rg5 Virgilio Houston RN le1 Corrections: (The following items were deleted from the chart) 00:48 00:43 Patient left the ED. rg5 rg5
[2025-01-14 00:49] VITALS: TEMP 98
[2025-01-14 00:52] VITALS: BP 119/75; O2SAT 99
== END 2025-01-14 00:43 | disposition home or self-care (01) ==
LOC: ER 20:06
DX: E11.65 Type 2 diabetes mellitus with hyperglycemia (principal); K08.9 Disorder of teeth and supporting structures, unspecified; F17.210 Nicotine dependence, cigarettes, uncomplicated
CPT/HCPCS: 85025; 36415; 82947 ×3; 81003; 83690; 80053; J1815; J7030

== ENCOUNTER 2025-01-18 20:29 | Emergency (ER) | payer OTHER ==
[2025-01-18 22:01] LABS: Absolute Basophils 0.1 K/uL (0-0.5); Absolute Eosinophils 0.3 K/uL (0-0.5); Absolute Lymphocytes (CBC) 2.7 K/uL (0.7-4.9); Absolute Monocytes 0.7 K/uL (0.1-1.3); Absolute Neutrophil 4.1 K/uL (1.8-8.0); Basophils % 0.8 % (0-1.3); Eosinophils % 3.3 % (0-4.4); Hematocrit 41.3 % (39.6-49.0); MCH 31.8 pg (27.0-35.0); MCV 93.5 fL (80-100); MPV 9.9 fL (7.6-11.3); Monocytes % 8.3 % (3.3-12.3); Neutrophils % 52.6 % (41.7-73.7); Nucleated Red Blood Cells % 0.1 % (0-0); Platelets 157 thou/uL (152-406); RBC Red Blood Cell Count 4.41 M/uL (4.33-5.43); Red Cell Distribution Width 13.2 % (12.1-15.2)
[2025-01-18 22:02] LABS: Barbiturates NEGATIVE (NEGATIVE); Benzodiazepines NEGATIVE (NEGATIVE); Cocaine NEGATIVE (NEGATIVE); METHAMPHETAM NEGATIVE (NEGATIVE); Methadone NEGATIVE (NEGATIVE); Opiates NEGATIVE (NEGATIVE); Phencyclidine NEGATIVE (NEGATIVE); THC Cannibis NEGATIVE (NEGATIVE)
[2025-01-18 22:05] LABS: PT Prothrombin Time 11.1 SECONDS (10-13.0); PTT, Activated Partial Thromb 30.8 SECONDS (27.2-37.4); Protime INR 0.97
[2025-01-18 22:15] LABS: Urine Bilirubin NEGATIVE (Negative); Urine Blood Negative (Negative); Urine Clarity Clear (Clear); Urine Color Colorless (Yellow); Urine Glucose 4+ (Over) (Negative); Urine Ketones NEGATIVE (Negative); Urine Microscopic Reflex YN NO UMIC; Urine Nitrite NEGATIVE (Negative); Urine Protein NEGATIVE (Negative); Urine Urobilinogen Normal (Normal)
[2025-01-18 22:18] LABS: ALT/SGPT 66 U/L (16-61); AST/SGOT 26 U/L (15-37); Albumin 3.4 g/dL (3.4-5.0); Albumin/Globulin Ratio 0.9 (1.1-1.8); Alkaline Phosphatase 171 U/L (45-117); BUN Blood Urea Nitrogen 19 mg/dL (7-18); Bicarbonate 26 mEq/L (21-32); Bilirubin Direct < 0.2 mg/dL (0-0.2); Bilirubin Indirect, Calculated 0.1 mg/dL (0.2-0.8); Bilirubin Total 0.3 mg/dL (0.2-1.0); Globulin 3.8 g/dL (2.3-3.5); Glomerular Filtration Rate 64 ml/min (=/>90); Protein, Total 7.2 g/dL (6.4-8.2); Sodium Level 130 mEq/L (136-145)
[2025-01-18 22:20] LABS: Glucose Level 665 mg/dL (74-106)
[2025-01-18] MEDS ORDERED: INSULIN REGULAR (HUMAN) 100 UNIT/ML ONE (22:37)
[2025-01-18] MEDS ORDERED: LIDOCAINE VISCOUS 2% 10ML ORAL SOLN ONE (22:38)
[2025-01-18] MEDS ORDERED: MAGNES/ALUMIN/SIMET 30ML UCUP ONE (22:38)
[2025-01-18] MEDS ORDERED: NA CHLORIDE 0.9% 1,000 ML ONE (22:38)
--- NOTE | 2025-01-19 00:49 | EDPHYS ---
Physician Documentation [facility] Name: Chi Kelley Age: 54 yrs Sex: Male : 1970 Arrival Date: 01/18/2025 Time: 20:29 Bed 15 Private MD: ED Physician Bobby Fox HPI: 01/18 21:22 This 54 yrs old Male presents to ER via Law Enforcement with complaints of Suicidal rt Ideation. 21:22 Patient presents to the ED with recurrence of suicidal ideation, patient reportedly rt threatened to cut his throat with a razor, called crisis hotline, PD brought the patient in. The patient denies injuring himself or other physical complaints, symptoms are moderate severity, no other aggravating or alleviating factors.. Historical: - Allergies: : Hydrocodone-Acetaminophen; rg5 - PMHx: 20: depressive disorder; diabetes mellitus; GERD; Glaucoma; thyroid disease; rg5 - Immunization history:: Adult Immunizations up to date. - Infectious Disease History:: Denies. - Social history:: Smoking status: Patient reports the use of cigarette tobacco products, smokes one-half pack cigarettes per day. - Family history:: not pertinent. ROS: 21:22 Constitutional: Negative for fever, chills, and weight loss, Cardiovascular: Negative rt for chest pain, palpitations, and edema, Respiratory: Negative for shortness of breath, cough, wheezing, and pleuritic chest pain, Abdomen/GI: Negative for abdominal pain, nausea, vomiting, diarrhea, and constipation, MS/Extremity: Negative for injury and deformity, Skin: Negative for injury, rash, and discoloration, 21:22 Psych: Positive for depression, suicidal ideation, Exam: 21:22 Constitutional: This is a well developed, well nourished patient who is awake, alert, rt and in no acute distress. Head/Face: Normocephalic, atraumatic. Chest/axilla: Normal chest wall appearance and motion. Nontender with no deformity. No lesions are appreciated. Cardiovascular: Regular rate and rhythm with a normal S1 and S2. No gallops, murmurs, or rubs. Normal PMI, no JVD. No pulse deficits. Respiratory: Lungs have equal breath sounds bilaterally, clear to auscultation and percussion. No rales, rhonchi or wheezes noted. No increased work of breathing, no retractions or nasal flaring. Abdomen/GI: Soft, non-tender, with normal bowel sounds. No distension or tympany. No guarding or rebound. No evidence of tenderness throughout. Skin: Warm, dry with normal turgor. Normal color with no rashes, no lesions, and no evidence of cellulitis. MS/ Extremity: Pulses equal, no cyanosis. Neurovascular intact. Full, normal range of motion. Neuro: Awake and alert, GCS 15, oriented to person, place, time, and situation. Cranial nerves II-XII grossly intact. Motor strength 5/5 in all extremities. Sensory grossly intact. Cerebellar exam normal. Normal gait. 21:22 ECG was reviewed by the Attending Physician. Vital Signs: 20:29 BP 130 / 81; Pulse 88; Resp 18; Temp 98.3(O); Pulse Ox 97% on R/A; Weight 99.5 kg; rg5 Height 5 ft. 9 in. ; 20:53 BP 131 / 73; Pulse 89; Resp 18; Pulse Ox 97% on R/A; rg5 01/19 09:55 BP 129 / 67; Pulse 74; Resp 18; Temp 98.2; Pulse Ox 98% ; db 01/18 20:29 Body Mass Index 32.39 (99.50 kg, 175.26 cm) [facility] MDM: 01/18 20:48 Medical Screening Exam initiated rt 01/19 01:11 Differential diagnosis: Suicidal ideation, hyperglycemia. Data reviewed: vital signs, rt nurses notes, lab test result(s), EKG. Consideration of Admission/Observation Patient requires transfer for psychiatric stabilization. I considered the following discharge prescriptions or medication management in the emergency department Medications were administered in the Emergency Department. See MAR. Care significantly affected by the following chronic conditions: Diabetes. Counseling: I had a detailed discussion with the patient and/or guardian regarding the historical points, exam findings, and any diagnostic results supporting the discharge/admit diagnosis, lab results, the need to transfer to another facility. Response to treatment: the patient's symptoms have markedly improved after treatment. 01/18 21:25 Order name: Acetaminophen; Complete Time: 22:21 rt 01/18 21:25 Order name: Basic Metabolic Panel; Complete Time: 22:21 rt 01/18 21:25 Order name: CBC with Diff; Complete Time: 22:21 rt 01/18 21:25 Order name: ETOH Level; Complete Time: 22: rt 01/18 21:25 Order name: Hepatic Function; Complete Time: : rt 01/18 21:25 Order name: PT-INR; Complete Time: : rt 01/18 21:25 Order name: Ptt, Activated; Complete Time: 22: rt 01/18 21:25 Order name: Salicylate; Complete Time: 22: rt 01/18 21:25 Order name: Urinalysis w/ reflexes; Complete Time: : rt 01/18 21:25 Order name: Urine Drug Screen; Complete Time: 22: rt 01/19 00:11 Order name: Glucose, Ancillary Testing; Complete Time: 00:12 EDMS 01/19 08:02 Order name: Glucose, Ancillary Testing EDMS 01/18 21:25 Order name: EKG - Nurse/Tech; Complete Time: 21:30 rt 01/18 21:25 Order name: IV Saline Lock; Complete Time: :30 rt 01/18 21:25 Order name: Labs collected and sent; Complete Time: 21:30 rt 01/18 21:25 Order name: Suicide Precautions; Complete Time: 21:30 rt 01/18 21:25 Order name: Suicide Screening ([place]); Complete Time: 21:30 rt 01/18 22:30 Order name: Accucheck: after IVF; Complete Time: 00:00 rt 04 07:00 Order name: Accucheck: 0800; Complete Time: 07:59 vc1 EC/03 21: Rate is 88 beats/min. Rhythm is regular, Normal Sinus Rhythm with No ectopy. QRS [place] rt is Normal. MI interval is normal. QRS interval is normal. QT interval is normal. No Q waves. T waves are Normal. No ST changes noted. Interpreted by me. Administered Medications: 22:45 Drug: GI Cocktail without - (Maalox PO 30 ml, Lidocaine Mucous Membrane 2 % 15 rg5 ml) PO once Route: PO; 23:08 Follow up: Response: No adverse reaction rg5 22:45 Drug: NS 0.9% IV 1000 ml IV at 1000 ml once; to be given as a bolus over 60 minutes rg5 Route: IV; Rate: 1000 ml; Site: right hand; 01/19 00:00 Follow up: IV Status: Completed infusion; IV Intake: 1000ml [facility] 01/18 22:45 Drug: Insulin Regular Human IVP 10 units IVP once {Co-Signature: cp4 (reji Adam).} Route: IVP; Site: right hand; 23:08 Follow up: Response: No adverse reaction [facility] 01/19 07:58 Drug: Insulin Regular Human Sub-Q 5 units Sub-Q once {Co-Signature: aa5 (sukhdev Torre RN).} Route: Sub-Q; Site: right upper arm; 09:30 Follow up: Response: No adverse reaction db Point of Care Testing: Blood Glucose: 00:00 Blood Glucose: 357 mg/dL; rg 07:51 Blood Glucose: 286 mg/dL; db Ranges: Critical Glucose Levels:Adult <50 mg/dl or >400 mg/dl <40 mg/dl or >180 mg/dl Disposition Summary: 01/19/25 00:48 Transfer Ordered Notes: Transfer Location: Psych Facility rt Reason: Higher level of care rt Condition: Stable rt Problem: new rt Symptoms: are unchanged rt Accepting Physician: (01/19/25 09:59) belgica Diagnosis - Suicidal ideation rt - Hyperglycemia rt Discharge Instructions: - Discharge Summary Sheet rv1 Forms: - Medication Reconciliation Form rt - SBAR form rv1 Signatures: Dispatcher [employer] Maria Esther Tom Setul, MD MD sp3 Danae Bloom RN RN vc1 rAianna Campo RN RN db Bobby Fox MD MD rt Tony Buenrostro RN RN rgJazmin Mccarthy cp4 Abbi Torre RN aa5 Corrections: (The following items were deleted from the chart) 01/18 21:25 21:25 ACETAMINOPHEN+C.LAB.BRZ ordered. EDMS EDMS 21:25 21:25 BASIC METABOLIC PANEL+C.LAB.BRZ ordered. EDMS EDMS 21:25 21:25 CBC+H.LAB.BRZ ordered. EDMS EDMS 21:25 21:25 ETHANOL+C.LAB.BRZ ordered. EDMS EDMS 21:25 21:25 HEPATIC FUNCTION+C.LAB.BRZ ordered. EDMS EDMS 21:25 21:25 PROTIME (+INR)+COAG.LAB.BRZ ordered. EDMS EDMS 21: 21:25 PTT, ACTIVATED+COAG.LAB.BRZ ordered. EDMS EDMS : 21:25 SALICYLATE+C.LAB.BRZ ordered. EDMS EDMS : 21:25 Urinalysis+U.LAB.BRZ ordered. EDMS EDMS : 21:25 URINE DRUG SCREEN+UC.LAB.BRZ ordered. EDMS EDMS 01/19 09:59 00:48 dr rt lindo
--- NOTE | 2025-01-19 00:49 | ER ---
Nurse's Notes [facility] Name: Chi Kelley Age: 54 yrs Sex: Male : 1970 Arrival Date: 01/18/2025 Time: 20:29 Bed 15 Private MD: Diagnosis: Suicidal ideation;Hyperglycemia Presentation: 01/18 20:29 Chief complaint: errol NGUYEN brought the patient with suicidal Ideation, he calls rg5 the hotline earlier around 1430 hrs that he will cut himself with a razor. 20:29 Coronavirus screen: Client denies travel out of the [place] in the last 14 days. Ebola rg5 Screen: Patient negative for fever greater than or equal to 101.5 degrees Fahrenheit, and additional compatible Ebola Virus Disease symptoms Patient denies exposure to infectious person. Patient denies travel to an Ebola-affected area in the 21 days before illness onset. Initial Sepsis Screen: Does the patient meet any 2 criteria? No. Patient's initial sepsis screen is negative. Does the patient have a suspected source of infection? No. Patient's initial sepsis screen is negative. Risk Assessment: Do you want to hurt yourself or someone else? Patient reports no desire to harm self or others. Onset of symptoms was January 18, 2025. 20:29 Method Of Arrival: Law Enforcement: Errol NGUYEN rg5 20:29 Acuity: DORIAN 3 rg5 Triage Assessment: 20:29 General: Appears in no apparent distress. comfortable, Behavior is calm, cooperative, rg5 appropriate for age, Reports suicidal ideation. Pain: Complains of pain in abdomen Quality of pain is described as aching. EENT: No deficits noted. Neuro: Level of Consciousness is awake, alert, obeys commands, Oriented to person, place, time, situation. Cardiovascular: Denies chest pain, Patient's skin is warm and dry. Respiratory: Airway is patent Trachea midline Respiratory effort is even, unlabored, Respiratory pattern is regular, symmetrical. GI: Abdomen is round non-distended, Abd is soft and non tender. : No signs and/or symptoms were reported regarding the genitourinary system. Derm: Skin is intact, Skin is dry, Skin is normal, Skin temperature is warm. Musculoskeletal: Circulation, motion, and sensation intact. Range of motion: intact in all extremities. Historical: - Allergies: 20:29 Hydrocodone-Acetaminophen; rg5 - PMHx: 20:29 depressive disorder; diabetes mellitus; GERD; Glaucoma; thyroid disease; rg5 - Immunization history:: Adult Immunizations up to date. - Infectious Disease History:: Denies. - Social history:: Smoking status: Patient reports the use of cigarette tobacco products, smokes one-half pack cigarettes per day. - Family history:: not pertinent. Screenin:29 [facility] ED Fall Risk Assessment (Adult) History of falling in the last 3 months, rg5 including since admission No falls in past 3 months (0 pts) Confusion or Disorientation No (0 pts) Intoxicated or Sedated No (0 pts) Impaired Gait No (0 pts) Mobility Assist Device Used No (0 pt) Altered Elimination No (0 pt) Score/Fall Risk Level 0 - 2 = Low Risk Oriented to surroundings, Maintained a safe environment, Provided non-skid footwear. 20:29 Abuse screen: Denies threats or abuse. Nutritional screening: No deficits noted. rg5 Tuberculosis screening: No symptoms or risk factors identified. Assessment: 20:29 Reassessment: see triage assessment. rg5 21:25 Reassessment: No changes from previously documented assessment. Patient and/or family rg5 updated on plan of care and expected duration. Pain level reassessed. Patient is alert, oriented x 3, equal unlabored respirations, skin warm/dry/pink. 22:25 Reassessment: No changes from previously documented assessment. Patient and/or family rg5 updated on plan of care and expected duration. Pain level reassessed. Patient is alert, oriented x 3, equal unlabored respirations, skin warm/dry/pink. General: Appears in no apparent distress. comfortable, Behavior is calm, cooperative, appropriate for age. 23:35 Reassessment: Patient and/or family updated on plan of care and expected duration. Pain rg5 level reassessed. Patient is alert, oriented x 3, equal unlabored respirations, skin warm/dry/pink. General: Appears in no apparent distress. comfortable, Behavior is calm, cooperative, appropriate for age, quiet. Respiratory: Airway is patent Trachea midline Respiratory effort is even, unlabored, Respiratory pattern is regular, symmetrical. 01/19 00:00 Reassessment: No changes from previously documented assessment. Patient and/or family rg5 updated on plan of care and expected duration. Pain level reassessed. 01:00 Reassessment: No changes from previously documented assessment. Patient and/or family rg5 updated on plan of care and expected duration. Pain level reassessed. General: Appears in no apparent distress. comfortable, Behavior is calm, cooperative, sleeping. 02:00 Reassessment: No changes from previously documented assessment. Patient and/or family rg5 updated on plan of care and expected duration. Pain level reassessed. Patient is alert, oriented x 3, equal unlabored respirations, skin warm/dry/pink. General: Appears in no apparent distress. comfortable, Behavior is calm, sleeping. 03:05 Reassessment: No changes from previously documented assessment. Patient and/or family rg5 updated on plan of care and expected duration. Pain level reassessed. Patient is alert, oriented x 3, equal unlabored respirations, skin warm/dry/pink. General: Appears in no apparent distress. comfortable, Behavior is calm, cooperative, appropriate for age, sleeping. 04:10 Reassessment: No changes from previously documented assessment. Patient and/or family rg5 updated on plan of care and expected duration. Pain level reassessed. General: Appears in no apparent distress. comfortable, sleeping. 05:25 Reassessment: No changes from previously documented assessment. Patient and/or family rg5 updated on plan of care and expected duration. Pain level reassessed. General: Appears in no apparent distress. comfortable, sleeping. Behavior is calm, cooperative, quiet. 06:37 Reassessment: No changes from previously documented assessment. Patient and/or family rg5 updated on plan of care and expected duration. Pain level reassessed. General: Appears in no apparent distress. comfortable, sleeping. 07:05 Reassessment: Patient appears in no apparent distress at this time. Patient and/or db family updated on plan of care and expected duration. Pain level reassessed. Patient is alert, oriented x 3, equal unlabored respirations, skin warm/dry/pink. 08:05 Reassessment: PATIENT SERVED BREAKFAST. db 09:00 Reassessment: Patient appears in no apparent distress at this time. Patient and/or db family updated on plan of care and expected duration. Pain level reassessed. Patient is alert, oriented x 3, equal unlabored respirations, skin warm/dry/pink. 09:55 Reassessment: Patient appears in no apparent distress at this time. Patient and/or db family updated on plan of care and expected duration. Pain level reassessed. Patient is alert, oriented x 3, equal unlabored respirations, skin warm/dry/pink. Psych: 01/18 20:29 [place] Suicide Severity Screening: In the past month, have you wished you were rg5 or wished you could go to sleep and not wake up? Patient responds "yes." "In the past month, have you actually had any thoughts of killing yourself?" Patient responds "yes." "In your lifetime, have you ever done anything, started to do anything, or prepared to do anything to end your life?" Patient responds "yes." Patient reports suicidal intent within 3 past months. 20:29 Subjective: Patient's mood is sad, Delusions are denied, Having thoughts of suicide. rg5 Plan for suicide is cutting his wrist with a razor. Objective: Patient is cooperative, Speech is normal, Affect is appropriate. Interventions: Removed personal items and placed in bag. Patient placed in hospital gown. Searched person for dangerous items. Urine collected and sent for urine drug test. Belonging list filled out. Safety Checks: Personal items have been removed. Door is open. No visitors are present at this time. Pt denies substance abuse. 01/19 07:05 [place] Suicide Severity Screening: In the past month, have you wished you were db or wished you could go to sleep and not wake up? Patient responds "yes." "In the past month, have you actually had any thoughts of killing yourself?" Patient responds "yes." "In your lifetime, have you ever done anything, started to do anything, or prepared to do anything to end your life?" Patient responds "yes.". Subjective: Patient's mood is sad, Delusions are denied. Subjective: Having thoughts of suicide. Objective: Patient is cooperative, Speech is normal, Affect is appropriate. Interventions: Removed personal items and placed in bag. Patient placed in hospital gown. Searched person for dangerous items. Safety Checks: Personal items have been removed. Door is open. No visitors are present at this time. Pt denies substance abuse. Commitment: Patient will be a voluntary commitment. Commitment papers completed. Vital Signs: 01/18 20:29 BP 130 / 81; Pulse 88; Resp 18; Temp 98.3(O); Pulse Ox 97% on R/A; Weight 99.5 kg; rg5 Height 5 ft. 9 in. ; 20:53 BP 131 / 73; Pulse 89; Resp 18; Pulse Ox 97% on R/A; rg5 01/19 09:55 BP 129 / 67; Pulse 74; Resp 18; Temp 98.2; Pulse Ox 98% ; db 01/18 20:29 Body Mass Index 32.39 (99.50 kg, 175.26 cm) rg5 ED Course: 01/18 20:29 Arm band placed on. EKG completed in triage. Results shown to MD. rg5 20:29 Patient has correct armband on for positive identification. Placed in gown. Side rails rg5 up X 1. Door closed. Noise minimized. 20:29 No provider procedures requiring assistance completed. rg5 20:30 Patient arrived in ED. rv1 20:31 Bobby Fox MD is Attending Physician. rt 20:31 Tony Buenrostro RN is Primary Nurse. rg5 20:49 Triage completed. rg5 21:35 EKG done, by ED staff, reviewed by Bobby Fox MD. oe 22:03 Inserted saline lock: 22 gauge in right hand, using aseptic technique. Blood collected. oe Flushed with 10 mL NS. 01/19 00:15 Faxed pt clinicals to the following facilities for placement; [address] 09:55 Provided Education on: TRANSFER AND FOLLOWUP. db 09:55 Sitter at bedside. db 09:55 IV discontinued, intact, bleeding controlled, No redness/swelling at site. db Administered Medications: 01/18 22:45 Drug: GI Cocktail without - (Maalox PO 30 ml, Lidocaine Mucous Membrane 2 % 15 rg5 ml) PO once Route: PO; 23:08 Follow up: Response: No adverse reaction rg5 22:45 Drug: NS 0.9% IV 1000 ml IV at 1000 ml once; to be given as a bolus over 60 minutes rg5 Route: IV; Rate: 1000 ml; Site: right hand; 01/19 00:00 Follow up: IV Status: Completed infusion; IV Intake: 1000ml rg5 01/18 22:45 Drug: Insulin Regular Human IVP 10 units IVP once {Co-Signature: cp4 (Potreji coon).} Route: IVP; Site: right hand; 23:08 Follow up: Response: No adverse reaction rg5 01/19 07:58 Drug: Insulin Regular Human Sub-Q 5 units Sub-Q once {Co-Signature: aa5 (sukhdev Torre RN).} Route: Sub-Q; Site: right upper arm; 09:30 Follow up: Response: No adverse reaction db Medication: 01/18 20:56 VIS not applicable for this client. rg5 Point of Care Testing: Blood Glucose: 01/19 00:00 Blood Glucose: 357 mg/dL; rg5 07:51 Blood Glucose: 286 mg/dL; db Ranges: Intake: 00:00 IV: 1000ml; Total: 1000ml. rg5 Outcome: 00:48 ER care complete, transfer ordered by MD. rt 09:55 Transferred by ground EMS Transfer form completed. Note: TRANSFERRED TO [facility] db 09:55 Condition: stable 09:55 Instructed on the need for transfer, 09:59 Patient left the ED. eb Signatures: Mohinder Guevara Elizabeth eb Benton, Danielle, RN RN db Bobby Fox MD MD rt oPlina Gregg rv1 Tony Buenrostro, RN RN Jazmin Turpin cp4 Abbi Torre RN5 Corrections: (The following items were deleted from the chart) 01/18 23:36 23:34 Reassessment: see triage assessment. rg5 rg5
[2025-01-19] MEDS ORDERED: INSULIN REGULAR (HUMAN) 100 UNIT/ML ONE (07:56)
[2025-01-19 10:22] VITALS: O2SAT 97
[2025-01-19 10:24] VITALS: BP 130/81; TEMP 98.3
--- NOTE | 2025-01-19 13:20 | EKG ---
Test Date: 2025-01-18 Test Time: 20:55:58 Flood Control Engineer: DARRON MEASUREMENT RESULTS: Intervals: Rate: 88 OH: 168 QRSD: 86 QT: 352 QTc: 425 [place]: P: 40 OH: 168 QRS: 30 T: 40 INTERPRETIVE STATEMENTS: Normal sinus rhythm Normal ECG Compared to ECG 12/28/2024 21:06:49 No significant changes Electronically Signed On 01-19-25 13:18:42 CDT by Noel Azul
== END 2025-01-19 09:59 ==
LOC: ER 20:29
DX: R45.851 Suicidal ideations (principal); E11.65 Type 2 diabetes mellitus with hyperglycemia; F32.A Depression, unspecified; F17.210 Nicotine dependence, cigarettes, uncomplicated; Z88.5 Allergy status to narcotic agent
CPT/HCPCS: 96361; 93005; 85025; 80048; 36415; 85610; 82947 ×2; 80076; 85730; 81003; 80307; 96372; 96374; 99285; 80143; 80179; 82077; J1815 ×2; J7030

== ENCOUNTER 2025-01-25 01:39 | Emergency (ER) | payer OTHER ==
[2025-01-25] MEDS ORDERED: DIPHENHYDRAMINE 50 MG/ML VIAL ONE (02:16)
[2025-01-25] MEDS ORDERED: droPERidol 5 MG/2 ML VIAL ONE (02:16)
[2025-01-25] MEDS ORDERED: ONDANSETRON 4 MG/2 ML VIAL ONE (02:16)
[2025-01-25] MEDS ORDERED: FAMOTIDINE 20 MG/2 ML VIAL IV ONE (02:16)
[2025-01-25] MEDS ORDERED: NA CHLORIDE 0.9% 1,000 ML ONE ×2 (02:16→05:31)
[2025-01-25 02:57] LABS: Specific Gravity > 1.030 (1.005-1.030); Sqamous Epithelial None Seen /HPF (None Seen); Urine Bacteria None Seen /HPF (<20); Urine Bilirubin NEGATIVE (Negative); Urine Blood Negative (Negative); Urine Clarity Clear (Clear); Urine Color Light-Yellow (Yellow); Urine Culture Reflex Order NOT NEEDED; Urine Glucose 4+ (Over) (Negative); Urine Ketones NEGATIVE (Negative); Urine Microscopic Reflex YN ORDER UMIC; Urine Nitrite NEGATIVE (Negative); Urine Protein NEGATIVE (Negative); Urine RBC <5 /HPF (None Seen); Urine Urobilinogen Normal (Normal); Urine WBC <5 /HPF (<5)
[2025-01-25 03:00] LABS: Absolute Basophils 0.1 K/uL (0-0.5); Absolute Eosinophils 0.3 K/uL (0-0.5); Absolute Lymphocytes (CBC) 3.3 K/uL (0.7-4.9); Absolute Monocytes 0.8 K/uL (0.1-1.3); Absolute Neutrophil 4.2 K/uL (1.8-8.0); Basophils % 0.8 % (0-1.3); Eosinophils % 3.5 % (0-4.4); Hematocrit 41.5 % (39.6-49.0); Hemoglobin 14.2 g/dL (13.6-17.9); Lymphocytes % 38.2 % (15.3-44.8); MCH 31.7 pg (27.0-35.0); MCHC 34.2 g/dL (32.0-36.0); MCV 92.6 fL (80-100); MPV 10.5 fL (7.6-11.3); Monocytes % 8.9 % (3.3-12.3); Neutrophils % 48.6 % (41.7-73.7); Nucleated Red Blood Cells % 0.1 % (0-0); Platelets 153 thou/uL (152-406); RBC Red Blood Cell Count 4.49 M/uL (4.33-5.43); Red Cell Distribution Width 13.2 % (12.1-15.2)
[2025-01-25 03:09] LABS: Albumin 3.4 g/dL (3.4-5.0); Anion Gap 9.9 mEq/L (5.0-15.0); Bilirubin Total 0.3 mg/dL (0.2-1.0); Globulin 3.4 g/dL (2.3-3.5); Potassium 3.9 mEq/L (3.5-5.1); Protein, Total 6.8 g/dL (6.4-8.2)
[2025-01-25] MEDS ORDERED: INSULIN REGULAR (HUMAN) 100 UNIT/ML ONE (05:29)
--- NOTE | 2025-01-25 06:10 | RAD REPORT ---
CLINICAL HISTORY: Abdominal pain. COMPARISON: None. TECHNIQUE: CT ABDOMEN PELVIS WITHOUT IV CONTRAST on 01/25/2025 2:12 AM CDT This exam was performed according to our departmental dose-optimization program, which includes autom ated exposure control, adjustment of the mA and/or kV according to patient size and/or use of iterative reconstruction technique. FINDINGS: Lower lungs are clear. Abdomen: Liver is diffusely fatty in attenuation. There is no biliary dilatation. Cholecystectomy was performed. The pancreas and spleen are normal in appearance. There is a 1 mm lower pole left renal calculus. There is a 1 mm mid to lower pole right renal calculus. Adrenal glands are normal. There is no hydronephrosis. Abdominal aorta is normal in course and caliber without aneurysm. There is no free air. There is no r etroperitoneal adenopathy. Pelvis: There is no bowel obstruction. Urinary bladder is unremarkable. There is no free fluid. There are postoperative changes of the left inguinal canal. Appendix is normal. Skeleton: There are no acute osseous findings. No suspicious bony lesions. IMPRESSION: Minimal bilateral nephrolithiasis without hydronephrosis. Electronically signed by: Jaime Hu MD 01/25/2025 05:55 AM CDT RP Due to temporary technical issues with the PACS/VISUAL NACERT reporting system, reports are being juliette d by the in-house radiologist without review as a courtesy to ensure prompt reporting the interpreting radiologist is fully responsible for the content of the report. Transcribed Date/Time: 01/25/2025 6:10 AM
--- NOTE | 2025-01-25 06:59 | EDPHYS ---
Physician Documentation [facility] Name: Chi Kelley Age: 54 yrs Sex: Male : 1970 Arrival Date: 01/25/2025 Time: 01:39 Bed 5 Private MD: ED Physician Jarret Arndt HPI: 01/25 02:05 This 54 yrs old Male presents to ER via EMS with complaints of Abdominal Pain.sp4 20:34 54-year-old male presents with complaint of diffuse abdominal pain and elevated blood sp4 sugar.. Historical: - Allergies: 01:45 Hydrocodone-Acetaminophen; al5 - PMHx: 01:45 depressive disorder; diabetes mellitus; GERD; Glaucoma; thyroid disease; al5 - PSHx: 01:45 None; al5 - Immunization history:: Adult Immunizations up to date. - Infectious Disease History:: Denies. - Social history:: Smoking status: Patient reports the use of cigarette tobacco products, unknown amount. - Family history:: not pertinent. ROS: 20:34 Constitutional: Negative for fever, chills, and weight loss, positive for diffuse sp4 abdominal pain, positive for elevated blood sugar 20:34 All other systems are negative, Exam: 20:34 Constitutional: This is a well developed, well nourished patient who is awake, alert, sp4 and in no acute distress. Head/Face: Normocephalic, atraumatic. Eyes: Pupils equal round and reactive to light, extra-ocular motions intact. Lids and lashes normal. Conjunctiva and sclera are not injected. Cornea within normal limits. Periorbital areas with no swelling, redness, or edema. ENT: Nares patent. No nasal discharge, no septal abnormalities noted. Tympanic membranes are normal and external auditory canals are clear. Oropharynx with no redness, swelling, or masses, exudates, or evidence of obstruction, uvula midline. Mucous membranes moist. Neck: Trachea midline, no thyromegaly or masses palpated, and no cervical lymphadenopathy. Supple, full range of motion without nuchal rigidity, or vertebral point tenderness. Chest/axilla: Normal chest wall appearance and motion. Nontender with no deformity. No lesions are appreciated. Cardiovascular: Regular rate and rhythm with a normal S1 and S2. No gallops, murmurs, or rubs. Normal PMI, no JVD. No pulse deficits. Respiratory: Lungs have equal breath sounds bilaterally, clear to auscultation and percussion. No rales, rhonchi or wheezes noted. No increased work of breathing, no retractions or nasal flaring. Abdomen/GI: Soft, with normal bowel sounds. No distension or tympany. No guarding or rebound. No evidence of tenderness throughout. Back: No spinal tenderness. No costovertebral tenderness. Skin: Warm, dry with normal turgor. Normal color with no rashes, no lesions, and no evidence of cellulitis. MS/ Extremity: Pulses equal, no cyanosis. Neurovascular intact. Full, normal range of motion. Neuro: Awake and alert, GCS 15, oriented to person, place, time, and situation. Cranial nerves II-XII grossly intact. Motor strength 5/5 in all extremities. Sensory grossly intact. Psych: Awake, alert, with orientation to person, place and time. Behavior, mood, and affect are within normal limits Vital Signs: 01:43 BP 140 / 78; Pulse 86; Resp 18; Temp 97.6; Pulse Ox 97% on R/A; Weight 95.25 kg; Height al5 5 ft. 7 in. ; 02:30 BP 125 / 72; Pulse 77; Resp 18; Pulse Ox 95% ; al5 03:15 BP 123 / 70; Pulse 79; Resp 18; Pulse Ox 95% ; al5 04:00 BP 117 / 64; Pulse 74; Resp 18; Pulse Ox 95% ; al5 04:30 BP 111 / 76; Pulse 79; Resp 18; Pulse Ox 95% ; al5 05:15 BP 106 / 63; Pulse 78; Resp 18; Pulse Ox 95% ; al5 06:45 BP 119 / 63; Pulse 70; Resp 16; Pulse Ox 95% ; al5 01:43 Body Mass Index 32.89 (95.25 kg, 170.18 cm) al5 William Coma Score: 20:34 Eye Response: spontaneous(4). Motor Response: obeys commands(6). Verbal Response: sp4 oriented(5). Total: 15. MDM: 01:59 Medical Screening Exam initiated sp4 06:54 ED course: CLINICAL HISTORY: Abdominal pain. COMPARISON: None. TECHNIQUE: CTABDOMEN sp4 PELVIS WITHOUT IV CONTRAST on 01/25/2025 2:12 AM CDT This exam was performed according to our departmental dose-optimization program, which includes automated exposure control, adjustment of the mA and/or kV according to patient size and/or use of iterative reconstruction technique. FINDINGS: Lower lungs are clear. Abdomen: Liver is diffusely fatty in attenuation. There is no biliary dilatation. Cholecystectomy was performed. The pancreas and spleen are normal in appearance. There is a 1 mm lower pole left renal calculus. There is a 1 mm mid to lower pole right renal calculus. Adrenal glands are normal. There is no hydronephrosis. Abdominal aorta is normal in course and caliber without aneurysm. There is no free air. There is no retroperitoneal adenopathy. Pelvis: There is no bowel obstruction. Urinary bladder is unremarkable. There is no free fluid. There are postoperative changes of the left inguinal canal. Appendix is normal. Skeleton: There are no acute osseous findings. No suspicious bony lesions. IMPRESSION: Minimal bilateral nephrolithiasis without hydronephrosis. . 20:37 Differential diagnosis: diverticulitis, gastritis, gastroesophageal reflux disease, sp4 Hepatitis, pancreatitis. Data reviewed: vital signs, nurses notes, lab test result(s), radiologic studies, CT scan. 20:37 ED course: Abdominal workup today is unremarkable, patient is stable for discharge sp4 home. Blood sugar was controlled with IV insulin and fluids.. . 01/25 02:12 Order name: CBC with Diff; Complete Time: 04:52 sp4 01/25 02:12 Order name: CMP; Complete Time: 04:52 sp4 01/25 02:12 Order name: Lipase; Complete Time: 04:52 sp4 01/25 02:12 Order name: Urinalysis w/ reflexes; Complete Time: 04:52 sp4 01/25 02:12 Order name: CT Abd/Pelvis - Without Contrast sp4 01/25 02:12 Order name: IV Saline Lock; Complete Time: 02:12 sp4 01/25 02:12 Order name: Labs collected and sent; Complete Time: 02:12 sp4 Administered Medications: 02:26 Drug: Droperidol IVP 2.5 mg IVP once Route: IVP; Site: right antecubital; al5 07:03 Follow up: Response: No adverse reaction al5 02:26 Drug: diphenhydrAMINE IVP 50 mg IVP once Route: IVP; Site: right antecubital; al5 07:03 Follow up: Response: No adverse reaction al5 02:27 Drug: Famotidine IVP 20 mg IVP once; dilute with 10 mL 0.9% NaCl; give over 2 minutes al5 Route: IVP; Site: right antecubital; 07:04 Follow up: Response: No adverse reaction al5 02:27 Drug: Ondansetron IVP 4 mg IVP once; over 2 minutes Route: IVP; Site: right antecubital;al5 07:04 Follow up: Response: No adverse reaction al5 02:27 Drug: NS 0.9% IV 1000 ml IV at 1 bolus Per protocol; to be given as a bolus over 60 al5 minutes Route: IV; Rate: 1 bolus; Site: right antecubital; 07:04 Follow up: Response: No adverse reaction; IV Status: Completed infusion; IV Intake: al5 1000ml 05:35 Drug: NS 0.9% IV 1000 ml IV at 1000 ml once; to be given as a bolus over 60 minutes al5 Route: IV; Rate: 1000 ml; Site: right antecubital; 07:03 Follow up: Response: No adverse reaction; IV Status: Completed infusion; IV Intake: al5 1000ml 05:36 Drug: Insulin Regular Human IVP 5 units IVP once {Co-Signature: kevin (Linda Davis vc1 RN).} Route: IVP; Site: right antecubital; 07:03 Follow up: Response: No adverse reaction al5 Disposition Summary: 01/25/25 06:59 Discharge Ordered Notes: Location: Home sp4 Problem: new sp4 Symptoms: have improved sp4 Condition: Stable sp4 Diagnosis - Type 2 diabetes mellitus with hyperglycemia sp4 - Denies abdominal pain, acute hyperglycemia associated with type 2 diabetes. sp4 Followup: sp4 - With: Private Physician - When: 7 - 10 days - Reason: Recheck today's complaints Discharge Instructions: - Discharge Summary Sheet sp4 - Diabetes Mellitus and Nutrition, Adult sp4 Forms: - Patient Portal Instructions sp4 Prescriptions: - Reglan 10 mg Oral tablet - take 1 tablet ORAL route every 6 hours PRN nausea; 30 tablet; Refills: 0, sp4 Product Selection Permitted - dicyclomine 20 mg Oral tablet - take 2 tablet ORAL route 3 times per day PRN abdominal pain; 30 tablet; sp4 Refills: 0, Product Selection Permitted Signatures: Dispatcher [employer] Danae Del Cid, RN RN vc1 Jarret Arndt MD MD sp4 Linda Davis RN RN al5 Linda Davis RN al5
--- NOTE | 2025-01-25 06:59 | ER ---
Nurse's Notes [facility] Name: Cih Kelley Age: 54 yrs Sex: Male : 1970 Arrival Date: 01/25/2025 Time: 01:39 Bed 5 Private MD: Diagnosis: Type 2 diabetes mellitus with hyperglycemia;Denies abdominal pain, acute hyperglycemia associated with type 2 diabetes. Presentation: 01/25 01:43 Chief complaint: Patient states: lower abdominal pain and constipation x3 days. al5 Coronavirus screen: At this time, the client does not indicate any symptoms associated with coronavirus-19. Ebola Screen: No symptoms or risks identified at this time. Initial Sepsis Screen: Does the patient meet any 2 criteria? No. Patient's initial sepsis screen is negative. Does the patient have a suspected source of infection? No. Patient's initial sepsis screen is negative. Risk Assessment: Do you want to hurt yourself or someone else? Patient reports no desire to harm self or others. Onset of symptoms was January 22, 2025. 01:43 Method Of Arrival: EMS: [facility] al5 01:43 Acuity: DORIAN 3 al5 01:43 Care prior to arrival: Medication(s) given: Normal saline infusion, 200 mL zofran 4 mg. al5 Triage Assessment: 01:46 General: Appears in no apparent distress. uncomfortable, Behavior is calm, cooperative. al5 Pain: Complains of pain in suprapubic area, right lower quadrant and left lower quadrant. EENT: No signs and/or symptoms were reported regarding the EENT system. Neuro: Level of Consciousness is awake, alert, obeys commands, Oriented to person, place, time, situation. Cardiovascular: Capillary refill < 3 seconds Patient's skin is warm and dry. Respiratory: Airway is patent Respiratory effort is even, unlabored, Respiratory pattern is regular, symmetrical. GI: Abdomen is round non-distended, Abd is soft X 4 quads Abdomen is tender to palpation in suprapubic area, right lower quadrant and left lower quadrant Reports lower abdominal pain, constipation, nausea. : No signs and/or symptoms were reported regarding the genitourinary system. Derm: Skin is intact, Skin is pink, warm \T\ dry. normal. Musculoskeletal: No signs and/or symptoms reported regarding the musculoskeletal system. Historical: - Allergies: :45 Hydrocodone-Acetaminophen; al5 - PMHx: 01:45 depressive disorder; diabetes mellitus; GERD; Glaucoma; thyroid disease; al5 - PSHx: 01:45 None; al5 - Immunization history:: Adult Immunizations up to date. - Infectious Disease History:: Denies. - Social history:: Smoking status: Patient reports the use of cigarette tobacco products, unknown amount. - Family history:: not pertinent. Screenin:[address] [facility] ED Fall Risk Assessment (Adult) History of falling in the last 3 months, al5 including since admission No falls in past 3 months (0 pts) Confusion or Disorientation No (0 pts) Intoxicated or Sedated No (0 pts) Impaired Gait No (0 pts) Mobility Assist Device Used No (0 pt) Altered Elimination No (0 pt) Score/Fall Risk Level 0 - 2 = Low Risk Oriented to surroundings, Maintained a safe environment, Hourly rounding (assess needs \T\ fall precautionary measures) done. Abuse screen: Denies threats or abuse. Denies injuries from another. Nutritional screening: No deficits noted. Tuberculosis screening: No symptoms or risk factors identified. Assessment: 01:47 Reassessment: see triage assessment. al5 02:58 Reassessment: Patient appears in no apparent distress at this time. No changes from al5 previously documented assessment. Patient and/or family updated on plan of care and expected duration. Pain level reassessed. Patient is alert, oriented x 3, equal unlabored respirations, skin warm/dry/pink. 04:45 Reassessment: Patient appears in no apparent distress at this time. No changes from al5 previously documented assessment. Patient and/or family updated on plan of care and expected duration. Pain level reassessed. Patient is alert, oriented x 3, equal unlabored respirations, skin warm/dry/pink. 07:16 Reassessment: Patient appears in no apparent distress at this time. Patient and/or ph family updated on plan of care and expected duration. Pain level reassessed. Patient is alert, oriented x 3, equal unlabored respirations, skin warm/dry/pink. Patient states feeling better. Patient states symptoms have improved. Vital Signs: 01:43 BP 140 / 78; Pulse 86; Resp 18; Temp 97.6; Pulse Ox 97% on R/A; Weight 95.25 kg; Height al5 5 ft. 7 in. ; 02:30 BP 125 / 72; Pulse 77; Resp 18; Pulse Ox 95% ; al5 03:15 BP 123 / 70; Pulse 79; Resp 18; Pulse Ox 95% ; al5 04:00 BP 117 / 64; Pulse 74; Resp 18; Pulse Ox 95% ; al5 04:30 BP 111 / 76; Pulse 79; Resp 18; Pulse Ox 95% ; al5 05:15 BP 106 / 63; Pulse 78; Resp 18; Pulse Ox 95% ; al5 06:45 BP 119 / 63; Pulse 70; Resp 16; Pulse Ox 95% ; al5 01:43 Body Mass Index 32.89 (95.25 kg, 170.18 cm) al5 William Coma Score: 20:34 Eye Response: spontaneous(4). Motor Response: obeys commands(6). Verbal Response: sp4 oriented(5). Total: 15. ED Course: 01:40 Patient arrived in ED. [email or web address] 01:43 Danae Bloom, RN is Primary Nurse. vc1 01:43 Jarret Arndt MD is Attending Physician. vc1 01:43 Linda Davis RN is Primary Nurse. al5 01:45 Triage completed. al5 01:47 Arm band placed on right wrist. Patient placed in the treatment room, in view of staff al5 members, on pulse oximetry. 01:49 Patient has correct armband on for positive identification. Bed in low position. Call al5 light in reach. Side rails up X2. Provided Education on: plan of care. 01:49 No provider procedures requiring assistance completed. Maintain EMS IV. Dressing al5 intact. Good blood return noted. Site clean \T\ dry. Gauge \T\ site: 20G RAC. Flushed with 10 mL NS. 03:23 CT Abd/Pelvis - Without Contrast In Process Unspecified. EDMS 07:14 IV discontinued, intact, bleeding controlled, No redness/swelling at site. Pressure ph dressing applied. Administered Medications: 02:26 Drug: Droperidol IVP 2.5 mg IVP once Route: IVP; Site: right antecubital; al5 07:03 Follow up: Response: No adverse reaction al5 02:26 Drug: diphenhydrAMINE IVP 50 mg IVP once Route: IVP; Site: right antecubital; al5 07:03 Follow up: Response: No adverse reaction al5 02:27 Drug: Famotidine IVP 20 mg IVP once; dilute with 10 mL 0.9% NaCl; give over 2 minutes al5 Route: IVP; Site: right antecubital; 07:04 Follow up: Response: No adverse reaction al5 02:27 Drug: Ondansetron IVP 4 mg IVP once; over 2 minutes Route: IVP; Site: right antecubital;al5 07:04 Follow up: Response: No adverse reaction al5 02:27 Drug: NS 0.9% IV 1000 ml IV at 1 bolus Per protocol; to be given as a bolus over 60 al5 minutes Route: IV; Rate: 1 bolus; Site: right antecubital; 07:04 Follow up: Response: No adverse reaction; IV Status: Completed infusion; IV Intake: al5 1000ml 05:35 Drug: NS 0.9% IV 1000 ml IV at 1000 ml once; to be given as a bolus over 60 minutes al5 Route: IV; Rate: 1000 ml; Site: right antecubital; 07:03 Follow up: Response: No adverse reaction; IV Status: Completed infusion; IV Intake: al5 1000ml 05:36 Drug: Insulin Regular Human IVP 5 units IVP once {Co-Signature: al5 (Linda Davis vc1 RN).} Route: IVP; Site: right antecubital; 07:03 Follow up: Response: No adverse reaction al5 Medication: 01:48 VIS not applicable for this client. al5 Intake: 07:03 IV: 1000ml; Total: 1000ml. al5 07:04 IV: 1000ml; Total: 2000ml. al5 Outcome: 06:59 Discharge ordered by . spBest 07:14 Discharged to home ambulatory, ph 07:14 Condition: good 07:14 Discharge instructions given to patient, Instructed on discharge instructions, follow up and referral plans. medication usage, Demonstrated understanding of instructions, follow-up care, medications, Prescriptions given X 2, 07:17 Patient left the ED. ph Signatures: Dispatcher [facility] Lisa Monterroso RN RN ph Renita Gilliland [email or web address] Danae Bloom RN RN vc1 Jarret Arndt MD MD sp4 Linda Davis, MELINA RN al5 Linda Davis RN al5
[2025-01-25 07:21] VITALS: TEMP 97.6
[2025-01-25 07:23] VITALS: O2SAT 95
[2025-01-25 07:31] VITALS: BP 119/63
== END 2025-01-25 07:17 | disposition home or self-care (01) ==
LOC: ER 01:39
DX: E11.65 Type 2 diabetes mellitus with hyperglycemia (principal); Z72.0 Tobacco use
CPT/HCPCS: 96361; 85025; 81001; 36415; 83690; 80053; 74176; 96375; 96374; 99284; J1200; J2405; J1790; J1815; J7030 ×2

== ENCOUNTER 2025-02-16 20:08 | Emergency (ER) | payer OTHER ==
--- NOTE | 2025-02-16 21:09 | EDPHYS ---
Physician Documentation [facility] Name: Chi Kelley Age: 55 yrs Sex: Male : 1970 Arrival Date: 02/16/2025 Time: 20:08 Bed 7 Private MD: ED Physician Garett Torres HPI: 02/16 21:06 This 55 yrs old Male presents to ER via EMS with complaints of Hyperglycemia and sp3 medication refill. 21:06 55-year-old male with history of diabetes presents to the ED with chief complaint sp3 needing medication refill of his metformin which he has been out of. Blood sugar has been running high at home. He denies any polyuria, polydipsia, near syncope, any other signs of DKA.. Historical: - Allergies: 20:21 Hydrocodone-Acetaminophen; cp4 - PMHx: 20:21 depressive disorder; GERD; diabetes mellitus; Glaucoma; thyroid disease; cp4 - Immunization history:: Adult Immunizations up to date. - Infectious Disease History:: Denies. - Social history:: Smoking status: Patient denies any tobacco usage or history of. ROS: 21:08 Constitutional: Negative for fever, chills, and weight loss, Eyes: Negative for injury, sp3 pain, redness, and discharge, ENT: Negative for injury, pain, and discharge, Neck: Negative for injury, pain, and swelling, Cardiovascular: Negative for chest pain, palpitations, and edema, Respiratory: Negative for shortness of breath, cough, wheezing, and pleuritic chest pain, Abdomen/GI: Negative for abdominal pain, nausea, vomiting, diarrhea, and constipation, Back: Negative for injury and pain, MS/Extremity: Negative for injury and deformity, Skin: Negative for injury, rash, and discoloration, Neuro: Negative for headache, weakness, numbness, tingling, and seizure, Allergy/Immunology: Negative for hives, rash, and allergies, Hematologic/Lymphatic: Negative for swollen nodes, abnormal bleeding, and unusual bruising, 21:08 All other systems are negative, Exam: 21:08 Constitutional: This is a well developed, well nourished patient who is awake, alert, sp3 and in no acute distress. Head/Face: Normocephalic, atraumatic. Eyes: Pupils equal round and reactive to light, extra-ocular motions intact. Lids and lashes normal. Conjunctiva and sclera are non-icteric and not injected. Cornea within normal limits. Periorbital areas with no swelling, redness, or edema. ENT: Nares patent. No nasal discharge, no septal abnormalities noted. External auditory canals are clear. Oropharynx with no redness, swelling, or masses, exudates, or evidence of obstruction, uvula midline. Mucous membranes moist. Neck: Trachea midline, no thyromegaly or masses palpated, and no cervical lymphadenopathy. Supple, full range of motion without nuchal rigidity, or vertebral point tenderness. No Meningismus. Chest/axilla: Normal chest wall appearance and motion. Nontender with no deformity. No lesions are appreciated. Cardiovascular: Regular rate and rhythm with a normal S1 and S2. No gallops, murmurs, or rubs. Normal PMI, no JVD. No pulse deficits. Respiratory: Lungs have equal breath sounds bilaterally, clear to auscultation and percussion. No rales, rhonchi or wheezes noted. No increased work of breathing, no retractions or nasal flaring. Abdomen/GI: Soft, non-tender, with normal bowel sounds. No distension or tympany. No guarding or rebound. No evidence of tenderness throughout. Back: No spinal tenderness. No costovertebral tenderness. Full range of motion. Skin: Warm, dry with normal turgor. Normal color with no rashes, no lesions, and no evidence of cellulitis. MS/ Extremity: Pulses equal, no cyanosis. Neurovascular intact. Full, normal range of motion. Neuro: Awake and alert, GCS 15, oriented to person, place, time, and situation. Cranial nerves II-XII grossly intact. Motor strength 5/5 in all extremities. Sensory grossly intact. Cerebellar exam normal. Normal gait. Psych: Awake, alert, with orientation to person, place and time. Behavior, mood, and affect are within normal limits. Vital Signs: 20:19 BP 135 / 71; Pulse 81; Resp 18; Temp 98.4; Pulse Ox 95% ; Weight 95.25 kg; Height 5 ft. cp4 9 in. ; 21:16 BP 127 / 69; Pulse 82; Resp 18; Pulse Ox 95% ; cp4 20:19 Body Mass Index 31.01 (95.25 kg, 175.26 cm) cp4 MDM: 20:28 Medical Screening Exam initiated sp3 21:08 ED course: Patient's blood sugar 407. No indication for any medication at this time. sp3 Vital signs are normal. We will refill his metformin and safely discharge him home.. Administered Medications: No medications were administered Disposition Summary: 02/16/25 21:09 Discharge Ordered Notes: Location: Home sp3 Condition: Stable sp3 Diagnosis - Hyperglycemia, medication refill sp3 Followup: sp3 - With: Private Physician - When: Upon discharge from the Emergency Department - Reason: Continuance of care Discharge Instructions: - Discharge Summary Sheet sp3 - Hyperglycemia sp3 Forms: - Medication Reconciliation Form sp3 - Antibiotic Education sp3 - Prescription Opioid Use sp3 - Patient Portal Instructions sp3 - Leadership Thank You Letter sp3 Prescriptions: - Metformin 1,000 mg Oral tablet - take 1 tablet ORAL route every 12 hours with morning and evening meals; 60 sp3 tablet; Refills: 0, Product Selection Permitted Signatures: Garett Torres MD MD sp3 Jazmin Adam cp4
--- NOTE | 2025-02-16 21:09 | ER ---
Nurse's Notes [facility] Name: Chi Kelley Age: 55 yrs Sex: Male : 1970 Arrival Date: 02/16/2025 Time: 20:08 Bed 7 Private MD: Diagnosis: Hyperglycemia, medication refill Presentation: 02/16 20:19 Chief complaint: EMS states: hyperglycemia. BGL 407. Patient ran out of metformin last cp4 week and does not have a PCP. Coronavirus screen: Client denies travel out of the [place] in the last 14 days. At this time, the client does not indicate any symptoms associated with coronavirus-19. Ebola Screen: Patient negative for fever greater than or equal to 101.5 degrees Fahrenheit, and additional compatible Ebola Virus Disease symptoms Patient denies exposure to infectious person. Patient denies travel to an Ebola-affected area in the 21 days before illness onset. No symptoms or risks identified at this time. Initial Sepsis Screen: Does the patient meet any 2 criteria? No. Patient's initial sepsis screen is negative. Does the patient have a suspected source of infection? No. Patient's initial sepsis screen is negative. Risk Assessment: Do you want to hurt yourself or someone else? Patient reports no desire to harm self or others. Onset of symptoms was February 16, 2025. 20:19 Method Of Arrival: EMS: [facility] cp4 20:19 Acuity: DORIAN 3 cp4 21:17 Care prior to arrival: Medication(s) given: Normal saline infusion, 1000 mL. cp4 Triage Assessment: 20:21 General: Appears in no apparent distress. comfortable, Behavior is calm, cooperative, cp4 appropriate for age. Pain: Complains of pain in headache Pain does not radiate. Pain currently is 7 out of 10 on a pain scale. EENT: No signs and/or symptoms were reported regarding the EENT system. Neuro: Level of Consciousness is awake, alert, obeys commands, Oriented to person, place, time, situation. Cardiovascular: Patient's skin is warm and dry. Respiratory: Airway is patent Respiratory effort is even, unlabored. GI: No signs and/or symptoms were reported involving the gastrointestinal system. : No signs and/or symptoms were reported regarding the genitourinary system. Derm: No signs and/or symptoms reported regarding the dermatologic system. Musculoskeletal: No signs and/or symptoms reported regarding the musculoskeletal system. Historical: - Allergies: 20:21 Hydrocodone-Acetaminophen; cp4 - PMHx: 20:21 depressive disorder; GERD; diabetes mellitus; Glaucoma; thyroid disease; cp4 - Immunization history:: Adult Immunizations up to date. - Infectious Disease History:: Denies. - Social history:: Smoking status: Patient denies any tobacco usage or history of. Screenin:23 [facility] ED Fall Risk Assessment (Adult) History of falling in the last 3 months, cp4 including since admission No falls in past 3 months (0 pts) Confusion or Disorientation No (0 pts) Intoxicated or Sedated No (0 pts) Impaired Gait No (0 pts) Mobility Assist Device Used No (0 pt) Altered Elimination No (0 pt) Score/Fall Risk Level 0 - 2 = Low Risk Oriented to surroundings, Maintained a safe environment, Assessed \T\ reinforced patient's understanding of fall precautions, Hourly rounding (assess needs \T\ fall precautionary measures) done. Abuse screen: Denies threats or abuse. Denies injuries from another. Nutritional screening: No deficits noted. Tuberculosis screening: No symptoms or risk factors identified. Assessment: 20:23 Reassessment: No changes from previously documented assessment. cp4 Vital Signs: 20:19 BP 135 / 71; Pulse 81; Resp 18; Temp 98.4; Pulse Ox 95% ; Weight 95.25 kg; Height 5 ft. cp4 9 in. ; 21:16 BP 127 / 69; Pulse 82; Resp 18; Pulse Ox 95% ; cp4 20:19 Body Mass Index 31.01 (95.25 kg, 175.26 cm) cp4 ED Course: 20:16 Patient arrived in ED. cp4 20:16 Jazmin Adam is Primary Nurse. cp4 20:17 Garett Torres MD is Attending Physician. sp3 20:21 Triage completed. cp4 20:21 Arm band placed on right wrist. Patient placed in an exam room, on a stretcher. cp4 20:23 Bed in low position. Call light in reach. Side rails up X 1. cp4 20:23 No provider procedures requiring assistance completed. Maintain EMS IV. Dressing cp4 intact. Good blood return noted. Site clean \T\ dry. Gauge \T\ site: 20G RAC. 21:16 Provided Education on: hyperglycemia. cp4 21:17 intact, bleeding controlled, No redness/swelling at site. Pressure dressing applied. cp4 Administered Medications: No medications were administered Medication: 20:23 VIS not applicable for this client. cp4 Outcome: 21:09 Discharge ordered by . sp3 21:17 Discharged to home ambulatory, cp4 21:17 Condition: stable 21:17 Discharge instructions given to patient, family, Instructed on discharge instructions, follow up and referral plans. medication usage, Demonstrated understanding of instructions, follow-up care, medications, Prescriptions given X 1, 21:20 Patient left the ED. cp4 Signatures: Garett Torres MD MD sp3 Jazmin Adam cp4
[2025-02-16 21:31] VITALS: TEMP 98.4; O2SAT 95
[2025-02-16 21:33] VITALS: BP 127/69
== END 2025-02-16 21:20 | disposition home or self-care (01) ==
LOC: ER 20:08
DX: E11.65 Type 2 diabetes mellitus with hyperglycemia (principal); Z76.0 Encounter for issue of repeat prescription
CPT/HCPCS: 99283

== ENCOUNTER 2025-02-20 19:04 | Emergency (ER) | payer OTHER ==
[2025-02-20 20:02] LABS: PT Prothrombin Time 11.7 SECONDS (10-13.0); PTT, Activated Partial Thromb 30.8 SECONDS (27.2-37.4); Protime INR 1.03
[2025-02-20 20:12] LABS: ALT/SGPT 92 U/L (16-61); Albumin 3.5 g/dL (3.4-5.0); Albumin/Globulin Ratio 0.9 (1.1-1.8); Alkaline Phosphatase 93 U/L (45-117); Anion Gap 9.5 mEq/L (5.0-15.0); BUN Blood Urea Nitrogen 9 mg/dL (7-18); Barbiturates NEGATIVE (NEGATIVE); Benzodiazepines NEGATIVE (NEGATIVE); Bicarbonate 27 mEq/L (21-32); Bilirubin Total 0.4 mg/dL (0.2-1.0); Cocaine NEGATIVE (NEGATIVE); Globulin 3.9 g/dL (2.3-3.5); Glomerular Filtration Rate 87 ml/min (=/>90); Glucose Level 292 mg/dL (74-106); METHAMPHETAM NEGATIVE (NEGATIVE); Methadone NEGATIVE (NEGATIVE); Opiates NEGATIVE (NEGATIVE); Phencyclidine NEGATIVE (NEGATIVE); Protein, Total 7.4 g/dL (6.4-8.2); Sodium Level 134 mEq/L (136-145); THC Cannibis NEGATIVE (NEGATIVE)
[2025-02-20 20:13] LABS: AST/SGOT 49 U/L (15-37); Bilirubin Direct < 0.2 mg/dL (0-0.2); Bilirubin Indirect, Calculated 0.2 mg/dL (0.2-0.8); Potassium 3.5 mEq/L (3.5-5.1)
--- NOTE | 2025-02-20 20:16 | EDPHYS ---
Physician Documentation [facility] Name: Chi Kelley Age: 55 yrs Sex: Male : 1970 Arrival Date: 02/20/2025 Time: 19:04 Bed 19 Private MD: ED Physician Yassine Jauregui HPI: 02/20 20:04 This 55 yrs old Male presents to ER via EMS with complaints of Suicidal Ideation. kb 20:04 Pt is a 55 year old male who presents for suicidal ideations. States he hears voices kb that tell him to kill himself so he tried to cut his left wrist. Denies homicidal ideations. Historical: - Allergies: 19:18 Hydrocodone-Acetaminophen; ha1 - Home Meds: 19:18 levothyroxine oral [Active]; ha1 - PMHx: 19:18 depressive disorder; diabetes mellitus; GERD; Glaucoma; thyroid disease; ha1 - Immunization history:: Adult Immunizations up to date. - Infectious Disease History:: Denies. - Social history:: Smoking status: Patient reports the use of cigarette tobacco products, smokes one-half pack cigarettes per day. ROS: 20:03 Constitutional: As per HPI kb Exam: 20:03 Constitutional: This is a well developed, well nourished patient who is awake, alert, kb and in no acute distress. Head/Face: Normocephalic, atraumatic. ENT: Moist Mucous membranes Cardiovascular: Regular rate Respiratory: Respirations even and unlabored. No increased work of breathing. Talking in full sentences MS/ Extremity: Pulses equal, no cyanosis. Neurovascular intact. Full, normal range of motion. Neuro: Awake and alert, GCS 15, oriented to person, place, time, and situation. 20:03 Skin: injury, abrasion(s), small abrasion noted, moderate sized abrasion noted, of the dorsal aspect of left forearm, multiple, 21:13 ECG was reviewed by the Attending Physician. kb Vital Signs: 19:18 BP 114 / 76; Pulse 90; Resp 18 S; Temp 98.2(O); Pulse Ox 97% on R/A; Weight 95.25 kg; ha1 Height 5 ft. 11 in. ; Pain 6/10; 19:18 Body Mass Index 29.29 (95.25 kg, 180.34 cm) ha1 19:18 Pain Scale: Adult ha1 [place] Coma Score: 19:26 Eye Response: spontaneous(4). Motor Response: obeys commands(6). Verbal Response: dd2 oriented(5). Total: 15. MDM: 19:19 Medical Screening Exam initiated kb 20:03 Differential diagnosis: depression, suicidal ideations, suicidal gesture, kb hallucinations. Data reviewed: vital signs, nurses notes. Consideration of Admission/Observation pt will be transferred to inpatient psychiatric facility on voluntary basis. Historians other than the Patient: EMS: [facility]. Counseling: I had a detailed discussion with the patient and/or guardian regarding the historical points, exam findings, and any diagnostic results supporting the discharge/admit diagnosis, the need to transfer to another facility, [facility] does not immediately have the required specialist. 20:33 Management of patient was discussed with the following: Behavioral Health Provider: Dr jennifer Orlando accepts pt for transfer to [facility] without conference. 02/20 19:19 Order name: Acetaminophen; Complete Time: 20:14 kb 02/20 19:19 Order name: Basic Metabolic Panel; Complete Time: 20:14 kb 02/20 19:19 Order name: CBC with Diff; Complete Time: 21:08 kb 02/20 19:19 Order name: ETOH Level; Complete Time: 20:15 kb 02/20 19:19 Order name: Hepatic Function; Complete Time: 20:14 kb 02/20 19:19 Order name: PT-INR; Complete Time: 20:03 kb 02/20 19:19 Order name: Ptt, Activated; Complete Time: 20:03 kb 02/20 19:19 Order name: Salicylate; Complete Time: 21:09 kb 02/20 19:19 Order name: Urine Drug Screen; Complete Time: 20:13 kb 02/20 19:19 Order name: EKG; Complete Time: 19:20 kb 02/20 19:19 Order name: EKG - Nurse/Tech; Complete Time: 19:36 kb 02/20 19:19 Order name: IV Saline Lock; Complete Time: 19:48 kb 02/20 19:19 Order name: Labs collected and sent; Complete Time: 19:48 kb 02/20 19:19 Order name: Suicide Precautions; Complete Time: 19:36 kb 02/20 19:19 Order name: Suicide Screening ([place]); Complete Time: 20:55 kb 02/20 19:19 Order name: Wound Care: clean and dress; Complete Time: 19:36 kb EC:13 Rate is 81 beats/min. Rhythm is regular. QRS [place] is Normal. AL interval is normal at kb 174 msec. QRS interval is normal at 82 msec. QT interval is normal at 422 msec. Administered Medications: 20:43 Drug: Ativan IVP 1 mg IVP once Route: IVP; Site: right antecubital; dd2 20:55 Follow up: Response: No adverse reaction dd2 Disposition Summary: 02/20/25 20:16 Transfer Ordered Notes: Transfer Location: Psych Facility kb Reason: Higher level of care kb Condition: Stable kb Problem: new kb Symptoms: are unchanged kb Accepting Physician: Dr Orlando(02/20/25 21:35) al5 Diagnosis - Suicidal ideations kb - Auditory hallucinations kb - Abrasion of left forearm kb Forms: - Medication Reconciliation Form kb - SBAR form kb Signatures: Dispatcher [employer] EDMS Erika Hackett, NIKKI-C ONCOLOGY SPECIALIST-Ckb Deepthi Schulte, RN RN ha1 Linda Davis RN RN al5 MARLYS LIU RN RN dd2 Corrections: (The following items were deleted from the chart) 19:20 19:20 ACETAMINOPHEN+C.LAB.BRZ ordered. EDMS EDMS 19:20 19:20 BASIC METABOLIC PANEL+C.LAB.BRZ ordered. EDMS EDMS 19:20 19:20 CBC+H.LAB.BRZ ordered. EDMS EDMS 19:20 19:20 ETHANOL+C.LAB.BRZ ordered. EDMS EDMS 19:20 19:20 HEPATIC FUNCTION+C.LAB.BRZ ordered. EDMS EDMS 19:20 19:20 PROTIME (+INR)+COAG.LAB.BRZ ordered. EDMS EDMS 19:20 19:20 PTT, ACTIVATED+COAG.LAB.BRZ ordered. EDMS EDMS 19:20 19:20 SALICYLATE+C.LAB.BRZ ordered. EDMS EDMS 19:20 19:20 URINE DRUG SCREEN+UC.LAB.BRZ ordered. EDMS EDMS 20:33 20:16 Dr rodriguez kb 21:35 20:33 Dr Orlando kb al5
--- NOTE | 2025-02-20 20:16 | ER ---
Nurse's Notes [facility] Name: Chi Kelley Age: 55 yrs Sex: Male : 1970 Arrival Date: 02/20/2025 Time: 19:04 Bed 19 Private MD: Diagnosis: Suicidal ideations;Auditory hallucinations;Abrasion of left forearm Presentation: 02/20 19:18 Chief complaint: EMS states: REPORTS SUICIDAL IDEATIONS, SUPERFICIAL CUTS ON THE LEFT ha1 ARM THAT WERE DONE WITH A RAZOR BLADE. HEARING VOICES THAT ARE TELLING HIM TO KILL HIMSELF. 19:18 Coronavirus screen: Client denies travel out of the [place] in the last 14 days. Ebola ha1 Screen: No symptoms or risks identified at this time. Initial Sepsis Screen: Does the patient meet any 2 criteria? No. Patient's initial sepsis screen is negative. Does the patient have a suspected source of infection? No. Patient's initial sepsis screen is negative. Risk Assessment: Do you want to hurt yourself or someone else? Patient reports no desire to harm self or others. Onset of symptoms was February 20, 2025. 19:18 Method Of Arrival: EMS: [facility] ha1 19:18 Acuity: DORIAN 2 ha1 Triage Assessment: 19:18 General: Appears comfortable, Behavior is cooperative. Pain: Complains of pain in ha1 dorsal aspect of left forearm Pain currently is 5 out of 10 on a pain scale. Quality of pain is described as burning, aching. Neuro: Level of Consciousness is awake, alert, obeys commands, Oriented to person, place, time, situation, Denies SUICIDAL IDEATION . Cardiovascular: Capillary refill < 3 seconds Patient's skin is warm and dry. Respiratory: Airway is patent Respiratory effort is even, unlabored, Respiratory pattern is regular, symmetrical. GI: No signs and/or symptoms were reported involving the gastrointestinal system. Abdomen is round non-distended. : No signs and/or symptoms were reported regarding the genitourinary system. Derm: Skin is pink, warm \\T\\ dry. Musculoskeletal: Circulation, motion, and sensation intact. Historical: - Allergies: 19:18 Hydrocodone-Acetaminophen; ha1 - Home Meds: 19:18 levothyroxine oral [Active]; ha1 - PMHx: 19:18 depressive disorder; diabetes mellitus; GERD; Glaucoma; thyroid disease; ha1 - Immunization history:: Adult Immunizations up to date. - Infectious Disease History:: Denies. - Social history:: Smoking status: Patient reports the use of cigarette tobacco products, smokes one-half pack cigarettes per day. Screenin:53 [facility] ED Fall Risk Assessment (Adult) History of falling in the last 3 months, dd2 including since admission No falls in past 3 months (0 pts) Confusion or Disorientation No (0 pts) Intoxicated or Sedated No (0 pts) Impaired Gait No (0 pts) Mobility Assist Device Used No (0 pt) Altered Elimination No (0 pt) Score/Fall Risk Level 0 - 2 = Low Risk Oriented to surroundings, Maintained a safe environment, Educated pt \\T\\ family on fall prevention, incl call for assistance when getting out of bed, Assessed \\T\\ reinforced patient's understanding of fall precautions, Provided non-skid footwear, Hourly rounding (assess needs \\T\\ fall precautionary measures) done. Abuse screen: Denies threats or abuse. Denies injuries from another. Nutritional screening: No deficits noted. Tuberculosis screening: No symptoms or risk factors identified. Assessment: 19:26 General: Appears in no apparent distress. comfortable, Behavior is calm, cooperative, dd2 appropriate for age. Pain: Denies pain. Neuro: Level of Consciousness is awake, alert, obeys commands, Oriented to person, place, time, situation, Appropriate for age. Cardiovascular: No deficits noted. Respiratory: No deficits noted. Airway is patent Respiratory effort is even, unlabored, Respiratory pattern is regular, symmetrical. GI: No deficits noted. No signs and/or symptoms were reported involving the gastrointestinal system. : No deficits noted. No signs and/or symptoms were reported regarding the genitourinary system. EENT: No deficits noted. No signs and/or symptoms were reported regarding the EENT system. Derm: Wound noted left arm and dorsal aspect of left forearm Wound is ABRASIONS NOTED. Musculoskeletal: No deficits noted. No signs and/or symptoms reported regarding the musculoskeletal system. Circulation, motion, and sensation intact. Range of motion: intact in all extremities. Injury Description: Abrasion sustained to left arm and dorsal aspect of left forearm. 20:30 Reassessment: REPORT GIVEN TO ELIAS AT [facility]. dd2 Psych: 19:18 [place] Suicide Severity Screening: In the past month, have you wished you were dd2 or wished you could go to sleep and not wake up? Patient responds "yes." "In the past month, have you actually had any thoughts of killing yourself?" Patient responds "yes." "In your lifetime, have you ever done anything, started to do anything, or prepared to do anything to end your life?" Patient responds "yes.". Subjective: Patient's mood is hopeless, Delusions are denied, Hallucinations are auditory, Having thoughts of suicide. Plan for suicide is CUTTING AN ARTERY. Objective: Patient is cooperative, Speech is normal, Affect is flat, Patient has mutilated themselves by ABRASIONS TO LT ARM. Interventions: Removed personal items and placed in bag. Patient placed in hospital gown. Searched person for dangerous items. Urine collected and sent for urine drug test. Belonging list filled out. Safety Checks: Personal items have been removed. Door is open. No visitors are present at this time. Pt denies substance abuse. Commitment: Patient will be a voluntary commitment. Vital Signs: 19:18 BP 114 / 76; Pulse 90; Resp 18 S; Temp 98.2(O); Pulse Ox 97% on R/A; Weight 95.25 kg; ha1 Height 5 ft. 11 in. ; Pain 6/10; 19:18 Body Mass Index 29.29 (95.25 kg, 180.34 cm) ha1 19:18 Pain Scale: Adult ha1 [place] Coma Score: 19:26 Eye Response: spontaneous(4). Motor Response: obeys commands(6). Verbal Response: dd2 oriented(5). Total: 15. ED Course: 19:18 Patient arrived in ED. kb 19:19 Erika Hackett FNP-C [facility]. kb 19:19 Yassine Jauregui MD is Attending Physician. kb 19:34 Triage completed. ha1 19:47 MARLYS LIU RN is Primary Nurse. dd2 19:48 Initial lab(s) drawn, by me, sent to lab. Inserted saline lock: 20 gauge in right rk3 antecubital area, using aseptic technique. Blood collected. Flushed with 10 mL NS. 20:18 [place] [facility] 20:30 patient was accepted to [facility] to Dr. 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 20:53 No provider procedures requiring assistance completed. Patient maintains SpO2 dd2 saturation greater than 95% on room air. 20:53 Patient has correct armband on for positive identification. Bed in low position. Noise dd2 minimized. Warm blanket given. Pillow given. Verbal reassurance given. Patient is placed in psych hold. Patient is placed in psych hold. 21:02 IV discontinued, intact, bleeding controlled, No redness/swelling at site. Pressure dd2 dressing applied. 21:34 Provided Education on: transfer education. al5 Administered Medications: 20:43 Drug: Ativan IVP 1 mg IVP once Route: IVP; Site: right antecubital; dd2 20:55 Follow up: Response: No adverse reaction dd2 Medication: 20:53 VIS not applicable for this client. dd2 Outcome: 20:16 ER care complete, transfer ordered by MD. rodriguez 21:34 Transferred by ground EMS Transfer form completed. al5 21:34 Condition: stable 21:34 Instructed on the need for transfer, Demonstrated understanding of instructions, 21:35 Patient left the ED. al5 Signatures: Erika Hackett, LUCILA SPENCERP-Deepthi Burgess RN RN ha1 Hollie Siddiqui Amanda, RN RN al5 MARLYS LIU RN RN dd2 Jay Garcia rk3
[2025-02-20] MEDS ORDERED: LORazepam 2 MG/ML VIAL ONE (20:37)
[2025-02-20 20:46] LABS: Absolute Basophils 0.1 K/uL (0-0.5); Absolute Eosinophils 0.3 K/uL (0-0.5); Absolute Lymphocytes (CBC) 2.7 K/uL (0.7-4.9); Absolute Monocytes 0.6 K/uL (0.1-1.3); Absolute Neutrophil 5.1 K/uL (1.8-8.0); Basophils % 1.5 % (0-1.3); Eosinophils % 3.2 % (0-4.4); Hematocrit 42.2 % (39.6-49.0); Hemoglobin 14.9 g/dL (13.6-17.9); Lymphocytes % 30.9 % (15.3-44.8); MCHC 35.3 g/dL (32.0-36.0); MCV 90.8 fL (80-100); MPV 9.8 fL (7.6-11.3); Monocytes % 6.7 % (3.3-12.3); Neutrophils % 57.7 % (41.7-73.7); Nucleated Red Blood Cells % 0.1 % (0-0); Platelets 169 thou/uL (152-406); RBC Red Blood Cell Count 4.65 M/uL (4.33-5.43)
[2025-02-21 05:22] VITALS: BP 114/76; TEMP 98.2; O2SAT 97
--- NOTE | 2025-02-22 11:46 | EKG ---
Test Date: 2025-02-20 Test Time: 19:26:23 City Dispatcher: MIRI MEASUREMENT RESULTS: Intervals: Rate: 81 ND: 174 QRSD: 82 QT: 364 QTc: 422 Asher: P: 57 ND: 174 QRS: 39 T: 44 INTERPRETIVE STATEMENTS: Normal sinus rhythm Normal ECG Compared to ECG 01/18/2025 20:55:58 No significant changes Electronically Signed On 02-22-25 11:42:29 CDT by Noel Azul
== END 2025-02-20 21:35 ==
LOC: ER 19:04
DX: R45.851 Suicidal ideations (principal); R44.0 Auditory hallucinations; S50.812A Abrasion of left forearm, initial encounter; F32.A Depression, unspecified; F17.210 Nicotine dependence, cigarettes, uncomplicated
CPT/HCPCS: 36415; 80048; 80076; 80143; 80179; 80307; 82077; 85025; 85610; 85730; 93005; 96374; 99285

== ENCOUNTER 2025-06-04 17:26 | Emergency (ER) | payer OTHER ==
[2025-06-04] MEDS ORDERED: NA CHLORIDE 0.9% 1,000 ML ONE (17:58)
[2025-06-04 18:00] LABS: Absolute Lymphocytes (CBC) 1.6 K/uL (0.7-4.9); Hematocrit 39.8 % (39.6-49.0); Hemoglobin 13.5 g/dL (13.6-17.9); MCH 30.4 pg (27.0-35.0); MCHC 33.9 g/dL (32.0-36.0); MCV 89.8 fL (80-100); MPV 9.1 fL (7.6-11.3); Nucleated RBC Absolute Count 0.0 (0-0); Nucleated Red Blood Cells % 0.1 % (0-0); RBC Red Blood Cell Count 4.44 M/uL (4.33-5.43); White Blood Count 6.50 thou/uL (4.3-10.9)
[2025-06-04 18:12] LABS: Base Excess, VBG 2.3 mmol/L (-2.0-3.0); HCO3, Venous Blood Gas 26.5 mmol/L (21.0-29.0); O2 Saturation, VBG 96.7 % (40.0-70.0); PCO2, Venous Blood Gas 39 mmHg (41-51); PH, Venous Blood Gas 7.44 (7.32-7.42); PO2, Venous Blood Gas 84 mmHg (25-40)
[2025-06-04 18:18] LABS: Lipase 49.0 U/L (13-75)
--- NOTE | 2025-06-04 18:19 | RAD REPORT ---
Procedure: Chest Single View HISTORY: Chest pain COMPARISON: October 2024 FINDINGS: The lungs appear clear of acute infiltrate. No significant pleural effusion noted. The heart is normal size. IMPRESSION: No acute abnormality is displayed.
[2025-06-04 18:30] LABS: Anion Gap 14.1 mEq/L (5.0-15.0); Potassium 3.1 mEq/L (3.5-5.1)
[2025-06-04 18:31] LABS: ALT/SGPT 86 U/L (16-61); AST/SGOT 63 U/L (15-37); Albumin 3.1 g/dL (3.4-5.0); Albumin/Globulin Ratio 0.8 (1.1-1.8); Alkaline Phosphatase 97 U/L (45-117); BUN Blood Urea Nitrogen 8 mg/dL (7-18); Bilirubin Indirect, Calculated 0.2 mg/dL (0.2-0.8); Globulin 3.8 g/dL (2.3-3.5); Magnesium 1.6 mg/dL (1.6-2.4); NT PRO-BNP 14 pg/mL (<125); Troponin High Sensitivity 4.3 pg/mL (<58.9)
[2025-06-04 18:32] LABS: Glucose Level 449 mg/dL (74-106)
[2025-06-04] MEDS ORDERED: INSULIN REGULAR (HUMAN) 100 UNIT/ML ONE (18:42)
[2025-06-04] MEDS ORDERED: POTASSIUM 25 MEQ EFFERV TAB ONE (18:55)
--- NOTE | 2025-06-04 19:57 | ER ---
Nurse's Notes [facility] Name: Chi Kelley Age: 55 yrs Sex: Male : 1970 Arrival Date: 06/04/2025 Time: 17:25 Bed 13 Private MD: Diagnosis: Chest pain, unspecified;Hyperglycemia, unspecified Presentation: 06/04 17:26 Chief complaint: EMS states: toned out for chest pain. Patient had just rec'd some bad me1 news and started having chest pain 10/10 and sweating. EMS gave aspirin 324mg PO and established 20g RAC and administered NS 250 ml. Pain on arrival to ER is 4/10. Hx of anxiety. BGL "HI" for EMS, states he took his metformin today. Coronavirus screen: Vaccine status: Patient reports being unvaccinated. Ebola Screen: No symptoms or risks identified at this time. Initial Sepsis Screen: Does the patient meet any 2 criteria? HR > 90 bpm. No. Patient's initial sepsis screen is negative. Does the patient have a suspected source of infection? No. Patient's initial sepsis screen is negative. Risk Assessment: Do you want to hurt yourself or someone else? Patient reports no desire to harm self or others. Onset of symptoms was June 04, 2025 at 16:30. 17:26 Method Of Arrival: EMS: [facility] 17:26 Acuity: DORIAN 3 me1 Triage Assessment: 17:29 General: Appears Behavior is cooperative, appropriate for age, anxious. Pain: Complains me1 of pain in chest Pain does not radiate. Pain currently is 4 out of 10 on a pain scale. Quality of pain is described as heavy, Pain began suddenly, Is intermittent. EENT: No signs and/or symptoms were reported regarding the EENT system. Neuro: Level of Consciousness is awake, alert, obeys commands, Oriented to person, place, time, situation, Appropriate for age. Cardiovascular: Reports chest pain, diaphoresis, Patient's skin is warm and dry. Respiratory: Airway is patent Respiratory effort is even, unlabored, Respiratory pattern is regular, symmetrical. GI: No signs and/or symptoms were reported involving the gastrointestinal system. : No signs and/or symptoms were reported regarding the genitourinary system. Derm: Skin is intact, is healthy with good turgor, Skin is pink, warm \\T\\ dry. Musculoskeletal: No signs and/or symptoms reported regarding the musculoskeletal system. Circulation, motion, and sensation intact. Range of motion: intact in all extremities. Historical: - Allergies: 17:29 No Known Allergies; me1 - PMHx: 17:29 depressive disorder; diabetes mellitus; GERD; Glaucoma; thyroid disease; Anxiety; me1 - PSHx: 17:29 None; me1 - Immunization history:: Adult Immunizations up to date. - Infectious Disease History:: Denies. - Social history:: Smoking status: Patient reports the use of cigarette tobacco products, smokes one-half pack cigarettes per day. Screenin:31 [facility] ED Fall Risk Assessment (Adult) History of falling in the last 3 months, me1 including since admission No falls in past 3 months (0 pts) Confusion or Disorientation No (0 pts) Intoxicated or Sedated No (0 pts) Impaired Gait No (0 pts) Mobility Assist Device Used No (0 pt) Altered Elimination No (0 pt) Score/Fall Risk Level 0 - 2 = Low Risk Maintained a safe environment, Provided non-skid footwear, Hourly rounding (assess needs \\T\\ fall precautionary measures) done. Abuse screen: Denies threats or abuse. Nutritional screening: No deficits noted. Tuberculosis screening: No symptoms or risk factors identified. Assessment: 17:31 General: See triage assessment. Pain: Complains of pain in chest Pain does not radiate. me1 Pain currently is 4 out of 10 on a pain scale. Quality of pain is described as heavy, Pain began gradually, Is continuous. Vital Signs: 17:26 BP 118 / 83; Pulse 95; Resp 17; Temp 98.3; Pulse Ox 94% ; Weight 90.72 kg; Height 5 ft. me1 9 in. ; Pain 4/10; 19:00 BP 116 / 81; Pulse 61; Resp 16; Pulse Ox 100% ; me1 20:00 BP 116 / 73; Pulse 79; Resp 16; Temp 98.2; Pulse Ox 98% ; me1 17:26 Body Mass Index 29.53 (90.72 kg, 175.26 cm) me1 17:26 Pain Scale: Adult ia1 ED Course: 17:25 Patient arrived in ED. me1 17:29 Triage completed. me1 17:29 Arm band placed on Patient placed in an exam room. me1 17:31 Patient has correct armband on for positive identification. Bed in low position. Call me1 light in reach. Side rails up X2. Provided Education on: POC. Verbalized understanding.. Client placed on continuous cardiac and pulse oximetry monitoring. NIBP monitoring applied. 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 Pulse ox on. NIBP on. 17:31 No provider procedures requiring assistance completed. Maintain EMS IV. Dressing me1 intact. Good blood return noted. Site clean \\T\\ dry. Gauge \\T\\ site: 20g RAC. Flushed with 10 mL NS. Patient maintains SpO2 saturation greater than 95% on room air. 17:34 Erika Hackett FNP-C is [facility]. kb 17:34 Donavon Aguilar DO is Attending Physician. kb 17:42 Susanna Rogers RN is Primary Nurse. me1 17:54 BETA HYDROXYBUTYRATE Sent. me1 17:54 Lipase Sent. me1 17:54 Phosphorus Sent. me1 17:54 Basic Metabolic Panel Sent. me1 17:54 CBC with Diff Sent. me1 17:54 LFT's Sent. me1 17:54 Magnesium Sent. me1 17:54 NT PRO-BNP Sent. me1 17:54 Troponin HS Sent. me1 17:54 Initial lab(s) drawn, by me, sent to lab. EKG done, by ED staff, reviewed by Erika GAYTAN. 18:06 XRAY Chest (1 view) In Process Unspecified. EDMS 18:10 VBG Sent. me1 19:24 Troponin HS Sent. me1 20:09 IV discontinued, intact, bleeding controlled, No redness/swelling at site. Pressure me1 dressing applied. Administered Medications: 18:09 Drug: NS 0.9% IV 1000 ml IV at 1 bolus Per protocol; to be given as a bolus over 60 me1 minutes Route: IV; Rate: 1 bolus; Site: right antecubital; 19:24 Follow up: Response: No adverse reaction; IV Status: Completed infusion; IV Intake: me1 1000ml 18:45 Drug: Insulin Regular Human IVP 5 units IVP once {Co-Signature: iw (Joann Moreau1 RN).} Route: IVP; Site: right antecubital; 20:04 Follow up: Response: No adverse reaction me1 18:58 Drug: Potassium PO Effervescent Tablet 50 mEq PO once; dissolve in 4 ounces of water or me1 juice Route: PO; 19:23 Follow up: Response: No adverse reaction me1 Medication: 17:31 VIS not applicable for this client. me1 Intake: 19:24 IV: 1000ml; Total: 1000ml. me1 Outcome: 19:56 Discharge ordered by MD. rodriguez 20:09 Discharged to home ambulatory, with significant other, ia1 20:09 Condition: stable 20:09 Discharge instructions given to patient, significant other, Instructed on discharge instructions, follow up and referral plans. Demonstrated understanding of instructions, follow-up care, 20:10 Patient left the ED. me1 Signatures: Dispatcher [employer] EDErika Gaffney, RELIGIOUS STUDIES PROFESSOR-C RELIGIOUS STUDIES PROFESSOR-Susanna Hough, RN RN me1 Joann Moreau RN iw
--- NOTE | 2025-06-04 19:57 | EDPHYS ---
Physician Documentation [facility] Name: Chi Kelley Age: 55 yrs Sex: Male : 1970 Arrival Date: 06/04/2025 Time: 17:25 Bed 13 Private MD: ED Physician Donavon Aguilar HPI: 06/04 17:48 This 55 yrs old Male presents to ER via EMS with complaints of Chest Pain. 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 kb Describes the pain as squeezing and twisting to the heart. Pt states it felt like a panic attack. Pain is improving now. Also reports blood glucose has been reading "HI" for the past few days. . Historical: - Allergies: 17:29 No Known Allergies; me1 - PMHx: 17:29 depressive disorder; diabetes mellitus; GERD; Glaucoma; thyroid disease; Anxiety; me1 - PSHx: 17:29 None; me1 - Immunization history:: Adult Immunizations up to date. - Infectious Disease History:: Denies. - Social history:: Smoking status: Patient reports the use of cigarette tobacco products, smokes one-half pack cigarettes per day. ROS: 17:47 Constitutional: As per HPI kb Exam: 17:47 Constitutional: This is a well developed, well nourished patient who is awake, alert, kb and in no acute distress. Head/Face: Normocephalic, atraumatic. ENT: Moist Mucous membranes Cardiovascular: Regular rate Respiratory: Respirations even and unlabored. No increased work of breathing. Talking in full sentences Skin: Warm, dry with normal turgor. Normal color. MS/ Extremity: Pulses equal, no cyanosis. Neurovascular intact. Full, normal range of motion. Neuro: Awake and alert, GCS 15, oriented to person, place, time, and situation. 17:47 ECG was reviewed by the Attending Physician. Vital Signs: 17:26 BP 118 / 83; Pulse 95; Resp 17; Temp 98.3; Pulse Ox 94% ; Weight 90.72 kg; Height 5 ft. me1 9 in. ; Pain 4/10; 19:00 BP 116 / 81; Pulse 61; Resp 16; Pulse Ox 100% ; me1 20:00 BP 116 / 73; Pulse 79; Resp 16; Temp 98.2; Pulse Ox 98% ; me1 17:26 Body Mass Index 29.53 (90.72 kg, 175.26 cm) me1 17:26 Pain Scale: Adult me1 MDM: 17:34 Medical Screening Exam initiated kb 17:48 Data reviewed: vital signs, nurses notes. kb 19:54 Differential diagnosis: arrhythmia, acute mi, anxiety, hyperglycemia, DKA, CAD. kb Consideration of Admission/Observation Escalation of care including admission/observation considered. admission considered for chest pain, but heart score 2 and repeat troponin decreased. Historians other than the Patient: Spouse/Significant Other: spouse. Care significantly affected by the following chronic conditions: Diabetes. Counseling: I had a detailed discussion with the patient and/or guardian regarding the historical points, exam findings, and any diagnostic results supporting the discharge/admit diagnosis, lab results, radiology results, the need for outpatient follow up, a family practitioner, to return to the emergency department if symptoms worsen or persist or if there are any questions or concerns that arise at home. 06/04 17:34 Order name: Basic Metabolic Panel; Complete Time: 18:38 kb 06/04 17:34 Order name: CBC with Diff; Complete Time: 18:06 kb 06/04 17:34 Order name: LFT's; Complete Time: 18:38 kb 06/04 17:34 Order name: Magnesium; Complete Time: 18:38 kb 06/04 17:34 Order name: NT PRO-BNP; Complete Time: 18:38 kb 06/04 17:34 Order name: Troponin HS; Complete Time: 18:38 kb 06/04 17:38 Order name: BETA HYDROXYBUTYRATE; Complete Time: 18:19 kb 06/04 17:38 Order name: Lipase; Complete Time: 18:19 kb 06/04 17:38 Order name: Phosphorus; Complete Time: 18:19 kb 06/04 17:48 Order name: VBG; Complete Time: 18:15 kb 06/04 19:23 Order name: Troponin HS; Complete Time: 19:51 sd1 06/04 20:00 Order name: Glucose, Ancillary Testing; Complete Time: 20:03 EDMS 06/04 17:34 Order name: XRAY Chest (1 view); Complete Time: 18:21 kb 06/04 17:34 Order name: EKG; Complete Time: 17:35 kb 06/04 17:34 Order name: Cardiac monitoring; Complete Time: 17:54 kb 18 17:34 Order name: EKG - Nurse/Tech; Complete Time: 17:54 kb 18 17:34 Order name: IV Saline Lock; Complete Time: 17:54 kb 18 17:34 Order name: Labs collected and sent; Complete Time: 17:54 kb 0818 17:34 Order name: O2 Per Protocol; Complete Time: 17:54 kb 18 17:34 Order name: O2 Sat Monitoring; Complete Time: 17:54 kb 18 17:38 Order name: NPO; Complete Time: 17:54 kb EC:47 Rate is 86 beats/min. Rhythm is regular. QRS [place] is Normal. DC interval is normal at kb 184 msec. QRS interval is normal at 86 msec. QT interval is normal at 433 msec. Administered Medications: 18:09 Drug: NS 0.9% IV 1000 ml IV at 1 bolus Per protocol; to be given as a bolus over 60 me1 minutes Route: IV; Rate: 1 bolus; Site: right antecubital; 19:24 Follow up: Response: No adverse reaction; IV Status: Completed infusion; IV Intake: me1 1000ml 18:45 Drug: Insulin Regular Human IVP 5 units IVP once {Co-Signature: desi (Joann Moreau me1 RN).} Route: IVP; Site: right antecubital; 20:04 Follow up: Response: No adverse reaction me1 18:58 Drug: Potassium PO Effervescent Tablet 50 mEq PO once; dissolve in 4 ounces of water or me1 juice Route: PO; 19:23 Follow up: Response: No adverse reaction me1 Disposition: 20:01 I was immediately available on-site in the Emergency Department for consultation in the ms3 care of the patient. Disposition Summary: 06/04/25 19:56 Discharge Ordered Notes: Location: Home kb Condition: Stable kb Diagnosis - Chest pain, unspecified kb - Hyperglycemia, unspecified kb Followup: kb - With: Emergency Department - When: As needed - Reason: Worsening of condition Followup: kb - With: Private Physician - When: 2 - 3 days - Reason: Recheck today's complaints, Continuance of care, Re-evaluation by your physician Discharge Instructions: - Discharge Summary Sheet kb - Nonspecific Chest Pain, Adult, [id number] kb - Hyperglycemia, [id number] kb Forms: - Medication Reconciliation Form kb - Antibiotic Education kb - Prescription Opioid Use kb - Patient Portal Instructions kb - Leadership Thank You Letter kb Signatures: Dispatcher [employer] Erika Galan, BOAT OUTFITTER-C BOAT OUTFITTER-Donavon Mg DO DO ms3 Susanna Rogers RN RN me1 Jaonn Moreau RN iw
[2025-06-05 02:08] VITALS: BP 116/73; TEMP 98.2; O2SAT 98
== END 2025-06-04 20:10 | disposition home or self-care (01) ==
LOC: ER 17:26
DX: E11.65 Type 2 diabetes mellitus with hyperglycemia (principal); F41.9 Anxiety disorder, unspecified; F17.210 Nicotine dependence, cigarettes, uncomplicated
CPT/HCPCS: 96361; 93005; 85025; 80048; 36415; 83735; 84100; 82947; 80076; 84484 ×2; 83690; 82010; 83880; 71045; 96374; 99285; 82803; J1815; J7030

== ENCOUNTER 2025-07-30 00:12 | Emergency (ER) | payer OTHER ==
[2025-07-30] MEDS ORDERED: KETOROLAC 30 MG/ML INJ ONE (00:37)
[2025-07-30 00:50] LABS: Urine Microscopic Reflex YN NO UMIC
[2025-07-30] MEDS ORDERED: INSULIN REGULAR (HUMAN) 100 UNIT/ML ONE ×2 (01:15→03:06)
[2025-07-30] MEDS ORDERED: NA CHLORIDE 0.9% 1,000 ML ONE (01:16)
[2025-07-30 01:35] LABS: Absolute Lymphocytes (CBC) 3.4 K/uL (0.7-4.9); Hematocrit 39.9 % (39.6-49.0); Hemoglobin 13.9 g/dL (13.6-17.9); MCH 31.3 pg (27.0-35.0); MCHC 34.7 g/dL (32.0-36.0); MCV 90.2 fL (80-100); MPV 9.6 fL (7.6-11.3); Nucleated RBC Absolute Count 0.0 (0-0); Nucleated Red Blood Cells % 0.1 % (0-0); RBC Red Blood Cell Count 4.43 M/uL (4.33-5.43); White Blood Count 8.30 thou/uL (4.3-10.9)
[2025-07-30 01:52] LABS: Anion Gap 11.5 mEq/L (5.0-15.0); BUN Blood Urea Nitrogen 10.0 mg/dL (7-18); Potassium 3.5 mEq/L (3.5-5.1)
[2025-07-30 01:54] LABS: Glucose Level 430.0 mg/dL (74-106)
--- NOTE | 2025-07-30 02:48 | RAD REPORT ---
EXAM: CT Lumbar Spine Without Intravenous Contrast FACILITY: [facility] CLINICAL HISTORY: 55 years, Male; PAIN TECHNIQUE: Axial computed tomography images of the lumbar spine without intravenous contrast. Sagittal and c oronal reformatted images were created and reviewed. This CT exam was performed using one or more of the following dose reduction techniques: automated exposure control, adjustment of the mA and/or kV according to patient size, and/or use of iterative reconstruction technique. COMPARISON: CT abdomen pelvis dated January 25, 2025 FINDINGS: Vertebrae: Unremarkable. No acute fracture. 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 Soft tissues: Unremarkable. Kidneys and ureters: Nonobstructive right nephrolithiasis. IMPRESSION: 1. 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 2. Nonobstructive right nephrolithiasis. Electronically signed by: Blas Anguiano MD 07/30/2025 02:44 AM CDT RP H Due to temporary technical issues with the PACS/[employer] reporting system, reports are being juliette d by the in-house radiologist without review as a courtesy to ensure prompt reporting the interpreting radiologist is fully responsible for the content of the report. Transcribed Date/Time: 07/30/2025 2:47 AM
--- NOTE | 2025-07-30 03:10 | EDPHYS ---
Physician Documentation [facility] Name: Chi Kelley Age: 55 yrs Sex: Male : 1970 Arrival Date: 07/30/2025 Time: 00:12 Bed 7 Private MD: VIKY Physician Ian Rhoades HPI: 07/30 00:43 This 55 yrs old Male presents to ER via Ambulatory with complaints of Back paige Pain. 00:43 The patient presents with pain that is acute, with no known mechanism of injury, and paige decreased range of motion. The symptoms are located in the low back, lumbar area and right low back. Onset: The symptoms/episode began/occurred 3 day(s) ago. The pain radiates to the lumbar area and right low back. Associated signs and symptoms: The patient has no apparent associated signs or symptoms. Modifying factors: The patient symptoms are alleviated by remaining still, rest, the patient symptoms are aggravated by any movement, bending. Severity of symptoms: At their worst the symptoms were moderate, in the emergency department the symptoms are unchanged. The patient has not experienced similar symptoms in the past. Historical: - Allergies: 00:31 No Known Allergies; br2 - PMHx: 00:31 Anxiety; depressive disorder; depressive disorder; diabetes mellitus; GERD; Glaucoma; br2 thyroid disease; - Immunization history:: Adult Immunizations not up to date. - Infectious Disease History:: Denies. - Social history:: Smoking status: Patient reports the use of cigarette tobacco products, smokes one-half pack cigarettes per day, Patient/guardian denies using alcohol, street drugs. - Family history:: not pertinent. ROS: 00:43 Constitutional: Negative for fever, chills, and weight loss, Eyes: Negative for injury, paige pain, redness, and discharge, ENT: Negative for injury, pain, and discharge, Neck: Negative for injury, pain, and swelling, Cardiovascular: Negative for chest pain, palpitations, and edema, Respiratory: Negative for shortness of breath, cough, wheezing, and pleuritic chest pain, Abdomen/GI: Negative for abdominal pain, nausea, vomiting, diarrhea, and constipation, : Negative for injury, bleeding, discharge, and swelling, MS/Extremity: Negative for injury and deformity, Skin: Negative for injury, rash, and discoloration, Neuro: Negative for headache, weakness, numbness, tingling, and seizure, Psych: Negative for depression, anxiety, suicide ideation, homicidal ideation, and hallucinations, Allergy/Immunology: Negative for hives, rash, and allergies, Endocrine: Negative for neck swelling, polydipsia, polyuria, polyphagia, and marked weight changes, Hematologic/Lymphatic: Negative for swollen nodes, abnormal bleeding, and unusual bruising, 00:43 Back: Positive for injury or acute deformity, decreased range of motion, pain with movement, of the lumbar area, low back area and right low back, Exam: 00:43 Constitutional: This is a well developed, well nourished patient who is awake, alert, paige and in no acute distress. Head/Face: Normocephalic, atraumatic. Eyes: Pupils equal round and reactive to light, extra-ocular motions intact. Lids and lashes normal. Conjunctiva and sclera are non-icteric and not injected. Cornea within normal limits. Periorbital areas with no swelling, redness, or edema. ENT: Nares patent. No nasal discharge, no septal abnormalities noted. Tympanic membranes are normal and external auditory canals are clear. Oropharynx with no redness, swelling, or masses, exudates, or evidence of obstruction, uvula midline. Mucous membranes moist. Neck: Trachea midline, no thyromegaly or masses palpated, and no cervical lymphadenopathy. Supple, full range of motion without nuchal rigidity, or vertebral point tenderness. No Meningismus. Chest/axilla: Normal chest wall appearance and motion. Nontender with no deformity. No lesions are appreciated. Cardiovascular: Regular rate and rhythm with a normal S1 and S2. No gallops, murmurs, or rubs. Normal PMI, no JVD. No pulse deficits. Respiratory: Lungs have equal breath sounds bilaterally, clear to auscultation and percussion. No rales, rhonchi or wheezes noted. No increased work of breathing, no retractions or nasal flaring. Abdomen/GI: Soft, non-tender, with normal bowel sounds. No distension or tympany. No guarding or rebound. No evidence of tenderness throughout. Male : Normal genitalia with no discharge or lesions. Skin: Warm, dry with normal turgor. Normal color with no rashes, no lesions, and no evidence of cellulitis. MS/ Extremity: Pulses equal, no cyanosis. Neurovascular intact. Full, normal range of motion., bilateral aka Neuro: Awake and alert, GCS 15, oriented to person, place, time, and situation. Cranial nerves II-XII grossly intact. Motor strength 5/5 in all extremities. Sensory grossly intact. Cerebellar exam normal. Normal gait. Psych: Awake, alert, with orientation to person, place and time. Behavior, mood, and affect are within normal limits. 00:43 Back: pain, that is mild, that is moderate, ROM is decreased, with flexion, with extension, normal spinal alignment noted, CVA tenderness, is absent, vertebral tenderness, is not appreciated, muscle spasm, is appreciated in the left low back, left mid back, right mid back and right low back, Vital Signs: 00:28 BP 106 / 82; Pulse 83; Resp 18; Temp 97.2; Pulse Ox 97% ; Weight 108.86 kg; Height 6 br2 ft. 2 in. ; Pain 10/10; 01:30 BP 118 / 79; Pulse 78; Resp 18; Pulse Ox 97% ; vc1 01:30 BP 116 / 63; Pulse 66; Resp 17; Pulse Ox 96% ; vc1 00:28 Body Mass Index 30.81 (108.86 kg, 187.96 cm) br2 00:28 Pain Scale: Adult br2 William Coma Score: 00:43 Eye Response: spontaneous(4). Motor Response: obeys commands(6). Verbal Response: paige oriented(5). Total: 15. MDM: 00:20 Medical Screening Exam initiated paige 00:49 Differential diagnosis: Fatigue Fracture Obesity Pyelonephritis spinal injury, sprain, paige Ureterolithiasis vertebral fracture. Data reviewed: vital signs, nurses notes, lab test result(s), radiologic studies, CT scan. Consideration of Admission/Observation Escalation of care including admission/observation considered. I considered the following discharge prescriptions or medication management in the emergency department Medications were administered in the Emergency Department. See MAR. Independent interpretation of the following test(s) in the Emergency Department CT Scan: My interpretation is ct lumbar. Test considered but Not performed: Labs: no cbc , no cmp. Historians other than the Patient: pt well informed. Care significantly affected by the following chronic conditions: Diabetes, Obesity, depression, gerd. Counseling: I had a detailed discussion with the patient and/or guardian regarding the historical points, exam findings, and any diagnostic results supporting the discharge/admit diagnosis, lab results, radiology results, the need for outpatient follow up, for definitive care, a family practitioner, a neurologist. 07/30 00:24 Order name: UA Rfx Ike Cult if indicated; Complete Time: 00:59 paige 07/30 01:23 Order name: CBC with Diff; Complete Time: 03:07 vc1 07/30 01:23 Order name: BMP; Complete Time: 03:07 vc1 07/30 01:23 Order name: Glucose, Ancillary Testing; Complete Time: 03:07 EDMS 07/30 02:57 Order name: Glucose, Ancillary Testing; Complete Time: 03:07 EDMS 07/30 00:24 Order name: CT Lumbar Spine Wo Con; Complete Time: 03:07 paige 07/30 00:59 Order name: Blood Glucose Level; Complete Time: 01:33 paige 07/30 01:34 Order name: IV Saline Lock - Large Bore; Complete Time: 01:35 vc1 07/30 01:34 Order name: Labs collected and sent; Complete Time: 01:35 vc1 Administered Medications: 00:44 Drug: Ketorolac IM 60 mg IM once Route: IM; Site: right ventrogluteal; vc1 01:00 Follow up: Response: No adverse reaction; Marked relief of symptoms vc1 01:33 Drug: Dexamethasone PO 10 mg PO once Route: PO; vc1 02:00 Follow up: Response: No adverse reaction; Marked relief of symptoms vc1 01:34 Drug: NS 0.9% IV 1000 ml IV at 1 bolus Per protocol; to be given as a bolus over 60 vc1 minutes Route: IV; Rate: 1 bolus; Site: right antecubital; 02:34 Follow up: IV Status: Completed infusion; IV Intake: 1000ml vc1 01:36 Drug: Insulin Regular Human Sub-Q 10 units Sub-Q once {Co-Signature: gerson (sandra Huang RN).} Route: Sub-Q; Site: right lower abdomen; 03:00 Follow up: Response: No adverse reaction; Blood sugar is unchanged vc1 03:09 Drug: Insulin Regular Human IVP 10 units IVP once {Co-Signature: vc1 (Danae Bloom RN).} Route: IVP; Site: right antecubital; 03:26 Follow up: Response: No adverse reaction; Medication administered at discharge. vc1 Disposition Summary: 07/30/25 03:10 Discharge Ordered Notes: Location: Home [facility] Problem: [facility] Symptoms: have improved paige Condition: Stable paige Diagnosis - Sciatica, right side paige - Sciatica paige - Low back pain paige - Strain of muscle, fascia and tendon of lower back paige - Type 2 diabetes mellitus with hyperglycemia paige Followup: paige - With: Private Physician - When: 2 - 3 days - Reason: Recheck today's complaints, Continuance of care, Re-evaluation by your physician Followup: paige - With: Brian Santos MD - When: 2 - 3 days - Reason: Recheck today's complaints, Re-evaluation by your physician Discharge Instructions: - Discharge Summary Sheet paige - Acute Back Pain, Adult paige - Carbohydrate Counting for Diabetes Mellitus, Adult paige - Musculoskeletal Pain paige - Sciatica paige - Diabetes Mellitus and Nutrition, Adult paige - Sciatica, [id number] paige - Radicular Pain paige - Gestational Diabetes Mellitus, Self-Care [facility] Forms: - Medication Reconciliation Form [facility] - Antibiotic Education [facility] - Prescription Opioid Use [facility] - Patient Portal Instructions [facility] - Leadership Thank You Letter [facility] Prescriptions: - diclofenac sodium 50 mg Oral tablet, delayed release (enteric coated) - take 1 tablet ORAL route 3 times per day; 21 tablet; Refills: 0, Product [facility] Selection Permitted - methocarbamol 750 mg Oral tablet - take 1 tablet ORAL route every 4-6 hours; 28 tablet; Refills: 0, Product [facility] Selection Permitted - Tylenol-Codeine #3 300mg-30mg Oral tablet - take 2 tablets ORAL route every 6 hours As needed; 16 tablet; Refills: 0, [facility] Product Selection Permitted - Dexamethasone 2mg Oral tablet - take 1 tablet ORAL route daily for 4 days; 4 tablet; Refills: 0, Product [facility] Selection Permitted Signatures: Dispatcher [employer] Ian Rogers MD MD cha Calcote, Vanessa RN RN vc1 Jerald Huang RN RN bm8 Angie Mock RN RN br2 Jerald Huang RN bm8 Danae Bloom RN vc1 Corrections: (The following items were deleted from the chart) 00:33 00:31 Allergies: Hydrocodone-Acetaminophen; br2 br2
--- NOTE | 2025-07-30 03:10 | ER ---
Nurse's Notes [facility] Name: Chi Kelley Age: 55 yrs Sex: Male : 1970 Arrival Date: 07/30/2025 Time: 00:12 Bed 7 Private MD: Diagnosis: Sciatica, right side;Sciatica;Low back pain;Strain of muscle, fascia and tendon of lower back;Type 2 diabetes mellitus with hyperglycemia Presentation: 07/30 00:28 Chief complaint: Patient states: C/O LOWER BACK PAIN THAT RADIATES TO RIGHT FLANK AREA br2 AND DOWN RLE. Coronavirus screen: Client denies travel out of the [place] in the last 14 days. Ebola Screen: Patient denies exposure to infectious person. Initial Sepsis Screen: Does the patient meet any 2 criteria? No. Patient's initial sepsis screen is negative. Does the patient have a suspected source of infection? No. Patient's initial sepsis screen is negative. Risk Assessment: Do you want to hurt yourself or someone else? Patient reports no desire to harm self or others. Onset of symptoms was July 23, 2025. 00:28 Method Of Arrival: Ambulatory br2 00:28 Acuity: DORIAN 3 br2 Triage Assessment: 00:31 General: Appears in no apparent distress. comfortable, Behavior is calm, cooperative. br2 Pain: Complains of pain in right lower back and right leg Pain currently is 10 out of 10 on a pain scale. Historical: - Allergies: 00:31 No Known Allergies; br2 - PMHx: 00:31 Anxiety; depressive disorder; depressive disorder; diabetes mellitus; GERD; Glaucoma; br2 thyroid disease; - Immunization history:: Adult Immunizations not up to date. - Infectious Disease History:: Denies. - Social history:: Smoking status: Patient reports the use of cigarette tobacco products, smokes one-half pack cigarettes per day, Patient/guardian denies using alcohol, street drugs. - Family history:: not pertinent. Screenin:[facility] ED Fall Risk Assessment (Adult) History of falling in the last 3 months, vc1 including since admission No falls in past 3 months (0 pts) Confusion or Disorientation No (0 pts) Intoxicated or Sedated No (0 pts) Impaired Gait No (0 pts) Mobility Assist Device Used No (0 pt) Altered Elimination No (0 pt) Score/Fall Risk Level 0 - 2 = Low Risk Oriented to surroundings, Maintained a safe environment, Educated pt \T\ family on fall prevention, incl call for assistance when getting out of bed, Assessed \T\ reinforced patient's understanding of fall precautions, Hourly rounding (assess needs \T\ fall precautionary measures) done. Abuse screen: Denies threats or abuse. Nutritional screening: No deficits noted. Tuberculosis screening: No symptoms or risk factors identified. Assessment: 00:45 General: Appears in no apparent distress. uncomfortable, slender, Behavior is calm, vc1 cooperative, appropriate for age. Pain: Complains of pain in right lower back Pain radiates to buttocks and right leg. Neuro: Level of Consciousness is awake, alert, obeys commands, Oriented to person, place, time, situation, Appropriate for age. Cardiovascular: Heart tones S1 S2 present Capillary refill < 3 seconds Patient's skin is warm and dry. Respiratory: Airway is patent Respiratory effort is even, unlabored, Respiratory pattern is regular, symmetrical, Breath sounds are clear bilaterally. GI: Abdomen is non-distended. : No deficits noted. No signs and/or symptoms were reported regarding the genitourinary system. EENT: No deficits noted. No signs and/or symptoms were reported regarding the EENT system. Derm: Skin is intact, is healthy with good turgor, Skin is dry, Skin is normal, Skin temperature is warm. Musculoskeletal: Circulation, motion, and sensation intact. Range of motion: intact in all extremities. Vital Signs: 00:28 BP 106 / 82; Pulse 83; Resp 18; Temp 97.2; Pulse Ox 97% ; Weight 108.86 kg; Height 6 br2 ft. 2 in. ; Pain 10/10; 01:30 BP 118 / 79; Pulse 78; Resp 18; Pulse Ox 97% ; vc1 01:30 BP 116 / 63; Pulse 66; Resp 17; Pulse Ox 96% ; vc1 00:28 Body Mass Index 30.81 (108.86 kg, 187.96 cm) br2 00:28 Pain Scale: Adult br2 William Coma Score: 00:43 Eye Response: spontaneous(4). Motor Response: obeys commands(6). Verbal Response: paige oriented(5). Total: 15. ED Course: 00:16 Patient arrived in ED. mr 00:20 Ian Rhoades MD is Attending Physician. paige 00:31 Triage completed. br2 00:31 Arm band placed on right wrist. br2 00:34 Danae Bloom, RN is Primary Nurse. vc1 00:44 Patient has correct armband on for positive identification. Bed in low position. Call vc1 light in reach. Provided Education on: plan of care. Pulse ox on. NIBP on. 01:06 CT Lumbar Spine Wo Con In Process Unspecified. EDMS 01:35 No provider procedures requiring assistance completed. Initial lab(s) drawn, by de, vc1 sent to lab. Inserted saline lock: 20 gauge in right antecubital area, using aseptic technique. Blood collected. Flushed with 10 mL NS. 01:57 Notified ED physician of a critical lab result(s). GLUCOSE 430. br2 03:10 Brian Santos MD is Referral Physician. paige 03:24 IV discontinued, intact, bleeding controlled, No redness/swelling at site. Pressure vc1 dressing applied. Administered Medications: 00:44 Drug: Ketorolac IM 60 mg IM once Route: IM; Site: right ventrogluteal; vc1 01:00 Follow up: Response: No adverse reaction; Marked relief of symptoms vc1 01:33 Drug: Dexamethasone PO 10 mg PO once Route: PO; vc1 02:00 Follow up: Response: No adverse reaction; Marked relief of symptoms vc1 01:34 Drug: NS 0.9% IV 1000 ml IV at 1 bolus Per protocol; to be given as a bolus over 60 vc1 minutes Route: IV; Rate: 1 bolus; Site: right antecubital; 02:34 Follow up: IV Status: Completed infusion; IV Intake: 1000ml vc1 01:36 Drug: Insulin Regular Human Sub-Q 10 units Sub-Q once {Co-Signature: gerson (sandra Huang RN).} Route: Sub-Q; Site: right lower abdomen; 03:00 Follow up: Response: No adverse reaction; Blood sugar is unchanged vc1 03:09 Drug: Insulin Regular Human IVP 10 units IVP once {Co-Signature: 1 (Danae Bloom RN).} Route: IVP; Site: right antecubital; 03:26 Follow up: Response: No adverse reaction; Medication administered at discharge. vc1 Medication: 00:45 VIS not applicable for this client. vc1 Intake: 02:34 IV: 1000ml; Total: 1000ml. vc1 Outcome: 03:10 Discharge ordered by . paige 03:24 Discharged to home ambulatory, with significant other, vc1 03:24 Condition: stable 03:24 Discharge instructions given to patient, Instructed on discharge instructions, follow up and referral plans. medication usage, Demonstrated understanding of instructions, follow-up care, medications, Prescriptions given X 4, 03:25 Patient left the ED. vc1 Signatures: Dispatcher [employer] EDKS Ian Rhoades MD MD cha Rivera, Colleen, Reg Reg mr Danae Bloom RN RN vc1 Jerald Huang RN RN bm8 Angie Mock RN RN br2 Jerald Huang RN8 Danae Bloom RN vc1 Corrections: (The following items were deleted from the chart) 00:33 00:31 Allergies: Hydrocodone-Acetaminophen; br2 br2
[2025-07-30 08:51] VITALS: TEMP 97.2
[2025-07-30 08:53] VITALS: BP 116/63; O2SAT 96
== END 2025-07-30 03:25 | disposition home or self-care (01) ==
LOC: ER 00:12
DX: M54.41 Lumbago with sciatica, right side (principal); E11.65 Type 2 diabetes mellitus with hyperglycemia; S39.012A Strain of muscle, fascia and tendon of lower back, initial encounter; X58.XXXA Exposure to other specified factors, initial encounter
CPT/HCPCS: 96361; 85025; 80048; 36415; 82947 ×2; 81003; 72131; 96372; 96374; 99284; J1885; J8540; J1815 ×2; J7030